=== PATIENT | female | born 1985 | race Caucasian/White ===

== ENCOUNTER 2016-06-13 11:55 | Emergency (ER) | payer OTHER ==
[~2016-06-13] VITALS: Ht 167.6 cm; Wt 136.0 kg
[~2016-06-13 11:55] MED LIST: TRDI60 SC
[2016-06-13 12:02] VITALS: BP 199/120; PULSE 74; TEMP 36.6; O2SAT 96; Ht 167.6 cm; Wt 136.0 kg
[2016-06-13] MEDS ORDERED: PROMETHAZINE HCL INJ 25 MG/ML 1 ML VIAL IM STA (12:49)
[2016-06-13] MEDS ORDERED: MoRPHine SULFATE 10 MG/ML CARP/VIAL IM STA (12:49)
--- NOTE | 2016-06-14 22:23 | EMERGENCY ROOM VISIT NOTE ---
ED Visit Note First contact with patient: 12:22 CHIEF COMPLAINT: Migraine headache. HISTORY OF PRESENT ILLNESS: Ms. Carballo is a 30 year-old white female who ambulates into the ED accompanied by her complaining of a migraine headache. She reports a gradual onset of a severe migraine headache that started approximately 11 hours ago. The pain is constant and it is slowly increasing in severity. This is not the worst headache of the life and is similar to previous migraines. Currently she describes the headache as a constant pressure sensation/pain in the right frontal and temporal areas. She rates the pain a 8/10. The pain is radiating down the right side of the face into the anterior neck area. She has not identified any aggravating factors related to the pain. She reports taking 2 doses of her recently prescribed Imitrex without relief. There is been associated dizziness, light sensitivity and nausea without vomiting; earlier course she also reports that she had mild blurry vision this is normal for her and this is subsequently resolved. She denies fever, chills, sweats, skin eruptions, skin color changes, lightheadedness, hearing changes, difficulty speaking, difficulty swallowing, difficulty ambulating/coordinating body movements, sinus/nasal drainage/ congestion, sore throats, voice changes, neck pain and stiffness, shortness of breath, cough, chest pain/discomfort, abdominal pain, extremity weakness/ numbness/tingling, recent head or eye trauma. REVIEW OF SYSTEMS: As noted above in History of Present Illness. All body systems were reviewed with this patient and found to be negative unless noted above otherwise. PAST MEDICAL HISTORY: Migraine headaches, diabetes, hypertension, asthma, bronchitis, pneumonia, gallbladder disease, unspecified urinary problems, gastroesophageal reflux, status post cholecystectomy, and laparoscopic procedures for exploratory pelvic pain and ovarian cyst. CURRENT MEDICATIONS: Medications Dose Route/Sig Max Daily Dose Days Date Category Dose Instructions Inderal La (Propranolol HCl) 120 Mg Capcr 120 Mg PO DAILY 04/03/16 Reported Ketorolac Tromethamine 60 Mg/2 Ml Inj 60 Mg SC WK PRN 03/19/16 Reported NO MORE THAN ONCE PER WEEK Clonazepam 0.5 Mg Tab 0.5 Mg PO BID PRN 03/19/16 Reported Zofran Odt (Ondansetron HCl) 4 Mg Tab 4 Mg SL Q4H PRN 03/19/16 Reported Meclizine HCl 25 Mg Tab 25 Mg PO TID PRN 03/19/16 Reported Glucophage (Metformin Hcl) 1,000 Mg Tab 1,000 Mg PO DAILY 03/19/16 Reported Sumatriptan Succinate 6 Mg/0.5 Ml Inj 6 Mg SC UD 03/19/16 Reported MAY REPEAT DOSE ONCE IN ONE HOUR IF MIGRAINE PERSIST Excedrin Migraine (Mijukdq-Rixeiumgtdnee-Bzecmaav) 1 Tab Tab 2 Tabs PO UD PRN 01/17/16 Reported TAKE PER PACKAGE DIRECTIONS Control Pills (Miscellaneous) Tab 1 Tab PO DAILY 12/27/15 Reported Sinequan (Doxepin HCl) 25 Mg Cap 25 Mg PO TID 12/12/15 Reported Sertraline HCl 100 Mg Tab 100 Mg PO QPM 11/28/15 Reported Zantac (Ranitidine HCl) 150 Mg Tab 150 Mg PO BID 05/17/15 Reported ALLERGIES TO MEDICATIONS: Verapamil. SOCIAL HISTORY: Patient is currently employed;she feels safe in her home environment; she denies tobacco and alcohol use. PHYSICAL EXAM: Vital Signs: Date Time Temp Pulse Resp B/P Pulse Ox O2 Delivery O2 Flow Rate FiO2 06/13/16 12:02 36.6 74 16 199/120 96 GENERAL: 30 year-old white female in moderate distress due to pain, afebrile and hemodynamically stable. Patient found sitting in a darkened room. NEUROLOGIC: Awake, alert and oriented to person place and time. Answering questions appropriately and following commands. Normal gait. Cranial nerves II- XII grossly intact. Good hand eye coordination. No focal neurologic deficits noted. SKIN: Warm, dry and pink. No rashes, lesions or soft tissue trauma noted. HEENT: Normocephalic, atraumatic. There is no bony deformity, crepitus or abnormal skin lesions. PERRLA. EOMI without nystagmus. Sclera is white and conjunctivae. External ears are nontender. Auditory canals are pink and patent. Tympanic membranes are non bulging and not erythematous. Patient is moderately photophobic precluding funduscopic exam. Oral cavity is moist and pink. Airway is patent. No posterior pharyngeal erythema or edema. NECK: Soft and supple. No tenderness through the central cervical region or cervical musculature. Full range of motion in flexion, extension and rotation of the cervical spine No lymphadenopathy, jugular venous distention, or bruits noted. THORAX: Lungs clear to auscultation and equal bilaterally with no wheezing, crackles, rhonchi or stridor and equal chest wall movements. HEART: Regular rate and rhythm with no murmurs, rubs or gallops. ABDOMEN: Soft and nontender with bowel sounds present in all quadrants; no rigidity, rebound tenderness, organomegaly or guarding. MUSCULOSKELETAL: Full range of motion of all joints without any significant discomfort and the gait is normal. 5/5 muscle strength in flexion, extension, abduction and abduction of the shoulders, flexion and extension of the elbows, pronation supination of the forearms, flexion and extension of the wrist and employment trainer strength. ED COURSE: Patient is assessed with history and physical examination. Patient was given 10 mg of morphine IM and 25 mg of Phenergan IM for the pain and nausea. Patient was reassessed. Patient was educated about her condition and instructed on her treatment plan; she verbalized understanding and agreement with this plan. CLINICAL IMPRESSION: Acute migraine headache. DECISION MAKIN-year-old female who presents for evaluation of headache. She is afebrile, well appearing, and hemodynamically stable. She has no signs of a sinus, dental , or ear infection and no evidence of meningismus. She is neurologically intact. I do not suspect a headache to be secondary to a subarachnoid hemorrhage, meningitis, encephalitis, or intracranial mass lesion. DISPOSITION: Patient was discharged to home in stable condition accompanied by her ; prior to discharge she was reassessed and subjectively reported she was feeling better and rated her discomfort 4/10. DISCHARGE INSTRUCTIONS: Rest at home, in a quiet darkened room and allow the medication to work for the pain. Follow-up with her neurologist for definitive care and treatment. Return to the emergency department as needed for worsening/uncontrolled pain, any abnormal neurological symptoms, fevers or in accordance with your pain management plan.
[2016-07-19] MEDS ORDERED: SNQ/25 PO (02:02)
[2016-09-27] MEDS ORDERED: B-CO1CAP3 PO (13:35)
[2016-12-25] MEDS ORDERED: ZLF/100 PO (13:30)
[2016-12-25] MEDS ORDERED: GABA-112 PO (13:35)
[2016-12-25] MEDS ORDERED: ZNTT/150 PO (13:45)
[2016-12-25] MEDS ORDERED: KETO30IN5 INJ (15:29)
[2016-12-25] MEDS ORDERED: ASPI-390 PO (16:14)
[2016-12-25] MEDS ORDERED: INDSR/120 PO (16:18)
[2016-12-25] MEDS ORDERED: SNQ/50 PO (19:38)
[2016-12-25] MEDS ORDERED: HYDR4TAB2 PO (19:38)
[2016-12-25] MEDS ORDERED: BCPILLS PO (21:01)
[2016-12-25] MEDS ORDERED: SUMA1INJ5 IM (21:06)
[2016-12-25] MEDS ORDERED: ANT25 PO (21:06)
[2016-12-25] MEDS ORDERED: METF-384 PO (21:06)
[2016-12-25] MEDS ORDERED: KLN5X PO (21:12)
[2017-03-22] MEDS ORDERED: BACL10TA PO (13:12)
== END 2016-06-13 13:21 | disposition home or self-care (01) ==
LOC: C.EDB 11:56 → C.EDD 13:21
DX: G43.909 Migraine, unspecified, not intractable, without status migrainosus (principal); J45.909 Unspecified asthma, uncomplicated; K21.9 Gastro-esophageal reflux disease without esophagitis; E11.9 Type 2 diabetes mellitus without complications; I10 Essential (primary) hypertension; Z79.84 Long term (current) use of oral hypoglycemic drugs

== ENCOUNTER 2016-06-26 00:36 | Emergency (ER) | payer OTHER ==
[~2016-06-26] VITALS: Ht 167.6 cm; Wt 137.3 kg
[2016-06-26 00:40] VITALS: Ht 167.6 cm; Wt 137.3 kg
[2016-06-26] MEDS ORDERED: PROMETHAZINE HCL INJ 25 MG/ML 1 ML VIAL IM STA (00:54)
[2016-06-26] MEDS ORDERED: MoRPHine SULFATE 10 MG/ML CARP/VIAL IM STA (00:54)
[2016-06-26 01:38] VITALS: BP 151/99; PULSE 60; TEMP 36.6; O2SAT 98
--- NOTE | 2016-06-26 02:04 | EMERGENCY ROOM VISIT NOTE ---
History Report prepared by Michelle: Henna Sage Under the Supervision of: Dr. Munir Avila M.D. First contact with patient: 00:44 Chief Complaint: HEADACHE Stated Complaint: MIGRAINE,DIZZY,THROWING UP History of Present Illness The patient is a 30 year old female who presents to the Emergency Room via family with complaints of a worsening headache with onset 3 days ago. She rates her pain as a 9/10. Per patient, she has a history of headaches and notes that this headache is like her typical headache. The patient states that the headache is in the back, left side of her head. She is sensitive to light and has nausea. The patient states that she has some weakness in her left arm, but that she has a history of pinched nerves and believes that this is causing her left arm weakness. The patient has some neck stiffness. She denies vomiting, fevers, chance of . Additionally, she notes that her family members are recovering from colds. She also notes that she is not due to blood pressure medications. Source of History: patient, spouse/significant other Onset: 3 days ago Position: head Symptom Intensity: 9/10 Timing: worsening Associated Symptoms: + chills, + nausea, No fevers, No vomiting Note: She is sensitive to light and has some neck stiffness. Review of Systems See HPI for pertinent positives & negatives. A total of 10 systems reviewed and were otherwise negative. Past Medical & Surgical Medical Problems: (1) 38 to 41 weeks gestation of (2) Asthma, Unspecified (3) Benign hypertension (4) Cephalopelvic disproportion (5) Cholecystectomy (6) Diabetes mellitus (7) Diverticulosis Colon (W/O Ment Of Hemorrhage) (8) Headache in (9) intrauterine 25 weeks 3 days (10) Irregular contractions (11) Kidney stone (12) Migraine Unspecified W/O Intractable Migraine (13) Obesity, Nos (14) Ovarian Cyst Nec/Nos (15) Polycystic Ovaries (16) Pure Hypercholesterolem (17) Reflux Esophagitis (18) Removal of ovarian cyst (19) Urin Tract Infection Nos Old medical records were reviewed. Nurse's notes were reviewed and I agree with. Family History Diabetes mellitus FH: cancer FH: gallbladder disease FH: heart disease FH: lung disease Hypertension Kidney disease Kidney stones Social History Smoking Status: Never Smoker Alcohol Use: none Drug Use: none Marital Status: Housing Status: lives with significant other Occupation Status: employed Current/Historical Medications Scheduled Control Pills ( Control Pills), 1 TAB PO DAILY Doxepin (Sinequan), 25 MG PO TID Metformin Hcl (Glucophage), 1,000 MG PO DAILY Propranolol La (Inderal La), 120 MG PO DAILY Ranitidine (Zantac), 150 MG PO BID Sertraline HCl (Sertraline HCl), 100 MG PO QPM Sumatriptan Succinate (Sumatriptan Succinate), 6 MG SC UD Scheduled PRN Ceqvlle-Tlxhxrwvvphjs-Bcoxwhnp (Excedrin Migraine), 2 TABS PO UD PRN for Headache Clonazepam (Clonazepam), 0.5 MG PO BID PRN for Anxiety Ketorolac Tromethamine (Ketorolac Tromethamine), 60 MG SC WK PRN for Pain Meclizine HCl (Meclizine HCl), 25 MG PO TID PRN for Dizziness Ondasetron Odt (Zofran Odt), 4 MG SL Q4H PRN for Nausea Allergies Coded Allergies: Verapamil (Verified Adverse Reaction, Unknown, "Black Out", 06/26/16) Physical Exam Vital Signs Date Time Temp Pulse Resp B/P Pulse Ox O2 Delivery O2 Flow Rate FiO2 06/26/16 01:38 36.6 60 16 151/99 98 06/26/16 01:36 60 16 151/99 98 Room Air 06/26/16 00:40 36.6 61 16 159/100 98 Room Air Physical Exam General: Non ill appearing young female in no acute distress. HEENT: Normal cephalic atraumatic. Pupils are equal round and reactive to light. Sclera anicteric. Extraocular movements are intact. Oropharynx is pink with moist mucous membranes. No swelling of the mouth lips or tongue. Neck: Supple with a midline trachea. No meningeal signs or stiffness, no JVD or bruits. No Stridor. Kernig and Brudzinski signs Chest: Clear to auscultation bilaterally. No wheezes or rhonchi. No increased work of breathing. Heart: regular rate and rhythm. Abdomen: Soft nontender, nondistended without rebound guarding or rigidity. Extremities: No cyanosis clubbing or edema. No calf tenderness or assymetry Spine/Back. Non tender to palpation. No CVA tenderness Skin: Good turgor without rashes. Neurologic exam: Cranial nerves two through 12 are intact. Motor and sensation are intact and symmetrical throughout, no tremor. No numbness or weakness her left arm when I checked it I Medical Decision & Procedures Medications Administered Medications (Trade) Dose Ordered Sig/Bharat Route Start Time Stop Time Status Last Admin Dose Admin Morphine Sulfate (MoRPHine SULFATE INJ) 10 mg NOW STAT IM 06/26/16 00:54 06/26/16 00:55 DC 06/26/16 01:18 10 MG Promethazine HCl (Phenergan Inj) 25 mg NOW STAT IM 06/26/16 00:54 06/26/16 00:55 DC 06/26/16 01:18 25 MG ED Course 0045: Past medical records reviewed. The patient was evaluated in room B6, and a complete history and physical examination were performed. 0054: Phenergan 25 mg IM, Morphine Sulfate 10 mg IM 0005: Upon reevaluation, the patient is doing well. I discussed the results and treatment plan with the patient. She verbalized agreement of the treatment plan. The patient was discharged home. Medical Decision Differentials include, but are not limited to; migraine, infection, CVA, tension headache, meningitis. This patient comes in as described above. I do know her well from previous visits. she is here for headache which is consistent with her typical migraines. She has nothing by history or physical exam to suggest this is a nothing by a typical migraine .she's had no trauma and nothing to suggest meningitis encephalitis or toxicologic process. She has a normal neurologic exam. Her is the bedside and driving .she was given morphine 10 mg IM and Phenergan 25 mg IM. This is her second narcotic shot a month and she is on a two shot a month restriction. She should return if: headaches different than normal, worsening of symptoms, any new problems concerns. She is happy the plan and discharged to home Impression Primary Impression: Migraine Scribe Attestation The scribe's documentation has been prepared under my direction and personally reviewed by me in its entirety. I confirm that the note above accurately reflects all work, treatment, procedures, and medical decision making performed by me. Departure Information Dispostion Home / Self-Care Referrals Patricia Grullon D.O. (PCP) Forms HOME CARE DOCUMENTATION FORM, IMPORTANT VISIT INFORMATION Patient Instructions My [facility] Additional Instructions Rest Drink plenty of fluids Return if: worsening of symptoms, fever, numbness or weakness, any new problems or concerns Follow-up with your doctor on Tuesday for recheck
[2016-07-19] MEDS ORDERED: SNQ/25 PO (02:02)
[2016-09-27] MEDS ORDERED: B-CO1CAP3 PO (13:35)
[2016-12-25] MEDS ORDERED: ZLF/100 PO (13:30)
[2016-12-25] MEDS ORDERED: GABA-112 PO (13:35)
[2016-12-25] MEDS ORDERED: ZNTT/150 PO (13:45)
[2016-12-25] MEDS ORDERED: KETO30IN5 INJ (15:29)
[2016-12-25] MEDS ORDERED: ASPI-390 PO (16:14)
[2016-12-25] MEDS ORDERED: INDSR/120 PO (16:18)
[2016-12-25] MEDS ORDERED: HYDR4TAB2 PO (19:38)
[2016-12-25] MEDS ORDERED: SNQ/50 PO (19:38)
[2016-12-25] MEDS ORDERED: BCPILLS PO (21:01)
[2016-12-25] MEDS ORDERED: METF-384 PO (21:06)
[2016-12-25] MEDS ORDERED: ANT25 PO (21:06)
[2016-12-25] MEDS ORDERED: SUMA1INJ5 IM (21:06)
[2016-12-25] MEDS ORDERED: KLN5X PO (21:12)
== END 2016-06-26 01:39 | disposition home or self-care (01) ==
LOC: C.EDB 00:37
DX: G43.909 Migraine, unspecified, not intractable, without status migrainosus (principal); J45.909 Unspecified asthma, uncomplicated; I10 Essential (primary) hypertension; E11.9 Type 2 diabetes mellitus without complications; E66.9 Obesity, unspecified; E78.00 Pure hypercholesterolemia, unspecified; K21.9 Gastro-esophageal reflux disease without esophagitis; Z83.3 Family history of diabetes mellitus; Z83.79 Family history of other diseases of the digestive system; Z82.49 Family history of ischemic heart disease and other diseases of the circulatory system; Z83.6 Family history of other diseases of the respiratory system; Z84.1 Family history of disorders of kidney and ureter

== ENCOUNTER → 2016-06-29 | Outpatient (CLI) | payer OTHER ==
[~2016-06-29] MED LIST changes: +ANT25 PO; +ASPI-390 PO; +B-CO1CAP3 PO; +BCPILLS PO; +FLX10 PO; +GABA-112 PO; +HYDR-4313 PO; +HYDR-5688 PO; +HYDR4TAB2 PO; +IBUP-1277 PO; +INDSR/120 PO; +KETO30IN5 INJ; +KLN5X PO; +MECL1TAB42 PO; +METF-384 PO; +ONDA4TAB10 SL; +SERT25TA PO; +SNQ/25 PO; +SNQ/50 PO; +SUMA1INJ5 IM; +ZLF/100 PO; +ZNTT/150 PO
== END | disposition home or self-care (01) ==
LOC: C.PAPS 07:50
PROVIDERS: ATTEND Obstetrics & Gynecology
DX: Z12.4 Encounter for screening for malignant neoplasm of cervix (principal)

== ENCOUNTER 2016-07-19 14:52 | Emergency (ER) | payer OTHER ==
[~2016-07-19] VITALS: Ht 167.6 cm; Wt 136.3 kg
[~2016-07-19 14:52] MED LIST changes: -ANT25 PO; -ASPI-390 PO; -B-CO1CAP3 PO; -BCPILLS PO; -FLX10 PO; -GABA-112 PO; -HYDR-4313 PO; -HYDR-5688 PO; -HYDR4TAB2 PO; -IBUP-1277 PO; -INDSR/120 PO; -KETO30IN5 INJ; -KLN5X PO; -MECL1TAB42 PO; -METF-384 PO; -ONDA4TAB10 SL; -SERT25TA PO; -SNQ/50 PO; -SUMA1INJ5 IM; -ZLF/100 PO; -ZNTT/150 PO
[2016-07-19 15:05] VITALS: TEMP 37.1; Ht 167.6 cm; Wt 136.3 kg
[2016-07-19] MEDS ORDERED: PROMETHAZINE HCL INJ 25 MG/ML 1 ML VIAL IM STA (15:21)
[2016-07-19] MEDS ORDERED: MoRPHine SULFATE 10 MG/ML CARP/VIAL IM STA (15:21)
[2016-07-19 16:15] VITALS: BP 159/116; PULSE 82; O2SAT 97
--- NOTE | 2016-07-19 20:54 | EMERGENCY ROOM VISIT NOTE ---
ED Visit Note First contact with patient: 15:10 CHIEF COMPLAINT: Migraine headache. HISTORY OF PRESENT ILLNESS: Ms. Carballo is a 30 year-old white female who ambulates into the ED accompanied by her complaining of a migraine headache. She reports a gradual onset of a severe migraine headache that started approximately 15 hours ago. The pain is constant and it is slowly increasing in severity. This is not the worst headache of the life and is similar to previous migraines. Currently she describes the headache as a constant pressure sensation/pain in the right frontal and temporal areas. She rates the pain a 8/10. The pain is radiating down the right side of the face into the anterior neck area. She has not identified any aggravating factors related to the pain. She reports taking 2 doses of her recently prescribed Imitrex without relief. There is been associated dizziness, light sensitivity and nausea without vomiting; earlier course she also reports that she had mild blurry vision this is normal for her and this is subsequently resolved. She denies fever, chills, sweats, skin eruptions, skin color changes, lightheadedness, hearing changes, difficulty speaking, difficulty swallowing, difficulty ambulating/coordinating body movements, sinus/nasal drainage/ congestion, sore throats, voice changes, neck pain and stiffness, shortness of breath, cough, chest pain/discomfort, abdominal pain, extremity weakness/ numbness/tingling, recent head or eye trauma. REVIEW OF SYSTEMS: As noted above in History of Present Illness. All body systems were reviewed with this patient and found to be negative unless noted above otherwise. PAST MEDICAL HISTORY: Migraine headaches, diabetes, hypertension, asthma, bronchitis, pneumonia, gallbladder disease, unspecified urinary problems, gastroesophageal reflux, status post cholecystectomy, and laparoscopic procedures for exploratory pelvic pain and ovarian cyst. CURRENT MEDICATIONS: Medications Dose Route/Sig Max Daily Dose Days Date Category Dose Instructions Ketorolac Tromethamine 30 Mg/Ml Inj 30 Mg INJ WK PRN 07/19/16 Reported Inderal La (Propranolol HCl) 120 Mg Capcr 120 Mg PO BID 04/03/16 Reported Clonazepam 0.5 Mg Tab 0.5 Mg PO BID PRN 03/19/16 Reported Zofran Odt (Ondansetron HCl) 4 Mg Tab 4 Mg SL Q4H PRN 03/19/16 Reported Meclizine HCl 25 Mg Tab 25 Mg PO TID PRN 03/19/16 Reported Glucophage (Metformin Hcl) 1,000 Mg Tab 1,000 Mg PO DAILY 03/19/16 Reported Sumatriptan Succinate 6 Mg/0.5 Ml Inj 6 Mg SC UD 03/19/16 Reported MAY REPEAT DOSE ONCE IN ONE HOUR IF MIGRAINE PERSIST Excedrin Migraine (Jbrifpy-Koexgrzryailt-Pbojjxlv) 1 Tab Tab 2 Tabs PO UD PRN 01/17/16 Reported TAKE PER PACKAGE DIRECTIONS Control Pills (Miscellaneous) Tab 1 Tab PO DAILY 12/27/15 Reported Sinequan (Doxepin HCl) 25 Mg Cap 25 Mg PO TID 12/12/15 Reported Sertraline HCl 100 Mg Tab 100 Mg PO QPM 11/28/15 Reported Zantac (Ranitidine HCl) 150 Mg Tab 150 Mg PO BID 05/17/15 Reported ALLERGIES TO MEDICATIONS: Verapamil. SOCIAL HISTORY: Patient is currently employed;she feels safe in her home environment; she denies tobacco and alcohol use. PHYSICAL EXAM: Vital Signs: GENERAL: 30 year-old white female in moderate distress due to pain, afebrile and hemodynamically stable. Patient found sitting in a darkened room. NEUROLOGIC: Awake, alert and oriented to person place and time. Answering questions appropriately and following commands. Normal gait. Cranial nerves II- XII grossly intact. Good hand eye coordination. No focal neurologic deficits noted. SKIN: Warm, dry and pink. No rashes, lesions or soft tissue trauma noted. HEENT: Normocephalic, atraumatic. There is no bony deformity, crepitus or abnormal skin lesions. PERRLA. EOMI without nystagmus. Sclera is white and conjunctivae. External ears are nontender. Auditory canals are pink and patent. Tympanic membranes are non bulging and not erythematous. Patient is moderately photophobic precluding funduscopic exam. Oral cavity is moist and pink. Airway is patent. No posterior pharyngeal erythema or edema. NECK: Soft and supple. No tenderness through the central cervical region or cervical musculature. Full range of motion in flexion, extension and rotation of the cervical spine No lymphadenopathy, jugular venous distention, or bruits noted. THORAX: Lungs clear to auscultation and equal bilaterally with no wheezing, crackles, rhonchi or stridor and equal chest wall movements. HEART: Regular rate and rhythm with no murmurs, rubs or gallops. ABDOMEN: Soft and nontender with bowel sounds present in all quadrants; no rigidity, rebound tenderness, organomegaly or guarding. MUSCULOSKELETAL: Full range of motion of all joints without any significant discomfort and the gait is normal. 5/5 muscle strength in flexion, extension, abduction and abduction of the shoulders, flexion and extension of the elbows, pronation supination of the forearms, flexion and extension of the wrist and radio division captain strength. ED COURSE: Patient is assessed with history and physical examination. Patient was given 10 mg of morphine IM and 25 mg of Phenergan IM for the pain and nausea. Patient was reassessed. Patient was educated about her condition and instructed on her treatment plan; she verbalized understanding and agreement with this plan. CLINICAL IMPRESSION: Acute migraine headache. DECISION MAKIN-year-old female who presents for evaluation of headache. She is afebrile, well appearing, and hemodynamically stable. She has no signs of a sinus, dental , or ear infection and no evidence of meningismus. She is neurologically intact. I do not suspect a headache to be secondary to a subarachnoid hemorrhage, meningitis, encephalitis, or intracranial mass lesion. DISPOSITION: Patient was discharged to home in stable condition accompanied by her ; prior to discharge she was reassessed and subjectively reported she was feeling better and reported she was pain-free. DISCHARGE INSTRUCTIONS: Rest at home, in a quiet darkened room and allow the medication to work for the pain. Follow-up with her neurologist for definitive care and treatment. Return to the emergency department as needed for worsening/uncontrolled pain, any abnormal neurological symptoms, fevers or in accordance with your pain management plan.
[2016-09-27] MEDS ORDERED: B-CO1CAP3 PO (13:35)
[2016-12-25] MEDS ORDERED: ZLF/100 PO (13:30)
[2016-12-25] MEDS ORDERED: GABA-112 PO (13:35)
[2016-12-25] MEDS ORDERED: ZNTT/150 PO (13:45)
[2016-12-25] MEDS ORDERED: KETO30IN5 INJ (15:29)
[2016-12-25] MEDS ORDERED: ASPI-390 PO (16:14)
[2016-12-25] MEDS ORDERED: INDSR/120 PO (16:18)
[2016-12-25] MEDS ORDERED: HYDR4TAB2 PO (19:38)
[2016-12-25] MEDS ORDERED: SNQ/50 PO (19:38)
[2016-12-25] MEDS ORDERED: BCPILLS PO (21:01)
[2016-12-25] MEDS ORDERED: METF-384 PO (21:06)
[2016-12-25] MEDS ORDERED: SUMA1INJ5 IM (21:06)
[2016-12-25] MEDS ORDERED: ANT25 PO (21:06)
[2016-12-25] MEDS ORDERED: KLN5X PO (21:12)
== END 2016-07-19 16:17 | disposition home or self-care (01) ==
LOC: C.EDB 14:54 → C.EDD 16:17
DX: G43.909 Migraine, unspecified, not intractable, without status migrainosus (principal); E11.9 Type 2 diabetes mellitus without complications; I10 Essential (primary) hypertension; K21.9 Gastro-esophageal reflux disease without esophagitis; J45.909 Unspecified asthma, uncomplicated; Z79.3 Long term (current) use of hormonal contraceptives; Z79.84 Long term (current) use of oral hypoglycemic drugs; Z79.899 Other long term (current) drug therapy; Z88.8 Allergy status to other drugs, medicaments and biological substances

== ENCOUNTER → 2016-07-26 | Outpatient (CLI) | payer OTHER ==
[~2016-07-26] MED LIST changes: +ANT25 PO; +ASPI-390 PO; +B-CO1CAP3 PO; +BCPILLS PO; +FLX10 PO; +GABA-112 PO; +HYDR-4313 PO; +HYDR-5688 PO; +HYDR4TAB2 PO; +IBUP-1277 PO; +INDSR/120 PO; +KETO30IN5 INJ; +KLN5X PO; +MECL1TAB42 PO; +METF-384 PO; +ONDA4TAB10 SL; +OPTIRAY 320 IV PRN; +SERT25TA PO; +SNQ/50 PO; +SUMA1INJ5 IM; -TRDI60 SC; +ZLF/100 PO; +ZNTT/150 PO
[2016-07-26 16:36] LABS: BASO % 0.3 %; BASO ABS # 0.03 K/uL (0-0.2); EOS % 2.7 %; HEMATOCRIT 38.6 % (37-47); IG% 0.1 %; LYMPH ABS # 2.67 K/uL (1.2-3.4); MEAN CELL VOLUME 82.1 fL (80-100); MEAN CORPUSCULAR HEMOGLOBIN 27.2 pg (25-34); MONO % 4.2 %; NEUT % 62.7 %; PLATELET COUNT 334 K/uL (130-400); WHITE BLOOD COUNT 8.91 K/uL (4.8-10.8)
[2016-07-26 16:44] LABS: COMPLETE YES; MEAN CORPUSCULAR HGB CONC 33.2 g/dl (32-36)
[2016-07-26 16:58] LABS: ALT/SGPT 11 U/L (12-78); AST/SGOT 6 U/L (15-37); BLOOD UREA NITROGEN 13 mg/dl (7-18); BUN/CREATININE RATIO 17.5 (10-20); CALCIUM 8.6 mg/dl (8.5-10.1); CARBON DIOXIDE 28 mmol/L (21-32); CHLORIDE 107 mmol/L (98-107); CREATININE 0.74 mg/dl (0.60-1.20); GLUCOSE 97 mg/dl (70-99); POTASSIUM 3.7 mmol/L (3.5-5.1); SODIUM 142 mmol/L (136-145)
[2016-07-26 17:02] LABS: ALB/GLOB RATIO 0.9 (0.9-2); ALKALINE PHOSPHATASE 85 U/L (45-117)
--- NOTE | 2016-07-26 17:31 | DIAGNOSTIC IMAGING REPORT ---
CT ANGIOGRAM OF THE CHEST CLINICAL HISTORY: Dyspnea. Atypical chest pain. COMPARISON STUDY: Chest x-ray dated 08/26/2014. Chest CT dated 09/25/2013. TECHNIQUE: Following the IV administration of 116 cc of Optiray 320, CT angiogram of the chest was performed from the upper abdomen to the thoracic inlet utilizing the pulmonary embolus protocol. Images are reviewed in the axial, sagittal, and coronal planes. 3-D MIPS images are created and assessed. IV contrast was administered without complication. CT DOSE: 728.01 mGy.cm FINDINGS: Thyroid: Imaged portions of the thyroid gland are normal in size and attenuation. Thoracic aorta: The thoracic aorta is normal in caliber and demonstrates standard 3-vessel arch anatomy. No dissection is seen. Pulmonary vasculature: The pulmonary trunk is dilated, measuring 3.1 cm in diameter. This suggests pulmonary artery hypertension. There are no filling defects identified in main, lobar, or segmental pulmonary branches to suggest pulmonary embolus. Heart: The heart is enlarged and without pericardial effusion. Lungs and pleural spaces: Evaluation of the lung parenchyma is modestly degraded by respiratory motion artifact. The lungs and pleural spaces are clear. The trachea and central airways are patent. Mediastinum: There is no mediastinal lymphadenopathy. [place]: Clear. Axillae: There is no axillary lymphadenopathy. Upper abdomen: There is a small hiatal hernia. The liver is enlarged and steatotic. Skeletal structures: No lytic or blastic bony lesions are seen. IMPRESSION: 1. There is no evidence of pulmonary embolus in the main, lobar, or segmental pulmonary arteries. 2. The lungs are clear. 3. Cardiomegaly with evidence of pulmonary artery hypertension. 4. Hepatic steatosis. Electronically signed by: Patel Ray M.D. 07/26/2016 5:29 PM Dictated Date/Time: 07/26/2016 5:26 PM
[2016-07-26 19:53] LABS: RATIO 33.4 mcg/mg (0-30.0)
[2016-07-27 07:22] LABS: ESTIMATED AVERAGE GLUCOSE 117 mg/dl; HA1C FLAG Normal (Normal)
== END | disposition home or self-care (01) ==
LOC: C.CTS 15:54
PROVIDERS: ATTEND Family Medicine
DX: Z86.718 Personal history of other venous thrombosis and embolism (principal); R53.81 Other malaise; R53.83 Other fatigue; R06.02 Shortness of breath; R06.09 Other forms of dyspnea

== ENCOUNTER 2016-08-01 16:10 | Emergency (ER) | payer OTHER ==
[~2016-08-01] VITALS: Ht 167.6 cm; Wt 136.0 kg
[~2016-08-01 16:10] MED LIST changes: -ANT25 PO; -ASPI-390 PO; -B-CO1CAP3 PO; -BCPILLS PO; -FLX10 PO; -GABA-112 PO; -HYDR-4313 PO; -HYDR-5688 PO; -HYDR4TAB2 PO; -IBUP-1277 PO; -INDSR/120 PO; -KETO30IN5 INJ; -KLN5X PO; -MECL1TAB42 PO; -METF-384 PO; -ONDA4TAB10 SL; -OPTIRAY 320 IV PRN; -SERT25TA PO; -SNQ/50 PO; -SUMA1INJ5 IM; -ZLF/100 PO; -ZNTT/150 PO
[2016-08-01 16:31] VITALS: TEMP 36.8; Ht 167.6 cm; Wt 136.0 kg
[2016-08-01] MEDS ORDERED: PROMETHAZINE HCL INJ 25 MG/ML 1 ML VIAL IM STA (18:36)
[2016-08-01] MEDS ORDERED: MoRPHine SULFATE 10 MG/ML CARP/VIAL IM STA (18:36)
--- NOTE | 2016-08-01 18:39 | EMERGENCY ROOM VISIT NOTE ---
ED Visit Note First contact with patient: 18:31 CHIEF COMPLAINT: "Migraine, dizzy, vomiting". HISTORY OF PRESENT ILLNESS: This 30-year-old female patient presented to the emergency department via private vehicle coming by father with a gradual onset of a severe generalized headache that started this morning when she woke up. The patient states the migraine is similar to their typical migraines. There has been associated photophobia, phonophobia, nausea and vomiting. The patient denies fever or chills recently, and there is no weakness or numbness of the extremities. There is no difficulty with speech or vision. No trauma to the head and no neck pain. The pain is severe, constant, and it is slowly increasing in severity. The patient rates the pain as sharp in the right parietal region and 9/10. The patient has taken Imitrex, Toradol and Excedrin Migraine without relief. This is not the worst headache of the life and is similar to previous migraines. Previous imaging studies of the brain have been normal. Patient denies any fevers, chills, chest pain, shortness of breath. There is no abdominal pain. Patient notes that the symptoms today are similar and identical to those in the past when she receives her typical migraines. REVIEW OF SYSTEMS: A review of systems was performed with positives and pertinent negatives listed in the history of present illness. All other systems were reviewed and are negative. ALLERGIES: Verapamil MEDICATIONS: As noted below PMH: As noted below. SOCIAL HISTORY: Patient lives at home with and denies alcohol and tobacco use. PHYSICAL EXAM: Vital Signs: Reviewed Nurse's notes, vital signs stable. GENERAL : 30-year-old female, who appears in pain, but non toxic in appearance and in no acute distress. MENTAL STATUS: Alert, oriented, and coherent. HEENT: Normocephalic. PERRLA. EOMI. Nares patent without nuchal rigidity. Tympanic membranes pearly sin without erythema or effusion bilaterally. Mucous membranes moist. NECK: Supple, no nuchal rigidity, nontender, no lymphadenopathy. HEART: Regular rhythm and normal rate without murmurs, ectopy, gallops, or rubs. LUNGS: Clear to auscultation bilaterally without wheezes, rales or rhonchi. No accessory muscle use. No retractions. SKIN: Normal. NEUROLOGICAL: Pupils are round, equal and react to light. The patient moves all extremities well and the gait is normal. No abdominal tenderness. EMERGENCY DEPARTMENT COURSE: I examined the patient. The patient is on a 2 narcotic injection per month treatment plan for their migraines. The patient was given 2 mg of morphine and 25 mg of Phenergan both IM per their usual protocol. The differential diagnosis includes acute intracranial bleed, meningitis, encephalitis, mass or mass effect, sinusitis, infection, tumor, headache, temporal arteritis and carbon monoxide exposure, and migraine. The patient was discharged home in stable condition with father driving. In the evaluation and treatment of this patient, the following differential diagnoses were considered: Migraine Headache, Intracranial Hemorrhage, Subdural Hematoma, Subarachnoid Hemorrhage, Cerebral Aneurysm, Temporal/Giant Cell Arteritis, Tension Headache, Meningitis, Encephalitis, or Hydrocephalus. Problem List Medical Problems: (1) Asthma, Unspecified Status: Chronic (2) Benign hypertension Status: Chronic (3) Cholecystectomy Status: Resolved (4) Diabetes mellitus Status: Chronic (5) Diverticulosis Colon (W/O Ment Of Hemorrhage) Status: Chronic (6) Kidney stone Status: Resolved (7) Migraine Unspecified W/O Intractable Migraine Status: Chronic (8) Obesity, Nos Status: Chronic (9) Ovarian Cyst Nec/Nos Status: Chronic (10) Polycystic Ovaries Status: Chronic (11) Pure Hypercholesterolem Status: Chronic (12) Reflux Esophagitis Status: Chronic (13) Removal of ovarian cyst Status: Resolved (14) Urin Tract Infection Nos Status: Resolved Current/Historical Medications Scheduled Control Pills ( Control Pills), 1 TAB PO DAILY Doxepin (Sinequan), 25 MG PO TID Metformin Hcl (Glucophage), 1,000 MG PO DAILY Propranolol La (Inderal La), 120 MG PO BID Ranitidine (Zantac), 150 MG PO BID Sertraline HCl (Sertraline HCl), 100 MG PO QPM Sumatriptan Succinate (Sumatriptan Succinate), 6 MG SC UD Scheduled PRN Tujybrp-Vyrdrmezlfgix-Uqzjydjg (Excedrin Migraine), 2 TABS PO UD PRN for Headache Clonazepam (Clonazepam), 0.5 MG PO BID PRN for Anxiety Ketorolac Tromethamine (Ketorolac Tromethamine), 30 MG INJ WK PRN for Migraine Meclizine HCl (Meclizine HCl), 25 MG PO TID PRN for Dizziness Ondasetron Odt (Zofran Odt), 4 MG SL Q4H PRN for Nausea Allergies Coded Allergies: Verapamil (Verified Adverse Reaction, Unknown, "Black Out", 06/26/16) Vital Signs Date Time Temp Pulse Resp B/P Pulse Ox O2 Delivery O2 Flow Rate FiO2 08/01/16 18:54 60 20 104/63 96 Room Air 08/01/16 16:31 36.8 46 20 138/75 97 Room Air Medications Administered Medications (Trade) Dose Ordered Sig/Bharat Route Start Time Stop Time Status Last Admin Dose Admin Morphine Sulfate (MoRPHine SULFATE INJ) 10 mg NOW STAT IM 08/01/16 18:36 08/01/16 18:38 DC 08/01/16 18:45 10 MG Promethazine HCl (Phenergan Inj) 25 mg NOW STAT IM 08/01/16 18:36 08/01/16 18:38 DC 08/01/16 18:45 25 MG Departure Information Impression Primary Impression: Headache Additional Impression: Nausea & vomiting Dispostion Home / Self-Care Condition GOOD Referrals Patricia Grullon D.O. (PCP) Patient Instructions My [facility] Additional Instructions You have been treated in the Emergency Department for a Headache. You have received pain medicine in the emergency department which impairs your ability to operate a vehicle. It is illegal for you to drive after receiving these medicines. Please continue your prescribed medications. For pain control, you can use the following hboo-rri-onymobl medicines (if >12 yo): - Regular strength (325mg/tab) Tylenol (acetaminophen) 2 tabs every 4-6 hours as needed. Do not exceed 12 tablets in a 24 hour period. Avoid taking more than 4 grams (4000 mg) of Tylenol per day. This includes any other sources of acetaminophen you may take on a regular basis. - Regular strength (200 mg/tab) Advil (ibuprofen) 1-2 tabs every 4-6 hours as needed. Do not exceed a dose of 3200 mg per day. You should relax in a quiet, dark place for the rest of the day. Avoid any possible triggers including: cigarette smoke, caffeine, nicotine, chocolate, wine, beer, loud noises or music, or bright lights. You should schedule a follow-up appointment in 2-3 days with your Primary Care Provider or established Neurologist for further evaluation and treatment of your Headache. Return to the Emergency Department if your current symptoms worsen despite treatment course outlined above, or if you develop any of the following symptoms : intractable pain despite aforementioned treatment course, visual disturbances , loss of vision, unilateral weakness or facial drooping, slurring of speech, loss of coordination, or loss of consciousness. Please return to emergency department with any new/concerning symptoms. Problem Qualifiers Primary Impression: Headache
[2016-08-01 18:54] VITALS: BP 104/63; PULSE 60; O2SAT 96
[2016-09-27] MEDS ORDERED: B-CO1CAP3 PO (13:35)
[2016-12-25] MEDS ORDERED: ZLF/100 PO (13:30)
[2016-12-25] MEDS ORDERED: GABA-112 PO (13:35)
[2016-12-25] MEDS ORDERED: ZNTT/150 PO (13:45)
[2016-12-25] MEDS ORDERED: KETO30IN5 INJ (15:29)
[2016-12-25] MEDS ORDERED: ASPI-390 PO (16:14)
[2016-12-25] MEDS ORDERED: INDSR/120 PO (16:18)
[2016-12-25] MEDS ORDERED: HYDR4TAB2 PO (19:38)
[2016-12-25] MEDS ORDERED: SNQ/50 PO (19:38)
[2016-12-25] MEDS ORDERED: BCPILLS PO (21:01)
[2016-12-25] MEDS ORDERED: METF-384 PO (21:06)
[2016-12-25] MEDS ORDERED: ANT25 PO (21:06)
[2016-12-25] MEDS ORDERED: SUMA1INJ5 IM (21:06)
[2016-12-25] MEDS ORDERED: KLN5X PO (21:12)
== END 2016-08-01 18:55 | disposition home or self-care (01) ==
LOC: C.EDB 16:11 → C.EDD 18:55
DX: R51 Headache (principal); R11.2 Nausea with vomiting, unspecified; I10 Essential (primary) hypertension; E11.9 Type 2 diabetes mellitus without complications; K21.0 Gastro-esophageal reflux disease with esophagitis; E66.9 Obesity, unspecified; Z79.3 Long term (current) use of hormonal contraceptives; Z79.84 Long term (current) use of oral hypoglycemic drugs; Z79.899 Other long term (current) drug therapy

== ENCOUNTER 2016-08-13 20:30 | Emergency (ER) | payer OTHER ==
[~2016-08-13] VITALS: Ht 167.6 cm; Wt 133.4 kg
[2016-08-13 20:35] VITALS: TEMP 37.1; Ht 167.6 cm; Wt 133.4 kg
[2016-08-13] MEDS ORDERED: PROMETHAZINE HCL INJ 25 MG/ML 1 ML VIAL IM STA (20:43)
[2016-08-13] MEDS ORDERED: MoRPHine SULFATE 10 MG/ML CARP/VIAL IM STA (20:43)
--- NOTE | 2016-08-13 20:48 | EMERGENCY ROOM VISIT NOTE ---
History First contact with patient: 20:39 Chief Complaint: HEADACHE Stated Complaint: MIGRAINE History of Present Illness The patient is a 30 year old female who presents to the Emergency Room with complaints of migraine headache which started at 9 PM last night. The patient states the headache is on the right side of her head. She admits to blurred and double vision which is typical for her migraines. The patient admits to nausea but denies any vomiting. The patient took her Excedrin Migraine and other migraine medication. She took Imitrex twice without any relief of the headache. Patient states the headache is similar to her past migraines. This is not the worst headache of her life. She is followed by Dr. Foley and Dr. Colbert for her migraines. Review of Systems 6 system review was performed and was negative unless stated otherwise in history of present illness. Past Medical/Surgical History Medical Problems: (1) 38 to 41 weeks gestation of (2) Asthma, Unspecified (3) Benign hypertension (4) Cephalopelvic disproportion (5) Cholecystectomy (6) Diabetes mellitus (7) Diverticulosis Colon (W/O Ment Of Hemorrhage) (8) Headache in (9) intrauterine 25 weeks 3 days (10) Irregular contractions (11) Kidney stone (12) Migraine Unspecified W/O Intractable Migraine (13) Obesity, Nos (14) Ovarian Cyst Nec/Nos (15) Polycystic Ovaries (16) Pure Hypercholesterolem (17) Reflux Esophagitis (18) Removal of ovarian cyst (19) Urin Tract Infection Nos Family History Diabetes mellitus FH: cancer FH: gallbladder disease FH: heart disease FH: lung disease Hypertension Kidney disease Kidney stones Social History Smoking Status: Never Smoker Alcohol Use: none Drug Use: none Marital Status: Housing Status: lives with significant other Occupation Status: employed Current/Historical Medications Scheduled Control Pills ( Control Pills), 1 TAB PO DAILY Doxepin (Sinequan), 25 MG PO TID Metformin Hcl (Glucophage), 1,000 MG PO DAILY Propranolol La (Inderal La), 120 MG PO BID Ranitidine (Zantac), 150 MG PO BID Sertraline HCl (Sertraline HCl), 100 MG PO QPM Sumatriptan Succinate (Sumatriptan Succinate), 6 MG SC UD Scheduled PRN Edcxlmo-Nflifoutppddx-Tppumcpc (Excedrin Migraine), 2 TABS PO UD PRN for Headache Clonazepam (Clonazepam), 0.5 MG PO BID PRN for Anxiety Ketorolac Tromethamine (Ketorolac Tromethamine), 30 MG INJ WK PRN for Migraine Meclizine HCl (Meclizine HCl), 25 MG PO TID PRN for Dizziness Ondasetron Odt (Zofran Odt), 4 MG SL Q4H PRN for Nausea Allergies Coded Allergies: Verapamil (Verified Adverse Reaction, Unknown, "Black Out", 06/26/16) Physical Exam Vital Signs Date Time Temp Pulse Resp B/P Pulse Ox O2 Delivery O2 Flow Rate FiO2 08/13/16 20:35 37.1 89 18 138/95 96 Room Air Physical Exam VITAL SIGNS: were reviewed as above. GENERAL: 30-year-old white female appears in no acute distress. SKIN: Warm dry and pink. HEAD: Normocephalic and atraumatic. EYES: PERRLA, EOMs intact OROPHARYNX: Is clear and moist TYMPANIC MEMBRANES: clear. NECK: Supple without lymphadenopathy or meningismus. LUNGS: Clear to auscultation without wheezes rales or rhonchi. HEART: Regular rate and rhythm without murmur. ABDOMEN: Soft and nontender to palpation without organomegaly or masses.. EXTREMITIES: Warm and well perfused. NEUROLOGICALLY: Awake alert and oriented without focal deficit. Cranial nerves 2-12 are intact. There is no pronator drift. Cerebellar testing is within normal limits. There is no nystagmus. There is no facial droop. Speech is clear. Vision is grossly normal. MUSCULOSKELETAL: Good muscle tone. No evidence of trauma. Strength is symmetric. Medical Decision & Procedures ED Course The patient was evaluated. The patient is on a treatment plan for her migraine headaches. This will be her first injection for the month. The patient was given her typical treatment regimen of morphine 10 mg IM and 25 mg IM. The patient was reevaluated was feeling better. The patient was discharged home in stable condition. Medical Decision Differential includes: Acute intracranial bleed, trauma, meningitis, encephalitis, increased intracranial pressure, mass or mass effect, facial or dental infection, temporal arteritis, CVA, TIA, acute hypertensive emergency, sinusitis, carbon monoxide exposure. The patient presented with her typical migraine headache symptoms therefore no additional diagnostic imaging was performed. Impression Primary Impression: Migraine Departure Information Dispostion Home / Self-Care Condition GOOD Referrals Patricia Grullon D.O. (PCP) Forms HOME CARE DOCUMENTATION FORM, IMPORTANT VISIT INFORMATION Patient Instructions ED Headache Migraine, My [facility] Additional Instructions Go home and rest in a dark room. Do not drive for the remainder of the day. If symptoms persist or worsen, return to ER. Follow-up with Dr. Foley if you're headaches increase in frequency.
[2016-08-13 21:08] VITALS: BP 136/87; PULSE 96; O2SAT 99
[2016-09-27] MEDS ORDERED: B-CO1CAP3 PO (13:35)
[2016-12-25] MEDS ORDERED: ZLF/100 PO (13:30)
[2016-12-25] MEDS ORDERED: GABA-112 PO (13:35)
[2016-12-25] MEDS ORDERED: ZNTT/150 PO (13:45)
[2016-12-25] MEDS ORDERED: KETO30IN5 INJ (15:29)
[2016-12-25] MEDS ORDERED: ASPI-390 PO (16:14)
[2016-12-25] MEDS ORDERED: INDSR/120 PO (16:18)
[2016-12-25] MEDS ORDERED: SNQ/50 PO (19:38)
[2016-12-25] MEDS ORDERED: HYDR4TAB2 PO (19:38)
[2016-12-25] MEDS ORDERED: BCPILLS PO (21:01)
[2016-12-25] MEDS ORDERED: ANT25 PO (21:06)
[2016-12-25] MEDS ORDERED: SUMA1INJ5 IM (21:06)
[2016-12-25] MEDS ORDERED: METF-384 PO (21:06)
[2016-12-25] MEDS ORDERED: KLN5X PO (21:12)
== END 2016-08-13 21:09 | disposition home or self-care (01) ==
LOC: C.EDB 20:32 → C.EDD 21:09
DX: G43.909 Migraine, unspecified, not intractable, without status migrainosus (principal); I10 Essential (primary) hypertension; E11.9 Type 2 diabetes mellitus without complications; J45.909 Unspecified asthma, uncomplicated; Z79.3 Long term (current) use of hormonal contraceptives; Z79.84 Long term (current) use of oral hypoglycemic drugs; Z79.899 Other long term (current) drug therapy; Z88.8 Allergy status to other drugs, medicaments and biological substances; Z87.19 Personal history of other diseases of the digestive system; Z87.42 Personal history of other diseases of the female genital tract; Z82.49 Family history of ischemic heart disease and other diseases of the circulatory system; Z83.3 Family history of diabetes mellitus; Z83.79 Family history of other diseases of the digestive system; Z84.1 Family history of disorders of kidney and ureter

== ENCOUNTER 2016-08-27 13:30 | Emergency (ER) | payer OTHER ==
[~2016-08-27] VITALS: Ht 167.6 cm; Wt 139.0 kg
[2016-08-27 13:40] VITALS: BP 161/92; PULSE 90; TEMP 37; O2SAT 96; Ht 167.6 cm; Wt 139.0 kg
[2016-08-27] MEDS ORDERED: PROMETHAZINE HCL INJ 25 MG/ML 1 ML VIAL IM STA (14:00)
[2016-08-27] MEDS ORDERED: MoRPHine SULFATE 10 MG/ML CARP/VIAL IM STA (14:00)
--- NOTE | 2016-08-27 14:04 | EMERGENCY ROOM VISIT NOTE ---
ED Visit Note First contact with patient: 13:44 CHIEF COMPLAINT: Migraine headache HISTORY OF PRESENT ILLNESS: This 30-year-old female patient presented to the emergency department with a gradual onset of a severe generalized headache that started yesterday. The patient states the migraine is similar to their typical migraines. There has been associated photophobia, phonophobia, nausea and vomiting. The patient denies fever or chills recently, and there is no weakness or numbness of the extremities. There is no difficulty with speech or vision. No trauma to the head and no neck pain. The pain is severe, constant, and it is slowly increasing in severity. The patient rates the pain as dull and 9/10. The patient has taken Imitrex without relief. This is not the worst headache of the life and is similar to previous migraines. Previous imaging studies of the brain have been normal. REVIEW OF SYSTEMS: A review of systems was performed with positives and pertinent negatives listed in the history of present illness. All other systems were reviewed and are negative. ALLERGIES: Verapamil MEDICATIONS: See EMR PMH: History of chronic migraines SOCIAL HISTORY: Lives locally with family PHYSICAL EXAM: Vital Signs: Reviewed Nurse's notes, vital signs stable. GENERAL: White female, who appears in pain, but non toxic in appearance and in no acute distress. MENTAL STATUS: Alert, oriented, and coherent. HEENT: Normocephalic. PERRLA. EOMI. Nares patent without nuchal rigidity. Tympanic membranes pearly sin without erythema or effusion bilaterally. Mucous membranes moist. NECK: Supple, no nuchal rigidity, nontender, no lymphadenopathy. HEART: Regular rhythm and normal rate without murmurs, ectopy, gallops, or rubs. LUNGS: Clear to auscultation bilaterally without wheezes, rales or rhonchi. No dullness to percussion. No accessory muscle use. No retractions. SKIN: Normal. NEUROLOGICAL: Pupils are round, equal and react to light. The optic fundi are normal and the discs are flat. The patient moves all extremities well and the gait is normal. EMERGENCY DEPARTMENT COURSE: I examined the patient. The patient is on a 2 narcotic injection per month treatment plan for their migraines. Today is her second visit of the month for treatment under her treatment plan. The patient was given 10 mg IM morphine and 25 mg IM Phenergan per their usual protocol. The differential diagnosis includes acute intracranial bleed, meningitis, encephalitis, mass or mass effect, sinusitis, infection, tumor, headache, temporal arteritis and carbon monoxide exposure, and migraine. The patient was discharged home in stable condition with her driving. Problem List Medical Problems: (1) Asthma, Unspecified Status: Chronic (2) Benign hypertension Status: Chronic (3) Cholecystectomy Status: Resolved (4) Diabetes mellitus Status: Chronic (5) Diverticulosis Colon (W/O Ment Of Hemorrhage) Status: Chronic (6) Kidney stone Status: Resolved (7) Migraine Unspecified W/O Intractable Migraine Status: Chronic (8) Obesity, Nos Status: Chronic (9) Ovarian Cyst Nec/Nos Status: Chronic (10) Polycystic Ovaries Status: Chronic (11) Pure Hypercholesterolem Status: Chronic (12) Reflux Esophagitis Status: Chronic (13) Removal of ovarian cyst Status: Resolved (14) Urin Tract Infection Nos Status: Resolved Current/Historical Medications Scheduled Control Pills ( Control Pills), 1 TAB PO DAILY Doxepin (Sinequan), 25 MG PO TID Metformin Hcl (Glucophage), 1,000 MG PO DAILY Propranolol La (Inderal La), 120 MG PO BID Ranitidine (Zantac), 150 MG PO BID Sertraline HCl (Sertraline HCl), 100 MG PO QPM Sumatriptan Succinate (Sumatriptan Succinate), 6 MG SC UD Scheduled PRN Mdhemzr-Crzkzejvjgrqo-Dbzlwsqt (Excedrin Migraine), 2 TABS PO UD PRN for Headache Clonazepam (Clonazepam), 0.5 MG PO BID PRN for Anxiety Ketorolac Tromethamine (Ketorolac Tromethamine), 30 MG INJ WK PRN for Migraine Meclizine HCl (Meclizine HCl), 25 MG PO TID PRN for Dizziness Ondasetron Odt (Zofran Odt), 4 MG SL Q4H PRN for Nausea Allergies Coded Allergies: Verapamil (Verified Adverse Reaction, Unknown, "Black Out", 08/27/16) Vital Signs Date Time Temp Pulse Resp B/P Pulse Ox O2 Delivery O2 Flow Rate FiO2 08/27/16 13:40 37.0 90 18 161/92 96 Room Air Departure Information Impression Primary Impression: Migraine Dispostion Home / Self-Care Condition GOOD Referrals No Doctor, Assigned (PCP) Forms HOME CARE DOCUMENTATION FORM, IMPORTANT VISIT INFORMATION Patient Instructions My [facility] Additional Instructions You were seen and evaluated today on an emergency basis only. This is not a substitute for, or an effort to provide, complete comprehensive medical care. It is not possible to recognize and treat all injuries or illnesses in a single emergency department visit. For this reason it is recommended that you followup with your primary care physician or neurologist this week for ongoing care and evaluation. DO NOT drive, drink alcohol, operate machinery, or perform dangerous activities today. You were given medications in the ER that can affect your ability to safely function or operate a vehicle. Rest today in a quiet, peaceful, dark environment and get a full 8-10 hrs of sleep tonight. Avoid loud noises, smoke/smoking, alcohol, bright lights, stress, or physical exertion today to minimize the chance the headache may return. Continue current medications. Ibuprofen(Motrin, Advil) may be used for fever or pain. Use 600mg every six hours as needed. Take with food. Avoid using more than 2400mg in a 24 hour period. Do not use 2400mg per day for more than three consecutive days without physician direction. Prolonged inappropriate use can lead to stomach upset or ulcers. (AND/OR) Acetaminophen(Tylenol) may be used for fever or pain. Use 1000mg every six hours as needed. Avoid using more than 4000mg in a 24 hour period. Return to the ER for passing out, worsening headache, vision problems, neck stiffness/pain, fevers, vomiting, worsening of your condition, or as needed.
[2016-09-27] MEDS ORDERED: B-CO1CAP3 PO (13:35)
[2016-12-25] MEDS ORDERED: ZLF/100 PO (13:30)
[2016-12-25] MEDS ORDERED: GABA-112 PO (13:35)
[2016-12-25] MEDS ORDERED: ZNTT/150 PO (13:45)
[2016-12-25] MEDS ORDERED: KETO30IN5 INJ (15:29)
[2016-12-25] MEDS ORDERED: ASPI-390 PO (16:14)
[2016-12-25] MEDS ORDERED: INDSR/120 PO (16:18)
[2016-12-25] MEDS ORDERED: SNQ/50 PO (19:38)
[2016-12-25] MEDS ORDERED: HYDR4TAB2 PO (19:38)
[2016-12-25] MEDS ORDERED: BCPILLS PO (21:01)
[2016-12-25] MEDS ORDERED: SUMA1INJ5 IM (21:06)
[2016-12-25] MEDS ORDERED: METF-384 PO (21:06)
[2016-12-25] MEDS ORDERED: ANT25 PO (21:06)
[2016-12-25] MEDS ORDERED: KLN5X PO (21:12)
== END 2016-08-27 14:49 | disposition home or self-care (01) ==
LOC: C.EDB 13:32 → C.EDD 14:49
DX: G43.909 Migraine, unspecified, not intractable, without status migrainosus (principal); J45.909 Unspecified asthma, uncomplicated; I10 Essential (primary) hypertension; E11.9 Type 2 diabetes mellitus without complications; Z87.442 Personal history of urinary calculi; K57.30 Diverticulosis of large intestine without perforation or abscess without bleeding; E66.9 Obesity, unspecified; E78.00 Pure hypercholesterolemia, unspecified; K21.0 Gastro-esophageal reflux disease with esophagitis; Z79.3 Long term (current) use of hormonal contraceptives; Z79.899 Other long term (current) drug therapy

== ENCOUNTER → 2016-09-07 | Outpatient (CLI) | payer OTHER ==
[~2016-09-07] MED LIST changes: +ANT25 PO; +ASPI-390 PO; +B-CO1CAP3 PO; +BACL10TA PO; +BCPILLS PO; +FLX10 PO; +GABA-112 PO; +HYDR-4313 PO; +HYDR-5688 PO; +HYDR4TAB2 PO; +IBUP-1277 PO; +INDSR/120 PO; +KETO30IN5 INJ; +KLN5X PO; +MECL1TAB42 PO; +METF-384 PO; +ONDA4TAB10 SL; +SERT25TA PO; +SNQ/50 PO; +SUMA1INJ5 IM; +ZLF/100 PO; +ZNTT/150 PO
== END | disposition home or self-care (01) ==
LOC: C.PAPS 15:45
PROVIDERS: ATTEND Obstetrics & Gynecology
DX: R87.610 Atypical squamous cells of undetermined significance on cytologic smear of cervix (ASC-US) (principal)

== ENCOUNTER 2016-09-15 13:04 | Emergency (ER) | payer OTHER ==
[~2016-09-15] VITALS: Ht 167.6 cm; Wt 137.5 kg
[~2016-09-15 13:04] MED LIST changes: -ANT25 PO; -ASPI-390 PO; -B-CO1CAP3 PO; -BACL10TA PO; -BCPILLS PO; -FLX10 PO; -GABA-112 PO; -HYDR-4313 PO; -HYDR-5688 PO; -HYDR4TAB2 PO; -IBUP-1277 PO; -INDSR/120 PO; -KETO30IN5 INJ; -KLN5X PO; -MECL1TAB42 PO; -METF-384 PO; -ONDA4TAB10 SL; -SERT25TA PO; -SNQ/50 PO; -SUMA1INJ5 IM; -ZLF/100 PO; -ZNTT/150 PO
[2016-09-15 13:08] VITALS: BP 167/105; PULSE 71; TEMP 36.8; O2SAT 95; Ht 167.6 cm; Wt 137.5 kg
[2016-09-15] MEDS ORDERED: MoRPHine SULFATE 10 MG/ML CARP/VIAL IM STA (13:18)
[2016-09-15] MEDS ORDERED: PROMETHAZINE HCL INJ 25 MG/ML 1 ML VIAL IM STA (13:18)
--- NOTE | 2016-09-16 00:28 | EMERGENCY ROOM VISIT NOTE ---
ED Visit Note First contact with patient: 13:09 CHIEF COMPLAINT: Migraine headache. HISTORY OF PRESENT ILLNESS: Ms. Carballo is a 30 year-old white female who ambulates into the ED accompanied by her and daughter complaining of a migraine headache. She reports a gradual onset of a severe migraine headache that started approximately 15 hours ago. The pain is constant and it is slowly increasing in severity. This is not the worst headache of the life and is similar to previous migraines. Currently she describes the headache as a constant pressure sensation/pain in the right frontal and temporal areas. She rates the pain a /10. The pain is radiating down the right side of the face into the anterior neck area. She has not identified any aggravating factors related to the pain. She reports taking 2 doses of her recently prescribed Imitrex without relief. There is been associated dizziness, light sensitivity and nausea without vomiting; earlier course she also reports that she had mild blurry vision this is normal for her and this is subsequently resolved. She denies fever, chills, sweats, skin eruptions, skin color changes, lightheadedness, hearing changes, difficulty speaking, difficulty swallowing, difficulty ambulating/coordinating body movements, sinus/nasal drainage/ congestion, sore throats, voice changes, neck pain and stiffness, shortness of breath, cough, chest pain/discomfort, abdominal pain, extremity weakness/ numbness/tingling, recent head or eye trauma. REVIEW OF SYSTEMS: As noted above in History of Present Illness. All body systems were reviewed with this patient and found to be negative unless noted above otherwise. PAST MEDICAL HISTORY: Migraine headaches, diabetes, hypertension, asthma, bronchitis, pneumonia, gallbladder disease, unspecified urinary problems, gastroesophageal reflux, status post cholecystectomy, and laparoscopic procedures for exploratory pelvic pain and ovarian cyst. CURRENT MEDICATIONS: Medications Dose Route/Sig Max Daily Dose Days Date Category Dose Instructions Neurontin (Gabapentin) 100 Mg Cap 100 Mg PO TID 09/15/16 Reported B Complex (B-Complex Vitamins) 1 Cap Cap 1 Cap PO DAILY 09/15/16 Reported Ketorolac Tromethamine 30 Mg/Ml Inj 30 Mg INJ WK PRN 07/19/16 Reported Inderal La (Propranolol HCl) 120 Mg Capcr 120 Mg PO BID 04/03/16 Reported Clonazepam 0.5 Mg Tab 0.5 Mg PO BID PRN 03/19/16 Reported Zofran Odt (Ondansetron HCl) 4 Mg Tab 4 Mg SL Q4H PRN 03/19/16 Reported Meclizine HCl 25 Mg Tab 25 Mg PO TID PRN 03/19/16 Reported Glucophage (Metformin Hcl) 1,000 Mg Tab 1,000 Mg PO DAILY 03/19/16 Reported Sumatriptan Succinate 6 Mg/0.5 Ml Inj 6 Mg SC UD 03/19/16 Reported MAY REPEAT DOSE ONCE IN ONE HOUR IF MIGRAINE PERSIST Excedrin Migraine (Ddogtpu-Lzrplvcyefwzo-Ftcsdbal) 1 Tab Tab 2 Tabs PO UD PRN 01/17/16 Reported TAKE PER PACKAGE DIRECTIONS Control Pills (Miscellaneous) Tab 1 Tab PO DAILY 12/27/15 Reported Sinequan (Doxepin HCl) 25 Mg Cap 25 Mg PO TID 12/12/15 Reported Sertraline HCl 100 Mg Tab 100 Mg PO QPM 11/28/15 Reported Zantac (Ranitidine HCl) 150 Mg Tab 150 Mg PO BID 05/17/15 Reported ALLERGIES TO MEDICATIONS: Verapamil. SOCIAL HISTORY: Patient is currently employed;she feels safe in her home environment; she denies tobacco and alcohol use. PHYSICAL EXAM: Vital Signs: Date Time Temp Pulse Resp B/P Pulse Ox O2 Delivery O2 Flow Rate FiO2 09/15/16 13:08 36.8 71 18 167/105 95 Room Air GENERAL: 30 year-old white female in moderate distress due to pain, afebrile and hemodynamically stable. Patient found sitting in a darkened room. NEUROLOGIC: Awake, alert and oriented to person place and time. Answering questions appropriately and following commands. Normal gait. Cranial nerves II- XII grossly intact. Good hand eye coordination. No focal neurologic deficits noted. SKIN: Warm, dry and pink. No rashes, lesions or soft tissue trauma noted. HEENT: Normocephalic, atraumatic. There is no bony deformity, crepitus or abnormal skin lesions. PERRLA. EOMI without nystagmus. Sclera is white and conjunctivae. External ears are nontender. Auditory canals are pink and patent. Tympanic membranes are non bulging and not erythematous. Patient is moderately photophobic precluding funduscopic exam. Oral cavity is moist and pink. Airway is patent. No posterior pharyngeal erythema or edema. NECK: Soft and supple. No tenderness through the central cervical region or cervical musculature. Full range of motion in flexion, extension and rotation of the cervical spine No lymphadenopathy, jugular venous distention, or bruits noted. THORAX: Lungs clear to auscultation and equal bilaterally with no wheezing, crackles, rhonchi or stridor and equal chest wall movements. HEART: Regular rate and rhythm with no murmurs, rubs or gallops. ABDOMEN: Soft and nontender with bowel sounds present in all quadrants; no rigidity, rebound tenderness, organomegaly or guarding. MUSCULOSKELETAL: Full range of motion of all joints without any significant discomfort and the gait is normal. 5/5 muscle strength in flexion, extension, abduction and abduction of the shoulders, flexion and extension of the elbows; forearm and wrist strengths were not tested because patient was placed in a splint by orthopedics for carpal tunnel syndrome. ED COURSE: Patient is assessed with history and physical examination. Patient was given 10 mg of morphine IM and 25 mg of Phenergan IM for the pain and nausea. Patient was reassessed. Patient was educated about her condition and instructed on her treatment plan; she verbalized understanding and agreement with this plan. CLINICAL IMPRESSION: Acute migraine headache. DECISION MAKIN-year-old female who presents for evaluation of headache. She is afebrile, well appearing, and hemodynamically stable. She has no signs of a sinus, dental , or ear infection and no evidence of meningismus. She is neurologically intact. I do not suspect a headache to be secondary to a subarachnoid hemorrhage, meningitis, encephalitis, or intracranial mass lesion. DISPOSITION: Patient was discharged to home in stable condition accompanied by her ; prior to discharge she was reassessed and subjectively reported she was feeling better and rated her discomfort 6/10. DISCHARGE INSTRUCTIONS: Rest at home, in a quiet darkened room and allow the medication to work for the pain. Follow-up with her neurologist for definitive care and treatment. Return to the ED as needed for worsening/uncontrolled pain, any abnormal neurological symptoms, fevers or in accordance with your pain management plan.
[2016-09-27] MEDS ORDERED: B-CO1CAP3 PO (13:35)
[2016-12-25] MEDS ORDERED: ZLF/100 PO (13:30)
[2016-12-25] MEDS ORDERED: GABA-112 PO (13:35)
[2016-12-25] MEDS ORDERED: ZNTT/150 PO (13:45)
[2016-12-25] MEDS ORDERED: KETO30IN5 INJ (15:29)
[2016-12-25] MEDS ORDERED: ASPI-390 PO (16:14)
[2016-12-25] MEDS ORDERED: INDSR/120 PO (16:18)
[2016-12-25] MEDS ORDERED: SNQ/50 PO (19:38)
[2016-12-25] MEDS ORDERED: HYDR4TAB2 PO (19:38)
[2016-12-25] MEDS ORDERED: BCPILLS PO (21:01)
[2016-12-25] MEDS ORDERED: SUMA1INJ5 IM (21:06)
[2016-12-25] MEDS ORDERED: METF-384 PO (21:06)
[2016-12-25] MEDS ORDERED: ANT25 PO (21:06)
[2016-12-25] MEDS ORDERED: KLN5X PO (21:12)
[2017-03-22] MEDS ORDERED: BACL10TA PO (13:12)
== END 2016-09-15 13:37 | disposition home or self-care (01) ==
LOC: C.EDB 13:05 → C.EDD 13:37
DX: G43.909 Migraine, unspecified, not intractable, without status migrainosus (principal); R11.0 Nausea; E11.9 Type 2 diabetes mellitus without complications; I10 Essential (primary) hypertension; Z79.899 Other long term (current) drug therapy

== ENCOUNTER 2016-09-27 18:43 | Emergency (ER) | payer OTHER ==
[~2016-09-27] VITALS: Ht 167.6 cm; Wt 138.0 kg
[~2016-09-27 18:43] MED LIST changes: +B-CO1CAP3 PO
[2016-09-27 18:45] VITALS: TEMP 36.8; Ht 167.6 cm; Wt 138.0 kg
[2016-09-27] MEDS ORDERED: MoRPHine SULFATE 10 MG/ML CARP/VIAL IM STA (18:48)
[2016-09-27] MEDS ORDERED: PROMETHAZINE HCL INJ 25 MG/ML 1 ML VIAL IM STA (18:48)
--- NOTE | 2016-09-27 19:08 | EMERGENCY ROOM VISIT NOTE ---
History Report prepared by Michelle: Doroteo Ewing Under the Supervision of: Dr. Gunnar Gonzales M.D. First contact with patient: 18:47 Chief Complaint: HEADACHE Stated Complaint: MIGRAINE,DIZZY History of Present Illness The patient is a 30 year old female who presents to the Emergency Room with complaints of worsening headache that started yesterday morning. The patient states that her symptoms started gradually and have been worsening slowly. She tried her medications at home without any relief of her symptoms. The patient rates her discomfort as a 9 out of 10 in severity. She has been following up with her Neurologist, Dr. Foley, and notes she has a MRI scheduled. She states her migraine symptoms today are like her regular migraines. Source of History: patient Onset: yesterday morning Position: head Symptom Intensity: 9/10 in severity Timing: worsening Review of Systems See HPI for pertinent positives & negatives. A total of 10 systems reviewed and were otherwise negative. Past Medical & Surgical Medical Problems: (1) 38 to 41 weeks gestation of (2) Asthma, Unspecified (3) Benign hypertension (4) Cephalopelvic disproportion (5) Cholecystectomy (6) Diabetes mellitus (7) Diverticulosis Colon (W/O Ment Of Hemorrhage) (8) Headache in (9) intrauterine 25 weeks 3 days (10) Irregular contractions (11) Kidney stone (12) Migraine Unspecified W/O Intractable Migraine (13) Obesity, Nos (14) Ovarian Cyst Nec/Nos (15) Polycystic Ovaries (16) Pure Hypercholesterolem (17) Reflux Esophagitis (18) Removal of ovarian cyst (19) Urin Tract Infection Nos Family History Diabetes mellitus FH: cancer FH: gallbladder disease FH: heart disease FH: lung disease Hypertension Kidney disease Kidney stones Social History Smoking Status: Former Smoker Alcohol Use: none Drug Use: none Marital Status: Housing Status: lives with significant other Occupation Status: employed Current/Historical Medications Scheduled B-Complex Vitamins (B Complex), 1 CAP PO DAILY Control Pills ( Control Pills), 1 TAB PO DAILY Doxepin Hcl (Sinequan), 50 MG PO BID Gabapentin (Neurontin), 100 MG PO TID Hydromorphone Hcl (Dilaudid), 2-4 MG PO PRN UD Metformin Hcl (Glucophage), 1,000 MG PO DAILY Propranolol La (Inderal La), 120 MG PO BID Ranitidine (Zantac), 150 MG PO BID Sertraline HCl (Sertraline HCl), 100 MG PO QPM Sumatriptan Succinate (Sumatriptan Succinate), 6 MG SC UD Scheduled PRN Hezliqb-Hslurgirmyzmp-Iphctcpg (Excedrin Migraine), 2 TABS PO UD PRN for Headache Clonazepam (Clonazepam), 0.5 MG PO BID PRN for Anxiety Ketorolac Tromethamine (Ketorolac Tromethamine), 30 MG INJ WK PRN for Migraine Meclizine HCl (Meclizine HCl), 25 MG PO TID PRN for Dizziness Ondasetron Odt (Zofran Odt), 4 MG SL Q4H PRN for Nausea Allergies Coded Allergies: Verapamil (Verified Adverse Reaction, Unknown, "Black Out", 08/27/16) Physical Exam Vital Signs Date Time Temp Pulse Resp B/P Pulse Ox O2 Delivery O2 Flow Rate FiO2 09/27/16 19:42 81 16 143/101 97 09/27/16 18:45 36.8 85 16 163/101 96 Room Air Physical Exam GENERAL: Patient is a healthy-appearing well-nourished HEAD: Normocephalic atraumatic EYES: Ocular movements intact pupils equal and react to light OROPHARYNX mucous membranes are moist no exudates present no erythema or edema present NECK: Supple no nuchal rigidity CHEST: Good equal expansion LUNGS: Clear and equal to auscultation CARDIAC: Normal S1 and S2 ABDOMEN: Soft nontender no guarding BACK: No CVA tenderness EXTREMITIES: No pain upon palpation normal muscle strength in all groups no clubbing cyanosis or edema NEURO: Patient is following commands is answering questions appropriately. Alert and oriented x3 Cranial Nerves 2-12 grossly intact. No evidence of meningitis or encephalitis on exam. Medical Decision & Procedures Medications Administered Medications (Trade) Dose Ordered Sig/Bharat Route Start Time Stop Time Status Last Admin Dose Admin Morphine Sulfate (MoRPHine SULFATE INJ) 10 mg NOW STAT IM 09/27/16 18:48 09/27/16 18:49 DC 09/27/16 19:01 10 MG Promethazine HCl (Phenergan Inj) 25 mg NOW STAT IM 09/27/16 18:48 09/27/16 18:49 DC 09/27/16 19:01 25 MG ED Course 1842: Past medical records reviewed. The patient was evaluated in room B3. A complete history and physical examination was performed. 1847: Ordered Phenergan Inj 25 mg IM, Morphine Sulfate 10 mg IM. 1911: Upon reexamination the patient is resting comfortably. I discussed results and treatment plan with the patient. She verbalizes agreement and understanding. The patient is ready for discharge. Medical Decision Differential diagnosis: Etiologies such as migraine headache, meningitis, sinusitis, CO exposure, ICH, SAH, infection, tumor, headache, sinus thrombosis, arterial dissection, as well as others were entertained. This is a 30-year-old female who presents emergency department complaining of headache. The patient has no evidence of meningitis encephalitis on examination. The patient was given morphine as well as Phenergan for her pain and according to her treatment plan options. I do believe the patient as well as to be discharged home for follow-up with her primary care physician. Patient was in agreement with the treatment plan. Impression Primary Impression: Migraine Scribe Attestation The scribe's documentation has been prepared under my direction and personally reviewed by me in its entirety. I confirm that the note above accurately reflects all work, treatment, procedures, and medical decision making performed by me. Departure Information Dispostion Home / Self-Care Referrals Patricia Grullon D.O. (PCP) Forms HOME CARE DOCUMENTATION FORM, IMPORTANT VISIT INFORMATION Patient Instructions ED Headache Migraine, Headache Pain, My [facility] Additional Instructions You have been examined and treated today on an emergency basis only. This is not a substitute for, or an effort to provide, complete comprehensive medical care. It is impossible to recognize and treat all injuries or illnesses in a single emergency department visit. It is therefore important that you follow up closely with Dr Grullon. Call as soon as possible for an appointment. Thank you for your time and consideration. I look forward to speaking with you again soon. Please don't hesitate to call us if you have any questions. Problem Qualifiers Primary Impression: Migraine Migraine type: unspecified Status migrainosus presence: without status migrainosus Intractability: not intractable Qualified Codes: G43.909 - Migraine, unspecified, not intractable, without status migrainosus
[2016-09-27 19:42] VITALS: BP 143/101; PULSE 81; O2SAT 97
[2016-09-27] MEDS ORDERED: ONDA4TAB10 SL (21:06)
[2016-12-25] MEDS ORDERED: ZLF/100 PO (13:30)
[2016-12-25] MEDS ORDERED: GABA-112 PO (13:35)
[2016-12-25] MEDS ORDERED: ZNTT/150 PO (13:45)
[2016-12-25] MEDS ORDERED: KETO30IN5 INJ (15:29)
[2016-12-25] MEDS ORDERED: ASPI-390 PO (16:14)
[2016-12-25] MEDS ORDERED: INDSR/120 PO (16:18)
[2016-12-25] MEDS ORDERED: SNQ/50 PO (19:38)
[2016-12-25] MEDS ORDERED: HYDR4TAB2 PO (19:38)
[2016-12-25] MEDS ORDERED: BCPILLS PO (21:01)
[2016-12-25] MEDS ORDERED: ANT25 PO (21:06)
[2016-12-25] MEDS ORDERED: METF-384 PO (21:06)
[2016-12-25] MEDS ORDERED: SUMA1INJ5 IM (21:06)
[2016-12-25] MEDS ORDERED: KLN5X PO (21:12)
[2017-03-22] MEDS ORDERED: BACL10TA PO (13:12)
== END 2016-09-27 19:43 | disposition home or self-care (01) ==
LOC: C.EDB 18:44
DX: G43.909 Migraine, unspecified, not intractable, without status migrainosus (principal); E11.9 Type 2 diabetes mellitus without complications; I10 Essential (primary) hypertension; E78.00 Pure hypercholesterolemia, unspecified; K21.0 Gastro-esophageal reflux disease with esophagitis; J45.909 Unspecified asthma, uncomplicated; N83.209 Unspecified ovarian cyst, unspecified side; E28.2 Polycystic ovarian syndrome; K57.30 Diverticulosis of large intestine without perforation or abscess without bleeding; Z87.440 Personal history of urinary (tract) infections; Z87.442 Personal history of urinary calculi; Z90.49 Acquired absence of other specified parts of digestive tract; Z87.891 Personal history of nicotine dependence; Z79.84 Long term (current) use of oral hypoglycemic drugs; Z79.899 Other long term (current) drug therapy; Z88.8 Allergy status to other drugs, medicaments and biological substances; Z83.3 Family history of diabetes mellitus; Z80.9 Family history of malignant neoplasm, unspecified; Z83.79 Family history of other diseases of the digestive system; Z82.49 Family history of ischemic heart disease and other diseases of the circulatory system; Z84.1 Family history of disorders of kidney and ureter

== ENCOUNTER 2016-10-07 15:24 | Emergency (ER) | payer OTHER ==
[~2016-10-07] VITALS: Ht 167.6 cm; Wt 135.1 kg
[~2016-10-07 15:24] MED LIST changes: +ONDA4TAB10 SL; -SNQ/25 PO
[2016-10-07 15:30] VITALS: TEMP 36.7; Ht 167.6 cm; Wt 135.1 kg
[2016-10-07] MEDS ORDERED: SODIUM CHLORIDE 0.9% 1000ML 1,000 ML IV STA (15:37)
--- NOTE | 2016-10-07 15:57 | DIAGNOSTIC IMAGING REPORT ---
SINGLE VIEW CHEST CLINICAL HISTORY: Change in mental status. Weakness. Nausea and dizziness. FINDINGS: An AP, portable, upright chest radiograph is compared to study dated 08/26/2014 and correlated with chest CT dated 07/26/2016. The examination is degraded by portable technique and large body habitus. The heart is enlarged. The pulmonary vasculature is noncongested. The lungs and pleural spaces are clear. No pneumothorax is seen. The bony thorax is grossly intact. IMPRESSION: Cardiac enlargement with no acute cardiopulmonary abnormality. Electronically signed by: Patel Ray M.D. 10/07/2016 3:56 PM Dictated Date/Time: 10/07/2016 3:55 PM
[2016-10-07] MEDS ORDERED: ONDANSETRON INJ 2 MG/ML 2 ML VIAL IM STA (16:08)
[2016-10-07] MEDS ORDERED: ONDA4TAB10 SL (16:31)
[2016-10-07] MEDS ORDERED: MECL1TAB42 PO (16:31)
--- NOTE | 2016-10-07 16:31 | EMERGENCY ROOM VISIT NOTE ---
History Report prepared by Michelle: Paula Cobos Under the Supervision of: Dr. Gunnar Paris D.O. First contact with patient: 15:37 Chief Complaint: VERTIGO Stated Complaint: DIZZY, NAUSEA Nursing Triage Summary: vertigo symptoms started last night aroun 8 pm. Cant get appointment with pcp. took the medicine they perscribed me for this in the past but it isnt helping History of Present Illness The patient is a 30 year old female who presents to the Emergency Room with complaints of persistent dizziness that began last evening around 0800. The patient states that she has a history of vertigo and has Meclizine and Zofran at home for her symptoms. She states that last evening she developed left ear ringing, nausea, and vomiting. The patient states that she tried getting in to see her PCP today, but states that there were no openings. She states that she took her last Zofran medication at 1230, but her symptoms persisted. Source of History: patient Onset: last evening around 0800 Position: other (global) Quality: other (dizziness) Timing: other (persistent) Associated Symptoms: + nausea, + vomiting Note: Associated Symptoms: left ear ringing. Review of Systems See HPI for pertinent positives & negatives. A total of 10 systems reviewed and were otherwise negative. Past Medical & Surgical Medical Problems: (1) 38 to 41 weeks gestation of (2) Asthma, Unspecified (3) Benign hypertension (4) Cephalopelvic disproportion (5) Cholecystectomy (6) Diabetes mellitus (7) Diverticulosis Colon (W/O Ment Of Hemorrhage) (8) Headache in (9) intrauterine 25 weeks 3 days (10) Irregular contractions (11) Kidney stone (12) Migraine Unspecified W/O Intractable Migraine (13) Obesity, Nos (14) Ovarian Cyst Nec/Nos (15) Polycystic Ovaries (16) Pure Hypercholesterolem (17) Reflux Esophagitis (18) Removal of ovarian cyst (19) Urin Tract Infection Nos Family History Diabetes mellitus FH: cancer FH: gallbladder disease FH: heart disease FH: lung disease Hypertension Kidney disease Kidney stones Social History Smoking Status: Never Smoker Alcohol Use: none Drug Use: none Marital Status: Housing Status: lives with significant other Occupation Status: employed Current/Historical Medications Scheduled B-Complex Vitamins (B Complex), 1 CAP PO DAILY Control Pills ( Control Pills), 1 TAB PO DAILY Doxepin Hcl (Sinequan), 50 MG PO BID Gabapentin (Neurontin), 100 MG PO TID Hydromorphone Hcl (Dilaudid), 2-4 MG PO PRN UD Metformin Hcl (Glucophage), 1,000 MG PO DAILY Propranolol La (Inderal La), 120 MG PO BID Ranitidine (Zantac), 150 MG PO BID Sertraline HCl (Sertraline HCl), 100 MG PO QPM Sumatriptan Succinate (Sumatriptan Succinate), 6 MG SC UD Scheduled PRN Yokaqli-Dpdjfcagnlepa-Ssqgtenv (Excedrin Migraine), 2 TABS PO UD PRN for Headache Clonazepam (Clonazepam), 0.5 MG PO BID PRN for Anxiety Ketorolac Tromethamine (Ketorolac Tromethamine), 30 MG INJ WK PRN for Migraine Meclizine HCl (Meclizine HCl), 25 MG PO TID PRN for Dizziness Ondasetron Odt (Zofran Odt), 4 MG SL Q4H PRN for Nausea Allergies Coded Allergies: Verapamil (Verified Adverse Reaction, Unknown, "Black Out", 08/27/16) Physical Exam Vital Signs Date Time Temp Pulse Resp B/P Pulse Ox O2 Delivery O2 Flow Rate FiO2 10/07/16 15:30 36.7 88 18 165/99 96 Room Air Physical Exam VITAL SIGNS: were reviewed as above. GENERAL:Non-toxic in appearance. SKIN: Warm dry and pink. HEAD: Normocephalic and atraumatic. OROPHARYNX: Is clear and moist NECK: Supple without lymphadenopathy or meningismus. LUNGS: clear. HEART: Regular rate and rhythm. ABDOMEN: Soft and nontender. EXTREMITIES: Warm and well perfused. NEUROLOGICALLY: Awake alert and oriented without focal deficit. Cranial nerves 2 -12 are intact. There is no pronator drift. Cerebellar testing is within normal limits. There is no nystagmus. There is no facial droop. Speech is clear. Vision is grossly normal. MUSCULOSKELETAL: Good muscle tone. No evidence of trauma. Medical Decision & Procedures ER Provider Diagnostic Interpretation: X ray results and stated below per my interpretation and radiology interpretation. SINGLE VIEW CHEST CLINICAL HISTORY: Change in mental status. Weakness. Nausea and dizziness. FINDINGS: An AP, portable, upright chest radiograph is compared to study dated 08/26/2014 and correlated with chest CT dated 07/26/2016. The examination is degraded by portable technique and large body habitus. The heart is enlarged. The pulmonary vasculature is noncongested. The lungs and pleural spaces are clear. No pneumothorax is seen. The bony thorax is grossly intact. IMPRESSION: Cardiac enlargement with no acute cardiopulmonary abnormality. Electronically signed by: Patel Ray M.D. 10/07/2016 3:56 PM Dictated Date/Time: 10/07/2016 3:55 PM Laboratory Results Test 10/07/16 15:37 Creatine Kinase MB Ratio (0-3.0) The patient declined all laboratory work that was ordered. Medications Administered Medications (Trade) Dose Ordered Sig/Bharat Route Start Time Stop Time Status Last Admin Dose Admin Ondansetron HCl (Zofran Inj) 4 mg NOW STAT IM 10/07/16 16:08 10/07/16 16:10 DC 10/07/16 16:18 4 MG ECG Indication: other (dizziness) Rate (beats per minute): 80 Rhythm: normal sinus Findings: no acute ischemic change, no ectopy ED Course 1602: Previous medical records were reviewed. The patient was evaluated in room A12B. A complete history and physical examination was performed. I discussed all the exam findings with her and I discussed the treatment plan. She verbalized complete understanding and agreement. She is ready to go home after she receives her medications and prescriptions. 1608: Ordered Zofran Inj 4 mg IM. Medical Decision Differential includes acute coronary syndrome, myocardial infarction, CVA, TIA, anemia, infection, pneumonia, UTI, pyelonephritis, poor nutrition, dehydration, electrolyte disturbance,hypoglycemia. This is a 30-year-old female who presents to the ED with a chief complaint of vertigo. The patient reports dizziness as well as some nausea this morning. She presented because she ran out of nausea medication and she took her last meclizine. She did not want IV fluids or blood work. She essentially wanted some medication for her symptoms. The patient's neurologic and general exam were normal. She was treated with IM Zofran. A prescription for Zofran and meclizine were provided. Impression Primary Impression: Dizziness Scribe Attestation The scribe's documentation has been prepared under my direction and personally reviewed by me in its entirety. I confirm that the note above accurately reflects all work, treatment, procedures, and medical decision making performed by me. Departure Information Dispostion Home / Self-Care Prescriptions Meclizine Hcl (MECLIZINE HCL) 25 Mg Tab 1 TAB PO TID Y for Dizziness or Vertigo for 10 Days, #15 TAB Prov: Gunnar Paris D.O. 10/07/16 Ondasetron Odt (ZOFRAN ODT) 4 Mg Tab 4 MG SL Q6H for Nausea, #15 TAB Prov: Gunnar Paris D.O. 10/07/16 Referrals Patricia Grullon D.O. (PCP) Patient Instructions [facility] Additional Instructions Zofran: Allow one tablet to dissolve under the tongue every 6 hours as needed for nausea or vomiting. Meclizine as prescribed for dizziness. Follow-up with your doctor for further care and evaluation in 1-2 days. Return to the emergency department for worsening or new symptoms or any concerns. You have been examined and treated today on an emergency basis only. This is not a substitute for, or an effort to provide, complete comprehensive medical care. It is impossible to recognize and treat all injuries or illnesses in a single emergency department visit. It is therefore important that you follow up closely with your doctor. Call as soon as possible for an appointment.
[2016-10-07 16:39] VITALS: BP 138/102; PULSE 85; O2SAT 94
[2016-12-25] MEDS ORDERED: ZLF/100 PO (13:30)
[2016-12-25] MEDS ORDERED: GABA-112 PO (13:35)
[2016-12-25] MEDS ORDERED: ZNTT/150 PO (13:45)
[2016-12-25] MEDS ORDERED: KETO30IN5 INJ (15:29)
[2016-12-25] MEDS ORDERED: ASPI-390 PO (16:14)
[2016-12-25] MEDS ORDERED: INDSR/120 PO (16:18)
[2016-12-25] MEDS ORDERED: SNQ/50 PO (19:38)
[2016-12-25] MEDS ORDERED: HYDR4TAB2 PO (19:38)
[2016-12-25] MEDS ORDERED: BCPILLS PO (21:01)
[2016-12-25] MEDS ORDERED: SUMA1INJ5 IM (21:06)
[2016-12-25] MEDS ORDERED: ANT25 PO (21:06)
[2016-12-25] MEDS ORDERED: METF-384 PO (21:06)
[2016-12-25] MEDS ORDERED: KLN5X PO (21:12)
[2017-03-22] MEDS ORDERED: BACL10TA PO (13:12)
== END 2016-10-07 16:40 | disposition home or self-care (01) ==
LOC: C.EDB 15:25 → C.EDA 16:40
DX: R42 Dizziness and giddiness (principal); J45.909 Unspecified asthma, uncomplicated; I10 Essential (primary) hypertension; Z90.49 Acquired absence of other specified parts of digestive tract; E11.9 Type 2 diabetes mellitus without complications; K21.0 Gastro-esophageal reflux disease with esophagitis; E28.2 Polycystic ovarian syndrome; E66.9 Obesity, unspecified; Z68.42 Body mass index [BMI] 45.0-49.9, adult; Z87.442 Personal history of urinary calculi; Z87.440 Personal history of urinary (tract) infections; Z98.890 Other specified postprocedural states; Z79.84 Long term (current) use of oral hypoglycemic drugs; Z79.899 Other long term (current) drug therapy; Z83.3 Family history of diabetes mellitus; Z82.49 Family history of ischemic heart disease and other diseases of the circulatory system; Z84.1 Family history of disorders of kidney and ureter

== ENCOUNTER 2016-10-19 15:57 | Emergency (ER) | payer OTHER ==
[~2016-10-19] VITALS: Ht 167.6 cm; Wt 135.0 kg
[2016-10-19 16:00] VITALS: BP 151/94; PULSE 75; TEMP 36.9; O2SAT 96; Ht 167.6 cm; Wt 135.0 kg
[2016-10-19] MEDS ORDERED: MoRPHine SULFATE 10 MG/ML CARP/VIAL IM STA (16:14)
[2016-10-19] MEDS ORDERED: PROMETHAZINE HCL INJ 25 MG/ML 1 ML VIAL IM STA (16:14)
--- NOTE | 2016-10-19 16:25 | EMERGENCY ROOM VISIT NOTE ---
History First contact with patient: 16:03 Chief Complaint: HEADACHE Stated Complaint: MIGRAINE History of Present Illness The patient is a 30 year old female who presents to the Emergency Room with complaints of a migraine headache that started in last evening. The patient has a history of chronic migraines, and reports that this feels the same. Her headache is left-sided today with photophobia and nausea. She denies vomiting. The patient is currently under the management of Dr. Foley. She is scheduled for a cervical spine MRI this Tuesday as she had an abnormal EMG test. Dr. Foley is stating that her migraines could be caused by her neck. The patient denies any recent neck injury. She has had occasional paresthesias of the left upper extremity. The patient denies any recent head injury, sinus congestion, fevers or risk of carbon monoxide exposure. She rates her headache a 9 out of 10. Review of Systems 10 system review was performed and was negative except for pertinent positives and negatives as indicated in history of present illness Past Medical/Surgical History Medical Problems: (1) 38 to 41 weeks gestation of (2) Asthma, Unspecified (3) Benign hypertension (4) Cephalopelvic disproportion (5) Cholecystectomy (6) Diabetes mellitus (7) Diverticulosis Colon (W/O Ment Of Hemorrhage) (8) Headache in (9) intrauterine 25 weeks 3 days (10) Irregular contractions (11) Kidney stone (12) Migraine Unspecified W/O Intractable Migraine (13) Obesity, Nos (14) Ovarian Cyst Nec/Nos (15) Polycystic Ovaries (16) Pure Hypercholesterolem (17) Reflux Esophagitis (18) Removal of ovarian cyst (19) Urin Tract Infection Nos Family History Diabetes mellitus FH: cancer FH: gallbladder disease FH: heart disease FH: lung disease Hypertension Kidney disease Kidney stones Social History Smoking Status: Never Smoker Alcohol Use: none Drug Use: none Marital Status: Housing Status: lives with significant other Occupation Status: employed Current/Historical Medications Scheduled B-Complex Vitamins (B Complex), 1 CAP PO DAILY Control Pills ( Control Pills), 1 TAB PO DAILY Doxepin Hcl (Sinequan), 50 MG PO BID Gabapentin (Neurontin), 100 MG PO TID Hydromorphone Hcl (Dilaudid), 2-4 MG PO PRN UD Metformin Hcl (Glucophage), 1,000 MG PO DAILY Ondasetron Odt (Zofran Odt), 4 MG SL Q6H Propranolol La (Inderal La), 120 MG PO BID Ranitidine (Zantac), 150 MG PO BID Sertraline HCl (Sertraline HCl), 100 MG PO QPM Sumatriptan Succinate (Sumatriptan Succinate), 6 MG SC UD Scheduled PRN Yxxngpd-Pzuaiydplaamq-Yjjgrmru (Excedrin Migraine), 2 TABS PO UD PRN for Headache Clonazepam (Clonazepam), 0.5 MG PO BID PRN for Anxiety Ketorolac Tromethamine (Ketorolac Tromethamine), 30 MG INJ WK PRN for Migraine Meclizine HCl (Meclizine HCl), 25 MG PO TID PRN for Dizziness Ondasetron Odt (Zofran Odt), 4 MG SL Q4H PRN for Nausea Allergies Coded Allergies: Verapamil (Verified Adverse Reaction, Unknown, "Black Out", 08/27/16) Physical Exam Vital Signs Date Time Temp Pulse Resp B/P Pulse Ox O2 Delivery O2 Flow Rate FiO2 10/19/16 16:00 36.9 75 16 151/94 96 Room Air Physical Exam CONSTITUTIONAL: Healthy and well nourished. Alert and oriented X 3 with positive affect. HEENT: Normocephalic, atraumatic. Pupils equal, round and reactive. NECK: Full active range of motion without discomfort. The patient has minimal left lower neck discomfort on exam. Negative lateral gaze test. RESPIRATORY: Clear to auscultation bilaterally with no wheezing, crackles, rhonchi or stridor. CARDIOVASCULAR: Regular rate and rhythm with no murmurs, rubs or gallops. MUSCULOSKELETAL: Full range of motion of all joints without discomfort. Equal hand valve fitter bilaterally. INTEGUMENTARY: No rash or other significant dermatologic conditions noted. NEUROLOGIC: Cranial nerves II-XII grossly intact. No focal neurologic deficits noted. Medical Decision & Procedures ED Course Patient history and physical exam were performed. Nurse's notes were reviewed. Vital signs were reviewed, showing an elevated blood pressure 151/94. The patient was encouraged to follow-up with her PCP for a blood pressure recheck. Review medical records also shows that the patient is on a narcotic restricted treatment plan. This is her first visit of the month. According to her previous treatment plan, she was administered morphine 10 mg and Phenergan 25 mg IM. The patient requested immediate discharge. She was instructed to continue follow-up with Dr. Foley. She may certainly return to the emergency department for further reevaluation for any rebound migraine or other concerns. The patient voiced understanding of all discharge instructions, and rated her pain a 7 out of 10 at the time of discharge. Medical Decision Patient presents with complaint of a migraine headache. She does have a history of chronic migraines, and reports that this feels the same. Based on history and physical exam findings, I do not suspect meningitis, TIA/CVA, thromboembolic process, intracranial bleed, abscess or carbon monoxide poisoning. Impression Primary Impression: Migraine Departure Information Dispostion Home / Self-Care Referrals Patricia Grullon D.O. (PCP) Forms HOME CARE DOCUMENTATION FORM, IMPORTANT VISIT INFORMATION Patient Instructions My [facility] [place] [facility] Additional Instructions Rest and remain well-hydrated. Continue follow-up with Dr. Foley for further migraine management. Problem Qualifiers Primary Impression: Migraine Migraine type: unspecified Status migrainosus presence: without status migrainosus Intractability: not intractable Qualified Codes: G43.909 - Migraine, unspecified, not intractable, without status migrainosus
[2016-10-19] MEDS ORDERED: ONDA4TAB10 SL (16:27)
[2016-12-25] MEDS ORDERED: ZLF/100 PO (13:30)
[2016-12-25] MEDS ORDERED: GABA-112 PO (13:35)
[2016-12-25] MEDS ORDERED: ZNTT/150 PO (13:45)
[2016-12-25] MEDS ORDERED: KETO30IN5 INJ (15:29)
[2016-12-25] MEDS ORDERED: ASPI-390 PO (16:14)
[2016-12-25] MEDS ORDERED: INDSR/120 PO (16:18)
[2016-12-25] MEDS ORDERED: SNQ/50 PO (19:38)
[2016-12-25] MEDS ORDERED: HYDR4TAB2 PO (19:38)
[2016-12-25] MEDS ORDERED: BCPILLS PO (21:01)
[2016-12-25] MEDS ORDERED: SUMA1INJ5 IM (21:06)
[2016-12-25] MEDS ORDERED: ANT25 PO (21:06)
[2016-12-25] MEDS ORDERED: METF-384 PO (21:06)
[2016-12-25] MEDS ORDERED: KLN5X PO (21:12)
[2017-03-22] MEDS ORDERED: BACL10TA PO (13:12)
== END 2016-10-19 16:32 | disposition home or self-care (01) ==
LOC: C.EDB 15:58 → C.EDD 16:32
DX: G43.909 Migraine, unspecified, not intractable, without status migrainosus (principal); J45.909 Unspecified asthma, uncomplicated; I10 Essential (primary) hypertension; E11.9 Type 2 diabetes mellitus without complications; K57.30 Diverticulosis of large intestine without perforation or abscess without bleeding; Z87.442 Personal history of urinary calculi; E66.9 Obesity, unspecified; E78.00 Pure hypercholesterolemia, unspecified; K21.0 Gastro-esophageal reflux disease with esophagitis; Z83.3 Family history of diabetes mellitus; Z80.9 Family history of malignant neoplasm, unspecified; Z83.79 Family history of other diseases of the digestive system; Z82.49 Family history of ischemic heart disease and other diseases of the circulatory system; Z83.6 Family history of other diseases of the respiratory system; Z84.1 Family history of disorders of kidney and ureter; Z79.3 Long term (current) use of hormonal contraceptives; Z79.899 Other long term (current) drug therapy

== ENCOUNTER 2016-11-06 21:40 | Emergency (ER) | payer OTHER ==
[~2016-11-06] VITALS: Ht 167.6 cm; Wt 137.3 kg
[2016-11-06 21:45] VITALS: TEMP 36.6; Ht 167.6 cm; Wt 137.3 kg
[2016-11-06] MEDS ORDERED: PROMETHAZINE HCL INJ 25 MG/ML 1 ML VIAL IM STA (22:06)
[2016-11-06] MEDS ORDERED: MoRPHine SULFATE 10 MG/ML CARP/VIAL IM STA (22:06)
[2016-11-06 22:18] VITALS: BP 176/77; PULSE 73; O2SAT 100
--- NOTE | 2016-11-07 00:19 | EMERGENCY ROOM VISIT NOTE ---
ED Visit Note First contact with patient: 21:58 CHIEF COMPLAINT: Migraine headache HISTORY OF PRESENT ILLNESS: This 30-year-old female patient presented to the emergency department with a gradual onset of a severe generalized headache that started earlier today. The patient states the migraine is similar to their typical migraines. There has been associated photophobia, phonophobia, nausea and vomiting. The patient denies fever or chills recently, and there is no weakness or numbness of the extremities. There is no difficulty with speech or vision. No trauma to the head and no neck pain. The pain is severe, constant, and it is slowly increasing in severity. The patient rates the pain as dull and 8/10. The patient has taken nothing with relief. This is not the worst headache of the life and is similar to previous migraines. Previous imaging studies of the brain have been normal. REVIEW OF SYSTEMS: A review of systems was performed with positives and pertinent negatives listed in the history of present illness. All other systems were reviewed and are negative. ALLERGIES: Verapamil MEDICATIONS: See EMR PMH: Chronic migraines SOCIAL HISTORY: Lives locally PHYSICAL EXAM: Vital Signs: Reviewed Nurse's notes, vital signs stable. GENERAL: White female, who appears in pain, but non toxic in appearance and in no acute distress. MENTAL STATUS: Alert, oriented, and coherent. HEENT: Normocephalic. PERRLA. EOMI. Nares patent without nuchal rigidity. Tympanic membranes pearly sin without erythema or effusion bilaterally. Mucous membranes moist. NECK: Supple, no nuchal rigidity, nontender, no lymphadenopathy. HEART: Regular rhythm and normal rate without murmurs, ectopy, gallops, or rubs. LUNGS: Clear to auscultation bilaterally without wheezes, rales or rhonchi. No dullness to percussion. No accessory muscle use. No retractions. SKIN: Normal. NEUROLOGICAL: Pupils are round, equal and react to light. The optic fundi are normal and the discs are flat. The patient moves all extremities well and the gait is normal. EMERGENCY DEPARTMENT COURSE: I examined the patient. The patient is on a 2 narcotic injection per month treatment plan for their migraines. The patient was given 10 mg IM morphine and 25 mg IM Phenergan per their usual protocol. The differential diagnosis includes acute intracranial bleed, meningitis, encephalitis, mass or mass effect, sinusitis, infection, tumor, headache, temporal arteritis and carbon monoxide exposure, and migraine. The patient was discharged home in stable condition with a male fire control officer driving. Problem List Medical Problems: (1) Asthma, Unspecified Status: Chronic (2) Benign hypertension Status: Chronic (3) Cholecystectomy Status: Resolved (4) Diabetes mellitus Status: Chronic (5) Diverticulosis Colon (W/O Ment Of Hemorrhage) Status: Chronic (6) Kidney stone Status: Resolved (7) Migraine Unspecified W/O Intractable Migraine Status: Chronic (8) Obesity, Nos Status: Chronic (9) Ovarian Cyst Nec/Nos Status: Chronic (10) Polycystic Ovaries Status: Chronic (11) Pure Hypercholesterolem Status: Chronic (12) Reflux Esophagitis Status: Chronic (13) Removal of ovarian cyst Status: Resolved (14) Urin Tract Infection Nos Status: Resolved Current/Historical Medications Scheduled B-Complex Vitamins (B Complex), 1 CAP PO DAILY Control Pills ( Control Pills), 1 TAB PO DAILY Doxepin Hcl (Sinequan), 50 MG PO BID Gabapentin (Neurontin), 100 MG PO TID Hydromorphone Hcl (Dilaudid), 2-4 MG PO PRN UD Metformin Hcl (Glucophage), 1,000 MG PO DAILY Ondasetron Odt (Zofran Odt), 4 MG SL Q6H Propranolol La (Inderal La), 120 MG PO BID Ranitidine (Zantac), 150 MG PO BID Sertraline HCl (Sertraline HCl), 100 MG PO QPM Sumatriptan Succinate (Sumatriptan Succinate), 6 MG SC UD Scheduled PRN Ryanxia-Xiejpvyftzbrw-Iantnhjh (Excedrin Migraine), 2 TABS PO UD PRN for Headache Clonazepam (Clonazepam), 0.5 MG PO BID PRN for Anxiety Ketorolac Tromethamine (Ketorolac Tromethamine), 30 MG INJ WK PRN for Migraine Meclizine HCl (Meclizine HCl), 25 MG PO TID PRN for Dizziness Allergies Coded Allergies: Verapamil (Verified Adverse Reaction, Unknown, "Black Out", 08/27/16) Vital Signs Date Time Temp Pulse Resp B/P Pulse Ox O2 Delivery O2 Flow Rate FiO2 11/06/16 22:18 73 176/77 100 Room Air 11/06/16 21:45 36.6 79 16 153/97 97 Room Air Medications Administered Medications (Trade) Dose Ordered Sig/Bharat Route Start Time Stop Time Status Last Admin Dose Admin Morphine Sulfate (MoRPHine SULFATE INJ) 10 mg NOW STAT IM 11/06/16 22:06 11/06/16 22:08 DC 11/06/16 22:16 10 MG Promethazine HCl (Phenergan Inj) 25 mg NOW STAT IM 11/06/16 22:06 11/06/16 22:08 DC 11/06/16 22:16 25 MG Departure Information Impression Primary Impression: Migraine Dispostion Home / Self-Care Condition GOOD Referrals Patricia Grullon D.O. (PCP) Forms HOME CARE DOCUMENTATION FORM, IMPORTANT VISIT INFORMATION Patient Instructions My [facility] Additional Instructions You were seen and evaluated today on an emergency basis only. This is not a substitute for, or an effort to provide, complete comprehensive medical care. It is not possible to recognize and treat all injuries or illnesses in a single emergency department visit. For this reason it is recommended that you followup with your primary care physician or neurologist this week for ongoing care and evaluation. DO NOT drive, drink alcohol, operate machinery, or perform dangerous activities today. You were given medications in the ER that can affect your ability to safely function or operate a vehicle. Rest today in a quiet, peaceful, dark environment and get a full 8-10 hrs of sleep tonight. Avoid loud noises, smoke/smoking, alcohol, bright lights, stress, or physical exertion today to minimize the chance the headache may return. Continue current medications. Ibuprofen(Motrin, Advil) may be used for fever or pain. Use 600mg every six hours as needed. Take with food. Avoid using more than 2400mg in a 24 hour period. Do not use 2400mg per day for more than three consecutive days without physician direction. Prolonged inappropriate use can lead to stomach upset or ulcers. (AND/OR) Acetaminophen(Tylenol) may be used for fever or pain. Use 1000mg every six hours as needed. Avoid using more than 4000mg in a 24 hour period. Return to the ER for passing out, worsening headache, vision problems, neck stiffness/pain, fevers, vomiting, worsening of your condition, or as needed.
[2016-12-25] MEDS ORDERED: ZLF/100 PO (13:30)
[2016-12-25] MEDS ORDERED: GABA-112 PO (13:35)
[2016-12-25] MEDS ORDERED: ZNTT/150 PO (13:45)
[2016-12-25] MEDS ORDERED: KETO30IN5 INJ (15:29)
[2016-12-25] MEDS ORDERED: ASPI-390 PO (16:14)
[2016-12-25] MEDS ORDERED: INDSR/120 PO (16:18)
[2016-12-25] MEDS ORDERED: SNQ/50 PO (19:38)
[2016-12-25] MEDS ORDERED: HYDR4TAB2 PO (19:38)
[2016-12-25] MEDS ORDERED: BCPILLS PO (21:01)
[2016-12-25] MEDS ORDERED: METF-384 PO (21:06)
[2016-12-25] MEDS ORDERED: ANT25 PO (21:06)
[2016-12-25] MEDS ORDERED: SUMA1INJ5 IM (21:06)
[2016-12-25] MEDS ORDERED: KLN5X PO (21:12)
[2017-03-22] MEDS ORDERED: BACL10TA PO (13:12)
== END 2016-11-06 22:22 | disposition home or self-care (01) ==
LOC: C.EDB 21:41 → C.EDD 22:22
DX: G43.909 Migraine, unspecified, not intractable, without status migrainosus (principal); J45.909 Unspecified asthma, uncomplicated; I10 Essential (primary) hypertension; E11.9 Type 2 diabetes mellitus without complications; K57.90 Diverticulosis of intestine, part unspecified, without perforation or abscess without bleeding; E66.9 Obesity, unspecified; K21.9 Gastro-esophageal reflux disease without esophagitis

== ENCOUNTER 2016-11-18 17:42 | Emergency (ER) | payer OTHER ==
[~2016-11-18] VITALS: Ht 167.6 cm; Wt 137.9 kg
[2016-11-18 17:46] VITALS: TEMP 36.7; Ht 167.6 cm; Wt 137.9 kg
[2016-11-18] MEDS ORDERED: PROMETHAZINE HCL INJ 25 MG/ML 1 ML VIAL IM STA (18:27)
[2016-11-18] MEDS ORDERED: MoRPHine SULFATE 10 MG/ML CARP/VIAL IM STA (18:27)
--- NOTE | 2016-11-18 18:30 | EMERGENCY ROOM VISIT NOTE ---
ED Visit Note First contact with patient: 18:18 CHIEF COMPLAINT: Migraine headache HISTORY OF PRESENT ILLNESS: This 30 year old female patient presented to the emergency department with a gradual onset of a severe generalized headache that started yesterday. There has been associated photophobia, phonophobia, nausea and vomiting. The patient denies fever or chills recently, and there is no weakness or numbness of the extremities. There is no difficulty with speech or vision. No trauma to the head and no neck pain. The pain is severe, constant, and it is slowly increasing in severity. The patient rates the pain as sharp and 8/10. The patient has taken her usual medications. This is not the worst headache of the life and is similar to previous migraines. Previous imaging studies of the brain (CT scans) have been normal. REVIEW OF SYSTEMS: An 8 system review of systems was completed with positives and pertinent negatives listed in the HPI. ALLERGIES: Verapamil MEDICATIONS: See nursing notes PMH: Migraines SOCIAL HISTORY: The patient lives locally with family PHYSICAL EXAM: Vital Signs: Reviewed Nurse's notes, vital signs stable. MENTAL STATUS: Alert, oriented, and coherent. In great distress from the headache. NECK : Supple, no nuchal rigidity, nontender, no lymphadenopathy. HEART: Regular rhythm and normal rate without murmurs, ectopy, gallops, or rubs. SKIN: Normal. NEUROLOGICAL: Pupils are round, equal and react to light. The optic fundi are normal and the discs are flat. EOMs are full and there is no nystagmus. The patient moves all extremities well and the gait is normal. EMERGENCY DEPARTMENT COURSE: I examined the patient. The patient is well-known to this emergency department. She is on a 2 shot per month treatment protocol. She states this headache is typical. She does not have any fevers, nuchal rigidity to suggest meningitis. The patient was given 10 mg IM morphine and 25 mg IM Phenergan with relief of their pain. The differential diagnosis includes acute intracranial bleed, meningitis, encephalitis, mass or mass effect, sinusitis, infection, tumor, headache, temporal arteritis and carbon monoxide exposure, and migraine. The patient was discharged home in stable condition with her significant other driving. DIAGNOSIS: Migraine headache DISCHARGE INSTRUCTIONS & TREATMENT: Rest at home, resume prescription medications. See your own doctor in follow-up. Problem List Medical Problems: (1) Asthma, Unspecified Status: Chronic (2) Benign hypertension Status: Chronic (3) Cholecystectomy Status: Resolved (4) Diabetes mellitus Status: Chronic (5) Diverticulosis Colon (W/O Ment Of Hemorrhage) Status: Chronic (6) Kidney stone Status: Resolved (7) Migraine Unspecified W/O Intractable Migraine Status: Chronic (8) Obesity, Nos Status: Chronic (9) Ovarian Cyst Nec/Nos Status: Chronic (10) Polycystic Ovaries Status: Chronic (11) Pure Hypercholesterolem Status: Chronic (12) Reflux Esophagitis Status: Chronic (13) Removal of ovarian cyst Status: Resolved (14) Urin Tract Infection Nos Status: Resolved Current/Historical Medications Scheduled B-Complex Vitamins (B Complex), 1 CAP PO DAILY Control Pills ( Control Pills), 1 TAB PO DAILY Doxepin Hcl (Sinequan), 50 MG PO BID Gabapentin (Neurontin), 100 MG PO TID Hydromorphone Hcl (Dilaudid), 2-4 MG PO PRN UD Metformin Hcl (Glucophage), 1,000 MG PO DAILY Ondasetron Odt (Zofran Odt), 4 MG SL Q6H Propranolol La (Inderal La), 120 MG PO BID Ranitidine (Zantac), 150 MG PO BID Sertraline HCl (Sertraline HCl), 100 MG PO QPM Sumatriptan Succinate (Sumatriptan Succinate), 6 MG SC UD Scheduled PRN Ipjcgoq-Nkcdzgcjrpexi-Fxnnmdku (Excedrin Migraine), 2 TABS PO UD PRN for Headache Clonazepam (Clonazepam), 0.5 MG PO BID PRN for Anxiety Ketorolac Tromethamine (Ketorolac Tromethamine), 30 MG INJ WK PRN for Migraine Meclizine HCl (Meclizine HCl), 25 MG PO TID PRN for Dizziness Allergies Coded Allergies: Verapamil (Verified Adverse Reaction, Unknown, "Black Out", 11/18/16) Vital Signs Date Time Temp Pulse Resp B/P (MAP) Pulse Ox O2 Delivery O2 Flow Rate FiO2 11/18/16 19:04 90 18 150/98 97 11/18/16 17:46 36.7 85 18 155/99 97 Room Air Medications Administered Medications (Trade) Dose Ordered Sig/Bharat Route Start Time Stop Time Status Last Admin Dose Admin Morphine Sulfate (MoRPHine SULFATE INJ) 10 mg NOW STAT IM 11/18/16 18:27 11/18/16 18:28 DC 11/18/16 18:42 10 MG Promethazine HCl (Phenergan Inj) 25 mg NOW STAT IM 11/18/16 18:27 11/18/16 18:28 DC 11/18/16 18:42 25 MG Departure Information Impression Primary Impression: Headache Dispostion Home / Self-Care Condition GOOD Referrals Patricia Grullon D.O. (PCP) Patient Instructions My [facility] Additional Instructions Rest at home, resume prescription medications. See your own doctor in follow-up.
[2016-11-18 19:04] VITALS: BP 150/98; PULSE 90; O2SAT 97
[2016-12-25] MEDS ORDERED: ZLF/100 PO (13:30)
[2016-12-25] MEDS ORDERED: GABA-112 PO (13:35)
[2016-12-25] MEDS ORDERED: ZNTT/150 PO (13:45)
[2016-12-25] MEDS ORDERED: KETO30IN5 INJ (15:29)
[2016-12-25] MEDS ORDERED: ASPI-390 PO (16:14)
[2016-12-25] MEDS ORDERED: INDSR/120 PO (16:18)
[2016-12-25] MEDS ORDERED: SNQ/50 PO (19:38)
[2016-12-25] MEDS ORDERED: HYDR4TAB2 PO (19:38)
[2016-12-25] MEDS ORDERED: BCPILLS PO (21:01)
[2016-12-25] MEDS ORDERED: ANT25 PO (21:06)
[2016-12-25] MEDS ORDERED: METF-384 PO (21:06)
[2016-12-25] MEDS ORDERED: SUMA1INJ5 IM (21:06)
[2016-12-25] MEDS ORDERED: KLN5X PO (21:12)
[2017-03-22] MEDS ORDERED: BACL10TA PO (13:12)
== END 2016-11-18 19:05 | disposition home or self-care (01) ==
LOC: C.EDB 17:43 → C.EDD 19:05
DX: G43.909 Migraine, unspecified, not intractable, without status migrainosus (principal); I10 Essential (primary) hypertension; E11.9 Type 2 diabetes mellitus without complications; J45.909 Unspecified asthma, uncomplicated; Z79.3 Long term (current) use of hormonal contraceptives; Z79.84 Long term (current) use of oral hypoglycemic drugs; Z79.899 Other long term (current) drug therapy; Z87.19 Personal history of other diseases of the digestive system; Z87.42 Personal history of other diseases of the female genital tract; Z87.440 Personal history of urinary (tract) infections; Z87.442 Personal history of urinary calculi

== ENCOUNTER 2016-11-20 10:02 | Emergency (ER) | payer OTHER ==
[~2016-11-20] VITALS: Ht 167.6 cm; Wt 139.0 kg
[2016-11-20 10:22] VITALS: TEMP 36.8; Ht 167.6 cm; Wt 139.0 kg
[2016-11-20] MEDS ORDERED: HYDROCODONE/ACETAMOPHEN 5/325MG TAB PO STA (11:05)
[2016-11-20] MEDS ORDERED: KETOROLAC TROMETHAMINE 60 MG/2 ML VIAL IM STA (11:05)
--- NOTE | 2016-11-20 11:48 | DIAGNOSTIC IMAGING REPORT ---
C-SPINE ROUTINE 4 OR 5 VIEWS CLINICAL HISTORY: Fall/neck pain/attention C7. COMPARISON STUDY: CT of the cervical spine April 03, 2015. FINDINGS: Alignment of the cervical spine is anatomic. There is no acute fracture. Mild anterior osteophytosis is noted at the C5-C6 and C6-C7 levels. Prevertebral soft tissues are unremarkable. Visualization of the cervical spine is adequate. IMPRESSION: No acute cervical spine fracture or subluxation. Electronically signed by: Ady Mccracken M.D. 11/20/2016 11:47 AM Dictated Date/Time: 11/20/2016 11:45 AM
--- NOTE | 2016-11-20 11:52 | DIAGNOSTIC IMAGING REPORT ---
THORACIC SPINE 3 VIEWS ROUTINE CLINICAL HISTORY: Fall/upper back pain. COMPARISON STUDY: Chest CT July 26, 2016. FINDINGS: Alignment of the thoracic spine is anatomic. There is no acute fracture. Vertebral body heights are maintained. There is minimal endplate osteophytosis at several levels. IMPRESSION: No acute thoracic spine fracture or subluxation. Electronically signed by: Ady Mccracken M.D. 11/20/2016 11:51 AM Dictated Date/Time: 11/20/2016 11:47 AM
[2016-11-20] MEDS ORDERED: HYDR-5688 PO (12:20)
--- NOTE | 2016-11-20 12:21 | EMERGENCY ROOM VISIT NOTE ---
History First contact with patient: 10:53 Chief Complaint: FALL Stated Complaint: FELL-HIT UPPER SHOULDERS, NECK AND BACK OF HEAD History of Present Illness The patient is a 30 year old female who presents to the Emergency Room with complaints of falling injuring her upper back and lower neck. The patient states just prior to arrival she was going down steps which were concrete. When she got to the bottom she accidentally stepped on a hose which were old and she fell backwards striking her shoulders and upper back on the edge of the concrete step. The patient thinks she might hit the back of her head but denies any significant headache, loss of consciousness, dizziness, visual changes or nausea. The patient has a history of migraine headaches as well as arthritis and disc disease in her cervical spine. The patient denies any numbness and tingling into her fingers or any weakness in her upper extremities. Review of Systems 10 system review was performed and was negative unless stated otherwise history of present illness. Past Medical/Surgical History Medical Problems: (1) 38 to 41 weeks gestation of (2) Asthma, Unspecified (3) Benign hypertension (4) Cephalopelvic disproportion (5) Cholecystectomy (6) Diabetes mellitus (7) Diverticulosis Colon (W/O Ment Of Hemorrhage) (8) Headache in (9) intrauterine 25 weeks 3 days (10) Irregular contractions (11) Kidney stone (12) Migraine Unspecified W/O Intractable Migraine (13) Obesity, Nos (14) Ovarian Cyst Nec/Nos (15) Polycystic Ovaries (16) Pure Hypercholesterolem (17) Reflux Esophagitis (18) Removal of ovarian cyst (19) Urin Tract Infection Nos Family History Diabetes mellitus FH: cancer FH: gallbladder disease FH: heart disease FH: lung disease Hypertension Kidney disease Kidney stones Social History Smoking Status: Former Smoker Alcohol Use: none Drug Use: none Marital Status: Housing Status: lives with significant other Occupation Status: employed Current/Historical Medications Scheduled B-Complex Vitamins (B Complex), 1 CAP PO DAILY Control Pills ( Control Pills), 1 TAB PO DAILY Doxepin Hcl (Sinequan), 50 MG PO BID Gabapentin (Neurontin), 100 MG PO TID Hydromorphone Hcl (Dilaudid), 2-4 MG PO PRN UD Metformin Hcl (Glucophage), 1,000 MG PO DAILY Ondasetron Odt (Zofran Odt), 4 MG SL Q6H Propranolol La (Inderal La), 120 MG PO BID Ranitidine (Zantac), 150 MG PO BID Sertraline HCl (Sertraline HCl), 100 MG PO QPM Sumatriptan Succinate (Sumatriptan Succinate), 6 MG SC UD Scheduled PRN Sfmmjey-Ofdybzpostghj-Qxdvwsbl (Excedrin Migraine), 2 TABS PO UD PRN for Headache Clonazepam (Clonazepam), 0.5 MG PO BID PRN for Anxiety Ketorolac Tromethamine (Ketorolac Tromethamine), 30 MG INJ WK PRN for Migraine Meclizine HCl (Meclizine HCl), 25 MG PO TID PRN for Dizziness Allergies Coded Allergies: Verapamil (Verified Adverse Reaction, Unknown, "Black Out", 11/20/16) Physical Exam Vital Signs Date Time Temp Pulse Resp B/P (MAP) Pulse Ox O2 Delivery O2 Flow Rate FiO2 11/20/16 10:22 36.8 78 18 151/101 98 Room Air Physical Exam GENERAL: 30-year-old white female appears in no acute distress. MENTAL Status: Alert and oriented 3. EYES: PERRLA. EOMs intact. EARS: Canals clear. TMs without hemotympanum. HEAD: Atraumatic, nontender to palpation throughout. NECK: Supple, no lymphadenopathy noted. No carotid bruits noted. LUNGS: Clear auscultation without wheezes rales or rhonchi. CARDIAC: Regular rate and rhythm without murmur.. Pulses is full and equal throughout. CERVICAL SPINE: No gross bony deformity noted. The patient only has slight tenderness to palpation over the C7 process otherwise patient is nontender to palpation. Paravertebral regions without tenderness. THORACIC SPINE: No gross bony deformity noted. The patient has mild tenderness palpation over the upper spinous processes in the paravertebral regions in the upper thoracic. The patient smokes strength is 5 out of 5 bilateral upper extremities and symmetrical. NEURO:Cranial nerves two through 12 intact. Cerebellar function intact with [id number]. Fine motor intact with alternating finger motions. Medical Decision & Procedures ER Provider Diagnostic Interpretation: C-SPINE ROUTINE 4 OR 5 VIEWS CLINICAL HISTORY: Fall/neck pain/attention C7. COMPARISON STUDY: CT of the cervical spine April 03, 2015. FINDINGS: Alignment of the cervical spine is anatomic. There is no acute fracture. Mild anterior osteophytosis is noted at the C5-C6 and C6-C7 levels. Prevertebral soft tissues are unremarkable. Visualization of the cervical spine is adequate. IMPRESSION: No acute cervical spine fracture or subluxation. Electronically signed by: Ady Mccracken M.D. 11/20/2016 11:47 AM Dictated Date/Time: 11/20/2016 11:45 AM THORACIC SPINE 3 VIEWS ROUTINE CLINICAL HISTORY: Fall/upper back pain. COMPARISON STUDY: Chest CT July 26, 2016. FINDINGS: Alignment of the thoracic spine is anatomic. There is no acute fracture. Vertebral body heights are maintained. There is minimal endplate osteophytosis at several levels. IMPRESSION: No acute thoracic spine fracture or subluxation. Electronically signed by: Ady Mccracken M.D. 11/20/2016 11:51 AM Dictated Date/Time: 11/20/2016 11:47 AM Medications Administered Medications (Trade) Dose Ordered Sig/Bharat Route Start Time Stop Time Status Last Admin Dose Admin Ketorolac Tromethamine (Toradol Inj) 60 mg NOW STAT IM 11/20/16 11:05 11/20/16 11:08 DC 11/20/16 11:16 60 MG Acetaminophen/ Hydrocodone Bitart ([place] 5/325 Tab) 2 tab NOW STAT PO 11/20/16 11:05 11/20/16 11:08 DC 11/20/16 11:16 2 TAB ED Course The patient was evaluated. The patient was given Toradol 60 mg IM, [place] 5/325 mg 2 tabs by mouth for pain. X-rays of the cervical and thoracic spine were ordered and interpreted by the radiologist and myself as above without any acute findings. The patient was reevaluated and was feeling better. The patient was discharged home in stable condition with a family member driving.. Medical Decision Differential diagnosis include fractures versus contusion. Impression Primary Impression: Fall Additional Impression: Contusion of thorax Departure Information Dispostion Home / Self-Care Condition GOOD Prescriptions Hydrocodone/Acetaminophen 5MG/325MG ([place] 5MG/325MG) Tab 1-2 TABLET PO Q6 Y for Pain, #20 TAB For Initial Treatment Prov: Lora Vera PA-C 11/20/16 Referrals Patricia Grullon D.O. (PCP) Forms HOME CARE DOCUMENTATION FORM, IMPORTANT VISIT INFORMATION Patient Instructions [facility] Additional Instructions Ice intermittently to affected area over the next 24-48 hours. Then may switch to moist heat. Take [place] as needed for pain. Do not drive while taking the [place]. If symptoms are not improving in 2-3 days recommend follow-up with your family physician. Work Instructions Return To Work: 1 day Problem Qualifiers
[2016-11-20 12:32] VITALS: BP 138/95; PULSE 72; O2SAT 98
[2016-12-25] MEDS ORDERED: ZLF/100 PO (13:30)
[2016-12-25] MEDS ORDERED: GABA-112 PO (13:35)
[2016-12-25] MEDS ORDERED: ZNTT/150 PO (13:45)
[2016-12-25] MEDS ORDERED: KETO30IN5 INJ (15:29)
[2016-12-25] MEDS ORDERED: ASPI-390 PO (16:14)
[2016-12-25] MEDS ORDERED: INDSR/120 PO (16:18)
[2016-12-25] MEDS ORDERED: SNQ/50 PO (19:38)
[2016-12-25] MEDS ORDERED: HYDR4TAB2 PO (19:38)
[2016-12-25] MEDS ORDERED: BCPILLS PO (21:01)
[2016-12-25] MEDS ORDERED: METF-384 PO (21:06)
[2016-12-25] MEDS ORDERED: ANT25 PO (21:06)
[2016-12-25] MEDS ORDERED: SUMA1INJ5 IM (21:06)
[2016-12-25] MEDS ORDERED: KLN5X PO (21:12)
[2017-03-22] MEDS ORDERED: BACL10TA PO (13:12)
== END 2016-11-20 12:35 | disposition home or self-care (01) ==
LOC: C.EDB 10:03 → C.EDD 12:35
DX: S20.20XA Contusion of thorax, unspecified, initial encounter (principal); W19.XXXA Unspecified fall, initial encounter; J45.909 Unspecified asthma, uncomplicated; I10 Essential (primary) hypertension; E11.9 Type 2 diabetes mellitus without complications; K57.90 Diverticulosis of intestine, part unspecified, without perforation or abscess without bleeding; E66.9 Obesity, unspecified; E28.2 Polycystic ovarian syndrome; E78.00 Pure hypercholesterolemia, unspecified; Z83.3 Family history of diabetes mellitus; Z82.49 Family history of ischemic heart disease and other diseases of the circulatory system; Z87.891 Personal history of nicotine dependence

== ENCOUNTER 2016-12-02 01:44 | Emergency (ER) | payer OTHER ==
[~2016-12-02] VITALS: Ht 167.6 cm; Wt 137.7 kg
[~2016-12-02 01:44] MED LIST changes: +HYDR-5688 PO
[2016-12-02 01:49] VITALS: TEMP 36.7; Ht 167.6 cm; Wt 137.7 kg
[2016-12-02] MEDS ORDERED: MoRPHine SULFATE 10 MG/ML CARP/VIAL IM STA (02:05)
[2016-12-02] MEDS ORDERED: PROMETHAZINE HCL INJ 25 MG/ML 1 ML VIAL IM STA (02:05)
--- NOTE | 2016-12-02 02:13 | EMERGENCY ROOM VISIT NOTE ---
History First contact with patient: :52 Chief Complaint: HEADACHE Stated Complaint: MIGRAINE,DIZZY,UPSET STOMACH,NECK PAIN History of Present Illness The patient is a 31 year old female who presents to the Emergency Room with complaints of a migraine headache which began earlier yesterday afternoon. The patient reports that her neck "popped" and this triggered a migraine. She has a history of migraine headaches and states this feels similar to previous. She states that she has had issues with her neck for the past few months and has seen Dr. Foley for this. She has an appointment with him tomorrow. She reports nausea, but no vomiting. She reports pain that radiates from her shoulders up into her head, which is typical of her headaches. She denies any recent illnesses, fevers/chills, numbness or weakness. She rates her discomfort an 8/ 10. She states that she took naproxen, Excedrin migraine and Toradol at home without relief. Previous MRIs of the brain have been normal. Review of Systems A complete 10 point review of systems was reviewed with the patient with pertinent positives and negatives as per history of present illness. All else were negative. Past Medical/Surgical History Medical Problems: (1) 38 to 41 weeks gestation of (2) Asthma, Unspecified (3) Benign hypertension (4) Cephalopelvic disproportion (5) Cholecystectomy (6) Diabetes mellitus (7) Diverticulosis Colon (W/O Ment Of Hemorrhage) (8) Headache in (9) intrauterine 25 weeks 3 days (10) Irregular contractions (11) Kidney stone (12) Migraine Unspecified W/O Intractable Migraine (13) Obesity, Nos (14) Ovarian Cyst Nec/Nos (15) Polycystic Ovaries (16) Pure Hypercholesterolem (17) Reflux Esophagitis (18) Removal of ovarian cyst (19) Urin Tract Infection Nos Family History Diabetes mellitus FH: cancer FH: gallbladder disease FH: heart disease FH: lung disease Hypertension Kidney disease Kidney stones Social History Smoking Status: Never Smoker Alcohol Use: none Drug Use: none Marital Status: Housing Status: lives with significant other Occupation Status: employed Current/Historical Medications Scheduled B-Complex Vitamins (B Complex), 1 CAP PO DAILY Control Pills ( Control Pills), 1 TAB PO DAILY Doxepin Hcl (Sinequan), 50 MG PO BID Gabapentin (Neurontin), 100 MG PO TID Hydromorphone Hcl (Dilaudid), 2-4 MG PO PRN UD Metformin Hcl (Glucophage), 1,000 MG PO DAILY Ondasetron Odt (Zofran Odt), 4 MG SL Q6H Propranolol La (Inderal La), 120 MG PO BID Ranitidine (Zantac), 150 MG PO BID Sertraline HCl (Sertraline HCl), 100 MG PO QPM Sumatriptan Succinate (Sumatriptan Succinate), 6 MG SC UD Scheduled PRN Idqnewc-Eqsbiktvhtvwx-Uvaauiaq (Excedrin Migraine), 2 TABS PO UD PRN for Headache Clonazepam (Clonazepam), 0.5 MG PO BID PRN for Anxiety Hydrocodone/Acetaminophen 5MG/325MG ([place] 5MG/325MG), 1-2 TABLET PO Q6 PRN for Pain Ketorolac Tromethamine (Ketorolac Tromethamine), 30 MG INJ WK PRN for Migraine Meclizine HCl (Meclizine HCl), 25 MG PO TID PRN for Dizziness Allergies Coded Allergies: Verapamil (Verified Adverse Reaction, Unknown, "Black Out", 12/02/16) Physical Exam Vital Signs Date Time Temp Pulse Resp B/P (MAP) Pulse Ox O2 Delivery O2 Flow Rate FiO2 12/02/16 03:01 77 18 127/68 98 12/02/16 01:49 36.7 83 16 162/107 97 Room Air Physical Exam VITALS: Vitals are noted on the nurse's note and reviewed by myself. Vital signs stable. GENERAL: This is a 31-year-old female, in no acute distress, nondiaphoretic, well-developed well-nourished. HEAD: Normocephalic atraumatic. EARS: External auditory canals clear, tympanic membranes pearly sin without erythema or effusion bilaterally. EYES: Pupils equal round and reactive to light and accommodation. Conjunctivae without injection, sclerae without icterus. Extraocular movements intact. MOUTH: Mucous membranes moist. Tonsils are not enlarged. Pharynx without erythema or exudate. NECK: Supple without nuchal rigidity. No meningismus. HEART: Regular rate and rhythm without murmurs gallops or rubs. LUNGS: Clear to auscultation bilaterally without wheezes, rales or rhonchi. MUSCULOSKELETAL: Strength 5/5 throughout. NEURO: Patient was alert and oriented to person place and time. Normal sensation to light and sharp touch. No focal neurological deficits. Medical Decision & Procedures Medications Administered Medications (Trade) Dose Ordered Sig/Bharat Route Start Time Stop Time Status Last Admin Dose Admin Morphine Sulfate (MoRPHine SULFATE INJ) 10 mg NOW STAT IM 12/02/16 02:05 12/02/16 02:06 DC 12/02/16 02:27 10 MG Promethazine HCl (Phenergan Inj) 25 mg NOW STAT IM 12/02/16 02:05 12/02/16 02:06 DC 12/02/16 02:26 25 MG ED Course The patient was evaluated as above. Labs were drawn and IV access was obtained. Patient was medicated with 10 mg morphine and 25 mg Phenergan IM. Patient was reevaluated and had improvement. Discharge instructions were reviewed with the patient. The patient verbalized understanding of my assessment and treatment plan and was discharged home in good condition. Medical Decision The differential diagnosis includes acute intracranial bleed, meningitis, encephalitis, mass or mass effect, sinusitis, infection, tumor, headache, temporal arteritis and carbon monoxide exposure, and migraine. The patient was evaluated as above. She presents with her typical migraine headache. There is no meningismus on exam. She is afebrile. She is on a 2 narcotic injection per month treatment plan. She was given 10 mg morphine IM and 25 milligrams Phenergan IM per her usual protocol with relief of her migraine headache. She has follow-up with her neurologist tomorrow. She was discharged home in good condition. Medication reconciliation: I attest that I have personally reviewed the patient 's current medication list. Blood pressure screening: Patient was found to have an elevated blood pressure and was referred to their primary care provider for recheck and further treatment. Impression Primary Impression: Migraine Departure Information Dispostion Home / Self-Care Condition GOOD Referrals No Doctor, Assigned (PCP) Patient Instructions My [facility] Problem Qualifiers Primary Impression: Migraine Migraine type: unspecified Status migrainosus presence: without status migrainosus Intractability: not intractable Qualified Codes: G43.909 - Migraine, unspecified, not intractable, without status migrainosus
[2016-12-02 03:01] VITALS: BP 127/68; PULSE 77; O2SAT 98
[2016-12-25] MEDS ORDERED: ZLF/100 PO (13:30)
[2016-12-25] MEDS ORDERED: GABA-112 PO (13:35)
[2016-12-25] MEDS ORDERED: ZNTT/150 PO (13:45)
[2016-12-25] MEDS ORDERED: KETO30IN5 INJ (15:29)
[2016-12-25] MEDS ORDERED: ASPI-390 PO (16:14)
[2016-12-25] MEDS ORDERED: INDSR/120 PO (16:18)
[2016-12-25] MEDS ORDERED: SNQ/50 PO (19:38)
[2016-12-25] MEDS ORDERED: HYDR4TAB2 PO (19:38)
[2016-12-25] MEDS ORDERED: BCPILLS PO (21:01)
[2016-12-25] MEDS ORDERED: METF-384 PO (21:06)
[2016-12-25] MEDS ORDERED: SUMA1INJ5 IM (21:06)
[2016-12-25] MEDS ORDERED: ANT25 PO (21:06)
[2016-12-25] MEDS ORDERED: KLN5X PO (21:12)
[2017-03-22] MEDS ORDERED: BACL10TA PO (13:12)
== END 2016-12-02 02:58 | disposition home or self-care (01) ==
LOC: C.EDB 01:45
DX: G43.909 Migraine, unspecified, not intractable, without status migrainosus (principal); J45.909 Unspecified asthma, uncomplicated; I10 Essential (primary) hypertension; Z90.49 Acquired absence of other specified parts of digestive tract; E11.9 Type 2 diabetes mellitus without complications; Z87.442 Personal history of urinary calculi; K21.9 Gastro-esophageal reflux disease without esophagitis; E78.00 Pure hypercholesterolemia, unspecified; E66.9 Obesity, unspecified; Z68.42 Body mass index [BMI] 45.0-49.9, adult; Z87.440 Personal history of urinary (tract) infections; Z83.3 Family history of diabetes mellitus; Z80.9 Family history of malignant neoplasm, unspecified; Z82.49 Family history of ischemic heart disease and other diseases of the circulatory system; Z84.1 Family history of disorders of kidney and ureter; Z79.3 Long term (current) use of hormonal contraceptives; Z79.899 Other long term (current) drug therapy

== ENCOUNTER 2016-12-15 13:44 | Emergency (ER) | payer OTHER ==
[~2016-12-15] VITALS: Ht 167.6 cm; Wt 140.7 kg
[2016-12-15 13:53] VITALS: BP 145/101; PULSE 82; TEMP 36.9; O2SAT 97; Ht 167.6 cm; Wt 140.7 kg
[2016-12-15] MEDS ORDERED: MoRPHine SULFATE 10 MG/ML CARP/VIAL IM STA (14:05)
[2016-12-15] MEDS ORDERED: PROMETHAZINE HCL INJ 25 MG/ML 1 ML VIAL IM STA (14:05)
--- NOTE | 2016-12-15 14:14 | EMERGENCY ROOM VISIT NOTE ---
ED Visit Note First contact with patient: 14:02 CHIEF COMPLAINT: Migraine headache HISTORY OF PRESENT ILLNESS: This 31-year-old female patient presented to the emergency department via private vehicle with a gradual onset of a severe generalized headache that started last night. The patient states the migraine is similar to their typical migraines. There has been associated photophobia, phonophobia, nausea but no. The patient denies fever or chills recently, and there is no weakness or numbness of the extremities. There is no difficulty with speech or vision. No trauma to the head and no neck pain. The pain is severe, constant, and it is slowly increasing in severity. The patient rates the pain as constant and 9/10. The patient has taken Excedrin Migraine and Toradol without relief. This is not the worst headache of the life and is similar to previous migraines. Previous imaging studies of the brain have been normal. REVIEW OF SYSTEMS: A review of systems was performed with positives and pertinent negatives listed in the history of present illness. All other systems were reviewed and are negative. ALLERGIES: Verapamil MEDICATIONS: As noted below PMH: Migraine headaches SOCIAL HISTORY: Patient lives locally with family PHYSICAL EXAM: Vital Signs: Reviewed Nurse's notes, vital signs stable. GENERAL : 31-year-old female, who appears in pain, but non toxic in appearance and in no acute distress. MENTAL STATUS: Alert, oriented, and coherent. HEENT: Normocephalic. PERRLA. EOMI. Nares patent without nuchal rigidity. Tympanic membranes pearly sin without erythema or effusion bilaterally. Mucous membranes moist. NECK: Supple, no nuchal rigidity, nontender, no lymphadenopathy. HEART: Regular rhythm and normal rate without murmurs, ectopy, gallops, or rubs. LUNGS: Clear to auscultation bilaterally without wheezes, rales or rhonchi. No accessory muscle use. No retractions. SKIN: Normal. NEUROLOGICAL: Pupils are round, equal and react to light. The patient moves all extremities well and the gait is normal. EMERGENCY DEPARTMENT COURSE: I examined the patient. The patient is on a 2 narcotic injection per month treatment plan for their migraines. The patient was given 10 mg of morphine, and 25 mg of Phenergan both intramuscularly per their usual protocol. The differential diagnosis includes acute intracranial bleed, meningitis, encephalitis, mass or mass effect, sinusitis, infection, tumor, headache, temporal arteritis and carbon monoxide exposure, and migraine. The patient was discharged home in stable condition with male driving. In the evaluation and treatment of this patient, the following differential diagnoses were considered: Migraine Headache, Intracranial Hemorrhage, Subdural Hematoma, Subarachnoid Hemorrhage, Cerebral Aneurysm, Temporal/Giant Cell Arteritis, Tension Headache, Meningitis, Encephalitis, or Hydrocephalus. Problem List Medical Problems: (1) Asthma, Unspecified Status: Chronic (2) Benign hypertension Status: Chronic (3) Cholecystectomy Status: Resolved (4) Diabetes mellitus Status: Chronic (5) Diverticulosis Colon (W/O Ment Of Hemorrhage) Status: Chronic (6) Kidney stone Status: Resolved (7) Migraine Unspecified W/O Intractable Migraine Status: Chronic (8) Obesity, Nos Status: Chronic (9) Ovarian Cyst Nec/Nos Status: Chronic (10) Polycystic Ovaries Status: Chronic (11) Pure Hypercholesterolem Status: Chronic (12) Reflux Esophagitis Status: Chronic (13) Removal of ovarian cyst Status: Resolved (14) Urin Tract Infection Nos Status: Resolved Current/Historical Medications Scheduled B-Complex Vitamins (B Complex), 1 CAP PO DAILY Control Pills ( Control Pills), 1 TAB PO DAILY Doxepin Hcl (Sinequan), 50 MG PO BID Gabapentin (Neurontin), 100 MG PO TID Hydromorphone Hcl (Dilaudid), 2-4 MG PO PRN UD Metformin Hcl (Glucophage), 1,000 MG PO DAILY Ondasetron Odt (Zofran Odt), 4 MG SL Q6H Propranolol La (Inderal La), 120 MG PO BID Ranitidine (Zantac), 150 MG PO BID Sertraline HCl (Sertraline HCl), 100 MG PO QPM Sumatriptan Succinate (Sumatriptan Succinate), 6 MG SC UD Scheduled PRN Akfxrsl-Hsuogpiegqkvv-Dxtpwwxp (Excedrin Migraine), 2 TABS PO UD PRN for Headache Clonazepam (Clonazepam), 0.5 MG PO BID PRN for Anxiety Hydrocodone/Acetaminophen 5MG/325MG ([place] 5MG/325MG), 1-2 TABLET PO Q6 PRN for Pain Ketorolac Tromethamine (Ketorolac Tromethamine), 30 MG INJ WK PRN for Migraine Meclizine HCl (Meclizine HCl), 25 MG PO TID PRN for Dizziness Allergies Coded Allergies: Verapamil (Verified Adverse Reaction, Unknown, "Black Out", 12/02/16) Vital Signs Date Time Temp Pulse Resp B/P (MAP) Pulse Ox O2 Delivery O2 Flow Rate FiO2 12/15/16 13:53 36.9 82 20 145/101 97 Room Air Medications Administered Medications (Trade) Dose Ordered Sig/Bharat Route Start Time Stop Time Status Last Admin Dose Admin Promethazine HCl (Phenergan Inj) 25 mg NOW STAT IM 12/15/16 14:05 12/15/16 14:07 DC 12/15/16 14:21 25 MG Morphine Sulfate (MoRPHine SULFATE INJ) 10 mg NOW STAT IM 12/15/16 14:05 12/15/16 14:07 DC 12/15/16 14:21 10 MG Departure Information Impression Primary Impression: Headache Dispostion Home / Self-Care Condition GOOD Referrals Patricia Grullon D.O. (PCP) Patient Instructions My [facility] Additional Instructions You have been treated in the Emergency Department for a Headache. You have received pain medicine in the emergency department which impairs your ability to operate a vehicle. It is illegal for you to drive after receiving these medicines. For pain control, you can use the following [id number]-[id number] medicines (if >12 yo): - Regular strength (325mg/tab) Tylenol (acetaminophen) 2 tabs every 4-6 hours as needed. Do not exceed 12 tablets in a 24 hour period. Avoid taking more than 3 grams (3000 mg) of Tylenol per day. This includes any other sources of acetaminophen you may take on a regular basis. - Regular strength (200 mg/tab) Advil (ibuprofen) 1-2 tabs every 4-6 hours as needed. Do not exceed a dose of 3200 mg per day. You should relax in a quiet, dark place for the rest of the day. Avoid any possible triggers including: cigarette smoke, caffeine, nicotine, chocolate, wine, beer, loud noises or music, or bright lights. You should schedule a follow-up appointment in 2-3 days with your Primary Care Provider or established Neurologist for further evaluation and treatment of your Headache. Return to the Emergency Department if your current symptoms worsen despite treatment course outlined above, or if you develop any of the following symptoms : intractable pain despite aforementioned treatment course, visual disturbances , loss of vision, unilateral weakness or facial drooping, slurring of speech, loss of coordination, or loss of consciousness. Please follow-up regarding elevated blood pressure today. Please return to the emergency department with any new/concerning symptoms.
[2016-12-25] MEDS ORDERED: ZLF/100 PO (13:30)
[2016-12-25] MEDS ORDERED: GABA-112 PO (13:35)
[2016-12-25] MEDS ORDERED: ZNTT/150 PO (13:45)
[2016-12-25] MEDS ORDERED: KETO30IN5 INJ (15:29)
[2016-12-25] MEDS ORDERED: ASPI-390 PO (16:14)
[2016-12-25] MEDS ORDERED: INDSR/120 PO (16:18)
[2016-12-25] MEDS ORDERED: HYDR4TAB2 PO (19:38)
[2016-12-25] MEDS ORDERED: SNQ/50 PO (19:38)
[2016-12-25] MEDS ORDERED: BCPILLS PO (21:01)
[2016-12-25] MEDS ORDERED: SUMA1INJ5 IM (21:06)
[2016-12-25] MEDS ORDERED: ANT25 PO (21:06)
[2016-12-25] MEDS ORDERED: METF-384 PO (21:06)
[2016-12-25] MEDS ORDERED: KLN5X PO (21:12)
[2017-03-22] MEDS ORDERED: BACL10TA PO (13:12)
== END 2016-12-15 14:38 | disposition home or self-care (01) ==
LOC: C.EDB 13:50 → C.EDD 14:38
DX: R51 Headache (principal); J45.909 Unspecified asthma, uncomplicated; I10 Essential (primary) hypertension; E11.9 Type 2 diabetes mellitus without complications; K57.30 Diverticulosis of large intestine without perforation or abscess without bleeding; E66.9 Obesity, unspecified; E28.2 Polycystic ovarian syndrome; K21.0 Gastro-esophageal reflux disease with esophagitis; Z87.442 Personal history of urinary calculi; Z79.3 Long term (current) use of hormonal contraceptives; Z79.899 Other long term (current) drug therapy

== ENCOUNTER → 2016-12-23 | Outpatient (CLI) | payer OTHER ==
[~2016-12-23] MED LIST changes: +ANT25 PO; +ASPI-390 PO; +BCPILLS PO; +FLX10 PO; +GABA-112 PO; +HYDR-4313 PO; +HYDR4TAB2 PO; +INDSR/120 PO; +KETO30IN5 INJ; +KLN5X PO; +METF-384 PO; +SNQ/50 PO; +SUMA1INJ5 IM; +ZLF/100 PO; +ZNTT/150 PO
== END | disposition home or self-care (01) ==
LOC: C.LAB 15:25
PROVIDERS: ATTEND Obstetrics & Gynecology
DX: N91.2 Amenorrhea, unspecified (principal)

== ENCOUNTER 2016-12-25 21:30 | Emergency (ER) | payer OTHER ==
[~2016-12-25] VITALS: Ht 167.6 cm; Wt 140.3 kg
[~2016-12-25 21:30] MED LIST changes: -FLX10 PO; -HYDR-4313 PO
[2016-12-25 21:39] VITALS: TEMP 37.1; Ht 167.6 cm; Wt 140.3 kg
[2016-12-25] MEDS ORDERED: MoRPHine SULFATE 10 MG/ML CARP/VIAL IM STA (21:54)
[2016-12-25] MEDS ORDERED: PROMETHAZINE HCL INJ 25 MG/ML 1 ML VIAL IM STA (21:54)
[2016-12-25 22:18] VITALS: BP 159/107; PULSE 81; O2SAT 98
[2016-12-25] MEDS ORDERED: HYDR-4313 PO (22:35)
[2016-12-25] MEDS ORDERED: FLX10 PO (22:35)
--- NOTE | 2016-12-26 01:49 | EMERGENCY ROOM VISIT NOTE ---
History First contact with patient: 21:39 Chief Complaint: HEADACHE Stated Complaint: MIGRAINE,NECK PAIN,SHOULDER PAIN,DIZZY History of Present Illness The patient is a 31 year old female who presents to the Emergency Room with complaints of headache described as throbbing, ranging in severity currently 8 out of 10 similar to prior. Headache was slow in onset. Patient denies numbness, vision problems, tingling, dysarthria, weakness, chest pain, dyspnea, fever, chills, cough, congestion or any other medical complaints. Review of Systems See HPI for pertinent positives & negatives. A total of 10 systems reviewed and were otherwise negative. Past Medical/Surgical History Medical Problems: (1) 38 to 41 weeks gestation of (2) Asthma, Unspecified (3) Benign hypertension (4) Cephalopelvic disproportion (5) Cholecystectomy (6) Diabetes mellitus (7) Diverticulosis Colon (W/O Ment Of Hemorrhage) (8) Headache in (9) intrauterine 25 weeks 3 days (10) Irregular contractions (11) Kidney stone (12) Migraine Unspecified W/O Intractable Migraine (13) Obesity, Nos (14) Ovarian Cyst Nec/Nos (15) Polycystic Ovaries (16) Pure Hypercholesterolem (17) Reflux Esophagitis (18) Removal of ovarian cyst (19) Urin Tract Infection Nos Family History Diabetes mellitus FH: cancer FH: gallbladder disease FH: heart disease FH: lung disease Hypertension Kidney disease Kidney stones Social History Smoking Status: Former Smoker Alcohol Use: none Drug Use: none Marital Status: Housing Status: lives with significant other Occupation Status: employed Current/Historical Medications Scheduled Control Pills ( Control Pills), 1 TAB PO DAILY Doxepin Hcl (Sinequan), 50 MG PO BID Gabapentin (Neurontin), 100 MG PO TID Metformin Hcl (Glucophage), 1,000 MG PO DAILY Propranolol La (Inderal La), 120 MG PO BID Ranitidine (Zantac), 150 MG PO BID Sertraline HCl (Sertraline HCl), 100 MG PO QPM Sumatriptan Succinate (Sumatriptan Succinate), 6 MG IM UD Scheduled PRN Acetaminophen/Hydrocodone (Hydrocodone/Acetaminophen 5-325 mg), 1-2 TABS PO Q6H PRN for Pain Tfrgtva-Elsebqpciaoel-Mtqmqzte (Excedrin Migraine), 2 TABS PO UD PRN for Headache Clonazepam (Clonazepam), 0.5 MG PO BID PRN for Anxiety Cyclobenzaprine HCl (Cyclobenzaprine HCl), 10 MG PO TID PRN for Muscle Spasm Hydromorphone Hcl (Dilaudid), 4 MG PO DAILY PRN for Pain Ketorolac Tromethamine (Ketorolac Tromethamine), 30 MG INJ WK PRN for Migraine Meclizine HCl (Meclizine HCl), 25 MG PO TID PRN for Dizziness Allergies Coded Allergies: Verapamil (Verified Adverse Reaction, Unknown, "Black Out", 12/02/16) Physical Exam Vital Signs Date Time Temp Pulse Resp B/P (MAP) Pulse Ox O2 Delivery O2 Flow Rate FiO2 12/25/16 22:18 81 18 159/107 98 Room Air 12/25/16 21:39 37.1 81 19 195/115 97 Room Air Pain Rating (0-10): 7.0 Physical Exam VITALS: Vitals are noted on the nurse's note and reviewed by myself. Vital signs hypertensive. GENERAL: Pleasant female, in no acute distress, nondiaphoretic, well-developed well-nourished. SKIN: The skin was without rashes, erythema, edema, or bruising. There is no tenting of the skin. Capillary reflex less than 2 seconds. HEAD: Normocephalic atraumatic. EARS: External auditory canals clear, tympanic membranes pearly sin without erythema or effusion bilaterally. EYES: Pupils equal round and reactive to light and accommodation. Conjunctivae without injection, sclerae without icterus. Extraocular movements intact. NOSE: Patent, turbinates without inflammation or discharge. No sinus tenderness. MOUTH: Mucous membranes moist. Pharynx without erythema or exudate. Uvula midline. Airway patent. Tongue does not deviate. NECK: Supple without nuchal rigidity. No lymphadenopathy. No thyromegaly. Cervical spine is nontender. No JVD. HEART: Regular rate and rhythm without murmurs gallops or rubs. LUNGS: Clear to auscultation bilaterally without wheezes, rales or rhonchi. No dullness to percussion. No retractions or accessory muscle use. ABDOMEN: Positive bowel sounds x 4. Normal tympanic percussion. Soft, nontender, without masses or organomegaly. Keenan sign negative. No guarding or rebound tenderness. MUSCULOSKELETAL: No muscle atrophy, erythema, or edema noted. NEURO: Patient was alert and oriented to person place and time. Normal sensation to light and sharp touch. No focal neurological deficits. Cranial nerves II through XII grossly intact. No pronator drift. Cerebellar exam intact. Medical Decision & Procedures Medications Administered Medications (Trade) Dose Ordered Sig/Bharat Route Start Time Stop Time Status Last Admin Dose Admin Morphine Sulfate (MoRPHine SULFATE INJ) 10 mg NOW STAT IM 12/25/16 21:54 12/25/16 21:56 DC 12/25/16 22:02 10 MG Promethazine HCl (Phenergan Inj) 25 mg NOW STAT IM 12/25/16 21:54 12/25/16 21:56 DC 12/25/16 22:01 25 MG ED Course Prior records/ancillary studies reviewed. Additional history obtained from family. Triage Nursing notes reviewed. The patient's history was concerning for headache. Differential diagnosis: Etiologies such as migraine headache, meningitis, sinusitis, CO exposure, ICH, SAH, infection, tumor, headache, sinus thrombosis, arterial dissection, as well as others were entertained. Physical examination findings: As above. Non-focal. ER treatment provided: Morphine and Phenergan per patient standard protocol On reassessment the patient felt better. Diagnostics interpreted by me: Deferred This appears to be consistent with migraine. Patient is well-known to this ER for frequent migraine visits. She is neurovascularly and neurologically intact. Blood pressure did improve. She is advised follow-up with family care in neurology or here in the ER sooner for headache, fevers, lethargy, worsening signs or symptoms or as needed. She no signs of meningitis. She is well- appearing.. By the evaluation outlined above emergent etiologies such as meningitis, sinusitis, CO exposure, ICH, SAH, infection, temporal arteritis, tumor, sinus thrombosis, arterial dissection, as well as others were deemed relatively unlikely. The pt informed about the findings as listed above. All questions were answered and pleased with the treatment. Return instructions were outlined and the patient was discharged in stable condition. Referral: The patient was referred back to their primary care physician for follow-up in 2 to 3 days for a recheck of the current condition. Medical Decision as above Impression Primary Impression: Migraine Departure Information Dispostion Home / Self-Care Condition GOOD Referrals Patricia Grullon D.O. (PCP) Forms HOME CARE DOCUMENTATION FORM, IMPORTANT VISIT INFORMATION Patient Instructions My [facility] Additional Instructions DO NOT drive, drink alcohol, operate machinery, or perform dangerous activities today. You were given medications in the ER that can affect your ability to safely function or operate a vehicle. Rest today in a quiet, peaceful, dark environment and get a full 8-10 hrs of sleep tonight. Avoid loud noises, smoke/smoking, alcohol, bright lights, stress, or physical exertion today to minimize the chance the headache may return. Continue current medications. Ibuprofen(Motrin, Advil) may be used for fever or pain. Use 600mg every six hours as needed. Take with food. Avoid using more than 2400mg in a 24 hour period. Do not use 2400mg per day for more than three consecutive days without physician direction. Prolonged inappropriate use can lead to stomach upset or ulcers. (AND/OR) Acetaminophen(Tylenol) may be used for fever or pain. Use 1000mg every six hours as needed. Avoid using more than 3000mg in a 24 hour period. Return to the ER for passing out, worsening headache, vision problems, neck stiffness/pain, fevers, vomiting, worsening of your condition, or as needed. Follow up with your primary physician and/or a neurologist in 2-3 days for a recheck of your current condition. Problem Qualifiers Primary Impression: Migraine Migraine type: without aura Status migrainosus presence: without status migrainosus Intractability: not intractable Qualified Codes: G43.009 - Migraine without aura, not intractable, without status migrainosus
[2017-03-22] MEDS ORDERED: BACL10TA PO (13:12)
== END 2016-12-25 22:20 | disposition home or self-care (01) ==
LOC: C.EDB 21:31 → C.EDD 22:20
DX: G43.009 Migraine without aura, not intractable, without status migrainosus (principal); J45.909 Unspecified asthma, uncomplicated; I10 Essential (primary) hypertension; Z90.49 Acquired absence of other specified parts of digestive tract; E11.9 Type 2 diabetes mellitus without complications; Z87.442 Personal history of urinary calculi; E66.9 Obesity, unspecified; Z68.42 Body mass index [BMI] 45.0-49.9, adult; E78.00 Pure hypercholesterolemia, unspecified; K21.9 Gastro-esophageal reflux disease without esophagitis; Z87.440 Personal history of urinary (tract) infections; Z83.3 Family history of diabetes mellitus; Z80.9 Family history of malignant neoplasm, unspecified; Z82.49 Family history of ischemic heart disease and other diseases of the circulatory system; Z84.1 Family history of disorders of kidney and ureter; Z87.891 Personal history of nicotine dependence; Z79.3 Long term (current) use of hormonal contraceptives; Z79.899 Other long term (current) drug therapy

== ENCOUNTER → 2017-01-04 | Outpatient (CLI) | payer OTHER ==
[~2017-01-04] MED LIST changes: -B-CO1CAP3 PO; +BACL10TA PO; +FLX10 PO; +HYDR-4313 PO; -HYDR-5688 PO; +IBUP-1277 PO; -ONDA4TAB10 SL; +SERT25TA PO
== END | disposition home or self-care (01) ==
LOC: C.PAPS 14:50
PROVIDERS: ATTEND Obstetrics & Gynecology
DX: Z12.4 Encounter for screening for malignant neoplasm of cervix (principal); R87.610 Atypical squamous cells of undetermined significance on cytologic smear of cervix (ASC-US)

== ENCOUNTER 2017-01-09 10:12 | Emergency (ER) | payer OTHER ==
[~2017-01-09] VITALS: Ht 167.6 cm; Wt 138.4 kg
[~2017-01-09 10:12] MED LIST changes: -BACL10TA PO; -IBUP-1277 PO; -SERT25TA PO
[2017-01-09 10:14] VITALS: TEMP 36.7; Ht 167.6 cm; Wt 138.4 kg
[2017-01-09] MEDS ORDERED: SODIUM CHLORIDE 0.9% 1000ML 2,000 ML IV STA (10:37)
[2017-01-09] MEDS ORDERED: METOCLOPRAMIDE HCL INJ 5 MG/ML 2 ML VIAL IV STA (10:37)
[2017-01-09] MEDS ORDERED: DiphenhydrAMINE HCL 50 MG/ML VIAL IV STA (10:37)
[2017-01-09] MEDS ORDERED: KETOROLAC TROMETHAMINE 30 MG/ML VIAL IV STA (10:37)
--- NOTE | 2017-01-09 10:42 | EMERGENCY ROOM VISIT NOTE ---
History Report prepared by Michelle: Shaw Negro Under the Supervision of: Dr. Kai Damon M.D. First contact with patient: 10:19 Chief Complaint: HEADACHE Stated Complaint: MIGRAINE, PRESSURE IN HEAD, NAUSEA, VOMITING History of Present Illness The patient is a 31 year old female who presents to the Emergency Room with complaints of a worsening headache for the past two days. The patient states that the pain gradually came on [place] and [place] was a hot day. The patient states that this pain is similar to her usual migraines with pain on the left side, though she is additionally having pressure in the front of her head. The patient additionally states that she is dizzy, nauseous, and is having blurry vision. Also, she states that she had a fever of 99.9 yesterday morning. The patient denies any trouble walking, cough, congestion, urinary symptoms, diarrhea, and abdominal pain. She states that she has similar migraines a few times per month. She states that she last took her medications this morning around 0400. Source of History: patient Onset: two days ago Position: head Quality: pressure Timing: worsening Associated Symptoms: + fevers, + nausea, No cough, No abdominal pain, No urinary symptoms Note: Associated symptoms: dizziness and blurry vision Review of Systems See HPI for pertinent positives and negatives. A total of ten systems were reviewed and were otherwise negative. Past Medical & Surgical Medical Problems: (1) 38 to 41 weeks gestation of (2) Asthma, Unspecified (3) Benign hypertension (4) Cephalopelvic disproportion (5) Cholecystectomy (6) Diabetes mellitus (7) Diverticulosis Colon (W/O Ment Of Hemorrhage) (8) Headache in (9) intrauterine 25 weeks 3 days (10) Irregular contractions (11) Kidney stone (12) Migraine Unspecified W/O Intractable Migraine (13) Obesity, Nos (14) Ovarian Cyst Nec/Nos (15) Polycystic Ovaries (16) Pure Hypercholesterolem (17) Reflux Esophagitis (18) Removal of ovarian cyst (19) Urin Tract Infection Nos Family History Diabetes mellitus FH: cancer FH: gallbladder disease FH: heart disease FH: lung disease Hypertension Kidney disease Kidney stones Social History Smoking Status: Former Smoker Alcohol Use: none Drug Use: none Marital Status: Housing Status: lives with significant other Occupation Status: employed Current/Historical Medications Scheduled Doxepin Hcl (Sinequan), 50 MG PO BID Gabapentin (Neurontin), 100 MG PO TID Metformin Hcl (Glucophage), 1,000 MG PO DAILY Propranolol La (Inderal La), 120 MG PO BID Ranitidine (Zantac), 150 MG PO BID Sertraline HCl (Sertraline HCl), 100 MG PO QPM Sumatriptan Succinate (Sumatriptan Succinate), 6 MG IM UD Scheduled PRN Acetaminophen/Hydrocodone (Hydrocodone/Acetaminophen 5-325 mg), 1-2 TABS PO Q6H PRN for Pain Dnzbqvr-Lbjnuszqfkrpp-Rktyavwx (Excedrin Migraine), 2 TABS PO UD PRN for Headache Clonazepam (Clonazepam), 0.5 MG PO BID PRN for Anxiety Cyclobenzaprine HCl (Cyclobenzaprine HCl), 10 MG PO TID PRN for Muscle Spasm Hydromorphone Hcl (Dilaudid), 4 MG PO DAILY PRN for Pain Ketorolac Tromethamine (Ketorolac Tromethamine), 30 MG INJ WK PRN for Migraine Meclizine HCl (Meclizine HCl), 25 MG PO TID PRN for Dizziness Allergies Coded Allergies: Verapamil (Verified Adverse Reaction, Unknown, "Black Out", 01/09/17) Physical Exam Vital Signs Date Time Temp Pulse Resp B/P (MAP) Pulse Ox O2 Delivery O2 Flow Rate FiO2 01/09/17 12:22 55 18 138/83 99 Room Air 01/09/17 10:14 36.7 73 16 144/100 96 Room Air Physical Exam GENERAL: Awake, alert, uncomfortable appearing, in no distress. Obese. HENT: Dry mucous membranes. Normocephalic, atraumatic. Oropharynx unremarkable. EYES: Normal conjunctiva. Sclera non-icteric. NECK: Supple. No nuchal rigidity. FROM. No JVD. RESPIRATORY: Clear to auscultation. CARDIAC: Regular rate, normal rhythm. Extremities warm and well perfused. Pulses equal. ABDOMEN: Soft, non-distended. No tenderness to palpation. No rebound or guarding. No masses. RECTAL: Deferred. MUSCULOSKELETAL: Chest examination reveals no tenderness. The back is symmetrical on inspection without obvious abnormality. There is no CVA tenderness to palpation. No joint edema. LOWER EXTREMITIES: Calves are equal size bilaterally and non-tender. No edema. No discoloration. NEURO: Normal sensorium. No sensory or motor deficits noted. SKIN: No rash or jaundice noted. Medical Decision & Procedures Laboratory Results Test 01/09/17 10:37 Urine Test NEG (NEG) Laboratory results reviewed by me Medications Administered Medications (Trade) Dose Ordered Sig/Bharat Route Start Time Stop Time Status Last Admin Dose Admin Sodium Chloride 2,000 ml @ 999 mls/hr Q2H1M STAT IV 01/09/17 10:37 01/09/17 12:37 DC 01/09/17 11:05 999 MLS/HR Metoclopramide HCl (Reglan Inj) 10 mg NOW STAT IV 01/09/17 10:37 01/09/17 10:42 DC 01/09/17 11:05 10 MG Ketorolac Tromethamine (Toradol Inj) 30 mg NOW STAT IV 01/09/17 10:37 01/09/17 10:42 DC 01/09/17 11:06 30 MG Diphenhydramine HCl (Benadryl Inj) 25 mg NOW STAT IV 01/09/17 10:37 01/09/17 10:42 DC 01/09/17 11:05 25 MG ED Course 1026: The patient was evaluated in room B12. A complete history and physical exam was performed. 1037: Benadryl Inj 25mg IV, Toradol Inj 30mg IV, Reglan Inj 10mg IV, Sodium Chloride 2000 ml @ 999 mls/hr IV 1214: I reevaluated the patient, and she feels better. She states that she is willing to go home and rest. 1249: I reevaluated the patient. Discussed results and discharge instructions: She verbalized understanding and agreement. The patient is ready for discharge. Medical Decision I reviewed the patient's past medical history, medications, and the nursing notes as described above. The patient's presentation and history were concerning for migraine vs. intracranial hemorrhage, temporal arteritis, meningitis. Patient is a 31-year-old woman past medical history chronic migraines who presents to emergency department with a headache that started on Tuesday with progressive onset per history of present illness. Arrives to emergency department mildly uncomfortable but otherwise in no acute distress, afebrile with stable vital signs. On exam patient is neuro intact, alert and oriented therefore bleed unlikely. Neck is supple. Considering the patient is afebrile with neck full range of motion meningitis unlikely moreover Temporal arteritis unlikely without temporal tenderness palpation. Symptoms most consistent with the patient's chronic migraine we'll treat with migraine cocktail and reassess. Patient feeling improved after treatment and feeling okay for discharge. Plan for PCP follow up. Patient agreeable and discharged per instructions. Medication Reconcilliation Current Medication List: was not reviewed Blood Pressure Screening Patient's blood pressure: Elevated blood pressure Blood pressure disposition: Elevated BP felt to be situational Impression Primary Impression: Migraine Scribe Attestation The scribe's documentation has been prepared under my direction and personally reviewed by me in its entirety. I confirm that the note above accurately reflects all work, treatment, procedures, and medical decision making performed by me. Departure Information Dispostion Home / Self-Care Referrals Patricia Grullon D.O. (PCP) Forms HOME CARE DOCUMENTATION FORM, IMPORTANT VISIT INFORMATION, Work Instructions Specific Date : 01/11/2017 Patient Instructions ED Headache Migraine, My [facility] Additional Instructions Please follow up with your primary care physician in the next 1-3 days. Your exam did not show signs of an emergent condition. Return to the emergency department for worsening symptoms as described in the accompanying instructions. Work Instructions Specific Date: 01/11/2017
[2017-01-09 12:22] VITALS: BP 138/83; PULSE 55; O2SAT 99
[2017-03-22] MEDS ORDERED: BACL10TA PO (13:12)
== END 2017-01-09 12:50 | disposition home or self-care (01) ==
LOC: C.EDB 10:14
DX: G43.909 Migraine, unspecified, not intractable, without status migrainosus (principal); I10 Essential (primary) hypertension; E11.9 Type 2 diabetes mellitus without complications; K57.30 Diverticulosis of large intestine without perforation or abscess without bleeding; E78.00 Pure hypercholesterolemia, unspecified; K21.0 Gastro-esophageal reflux disease with esophagitis; J45.909 Unspecified asthma, uncomplicated; E28.2 Polycystic ovarian syndrome; N83.209 Unspecified ovarian cyst, unspecified side; Z87.440 Personal history of urinary (tract) infections; Z90.49 Acquired absence of other specified parts of digestive tract; Z87.891 Personal history of nicotine dependence; Z79.84 Long term (current) use of oral hypoglycemic drugs; Z79.899 Other long term (current) drug therapy; Z88.8 Allergy status to other drugs, medicaments and biological substances; Z83.3 Family history of diabetes mellitus; Z80.9 Family history of malignant neoplasm, unspecified; Z83.79 Family history of other diseases of the digestive system; Z82.49 Family history of ischemic heart disease and other diseases of the circulatory system; Z84.1 Family history of disorders of kidney and ureter

== ENCOUNTER 2017-01-16 22:11 | Emergency (ER) | payer OTHER ==
[~2017-01-16] VITALS: Ht 167.6 cm; Wt 140.2 kg
[~2017-01-16 22:11] MED LIST changes: -BCPILLS PO
[2017-01-16 22:14] VITALS: Ht 167.6 cm; Wt 140.2 kg
[2017-01-16] MEDS ORDERED: SERT25TA PO (22:36)
[2017-01-16] MEDS ORDERED: MoRPHine SULFATE 10 MG/ML CARP/VIAL IM STA (23:00)
[2017-01-16] MEDS ORDERED: PROMETHAZINE HCL INJ 25 MG/ML 1 ML VIAL IM STA (23:00)
[2017-01-17 00:27] VITALS: BP 168/103; PULSE 77; TEMP 36.7; O2SAT 97
--- NOTE | 2017-01-17 05:41 | EMERGENCY ROOM VISIT NOTE ---
ED Visit Note First contact with patient: 22:48 CHIEF COMPLAINT: Migraine headache HISTORY OF PRESENT ILLNESS: This 31 year old female patient presented to the emergency department with a gradual onset of a severe generalized headache that started around 11am. The patient states the migraine is similar to their typical migraines. There has been associated photophobia, phonophobia, nausea and vomiting. The patient denies fever or chills recently, and there is no weakness or numbness of the extremities. There is no difficulty with speech or vision. No trauma to the head and no neck pain. The pain is severe, constant, and it is slowly increasing in severity. The patient rates the pain as dull and 9/10. The patient has taken Imitrex and Toradol at home. This is not the worst headache of the life and is similar to previous migraines. Previous imaging studies of the brain have been normal. REVIEW OF SYSTEMS: A review of systems was performed with positives and pertinent negatives listed in the history of present illness. All other systems were reviewed and are negative. ALLERGIES: Verapamil MEDICATIONS: See EMR PMH: history of chronic migraines SOCIAL HISTORY: Lives with family PHYSICAL EXAM: Vital Signs: Reviewed Nurse's notes, vital signs stable. GENERAL: white female, who appears in pain, but non toxic in appearance and in no acute distress. MENTAL STATUS: Alert, oriented, and coherent. HEENT: Normocephalic. PERRLA. EOMI. Nares patent without nuchal rigidity. Tympanic membranes pearly sin without erythema or effusion bilaterally. Mucous membranes moist. NECK: Supple, no nuchal rigidity, nontender, no lymphadenopathy. HEART: Regular rhythm and normal rate without murmurs, ectopy, gallops, or rubs. LUNGS: Clear to auscultation bilaterally without wheezes, rales or rhonchi. No dullness to percussion. No accessory muscle use. No retractions. SKIN: Normal. NEUROLOGICAL: Pupils are round, equal and react to light. The optic fundi are normal and the discs are flat. The patient moves all extremities well and the gait is normal. EMERGENCY DEPARTMENT COURSE: I examined the patient. The patient is on a 2 narcotic injection per month treatment plan for their migraines. The patient has concern that she may be . She had a test one week ago at this facility that was negative. She was able to provide a urine sample today, and this was again negative for . The patient was given 10 mg IM morphine and 25 mg IM per their usual protocol. I had a lengthy discussion regarding our upcoming change in policy to no narcotics for migraines. I explained that she should establish follow-up with her neurologist and primary care physician for alternative migraine treatments. He patient evidently has a follow-up appointment in 17 days with her neurologist, and was asked to keep that appointment. The differential diagnosis includes acute intracranial bleed, meningitis, encephalitis, mass or mass effect, sinusitis, infection, tumor, headache, temporal arteritis and carbon monoxide exposure, and migraine. The patient was discharged home in stable condition with a male train master driving. DIAGNOSIS: Migraine headache DISCHARGE INSTRUCTIONS & TREATMENT: No driving or alcohol. Rest at home in a quiet dark place. Continue medications as prescribed. Follow up with family doctor if symptoms persist. Problem List Medical Problems: (1) Asthma, Unspecified Status: Chronic (2) Benign hypertension Status: Chronic (3) Cholecystectomy Status: Resolved (4) Diabetes mellitus Status: Chronic (5) Diverticulosis Colon (W/O Ment Of Hemorrhage) Status: Chronic (6) Kidney stone Status: Resolved (7) Migraine Unspecified W/O Intractable Migraine Status: Chronic (8) Obesity, Nos Status: Chronic (9) Ovarian Cyst Nec/Nos Status: Chronic (10) Polycystic Ovaries Status: Chronic (11) Pure Hypercholesterolem Status: Chronic (12) Reflux Esophagitis Status: Chronic (13) Removal of ovarian cyst Status: Resolved (14) Urin Tract Infection Nos Status: Resolved Current/Historical Medications Scheduled Doxepin Hcl (Sinequan), 50 MG PO BID Metformin Hcl (Glucophage), 1,000 MG PO DAILY Propranolol La (Inderal La), 120 MG PO BID Ranitidine (Zantac), 150 MG PO BID Sertraline (Zoloft), 25 MG PO DAILY Sumatriptan Succinate (Sumatriptan Succinate), 6 MG IM UD Scheduled PRN Vtiwzga-Dfqtxsfawxtyf-Rtlahsdj (Excedrin Migraine), 2 TABS PO UD PRN for Headache Clonazepam (Clonazepam), 0.5 MG PO BID PRN for Anxiety Cyclobenzaprine HCl (Cyclobenzaprine HCl), 10 MG PO TID PRN for Muscle Spasm Hydromorphone Hcl (Dilaudid), 4 MG PO DAILY PRN for Pain Ketorolac Tromethamine (Ketorolac Tromethamine), 30 MG INJ WK PRN for Migraine Meclizine HCl (Meclizine HCl), 25 MG PO TID PRN for Dizziness Allergies Coded Allergies: Verapamil (Verified Adverse Reaction, Unknown, "Black Out", 01/09/17) Vital Signs Date Time Temp Pulse Resp B/P (MAP) Pulse Ox O2 Delivery O2 Flow Rate FiO2 01/17/17 00:27 36.7 77 16 168/103 97 01/16/17 22:14 36.7 77 16 178/115 99 Room Air Laboratory Results Test 01/17/17 00:27 Urine Test NEG (NEG) Medications Administered Medications (Trade) Dose Ordered Sig/Bharat Route Start Time Stop Time Status Last Admin Dose Admin Morphine Sulfate (MoRPHine SULFATE INJ) 10 mg NOW STAT IM 01/16/17 23:00 01/16/17 23:02 DC 01/17/17 00:07 10 MG Promethazine HCl (Phenergan Inj) 25 mg NOW STAT IM 01/16/17 23:00 01/16/17 23:02 DC 01/17/17 00:07 25 MG Departure Information Impression Primary Impression: Migraine Dispostion Home / Self-Care Condition GOOD Referrals No Doctor, Assigned Forms HOME CARE DOCUMENTATION FORM, IMPORTANT VISIT INFORMATION Patient Instructions My [facility] Additional Instructions You were seen and evaluated today on an emergency basis only. This is not a substitute for, or an effort to provide, complete comprehensive medical care. It is not possible to recognize and treat all injuries or illnesses in a single emergency department visit. For this reason it is recommended that you followup with your primary care physician or neurologist this week for ongoing care and evaluation. DO NOT drive, drink alcohol, operate machinery, or perform dangerous activities today. You were given medications in the ER that can affect your ability to safely function or operate a vehicle. Rest today in a quiet, peaceful, dark environment and get a full 8-10 hrs of sleep tonight. Avoid loud noises, smoke/smoking, alcohol, bright lights, stress, or physical exertion today to minimize the chance the headache may return. Continue current medications. Ibuprofen(Motrin, Advil) may be used for fever or pain. Use 600mg every six hours as needed. Take with food. Avoid using more than 2400mg in a 24 hour period. Do not use 2400mg per day for more than three consecutive days without physician direction. Prolonged inappropriate use can lead to stomach upset or ulcers. (AND/OR) Acetaminophen(Tylenol) may be used for fever or pain. Use 1000mg every six hours as needed. Avoid using more than 4000mg in a 24 hour period. Return to the ER for passing out, worsening headache, vision problems, neck stiffness/pain, fevers, vomiting, worsening of your condition, or as needed.
[2017-03-22] MEDS ORDERED: BACL10TA PO (13:12)
== END 2017-01-17 00:28 | disposition home or self-care (01) ==
LOC: C.EDB 22:11
DX: G43.909 Migraine, unspecified, not intractable, without status migrainosus (principal); J45.909 Unspecified asthma, uncomplicated; I10 Essential (primary) hypertension; E11.9 Type 2 diabetes mellitus without complications; E28.2 Polycystic ovarian syndrome; Z87.442 Personal history of urinary calculi; Z87.440 Personal history of urinary (tract) infections; Z90.49 Acquired absence of other specified parts of digestive tract; Z98.890 Other specified postprocedural states; Z79.84 Long term (current) use of oral hypoglycemic drugs

== ENCOUNTER 2017-02-03 23:07 | Emergency (ER) | payer OTHER ==
[~2017-02-03] VITALS: Ht 167.6 cm; Wt 137.4 kg
[~2017-02-03 23:07] MED LIST changes: -GABA-112 PO; -HYDR-4313 PO; +SERT25TA PO; -ZLF/100 PO
[2017-02-03 23:15] VITALS: TEMP 36.7; Ht 167.6 cm; Wt 137.4 kg
[2017-02-03] MEDS ORDERED: KETOROLAC TROMETHAMINE 60 MG/2 ML VIAL IM STA (23:27)
[2017-02-03] MEDS ORDERED: METOCLOPRAMIDE HCL INJ 5 MG/ML 2 ML VIAL IM STA (23:27)
[2017-02-03] MEDS ORDERED: DiphenhydrAMINE HCL 50 MG/ML VIAL IM STA (23:27)
--- NOTE | 2017-02-03 23:37 | EMERGENCY ROOM VISIT NOTE ---
History Report prepared by Michelle: Shaw Negro Under the Supervision of: Dr. Vijaya Null D.O. First contact with patient: 23:18 Chief Complaint: HEADACHE Stated Complaint: MIGRAINE, NECK PAIN, DIZZY History of Present Illness The patient is a 31 year old female who presents to the Emergency Room with complaints of a constant migraine starting this morning. The patient additionally states that she has been nauseous all day, though she has not vomited. She additionally she is having some cramping abdominal pain. She states that this migraine is similar to her usual migraines, and she has not been dropping things out of her hands. The patient states that she has tried all of the medication she has been prescribed, though it has not helped. She states that she has had no recent new medical issues. Source of History: patient Onset: this morning Position: head Quality: other (migraine) Timing: constant Associated Symptoms: + nausea, + abdominal pain, No vomiting Review of Systems See HPI for pertinent positives & negatives. A total of 10 systems reviewed and were otherwise negative. Past Medical & Surgical Medical Problems: (1) 38 to 41 weeks gestation of (2) Asthma, Unspecified (3) Benign hypertension (4) Cephalopelvic disproportion (5) Cholecystectomy (6) Diabetes mellitus (7) Diverticulosis Colon (W/O Ment Of Hemorrhage) (8) Headache in (9) intrauterine 25 weeks 3 days (10) Irregular contractions (11) Kidney stone (12) Migraine Unspecified W/O Intractable Migraine (13) Obesity, Nos (14) Ovarian Cyst Nec/Nos (15) Polycystic Ovaries (16) Pure Hypercholesterolem (17) Reflux Esophagitis (18) Removal of ovarian cyst (19) Urin Tract Infection Nos Family History Diabetes mellitus FH: cancer FH: gallbladder disease FH: heart disease FH: lung disease Hypertension Kidney disease Kidney stones Social History Smoking Status: Former Smoker Alcohol Use: none Drug Use: none Marital Status: Housing Status: lives with significant other Occupation Status: employed Current/Historical Medications Scheduled Doxepin Hcl (Sinequan), 50 MG PO BID Metformin Hcl (Glucophage), 1,000 MG PO DAILY Propranolol La (Inderal La), 120 MG PO BID Ranitidine (Zantac), 150 MG PO BID Sertraline (Zoloft), 25 MG PO DAILY Sumatriptan Succinate (Sumatriptan Succinate), 6 MG IM UD Scheduled PRN Vxwrivc-Wfdqxceolaiyc-Scyzgnds (Excedrin Migraine), 2 TABS PO UD PRN for Headache Clonazepam (Clonazepam), 0.5 MG PO BID PRN for Anxiety Cyclobenzaprine HCl (Cyclobenzaprine HCl), 10 MG PO TID PRN for Muscle Spasm Hydromorphone Hcl (Dilaudid), 4 MG PO DAILY PRN for Pain Ketorolac Tromethamine (Ketorolac Tromethamine), 30 MG INJ WK PRN for Migraine Meclizine HCl (Meclizine HCl), 25 MG PO TID PRN for Dizziness Allergies Coded Allergies: Verapamil (Verified Adverse Reaction, Unknown, "Black Out", 01/09/17) Physical Exam Vital Signs Date Time Temp Pulse Resp B/P (MAP) Pulse Ox O2 Delivery O2 Flow Rate FiO2 02/04/17 02:10 67 18 157/101 99 02/04/17 00:22 70 18 151/90 99 Room Air 02/03/17 23:15 36.7 72 17 158/106 98 Room Air Physical Exam HEENT: Head - normocephalic and atraumatic Pupils are equal, round, and reactive to light. Extraocular eye muscles are intact, and sclera are anicteric. Nose - moist nasal mucosa without discharge. Mouth - moist buccal mucosa. Oropharynx is nonerythematous and there is no tonsillar exudate or edema noted. Neck: Supple; no JVD, nuchal rigidity, cervical lymphadenopathy. Heart: Regular rate and rhythm. There is a normal S1 and S2 with no murmurs, clicks, or gallops appreciated. Lungs: Clear to auscultation bilaterally with no wheezes, rales, or rhonchi. Abdomen: Soft, completely nontender, nondistended, with good bowel sounds. There are no palpable pulsatile masses or hepatosplenomegaly. There is no guarding, rigidity, or rebound noted. Extremities: No evidence of cyanosis, clubbing, or edema. There are easily palpable peripheral pulses. Skin: warm and dry with good turgor and no rashes. Medical Decision & Procedures Medications Administered Medications (Trade) Dose Ordered Sig/Bharat Route Start Time Stop Time Status Last Admin Dose Admin Metoclopramide HCl (Reglan Inj) 10 mg NOW STAT IM 02/03/17 23:27 02/03/17 23:28 DC 02/03/17 23:48 10 MG Diphenhydramine HCl (Benadryl Inj) 50 mg NOW STAT IM 02/03/17 23:27 02/03/17 23:28 DC 02/03/17 23:48 50 MG Acetaminophen (Tylenol Tab) 1,000 mg NOW STAT PO 02/04/17 00:57 02/04/17 00:58 DC 02/04/17 01:12 1,000 MG Ondansetron HCl (Zofran Odt) 4 mg NOW STAT PO 02/04/17 00:57 02/04/17 00:58 DC 02/04/17 01:11 4 MG Procedure Benadryl IM, Reglan IM, Zofran PO, Tylenol PO ED Course 1: Past medical records reviewed. The patient was evaluated in room C6. A complete history and physical exam was performed. 2327: Benadryl Inj 50mg IM, Reglan Inj 10mg IM 2354: The patient refused any Toradol. 0052: I reevaluated the patient, and she states that she refused the Toradol because her already gave her a dose at 1800 tonight. The patient requested her usual dose of Phenergan and morphine. I explained to her that we are no longer providing opiates for chronic pain treatment plan here in the emergency department. She is agreeable to take Zofran and Tylenol. 0057: Zofran ODT 4mg PO, Tylenol Tab 1000mg PO 0149: Upon reevaluation, feeling better, and she is no longer nauseous. I discussed findings and results with her. She verbalized agreement of the treatment plan. She was discharged home. Medical Decision The patient is a 31 year old female who presents to the ED with migraines. Differential diagnosis includes tension headache, migraine, and cluster headache. The patient has a long-standing history of migraines for which she presents to the emergency department twice a month for treatment plan. The patient currently describes a migraine. She tried using Toradol home with a relief. She did finally get some relief of the nausea after Zofran ODT. I've asked the patient to follow-up with her neurologist in [place] for non-opiate treatment options. Medication Reconcilliation Current Medication List: was personally reviewed by me Blood Pressure Screening Patient's blood pressure: Elevated blood pressure Blood pressure disposition: Referred to PCP Impression Primary Impression: Headache Scribe Attestation The scribe's documentation has been prepared under my direction and personally reviewed by me in its entirety. I confirm that the note above accurately reflects all work, treatment, procedures, and medical decision making performed by me. Departure Information Dispostion Home / Self-Care Referrals Patricia Grullon D.O. (PCP) Forms HOME CARE DOCUMENTATION FORM, IMPORTANT VISIT INFORMATION Patient Instructions ED Headache Migraine, My [facility] Additional Instructions Follow up with Neurologist in [place] Problem Qualifiers Primary Impression: Headache Headache type: unspecified Headache chronicity pattern: episodic headache Intractability: intractable Qualified Codes: R51 - Headache
[2017-02-04] MEDS ORDERED: ONDANSETRON 4MG OD TAB PO STA (00:57)
[2017-02-04] MEDS ORDERED: ACETAMINOPHEN 500 MG TAB PO STA (00:57)
[2017-02-04 02:10] VITALS: BP 157/101; PULSE 67; O2SAT 99
[2017-03-22] MEDS ORDERED: BACL10TA PO (13:12)
== END 2017-02-04 02:10 | disposition home or self-care (01) ==
LOC: C.EDB 23:10 → C.EDC 02-04 02:10
DX: R51 Headache (principal); J45.909 Unspecified asthma, uncomplicated; I10 Essential (primary) hypertension; E11.9 Type 2 diabetes mellitus without complications; E66.9 Obesity, unspecified; E78.00 Pure hypercholesterolemia, unspecified; K21.9 Gastro-esophageal reflux disease without esophagitis; Z83.3 Family history of diabetes mellitus; Z82.49 Family history of ischemic heart disease and other diseases of the circulatory system; Z87.891 Personal history of nicotine dependence

== ENCOUNTER 2017-02-12 14:42 | Emergency (ER) | payer OTHER ==
[~2017-02-12] VITALS: Ht 167.6 cm; Wt 138.5 kg
[2017-02-12 14:44] VITALS: Ht 167.6 cm; Wt 138.5 kg
[2017-02-12] MEDS ORDERED: IBUP-1277 PO (14:55)
--- NOTE | 2017-02-12 15:16 | EMERGENCY ROOM VISIT NOTE ---
ED Visit Note First contact with patient: 14:51 CHIEF COMPLAINT: Ankle pain HISTORY OF PRESENT ILLNESS: This 31-year-old female patient presents to the emergency department ambulatory after sustaining an injury to the right ankle. The patient states that she was standing on a chair trying to hang up a picture , when she lost balance and fell. When she fell, she rolled her ankle. She reports pain in the front of the ankle. She rates her discomfort a 6/10. She reports a previous fracture to this ankle at a very young age. She is able to walk, but states it is painful to do so. She denies any numbness or weakness. She denies any pain of the foot. She denies any other injuries. REVIEW OF SYSTEMS: A 6 system review of systems was completed with positives and pertinent negatives listed in the HPI. ALLERGIES: Verapamil MEDICATIONS: See med list PMH: Migraine headaches SOCIAL HISTORY: The patient lives locally with family. Nonsmoker. PHYSICAL EXAM: Vital Signs: Reviewed Nurse's notes, vital signs stable. GENERAL : This is a 31-year-old female, no acute distress, but appears in pain, well- developed, well-nourished. MENTAL STATUS: Alert, oriented to person place and time, and cooperative. MUSCULOSKELETAL: There is no deformity the right ankle. No significant edema or ecchymosis. There is tenderness to palpation across the anterior aspect of the ankle. There is no fifth metatarsal tenderness. There is no tenderness over the rest of the foot. There is no calf or tibia/ fibular tenderness. There is no visual deformity. The foot and toes are warm and well-perfused. Dorsalis pedis pulse 2+. Sensation to pain and light touch is intact. Capillary refill less than 2 seconds. RADIOGRAPHIC FINDINGS: RIGHT ANKLE MIN 3 VIEWS ROUTINE HISTORY: 31 years-old Female right ankle injury Right acute right ankle pain status post fall. COMPARISON: None available TECHNIQUE: 3 views of the right ankle FINDINGS: No acute fracture or dislocation. Mild tibiotalar and dorsal midfoot degenerative changes are noted. There is prominent spurring about the calcaneus. There is mild soft tissue swelling about the ankle, greatest medially. IMPRESSION: 1. Mild soft tissue swelling about the ankle, greatest medially without fracture. 2. Prominent enthesopathy of the calcaneus. EMERGENCY DEPARTMENT COURSE: I examined the patient. X-rays of the right ankle were reviewed by myself and read by radiology and reveal no acute fractures. Gel ankle splint was applied to the ankle under my direction and the position was satisfactory. Neurovascular status was rechecked and intact. The patient has seen [facility] in the past and will follow-up with them cyst and or worsening symptoms. She verbalized understanding of my assessment and treatment plan. Conservative measures were discussed. The patient was discharged home in good condition. Blood pressure screening: Patient was found to have an elevated blood pressure and was referred to their primary care provider for recheck and further treatment. Medication reconciliation: I attest that I have personally reviewed the patient 's current medication list. DIAGNOSIS: Ankle sprain Problem List Medical Problems: (1) Asthma, Unspecified Status: Chronic (2) Benign hypertension Status: Chronic (3) Cholecystectomy Status: Resolved (4) Diabetes mellitus Status: Chronic (5) Diverticulosis Colon (W/O Ment Of Hemorrhage) Status: Chronic (6) Kidney stone Status: Resolved (7) Migraine Unspecified W/O Intractable Migraine Status: Chronic (8) Obesity, Nos Status: Chronic (9) Ovarian Cyst Nec/Nos Status: Chronic (10) Polycystic Ovaries Status: Chronic (11) Pure Hypercholesterolem Status: Chronic (12) Reflux Esophagitis Status: Chronic (13) Removal of ovarian cyst Status: Resolved (14) Urin Tract Infection Nos Status: Resolved Current/Historical Medications Scheduled Doxepin Hcl (Sinequan), 50 MG PO BID Metformin Hcl (Glucophage), 1,000 MG PO DAILY Propranolol La (Inderal La), 120 MG PO BID Ranitidine (Zantac), 150 MG PO BID Sertraline (Zoloft), 25 MG PO DAILY Sumatriptan Succinate (Sumatriptan Succinate), 6 MG IM UD Scheduled PRN Vvegvky-Qkdkmlccewjhj-Cmeqerwg (Excedrin Migraine), 2 TABS PO UD PRN for Headache Clonazepam (Clonazepam), 0.5 MG PO BID PRN for Anxiety Cyclobenzaprine HCl (Cyclobenzaprine HCl), 10 MG PO TID PRN for Muscle Spasm Hydromorphone Hcl (Dilaudid), 4 MG PO DAILY PRN for Pain Ibuprofen (Advil), 200-600 MG PO Q4H PRN for Pain Ketorolac Tromethamine (Ketorolac Tromethamine), 30 MG INJ WK PRN for Migraine Meclizine HCl (Meclizine HCl), 25 MG PO TID PRN for Dizziness Allergies Coded Allergies: Verapamil (Verified Adverse Reaction, Unknown, "Black Out", 02/12/17) Vital Signs Date Time Temp Pulse Resp B/P (MAP) Pulse Ox O2 Delivery O2 Flow Rate FiO2 02/12/17 14:44 36.9 86 16 179/120 96 Room Air Departure Information Impression Primary Impression: Ankle sprain Dispostion Home / Self-Care Condition GOOD Referrals Patricia Grullon D.O. (PCP) Gama Zelaya D.O. Patient Instructions [facility] Additional Instructions You have been treated in the Emergency Department for an Ankle sprain. For pain control, you can use the following igja-vbb-asupwze medicines (if >12 yo): - Regular strength (325mg/tab) Tylenol (acetaminophen) 2 tabs every 4-6 hours as needed. Do not exceed 12 tablets in a 24 hour period. Avoid taking more than 4 grams (4000 mg) of Tylenol per day. This includes any other sources of acetaminophen you may take on a regular basis. - Regular strength (200 mg/tab) Advil (ibuprofen) 1-2 tabs every 4-6 hours as needed. Do not exceed a dose of 3200 mg per day. If this is a recent injury (<24 hrs), ice can be applied to the area of pain for the first 3 days to help decrease pain and inflammation. You have been provided the number for an Orthopaedic Surgeon. Call this number for follow-up if you have persistent or worsening symptoms. Keep the ankle brace/splint in place until weight bearing is tolerable. Return to the Emergency Department if your current symptoms worsen despite treatment course outlined above, or if you develop any of the following symptoms : intractable pain despite aforementioned treatment course or new onset of numbness or tingling of the foot. Problem Qualifiers Primary Impression: Ankle sprain Encounter type: initial encounter Involved ligament of ankle: unspecified ligament Laterality: right Qualified Codes: S93.401A - Sprain of unspecified ligament of right ankle, initial encounter
--- NOTE | 2017-02-12 15:22 | DIAGNOSTIC IMAGING REPORT ---
RIGHT ANKLE MIN 3 VIEWS ROUTINE HISTORY: 31 years-old Female right ankle injury Right acute right ankle pain status post fall. COMPARISON: None available TECHNIQUE: 3 views of the right ankle FINDINGS: No acute fracture or dislocation. Mild tibiotalar and dorsal midfoot degenerative changes are noted. There is prominent spurring about the calcaneus. There is mild soft tissue swelling about the ankle, greatest medially. IMPRESSION: 1. Mild soft tissue swelling about the ankle, greatest medially without fracture. 2. Prominent enthesopathy of the calcaneus. The above report was generated using voice recognition software. It may contain grammatical, syntax or spelling errors. Electronically signed by: Gaston De La Rosa M.D. 02/12/2017 3:21 PM Dictated Date/Time: 02/12/2017 3:18 PM
[2017-02-12 15:58] VITALS: BP 140/80; PULSE 86; TEMP 36.9; O2SAT 96
[2017-03-22] MEDS ORDERED: BACL10TA PO (13:12)
== END 2017-02-12 15:59 | disposition home or self-care (01) ==
LOC: C.EDB 14:44 → C.EDD 15:59
DX: S93.401A Sprain of unspecified ligament of right ankle, initial encounter (principal); W07.XXXA Fall from chair, initial encounter; Y92.9 Unspecified place or not applicable; G43.909 Migraine, unspecified, not intractable, without status migrainosus; J45.909 Unspecified asthma, uncomplicated; I10 Essential (primary) hypertension; E11.9 Type 2 diabetes mellitus without complications; K57.30 Diverticulosis of large intestine without perforation or abscess without bleeding; E66.9 Obesity, unspecified; E28.2 Polycystic ovarian syndrome; E78.00 Pure hypercholesterolemia, unspecified; K21.0 Gastro-esophageal reflux disease with esophagitis; Z79.899 Other long term (current) drug therapy

== ENCOUNTER → 2017-03-14 | Outpatient (CLI) | payer OTHER ==
[~2017-03-14] MED LIST changes: +IBUP-1277 PO
== END | disposition home or self-care (01) ==
LOC: C.LAB 09:29
PROVIDERS: ATTEND Obstetrics & Gynecology
DX: E28.8 Other ovarian dysfunction (principal)

== ENCOUNTER → 2017-05-11 | Outpatient (CLI) | payer OTHER ==
[~2017-05-11] MED LIST changes: -ANT25 PO; +BACL10TA PO; -FLX10 PO; -IBUP-1277 PO
== END | disposition home or self-care (01) ==
LOC: C.LAB 14:23
PROVIDERS: ATTEND Obstetrics & Gynecology
DX: E28.8 Other ovarian dysfunction (principal)

== ENCOUNTER → 2017-06-09 | Outpatient (CLI) | payer OTHER ==
[~2017-06-09] MED LIST changes: +ESCI10TA17 PO; +RANI150T85 PO; -ZNTT/150 PO
== END | disposition home or self-care (01) ==
LOC: C.LAB 14:15
PROVIDERS: ATTEND Obstetrics & Gynecology
DX: N91.2 Amenorrhea, unspecified (principal)

== ENCOUNTER 2017-07-19 12:33 | Emergency (ER) | payer OTHER ==
[~2017-07-19] VITALS: Ht 167.6 cm; Wt 137.3 kg
[~2017-07-19 12:33] MED LIST changes: -ESCI10TA17 PO; -RANI150T85 PO; +ZNTT/150 PO
[2017-07-19 12:35] VITALS: TEMP 37; Ht 167.6 cm; Wt 137.3 kg
[2017-07-19] MEDS ORDERED: KETOROLAC TROMETHAMINE 60 MG/2 ML VIAL IM STA (13:18)
[2017-07-19] MEDS ORDERED: PROMETHAZINE HCL INJ 25 MG/ML 1 ML VIAL IM STA (13:18)
[2017-07-19] MEDS ORDERED: DEXAMETHASONE INJ 10 MG in SYRINGE 0 ML IM STA (13:18)
--- NOTE | 2017-07-19 13:25 | EMERGENCY ROOM VISIT NOTE ---
History Report prepared by Michelle: Tyrese Marquis Under the Supervision of: Dr. Gunnar Gonzales M.D. First contact with patient: 12:53 Chief Complaint: HEADACHE Stated Complaint: MIGRAINE,PAIN DOWN NECK History of Present Illness The patient is a 31 year old female who presents to the Emergency Room with complaints of a severe headache that began this morning. She has a past medical history of migraine headaches and states that her current headache feels similarly to her past episodes of migraines. Yesterday, the patient received an injection to the posterior neck for her chronic pains. This morning, the patient woke up with a typical migraine. She is experiencing dizziness, lightheadedness, blurry vision, and arm heaviness. Her pain is radiating from her injection site. She denies any abdominal pain. Source of History: patient Onset: this morning Position: head Symptom Intensity: severe Quality: ache Timing: constant Associated Symptoms: No abdominal pain Note: She is experiencing lightheadedness, dizziness, and arm heaviness. Review of Systems See HPI for pertinent positives & negatives. A total of 10 systems reviewed and were otherwise negative. Past Medical & Surgical Medical Problems: (1) 38 to 41 weeks gestation of (2) Asthma, Unspecified (3) Benign hypertension (4) Cephalopelvic disproportion (5) Cholecystectomy (6) Diabetes mellitus (7) Diverticulosis Colon (W/O Ment Of Hemorrhage) (8) Headache in (9) intrauterine 25 weeks 3 days (10) Irregular contractions (11) Kidney stone (12) Migraine Unspecified W/O Intractable Migraine (13) Obesity, Nos (14) Ovarian Cyst Nec/Nos (15) Polycystic Ovaries (16) Pure Hypercholesterolem (17) Reflux Esophagitis (18) Removal of ovarian cyst (19) Urin Tract Infection Nos Family History Diabetes mellitus FH: cancer FH: gallbladder disease FH: heart disease FH: lung disease Hypertension Kidney disease Kidney stones Social History Smoking Status: Never Smoker Alcohol Use: none Drug Use: none Marital Status: Housing Status: lives with significant other Occupation Status: employed Current/Historical Medications Scheduled Baclofen (Lioresal), 10 MG PO TID Doxepin Hcl (Sinequan), 50 MG PO BID Metformin Hcl (Glucophage), 1,000 MG PO DAILY Propranolol La (Inderal La), 120 MG PO BID Ranitidine (Zantac), 150 MG PO BID Sertraline (Zoloft), 25 MG PO HS Sumatriptan Succinate (Sumatriptan Succinate), 6 MG IM UD Scheduled PRN Ywrkhks-Dguhvivsvywhc-Mqybwkof (Excedrin Migraine), 2 TABS PO UD PRN for Headache Clonazepam (Clonazepam), 0.5 MG PO BID PRN for Anxiety Hydromorphone Hcl (Dilaudid), 4 MG PO DAILY PRN for Pain Ketorolac Tromethamine (Ketorolac Tromethamine), 60 MG INJ WK PRN for Migraine Allergies Coded Allergies: Verapamil (Verified Adverse Reaction, Unknown, "Black Out", 07/19/17) Physical Exam Vital Signs Date Time Temp Pulse Resp B/P (MAP) Pulse Ox O2 Delivery O2 Flow Rate FiO2 07/19/17 15:04 80 16 157/119 94 07/19/17 14:04 95 16 156/96 97 07/19/17 12:35 37.0 69 18 159/99 97 Room Air Physical Exam GENERAL: Patient is a healthy-appearing well-nourished female HEAD: Normocephalic atraumatic EYES: Ocular movements intact pupils equal and react to light OROPHARYNX mucous membranes are moist no exudates present no erythema or edema present NECK: Supple no nuchal rigidity, no evidence of meningitis or encephalitis on exam. The injection site to the left trapezius area is black and blue. CHEST: Good equal expansion LUNGS: Clear and equal to auscultation CARDIAC: Normal S1 and S2 ABDOMEN: Soft nontender no guarding BACK: No CVA tenderness EXTREMITIES: No pain upon palpation normal muscle strength in all groups no clubbing cyanosis or edema NEURO: Patient is following commands and answering questions appropriately. Alert and oriented x3 Cranial Nerves 2-12 grossly intact Medical Decision & Procedures Medications Administered Medications (Trade) Dose Ordered Sig/Bharat Route Start Time Stop Time Status Last Admin Dose Admin Ketorolac Tromethamine (Toradol Inj) 60 mg NOW STAT IM 07/19/17 13:18 07/19/17 13:21 DC 07/19/17 14:02 60 MG Dexamethasone Sodium Phosphate 10 mg/Syringe 2.5 ml @ 1 mls/min NOW STAT IM 07/19/17 13:18 07/19/17 13:21 DC 07/19/17 14:01 1 MLS/MIN Promethazine HCl (Phenergan Inj) 25 mg NOW STAT IM 07/19/17 13:18 07/19/17 13:21 DC 07/19/17 14:00 25 MG ED Course 1253: Past medical records reviewed. The patient was evaluated in room C8. A complete history and physical examination was performed. 1318: Ordered Phenergan Inj 25 mg IM, Dexamethasone Sodium Phosphate 10 mg/ Syringe 2.5 ml @ 1 mls/min IM, Toradol Inj 60 mg IM 1504: Upon reexamination the patient is resting. I discussed results and treatment plan with the patient. She verbalizes agreement and understanding. The patient is ready for discharge. Medical Decision Differential diagnosis: Etiologies such as migraine headache, meningitis, sinusitis, CO exposure, ICH, SAH, infection, tumor, headache, sinus thrombosis, arterial dissection, as well as others were entertained. This is a 31-year-old female who presents emergency department complaining of a migraine. The patient was given Toradol Decadron in the emergency department. I reiterated that we no longer treat migraines with narcotics and offered to perform an IV on the patient however she is refusing the IV. She is willing to try the Toradol and Decadron. Repeat examination revealed improvement patient' s symptoms. I recommended the patient follow-up with her neurologist and return if the pain becomes severe. Patient was in agreement with the treatment plan. Medication Reconcilliation Current Medication List: was personally reviewed by me Blood Pressure Screening Patient's blood pressure: Elevated blood pressure Blood pressure disposition: Referred to PCP Impression Primary Impression: Headache Scribe Attestation The scribe's documentation has been prepared under my direction and personally reviewed by me in its entirety. I confirm that the note above accurately reflects all work, treatment, procedures, and medical decision making performed by me. Departure Information Dispostion Home / Self-Care Referrals Patricia Grullon D.O. (PCP) Forms HOME CARE DOCUMENTATION FORM, IMPORTANT VISIT INFORMATION, School Instructions, Work Instructions Patient Instructions My [facility] Additional Instructions You have been examined and treated today on an emergency basis only. This is not a substitute for, or an effort to provide, complete comprehensive medical care. It is impossible to recognize and treat all injuries or illnesses in a single emergency department visit. It is therefore important that you follow up closely with Dr Grullon. Call as soon as possible for an appointment. Thank you for your time and consideration. I look forward to speaking with you again soon. Please don't hesitate to call us if you have any questions. Problem Qualifiers Primary Impression: Headache Headache type: tension-type Headache chronicity pattern: acute headache Intractability: not intractable Qualified Codes: G44.209 - Tension-type headache, unspecified, not intractable
[2017-07-19 15:04] VITALS: BP 157/119; PULSE 80; O2SAT 94
== END 2017-07-19 15:04 | disposition home or self-care (01) ==
LOC: C.EDB 12:34 → C.EDC 15:04
DX: G43.909 Migraine, unspecified, not intractable, without status migrainosus (principal); E11.9 Type 2 diabetes mellitus without complications; I10 Essential (primary) hypertension; Z88.8 Allergy status to other drugs, medicaments and biological substances; Z79.899 Other long term (current) drug therapy; Z82.49 Family history of ischemic heart disease and other diseases of the circulatory system

== ENCOUNTER → 2018-01-03 | Outpatient (CLI) | payer OTHER ==
[~2018-01-03] MED LIST changes: +ESCI10TA17 PO; +RANI150T85 PO; -SNQ/50 PO; -ZNTT/150 PO
[2018-01-03 17:19] LABS: FOLLICLE STIMULAT HORMONE 6.04 IU/L; LUTEINIZING HORMONE 5.04 IU/L; PROLACTIN 9.57 ng/mL
== END | disposition home or self-care (01) ==
LOC: C.LAB 15:43
PROVIDERS: ATTEND Obstetrics & Gynecology
DX: N91.2 Amenorrhea, unspecified (principal)

== ENCOUNTER 2021-03-09 16:38 | Inpatient (IN) ==
[2021-03-09] MEDS ORDERED: diphenhydrAMINE 50 MG/ML VIAL IV STA (21:09)
[2021-03-09] MEDS ORDERED: METOCLOPRAMIDE HCL INJ 5 MG/ML 2 ML VIAL IV STA (21:09)
[2021-03-09] MEDS ORDERED: dexAMETHasone**PF** 10 MG/ML VIAL IV ONE (21:09)
--- NOTE | 2021-03-09 21:26 | Emergency Department Note ---
Impression & Plan Pneumonia due to COVID-19 virus, Migraine, Hypoxia ED Provider Note Provider: Sal Mccormick MD DATE OF SERVICE: 03/09/2021 CHIEF COMPLAINT: Migraine, Covid, shortness of breath HISTORY OF PRESENT ILLNESS: Patient is a 35-year-old female history of MRSA, migraines, vertigo, and diabetes presenting here today stating that she began with some mild Covid type symptoms with sinus drainage and congestion 8 days ago. Tested positive for Covid this past week. Was exposed at work. States that she got bad migraine last night called her doctor today and started some prednisone. Headache has not improved and she took some ibuprofen at home as well. No trauma or syncope reported. Reports today her breathing seems worse in particular with walking back to the room from the waiting room she had some slight chest pressure and difficulty breathing. Denies any significant abdominal pain but endorses some diarrhea and minimal nausea. Some slightly sensitivities reported. Denies significant numbness or weakness newly in the extremities. Patient is not vaccinated for Covid. REVIEW OF SYSTEMS: A total of 10 review of systems was obtained and negative except as stated above in the HPI. PAST MEDICAL HISTORY: As noted above MEDICATIONS: Reviewed home medications SOCIAL HISTORY: Non-smoker lives at home with PHYSICAL EXAM: GENERAL: alert and oriented in no acute distress on stretcher Head: normocephalic and atraumatic EYES: No injection, discharge or icterus. NECK: Trachea midline. LUNGS: Airway patent. No retractions. Breath sounds clear HEART: Regular rate and rhythm. No chest wall tenderness ABDOMEN: Soft and non-tender, without guarding or rebound. SKIN: Acyanotic, warm, dry, without rashes EXTREMITIES: Without swelling, tenderness or deformity NEUROLOGICAL: No focal deficits. No aphasia. No facial droop or slurred speech. Ambulatory. EK bpm normal sinus rhythm. No PVC or PAC. QTc 441. No acute ST segment elevation. Some respiratory artifact but no clear ST depression appreciated. CONTINUOUS CARDIAC MONITORING: was ordered and showed a heart rate of 70s to 90s bpm in normal sinus rhythm 1 view chest x-ray per my interpretation: Some cardiomegaly is noted with some diffuse viral inflammation/pneumonitis, no pneumothorax Patient's laboratory studies and imaging reviewed. Differential includes Infection, dehydration, metabolic abnormality, hypo/hyperglycemia, electrolyte disturbance, anemia, hypoxia, cardiac sources, intracerebral event, toxicologic, neurologic, as well as other pathologies. IMPRESSION/MEDICAL DECISION MAKING: Patient is a clear migraine type symptoms. 8 days into Covid 19 infection & tested positive last week. No specific acute neurological deficits. Patient does not appear meningitic. No trauma. Borderline hypoxic at rest in the high 80s to 90s but desats into the mid to low 80s with ambulation. Lower suspicion for PE. Chest x-ray per my review with evidence of diffuse infiltrative changes consistent with likely pneumonitis. Blood work was obtained. Mild leukopenia consistent with viral infection. Negative . Given dexamethasone here with her Covid hypoxia in addition to medication to help with her headache. Discussed with the patient the need with her hypoxia for further care and oxygen supplementation. She is in agreement with this. The hospitalist be contacted. On reevaluation her headache was improved. DIAGNOSIS: COVID-19, hypoxia, migraine DISPOSITION: Hospitalist will evaluate Patient was agreeable with this plan. Past Med/Surg History Medical History Anxiety Benign positional vertigo treated PRN Cervical radiculopathy Chronic migraine without aura with status migrainosus, not intractable Depression GERD (gastroesophageal reflux disease) Hx of endometriosis Hypertension Insomnia Kidney stones Lumbar spinal stenosis Nausea and vomiting after administration of anesthetic agent Peptic ulcer disease hx Pre-diabetes Sleep apnea bipap Surgical History H/O section (04/28/11) x1 History of cholecystectomy (01/27/13) History of dilatation and curettage History of esophagogastroduodenoscopy (EGD) History of laparoscopy History of ovarian cystectomy x2 S/P epidural steroid injection Family History Mother Diabetes Hypertension Stroke syndrome Chronic kidney disease Congestive heart failure Sarcoidosis Father Heart disease Hypertension Social History Smoking Status: Never smoker Second Hand Exposure: Yes; Hx Alcohol Use: No Hx Substance Use: No Preferred Language: Romanian Communication Ability: Effective Visual Impairment: No Limitations Hearing Ability: Normal Facility Technician Required: No Beliefs That Will Affect Care: None marital status: Current Living Situation: Spouse and Family Current Living Situation Comment: , daugher and father current occupational status: employed 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 Feels Safe at Home: Yes Assistive Devices: BiPap and Glasses Allergies Allergies Allergy/AdvReac Type Severity Reaction Status Date / Time verapamil AdvReac Unknown "Black Out" Verified 03/09/21 21:49 Home Meds Home Medications Medication Instructions Recorded Confirmed metformin 1,000 mg tablet 1,000 mg PO QAM 03/29/18 03/09/21 bupropion HCl 150 mg 24 hr tablet, 150 mg PO QAM 02/13/20 03/09/21 extended release chlorthalidone 25 mg tablet 25 mg PO QAM 02/13/20 03/09/21 famotidine 40 mg tablet 40 mg PO QAM 02/13/20 03/09/21 lisinopril 10 mg tablet 10 mg PO QAM 02/13/20 03/09/21 sucralfate 1 gram tablet 1 g PO ACHS 02/13/20 03/09/21 clonazepam 1 mg tablet 1 mg PO TID PRN 03/03/20 03/09/21 escitalopram oxalate 10 mg tablet 30 mg PO QAM 03/03/20 03/09/21 hydroxyzine HCl 25 mg tablet 25 - 50 mg PO HS 03/03/20 03/09/21 meclizine 25 mg tablet 25 mg PO DAILY PRN 06/02/20 03/09/21 buspirone 10 mg tablet 10 mg PO QAM 12/02/20 03/09/21 Previous Rx's Medication Instructions Recorded diclofenac sodium 75 mg 75 mg PO BID #60 tab 07/28/20 tablet,delayed release ketorolac 60 mg/2 mL intramuscular 30 mg IM WK PRN 30 Days #4 ml 01/12/21 solution syringe with needle 3 mL 21 gauge #100 ea 01/12/21 x 1 1/2" (BD Luer-Indira Syringe) hydromorphone 4 mg tablet 4 mg PO DAILY PRN 30 Days #8 tab 02/02/21 Results & Data (ED) Vital Signs Vital Signs - 24 hr 03/09/21 18:00 03/09/21 22:00 03/09/21 22:30 Temperature 36.7 C Temperature Source Temporal Artery Scan Pulse Rate 99 H 84 84 Pulse Rate from SpO2 Sensor 83 84 Respiratory Rate 18 21 22 Blood Pressure 158/106 H 144/99 H 112/74 Blood Pressure Mean 123 114 86 Pulse Oximetry 90 91 91 Oxygen Delivery Method Room Air Nasal Cannula Nasal Cannula Oxygen Flow Rate 2 2 Sepsis Recent Fever Within 48 Hours No Sepsis New/Unexplained Change in Mental Status No Sepsis Action Taken by Nursing No Action Required Laboratory Data Result diagrams: 03/09/21 21:39 03/09/21 21:39 Lab Results 03/09/21 03/09/21 03/09/21 Range/Units 21:39 21:39 21:39 WBC 2.83 L (4.8-10.8) K/uL RBC 5.01 (4.2-5.4) M/uL Hgb 13.1 (12.0-16.0) g/dL Hct 41.8 (37-47) % MCV 83.4 (80-100) fL MCH 26.1 (25-34) pg MCHC 31.3 L (32-36) g/dL RDW Std Deviation 51.2 H (36.4-46.3) fL RDW Coeff of Lucie 16.6 H (11.5-14.5) % Plt Count 342 (130-400) K/uL MPV 8.8 (7.4-10.4) fL Immature Gran % (Auto) 0.0 % Neut % (Auto) 65.0 % Lymph % (Auto) 26.5 % Gates % (Auto) 8.5 % Eos % (Auto) 0.0 % Baso % (Auto) 0.0 % Neut # (Auto) 1.84 (1.4-6.5) K/uL Lymph # (Auto) 0.75 L (1.2-3.4) K/uL [place] # (Auto) 0.24 (0.11-0.59) K/uL Eos # (Auto) 0.00 (0-0.5) K/uL Baso # (Auto) 0.00 (0-0.2) K/uL Immature Gran # (Auto) 0.00 (0.00-0.02) K/uL PT 10.1 (9.0-12.0) Seconds INR 1.0 (0.9-1.1) Sodium 141 (136-145) mmol/L Potassium 3.7 (3.5-5.1) mmol/L Chloride 105 (98-107) mmol/L Carbon Dioxide 27 (21-32) mmol/L Anion Gap 9.0 (3-11) BUN 16 (7-18) mg/dl Creatinine 1.03 (0.6-1.2) mg/dl Est Cr Clr Drug Dosing 107.0 ml/min Est GFR ( Amer) 81.0 ml/min Est GFR (Non-Af Amer) 69.9 ml/min BUN/Creatinine Ratio 15.3 (10-20) Glucose 119 H (70-99) mg/dl Calcium 9.1 (8.5-10.1) mg/dl Magnesium 2.2 (1.8-2.4) mg/dl Total Bilirubin 0.3 (0.2-1) mg/dl AST 29 (15-37) U/L ALT 19 (12-78) U/L Alkaline Phosphatase 73 (45-117) U/L Troponin I < 0.015 (0-0.045) ng/ml NT-Pro-B Natriuret Pep 36 (0-450) pg/ml Total Protein 8.3 H (6.4-8.2) gm/dl Albumin 3.3 L (3.4-5.0) gm/dl Globulin 5.0 H (2.5-4.0) gm/dl Albumin/Globulin Ratio 0.7 L (0.9-2) HCG, Qual (Negative) COVID-19 Eval Order SARS-CoV-2 (PCR) (Negative) 03/09/21 03/09/21 03/09/21 Range/Units 21:39 21:39 21:39 WBC (4.8-10.8) K/uL RBC (4.2-5.4) M/uL Hgb (12.0-16.0) g/dL Hct (37-47) % MCV (80-100) fL MCH (25-34) pg MCHC (32-36) g/dL RDW Std Deviation (36.4-46.3) fL RDW Coeff of Lucie (11.5-14.5) % Plt Count (130-400) K/uL MPV (7.4-10.4) fL Immature Gran % (Auto) % Neut % (Auto) % Lymph % (Auto) % [place] % (Auto) % Eos % (Auto) % Baso % (Auto) % Neut # (Auto) (1.4-6.5) K/uL Lymph # (Auto) (1.2-3.4) K/uL [place] # (Auto) (0.11-0.59) K/uL Eos # (Auto) (0-0.5) K/uL Baso # (Auto) (0-0.2) K/uL Immature Gran # (Auto) (0.00-0.02) K/uL PT (9.0-12.0) Seconds INR (0.9-1.1) Sodium (136-145) mmol/L Potassium (3.5-5.1) mmol/L Chloride (98-107) mmol/L Carbon Dioxide (21-32) mmol/L Anion Gap (3-11) BUN (7-18) mg/dl Creatinine (0.6-1.2) mg/dl Est Cr Clr Drug Dosing ml/min Est GFR ( Amer) ml/min Est GFR (Non-Af Amer) ml/min BUN/Creatinine Ratio (10-20) Glucose (70-99) mg/dl Calcium (8.5-10.1) mg/dl Magnesium (1.8-2.4) mg/dl Total Bilirubin (0.2-1) mg/dl AST (15-37) U/L ALT (12-78) U/L Alkaline Phosphatase (45-117) U/L Troponin I (0-0.045) ng/ml NT-Pro-B Natriuret Pep (0-450) pg/ml Total Protein (6.4-8.2) gm/dl Albumin (3.4-5.0) gm/dl Globulin (2.5-4.0) gm/dl Albumin/Globulin Ratio (0.9-2) HCG, Qual Negative (Negative) COVID-19 Eval Order Covid19 at [facility] SARS-CoV-2 (PCR) POSITIVE A* (Negative) Administered Medications Discontinued Medications Dexamethasone Sodium Phosphate (DexamethasonePf 10 Mg/Ml Vial) 6 mg IV NOW ONE Stop: 03/09/21 21:10 Last Admin: 03/09/21 21:36 Dose: 6 mg Documented by: [id number] Diphenhydramine HCl (Diphenhydramine 50 Mg/Ml Vial) 25 mg IV NOW STA Stop: 03/09/21 21:10 Last Admin: 03/09/21 21:36 Dose: 25 mg Documented by: [id number] Metoclopramide HCl (Metoclopramide Hcl Inj 5 Mg/Ml 2 Ml Vial) 10 mg IV NOW STA Stop: 03/09/21 21:10 Last Admin: 03/09/21 21:36 Dose: 10 mg Documented by: [id number] Discharge Plan Visit Data Chief Complaint: Headache Stated Complaint: MIGRAINE, COVID + ED Provider: Sal Mccormick Discharge Problem: Pneumonia due to COVID-19 virus, Migraine, Hypoxia Patient Disposition: Being Evaluated by Hospitalist Forms Stand Alone Forms: [facility] Prescriptions Prescriptions: No Action diclofenac sodium 75 mg tablet,delayed release (DR/EC) 75 mg PO BID Qty: 60 RF: 3 ketorolac 60 mg/2 mL solution 30 mg IM WK PRN (Reason: Migraine Headache) 30 Days Qty: 4 RF: 3 (DME) syringe with needle [BD Luer-Indira Syringe] 3 mL 21 gauge x 1 1/2" syringe See Rx Instructions .ROUTE .MEDSUPPLY Qty: 100 RF: 0 hydromorphone 4 mg tablet 4 mg PO DAILY PRN (Reason: severe headache) 30 Days Qty: 8 RF: 0 metformin 1,000 mg Tablet 1,000 mg PO QAM RF: 0 sucralfate 1 gram tablet 1 g PO ACHS RF: 0 bupropion HCl 150 mg tablet extended release 24 hr 150 mg PO QAM RF: 0 famotidine 40 mg tablet 40 mg PO QAM RF: 0 chlorthalidone 25 mg tablet 25 mg PO QAM RF: 0 lisinopril 10 mg tablet 10 mg PO QAM RF: 0 meclizine 25 mg Tablet 25 mg PO DAILY PRN (Reason: Vertigo) RF: 0 clonazepam 1 mg tablet 1 mg PO TID PRN (Reason: Anxiety) RF: 0 hydroxyzine HCl 25 mg tablet 25 - 50 mg PO HS RF: 0 escitalopram oxalate 10 mg tablet 30 mg PO QAM RF: 0 buspirone 10 mg Tablet 10 mg PO QAM RF: 0 Referrals Referrals: Patricia Grullon DO [Primary Care Provider] -
[2021-03-09 22:03] LABS: Hematocrit (blood only) 41.8 % (37-47); Hemoglobin 13.1 g/dL (12.0-16.0); Lymphocytes # (auto) 0.75 K/uL (1.2-3.4); Lymphocytes % (auto) 26.5 %; Mean Corpuscular Hemoglobin 26.1 pg (25-34); Mean Corpuscular Hgb Conc 31.3 g/dL (32-36); Mean Corpuscular Volume 83.4 fL (80-100); Mean Platelet Volume 8.8 fL (7.4-10.4); Monocytes # (auto) 0.24 K/uL (0.11-0.59); Monocytes % (auto) 8.5 %; Neutrophils # (auto) 1.84 K/uL (1.4-6.5); Platelet Count 342 K/uL (130-400); RDW Coefficient of Variation 16.6 % (11.5-14.5); RDW Standard Deviation 51.2 fL (36.4-46.3); Red Blood Count 5.01 M/uL (4.2-5.4); White Blood Count 2.83 K/uL (4.8-10.8)
[2021-03-09 22:09] LABS: Prothrombin Time 10.1 Seconds (9.0-12.0)
[2021-03-09 22:25] LABS: Alanine Aminotransferase 19 U/L (12-78); Albumin Level 3.3 gm/dl (3.4-5.0); Aspartate Aminotransferase 29 U/L (15-37); BUN Creatinine Ratio 15.3 (10-20); Blood Urea Nitrogen 16 mg/dl (7-18); Calcium 9.1 mg/dl (8.5-10.1); Carbon Dioxide 27 mmol/L (21-32); Chloride 105 mmol/L (98-107); Est GFR (Non-African American) 69.9 ml/min; Glucose 119 mg/dl (70-99); Magnesium 2.2 mg/dl (1.8-2.4); Potassium 3.7 mmol/L (3.5-5.1); Pregnancy Test, Serum Negative (Negative); Sodium 141 mmol/L (136-145)
[2021-03-09 22:29] LABS: Albumin Globulin Ratio 0.7 (0.9-2); Alkaline Phosphatase 73 U/L (45-117); Bilirubin,Total 0.3 mg/dl (0.2-1); Total Protein 8.3 gm/dl (6.4-8.2); Troponin I < 0.015 ng/ml (0-0.045)
[2021-03-09] MEDS ORDERED: LEVALBUTEROL TARTRATE 15 GM HFA.AER.AD INH STA (23:27)
[2021-03-09 23:44] LABS: NT Pro B Type Natriuretic Pept 36 pg/ml (0-450)
--- NOTE | 2021-03-10 00:12 | History & Physical Report ---
Date of Service March 10, 2021 Assessment & Plan (1) Acute hypoxemic respiratory failure: Plan: Secondary to severe COVID-19 pneumonia hypertension, slight elevated anxiety/mood disorder, at baseline migraine attack secondary to illness DM2 on oral medications, well-controlled as of recent hemoglobin A1c of 5.19 November 2020 Medical telemetry Supplemental O2 Decadron and Remdesivir for severe COVID-19 pneumonia. (Patient hesitant to receive Remdesivir for now.) Pulmonary consult if without improvement. Basal insulin, ISS BG goal 1 10-1 40, carb count coverage, update hemoglobin A1c DVT prophylaxis per Lovenox subcu Full code Text document was generated using [employer] voice recognition software. It may contain grammatical or spelling errors. Kindly contact undersigned for clarification of any documentation item in question. History of Present Illness Chief Complaint: Worsening shortness of breath, Covid Primary Care Provider: Patricia Grullon DO History obtained from patient and records. Medical history significant for hypertension, anxiety/mood disorder, migraine, DM2 on oral medications, past tobacco abuse Last week, patient noted sinus congestion symptoms. Sick COVID-19 contacts at work and at home. Patient prescribed Augmentin course. Outpatient COVID-19 test later noted to be positive. Throbbing migraine attack a few days later. Junky cough, patient unable to expectorate. Worsening shortness of breath without chest pain. Patient PCP prescribed Medrol Dosepak yesterday. Patient consulted ER for worsening symptoms. O2 sats 80s at 1 point. IV Decadron administered at the ER. 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 Allergy/AdvReac Type Severity Reaction Status Date / Time verapamil AdvReac Unknown "Black Out" Verified 03/09/21 21:49 Home Medications Medication Instructions Recorded Confirmed Type metformin 1,000 mg tablet 1,000 mg PO QAM 03/29/18 03/09/21 History bupropion HCl 150 mg 24 hr tablet, 150 mg PO QAM 02/13/20 03/09/21 History extended release chlorthalidone 25 mg tablet 25 mg PO QAM 02/13/20 03/09/21 History famotidine 40 mg tablet 40 mg PO QAM 02/13/20 03/09/21 History lisinopril 10 mg tablet 10 mg PO QAM 02/13/20 03/09/21 History sucralfate 1 gram tablet 1 g PO ACHS 02/13/20 03/09/21 History clonazepam 1 mg tablet 1 mg PO TID PRN 03/03/20 03/09/21 History escitalopram oxalate 10 mg tablet 30 mg PO QAM 03/03/20 03/09/21 History hydroxyzine HCl 25 mg tablet 25 - 50 mg PO HS 03/03/20 03/09/21 History meclizine 25 mg tablet 25 mg PO DAILY PRN 06/02/20 03/09/21 History diclofenac sodium 75 mg 75 mg PO BID #60 tab 07/28/20 03/09/21 Rx tablet,delayed release buspirone 10 mg tablet 10 mg PO QAM 12/02/20 03/09/21 History ketorolac 60 mg/2 mL intramuscular 30 mg IM WK PRN 30 Days #4 ml 01/12/21 03/09/21 Rx solution syringe with needle 3 mL 21 gauge #100 ea 01/12/21 Rx x 1 1/2" (BD Luer-Indira Syringe) hydromorphone 4 mg tablet 4 mg PO DAILY PRN 30 Days #8 tab 02/02/21 03/09/21 Rx Past Med/Surg History Medical History Anxiety Benign positional vertigo treated PRN Cervical radiculopathy Chronic migraine without aura with status migrainosus, not intractable Depression GERD (gastroesophageal reflux disease) Hx of endometriosis Hypertension Insomnia Kidney stones Lumbar spinal stenosis Nausea and vomiting after administration of anesthetic agent Peptic ulcer disease hx Pre-diabetes Sleep apnea bipap Surgical History H/O section (04/28/11) x1 History of cholecystectomy (01/27/13) History of dilatation and curettage History of esophagogastroduodenoscopy (EGD) History of laparoscopy History of ovarian cystectomy x2 S/P epidural steroid injection Family History Mother Diabetes Hypertension Stroke syndrome Chronic kidney disease Congestive heart failure Sarcoidosis Father Heart disease Hypertension Social History Smoking Status: Former smoker Second Hand Exposure: Yes (); Do You Dip or Chew Tobacco: No; Hx Alcohol Use: Yes Hx Substance Use: No Preferred Language: Luxembourgish Communication Ability: Effective Visual Impairment: No Limitations Hearing Ability: Normal 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 Beliefs That Will Affect Care: None marital status: Current Living Situation: Family Current Living Situation Comment: , daugher and father current occupational status: employed 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 Other Information That Helps Us Care for You: No Feels Safe at Home: Yes Safety Concerns: Feels Safe At This Time Assistive Devices: None Review of Systems Review of Systems: As per HPI, all 10 systems reviewed, all other ROS negative Physical Exam Physical Exam: GENERAL: Comfortable, slightly anxious, morbidly obese, no respiratory distress SKIN: Normal color, warm HEENT: Bespectacled, [place] palpebral conjunctivae, no ptosis, dry buccal mucosa, nasal cannula in place NECK : Supple, short neck, no tenderness CHEST : Decreased breath sounds,, no tenderness HEART : RRR, no obvious murmurs ABDOMEN: Some distention, nontender EXTREMITIES : Minimal LE swelling, no LE tenderness, no other conspicuous deformities noted NEUROLOGIC : Coherent, no facial asymmetry, no other gross focality Results & Data Results & Data ([facility]) Vital Signs (Past 12 Hours) Vital Signs Temp Pulse Pulse Resp BP Pulse Ox 03/10/21 00:04 89 20 92 03/09/21 22:30 84 22 112/74 91 03/09/21 22:00 84 21 144/99 H 91 03/09/21 18:00 36.7 C 99 H 18 158/106 H 90 Laboratory Results Laboratory Results WBC 2.83 K/uL (4.8-10.8) L 03/09/21 21:39 RBC 5.01 M/uL (4.2-5.4) 03/09/21 21:39 Hgb 13.1 g/dL (12.0-16.0) 03/09/21 21:39 Hct 41.8 % (37-47) 03/09/21 21:39 MCV 83.4 fL (80-100) 03/09/21 21:39 MCH 26.1 pg (25-34) 03/09/21 21:39 MCHC 31.3 g/dL (32-36) L 03/09/21 21:39 RDW Std Deviation 51.2 fL (36.4-46.3) H 03/09/21 21:39 RDW Coeff of Lucie 16.6 % (11.5-14.5) H 03/09/21 21:39 Plt Count 342 K/uL (130-400) 03/09/21 21:39 MPV 8.8 fL (7.4-10.4) 03/09/21 21:39 Immature Gran % (Auto) 0.0 % 03/09/21 21:39 Neut % (Auto) 65.0 % 03/09/21 21:39 Lymph % (Auto) 26.5 % 03/09/21 21:39 [place] % (Auto) 8.5 % 03/09/21 21:39 Eos % (Auto) 0.0 % 03/09/21 21:39 Baso % (Auto) 0.0 % 03/09/21 21:39 Neut # (Auto) 1.84 K/uL (1.4-6.5) 03/09/21 21:39 Lymph # (Auto) 0.75 K/uL (1.2-3.4) L 03/09/21 21:39 [place] # (Auto) 0.24 K/uL (0.11-0.59) 03/09/21 21:39 Eos # (Auto) 0.00 K/uL (0-0.5) 03/09/21 21:39 Baso # (Auto) 0.00 K/uL (0-0.2) 03/09/21 21:39 Immature Gran # (Auto) 0.00 K/uL (0.00-0.02) 03/09/21 21:39 PT 10.1 Seconds (9.0-12.0) 03/09/21 21:39 INR 1.0 (0.9-1.1) 03/09/21 21:39 Sodium 141 mmol/L (136-145) 03/09/21 21:39 Potassium 3.7 mmol/L (3.5-5.1) 03/09/21 21:39 Chloride 105 mmol/L (98-107) 09/27/21 21:39 Carbon Dioxide 27 mmol/L (21-32) 03/09/21 21:39 Anion Gap 9.0 (3-11) 03/09/21 21:39 BUN 16 mg/dl (7-18) 03/09/21 21:39 Creatinine 1.03 mg/dl (0.6-1.2) 03/09/21 21:39 Est Cr Clr Drug Dosing 107.0 ml/min 03/09/21 21:39 Est GFR ( Amer) 81.0 ml/min 03/09/21 21:39 Est GFR (Non-Af Amer) 69.9 ml/min 03/09/21 21:39 BUN/Creatinine Ratio 15.3 (10-20) 03/09/21 21:39 Glucose 119 mg/dl (70-99) H 03/09/21 21:39 Calcium 9.1 mg/dl (8.5-10.1) 03/09/21 21:39 Magnesium 2.2 mg/dl (1.8-2.4) 03/09/21 21:39 Total Bilirubin 0.3 mg/dl (0.2-1) 03/09/21 21:39 AST 29 U/L (15-37) 03/09/21 21:39 ALT 19 U/L (12-78) 03/09/21 21:39 Alkaline Phosphatase 73 U/L (45-117) 03/09/21 21:39 Troponin I < 0.015 ng/ml (0-0.045) 03/09/21 21:39 NT-Pro-B Natriuret Pep 36 pg/ml (0-450) 03/09/21 21:39 Total Protein 8.3 gm/dl (6.4-8.2) H 03/09/21 21:39 Albumin 3.3 gm/dl (3.4-5.0) L 03/09/21 21:39 Globulin 5.0 gm/dl (2.5-4.0) H 03/09/21 21:39 Albumin/Globulin Ratio 0.7 (0.9-2) L 03/09/21 21:39 HCG, Qual Negative (Negative) 03/09/21 21:39 COVID-19 Eval Order Covid19 at [facility] 03/09/21 21:39 SARS-CoV-2 (PCR) POSITIVE (Negative) A* 03/09/21 21:39 Diagnostic Findings Chest x-ray multifocal pneumonia EKG as per my interpretation :Rate 85, NSR, normal axis, T wave abnormalities inferior anterior septal leads
[2021-03-10 03:00] LABS: Appearance Urine Clear (Clear); Bilirubin Urine Negative (Negative); Blood Urine 3+ (Negative); Color Urine Dark Yellow; Epithelial Cell Urine Auto >30 /lpf (0-5); Glucose Urine UA Negative (Negative); Ketones Urine 1+ (Negative); Leukocyte Esterase Urine Negative (Negative); Nitrite Urine Negative (Negative); Protein Urine 2+ (Negative); Specific Gravity Urine 1.025 (1.000-1.030); Urobilinogen Urine Negative (Negative); pH Urine 5.5 (4.5-7.5)
[2021-03-10 03:08] LABS: Mucus Urine Present (None Prsent)
[2021-03-10] MEDS ORDERED: PROMETHAZINE HCL 12.5 MG in SODIUM CHLORIDE 0.9% 50 ML IV PRN (03:09)
[2021-03-10] MEDS ORDERED: GLUCAGON FOR INJ 1 MG VIAL SQ PRN (03:09)
[2021-03-10] MEDS ORDERED: GLUCOSE 10 TABS/TUBE PO PRN (03:09)
[2021-03-10] MEDS ORDERED: CARBOHYDRATES FOR HYPOGLYCEMIA PO PRN (03:09)
[2021-03-10] MEDS ORDERED: DEXTROSE 50% 50 ML SYRINGE IV PRN (03:09)
[2021-03-10] MEDS ORDERED: GLUCOSE 40% GEL 15 GM TUBE PO PRN (03:09)
[2021-03-10 03:10] LABS: Bacteria Urine Automated 1+ (Negative)
[2021-03-10] MEDS ORDERED: HYDROmorphone HCL 2 MG TAB PO PRN (03:18)
[2021-03-10] MEDS ORDERED: MECLIZINE HCL 25 MG TAB PO PRN (03:19)
[2021-03-10] MEDS ORDERED: POTASSIUM CHLORIDE 40 MEQ in SODIUM CHLORIDE 0.9% 1000ML 1,000 ML IV ONE (03:30)
[2021-03-10] MEDS: hydrOXYzine HCl 25 MG TAB PO SCH ×2 (04:38→20:55)
[2021-03-10] MEDS: INSULIN ASPART 100 UNITS/ML 3 ML PEN SC SCH ×5 (04:48→20:49)
[2021-03-10 06:34] LABS: Estimated Average Glucose 134 mg/dl; Hemoglobin A1C 6.3 % (4.5-5.6)
[2021-03-10] MEDS: INSULIN GLARGINE SOLOSTAR 100 UNITS/ML 3 ML PEN SC SCH (07:15)
[2021-03-10] MEDS: SUCRALFATE 1 GM TAB PO SCH ×4 (07:27→20:55)
[2021-03-10 08:15] LABS: Hematocrit (blood only) 38.4 % (37-47); Hemoglobin 12.3 g/dL (12.0-16.0); Lymphocytes # (auto) 0.62 K/uL (1.2-3.4); Lymphocytes % (auto) 27.3 %; Mean Corpuscular Hemoglobin 25.7 pg (25-34); Mean Corpuscular Volume 80.3 fL (80-100); Mean Platelet Volume 8.8 fL (7.4-10.4); Monocytes # (auto) 0.11 K/uL (0.11-0.59); Monocytes % (auto) 4.8 %; Neutrophils # (auto) 1.54 K/uL (1.4-6.5); Neutrophils % (auto) 67.9 %; Platelet Count 294 K/uL (130-400); RDW Coefficient of Variation 16.5 % (11.5-14.5); RDW Standard Deviation 49.6 fL (36.4-46.3); Red Blood Count 4.78 M/uL (4.2-5.4); White Blood Count 2.27 K/uL (4.8-10.8)
--- NOTE | 2021-03-10 08:25 | XRay Report ---
SINGLE VIEW CHEST CLINICAL HISTORY: Dyspnea. Hypoxia. Covid. FINDINGS: An AP, portable, upright chest radiograph is compared to study dated 10/07/2016. The heart i s top normal for projection. Multifocal airspace consolidation is seen throughout both lungs. No larg e pleural effusion or pneumothorax is seen. The bony thorax is grossly intact. IMPRESSION: Multifocal airspace consolidation is consistent with the reported history of a viral pneu monia. Radiographic follow-up to resolution is recommended. ACT 112: Negative or not required by law. Electronically signed by: Patel Ray M.D. 03/10/2021 8:24 AM
[2021-03-10] MEDS: LEVALBUTEROL TARTRATE 15 GM HFA.AER.AD INH SCH ×4 (08:30→19:48)
[2021-03-10] MEDS: buPROPion XL 150 MG TABCR PO SCH (08:39)
[2021-03-10] MEDS: busPIRone 5 MG TAB PO SCH (08:40)
[2021-03-10] MEDS: ENOXAPARIN INJ 40 MG/0.4 ML SYR SQ SCH (08:40)
[2021-03-10] MEDS: DICLOFENAC SODIUM 75 MG TABCR PO SCH ×2 (08:40→20:55)
[2021-03-10] MEDS: ESCITALOPRAM OXALATE 10 MG TAB PO SCH (08:41)
[2021-03-10] MEDS: lisinopril 10 MG TAB PO SCH (08:41)
[2021-03-10] MEDS: FAMOTIDINE 40 MG TABLET PO SCH (08:41)
[2021-03-10 08:45] LABS: Alanine Aminotransferase 20 U/L (12-78); Aspartate Aminotransferase 27 U/L (15-37); BUN Creatinine Ratio 20.5 (10-20); Blood Urea Nitrogen 17 mg/dl (7-18); Carbon Dioxide 23 mmol/L (21-32); Chloride 109 mmol/L (98-107); Creatinine Clr Calc Pharmacy 132.4 ml/min; Est GFR (African American) 105.1 ml/min; Est GFR (Non-African American) 90.7 ml/min; Glucose 157 mg/dl (70-99); Potassium 3.5 mmol/L (3.5-5.1); Sodium 140 mmol/L (136-145)
[2021-03-10 08:48] LABS: Alkaline Phosphatase 68 U/L (45-117); Bilirubin Direct < 0.1 mg/dl (0-0.2); Bilirubin,Total 0.2 mg/dl (0.2-1); Total Protein 7.8 gm/dl (6.4-8.2)
[2021-03-10] MEDS ORDERED: dexAMETHasone 6 MG in SYRINGE 0 ML IV SCH (09:00)
[2021-03-10] MEDS ORDERED: INSULIN GLARGINE SOLOSTAR 100 UNITS/ML 3 ML PEN SC SCH (09:00)
[2021-03-10] MEDS: ACETAMINOPHEN 325 MG TAB PO PRN (10:12)
--- NOTE | 2021-03-10 18:00 | Communication Note ---
Date of Service: March 10, 2021 Patient seen and and examined at bedside with her RN, patient reported one loose bowel movements in the morning, no new events overnight. Patient is currently requiring 5 L nasal cannula oxygen and denies any other review of symptoms. When revisited the discussion of initiating remdesivir on her, patient declined. We will continue to manage her in the line of Covid. Upon examination: GENERAL: Alert and oriented x3. NAD, on 5L HEENT: No pallor, no icterus. Pupils equal, round and reactive to light. Oral mucosa moist. NECK: No JVD, no neck masses. HEART: S1 and S2 heard. Regular rate and rhythm. No murmur, no gallop. RESPIRATORY SYSTEM: Normal AP diameter. No accessory muscle use. No wheezing, diminished breath sound, crackles not appreciated. ABDOMEN: Soft, bowel sounds present, nontender, no distention. CENTRAL NERVOUS SYSTEM: No facial droop. Speech is clear. Obeys simple commands. Moves extremities. EXTREMITIES: No edema, no erythema seen.
[2021-03-10] MEDS ORDERED: hydrOXYzine HCl 25 MG TAB PO SCH (21:00)
[2021-03-11] MEDS ORDERED: ALBUTEROL HFA 8 GM INHALER INH ONE (00:13)
[2021-03-11] MEDS ORDERED: ALBUTEROL HFA 8 GM INHALER INH PRN (00:13)
[2021-03-11] MEDS: LEVALBUTEROL TARTRATE 15 GM HFA.AER.AD INH SCH ×5 (00:58→19:53)
[2021-03-11] MEDS: dexAMETHasone 6 MG in SYRINGE 0 ML IV SCH (01:01)
[2021-03-11 01:21] LABS: Hematocrit (blood only) 39.5 % (37-47); Hemoglobin 12.5 g/dL (12.0-16.0); Immature Granulocytes # (auto) 0.01 K/uL (0.00-0.02); Immature Granulocytes % (auto) 0.2 %; Lymphocytes # (auto) 1.09 K/uL (1.2-3.4); Lymphocytes % (auto) 16.6 %; Mean Corpuscular Hemoglobin 26.3 pg (25-34); Mean Corpuscular Hgb Conc 31.6 g/dL (32-36); Mean Platelet Volume 8.6 fL (7.4-10.4); Monocytes # (auto) 0.44 K/uL (0.11-0.59); Monocytes % (auto) 6.7 %; Neutrophils # (auto) 5.04 K/uL (1.4-6.5); Neutrophils % (auto) 76.5 %; Platelet Count 344 K/uL (130-400); RDW Coefficient of Variation 16.5 % (11.5-14.5); RDW Standard Deviation 50.2 fL (36.4-46.3); Red Blood Count 4.76 M/uL (4.2-5.4); White Blood Count 6.58 K/uL (4.8-10.8)
[2021-03-11 01:24] LABS: Base Excess ABG 0.9 mEq/L (-9-1.8); HCO3 ABG 24 mmol/L (19-24); Oxygen Saturation ABG 89.2 % (90-95); PCO2 ABG 33 mmHg (35-46); PO2 ABG 54 mmHg (80-95); pH ABG 7.48 (7.35-7.45)
[2021-03-11 01:28] LABS: Allen Test POS (Pos)
[2021-03-11 01:39] LABS: BUN Creatinine Ratio 18.2 (10-20); Calcium 8.9 mg/dl (8.5-10.1); Creatinine Clr Calc Pharmacy 135.7 ml/min; Est GFR (African American) 108.3 ml/min; Est GFR (Non-African American) 93.4 ml/min; Magnesium 2.1 mg/dl (1.8-2.4); Potassium 3.6 mmol/L (3.5-5.1)
[2021-03-11 01:41] LABS: Albumin Globulin Ratio 0.6 (0.9-2); Bilirubin,Total 0.2 mg/dl (0.2-1); C Reactive Protein 3.5 mg/dl (0-0.29); Globulin 4.7 gm/dl (2.5-4.0); Total Protein 7.7 gm/dl (6.4-8.2)
[2021-03-11] MEDS ORDERED: POTASSIUM CHLORIDE PWD 20 MEQ PACK PO STA (02:00)
--- NOTE | 2021-03-11 02:00 | Communication Note ---
Date of Service: March 11, 2021 Notified by RN of increasing O2 requirement. O2 sats 89 on nonrebreather. Patient not in respiratory distress as per RN. AP Worsening hypoxemic respiratory failure secondary to COVID-19 pneumonia Continue Decadron Patient agreeable to Remdesivir initial dose. Pulmonary consult if without improvement. Will relay to AM provider.
[2021-03-11] MEDS ORDERED: REMDESIVIR 200 MG in SODIUM CHLORIDE 0.9% 210 ML IV ONE (02:15)
[2021-03-11] MEDS ORDERED: FUROSEMIDE 20 MG in SYRINGE 0 ML IV ONE (02:30)
[2021-03-11] MEDS ORDERED: SODIUM CHLORIDE 0.9% 10ML FLUSH IV ONE (04:30)
--- NOTE | 2021-03-11 06:27 | Electrocardiogram Report ---
Test Reason : Blood Pressure : / mmHG Vent. Rate : 083 BPM Atrial Rate : 083 BPM P-R Int : 138 ms QRS Dur : 084 ms QT Int : 376 ms P-R-T Axes : 042 033 -02 degrees QTc Int : 441 ms Poor data quality, interpretation may be adversely affected Normal sinus rhythm Nonspecific ST and T wave abnormality Abnormal ECG When compared with ECG of 03-JUN-2020 10:03, Nonspecific T wave abnormality now evident in Anterior leads Confirmed by Nawaf Henry ([id number]) on 03/11/2021 6:27:16 AM Referred By: REFERRED SELF Confirmed By:Nawaf Henry
--- NOTE | 2021-03-11 07:28 | XRay Report ---
XR chest 1V portable INDICATION: Hypoxia. TECHNIQUE: Single frontal radiograph of the chest was obtained. Comparison: Comparison is made to chest one view 03/09/2021 FINDINGS: No lines and tubes are seen. Mediastinal silhouette is stably enlarged. Multifocal airspace opacities are seen, stable to increased from prior exam. No evidence of pleural effusion or pneumothorax. IMPRESSION: Multifocal airspace disease consistent with history of viral pneumonia. ACT 112: Negative or not required by law. Electronically signed by: Mike Jacobs M.D. 03/11/2021 7:27 AM
[2021-03-11] MEDS: buPROPion XL 150 MG TABCR PO SCH (08:14)
[2021-03-11] MEDS: lisinopril 10 MG TAB PO SCH (08:14)
[2021-03-11] MEDS: FAMOTIDINE 40 MG TABLET PO SCH (08:14)
[2021-03-11] MEDS: SUCRALFATE 1 GM TAB PO SCH ×4 (08:14→21:02)
[2021-03-11] MEDS: busPIRone 5 MG TAB PO SCH (08:14)
[2021-03-11] MEDS: ESCITALOPRAM OXALATE 10 MG TAB PO SCH (08:14)
[2021-03-11] MEDS: DICLOFENAC SODIUM 75 MG TABCR PO SCH ×2 (08:14→22:29)
[2021-03-11] MEDS: ENOXAPARIN INJ 40 MG/0.4 ML SYR SQ SCH (08:15)
[2021-03-11] MEDS: INSULIN ASPART 100 UNITS/ML 3 ML PEN SC SCH ×4 (08:18→21:31)
[2021-03-11] MEDS: INSULIN GLARGINE SOLOSTAR 100 UNITS/ML 3 ML PEN SC SCH (08:47)
[2021-03-11] MEDS: ACETAMINOPHEN 325 MG TAB PO PRN (11:45)
[2021-03-11] MEDS ORDERED: POTASSIUM CHLORIDE CRTAB 20 MEQ TABCR PO STA (13:28)
[2021-03-11] MEDS ORDERED: FUROSEMIDE 40 MG in SYRINGE 0 ML IV ONE (14:00)
--- NOTE | 2021-03-11 14:51 | Hospitalist Progress Note ---
Date of Service March 11, 2021 Assessment & Plan (1) Acute hypoxemic respiratory failure: Plan: Secondary to severe COVID-19 pneumonia Did not receive any vaccination for COVID-19 Received dexamethasone on admission and got first dose of remdesivir last night and will finish the course Requiring high flow oxygen to maintain saturation with FiO2 of 65% and flow rate 30 L/min Clinically stable Will provide spirometer and flutter valve Prone position as tolerated We will keep her on the host/hostess head side Hypertension, slight elevated Anxiety/mood disorder, at baseline Migraine attack secondary to illness DM2 on oral medications, well-controlled as of recent hemoglobin A1c of 5.19 November 2020 Basal insulin, ISS BG goal 1 10-1 40, carb count coverage, update hemoglobin A1c DVT prophylaxis per Lovenox subcu Full code Admission and Anticipated Discharge Date Admission Date: March 10, 2021 Subjective 03/11/2021 The patient was seen and examined in medical telemetry unit She has been requiring high flow oxygen to maintain saturation and received remdesivir yesterday Feels shortness of breath with minimal exertion but better at rest Review of Systems Review of Systems: All systems reviewed and are unremarkable except as noted below Physical Exam Physical Exam: Lying in bed comfortably Constitutional: well developed, well nourished, + ill appearing and + obese Eyes: PERRL, conjunctivae normal, anicteric sclerae ENMT: external ear and nose normal, oropharynx normal Neck: trachea midline, no thyromegaly Respiratory: + cough; no respiratory distress Auscultation: + diminished lung sounds and + crackles (At the bases) Cardiovascular: Rate/Rhythm: regular rate and regular rhythm; not tachycardic Heart Sounds: normal S1 and normal S2; no murmur Extremities: + edema (Trace edema bilaterally) Gastrointestinal (Abdomen): Inspection/Auscultation: normal bowel sounds; abdomen not distended Percussion/Palpation: abdomen soft; abdomen nontender Musculoskeletal: No acute arthritis in any joint Neurologic: Alert, awake and oriented x3 Results & Data Results & Data ([facility]) Vital Signs (Past 12 Hours) Vital Signs Temp Pulse Pulse Resp BP Pulse Ox Pulse Ox 03/11/21 11:35 80 18 91 03/11/21 09:40 72 90 03/11/21 08:49 100 H 22 92 03/11/21 08:03 74 18 91 03/11/21 07:36 37.0 C 70 20 116/76 91 03/11/21 06:26 95 03/11/21 04:47 94 03/11/21 04:01 91 03/11/21 03:16 36.7 C 91 H 22 89 L 03/11/21 03:09 90 Laboratory Results Short CBC 03/11/21 Range/Units 00:54 WBC 6.58 (4.8-10.8) K/uL Hgb 12.5 (12.0-16.0) g/dL Hct 39.5 (37-47) % Plt Count 344 (130-400) K/uL BMP 03/11/21 00:54 Sodium 139 Potassium 3.6 Chloride 110 H Carbon Dioxide 27 BUN 15 Creatinine 0.81 Glucose 131 H Calcium 8.9 Liver Function 03/11/21 Range/Units 00:54 Total Bilirubin 0.2 (0.2-1) mg/dl AST 34 (15-37) U/L ALT 22 (12-78) U/L Alkaline Phosphatase 65 (45-117) U/L Albumin 3.0 L (3.4-5.0) gm/dl Medications Administered Current Inpatient Medications Acetaminophen (Acetaminophen 325 Mg Tab) 650 mg PO Q4H PRN PRN Reason: Pain or Fever Stop: 04/09/21 03:08 Last Admin: 03/11/21 11:45 Dose: 650 mg Documented by: Albuterol (Albuterol Hfa 8 Gm Inhaler) 2 puffs INH Q2R PRN PRN Reason: sob/wheeze Stop: 04/10/21 00:12 Bupropion HCl ([facility]upropion Xl 150 Mg Tabcr) [facility] [place]: 04/09/21 08:59 Last Admin: 03/11/21 08:14 Dose: 150 mg Documented by: Buspirone HCl (Buspirone 5 Mg Tab) 10 mg PO QAM [facility] Stop: 04/09/21 08:59 Last Admin: 03/11/21 08:14 Dose: 10 mg Documented by: Clonazepam (Clonazepam 1 Mg Tab) 1 mg PO TID PRN PRN Reason: Anxiety Stop: 04/09/21 03:08 Dextrose (Dextrose 50% 50 Ml Syringe) 25 - 50 ml IV UD PRN; Protocol PRN Reason: Hypoglycemia Protocol Stop: 04/09/21 03:08 Diclofenac Sodium (Diclofenac Sodium 75 Mg Tabcr) 75 mg PO BID [facility] Stop: 04/09/21 08:59 Last Admin: 03/11/21 08:14 Dose: 75 mg Documented by: Enoxaparin Sodium (Enoxaparin Inj 40 Mg/0.4 Ml Syr) 40 mg SQ QAM [facility] Stop: 04/09/21 08:59 Last Admin: 03/11/21 08:15 Dose: 40 mg Documented by: Escitalopram Oxalate (Escitalopram Oxalate 10 Mg Tab) 30 mg PO QAM [facility] Stop: 04/09/21 08:59 Last Admin: 03/11/21 08:14 Dose: 30 mg Documented by: Famotidine (Famotidine 40 Mg Tablet) 40 mg PO QAM [facility] Stop: 04/09/21 08:59 Last Admin: 03/11/21 08:14 Dose: 40 mg Documented by: Glucagon (Glucagon For Inj 1 Mg Vial) 1 mg SQ UD PRN; Protocol PRN Reason: Hypoglycemia Protocol Stop: 04/09/21 03:08 Glucose (Glucose 10 Tabs/Tube) 4 - 8 tabs PO UD PRN; Protocol PRN Reason: Hypoglycemia Protocol Stop: 04/09/21 03:08 Glucose (Glucose 40% Gel 15 Gm Tube) 15 - 30 gm PO UD PRN; Protocol PRN Reason: Hypoglycemia Protocol Stop: 04/09/21 03:08 Hydromorphone HCl (Hydromorphone Hcl 2 Mg Tab) 4 mg PO QID PRN PRN Reason: severe headache Stop: 03/24/21 03:17 Hydroxyzine HCl (Hydroxyzine Hcl 25 Mg Tab) 25 mg PO HS [facility] Stop: 04/09/21 04:14 Last Admin: 03/10/21 20:55 Dose: 25 mg Documented by: Promethazine HCl 12.5 mg/ (Sodium Chloride) 50.5 mls @ 202 mls/hr IV Q6H PRN PRN Reason: Nausea And Vomiting Stop: 04/09/21 03:08 Last Infusion: 03/11/21 02:02 Dose: Infused Documented by: Dexamethasone 6 mg/ Syringe 1.5 mls @ 1 mls/min IV DAILY [facility] Stop: 04/10/21 00:29 Last Admin: 03/11/21 01:01 Dose: 1 mls/min Documented by: Remdesivir 100 mg/ Sodium (Chloride) 250 mls @ 250 mls/hr IV Q24H [facility]; Protocol Stop: 03/14/21 20:59 Insulin Aspart (Insulin Aspart 100 Units/Ml 3 Ml Pen) 0 units SC [facility] Stop: 04/09/21 03:29 Last Admin: 03/11/21 12:44 Dose: Not Given Documented by: Insulin Glargine (Insulin Glargine Solostar 100 Units/Ml 3 Ml Pen) 5 units SC DAILY [facility] Stop: 04/09/21 05:59 Last Admin: 03/11/21 08:47 Dose: 5 units Documented by: Levalbuterol HCl (Levalbuterol Tartrate 15 Gm Hfa.Aer.Ad) 2 puffs INH QIDR [facility] Stop: 04/09/21 06:59 Last Admin: 03/11/21 11:34 Dose: 2 puffs Documented by: Lisinopril (Lisinopril 10 Mg Tab) 10 mg PO QAM [facility] Stop: 04/09/21 08:59 Last Admin: 03/11/21 08:14 Dose: 10 mg Documented by: Meclizine HCl (Meclizine Hcl 25 Mg Tab) 25 mg PO DAILY PRN PRN Reason: Vertigo Stop: 04/09/21 03:18 Miscellaneous (Carbohydrates For Hypoglycemia ) 15 - 30 gm PO UD PRN PRN Reason: Hypoglycemia Protocol Stop: 04/09/21 03:08 Sodium Chloride (Sodium Chloride 0.9% 10ml Flush) 30 ml IV Q24H [facility] Stop: 03/15/21 21:01 Sucralfate (Sucralfate 1 Gm Tab) 1 gm PO ACHS [facility] Stop: 04/09/21 07:29 Last Admin: 03/11/21 11:46 Dose: 1 gm Documented by:
[2021-03-11] MEDS: REMDESIVIR 100 MG in SODIUM CHLORIDE 0.9% 230 ML IV SCH (21:23)
[2021-03-11] MEDS: SODIUM CHLORIDE 0.9% 10ML FLUSH IV SCH (21:30)
[2021-03-11] MEDS: hydrOXYzine HCl 25 MG TAB PO SCH (22:29)
[2021-03-12] MEDS: clonazePAM 1 MG TAB PO PRN ×2 (03:49→20:56)
[2021-03-12] MEDS: buPROPion XL 150 MG TABCR PO SCH (08:00)
[2021-03-12] MEDS: ESCITALOPRAM OXALATE 10 MG TAB PO SCH (08:00)
[2021-03-12] MEDS: DICLOFENAC SODIUM 75 MG TABCR PO SCH ×2 (08:00→20:56)
[2021-03-12] MEDS: busPIRone 5 MG TAB PO SCH (08:01)
[2021-03-12] MEDS: SUCRALFATE 1 GM TAB PO SCH ×4 (08:01→20:56)
[2021-03-12] MEDS: ENOXAPARIN INJ 40 MG/0.4 ML SYR SQ SCH (08:01)
[2021-03-12] MEDS: lisinopril 10 MG TAB PO SCH (08:01)
[2021-03-12] MEDS: FAMOTIDINE 40 MG TABLET PO SCH (08:01)
[2021-03-12] MEDS: LEVALBUTEROL TARTRATE 15 GM HFA.AER.AD INH SCH ×4 (08:06→19:40)
[2021-03-12] MEDS: dexAMETHasone 6 MG in SYRINGE 0 ML IV SCH (08:18)
[2021-03-12] MEDS: INSULIN GLARGINE SOLOSTAR 100 UNITS/ML 3 ML PEN SC SCH (09:33)
[2021-03-12] MEDS: INSULIN ASPART 100 UNITS/ML 3 ML PEN SC SCH ×4 (09:33→20:21)
[2021-03-12 09:44] LABS: Albumin Level 2.7 gm/dl (3.4-5.0); BUN Creatinine Ratio 39.1 (10-20); Calcium 8.6 mg/dl (8.5-10.1); Creatinine Clr Calc Pharmacy 144.6 ml/min; Est GFR (Non-African American) 100.9 ml/min; Magnesium 2.2 mg/dl (1.8-2.4); Potassium 3.4 mmol/L (3.5-5.1)
[2021-03-12 09:45] LABS: Albumin Globulin Ratio 0.6 (0.9-2); Bilirubin,Total 0.3 mg/dl (0.2-1); Globulin 4.7 gm/dl (2.5-4.0); Phosphorus 3.8 mg/dl (2.5-4.9); Total Protein 7.4 gm/dl (6.4-8.2)
[2021-03-12] MEDS ORDERED: POTASSIUM CHLORIDE CRTAB 20 MEQ TABCR PO STA ×2 (13:11→14:13)
[2021-03-12] MEDS ORDERED: FUROSEMIDE 60 MG in SYRINGE 0 ML IV ONE (14:13)
[2021-03-12] MEDS ORDERED: FUROSEMIDE 40 MG/4 ML VIAL IV ONE (14:30)
--- NOTE | 2021-03-12 15:35 | Hospitalist Progress Note ---
Date of Service March 12, 2021 Assessment & Plan (1) Acute hypoxemic respiratory failure: Plan: Secondary to severe COVID-19 pneumonia Did not receive any vaccination for COVID-19 Received dexamethasone on admission and got first dose of remdesivir last night and will finish the course Requiring high flow oxygen to maintain saturation with FiO2 of 65% and flow rate 30 L/min Clinically stable Will provide spirometer and flutter valve Not being any better today She is complying with prone positioning Will give more Lasix today and potassium supplement Hypertension, slight elevated Anxiety/mood disorder, at baseline Migraine attack secondary to illness DM2 on oral medications, well-controlled as of recent hemoglobin A1c of 5.19 November 2020 Basal insulin, ISS BG goal 1 10-1 40, carb count coverage, update hemoglobin A1c DVT prophylaxis per Lovenox subcu Full code Admission and Anticipated Discharge Date Admission Date: March 10, 2021 Subjective 03/11/2021 The patient was seen and examined in medical telemetry unit She has been requiring high flow oxygen to maintain saturation and received remdesivir yesterday Feels shortness of breath with minimal exertion but better at rest 03/12/2029 The patient was seen and examined in medical telemetry unit She has been requiring more oxygen to maintain saturation She is complying with prone positioning Review of Systems Review of Systems: All systems reviewed and are unremarkable except as noted below Respiratory: Moderate shortness of breath at rest Physical Exam Physical Exam: Lying in bed in prone position with moderate shortness of breath Constitutional: well developed, well nourished, + ill appearing and + obese Eyes: PERRL, conjunctivae normal, anicteric sclerae ENMT: external ear and nose normal, oropharynx normal Neck: trachea midline, no thyromegaly Respiratory: + cough; no respiratory distress Auscultation: + diminished lung sounds and + crackles (At the bases) Cardiovascular: Rate/Rhythm: regular rate and regular rhythm; not tachycardic Heart Sounds: normal S1 and normal S2; no murmur Extremities: + edema (Trace edema bilaterally) Gastrointestinal (Abdomen): Inspection/Auscultation: normal bowel sounds; abdomen not distended Percussion/Palpation: abdomen soft; abdomen nontender Musculoskeletal: No acute arthritis in any joint Neurologic: Alert, awake and oriented x3. Generally weak Results & Data Results & Data ([facility]) Vital Signs (Past 12 Hours) Vital Signs Temp Pulse Pulse Resp BP Pulse Ox Pulse Ox 03/12/21 12:22 37.1 C 81 20 120/79 94 03/12/21 11:03 78 18 94 03/12/21 09:22 63 95 03/12/21 09:00 90 03/12/21 08:07 77 20 94 03/12/21 08:06 77 20 94 03/12/21 07:48 37.1 C 69 16 119/75 94 Laboratory Results BMP 03/12/21 08:08 Sodium 144 Potassium 3.4 L Chloride 109 H Carbon Dioxide 27 BUN 30 H D Creatinine 0.76 Glucose 95 Calcium 8.6 Liver Function 03/12/21 Range/Units 08:08 Total Bilirubin 0.3 (0.2-1) mg/dl AST 51 H (15-37) U/L ALT 24 (12-78) U/L Alkaline Phosphatase 65 (45-117) U/L Albumin 2.7 L (3.4-5.0) gm/dl Medications Administered Current Inpatient Medications Acetaminophen (Acetaminophen 325 Mg Tab) 650 mg PO Q4H PRN PRN Reason: Pain or Fever Stop: 04/09/21 03:08 Last Admin: 03/11/21 11:45 Dose: 650 mg Documented by: Albuterol (Albuterol Hfa 8 Gm Inhaler) 2 puffs INH Q2R PRN PRN Reason: sob/wheeze Stop: 04/10/21 00:12 Bupropion HCl (Bupropion Xl 150 Mg Tabcr) 150 mg PO QAM [facility] Stop: 04/09/21 08:59 Last Admin: 03/12/21 08:00 Dose: 150 mg Documented by: Buspirone HCl (Buspirone 5 Mg Tab) 10 mg PO QAM [facility] Stop: 04/09/21 08:59 Last Admin: 03/12/21 08:01 Dose: 10 mg Documented by: Clonazepam (Clonazepam 1 Mg Tab) 1 mg PO TID PRN PRN Reason: Anxiety Stop: 04/09/21 03:08 Last Admin: 03/12/21 03:49 Dose: 1 mg Documented by: Dextrose (Dextrose 50% 50 Ml Syringe) 25 - 50 ml IV UD PRN; Protocol PRN Reason: Hypoglycemia Protocol Stop: 04/09/21 03:08 Diclofenac Sodium (Diclofenac Sodium 75 Mg Tabcr) 75 mg PO BID [facility] Stop: 04/09/21 08:59 Last Admin: 03/12/21 08:00 Dose: 75 mg Documented by: Enoxaparin Sodium (Enoxaparin Inj 40 Mg/0.4 Ml Syr) 40 mg SQ QAM [facility] Stop: 04/09/21 08:59 Last Admin: 03/12/21 08:01 Dose: 40 mg Documented by: Escitalopram Oxalate (Escitalopram Oxalate 10 Mg Tab) 30 mg PO QAM [facility] Stop: 04/09/21 08:59 Last Admin: 03/12/21 08:00 Dose: 30 mg Documented by: Famotidine (Famotidine 40 Mg Tablet) 40 mg PO QAM [facility] Stop: 04/09/21 08:59 Last Admin: 03/12/21 08:01 Dose: 40 mg Documented by: Glucagon (Glucagon For Inj 1 Mg Vial) 1 mg SQ UD PRN; Protocol PRN Reason: Hypoglycemia Protocol Stop: 04/09/21 03:08 Glucose (Glucose 10 Tabs/Tube) 4 - 8 tabs PO UD PRN; Protocol PRN Reason: Hypoglycemia Protocol Stop: 04/09/21 03:08 Glucose (Glucose 40% Gel 15 Gm Tube) 15 - 30 gm PO UD PRN; Protocol PRN Reason: Hypoglycemia Protocol Stop: 04/09/21 03:08 Hydromorphone HCl (Hydromorphone Hcl 2 Mg Tab) 4 mg PO QID PRN PRN Reason: severe headache Stop: 03/24/21 03:17 Hydroxyzine HCl (Hydroxyzine Hcl 25 Mg Tab) 25 mg PO HS [facility] Stop: 04/09/21 04:14 Last Admin: 03/11/21 22:29 Dose: 25 mg Documented by: Promethazine HCl 12.5 mg/ (Sodium Chloride) 50.5 mls @ 202 mls/hr IV Q6H PRN PRN Reason: Nausea And Vomiting Stop: 04/09/21 03:08 Last Infusion: 03/11/21 02:02 Dose: Infused Documented by: Dexamethasone 6 mg/ Syringe 1.5 mls @ 1 mls/min IV DAILY [facility] Stop: 04/10/21 00:29 Last Admin: 03/12/21 08:18 Dose: 1 mls/min Documented by: Remdesivir 100 mg/ Sodium (Chloride) 250 mls @ 250 mls/hr IV Q24H [facility]; Protocol Stop: 03/14/21 20:59 Last Infusion: 03/11/21 23:53 Dose: Infused Documented by: Insulin Aspart (Insulin Aspart 100 Units/Ml 3 Ml Pen) 0 units SC [facility] Stop: 04/09/21 03:29 Last Admin: 03/12/21 12:04 Dose: Not Given Documented by: Insulin Glargine (Insulin Glargine Solostar 100 Units/Ml 3 Ml Pen) 5 units SC DAILY [facility] Stop: 04/09/21 05:59 Last Admin: 03/12/21 09:33 Dose: 5 units Documented by: Levalbuterol HCl (Levalbuterol Tartrate 15 Gm Hfa.Aer.Ad) 2 puffs INH QIDR [facility] Stop: 04/09/21 06:59 Last Admin: 03/12/21 11:00 Dose: 2 puffs Documented by: Lisinopril ([facility] 10 Mg Tab) [facility] [place] Stop: 04/09/21 08:59 Last Admin: 03/12/21 08:01 Dose: 10 mg Documented by: Meclizine HCl (Meclizine Hcl 25 Mg Tab) 25 mg PO DAILY PRN PRN Reason: Vertigo Stop: 04/09/21 03:18 Miscellaneous (Carbohydrates For Hypoglycemia ) 15 - 30 gm PO UD PRN PRN Reason: Hypoglycemia Protocol Stop: 04/09/21 03:08 Sodium Chloride (Sodium Chloride 0.9% 10ml Flush) 30 ml IV Q24H [facility] Stop: 03/15/21 21:01 Last Admin: 03/11/21 21:30 Dose: 30 ml Documented by: Sucralfate (Sucralfate 1 Gm Tab) 1 gm PO ACHS [facility] Stop: 04/09/21 07:29 Last Admin: 03/12/21 12:04 Dose: Not Given Documented by:
[2021-03-12] MEDS: hydrOXYzine HCl 25 MG TAB PO SCH (20:56)
[2021-03-12] MEDS: REMDESIVIR 100 MG in SODIUM CHLORIDE 0.9% 230 ML IV SCH (20:57)
[2021-03-12] MEDS: SODIUM CHLORIDE 0.9% 10ML FLUSH IV SCH (20:59)
[2021-03-13 07:58] LABS: BUN Creatinine Ratio 37.9 (10-20); C Reactive Protein 8.88 mg/dl (0-0.29); Calcium 8.8 mg/dl (8.5-10.1); Est GFR (African American) 118.9 ml/min; Est GFR (Non-African American) 102.5 ml/min; Potassium 3.8 mmol/L (3.5-5.1)
[2021-03-13] MEDS: LEVALBUTEROL TARTRATE 15 GM HFA.AER.AD INH SCH ×4 (08:09→19:29)
[2021-03-13] MEDS: SUCRALFATE 1 GM TAB PO SCH ×5 (08:39→21:13)
[2021-03-13] MEDS: buPROPion XL 150 MG TABCR PO SCH (08:39)
[2021-03-13] MEDS: busPIRone 5 MG TAB PO SCH (08:39)
[2021-03-13] MEDS: ENOXAPARIN INJ 40 MG/0.4 ML SYR SQ SCH (08:40)
[2021-03-13] MEDS: ESCITALOPRAM OXALATE 10 MG TAB PO SCH (08:40)
[2021-03-13] MEDS: DICLOFENAC SODIUM 75 MG TABCR PO SCH ×2 (08:40→21:06)
[2021-03-13] MEDS: dexAMETHasone 6 MG in SYRINGE 0 ML IV SCH (08:40)
[2021-03-13] MEDS: lisinopril 10 MG TAB PO SCH (08:41)
[2021-03-13] MEDS: FAMOTIDINE 40 MG TABLET PO SCH (08:41)
[2021-03-13] MEDS: INSULIN ASPART 100 UNITS/ML 3 ML PEN SC SCH ×4 (09:04→21:07)
[2021-03-13] MEDS: INSULIN GLARGINE SOLOSTAR 100 UNITS/ML 3 ML PEN SC SCH (09:05)
--- NOTE | 2021-03-13 16:25 | Hospitalist Progress Note ---
Date of Service March 13, 2021 Assessment & Plan (1) Acute hypoxemic respiratory failure: Plan: Secondary to severe COVID-19 pneumonia Did not receive any vaccination for COVID-19 Received dexamethasone on admission and got first dose of remdesivir last night and will finish the course Requiring high flow oxygen to maintain saturation with FiO2 of 65% and flow rate 30 L/min Clinically stable Will provide spirometer and flutter valve Not being any better today She is complying with prone positioning Will give more Lasix today and potassium supplement Blood pressure remains low at 100 systolic and will not give Lasix today Hypertension, slight elevated Anxiety/mood disorder, at baseline Migraine attack secondary to illness DM2 on oral medications, well-controlled as of recent hemoglobin A1c of 5.19 November 2020 Basal insulin, ISS BG goal 1 10-1 40, carb count coverage, update hemoglobin A1c-6.3 as of 03/09/2021 DVT prophylaxis per Lovenox subcu Full code Admission and Anticipated Discharge Date Admission Date: March 10, 2021 Subjective 03/11/2021 The patient was seen and examined in medical telemetry unit She has been requiring high flow oxygen to maintain saturation and received remdesivir yesterday Feels shortness of breath with minimal exertion but better at rest 03/12/2029 The patient was seen and examined in medical telemetry unit She has been requiring more oxygen to maintain saturation She is complying with prone positioning 03/13/2021 The patient was seen and examined in medical telemetry unit and in the Covid room Her condition has not improved and is still requiring 40 L of oxygen with 100% FiO2 to maintain saturation Review of Systems Review of Systems: All systems reviewed and are unremarkable except as noted below Respiratory: Moderate shortness of breath at rest Physical Exam Physical Exam: Lying in bed in prone position with moderate shortness of breath Constitutional: well developed, well nourished, + ill appearing and + obese Eyes: PERRL, conjunctivae normal, anicteric sclerae ENMT: external ear and nose normal, oropharynx normal Neck: trachea midline, no thyromegaly Respiratory: + cough; no respiratory distress Auscultation: + diminished lung sounds and + crackles (At the bases) Cardiovascular: Rate/Rhythm: regular rate and regular rhythm; not tachycardic Heart Sounds: normal S1 and normal S2; no murmur Extremities: + edema (T race edema bilaterally) Gastrointestinal (Abdomen): Inspection/Auscultation: normal bowel sounds; abdomen not distended Percussion/Palpation: abdomen soft; abdomen nontender Results & Data Results & Data ([facility]) Vital Signs (Past 12 Hours) Vital Signs Temp Pulse Pulse Resp BP Pulse Ox 03/13/21 15:42 90 20 90 03/13/21 15:40 58 L 03/13/21 12:29 37 C 73 18 100/54 L 92 03/13/21 12:02 72 20 88 L 03/13/21 12:01 72 20 88 L 03/13/21 08:20 36.9 C 70 18 114/76 93 03/13/21 08:09 78 22 92 03/13/21 07:41 51 L Laboratory Results BMP 03/13/21 06:55 Sodium 143 Potassium 3.8 Chloride 110 H Carbon Dioxide 29 BUN 28 H Creatinine 0.75 Glucose 119 H Calcium 8.8 Medications Administered Current Inpatient Medications Acetaminophen (Acetaminophen 325 Mg Tab) 650 mg PO Q4H PRN PRN Reason: Pain or Fever Stop: 04/09/21 03:08 Last Admin: 03/11/21 11:45 Dose: 650 mg Documented by: Albuterol (Albuterol Hfa 8 Gm Inhaler) 2 puffs INH Q2R PRN PRN Reason: sob/wheeze Stop: 04/10/21 00:12 Bupropion HCl (Bupropion Xl 150 Mg Tabcr) 150 mg PO QAM [facility] Stop: 04/09/21 08:59 Last Admin: 03/13/21 08:39 Dose: 150 mg Documented by: Buspirone HCl (Buspirone 5 Mg Tab) 10 mg PO QAM [facility] Stop: 04/09/21 08:59 Last Admin: 03/13/21 08:39 Dose: 10 mg Documented by: Clonazepam (Clonazepam 1 Mg Tab) 1 mg PO TID PRN PRN Reason: Anxiety Stop: 04/09/21 03:08 Last Admin: 03/12/21 20:56 Dose: 1 mg Documented by: Dextrose (Dextrose 50% 50 Ml Syringe) 25 - 50 ml IV UD PRN; Protocol PRN Reason: Hypoglycemia Protocol Stop: 04/09/21 03:08 Diclofenac Sodium (Diclofenac Sodium 75 Mg Tabcr) 75 mg PO BID [facility] Stop: 04/09/21 08:59 Last Admin: 03/13/21 08:40 Dose: 75 mg Documented by: Enoxaparin Sodium (Enoxaparin Inj 40 Mg/0.4 Ml Syr) 40 mg SQ QAM [facility] Stop: 04/09/21 08:59 Last Admin: 03/13/21 08:40 Dose: 40 mg Documented by: Escitalopram Oxalate (Escitalopram Oxalate 10 Mg Tab) 30 mg PO QAM [facility] Stop: 04/09/21 08:59 Last Admin: 03/13/21 08:40 Dose: 30 mg Documented by: Famotidine (Famotidine 40 Mg Tablet) 40 mg PO QAM [facility] Stop: 04/09/21 08:59 Last Admin: 03/13/21 08:41 Dose: 40 mg Documented by: Glucagon (Glucagon For Inj 1 Mg Vial) 1 mg SQ UD PRN; Protocol PRN Reason: Hypoglycemia Protocol Stop: 04/09/21 03:08 Glucose (Glucose 10 Tabs/Tube) 4 - 8 tabs PO UD PRN; Protocol PRN Reason: Hypoglycemia Protocol Stop: 04/09/21 03:08 Glucose (Glucose 40% Gel 15 Gm Tube) 15 - 30 gm PO UD PRN; Protocol PRN Reason: Hypoglycemia Protocol Stop: 04/09/21 03:08 Hydromorphone HCl (Hydromorphone Hcl 2 Mg Tab) 4 mg PO QID PRN PRN Reason: severe headache Stop: 03/24/21 03:17 Hydroxyzine HCl (Hydroxyzine Hcl 25 Mg Tab) 25 mg PO HS [facility] Stop: 04/09/21 04:14 Last Admin: 03/12/21 20:56 Dose: 25 mg Documented by: Promethazine HCl 12.5 mg/ (Sodium Chloride) 50.5 mls @ 202 mls/hr IV Q6H PRN PRN Reason: Nausea And Vomiting Stop: 04/09/21 03:08 Last Infusion: 03/11/21 02:02 Dose: Infused Documented by: Dexamethasone 6 mg/ Syringe 1.5 mls @ 1 mls/min IV DAILY [facility] Stop: 04/10/21 00:29 Last Admin: 03/13/21 08:40 Dose: 1 mls/min Documented by: Remdesivir 100 mg/ Sodium (Chloride) 250 mls @ 250 mls/hr IV Q24H [facility]; Protocol Stop: 03/14/21 20:59 Last Infusion: 03/12/21 22:04 Dose: Infused Documented by: Insulin Aspart (Insulin Aspart 100 Units/Ml 3 Ml Pen) 0 units SC ACHS [facility] Stop: 04/09/21 03:29 Last Admin: 03/13/21 12:27 Dose: 2 units Documented by: Insulin Glargine (Insulin Glargine Solostar 100 Units/Ml 3 Ml Pen) 5 units SC DAILY [facility] Stop: 04/09/21 05:59 Last Admin: 03/13/21 09:05 Dose: 5 units Documented by: Levalbuterol HCl (Levalbuterol Tartrate 15 Gm Hfa.Aer.Ad) 2 puffs INH QIDR [facility] Stop: 04/09/21 06:59 Last Admin: 03/13/21 15:40 Dose: 2 puffs Documented by: Lisinopril (Lisinopril 10 Mg Tab) 10 mg PO QAM [facility] Stop: 04/09/21 08:59 Last Admin: 03/13/21 08:41 Dose: 10 mg Documented by: Meclizine HCl (Meclizine Hcl 25 Mg Tab) 25 mg PO DAILY PRN PRN Reason: Vertigo Stop: 04/09/21 03:18 Miscellaneous (Carbohydrates For Hypoglycemia ) 15 - 30 gm PO UD PRN PRN Reason: Hypoglycemia Protocol Stop: 04/09/21 03:08 Sodium Chloride (Sodium Chloride 0.9% 10ml Flush) 30 ml IV Q24H [facility] Stop: 03/15/21 21:01 Last Admin: 03/12/21 20:59 Dose: 30 ml Documented by: Sucralfate (Sucralfate 1 Gm Tab) 1 gm PO ACHS [facility] Stop: 04/09/21 07:29 Last Admin: 03/13/21 12:28 Dose: Not Given Documented by:
[2021-03-13] MEDS: REMDESIVIR 100 MG in SODIUM CHLORIDE 0.9% 230 ML IV SCH (21:00)
[2021-03-13] MEDS: hydrOXYzine HCl 25 MG TAB PO SCH (21:06)
[2021-03-13] MEDS: clonazePAM 1 MG TAB PO PRN (22:09)
[2021-03-13] MEDS: SODIUM CHLORIDE 0.9% 10ML FLUSH IV SCH (22:09)
[2021-03-14] MEDS: LEVALBUTEROL TARTRATE 15 GM HFA.AER.AD INH SCH ×4 (08:04→19:10)
[2021-03-14] MEDS: SUCRALFATE 1 GM TAB PO SCH ×4 (08:26→21:39)
[2021-03-14] MEDS: buPROPion XL 150 MG TABCR PO SCH (08:26)
[2021-03-14] MEDS: dexAMETHasone 6 MG in SYRINGE 0 ML IV SCH (08:27)
[2021-03-14] MEDS: DICLOFENAC SODIUM 75 MG TABCR PO SCH ×2 (08:27→22:16)
[2021-03-14] MEDS: busPIRone 5 MG TAB PO SCH (08:27)
[2021-03-14] MEDS: ENOXAPARIN INJ 40 MG/0.4 ML SYR SQ SCH (08:27)
[2021-03-14] MEDS: ESCITALOPRAM OXALATE 10 MG TAB PO SCH (08:28)
[2021-03-14] MEDS: FAMOTIDINE 40 MG TABLET PO SCH (08:28)
[2021-03-14] MEDS: lisinopril 10 MG TAB PO SCH (08:29)
[2021-03-14] MEDS: INSULIN ASPART 100 UNITS/ML 3 ML PEN SC SCH ×4 (08:47→21:40)
[2021-03-14] MEDS: INSULIN GLARGINE SOLOSTAR 100 UNITS/ML 3 ML PEN SC SCH (08:49)
[2021-03-14] MEDS ORDERED: FUROSEMIDE 40 MG in SYRINGE 0 ML IV ONE (09:00)
--- NOTE | 2021-03-14 11:32 | Pulmonary Consultation ---
Date of Consultation March 14, 2021 Assessment & Plan (1) Acute hypoxemic respiratory failure: (2) Pneumonia due to COVID-19 virus: (3) Asthma: (4) Obesity, unspecified: --Acute hypoxic respiratory failure Secondary to multilobar COVID-19 pneumonia COVID-19 PCR positive 03/09/2021 CRP 8.88 Procalcitonin <0.05 Continue with O2 supplementation to keep oxygen saturation between 90-92%. Awake proning will be helpful Continue with incentive spirometry Continue with flutter valve. Recommend patient to be kept euvolemic to negative balance --BRENDA On CPAP at home Recently had not been using it because her machine was on recall States that she is on 5 cm H2O pressure --Childhood history of asthma Has not been on any inhalers since childhood Plan: Patient got 40 mg of Lasix today Keep the patient negative balance Strict ins and outs I will start the patient on baricitinib. Patient will benefit from CPAP nightly and as needed shortness of breath, awake proning will be beneficial Hold lisinopril given the patient's blood pressure was on the softer side yesterday Given the increased requirement of FiO2. I will transfer the patient to the Covid unit where we can monitor her more closely. Patient is agreeable to intubation if need be. I have personally spent 45 minutes of critical care time in the direct management of this patient. This is a life/limb threatening event. This includes time spent evaluating patient, direct bedside care, chart review, placing orders, interpretation of diagnostic studies, discussion with consultants, patient, and family members, as well as other required patient management activities. This time is exclusive of all separately billable procedures, and teaching time and separate from and in addition to any other critical care service time. Please note the above document was generated using voice recognition software. It may contain grammatical, syntax or spelling errors. History of Present Illness Attending Physician: Willie Lockwood MD History of Present Illness 35-year-old female past medical history of diabetes type 2, morbid obesity, hypertension, anxiety/mood disorder. Patient was found to be COVID-19 positive as an outpatient. Pulmonary consulted for increasing oxygen requirement At the time of examination patient was on 100%, 40 L saturating 92% She did desaturate to 88% while talking to me She was not in any respiratory distress Patient has been using incentive spirometry. Going up to 1000 mL. Has been using flutter valve bringing up clear phlegm. No hemoptysis Denied any chest pain, no headache, no dizziness, no blurry vision No nausea vomiting Fair appetite Social history: Used to be smoker long time ago maybe half a pack a day. No birds or poultry nearby Allergies Allergy/AdvReac Type Severity Reaction Status Date / Time verapamil AdvReac Unknown "Black Out" Verified 03/09/21 21:49 Home Medications Medication Instructions Recorded Confirmed Type metformin 1,000 mg tablet 1,000 mg PO QAM 03/29/18 03/09/21 History bupropion HCl 150 mg 24 hr tablet, 150 mg PO QAM 02/13/20 03/09/21 History extended release chlorthalidone 25 mg tablet 25 mg PO QAM 02/13/20 03/09/21 History famotidine 40 mg tablet 40 mg PO QAM 02/13/20 03/09/21 History lisinopril 10 mg tablet 10 mg PO QAM 02/13/20 03/09/21 History sucralfate 1 gram tablet 1 g PO ACHS 02/13/20 03/09/21 History clonazepam 1 mg tablet 1 mg PO TID PRN 03/03/20 03/09/21 History escitalopram oxalate 10 mg tablet 30 mg PO QAM 03/03/20 03/09/21 History hydroxyzine HCl 25 mg tablet 25 - 50 mg PO HS 03/03/20 03/09/21 History meclizine 25 mg tablet 25 mg PO DAILY PRN 06/02/20 03/09/21 History diclofenac sodium 75 mg 75 mg PO BID #60 tab 07/28/20 03/09/21 Rx tablet,delayed release buspirone 10 mg tablet 10 mg PO QAM 12/02/20 03/09/21 History ketorolac 60 mg/2 mL intramuscular 30 mg IM WK PRN 30 Days #4 ml 01/12/21 03/09/21 Rx solution syringe with needle 3 mL 21 gauge #100 ea 01/12/21 Rx x 1 1/2" (BD Luer-Indira Syringe) hydromorphone 4 mg tablet 4 mg PO DAILY PRN 30 Days #8 tab 02/02/21 03/09/21 Rx Patient History Medical History Anxiety Benign positional vertigo treated PRN Cervical radiculopathy Chronic migraine without aura with status migrainosus, not intractable Depression GERD (gastroesophageal reflux disease) Hx of endometriosis Hypertension Insomnia Kidney stones Lumbar spinal stenosis Nausea and vomiting after administration of anesthetic agent Peptic ulcer disease hx Pre-diabetes Sleep apnea bipap Surgical History H/O section (04/28/11) x1 History of cholecystectomy (01/27/13) History of dilatation and curettage History of esophagogastroduodenoscopy (EGD) History of laparoscopy History of ovarian cystectomy x2 S/P epidural steroid injection Family History Mother Diabetes Hypertension Stroke syndrome Chronic kidney disease Congestive heart failure Sarcoidosis Father Heart disease Hypertension Social History Smoking Status: Former smoker Second Hand Exposure: Yes (); Do You Dip or Chew Tobacco: No; Hx Alcohol Use: Yes Hx Substance Use: No Preferred Language: Spanish Communication Ability: Effective Visual Impairment: No Limitations Hearing Ability: Normal Barrel Painter Required: No Beliefs That Will Affect Care: None marital status: Current Living Situation: Family Current Living Situation Comment: , daugher and father current occupational status: employed 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 Other Information That Helps Us Care for You: No Feels Safe at Home: Yes Safety Concerns: Feels Safe At This Time Assistive Devices: Glasses and Oxygen - Continuous Review of Systems Review of Systems: All systems reviewed & are unremarkable except as noted in HPI & below Physical Exam Physical Exam: Constitutional: No acute distress HEENT: EOMI, PERRLA Respiratory system: Decreased air entry bilaterally, no wheeze, rhonchi, positive crackles laterally CVS: S1-S2 positive, no murmurs or gallops Abdomen: Soft, nontender, nondistended, positive bowel sounds x4, Obese Extremities: +2 pulses bilaterally radialis/ dorsalis pedis, no cyanosis, +1 edema Neuro: Awake alert oriented x3 Psych: Normal mood and affect G/U: No [place] Skin: no rashes, warm and dry Lymphatic: no cervical or axillary lymphadenopathy Results & Data Results & Data ([facility]) Vital Signs (Past 12 Hours) Vital Signs Temp Pulse Pulse Resp BP Pulse Ox Pulse Ox 03/14/21 11:18 50 L 03/14/21 10:34 66 22 95 03/14/21 10:32 60 22 93 03/14/21 08:28 81 20 91 03/14/21 08:05 81 20 91 03/14/21 07:48 37.1 C 62 18 116/70 93 03/14/21 07:16 96 03/14/21 04:00 37.0 C 58 L 18 135/80 93 03/14/21 03:30 69 03/14/21 03:17 53 L 28 H 90 03/14/21 00:00 37.1 C 61 18 145/84 H 92 03/11/21 00:54 03/13/21 06:55 PG Care Time/CCT Total # of Minutes Spent Total Time Spent with Patient: Total time spent is greater than 50% in coordination of care (as documented) at patient's floor/unit and/or counseling patient: Critical Care Time: Yes Total Critical Care Time: 45 Coding Level of Care Code None Diagnoses Acute hypoxemic respiratory failure J96.01 Pneumonia due to COVID-19 virus U07.1; J12.82 Asthma J45.909 Obesity, unspecified E66.9 Additional Codes Critical Care Time - Critical Care Time: Yes ([id number])
[2021-03-14] MEDS ORDERED: BARICITINIB 2 MG TAB PO SCH (12:30)
--- NOTE | 2021-03-14 15:08 | Hospitalist Progress Note ---
Date of Service March 14, 2021 Assessment & Plan (1) Acute hypoxemic respiratory failure: Plan: Secondary to severe COVID-19 pneumonia Did not receive any vaccination for COVID-19 Received dexamethasone on admission and got first dose of remdesivir last night and will finish the course Requiring high flow oxygen to maintain saturation with FiO2 of 65% and flow rate 30 L/min Clinically stable Will provide spirometer and flutter valve Not being any better today She is complying with prone positioning Appreciate pulmonary input and recommendation Baricitinib has been added and and will keep her on the pulp drier firer side Hypertension, slight elevated Lisinopril is on hold We will give Lasix to keep her on the pulp drier firer side Anxiety/mood disorder, at baseline Migraine attack secondary to illness DM2 on oral medications, well-controlled as of recent hemoglobin A1c of 5.19 November 2020 Basal insulin, ISS BG goal 1 10-1 40, carb count coverage, update hemoglobin A1c-6.3 as of 03/09/2021 DVT prophylaxis per Lovenox subcu Full code Admission and Anticipated Discharge Date Admission Date: March 10, 2021 Subjective 03/11/2021 The patient was seen and examined in medical telemetry unit She has been requiring high flow oxygen to maintain saturation and received remdesivir yesterday Feels shortness of breath with minimal exertion but better at rest 03/12/2029 The patient was seen and examined in medical telemetry unit She has been requiring more oxygen to maintain saturation She is complying with prone positioning 03/13/2021 The patient was seen and examined in medical telemetry unit and in the Covid room Her condition has not improved and is still requiring 40 L of oxygen with 100% FiO2 to maintain saturation 03/14/2021 The patient was seen and examined in medical telemetry unit and in the Covid room She has been getting any better and requiring high flow oxygen to maintain saturation We will sought advice from real time trader Review of Systems Review of Systems: All systems reviewed and are unremarkable except as noted below Respiratory: Moderate shortness of breath at rest Physical Exam Physical Exam: Lying in bed in prone position with moderate shortness of breath Constitutional: well developed, well nourished, + ill appearing and + obese Eyes: PERRL, conjunctivae normal, anicteric sclerae ENMT: external ear and nose normal, oropharynx normal Neck: trachea midline, no thyromegaly Respiratory: + cough; no respiratory distress Auscultation: + diminished lung sounds and + crackles (At the bases) Cardiovascular: Rate/Rhythm: regular rate and regular rhythm; not tachycardic Heart Sounds: normal S1 and normal S2; no murmur Extremities: + edema (Trace edema bilaterally) Gastrointestinal (Abdomen): Inspection/Auscultation: normal bowel sounds; abdomen not distended Percussion/Palpation: abdomen soft; abdomen nontender Musculoskeletal: No acute arthritis in any joint Neurologic: Alert, awake and oriented x3 Results & Data Results & Data ([facility]) Vital Signs (Past 12 Hours) Vital Signs Temp Pulse Pulse Resp BP Pulse Ox Pulse Ox 03/14/21 13:00 37.1 C 59 L 24 115/82 92 03/14/21 11:18 50 L 03/14/21 10:34 66 22 95 03/14/21 10:32 60 22 93 03/14/21 08:28 81 20 91 03/14/21 08:05 81 20 91 03/14/21 07:48 37.1 C 62 18 116/70 93 03/14/21 07:16 96 03/14/21 04:00 37.0 C 58 L 18 135/80 93 03/14/21 03:30 69 03/14/21 03:17 53 L 28 H 90 Medications Administered Current Inpatient Medications Acetaminophen (Acetaminophen 325 Mg Tab) 650 mg PO Q4H PRN PRN Reason: Pain or Fever Stop: 04/09/21 03:08 Last Admin: 03/11/21 11:45 Dose: 650 mg Documented by: Albuterol (Albuterol Hfa 8 Gm Inhaler) 2 puffs INH Q2R PRN PRN Reason: sob/wheeze Stop: 04/10/21 00:12 Baricitinib (Baricitinib 2 Mg Tab) 2 mg PO DAILY [facility] Stop: 03/28/21 12:29 Last Admin: 03/14/21 13:08 Dose: 2 mg Documented by: Bupropion HCl (Bupropion Xl 150 Mg Tabcr) 150 mg PO QAM [facility] Stop: 04/09/21 08:59 Last Admin: 03/14/21 08:26 Dose: 150 mg Documented by: Buspirone HCl (Buspirone 5 Mg Tab) 10 mg PO QAM [facility] Stop: 04/09/21 08:59 Last Admin: 03/14/21 08:27 Dose: 10 mg Documented by: Clonazepam (Clonazepam 1 Mg Tab) 1 mg PO TID PRN PRN Reason: Anxiety Stop: 04/09/21 03:08 Last Admin: 03/13/21 22:09 Dose: 1 mg Documented by: Dextrose (Dextrose 50% 50 Ml Syringe) 25 - 50 ml IV UD PRN; Protocol PRN Reason: Hypoglycemia Protocol Stop: 04/09/21 03:08 Diclofenac Sodium (Diclofenac Sodium 75 Mg Tabcr) 75 mg PO BID [facility] Stop: 04/09/21 08:59 Last Admin: 03/14/21 08:27 Dose: 75 mg Documented by: Enoxaparin Sodium (Enoxaparin Inj 40 Mg/0.4 Ml Syr) 40 mg SQ QAM [facility] Stop: 04/09/21 08:59 Last Admin: 03/14/21 08:27 Dose: 40 mg Documented by: Escitalopram Oxalate (Escitalopram Oxalate 10 Mg Tab) 30 mg PO QAM [facility] Stop: 04/09/21 08:59 Last Admin: 03/14/21 08:28 Dose: 30 mg Documented by: Famotidine (Famotidine 40 Mg Tablet) 40 mg PO QAM [facility] Stop: 04/09/21 08:59 Last Admin: 03/14/21 08:28 Dose: 40 mg Documented by: Glucagon (Glucagon For Inj 1 Mg Vial) 1 mg SQ UD PRN; Protocol PRN Reason: Hypoglycemia Protocol Stop: 04/09/21 03:08 Glucose (Glucose 10 Tabs/Tube) 4 - 8 tabs PO UD PRN; Protocol PRN Reason: Hypoglycemia Protocol Stop: 04/09/21 03:08 Glucose (Glucose 40% Gel 15 Gm Tube) 15 - 30 gm PO UD PRN; Protocol PRN Reason: Hypoglycemia Protocol Stop: 04/09/21 03:08 Hydromorphone HCl (Hydromorphone Hcl 2 Mg Tab) 4 mg PO QID PRN PRN Reason: severe headache Stop: 03/24/21 03:17 Hydroxyzine HCl (Hydroxyzine Hcl 25 Mg Tab) 25 mg PO HS [facility] Stop: 04/09/21 04:14 Last Admin: 03/13/21 21:06 Dose: 25 mg Documented by: Promethazine HCl 12.5 mg/ (Sodium Chloride) 50.5 mls @ 202 mls/hr IV Q6H PRN PRN Reason: Nausea And Vomiting Stop: 04/09/21 03:08 Last Infusion: 03/11/21 02:02 Dose: Infused Documented by: Dexamethasone 6 mg/ Syringe 1.5 mls @ 1 mls/min IV DAILY [facility] Stop: 04/10/21 00:29 Last Admin: 03/14/21 08:27 Dose: 1 mls/min Documented by: Remdesivir 100 mg/ Sodium (Chloride) 250 mls @ 250 mls/hr IV Q24H [facility]; Protocol Stop: 03/14/21 20:59 Last Infusion: 03/13/21 22:09 Dose: Infused Documented by: Insulin Aspart (Insulin Aspart 100 Units/Ml 3 Ml Pen) 0 units SC [facility] Stop: 04/09/21 03:29 Last Admin: 03/14/21 13:07 Dose: 2 units Documented by: Insulin Glargine (Insulin Glargine Solostar 100 Units/Ml 3 Ml Pen) 5 units SC DAILY [facility] Stop: 04/09/21 05:59 Last Admin: 03/14/21 08:49 Dose: 5 units Documented by: Levalbuterol HCl (Levalbuterol Tartrate 15 Gm Hfa.Aer.Ad) 2 puffs INH QIDR [facility] Stop: 04/09/21 06:59 Last Admin: 03/14/21 10:32 Dose: 2 puffs Documented by: Lisinopril (Lisinopril 10 Mg Tab) 10 mg PO QAM [facility] Stop: 04/09/21 08:59 Last Admin: 03/14/21 08:29 Dose: 10 mg Documented by: Meclizine HCl (Meclizine Hcl 25 Mg Tab) 25 mg PO DAILY PRN PRN Reason: Vertigo Stop: 04/09/21 03:18 Miscellaneous (Carbohydrates For Hypoglycemia ) 15 - 30 gm PO UD PRN PRN Reason: Hypoglycemia Protocol Stop: 04/09/21 03:08 Sodium Chloride (Sodium Chloride 0.9% 10ml Flush) 30 ml IV Q24H [facility] Stop: 03/15/21 21:01 Last Admin: 03/13/21 22:09 Dose: 30 ml Documented by: Sucralfate (Sucralfate 1 Gm Tab) 1 gm PO ACHS [facility] Stop: 04/09/21 07:29 Last Admin: 03/14/21 13:08 Dose: Not Given Documented by:
[2021-03-14] MEDS ORDERED: BARICITINIB 2 MG TAB PO ONE (17:15)
[2021-03-14] MEDS ORDERED: MAGNESIUM SULFATE / D5W 1 GM/100 ML BAG IV ONE (19:38)
[2021-03-14] MEDS ORDERED: methylPREDNISolone 20 MG in SYRINGE 0 ML IV STA (19:38)
[2021-03-14] MEDS ORDERED: LEVALBUTEROL TARTRATE 15 GM HFA.AER.AD INH STA (19:40)
--- NOTE | 2021-03-14 20:25 | XRay Report ---
XR chest 1V portable INDICATION: MN ^low o2 . TECHNIQUE: Single frontal radiograph of the chest was obtained. Comparison: Comparison is made to chest one view 03/11/2021 FINDINGS: Exam is limited by underpenetration. Cardiomegaly is noted. There is prominence and cephalization of the vasculature with Marcellus B lines seen. Interval improvement in multifocal airspace opacities peyton tible with history of viral pneumonia. No evidence of pleural effusion or pneumothorax. IMPRESSION: Cardiomegaly with moderate pulmonary edema. Interval improvement in multifocal airspace opacities in this patient with history of viral pneumonia. ACT 112: Negative or not required by law. Electronically signed by: Mike Jacobs M.D. 03/14/2021 8:24 PM
[2021-03-14] MEDS: REMDESIVIR 100 MG in SODIUM CHLORIDE 0.9% 230 ML IV SCH (21:38)
[2021-03-14] MEDS: clonazePAM 1 MG TAB PO PRN (21:39)
[2021-03-14] MEDS: hydrOXYzine HCl 25 MG TAB PO SCH (21:39)
[2021-03-14 22:00] LABS: BUN Creatinine Ratio 34.8 (10-20); Calcium 9.4 mg/dl (8.5-10.1); Creatinine Clr Calc Pharmacy 101.7 ml/min; Est GFR (African American) 77.3 ml/min; Est GFR (Non-African American) 66.7 ml/min; Magnesium 2.2 mg/dl (1.8-2.4); Potassium 3.9 mmol/L (3.5-5.1)
[2021-03-14] MEDS: SODIUM CHLORIDE 0.9% 10ML FLUSH IV SCH (22:34)
[2021-03-14 23:03] LABS: Base Excess ABG 1.4 mEq/L (-9-1.8); HCO3 ABG 25 mmol/L (19-24); Oxygen Saturation ABG 96.7 % (90-95); PCO2 ABG 36 mmHg (35-46); PO2 ABG 82 mmHg (80-95); pH ABG 7.46 (7.35-7.45)
[2021-03-14 23:17] LABS: Allen Test POS (Pos)
[2021-03-14] MEDS ORDERED: POTASSIUM CHLORIDE CRTAB 20 MEQ TABCR PO STA (23:36)
[2021-03-15 06:41] LABS: Basophils # (auto) 0.01 K/uL (0-0.2); Basophils % (auto) 0.2 %; Hematocrit (blood only) 38.3 % (37-47); Hemoglobin 12.6 g/dL (12.0-16.0); Immature Granulocytes # (auto) 0.03 K/uL (0.00-0.02); Immature Granulocytes % (auto) 0.5 %; Lymphocytes # (auto) 0.77 K/uL (1.2-3.4); Lymphocytes % (auto) 11.7 %; Mean Corpuscular Hemoglobin 26.3 pg (25-34); Mean Corpuscular Hgb Conc 32.9 g/dL (32-36); Mean Platelet Volume 9.3 fL (7.4-10.4); Monocytes # (auto) 0.45 K/uL (0.11-0.59); Monocytes % (auto) 6.8 %; Neutrophils # (auto) 5.34 K/uL (1.4-6.5); Neutrophils % (auto) 80.8 %; Platelet Count 345 K/uL (130-400); RDW Coefficient of Variation 16.4 % (11.5-14.5); RDW Standard Deviation 48.5 fL (36.4-46.3); Red Blood Count 4.79 M/uL (4.2-5.4)
[2021-03-15 07:09] LABS: BUN Creatinine Ratio 41.6 (10-20); Calcium 8.8 mg/dl (8.5-10.1); Creatinine Clr Calc Pharmacy 110.5 ml/min; Est GFR (Non-African American) 73.3 ml/min; Magnesium 2.5 mg/dl (1.8-2.4); Potassium 4.2 mmol/L (3.5-5.1)
[2021-03-15] MEDS: LEVALBUTEROL TARTRATE 15 GM HFA.AER.AD INH SCH ×4 (07:52→19:52)
[2021-03-15] MEDS: INSULIN ASPART 100 UNITS/ML 3 ML PEN SC SCH ×4 (08:46→20:09)
[2021-03-15] MEDS: INSULIN GLARGINE SOLOSTAR 100 UNITS/ML 3 ML PEN SC SCH (08:47)
[2021-03-15] MEDS: busPIRone 5 MG TAB PO SCH (08:53)
[2021-03-15] MEDS: SUCRALFATE 1 GM TAB PO SCH ×4 (08:54→20:09)
[2021-03-15] MEDS: buPROPion XL 150 MG TABCR PO SCH (08:55)
[2021-03-15] MEDS: DICLOFENAC SODIUM 75 MG TABCR PO SCH ×2 (09:10→20:10)
[2021-03-15] MEDS: dexAMETHasone 6 MG in SYRINGE 0 ML IV SCH (09:10)
[2021-03-15] MEDS: ENOXAPARIN INJ 40 MG/0.4 ML SYR SQ SCH (09:11)
[2021-03-15] MEDS: ESCITALOPRAM OXALATE 10 MG TAB PO SCH (09:14)
[2021-03-15] MEDS: FAMOTIDINE 40 MG TABLET PO SCH (09:15)
[2021-03-15] MEDS: 4 mg Once Daily x14 days PO SCH (09:52)
[2021-03-15] MEDS: FUROSEMIDE 40 MG in SYRINGE 0 ML IV SCH (09:52)
--- NOTE | 2021-03-15 14:35 | Pulmonology Progress Note ---
Date of Service March 15, 2021 Assessment & Plan (1) Acute hypoxemic respiratory failure: (2) Pneumonia due to COVID-19 virus: (3) Asthma: (4) Obesity, unspecified: Plan: --Acute hypoxic respiratory failure Secondary to multilobar COVID-19 pneumonia COVID-19 PCR positive 03/09/2021 CRP 8.88 Procalcitonin <0.05 Baricitinib started 03/14/21 Continue with O2 supplementation to keep oxygen saturation between 90-92%. Awake proning will be helpful Continue with incentive spirometry Continue with flutter valve. Recommend patient to be kept euvolemic to negative balance --BRENDA On CPAP at home Recently had not been using it because her machine was on recall States that she is on 5 cm H2O pressure --Childhood history of asthma Has not been on any inhalers since childhood Plan: Lasix 40mg daily. Keep patient negative balance. Give extra dose of Lasix if the patient is not negative balance. CPAP while patient is asleep. Please note the above document was generated using voice recognition software. It may contain grammatical, syntax or spelling errors. Admission and Anticipated Discharge Date Admission Date: March 10, 2021 Subjective Patient seen and examined at bedside. No acute distress, no adverse events overnight. Patient was lying in left decubitus position at the time of examination she was sleeping She was on 80%, 30 L saturating 83%. When I did wake her up her saturation went up to 93-94% I did advise the patient to use CPAP whenever she is asleep She stated that she is feeling well. Bringing up phlegm. No headache, no nausea, no vomiting Fair appetite. Review of Systems Review of Systems: All systems reviewed & are unremarkable except as noted in Subjective Physical Exam Physical Exam: Constitutional: No acute distress HEENT: EOMI, PERRLA Respiratory system: Decreased air entry bilaterally, no wheeze, rhonchi, positive crackles laterally CVS: S1-S2 positive, no murmurs or gallops Abdomen: Soft, nontender, nondistended, positive bowel sounds x4, Obese Extremities: +2 pulses bilaterally radialis/ dorsalis pedis, no cyanosis, +1 edema Neuro: Awake alert oriented x3 Psych: Normal mood and affect G/U: Positive [place] Skin: no rashes, warm and dry Lymphatic: no cervical or axillary lymphadenopathy Results & Data Results & Data ([facility]) Vital Signs (Past 12 Hours) Vital Signs Temp Pulse Pulse Resp BP BP Pulse Ox 03/15/21 13:00 53 L 31 H 104/68 92 03/15/21 12:00 64 31 H 99/64 L 03/15/21 11:38 70 16 100 03/15/21 11:00 63 21 120/71 90 03/15/21 10:56 36.9 C 59 L 59 L 26 H 112/84 112/84 86 L 03/15/21 10:00 69 30 H 121/73 90 03/15/21 09:00 66 27 H 114/62 94 03/15/21 08:00 74 29 H 120/62 88 L 03/15/21 07:53 85 22 90 03/15/21 07:36 36.8 C 58 L 18 124/77 97 03/15/21 07:34 59 L 14 132/104 H 03/15/21 07:00 50 L 26 H 118/80 94 03/15/21 06:00 68 18 123/62 94 03/15/21 03:20 36.7 C 48 L 25 H 122/79 93 03/15/21 02:33 52 L 26 H 92 03/15/21 06:21 03/15/21 06:21 PG Care Time/CCT Total # of Minutes Spent Total Time Spent with Patient: Total time spent is greater than 50% in coordination of care (as documented) at patient's floor/unit and/or counseling patient: Coding Level of Care Code 13418 Subseq Hosp Care Lvl 3 Diagnoses Acute hypoxemic respiratory failure J96.01 Pneumonia due to COVID-19 virus U07.1; J12.82 Asthma J45.909 Obesity, unspecified E66.9
--- NOTE | 2021-03-15 15:25 | Hospitalist Progress Note ---
Date of Service March 15, 2021 Assessment & Plan (1) Acute hypoxemic respiratory failure: Plan: Secondary to severe COVID-19 pneumonia Did not receive any vaccination for COVID-19 Received dexamethasone on admission and got first dose of remdesivir last night and will finish the course Requiring high flow oxygen to maintain saturation with FiO2 of 65% and flow rate 30 L/min Clinically stable Will provide spirometer and flutter valve Not being any better today She is complying with prone positioning Appreciate pulmonary input and recommendation Baricitinib has been added and and will keep her on the flash drier operator side Has been getting Lasix routinely Remains stable clinically Hypertension, slight elevated Lisinopril is on hold We will give Lasix to keep her on the flash drier operator side Anxiety/mood disorder, at baseline Migraine attack secondary to illness DM2 on oral medications, well-controlled as of recent hemoglobin A1c of 5.19 November 2020 Basal insulin, ISS BG goal 1 10-1 40, carb count coverage, update hemoglobin A1c-6.3 as of 03/09/2021 DVT prophylaxis per Lovenox subcu Full code Admission and Anticipated Discharge Date Admission Date: March 10, 2021 Subjective 03/11/2021 The patient was seen and examined in medical telemetry unit She has been requiring high flow oxygen to maintain saturation and received remdesivir yesterday Feels shortness of breath with minimal exertion but better at rest 03/12/2029 The patient was seen and examined in medical telemetry unit She has been requiring more oxygen to maintain saturation She is complying with prone positioning 03/13/2021 The patient was seen and examined in medical telemetry unit and in the Covid room Her condition has not improved and is still requiring 40 L of oxygen with 100% FiO2 to maintain saturation 03/14/2021 The patient was seen and examined in medical telemetry unit and in the Covid room She has been getting any better and requiring high flow oxygen to maintain saturation We will sought advice from recooperer 03/15/2021 The patient was seen and examined in telemetry unit in Covid room She remains stable and is still requiring 4 L of oxygen to maintain saturation Clinically she feels a little bit better Review of Systems Review of Systems: All systems reviewed and are unremarkable except as noted below Respiratory: Moderate shortness of breath at rest Physical Exam Physical Exam: Lying in bed in prone position with moderate shortness of breath Constitutional: well developed, well nourished, + ill appearing and + obese Eyes: PERRL, conjunctivae normal, anicteric sclerae ENMT: external ear and nose normal, oropharynx normal Neck: trachea midline, no thyromegaly Respiratory: + cough; no respiratory distress Auscultation: + diminished lung sounds and + crackles (At the bases) Cardiovascular: Rate/Rhythm: regular rate and regular rhythm; not tachycardic Heart Sounds: normal S1 and normal S2; no murmur Extremities: + edema (Trace edema bilaterally) Gastrointestinal (Abdomen): Inspection/Auscultation: normal bowel sounds; abdomen not distended Percussion/Palpation: abdomen soft; abdomen nontender Neurologic: Alert, awake and oriented x3. No focal sensory or motor deficit appreciated Results & Data Results & Data ([facility]) Vital Signs (Past 12 Hours) Vital Signs Temp Pulse Pulse Resp BP BP Pulse Ox 03/15/21 13:00 53 L 31 H 104/68 92 03/15/21 12:00 64 31 H 99/64 L 03/15/21 11:38 70 16 100 03/15/21 11:00 63 21 120/71 90 03/15/21 10:56 36.9 C 59 L 59 L 26 H 112/84 112/84 86 L 03/15/21 10:00 69 30 H 121/73 90 03/15/21 09:00 66 27 H 114/62 94 03/15/21 08:00 74 29 H 120/62 88 L 03/15/21 07:53 85 22 90 03/15/21 07:36 36.8 C 58 L 18 124/77 97 03/15/21 07:34 59 L 14 132/104 H 03/15/21 07:00 50 L 26 H 118/80 94 03/15/21 06:00 68 18 123/62 94 Laboratory Results Short CBC 03/15/21 Range/Units 06:21 WBC 6.60 (4.8-10.8) K/uL Hgb 12.6 (12.0-16.0) g/dL Hct 38.3 (37-47) % Plt Count 345 (130-400) K/uL BMP 03/14/21 03/15/21 21:25 06:21 Sodium 142 142 Potassium 3.9 4.2 Chloride 108 H 109 H Carbon Dioxide 26 27 BUN 37 H 41 H Creatinine 1.07 0.99 Glucose 121 H 139 H Calcium 9.4 8.8 Medications Administered Current Inpatient Medications Acetaminophen (Acetaminophen 325 Mg Tab) 650 mg PO Q4H PRN PRN Reason: Pain or Fever Stop: 04/09/21 03:08 Last Admin: 03/11/21 11:45 Dose: 650 mg Documented by: Albuterol (Albuterol Hfa 8 Gm Inhaler) 2 puffs INH Q2R PRN PRN Reason: sob/wheeze Stop: 04/10/21 00:12 Baricitinib (4 Mg Once Daily X14 Days) 4 mg PO DAILY [facility]; Protocol Stop: 03/28/21 08:59 Last Admin: 03/15/21 09:52 Dose: 4 mg Documented by: Bupropion HCl (Bupropion Xl 150 Mg Tabcr) [facility] Stop: 04/09/21 08:59 Last Admin: 03/15/21 08:55 Dose: 150 mg Documented by: Buspirone HCl (Buspirone 5 Mg Tab) 10 mg PO QAM [facility] Stop: 04/09/21 08:59 Last Admin: 03/15/21 08:53 Dose: 10 mg Documented by: Clonazepam (Clonazepam 1 Mg Tab) 1 mg PO TID PRN PRN Reason: Anxiety Stop: 04/09/21 03:08 Last Admin: 03/14/21 21:39 Dose: 1 mg Documented by: Dextrose (Dextrose 50% 50 Ml Syringe) 25 - 50 ml IV UD PRN; Protocol PRN Reason: Hypoglycemia Protocol Stop: 04/09/21 03:08 Diclofenac Sodium (Diclofenac Sodium 75 Mg Tabcr) 75 mg PO BID [facility] Stop: 04/09/21 08:59 Last Admin: 03/15/21 09:10 Dose: 75 mg Documented by: Enoxaparin Sodium (Enoxaparin Inj 40 Mg/0.4 Ml Syr) 40 [facility] [place] Stop: 04/09/21 08:59 Last Admin: 03/15/21 09:11 Dose: 40 mg Documented by: Escitalopram Oxalate (Escitalopram Oxalate 10 Mg Tab) 30 [facility] [place] Stop: 04/09/21 08:59 Last Admin: 03/15/21 09:14 Dose: 30 mg Documented by: Famotidine (Famotidine 40 Mg Tablet) 40 mg PO [facility] Stop: 04/09/21 08:59 Last Admin: 03/15/21 09:15 Dose: 40 mg Documented by: Glucagon (Glucagon For Inj 1 Mg Vial) 1 mg SQ UD PRN; Protocol PRN Reason: Hypoglycemia Protocol Stop: 04/09/21 03:08 Glucose (Glucose 10 Tabs/Tube) 4 - 8 tabs PO UD PRN; Protocol PRN Reason: Hypoglycemia Protocol Stop: 04/09/21 03:08 Glucose (Glucose 40% Gel 15 Gm Tube) 15 - 30 gm PO UD PRN; Protocol PRN Reason: Hypoglycemia Protocol Stop: 04/09/21 03:08 Hydromorphone HCl (Hydromorphone Hcl 2 Mg Tab) 4 mg PO QID PRN PRN Reason: severe headache Stop: 03/24/21 03:17 Hydroxyzine HCl (Hydroxyzine Hcl 25 Mg Tab) 25 mg PO HS [facility] Stop: 04/09/21 04:14 Last Admin: 03/14/21 21:39 Dose: Not Given Documented by: Promethazine HCl 12.5 mg/ (Sodium Chloride) 50.5 mls @ 202 mls/hr IV Q6H PRN PRN Reason: Nausea And Vomiting Stop: 04/09/21 03:08 Last Infusion: 03/11/21 02:02 Dose: Infused Documented by: Dexamethasone 6 mg/ Syringe 1.5 mls @ 1 mls/min IV DAILY [facility] Stop: 04/10/21 00:29 Last Admin: 03/15/21 09:10 Dose: 1 mls/min Documented by: Furosemide 40 mg/ Syringe 4 mls @ 4 mls/min IV DAILY [facility] Stop: 04/14/21 09:29 Last Admin: 03/15/21 09:52 Dose: 4 mls/min Documented by: Insulin Aspart (Insulin Aspart 100 Units/Ml 3 Ml Pen) 0 units SC ACHS [facility] Stop: 04/09/21 03:29 Last Admin: 03/15/21 12:30 Dose: Not Given Documented by: Insulin Glargine (Insulin Glargine Solostar 100 Units/Ml 3 Ml Pen) 5 units SC DAILY [facility] Stop: 04/09/21 05:59 Last Admin: 03/15/21 08:47 Dose: 5 units Documented by: Levalbuterol HCl (Levalbuterol Tartrate 15 Gm Hfa.Aer.Ad) 2 puffs INH QIDR [facility] Stop: 04/09/21 06:59 Last Admin: 03/15/21 11:37 Dose: 2 puffs Documented by: Lisinopril (Lisinopril 10 Mg Tab) 10 mg PO QAM [facility] Stop: 04/09/21 08:59 Last Admin: 03/14/21 08:29 Dose: 10 mg Documented by: Meclizine HCl (Meclizine Hcl 25 Mg Tab) 25 mg PO DAILY PRN PRN Reason: Vertigo Stop: 04/09/21 03:18 Miscellaneous (Carbohydrates For Hypoglycemia ) 15 - 30 gm PO UD PRN PRN Reason: Hypoglycemia Protocol Stop: 04/09/21 03:08 Sodium Chloride (Sodium Chloride 0.9% 10ml Flush) 30 ml IV Q24H [facility] Stop: 03/15/21 21:01 Last Admin: 03/14/21 22:34 Dose: 30 ml Documented by: Sucralfate (Sucralfate 1 Gm Tab) 1 gm PO ACHS [facility] Stop: 04/09/21 07:29 Last Admin: 03/15/21 12:28 Dose: Not Given Documented by:
[2021-03-15] MEDS: SODIUM CHLORIDE 0.9% 10ML FLUSH IV SCH (19:03)
[2021-03-15] MEDS: hydrOXYzine HCl 25 MG TAB PO SCH (20:09)
[2021-03-15 21:29] LABS: iSTAT Allen Test Pass; iSTAT Art Bld Gas pCO2 Correct 35 mmHg (35-46); iSTAT Art Bld Gas pH Corrected 7.515 (7.35-7.45); iSTAT Arterial Blood Gas HCO3 28 meg/L (19-24); iSTAT Arterial Blood Gas pCO2 35 mmHg (35-46); iSTAT Arterial Blood Gas pH 7.52 (7.35-7.45); iSTAT Arterial Blood Gas pO2 67 mmHg (80-95); iSTAT Arterial Blood Gas pO2 C 67; iSTAT Carbon Dioxide 29 mmol/L (24-31); iSTAT FiO2 100 %; iSTAT Hematocrit 37 % (37-47); iSTAT Hemoglobin 12.6 g/dl (12.0-16.0); iSTAT Potassium 3.7 mmol/L (3.3-5.0); iSTAT Site R Radial; iSTAT Sodium 143 mmol/L (135-144)
[2021-03-15] MEDS ORDERED: methylPREDNISolone 20 MG in SYRINGE 0 ML IV ONE (21:45)
[2021-03-15] MEDS ORDERED: FUROSEMIDE 20 MG in SYRINGE 0 ML IV ONE ×2 (21:45)
[2021-03-15] MEDS: clonazePAM 1 MG TAB PO PRN (22:21)
[2021-03-16 06:48] LABS: Eosinophils # (auto) 0.01 K/uL (0-0.5); Eosinophils % (auto) 0.1 %; Hemoglobin 12.6 g/dL (12.0-16.0); Immature Granulocytes # (auto) 0.04 K/uL (0.00-0.02); Immature Granulocytes % (auto) 0.4 %; Lymphocytes % (auto) 8.3 %; Mean Corpuscular Hemoglobin 25.9 pg (25-34); Mean Corpuscular Hgb Conc 32.3 g/dL (32-36); Mean Corpuscular Volume 80.2 fL (80-100); Mean Platelet Volume 9.6 fL (7.4-10.4); Monocytes # (auto) 0.43 K/uL (0.11-0.59); Monocytes % (auto) 3.9 %; Neutrophils # (auto) 9.52 K/uL (1.4-6.5); Neutrophils % (auto) 87.3 %; Platelet Count 325 K/uL (130-400); RDW Coefficient of Variation 16.3 % (11.5-14.5); RDW Standard Deviation 47.9 fL (36.4-46.3); Red Blood Count 4.86 M/uL (4.2-5.4)
[2021-03-16 07:18] LABS: BUN Creatinine Ratio 45.6 (10-20); C Reactive Protein 2.64 mg/dl (0-0.29); Calcium 9.2 mg/dl (8.5-10.1); Creatinine Clr Calc Pharmacy 107.2 ml/min; Est GFR (African American) 82.9 ml/min; Est GFR (Non-African American) 71.6 ml/min; Magnesium 2.1 mg/dl (1.8-2.4); Potassium 4.1 mmol/L (3.5-5.1)
[2021-03-16] MEDS: LEVALBUTEROL TARTRATE 15 GM HFA.AER.AD INH SCH ×4 (07:36→19:08)
--- NOTE | 2021-03-16 07:49 | XRay Report ---
XR chest 1V portable INDICATION: MN ^low o2 . TECHNIQUE: Single frontal radiograph of the chest was obtained. Comparison: None available at the time of this dictation. FINDINGS: No lines and tubes are seen. The cardiomediastinal silhouette is normal. Prominence and cephalization of the vasculature is seen. Faint multifocal airspace opacities are seen. No evidence of pleural eff usion or pneumothorax. IMPRESSION: No acute chest disease. ACT 112: Negative or not required by law. Electronically signed by: Mike Jacobs M.D. 03/16/2021 7:48 AM
[2021-03-16] MEDS: buPROPion XL 150 MG TABCR PO SCH (08:18)
[2021-03-16] MEDS: SUCRALFATE 1 GM TAB PO SCH ×4 (08:18→22:12)
[2021-03-16] MEDS: dexAMETHasone 6 MG in SYRINGE 0 ML IV SCH (08:19)
[2021-03-16] MEDS: busPIRone 5 MG TAB PO SCH (08:19)
[2021-03-16] MEDS: DICLOFENAC SODIUM 75 MG TABCR PO SCH ×2 (08:19→22:11)
[2021-03-16] MEDS: FUROSEMIDE 40 MG in SYRINGE 0 ML IV SCH (08:20)
[2021-03-16] MEDS: FAMOTIDINE 40 MG TABLET PO SCH (08:20)
[2021-03-16] MEDS: ESCITALOPRAM OXALATE 10 MG TAB PO SCH (08:20)
[2021-03-16] MEDS: ENOXAPARIN INJ 40 MG/0.4 ML SYR SQ SCH (08:20)
[2021-03-16] MEDS: INSULIN ASPART 100 UNITS/ML 3 ML PEN SC SCH ×4 (09:11→22:28)
[2021-03-16] MEDS: INSULIN GLARGINE SOLOSTAR 100 UNITS/ML 3 ML PEN SC SCH (09:12)
[2021-03-16] MEDS: 4 mg Once Daily x14 days PO SCH (09:37)
[2021-03-16] MEDS ORDERED: OPTIRAY 320 125ml IV ONE (16:21)
--- NOTE | 2021-03-16 17:01 | CT Scan Report ---
CT ANGIOGRAPHY OF THE CHEST, PULMONARY EMBOLUS PROTOCOL CLINICAL HISTORY: R/O PE,Covid 19 Pneumonia COMPARISON STUDY: Chest CT July 26, 2016. Chest radiograph performed earlier today. TECHNIQUE: Following IV administration of 119 mL of Optiray, helical axial images of the chest were o btained utilizing the pulmonary embolus protocol. Maximal intensity projections and sagittal and cor onal reformats were viewed on an independent 3D workstation. IV contrast was administered without co mplication. Automated exposure control was utilized for the study. A dose lowering technique was ut ilized adhering to the principles of ALARA. CT DOSE: 696.36 mGycm FINDINGS: Note is made of extensive right-sided pulmonary emboli. There are pulmonary emboli within the distal right pulmonary artery as well as emboli within the lobar and segmental branches of the ri ght lung. No left-sided pulmonary emboli are identified although exam is compromised by respiratory m otion. There is no pericardial effusion. Extensive groundglass opacities within the lungs are noted. Central airways are patent. There is no consolidation. IMPRESSION: 1. Extensive right-sided pulmonary emboli. Findings discussed with Patel Cárdenas at time of dictation. 2. Extensive groundglass opacities throughout the lungs consistent with viral pneumonia. ACT 112: Negative or not required by law. Electronically signed by: Ady Mccracken M.D. 03/16/2021 5:00 PM
[2021-03-16] MEDS ORDERED: RECOMBINANT IV STA (17:22)
[2021-03-16] MEDS ORDERED: ALTEPLASE IV STA (17:22)
[2021-03-16] MEDS ORDERED: SODIUM CHLORIDE 0.9% IV STA (17:22)
[2021-03-16] MEDS ORDERED: DC ALL ANTICOAGULANTS STA (17:30)
[2021-03-16] MEDS ORDERED: PRIMARY PLUMSET, PE LINED TUBING, 113 IN, NON-DEHP (2260-0500) IV STA (17:30)
[2021-03-16] MEDS ORDERED: SODIUM CHLORIDE 0.9% 50 ML BAG IV STA (17:30)
[2021-03-16] MEDS ORDERED: ALTEPLASE, RECOMBINANT 100 MG in EMPTY BAG 0 ML IV STA (17:30)
[2021-03-16] MEDS ORDERED: Heparin IV Adult Wt-Based Low-Dose *NO* Bolus Protocol IV SCH (18:03)
[2021-03-16] MEDS ORDERED: ICU PROTOCOL FOR HYPERGLYCEMIA PRN (18:18)
--- NOTE | 2021-03-16 18:38 | Hospitalist Progress Note ---
Date of Service March 16, 2021 Assessment & Plan (1) Acute hypoxemic respiratory failure: Plan: Increasing shortness of breath and requiring 100% FiO2 at 40 L/min to maintain saturation CTA did show extensive right-sided pulmonary embolism no echocardiogram was avai lable to assess RV strain The patient remained hemodynamically stable The case discussed with substation superintendent in [place] Dr. Jacques and was not advised for any TPN given the hemodynamic stability and the patient has been under waiting list as there is no bed in ICU The case was discussed with substation superintendent Dr. Resendiz in [facility] and also Dr. Souza the consulting services manager who decided to go ahead and give TPA for this patient and heparin The patient received TPA and heparin followed by heparin for extensive right- sided pulmonary embolism Secondary to severe COVID-19 pneumonia Did not receive any vaccination for COVID-19 Received dexamethasone on admission and got first dose of remdesivir last night and will finish the course Requiring high flow oxygen to maintain saturation with FiO2 of 65% and flow rate 30 L/min Clinically stable Will provide spirometer and flutter valve Not being any better today She is complying with prone positioning Appreciate pulmonary input and recommendation Baricitinib has been added and and will keep her on the cylinder machine operator pulp drier side Has been getting Lasix routinely Condition remained unchanged and CTA did show pulmonary embolism as above Hypertension, slight elevated Lisinopril is on hold We will give Lasix to keep her on the cylinder machine operator pulp drier side Anxiety/mood disorder, at baseline Migraine attack secondary to illness DM2 on oral medications, well-controlled as of recent hemoglobin A1c of 5.19 November 2020 Basal insulin, ISS BG goal 1 10-1 40, carb count coverage, update hemoglobin A1c-6.3 as of 03/09/2021 DVT prophylaxis per Lovenox subcu Has been on TPN and will be given heparin followed by Risk and benefit of TPA was discussed with the patient by the substation superintendent Full code Admission and Anticipated Discharge Date Admission Date: March 10, 2021 Subjective 03/11/2021 The patient was seen and examined in medical telemetry unit She has been requiring high flow oxygen to maintain saturation and received remdesivir yesterday Feels shortness of breath with minimal exertion but better at rest 03/12/2029 The patient was seen and examined in medical telemetry unit She has been requiring more oxygen to maintain saturation She is complying with prone positioning 03/13/2021 The patient was seen and examined in medical telemetry unit and in the Covid room Her condition has not improved and is still requiring 40 L of oxygen with 100% FiO2 to maintain saturation 03/14/2021 The patient was seen and examined in medical telemetry unit and in the Covid room She has been getting any better and requiring high flow oxygen to maintain saturation We will sought advice from consulting services manager 03/15/2021 The patient was seen and examined in telemetry unit in Covid room She remains stable and is still requiring 4 L of oxygen to maintain saturation Clinically she feels a little bit better 03/16/2021 The patient was seen and examined in telemetry unit and in the Covid room She remains stable and has been requiring 40 L of oxygen with 100% FiO2 to maintain saturation As her condition has not been improving for the last 2 or 3 days CTA was ordered to rule out pulmonary embolism She did not have any chest pain, cough or hemoptysis Review of Systems Review of Systems: All systems reviewed and are unremarkable except as noted below Respiratory: Moderate shortness of breath at rest Physical Exam Physical Exam: Lying in bed in prone position with moderate shortness of br eath Constitutional: well developed, well nourished, + ill appearing and + obese Eyes: PERRL, conjunctivae normal, anicteric sclerae ENMT: external ear and nose normal, oropharynx normal Neck: trachea midline, no thyromegaly Respiratory: + cough; no respiratory distress Auscultation: + diminished lung sounds and + crackles (At the bases) Cardiovascular: Rate/Rhythm: regular rate and regular rhythm; not tachycardic Heart Sounds: normal S1 and normal S2; no murmur Extremities: + edema (Trace edema bilaterally) Gastrointestinal (Abdomen): Inspection/Auscultation: normal bowel sounds; abdomen not distended Percussion/Palpation: abdomen soft; abdomen nontender Musculoskeletal: No acute arthritis in any joint Skin: Flushed faces Neurologic: Alert, awake and oriented x3. Generally weak Results & Data Results & Data ([facility]) Vital Signs (Past 12 Hours) Vital Signs Temp Pulse Pulse Pulse Resp BP Pulse Ox 03/16/21 17:51 64 24 90 03/16/21 17:32 36.6 C 79 32 H 107/75 86 L 03/16/21 16:40 76 24 90 03/16/21 15:08 73 24 91 03/16/21 15:02 82 18 86 L 03/16/21 11:16 85 20 88 L 03/16/21 07:45 36.8 C 59 L 20 123/77 93 03/16/21 07:38 62 20 94 Laboratory Results Short CBC 03/16/21 Range/Units 06:27 WBC 10.90 H (4.8-10.8) K/uL Hgb 12.6 (12.0-16.0) g/dL Hct 39.0 (37-47) % Plt Count 325 (130-400) K/uL BMP 03/16/21 06:27 Sodium 143 Potassium 4.1 Chloride 108 H Carbon Dioxide 28 BUN 46 H Creatinine 1.01 Glucose 144 H Calcium 9.2 Medications Administered Current Inpatient Medications Acetaminophen (Acetaminophen 325 Mg Tab) 650 mg PO Q4H PRN PRN Reason: Pain or Fever Stop: 04/09/21 03:08 Last Admin: 03/11/21 11:45 Dose: 650 mg Documented by: Albuterol (Albuterol Hfa 8 Gm Inhaler) 2 puffs INH Q2R PRN PRN Reason: sob/wheeze Stop: 04/10/21 00:12 Baricitinib (4 Mg Once Daily X14 Days) 4 mg PO DAILY [facility]; Protocol Stop: 03/28/21 08:59 Last Admin: 03/16/21 09:37 Dose: 4 mg Documented by: Bupropion HCl (Bupropion Xl 150 Mg Tabcr) [facility] [place]: 04/09/21 08:59 Last Admin: 03/16/21 08:18 Dose: 150 mg Documented by: Buspirone HCl (Buspirone 5 Mg Tab) 10 mg PO QAM [facility] Stop: 04/09/21 08:59 Last Admin: 03/16/21 08:19 Dose: 10 mg Documented by: Clonazepam (Clonazepam 1 Mg Tab) 1 mg PO TID PRN PRN Reason: Anxiety Stop: 04/09/21 03:08 Last Admin: 03/15/21 22:21 Dose: 1 mg Documented by: Dextrose (Dextrose 50% 50 Ml Syringe) 25 - 50 ml IV UD PRN; Protocol PRN Reason: Hypoglycemia Protocol Stop: 04/09/21 03:08 Diclofenac Sodium (Diclofenac Sodium 75 Mg Tabcr) 75 mg PO BID [facility] Stop: 04/09/21 08:59 Last Admin: 03/16/21 08:19 Dose: 75 mg Documented by: Escitalopram Oxalate (Escitalopram Oxalate 10 Mg Tab) 30 mg PO QAM [facility] Stop: 04/09/21 08:59 Last Admin: 03/16/21 08:20 Dose: 30 mg Documented by: Famotidine (Famotidine 40 Mg Tablet) 40 mg PO QAM [facility] Stop: 04/09/21 08:59 Last Admin: 03/16/21 08:20 Dose: 40 mg Documented by: Glucagon (Glucagon For Inj 1 Mg Vial) 1 mg SQ UD PRN; Protocol PRN Reason: Hypoglycemia Protocol Stop: 04/09/21 03:08 Glucose (Glucose 10 Tabs/Tube) 4 - 8 tabs PO UD PRN; Protocol PRN Reason: Hypoglycemia Protocol Stop: 04/09/21 03:08 Glucose (Glucose 40% Gel 15 Gm Tube) 15 - 30 gm PO UD PRN; Protocol PRN Reason: Hypoglycemia Protocol Stop: 04/09/21 03:08 Heparin Sodium/Dextrose (Heparin Iv Adult Wt-Based Low-Dose *No* Bolus Protocol) 1 ea IV Q30M [facility]; Protocol Stop: 03/17/21 02:00 Hydromorphone HCl (Hydromorphone Hcl 2 Mg Tab) 4 mg PO QID PRN PRN Reason: severe headache Stop: 03/24/21 03:17 Hydroxyzine HCl (Hydroxyzine Hcl 25 Mg Tab) 25 mg PO HS [facility] [place] Stop: 04/09/21 04:14 Last Admin: 03/15/21 20:09 Dose: Not Given Documented by: Promethazine HCl 12.5 mg/ (Sodium Chloride) 50.5 mls @ 202 mls/hr IV Q6H PRN PRN Reason: Nausea And Vomiting Stop: 04/09/21 03:08 Last Infusion: 03/11/21 02:02 Dose: Infused Documented by: Dexamethasone 6 mg/ Syringe 1.5 mls @ 1 mls/min IV DAILY [facility] [place] Stop: 04/10/21 00:29 Last Admin: 03/16/21 08:19 Dose: 1 mls/min Documented by: Furosemide 40 mg/ Syringe 4 mls @ 4 mls/min IV DAILY [facility] [place] Stop: 04/14/21 09:29 Last Admin: 03/16/21 08:20 Dose: 4 mls/min Documented by: Alteplase, Recombinant 100 mg/ (EMPTY BAG) 100 mls @ 50 mls/hr IV NOW STA; Protocol Stop: 03/16/21 19:29 Last Admin: 03/16/21 18:05 Dose: 50 mls/hr Documented by: Heparin Sodium/Dextrose (Heparin Sodium/Dextrose) 25,000 units in 500 mls @ 0.02 mls/hr IV .Q24H [facility]; Protocol Stop: 04/15/21 20:59 Insulin Aspart (Insulin Aspart 100 Units/Ml 3 Ml Pen) 0 units SC ACHS [facility] [place] Stop: 04/09/21 03:29 Last Admin: 03/16/21 18:15 Dose: 1 units Documented by: Insulin Glargine (Insulin Glargine Solostar 100 Units/Ml 3 Ml Pen) 5 units SC DAILY [facility] [place] Stop: 04/09/21 05:59 Last Admin: 03/16/21 09:12 Dose: 5 units Documented by: Levalbuterol HCl (Levalbuterol Tartrate 15 Gm Hfa.Aer.Ad) 2 puffs INH QIDR [facility] [place] Stop: 04/09/21 06:59 Last Admin: 03/16/21 15:01 Dose: 2 puffs Documented by: Meclizine HCl (Meclizine Hcl 25 Mg Tab) 25 mg PO DAILY PRN PRN Reason: Vertigo Stop: 04/09/21 03:18 Miscellaneous (Carbohydrates For Hypoglycemia ) 15 - 30 gm PO UD PRN PRN Reason: Hypoglycemia Protocol Stop: 04/09/21 03:08 Miscellaneous (Ptt Post Tpa - Pending Order) 1 ea N/A Q1H [facility] [place] Stop: 03/17/21 01:01 Miscellaneous (Icu Protocol For Hyperglycemia) 1 ea N/A PRN PRN; Protocol PRN Reason: Hyperglycemia Protocol Stop: 03/18/21 18:17 Sucralfate (Sucralfate 1 Gm Tab) 1 gm PO ACHS [facility] [place] Stop: 04/09/21 07:29 Last Admin: 03/16/21 18:20 Dose: 1 gm Documented by:
--- NOTE | 2021-03-16 18:55 | Critical Care Consultation ---
Date of Consultation March 16, 2021 Assessment & Plan (1) Pneumonia due to COVID-19 virus: Reason Critically Ill: Leigh Carballo is a 35 year old female w/ PMHx of DM, anxiety/depression, rheumatoid arthritis, obesity, distant 2.5 pack yr hx tobacco who presents w/ covid pneumonia and worsened hypoxemic respiratory failure due to pulmonary embolism. She has received tPA treatment and was on high flow nasal cannula 40L earlier in evening. 15L Oxymask at time of writing. Neuro - [facility] ICU: negative anxiety/depression: home wellbutrin, buspar, lexapro, hydroxyzine 25mg (qhs) Cardiac - neg trop x1 continue monitoring via telemetry Respiratory - Covid pneumonia Continue dexamethasone, lasix acute hypoxic resp failure 2/2 covid and pulmonary embolism per CTA: 1. Extensive right-sided pulmonary emboli. 2. Extensive groundglass opacities throughout the lungs consistent with viral pneumonia. tPA ordered by pulmonary service O2 support as needed, currently on high flow. assess clinically for improvement s/p tpa and heparin drip GI - DM2 diet. GI PPx: pepcid 40 qam. RENAL/LYTES - No significant electrolyte derangement Replace lytes as needed. - Zhao. Strict Is/Os. cumulative 6.7L in 7.6L out. ENDO - DM2: SSI and low dose lantus No hx of thyroid disease RA:baricitinib 5mg PO daily. HEME - Stable H&H. Monitor. Will monitor for any drops in the setting of Heparin gtt ID - Monitor clinically and follow cbc. Afebrile. LINES/IV ACCESS - PIVs intact. DVT PROPHYLAXIS - SCDs. Heparin drip after tpa completes code: full (2) Diabetes: (3) Morbid obesity: (4) Hypertension: (5) Pulmonary embolism: History of Present Illness Reason for Consultation: submassive pulmonary embolism requiring TPA Attending Physician: Willie Lockwood MD History of Present Illness Leigh Carballo is a 35 y/o female w/ PMHx of DM, anxiety/depression, rheumatoid arthritis, obesity, distant 2.5 pack yr hx tobacco who presents w/ covid pneumonia. Onset of symptoms was on 03/03/21. She initially had fevers up to 103s F, but this has since broke. She attempted and outpatient therapy before hospital admission. Pulmonary service has been following. Today, patient was found to have extensive R PE on CT and tPA was started. She is currently feeling better than earlier. She felt she has been improving the past few days other than the breathing. Fatigue and appetite have been improving. Dyspnea is mostly w/ movement. She is not covid vaccinated. Allergies Allergy/AdvReac Type Severity Reaction Status Date / Time verapamil AdvReac Unknown "Black Out" Verified 03/09/21 21:49 Home Medications Medication Instructions Recorded Confirmed Type metformin 1,000 mg tablet 1,000 mg PO QAM 03/29/18 03/09/21 History bupropion HCl 150 mg 24 hr tablet, 150 mg PO QAM 02/13/20 03/09/21 History extended release chlorthalidone 25 mg tablet 25 mg PO QAM 02/13/20 03/09/21 History famotidine 40 mg tablet 40 mg PO QAM 02/13/20 03/09/21 History lisinopril 10 mg tablet 10 mg PO QAM 02/13/20 03/09/21 History sucralfate 1 gram tablet 1 g PO ACHS 02/13/20 03/09/21 History clonazepam 1 mg tablet 1 mg PO TID PRN 03/03/20 03/09/21 History escitalopram oxalate 10 mg tablet 30 mg PO QAM 03/03/20 03/09/21 History hydroxyzine HCl 25 mg tablet 25 - 50 mg PO HS 03/03/20 03/09/21 History meclizine 25 mg tablet 25 mg PO DAILY PRN 06/02/20 03/09/21 History diclofenac sodium 75 mg 75 mg PO BID #60 tab 07/28/20 03/09/21 Rx tablet,delayed release buspirone 10 mg tablet 10 mg PO QAM 12/02/20 03/09/21 History ketorolac 60 mg/2 mL intramuscular 30 mg IM WK PRN 30 Days #4 ml 01/12/21 03/09/21 Rx solution syringe with needle 3 mL 21 gauge #100 ea 01/12/21 Rx x 1 1/2" (BD Luer-Indira Syringe) hydromorphone 4 mg tablet 4 mg PO DAILY PRN 30 Days #8 tab 02/02/21 03/09/21 Rx Patient History Medical History (Updated 03/16/21 @ 19:50 by Archie Wallace MD) Anxiety Benign positional vertigo treated PRN Cervical radiculopathy Chronic migraine without aura with status migrainosus, not intractable Depression GERD (gastroesophageal reflux disease) Hx of endometriosis Hypertension Insomnia Kidney stones Lumbar spinal stenosis Nausea and vomiting after administration of anesthetic agent Peptic ulcer disease hx Pre-diabetes Sleep apnea bipap Surgical History H/O section (04/28/11) x1 History of cholecystectomy (01/27/13) History of dilatation and curettage History of esophagogastroduodenoscopy (EGD) History of laparoscopy History of ovarian cystectomy x2 S/P epidural steroid injection Family History Mother Diabetes Hypertension Stroke syndrome Chronic kidney disease Congestive heart failure Sarcoidosis Father Heart disease Hypertension Social History Smoking Status: Former smoker Second Hand Exposure: Yes (); Do You Dip or Chew Tobacco: No; Hx Alcohol Use: Yes Hx Substance Use: No Preferred Language: Sudanese Communication Ability: Effective Visual Impairment: No Limitations Hearing Ability: Normal Histological Illustrator Required: No Beliefs That Will Affect Care: None marital status: Current Living Situation: Family Current Living Situation Comment: , daugher and father current occupational status: employed 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 Other Information That Helps Us Care for You: No Feels Safe at Home: Yes Safety Concerns: Feels Safe At This Time Assistive Devices: Glasses and Oxygen - Continuous Review of Systems Review of Systems: All systems reviewed & are unremarkable except as noted in HPI & below Constitutional: Denies fever, chills Eyes: Denies blurry vision, vision changes ENT: Denies sore throat, sinus pain Cardiovascular: Denies chest pain, palpitations Respiratory: + dyspnea w/ movement Gastrointestinal: Denies abdominal pain, nausea, vomiting, constipation, diarrhea Genitourinary: Denies urinary symptoms including dysuria Musculoskeletal: Denies weakness, muscle aches/pain, joint aches/pain Neurological: Denies headache, numbness, tingling, focal weakness Physical Exam Physical Exam: General: Grossly A&O. NAD. Cooperative. Obese habitus. Able to speak in full sentences. HEENT: Atraumatic, normocephalic. EOMI. Pulm: CTAB. -wheezes, -rales, -rhonchi. No respiratory distress. Wearing high- flow nasal cannula. Cardiac: RRR, -mrg. Radial pulses intact and symmetrical. No LE edema. Abdominal: Nontender, nondistended, soft. Integ: Warm, dry, intact. : + zhao Results & Data Results & Data ([facility]) Vital Signs (Past 12 Hours) Vital Signs Temp Pulse Pulse Pulse Resp BP Pulse Ox 03/16/21 18:03 37 C 80 14 132/83 94 03/16/21 17:51 64 24 90 03/16/21 17:32 36.6 C 79 32 H 107/75 86 L 03/16/21 16:40 76 24 90 03/16/21 15:08 73 24 91 03/16/21 15:02 82 18 86 L 03/16/21 11:16 85 20 88 L 03/16/21 07:45 36.8 C 59 L 20 123/77 93 03/16/21 07:38 62 20 94 Laboratory Results wbc 10.9->14.58. Hb 13. MCV 78.2L. coags pending. abg 03/15/21 7.52H/35/67L/28H. electrolytes ok. BUN 46H. Phos 5.0H. crp 2.64H. 03/10 UC probable skin kwaku. 03/16/21 18:52 03/16/21 06:27 Diagnostic Findings Chest X-Ray 03/15/21 21:35 XR chest 1V portable INDICATION: MN ^low o2 . TECHNIQUE: Single frontal radiograph of the chest was obtained. Comparison: None available at the time of this dictation. FINDINGS: No lines and tubes are seen. The cardiomediastinal silhouette is normal. Prominence and cephalization of the vasculature is seen. Faint multifocal airspace opacities are seen. No evidence of pleural effusion or pneumothorax. IMPRESSION: No acute chest disease. ACT 112: Negative or not required by law. Electronically signed by: Mike Jacobs M.D. 03/16/2021 7:48 AM Chest CTA 03/16/21 13:27 CT ANGIOGRAPHY OF THE CHEST, PULMONARY EMBOLUS PROTOCOL CLINICAL HISTORY: R/O PE,Covid 19 Pneumonia COMPARISON STUDY: Chest CT July 26, 2016. Chest radiograph performed earlier today. TECHNIQUE: Following IV administration of 119 mL of Optiray, helical axial images of the chest were obtained utilizing the pulmonary embolus protocol. Maximal intensity projections and sagittal and coronal reformats were viewed on an independent 3D workstation. IV contrast was administered without complication. Automated exposure control was utilized for the study. A dose lowering technique was utilized adhering to the principles of ALARA. CT DOSE: 696.36 mGycm FINDINGS: Note is made of extensive right-sided pulmonary emboli. There are pulmonary emboli within the distal right pulmonary artery as well as emboli within the lobar and segmental branches of the right lung. No left-sided pulmonary emboli are identified although exam is compromised by respiratory motion. There is no pericardial effusion. Extensive groundglass opacities within the lungs are noted. Central airways are patent. There is no consolidation. IMPRESSION: 1. Extensive right-sided pulmonary emboli. Findings discussed with Patel Cárdenas at time of dictation. 2. Extensive groundglass opacities throughout the lungs consistent with viral pneumonia. ACT 112: Negative or not required by law. Electronically signed by: Ady Mccracken M.D. 03/16/2021 5:00 PM ECG Additional Comments: Vent. Rate : 083 BPM Atrial Rate : 083 BPM P-R Int : 138 ms QRS Dur : 084 ms QT Int : 376 ms P-R-T Axes : 042 033 -02 degrees QTc Int : 441 ms Poor data quality, interpretation may be adversely affected Normal sinus rhythm Nonspecific ST and T wave abnormality Abnormal ECG When compared with ECG of 03-JUN-2020 10:03, Nonspecific T wave abnormality now evident in Anterior leads Confirmed by Nawaf Henry ([id number]) on 03/11/2021 6:27:16 AM Resident Activity Tracking Resident Involvement: Resident Care Provided Care Provided: Adult Hospital Medicine
[2021-03-16 19:11] LABS: Basophils # (auto) 0.01 K/uL (0-0.2); Basophils % (auto) 0.1 %; Eosinophils # (auto) 0.02 K/uL (0-0.5); Eosinophils % (auto) 0.1 %; Hematocrit (blood only) 39.8 % (37-47); Immature Granulocytes # (auto) 0.08 K/uL (0.00-0.02); Immature Granulocytes % (auto) 0.5 %; Lymphocytes # (auto) 0.78 K/uL (1.2-3.4); Lymphocytes % (auto) 5.3 %; Mean Corpuscular Hemoglobin 25.5 pg (25-34); Mean Corpuscular Volume 78.2 fL (80-100); Mean Platelet Volume 9.3 fL (7.4-10.4); Monocytes # (auto) 0.49 K/uL (0.11-0.59); Monocytes % (auto) 3.4 %; Neutrophils % (auto) 90.6 %; Platelet Count 335 K/uL (130-400); RDW Coefficient of Variation 15.8 % (11.5-14.5); RDW Standard Deviation 45.7 fL (36.4-46.3); Red Blood Count 5.09 M/uL (4.2-5.4); White Blood Count 14.58 K/uL (4.8-10.8)
[2021-03-16 19:25] LABS: Mean Corpuscular Hgb Conc 32.7 g/dL (32-36)
[2021-03-16 19:33] LABS: Fibrinogen 244 mg/dl (184-400); INR 1.1 (0.9-1.1); Partial Thromboplastin Ratio 0.9; Partial Thromboplastin Time 24.5 Seconds (21.0-31.0); Prothrombin Time 11.4 Seconds (9.0-12.0)
--- NOTE | 2021-03-16 20:10 | Communication Note ---
Date of Service: March 16, 2021 Made aware by RN of epistaxis from right nostril while TPA ongoing. Patient without headache symptoms as per RN. AP Epistaxis Ongoing IV TPA for submassive PE Stop TPA, hold scheduled IV heparin CBC now ICU provider updated of developments.
[2021-03-16] MEDS ORDERED: OXYMETAZOLINE 0.05% 30 ML BTL STA (20:24)
--- NOTE | 2021-03-16 21:02 | Communication Note ---
Date of Service: March 16, 2021 2015: Received a call from Dr. Betancourt ([facility] Hospitalist) that patient had developed epistaxis during TPA administration. He did place orders to d/c re maining TPA drip and to put Heparin gtt on hold. I did present to bedside to evaluate patient. She is A&Ox4. Nonlabored breathing. Saturating well with sats in the low 90s on HFNC with nasal prong in the LEFT nostril only. She is normotensive. RIGHT nostril is packed with tissues. Despite this, there is no appreciable active bleeding or saturation through the tissue. This had been placed ~15 min before my assessment. Using a tongue depressor, I did assess the back of the patient's throat. There did appear to be some bright red blood in the posterior pharyngeal wall, but no active bleeding was appreciated. Patient has not been tasting blood. She has not been spitting up blood. She does report that she has had bleeding from this nostril on and off over the past few days. She does admit that this bleeding was more intense. Otherwise, she feels well. She is without complaints of headaches, visual changes, shortness of breath, unilateral weakness/numbness, nausea/vomiting, or abdominal pain. Clinically, she is well appearing. Given the recent TPA administration and the fact that she has not bled through her packing at this point, I deferred removal of tissue packing at this time. I did instruct nursing staff to reassess in 20- 30 min and remove packing at that time. If she is without bleeding, we can utilize a topical lubricant (Vaseline) to help moisturize nasal mucosa. If she is noted to have return of bleeding, she will likely require nasal packing. I did discuss with her that if her bleeding were to worsen and/or respiratory status were to become compromised, patient would possibly require endotracheal intubation for airway protection and better oxygen delivering method as she will likely only be able to tolerate NFNC through on notril until bleeding were to stop. This was discussed with patient and nursing staff. Will collect equipment in case the patient were to require nasal packing. Its with hopes that the patient's bleeding subsides as the TPA wears off over the next few to several hours. I have personally spent 38 minutes of critical care time in the direct management of this patient. This is a life/limb threatening event. This includes time spent evaluating patient, direct bedside care, chart review, placing orders, interpretation of diagnostic studies, discussion with consultants, patient, and family members, as well as other required patient management activities. This time is exclusive of all separately billable procedures, and teaching time and separate from and in addition to any other critical care service time. Coding Level of Care Code Critical Care ea addt'l 30 min Time Spent (min) 38
[2021-03-16] MEDS: clonazePAM 1 MG TAB PO PRN (22:11)
[2021-03-16] MEDS: hydrOXYzine HCl 25 MG TAB PO SCH (22:12)
[2021-03-17 03:34] LABS: Partial Thromboplastin Time 26.3 Seconds (21.0-31.0)
[2021-03-17 03:37] LABS: Fibrinogen 126 mg/dl (184-400)
[2021-03-17] MEDS: HEPARIN SODIUM/DEXTROSE 25,000 UNITS/500 ML BAG IV SCH (05:14)
[2021-03-17 06:13] LABS: Eosinophils # (auto) 0.14 K/uL (0-0.5); Eosinophils % (auto) 0.9 %; Hemoglobin 13.2 g/dL (12.0-16.0); Immature Granulocytes # (auto) 0.06 K/uL (0.00-0.02); Immature Granulocytes % (auto) 0.4 %; Lymphocytes # (auto) 1.16 K/uL (1.2-3.4); Lymphocytes % (auto) 7.5 %; Mean Corpuscular Hemoglobin 26.3 pg (25-34); Mean Corpuscular Volume 79.8 fL (80-100); Mean Platelet Volume 9.5 fL (7.4-10.4); Monocytes # (auto) 0.48 K/uL (0.11-0.59); Monocytes % (auto) 3.1 %; Neutrophils # (auto) 13.61 K/uL (1.4-6.5); Neutrophils % (auto) 88.1 %; Platelet Count 280 K/uL (130-400); RDW Coefficient of Variation 15.9 % (11.5-14.5); RDW Standard Deviation 46.3 fL (36.4-46.3); Red Blood Count 5.01 M/uL (4.2-5.4); White Blood Count 15.45 K/uL (4.8-10.8)
[2021-03-17 06:22] LABS: Fibrinogen 156 mg/dl (184-400); INR 1.3 (0.9-1.1); Partial Thromboplastin Time 26.8 Seconds (21.0-31.0); Prothrombin Time 12.9 Seconds (9.0-12.0)
[2021-03-17 07:24] LABS: Albumin Globulin Ratio 0.6 (0.9-2); Albumin Level 2.7 gm/dl (3.4-5.0); BUN Creatinine Ratio 44.3 (10-20); Bilirubin,Total 0.6 mg/dl (0.2-1); Calcium 9.1 mg/dl (8.5-10.1); Creatinine Clr Calc Pharmacy 105.2 ml/min; Est GFR (Non-African American) 69.9 ml/min; Globulin 4.3 gm/dl (2.5-4.0); Magnesium 2.4 mg/dl (1.8-2.4); Phosphorus 4.2 mg/dl (2.5-4.9); Potassium 3.7 mmol/L (3.5-5.1)
--- NOTE | 2021-03-17 08:16 | XRay Report ---
XR chest 1V portable HISTORY: 35 years-old Female covid acute shortness of breath COMPARISON: CTA of the chest 03/16/2021, chest radiograph 03/15/2021 TECHNIQUE: Portable AP view of the chest FINDINGS: Cardiac silhouette is enlarged. Pulmonary vascular congestion. Ill-defined bilateral airspace opaciti es have mildly progressed from comparison. No pneumothorax, or pleural effusion. No acute fracture. IMPRESSION: Progressively worsened bilateral pulmonary opacities suggestive of viral pneumonia. ACT 112: Negative or not required by law. The above report was generated using voice recognition software. It may contain grammatical, syntax o r spelling errors. Electronically signed by: Dago De La Rosa M.D. 03/17/2021 8:14 AM
[2021-03-17] MEDS: LEVALBUTEROL TARTRATE 15 GM HFA.AER.AD INH SCH ×2 (08:17→16:35)
[2021-03-17] MEDS: DICLOFENAC SODIUM 75 MG TABCR PO SCH (08:34)
[2021-03-17] MEDS: ESCITALOPRAM OXALATE 10 MG TAB PO SCH (08:34)
[2021-03-17] MEDS: buPROPion XL 150 MG TABCR PO SCH (08:34)
[2021-03-17] MEDS: dexAMETHasone 6 MG in SYRINGE 0 ML IV SCH (08:35)
--- NOTE | 2021-03-17 08:35 | Critical Care Progress Note ---
Date of Service March 17, 2021 Assessment & Plan (1) Pneumonia due to COVID-19 virus: Plan: Reason Critically Ill: Leigh Carballo is a 35 year old female w/ PMHx of DM, anxiety/depression, rheumatoid arthritis, obesity, distant 2.5 pack yr hx tobacco who presents w/ covid pneumonia and worsened hypoxemic respiratory failure due to pulmonary embolism. She has received almost a full course of tPA. Patient was not inbutaed at the time of my interview this AM. There was discussion of possibly needing intubation if her respiratory status worsens. Neuro - [facility] ICU: negative anxiety/depression: hold home PO meds Cardiac - neg trop x1 continue monitoring via telemetry Respiratory - Covid pneumonia Continue dexamethasone, lasix. Stopped baricitinib acute hypoxic resp failure 2/2 covid and pulmonary embolism per CTA: 1. Extensive right-sided pulmonary emboli. 2. Extensive groundglass opacities throughout the lungs consistent with viral pneumonia. tPA ordered by pulmonary service O2 support as needed, currently on high flow. cxr 03/17: worsened compared to 03/16. More pulm vasc congeston and opacities. Update: in afternoon ~noon, patient required intubation for impending respiratory failure. GI - DM2 diet. GI PPx: pepcid 40 IV qam. RENAL/LYTES - No significant electrolyte derangement Replace lytes as needed. - Zhao. Strict Is/Os. Cumulative 7.8L in 8L out. ENDO - DM2: SSI and low dose lantus. ICU hyperglycemia protocol. No hx of thyroid disease HEME - Stable H&H. Monitor. Will monitor for any drops in the setting of Heparin gtt ID - Monitor clinically and follow cbc. Afebrile. LINES/IV ACCESS - PIVs intact. Update: + [facility] central venous catheter. Right A line. DVT PROPHYLAXIS - SCDs. Heparin drip. code: full (2) Diabetes: (3) Morbid obesity: (4) Hypertension: (5) Pulmonary embolism: Admission and Anticipated Discharge Date Admission Date: March 10, 2021 Supervising Physician Co-Signing Physician Notes Sats into the mid to low 80s during meals. Feels improved while on CPAP. Echo reviewed. In discussion with the patient the patient felt that she was continuing to worsen from a respiratory standpoint is becoming increasingly tired. We discussed risks and benefits of intubation as well as central venous access and arterial line access and she is agreeable with all procedures. She was successfully intubated and we initiated pronation therapy. Subjective TPA interrupted near completion because had epistaxis overnight. This AM, nursing noted patient had some increased work of breathing. She was on 40L high flow, but didn't tolerate it too well. She was more comfortable on cpap 8 80%. She has mild dyspnea at the time of my interview. No other complaints. Review of Systems Review of Systems: All systems reviewed & are unremarkable except as noted in HPI & below Constitutional: Denies fever, chills Eyes: Denies blurry vision Cardiovascular: Denies chest pain, palpitations Respiratory: + dyspnea, especially w/ movement Gastrointestinal: Denies abdominal pain, nausea, vomiting, constipation, diarrhea Genitourinary: + zhao Musculoskeletal: Denies weakness, muscle aches/pain, joint aches/pain Neurological: Denies headache, numbness, tingling, focal weakness Physical Exam Physical Exam: General: Grossly A&O. NAD. Cooperative. Obese habitus. Able to speak in full sentences. HEENT: Atraumatic, normocephalic. Pulm: CTAB. -wheezes, -rales, -rhonchi. Mild accessory muscle use. Wearing high- flow nasal cannula. Cardiac: RRR, -mrg. Radial pulses intact and symmetrical. No LE edema. Abdominal: Nontender, nondistended, soft. Integ: Warm, dry, intact. : + zhao Results & Data Results & Data ([facility]) Vital Signs (Past 12 Hours) Vital Signs Pulse Pulse Resp BP Pulse Ox 03/17/21 08:22 103 H 20 88 L 03/17/21 04:57 74 26 H 90 03/17/21 04:47 64 34 H 120/72 88 L 03/17/21 04:17 62 31 H 121/81 89 L 03/17/21 03:17 61 26 H 115/74 89 L 03/17/21 02:47 68 24 121/68 89 L 03/17/21 02:17 68 25 H 121/75 88 L 03/17/21 01:46 60 30 H 115/70 88 L 03/17/21 01:17 61 36 H 109/76 88 L 03/17/21 00:46 64 30 H 112/75 89 L 03/17/21 00:17 58 L 25 H 122/79 91 03/17/21 00:13 67 24 90 03/16/21 23:47 87 23 109/85 85 L 03/16/21 23:16 92 H 26 H 130/96 90 03/16/21 22:55 88 22 89 L 03/16/21 22:46 81 21 114/92 87 L 03/16/21 22:16 78 22 126/88 88 L 03/16/21 21:46 79 36 H 142/90 H 89 L 03/16/21 21:16 83 28 H 130/98 90 03/16/21 20:47 80 24 135/78 88 L Laboratory Results wbc 10.9->14.58->15.45. Hb stable 13.2. MCV 79.8. INR 1.1->1.3. fibrinogen 244- >156. electrolytes ok. cxr worsened opacities and pulm vasc congestion Cardiac Enzymes 03/17/21 Range/Units 05:32 AST 39 H (15-37) U/L Coagulation 03/16/21 03/17/21 03/17/21 Range/Units 18:52 02:28 05:32 PT 11.4 12.9 H (9.0-12.0) Seconds APTT 24.5 26.3 26.8 (21.0-31.0) Seconds CBC 03/16/21 03/17/21 Range/Units 18:52 05:32 WBC 14.58 H 15.45 H (4.8-10.8) K/uL RBC 5.09 5.01 (4.2-5.4) M/uL Hgb 13.0 13.2 (12.0-16.0) g/dL Hct 39.8 40.0 (37-47) % Plt Count 335 280 (130-400) K/uL Neut # (Auto) 13.20 H 13.61 H (1.4-6.5) K/uL Lymph # (Auto) 0.78 L 1.16 L (1.2-3.4) K/uL [place] # (Auto) 0.49 0.48 (0.11-0.59) K/uL Eos # (Auto) 0.02 0.14 (0-0.5) K/uL Baso # (Auto) 0.01 0.00 (0-0.2) K/uL Comprehensive Metabolic Panel 03/17/21 Range/Units 05:32 Sodium 141 (136-145) mmol/L Potassium 3.7 (3.5-5.1) mmol/L Chloride 105 (98-107) mmol/L Carbon Dioxide 27 (21-32) mmol/L BUN 46 H (7-18) mg/dl Creatinine 1.03 (0.6-1.2) mg/dl Glucose 101 H (70-99) mg/dl Calcium 9.1 (8.5-10.1) mg/dl AST 39 H (15-37) U/L ALT 22 (12-78) U/L Alkaline Phosphatase 76 (45-117) U/L Total Protein 7.0 (6.4-8.2) gm/dl Albumin 2.7 L (3.4-5.0) gm/dl Intake and Output 03/16/21 03/17/21 03/17/21 22:59 06:59 14:59 Intake Total 240 / 360 120 / 360 41.333 / 41.333 Balance 240 / -640 120 / -640 41.333 / 41.333 Intake: IV 41.333 / 41.333 Heparin Sodium/Dextrose 25,000 41.333 / 41.333 units In 500 ml @ 1,000 UNITS/ HR 20 mls/hr IV .Q24H [facility] Rx#: [id number] Oral 240 / 360 120 / 360 Other: Weight 131.6 kg Weight Measurement Method Built in [facility] Diagnostic Findings Chest X-Ray 03/17/21 08:00 XR chest 1V portable HISTORY: 35 years-old Female covid acute shortness of breath COMPARISON: CTA of the chest 03/16/2021, chest radiograph 03/15/2021 TECHNIQUE: Portable AP view of the chest FINDINGS: Cardiac silhouette is enlarged. Pulmonary vascular congestion. Ill-defined bilateral airspace opacities have mildly progressed from comparison. No pneumothorax, or pleural effusion. No acute fracture. IMPRESSION: Progressively worsened bilateral pulmonary opacities suggestive of viral pneumonia. ACT 112: Negative or not required by law. The above report was generated using voice recognition software. It may contain grammatical, syntax or spelling errors. Electronically signed by: Dago De La Rosa M.D. 03/17/2021 8:14 AM Chest X-Ray 03/17/21 11:55 XR chest 1V portable HISTORY: 35 years-old Female lines acute respiratory failure COMPARISON: Chest radiograph of same day at 7:06 AM, CTA chest 03/16/2021 TECHNIQUE: Portable AP view of the chest FINDINGS: Endotracheal tube overlies the midline, 4.5 cm superior to the yosef. Enteric tube courses below the diaphragm outside the [id number]. Left IJ central venous catheter distal tip terminates in the expected location of the brachiocephalic SVC confluence. No pneumothorax. Cardiac silhouette is enlarged. Pulmonary vascular congestion with extensive bilateral ill-defined pulmonary opacities, stable from comparison. No large pleural effusion. No acute fracture. IMPRESSION: 1. Lines and tubes as above. 2. No pneumothorax. 3. No significant change of the multifocal pneumonia. ACT 112: Negative or not required by law. The above report was generated using voice recognition software. It may contain grammatical, syntax or spelling errors. Electronically signed by: Dago De La Rosa M.D. 03/17/2021 1:01 PM Critical Care Time I have personally spent 70 minutes of critical care time in the direct management of this patient. This is a life/limb threatening event. This includes time spent evaluating patient, direct bedside care, chart review, placing orders, interpretation of diagnostic studies, discussion with consultants, patient, and/or family members regarding treatment decisions, as well as other required patient management activities. This time is exclusive of all separately billable procedures, and teaching time and separate from and in addition to any other critical care service time. Resident Activity Tracking Resident Involvement: Resident Care Provided Care Provided: Adult Hospital Medicine
[2021-03-17] MEDS: busPIRone 5 MG TAB PO SCH (08:36)
[2021-03-17] MEDS: SUCRALFATE 1 GM TAB PO SCH ×4 (08:37→21:26)
[2021-03-17] MEDS: FUROSEMIDE 40 MG in SYRINGE 0 ML IV SCH (08:37)
[2021-03-17] MEDS: FAMOTIDINE 40 MG TABLET PO SCH (08:38)
[2021-03-17] MEDS: INSULIN ASPART 100 UNITS/ML 3 ML PEN SC SCH ×4 (08:40→22:02)
[2021-03-17] MEDS: INSULIN GLARGINE SOLOSTAR 100 UNITS/ML 3 ML PEN SC SCH (08:44)
[2021-03-17] MEDS ORDERED: PERFLUTREN LIPID MICROSPHERE (DEFINITY) IV ONE (10:05)
[2021-03-17] MEDS ORDERED: RAPID SEQUENCE INDUCTION BAG ONE (10:47)
[2021-03-17] MEDS ORDERED: ROCURONIUM BROMIDE 10 MG/ML 5 ML VIAL IV PRN (10:48)
[2021-03-17] MEDS ORDERED: STAT IV Infusion **Titration per Protocol STA ×2 (10:48→11:38)
[2021-03-17] MEDS ORDERED: PROPOFOL IV EMULSION 10 MG/ML 100 ML VIAL IV ONE (10:52)
[2021-03-17] MEDS ORDERED: VECURONIUM BROMIDE 10 MG VIAL IV ONE (11:03)
[2021-03-17] MEDS: fentaNYL DRIP 1,250 MCG/250 ML BAG IV SCH ×2 (12:14→22:03)
[2021-03-17] MEDS: propofoL 1,000 MG/100 ML VIAL IV SCH ×4 (12:14→22:03)
--- NOTE | 2021-03-17 12:26 | Procedure Note ---
Procedure Note Date of Service March 17, 2021 Note Date: Noted above Procedure: Endotracheal intubation Pre-procedure Diagnosis: Hypoxic respiratory failure from COVID-19 pneumonia Post-procedure Diagnosis: same as above Prior to Procedure: Informed Consent: Verbal consent obtained after discussion of risks and benefits Attending Staff: Chance Guerrero DO The identity of the patient was confirmed and a bedside time out was performed. Description of Procedure: Patient was evaluated and required intubation for impending respiratory failure. The patient was prepared in the usual fashion. A video 3 laryngoscope was used. A 8 mm inner diameter endotrachial tube was placed endotracheally to 23 cm at the teeth. A grade 1 view was obtained. The endotracheal tube was noted to pass through the vocal cords. Chest rise was bilateral. Bilateral breath sounds were heard without air sounds in the abdomen. Mist was noted in the endotracheal tube. End-tidal CO2 measurement was positive. Chest x-ray shows proper endotracheal tube placement. Complications: desaturation into high 60's which responded to bag valve ventilation Findings: Not applicable Specimens: Not applicable Estimated blood loss: Zero Coding CPT Codes Resuscitation - Resuscitation: 32938 Endotracheal Intubation, emergency ([id number]) [facility] Procedure Codes (Charges) Resuscitation Resuscitation: 71605 Endotracheal Intubation, emergency
--- NOTE | 2021-03-17 12:28 | Procedure Note ---
Procedure Note Date of Service March 17, 2021 Note Procedure date: Noted above Procedure: Radial artery cannulation Pre-procedure Diagnosis: Need for invasive monitoring, hypotension/frequent blood draws Post-procedure Diagnosis: same as above Prior to Procedure: Informed Consent: The risks, benefits, indications, potential complications, and alternatives were explained to the patient and verbal informed consent obtained. Attending Staff: Chance Guerrero DO Skin Prep: Chlorhexidine Anesthesia: 3 mL 1% lidocaine without epinephrine The identity of the patient was confirmed and a bedside time out was performed. Description of Procedure: After sterile prep and sterile drape utilizing standard sterile technique the superficial skin of the left radial artery was anesthetized. The target artery was identified via dynamic ultrasound guidance and entered with a 20-gauge arrow Angiocath. Pulsatile bright red blood return was noted. Via modified Seldinger technique the self-contained guidewire was advanced and the Angiocath advanced over the guidewire. The guidewire was re moved and brisk arterial blood return was noted. The pressure monitor was connected, and the arterial line was secured via commercial securement device. A sterile dressing was then applied. Complications: None Estimated blood loss: Trace Patient tolerated the procedure well. Coding CPT Codes Tubes, Drains, and Vasc Access - Tubes, Drains, and Vasc Access: [id number] Place Catheter In Artery ([id number]) [facility] [place] Procedure Codes (Charges) Tubes, Drains, and Vasc Access Procedure 1: Tubes, Drains, and Vasc Access: [id number] Place Catheter In Artery
--- NOTE | 2021-03-17 12:30 | Procedure Note ---
Procedure Note Date of Service March 17, 2021 Note Procedure date: Noted above Procedure: Central venous access Pre-procedure indication: Need for vasoactive medication administration Post-procedure Diagnosis: same as above Prior to Procedure: Informed Consent: The risks, benefits, indications, potential complications, and alternatives were explained to the patient and verbal informed consent obtained. Attending Staff: Chance Guerrero DO Resident/APC: Not applicable Skin Prep: Chlorhexidine Anesthesia: 4 mL 1% lidocaine without epinephrine The identity of the patient was confirmed and a bedside time out was performed. Description of Procedure: After sterile prep and sterile drape utilizing standard sterile technique the superficial skin of the left internal jugular area was anesthetized. The target vessel was identified and entered with an 18- gauge needle. Dark venous blood return was noted. A guidewire was inserted through the needle and into the vessel. The needle was withdrawn and a skin doreen was made. A tissue dilator was advanced via Seldinger technique and removed. A triple lumen catheter was inserted via Seldinger technique and the guidewire removed. All ports elie and flushed easily. A Biopatch was placed, and the catheter was secured via silk suture. A sterile dressing was then applied. Complications: None Estimated blood loss: Trace Patient tolerated the procedure well. Coding CPT Codes Tubes, Drains, and Vasc Access - Tubes, Drains, and Vasc Access: [id number] Insertion Of Non-tunneled Catheter Age 4 Yrs> ([id number]) [facility] [place] Procedure Codes (Charges) Tubes, Drains, and Vasc Access Procedure 1: Tubes, Drains, and Vasc Access: [id number] Insertion Of Non-tunneled Catheter Age 4 Yrs>
--- NOTE | 2021-03-17 13:02 | XRay Report ---
XR chest 1V portable HISTORY: 35 years-old Female lines acute respiratory failure COMPARISON: Chest radiograph of same day at 7:06 AM, CTA chest 03/16/2021 TECHNIQUE: Portable AP view of the chest FINDINGS: Endotracheal tube overlies the midline, 4.5 cm superior to the yosef. Enteric tube courses below the diaphragm outside the [id number]. Left IJ central venous catheter distal tip terminates in the ex pected location of the brachiocephalic SVC confluence. No pneumothorax. Cardiac silhouette is enlarge d. Pulmonary vascular congestion with extensive bilateral ill-defined pulmonary opacities, stable fro m comparison. No large pleural effusion. No acute fracture. IMPRESSION: 1. Lines and tubes as above. 2. No pneumothorax. 3. No significant change of the multifocal pneumonia. ACT 112: Negative or not required by law. The above report was generated using voice recognition software. It may contain grammatical, syntax o r spelling errors. Electronically signed by: Dago De La Rosa M.D. 03/17/2021 1:01 PM
[2021-03-17 13:20] LABS: Eosinophils # (auto) 0.22 K/uL (0-0.5); Eosinophils % (auto) 1.1 %; Hemoglobin 13.1 g/dL (12.0-16.0); Immature Granulocytes % (auto) 0.5 %; Mean Corpuscular Hemoglobin 26.1 pg (25-34); Mean Corpuscular Hgb Conc 32.8 g/dL (32-36); Mean Corpuscular Volume 79.7 fL (80-100); Mean Platelet Volume 9.7 fL (7.4-10.4); Monocytes # (auto) 0.71 K/uL (0.11-0.59); Monocytes % (auto) 3.6 %; Neutrophils # (auto) 18.35 K/uL (1.4-6.5); Neutrophils % (auto) 92.8 %; Platelet Count 344 K/uL (130-400); RDW Coefficient of Variation 16.2 % (11.5-14.5); RDW Standard Deviation 46.9 fL (36.4-46.3); Red Blood Count 5.02 M/uL (4.2-5.4); White Blood Count 19.78 K/uL (4.8-10.8)
[2021-03-17] MEDS: ARTIFICIAL TEARS OP OINT 3.5 GM TUBE OP SCH ×3 (13:24→21:32)
[2021-03-17] MEDS: CISATRACURIUM BESYLATE 40 MG in 0.9 % SODIUM CHLORIDE 80 ML IV SCH ×3 (13:24→18:32)
[2021-03-17] MEDS: dexAMETHasone 10 MG in SYRINGE 0 ML IV SCH (13:25)
[2021-03-17] MEDS: PROPOFOL BOLUS FROM BAG IV PRN (13:27)
[2021-03-17 13:36] LABS: Partial Thromboplastin Ratio 1.1; Partial Thromboplastin Time 27.9 Seconds (21.0-31.0)
[2021-03-17] MEDS: PEPTAMEN INTENSE VHP 1.0 CAL 1,000 ML BAG GT SCH (15:05)
[2021-03-17] MEDS ORDERED: HEPARIN SOD (PORCINE) 1000 UNIT/ML IV ONE ×2 (15:56→16:30)
[2021-03-17] MEDS: 4 mg Once Daily x14 days PO SCH (16:49)
[2021-03-17 17:22] LABS: Fibrinogen 338 mg/dl (184-400)
[2021-03-17] MEDS: ICU ELECTROLYTE REPLACEMENT PROTOCOL SCH (17:30)
[2021-03-17 17:35] LABS: Basophils # (auto) 0.01 K/uL (0-0.2); Basophils % (auto) 0.1 %; Eosinophils # (auto) 0.06 K/uL (0-0.5); Eosinophils % (auto) 0.4 %; Hemoglobin 12.2 g/dL (12.0-16.0); Immature Granulocytes # (auto) 0.11 K/uL (0.00-0.02); Immature Granulocytes % (auto) 0.6 %; Lymphocytes # (auto) 0.48 K/uL (1.2-3.4); Lymphocytes % (auto) 2.8 %; Mean Corpuscular Hemoglobin 26.1 pg (25-34); Mean Corpuscular Hgb Conc 32.1 g/dL (32-36); Mean Corpuscular Volume 81.2 fL (80-100); Mean Platelet Volume 9.6 fL (7.4-10.4); Monocytes # (auto) 0.33 K/uL (0.11-0.59); Monocytes % (auto) 1.9 %; Neutrophils # (auto) 16.12 K/uL (1.4-6.5); Neutrophils % (auto) 94.2 %; Platelet Count 296 K/uL (130-400); RDW Coefficient of Variation 16.2 % (11.5-14.5); RDW Standard Deviation 48.3 fL (36.4-46.3); Red Blood Count 4.68 M/uL (4.2-5.4); White Blood Count 17.11 K/uL (4.8-10.8)
--- NOTE | 2021-03-17 17:49 | Billing Data ---
Date of Service March 17, 2021 Coding Level of Care Code Critical Care 1st - mins
--- NOTE | 2021-03-17 19:50 | Hospitalist Progress Note ---
Date of Service March 17, 2021 Assessment & Plan (1) Acute hypoxemic respiratory failure: Plan: Extensive right-sided pulmonary embolism Increasing shortness of breath and requiring 100% FiO2 at 40 L/min to maintain saturation CTA did show extensive right-sided pulmonary embolism no echocardiogram was available to assess RV strain The patient remained hemodynamically stable The case discussed with steam plant records clerk in [place] Dr. Jacques and was not advised for any TPN given the hemodynamic stability and the patient has been under waiting list as there is no bed in ICU The case was discussed with steam plant records clerk Dr. Resendiz in [facility] and also Dr. Souza the laundry assistant who decided to go ahead and give TPA for this patient and heparin The patient received TPA and followed by intravenous heparin Status post intubation on 03/17/2021 and remains sedated Management as per steam plant records clerk Secondary to severe COVID-19 pneumonia Did not receive any vaccination for COVID-19 Received dexamethasone on admission and got first dose of remdesivir last night and will finish the course Requiring high flow oxygen to maintain saturation with FiO2 of 65% and flow rate 30 L/min Will provide spirometer and flutter valve Not being any better today She is complying with prone positioning Appreciate pulmonary input and recommendation Baricitinib has been added and and will keep her on the continuous drier operator side Has been getting Lasix routinely Dexamethasone dose has been increased to 10 mg daily and has been getting furosemide daily Hypertension, slight elevated Lisinopril is on hold We will give Lasix to keep her on the continuous drier operator side Anxiety/mood disorder, at baseline Migraine attack secondary to illness DM2 on oral medications, well-controlled as of recent hemoglobin A1c of 5.19 November 2020 Basal insulin, ISS BG goal 1 10-1 40, carb count coverage, update hemoglobin A1c-6.3 as of 03/09/2021 DVT prophylaxis per Lovenox subcu Has been on TPN and will be given heparin followed by Risk and benefit of TPA was discussed with the patient by the steam plant records clerk The family members have been updated by the steam plant records clerk Full code Admission and Anticipated Discharge Date Admission Date: March 10, 2021 Subjective 03/11/2021 The patient was seen and examined in medical telemetry unit She has been requiring high flow oxygen to maintain saturation and received remdesivir yesterday Feels shortness of breath with minimal exertion but better at rest 03/12/2029 The patient was seen and examined in medical telemetry unit She has been requiring more oxygen to maintain saturation She is complying with prone positioning 03/13/2021 The patient was seen and examined in medical telemetry unit and in the Covid room Her condition has not improved and is still requiring 40 L of oxygen with 100% FiO2 to maintain saturation 03/14/2021 The patient was seen and examined in medical telemetry unit and in the Covid room She has been getting any better and requiring high flow oxygen to maintain saturation We will sought advice from laundry assistant 03/15/2021 The patient was seen and examined in telemetry unit in Covid room She remains stable and is still requiring 4 L of oxygen to maintain saturation Clinically she feels a little bit better 03/16/2021 The patient was seen and examined in telemetry unit and in the Covid room She remains stable and has been requiring 40 L of oxygen with 100% FiO2 to maintain saturation As her condition has not been improving for the last 2 or 3 days CTA was ordered to rule out pulmonary embolism She did not have any chest pain, cough or hemoptysis 03/17/2021 The patient was seen and examined in telemetry unit and in the Covid room She is being intubated this morning Review of Systems Review of Systems: Unobtainable due to endotracheal tube Physical Exam Physical Exam: Remains sedated on ventilator Constitutional: well developed, well nourished, + ill appearing and + obese Eyes: PERRL, conjunctivae normal, anicteric sclerae ENMT: external ear and nose normal, oropharynx normal Neck: trachea midline, no thyromegaly Respiratory: + respiratory distress Auscultation: + diminished lung sounds and + crackles (At the bases) Cardiovascular: Rate/Rhythm: regular rate and regular rhythm; not tachycardic Heart Sounds: normal S1 and normal S2; no murmur Extremities: + edema (Trace edema bilaterally) Gastrointestinal (Abdomen): Inspection/Auscultation: normal bowel sounds; abdomen not distended Percussion/Palpation: abdomen soft; abdomen nontender Musculoskeletal: No acute arthritis in any joint Neurologic: Remains sedated on mechanical ventilator Results & Data Results & Data ([facility]) Vital Signs (Past 12 Hours) Vital Signs Pulse Pulse Resp BP Pulse Ox 03/17/21 18:42 53 L 93/50 L 92 03/17/21 18:12 52 L 95/55 L 93 03/17/21 17:42 54 L 95/57 L 93 03/17/21 17:12 55 L 99/58 L 91 03/17/21 16:42 59 L 102/58 L 89 L 03/17/21 16:12 61 102/61 90 03/17/21 16:00 112/71 03/17/21 15:39 66 20 112/71 90 03/17/21 15:36 65 20 90 03/17/21 15:27 65 20 110/67 94 03/17/21 15:12 65 20 115/68 95 03/17/21 14:57 63 20 125/75 95 03/17/21 14:42 66 20 122/72 96 03/17/21 14:27 67 20 121/69 95 03/17/21 14:12 72 20 120/72 94 03/17/21 13:57 66 20 122/74 93 03/17/21 13:42 74 20 126/74 93 03/17/21 13:27 71 20 128/75 91 03/17/21 13:12 62 20 111/74 99 03/17/21 12:57 70 18 125/87 03/17/21 12:42 81 27 H 129/86 75 L 03/17/21 12:27 81 23 113/83 78 L 03/17/21 12:12 79 27 H 128/90 90 03/17/21 11:57 70 19 144/90 H 93 03/17/21 11:31 91 H 20 139/91 93 03/17/21 11:15 97 H 34 H 148/90 H 90 03/17/21 10:40 98 H 31 H 138/83 91 03/17/21 09:40 86 35 H 134/102 H 89 L 03/17/21 08:41 112 H 24 138/87 88 L 03/17/21 08:22 103 H 20 88 L 03/17/21 08:00 74 Laboratory Results Short CBC 03/17/21 03/17/21 03/17/21 Range/Units 05:32 12:42 17:20 WBC 15.45 H 19.78 H 17.11 H (4.8-10.8) K/uL Hgb 13.2 13.1 12.2 (12.0-16.0) g/dL Hct 40.0 40.0 38.0 (37-47) % Plt Count 280 344 296 (130-400) K/uL BMP 03/17/21 05:32 Sodium 141 Potassium 3.7 Chloride 105 Carbon Dioxide 27 BUN 46 H Creatinine 1.03 Glucose 101 H Calcium 9.1 Liver Function 03/17/21 Range/Units 05:32 Total Bilirubin 0.6 (0.2-1) mg/dl AST 39 H (15-37) U/L ALT 22 (12-78) U/L Alkaline Phosphatase 76 (45-117) U/L Albumin 2.7 L (3.4-5.0) gm/dl Medications Administered Current Inpatient Medications Acetaminophen (Acetaminophen 325 Mg Tab) 650 mg PO Q4H PRN PRN Reason: Pain or Fever Stop: 04/09/21 03:08 Last Admin: 03/11/21 11:45 Dose: 650 mg Documented by: Albuterol (Albuterol Hfa 8 Gm Inhaler) 2 puffs INH Q2R PRN PRN Reason: sob/wheeze Stop: 04/10/21 00:12 Bupropion HCl (Bupropion Xl 150 Mg Tabcr) 150 mg PO [facility] Stop: 04/09/21 08:59 Last Admin: 03/17/21 08:34 Dose: 150 mg Documented by: Buspirone HCl (Buspirone 5 Mg Tab) 10 mg PO [facility] Stop: 04/09/21 08:59 Last Admin: 03/17/21 08:36 Dose: 10 mg Documented by: Clonazepam (Clonazepam 1 Mg Tab) 1 mg PO TID PRN PRN Reason: Anxiety Stop: 04/09/21 03:08 Last Admin: 03/16/21 22:11 Dose: 1 mg Documented by: Dextrose (Dextrose 50% 50 Ml Syringe) 25 - 50 ml IV UD PRN; Protocol PRN Reason: Hypoglycemia Protocol Stop: 04/09/21 03:08 Escitalopram Oxalate (Escitalopram Oxalate 10 Mg Tab) [facility] [place] Stop: 04/09/21 08:59 Last Admin: 03/17/21 08:34 Dose: 30 mg Documented by: Famotidine (Famotidine 40 Mg Tablet) [facility] [place] Stop: 04/09/21 08:59 Last Admin: 03/17/21 08:38 Dose: 40 mg Documented by: Fentanyl Citrate (Fentanyl Bolus From Bag) 50 mcg IV Q60M PRN PRN Reason: Pain or Agitation Stop: 03/31/21 10:47 Glucagon (Glucagon For Inj 1 Mg Vial) 1 mg SQ UD PRN; Protocol PRN Reason: Hypoglycemia Protocol Stop: 04/09/21 03:08 Glucose (Glucose 10 Tabs/Tube) 4 - 8 tabs PO UD PRN; Protocol PRN Reason: Hypoglycemia Protocol Stop: 04/09/21 03:08 Glucose (Glucose 40% Gel 15 Gm Tube) 15 - 30 gm PO UD PRN; Protocol PRN Reason: Hypoglycemia Protocol Stop: 04/09/21 03:08 Hydromorphone HCl (Hydromorphone Hcl 2 Mg Tab) 4 mg PO QID PRN PRN Reason: severe headache Stop: 03/24/21 03:17 Hydroxyzine HCl (Hydroxyzine Hcl 25 Mg Tab) 25 mg PO HS [facility] Stop: 04/09/21 04:14 Last Admin: 03/16/21 22:12 Dose: Not Given Documented by: Promethazine HCl 12.5 mg/ (Sodium Chloride) 50.5 mls @ 202 mls/hr IV Q6H PRN PRN Reason: Nausea And Vomiting Stop: 04/09/21 03:08 Last Infusion: 03/11/21 02:02 Dose: Infused Documented by: Furosemide 40 mg/ Syringe 4 mls @ 4 mls/min IV DAILY [facility] Stop: 04/14/21 09:29 Last Admin: 03/17/21 08:37 Dose: 4 mls/min Documented by: Heparin Sodium/Dextrose (Heparin Sodium/Dextrose) 25,000 units in 500 mls @ 25 mls/hr IV .Q20H [facility]; Protocol Stop: 04/16/21 01:59 Last Titration: 03/17/21 19:10 Dose: 1,250 units/hr, 25 mls/hr Documented by: Propofol (Diprivan) 1,000 mg in 100 mls @ 27.636 mls/hr IV .Q3H38M [facility]; Protocol Stop: 03/20/21 10:59 Last Titration: 03/17/21 19:10 Dose: 35 mcg/kg/min, 27.6 mls/hr Documented by: Fentanyl Citrate (Fentanyl Drip) 1,250 mcg in 250 mls @ 25 mls/hr IV .Q10H [facility]; Protocol Stop: 03/31/21 10:59 Last Titration: 03/17/21 19:10 Dose: 125 mcg/hr, 25 mls/hr Documented by: Cisatracurium Besylate 40 mg/ (Sodium Chloride) 100 mls @ 8.895 mls/hr IV .[id number] [facility]; Protocol Stop: 04/16/21 11:59 Last Titration: 03/17/21 19:10 Dose: 2 mcg/kg/min, 17.8 mls/hr Documented by: Dexamethasone 10 mg/ Syringe 2.5 mls @ 1 mls/min IV DAILY [facility] Stop: 03/19/21 09:03 Last Admin: 03/17/21 13:25 Dose: 1 mls/min Documented by: Insulin Aspart (Insulin Aspart 100 Units/Ml 3 Ml Pen) 0 units SC ACHS [facility] Stop: 04/09/21 03:29 Last Admin: 03/17/21 16:47 Dose: 3 units Documented by: Insulin Glargine (Insulin Glargine Solostar 100 Units/Ml 3 Ml Pen) 5 units SC DAILY [facility] Stop: 04/09/21 05:59 Last Admin: 03/17/21 08:44 Dose: 5 units Documented by: Meclizine HCl (Meclizine Hcl 25 Mg Tab) 25 mg PO DAILY PRN PRN Reason: Vertigo Stop: 04/09/21 03:18 Miscellaneous (Carbohydrates For Hypoglycemia ) 15 - 30 gm PO UD PRN PRN Reason: Hypoglycemia Protocol Stop: 04/09/21 03:08 Miscellaneous (Icu Protocol For Hyperglycemia) 1 ea N/A PRN PRN; Protocol PRN Reason: Hyperglycemia Protocol Stop: 03/18/21 18:17 Miscellaneous (Icu Electrolyte Replacement Protocol) 1 ea N/A BID@06,18 [facility]; Protocol Stop: 03/24/21 17:59 Last Admin: 03/17/21 17:30 Dose: 1 ea Documented by: Multi-Ingredient Cream (Artificial Tears Op Oint 3.5 Gm Tube) 1 appln OP Q4H [facility] Stop: 04/16/21 11:44 Last Admin: 03/17/21 15:04 Dose: 1 appln Documented by: Nutritional Formula (Peptamen Intense Vhp 1.0 Donnell 1,000 Ml Bag) 1,000 ml GT CONT [facility]; Protocol Stop: 04/16/21 12:14 Last Admin: 03/17/21 15:05 Dose: 1,000 ml Documented by: Propofol (Propofol Bolus From Bag) 20 mg IV Q5M PRN PRN Reason: Sedation Stop: 03/20/21 10:47 Last Admin: 03/17/21 13:27 Dose: 20 mg Documented by: Rocuronium Olalla (Rocuronium Olalla 10 Mg/Ml 5 Ml Vial) 59 mg 1 mg/kg (59 mg) IV Q1H PRN PRN Reason: See Label Comments Stop: 04/16/21 10:47 Sucralfate (Sucralfate 1 Gm Tab) 1 gm PO ACHS [facility] Stop: 04/09/21 07:29 Last Admin: 03/17/21 15:33 Dose: Not Given Documented by:
[2021-03-17 23:02] LABS: Partial Thromboplastin Ratio 1.9
[2021-03-18] MEDS: propofoL 1,000 MG/100 ML VIAL IV SCH ×7 (00:37→22:08)
[2021-03-18] MEDS: ARTIFICIAL TEARS OP OINT 3.5 GM TUBE OP SCH ×6 (00:37→20:24)
[2021-03-18] MEDS: INSULIN ASPART 100 UNITS/ML 3 ML PEN SC SCH ×5 (01:17→20:21)
[2021-03-18] MEDS: CISATRACURIUM BESYLATE 40 MG in 0.9 % SODIUM CHLORIDE 80 ML IV SCH ×5 (01:53→22:57)
[2021-03-18] MEDS: HEPARIN SODIUM/DEXTROSE 25,000 UNITS/500 ML BAG IV SCH ×2 (01:54→20:52)
--- NOTE | 2021-03-18 05:25 | Communication Note ---
Date of Service: March 18, 2021 Procedure: Supination Maneuver Attending: Dr. Guerrero APC: Harley Shi PA-C Indication: Requiring lung recruitment intervention in the setting of advanced ARDS with poor lung compliance and oxygenation on standard ventilator settings. Patient requiring supination in the setting of advanced ARDS per imaging, ventilator requirements, and calculated P:F ratio. Appropriate staff was assembled including myself, Respiratory Therapy, and Nursing Staff. A time-out was completed verifying correct patient, time from recent pronation/supination, current ventilator settings, review of any prior issues during pronation/supination maneuvers. Patient was fully undressed as to be able to view all current IV sites, central venous access sites, arterial lines, endotracheal tube, Aldridge catheter, etc. After properly identifying/securing all lines, tubes, etc., the patient was ``papoosed using flat sheets. On my count, the patient was slid to the edge of the bed. After reevaluating all lines, tubes, etc., the patient was then placed on their side allowing for RT to maintain control of ET tube and ready for completion of Supination maneuver. Final check of all lines, tubes, etc. was completed by myself and nursing staff. Blood pressure, heart rhythm, and oxygen saturations were monitored for several minutes s/p maneuver. Discussion was held with patients RN and RT regarding ongoing management. Patient tolerated maneuver well. No immediate complications were noted. TIME PRONE SUPINE: 0515 I have personally spent 15 minutes of critical care time in the direct management of this patient. This is a life/limb threatening event. This includes time spent evaluating patient, direct bedside care, chart review, placing orders, interpretation of diagnostic studies, discussion with consultants, patient, and family members, as well as other required patient management activities. This time is exclusive of all separately billable procedures, and teaching time and separate from and in addition to any other critical care service time. Coding Level of Care Code Critical Care 1st 30-74 mins Time Spent (min) 15
[2021-03-18 06:09] LABS: iSTAT Art Bld Gas pCO2 Correct 59 mmHg (35-46); iSTAT Art Bld Gas pH Corrected 7.319 (7.35-7.45); iSTAT Arterial Blood Gas HCO3 30 meg/L (19-24); iSTAT Arterial Blood Gas pCO2 60 mmHg (35-46); iSTAT Arterial Blood Gas pH 7.31 (7.35-7.45); iSTAT Arterial Blood Gas pO2 57 mmHg (80-95); iSTAT Arterial Blood Gas pO2 C 55; iSTAT Carbon Dioxide 32 mmol/L (24-31); iSTAT FiO2 80 %; iSTAT Hematocrit 37 % (37-47); iSTAT Hemoglobin 12.6 g/dl (12.0-16.0); iSTAT Potassium 3.8 mmol/L (3.3-5.0); iSTAT Site Art Line; iSTAT Sodium 139 mmol/L (135-144)
[2021-03-18] MEDS: fentaNYL DRIP 1,250 MCG/250 ML BAG IV SCH ×2 (06:18→22:20)
[2021-03-18 06:32] LABS: Basophils # (auto) 0.01 K/uL (0-0.2); Basophils % (auto) 0.1 %; Hematocrit (blood only) 37.1 % (37-47); Hemoglobin 11.7 g/dL (12.0-16.0); Immature Granulocytes # (auto) 0.08 K/uL (0.00-0.02); Immature Granulocytes % (auto) 0.5 %; Lymphocytes # (auto) 0.34 K/uL (1.2-3.4); Lymphocytes % (auto) 2.2 %; Mean Corpuscular Hemoglobin 25.8 pg (25-34); Mean Corpuscular Hgb Conc 31.5 g/dL (32-36); Mean Corpuscular Volume 81.9 fL (80-100); Mean Platelet Volume 9.4 fL (7.4-10.4); Monocytes % (auto) 2.6 %; Neutrophils # (auto) 14.65 K/uL (1.4-6.5); Neutrophils % (auto) 94.6 %; Platelet Count 246 K/uL (130-400); Red Blood Count 4.53 M/uL (4.2-5.4); White Blood Count 15.48 K/uL (4.8-10.8)
[2021-03-18] MEDS ORDERED: STAT IV Infusion **Titration per Protocol STA (06:39)
[2021-03-18 06:41] LABS: Partial Thromboplastin Ratio 1.5; Partial Thromboplastin Time 39.6 Seconds (21.0-31.0)
[2021-03-18] MEDS: NOREPINEPHRINE/D5W 8 MG/508 ML BAG IV SCH (06:56)
[2021-03-18 07:09] LABS: Albumin Level 2.4 gm/dl (3.4-5.0); BUN Creatinine Ratio 46.2 (10-20); C Reactive Protein 18.4 mg/dl (0-0.29); Calcium 9.1 mg/dl (8.5-10.1); Creatinine Clr Calc Pharmacy 119.3 ml/min; Est GFR (African American) 96.6 ml/min; Est GFR (Non-African American) 83.4 ml/min; Magnesium 2.4 mg/dl (1.8-2.4); Potassium 3.8 mmol/L (3.5-5.1)
[2021-03-18 07:20] LABS: Albumin Globulin Ratio 0.5 (0.9-2); Bilirubin,Total 0.5 mg/dl (0.2-1); Globulin 4.4 gm/dl (2.5-4.0); Phosphorus 4.9 mg/dl (2.5-4.9); Total Protein 6.8 gm/dl (6.4-8.2)
[2021-03-18] MEDS ORDERED: INSULIN ASPART 100 UNITS/ML 3 ML PEN SC SCH (07:30)
--- NOTE | 2021-03-18 07:36 | Critical Care Progress Note ---
Date of Service March 18, 2021 Assessment & Plan (1) Pneumonia due to COVID-19 virus: Plan: Reason Critically Ill: Leigh Carballo is a 35 year old female w/ PMHx of DM, anxiety/depression, rheumatoid arthritis, obesity, distant 2.5 pack yr hx tobacco who presents w/ covid pneumonia and worsened hypoxemic respiratory failure due to pulmonary embolism. She has received almost a full course of tPA. Patient was not inbutaed at the time of my interview this AM. Patient was intubated 03/17/21 for impending resp failure. vent settings [id number]. Peep 18 down from 20. RR 22. FiO2 60 down from 80. Neuro - [facility] ICU: sedated, unable to assess. sedation: prop 30, fentanyl 75, nimbex 2. check triglycerides anxiety/depression: hold home PO meds Cardiac - neg trop x1 continue monitoring via telemetry bradycardia. mostly low 50s. monitor. Respiratory - Covid pneumonia Continue dexamethasone, lasix. Stopped baricitinib acute hypoxic resp failure 2/2 covid and pulmonary embolism per CTA: 1. Extensive right-sided pulmonary emboli. 2. Extensive groundglass opacities throughout the lungs consistent with viral pneumonia. tPA ordered by pulmonary service O2 support as needed, currently on high flow. cxr 03/17: worsened compared to 03/16. More pulm vasc congestion and opacities. cxr 03/18: slightly worsened airspace opacities. See report. 7.31/60H/57L/30H. ABG consistent w/ resp acidosis. plan: will prone at 1:30PM GI - DM2 diet. Glycemic consult placed. GI PPx: pepcid 40 IV qam. RENAL/LYTES - No significant electrolyte derangement Replace lytes as needed. - Zhao. Strict Is/Os. 24 hours 1.7L in 1L out. cumulative 8.8L in 8.7L out ENDO - DM2: SSI and low dose lantus. ICU hyperglycemia protocol. No hx of thyroid disease HEME - Stable H&H. Monitor. Will monitor for any drops in the setting of Heparin gtt ID - Monitor clinically and follow cbc. Afebrile. covid: see above. not candidate for ecmo because had PEs LINES/IV ACCESS - PIVs intact. Update: + LIJ central venous catheter. Right A line. DVT PROPHYLAXIS - SCDs. Heparin drip, therapeutic, for PEs code: full (2) Diabetes: (3) Morbid obesity: (4) Hypertension: (5) Pulmonary embolism: Admission and Anticipated Discharge Date Admission Date: March 10, 2021 Supervising Physician Co-Signing Physician Notes Dr. Wallace was resident physician during care of patient. I separately evaluated patient for pan portions of the history and the exam. I was present during the critical portion of medical decision making, and I discussed the case with the resident. I generally agree with the findings and plan. Patient was discussed on multidisciplinary rounds Maintain heparin for known PEs anticipate pronation today around 1300 Not candidate for ECMO secondary to venous thromboembolic disease. Check triglycerides in a.m. additional basal for glycemic coverage Subjective History is limited as patient is sedated. Patient was unproned at ~5AM. She required brief 1-2 hours of low dose levo after unproning, since off of. Review of Systems Review of Systems: Unobtainable due to endotracheal tube (and sedation) Physical Exam Physical Exam: General: Patient is sedated. HEENT: Atraumatic, normocephalic. Pulm: CTAB. -wheezes, -rales, -rhonchi. Slightly diminished lung sounds anteriorly. + ETT. Cardiac: RRR, -mrg. Radial pulses intact and symmetrical. No LE edema. Puffy appearance of ankles. Abdominal: Nontender, nondistended, soft. Integ: Warm, dry, intact. Lines inspected. L IJ, peripherals. : + zhao Results & Data Results & Data ([facility]) Vital Signs (Past 12 Hours) Vital Signs reviewed. HR soft, low 50s Temp Pulse Resp BP Pulse Ox 03/18/21 06:00 51 L 92/57 L 92 03/18/21 05:27 51 L 86 L 03/18/21 04:26 50 L 86/46 L 88 L 03/18/21 03:56 51 L 20 88 L 03/18/21 03:25 51 L 88 L 03/18/21 02:25 52 L 88 L 03/18/21 01:13 51 L 94 03/18/21 00:13 36.8 C 48 L 95 03/17/21 23:13 50 L 92/53 L 89 L 03/17/21 22:51 51 L 20 89 L 03/17/21 22:12 51 L 94/55 L 93 03/17/21 21:12 50 L 93/53 L 91 03/17/21 20:12 37.0 C 53 L 92/50 L 90 03/17/21 19:47 53 L 20 91 Laboratory Results wbc 14.58->15.45->17.11->15.48. Hb 13.2->12.2->11.7. coags reviewed. abg 7.31/60H/57L/30H. electrolytes ok K 3.8. Cr 0.89. a1c pending. CRP 18.4 up from 2.64 03/16/21. check procalc? 03/10 UC mixed kwaku. 03/17/21 echo EF 55-60. has been jaya low 50s. but is on drips. check ecg? Cardiac Enzymes 03/18/21 Range/Units 05:47 AST 26 (15-37) U/L Coagulation 03/17/21 03/17/21 03/18/21 Range/Units 12:42 22:27 05:47 APTT 27.9 51.0 H* 39.6 H (21.0-31.0) Seconds CBC 03/17/21 03/17/21 03/18/21 Range/Units 12:42 17:20 05:47 WBC 19.78 H 17.11 H 15.48 H (4.8-10.8) K/uL RBC 5.02 4.68 4.53 (4.2-5.4) M/uL Hgb 13.1 12.2 11.7 L (12.0-16.0) g/dL Hct 40.0 38.0 37.1 (37-47) % Plt Count 344 296 246 (130-400) K/uL Neut # (Auto) 18.35 H 16.12 H 14.65 H (1.4-6.5) K/uL Lymph # (Auto) 0.40 L 0.48 L 0.34 L (1.2-3.4) K/uL Labette # (Auto) 0.71 H 0.33 0.40 (0.11-0.59) K/uL Eos # (Auto) 0.22 0.06 0.00 (0-0.5) K/uL Baso # (Auto) 0.00 0.01 0.01 (0-0.2) K/uL Comprehensive Metabolic Panel 03/18/21 Range/Units 05:47 Sodium 138 (136-145) mmol/L Potassium 3.8 (3.5-5.1) mmol/L Chloride 102 (98-107) mmol/L Carbon Dioxide 27 (21-32) mmol/L BUN 41 H (7-18) mg/dl Creatinine 0.89 (0.6-1.2) mg/dl Glucose 157 H (70-99) mg/dl Calcium 9.1 (8.5-10.1) mg/dl AST 26 (15-37) U/L ALT 32 (12-78) U/L Alkaline Phosphatase 64 (45-117) U/L Total Protein 6.8 (6.4-8.2) gm/dl Albumin 2.4 L (3.4-5.0) gm/dl Intake and Output 03/17/21 03/18/21 03/18/21 22:59 06:59 14:59 Intake Total 878.604 / 1763.928 809.468 / 1763.928 10.8 / 10.8 Output Total 650 / 1050 400 / 1050 Balance 228.604 / 713.928 409.468 / 713.928 10.8 / 10.8 Intake: IV 848.604 / 1733.928 809.468 / 1733.928 10.8 / 10.8 Cisatracurium Besylate 40 mg In 145.367 / 237.778 92.411 / 237.778 0.9 % Sodium Chloride 80 ml @ 2 MCG/KG/MIN 17.79 mls/hr IV . Q5H38M [facility] Rx#:[id number] Heparin Sodium/Dextrose 25,000 253.917 / 589.417 294.167 / 589.417 10.8 / 10.8 units In 500 ml @ 1,250 UNITS/ HR 25 mls/hr IV .Q20H [facility] Rx#: [id number] fentaNYL DRIP 1,250 mcg In 250 215.000 / 421.083 200.000 / 421.083 ml @ 100 MCG/HR 20 mls/hr IV . [id number] [facility] Rx#:[id number] propofoL 1,000 mg In 100 ml @ 234.32 / 485.65 222.89 / 485.65 30 MCG/KG/MIN 23.688 mls/hr IV .Q4H14M [facility] Rx#:[id number] Tube Irrigant 30 Output: Urine Amount (Catheter) 650 / 1050 400 / 1050 Zhao/Indwelling 650 / 1050 400 / 1050 Other: Weight 127.2 kg Weight Measurement Method Built in [facility] Diagnostic Findings Chest X-Ray 03/17/21 11:55 XR chest 1V portable HISTORY: 35 years-old Female lines acute respiratory failure COMPARISON: Chest radiograph of same day at 7:06 AM, CTA chest 03/16/2021 TECHNIQUE: Portable AP view of the chest FINDINGS: Endotracheal tube overlies the midline, 4.5 cm superior to the yosef. Enteric tube courses below the diaphragm outside the [id number]. Left IJ central venous catheter distal tip terminates in the expected location of the brachiocephalic SVC confluence. No pneumothorax. Cardiac silhouette is enlarged. Pulmonary vascular congestion with extensive bilateral ill-defined pulmonary opacities, stable from comparison. No large pleural effusion. No acute fracture. IMPRESSION: 1. Lines and tubes as above. 2. No pneumothorax. 3. No significant change of the multifocal pneumonia. ACT 112: Negative or not required by law. The above report was generated using voice recognition software. It may contain grammatical, syntax or spelling errors. Electronically signed by: Dago De La Rosa M.D. 03/17/2021 1:01 PM Chest X-Ray 03/18/21 07:00 XR chest 1V portable INDICATION: Pneumonia. TECHNIQUE: Single frontal radiograph of the chest was obtained. Comparison: Comparison is made to chest one view 03/17/2021 FINDINGS: Lines and tubes are stable. Cardiomegaly is noted. Interval worsening of diffuse airspace opacities. Redemonstration of vascular indistinctness and Marcellus B lines. Likely bilateral pleural effusions. IMPRESSION: 1. Multifocal pneumonia, worsened from prior exam. 2. Moderate to severe pulmonary edema. 3. Likely small bilateral pleural effusions. 4. Cardiomegaly. ACT 112: Negative or not required by law. Electronically signed by: Mike Jacobs M.D. 03/18/2021 9:12 AM Resident Activity Tracking Resident Involvement: Resident Care Provided Care Provided: Adult [facility] Medicine
[2021-03-18 07:39] LABS: Estimated Average Glucose 143 mg/dl; Hemoglobin A1C 6.6 % (4.5-5.6)
[2021-03-18] MEDS: busPIRone 5 MG TAB PO SCH (08:03)
[2021-03-18] MEDS: dexAMETHasone 10 MG in SYRINGE 0 ML IV SCH (08:06)
[2021-03-18] MEDS: FUROSEMIDE 40 MG in SYRINGE 0 ML IV SCH (08:07)
[2021-03-18] MEDS: SUCRALFATE 1 GM TAB PO SCH ×4 (08:08→20:50)
[2021-03-18] MEDS: FAMOTIDINE 40 MG TABLET PO SCH (08:08)
[2021-03-18] MEDS: ESCITALOPRAM OXALATE 10 MG TAB PO SCH (08:08)
[2021-03-18] MEDS: INSULIN GLARGINE SOLOSTAR 100 UNITS/ML 3 ML PEN SC SCH (08:35)
--- NOTE | 2021-03-18 09:14 | XRay Report ---
XR chest 1V portable INDICATION: Pneumonia. TECHNIQUE: Single frontal radiograph of the chest was obtained. Comparison: Comparison is made to chest one view 03/17/2021 FINDINGS: Lines and tubes are stable. Cardiomegaly is noted. Interval worsening of diffuse airspace opacities. Redemonstration of vascular indistinctness and Marcellus B lines. Likely bilateral pleural effusions. IMPRESSION: 1. Multifocal pneumonia, worsened from prior exam. 2. Moderate to severe pulmonary edema. 3. Likely small bilateral pleural effusions. 4. Cardiomegaly. ACT 112: Negative or not required by law. Electronically signed by: Mike Jacobs M.D. 03/18/2021 9:12 AM
[2021-03-18] MEDS: ICU ELECTROLYTE REPLACEMENT PROTOCOL SCH ×2 (09:16→17:59)
--- NOTE | 2021-03-18 09:18 | Billing Data ---
Date of Service March 18, 2021 Coding Level of Care Code Critical Care 1st - mins
[2021-03-18] MEDS ORDERED: PHARMACY GLYCEMIC MGMT CONSULT PRN (09:46)
[2021-03-18] MEDS: POTASSIUM CHLORIDE 20 MEQ/15 ML UDC NG SCH ×2 (10:36→14:28)
[2021-03-18] MEDS ORDERED: INSULIN HUMAN NPH SC ONE (11:00)
--- NOTE | 2021-03-18 12:13 | Pharmacy Report ---
Pharmacy Glycemic Short Note 2 - Date of Service March 18, 2021 - Glycemic Short BSG Results (Last 24 hours): 03/17/21 03/17/21 03/18/21 16:26 20:24 00:02 Glucose POC Glucose 196 H 233 H 197 H 03/18/21 03/18/21 03/18/21 05:47 05:50 11:35 Glucose 157 H POC Glucose 152 H 194 H OUTPATIENT ANTIDIABETIC REGIMEN: * none * A1c = 6.6% 03/18/21 ASSESSMENT: * Patient w/ h/o "pre-diabetes" admitted for COVID19 viral pneumonia. Latest A1c more consistent w/ dx of DM. * Currently intubated, sedated, receiving paralytics and IV steroids. * Today is day 9 of dexamethasone IV, currently receiving 10mg IV daily in the AM. Tomorrow appears to be the final day of therapy if not reordered * "Tickle" tube feeds have also been running * Pt did become hyperglycemic mid-day yesterday, coinciding w/ IV dexamethasone administration. * Will escalate Novolog correctional / prandial doses and NPH to combat rise in BSGs following AM dexamethasone admin. PLAN FOR INPATIENT GLYCEMIC CONTROL: * Basal insulin * Lantus 5 units SQ QAM * NPH 20 units SQ Q AM given at the same time that IV dexamethasone admin. * Bolus insulin * NovoLog per scale Q 4 hrs * Goal Range: Low 110 mg/dL - High 140 mg/dL * Correction Factor: 15 mg/dL/unit * Nutritional / Prandial insulin per carb ratio of 1 unit per 5 grams CHO consumed PLAN FOR DISCHARGE: * Would recommend diet/lifestyle modifications on discharge. One could consider the addition of metformin in the near future if no contraindications present.
[2021-03-18 13:34] LABS: Partial Thromboplastin Ratio 1.4; Partial Thromboplastin Time 36.1 Seconds (21.0-31.0)
--- NOTE | 2021-03-18 14:24 | Hospitalist Progress Note ---
Date of Service March 18, 2021 Assessment & Plan (1) Acute hypoxemic respiratory failure: Plan: Extensive right-sided pulmonary embolism. CTA did show extensive right-sided pulmonary embolism no echocardiogram was available to assess RV strain The case discussed with bus trolley and taxi instructor in [place] Dr. Jacques and was not advised for any TPN given the hemodynamic stability and the patient has been under waiting list as there is no bed in ICU The case was discussed with bus trolley and taxi instructor Dr. Resendiz in [facility] and also Dr. Souza the contracting engineer who decided to go ahead and give TPA for this patient and heparin. The patient received TPA and followed by intravenous heparin. Status post intubation on 03/17/2021 and remains sedated Management as per bus trolley and taxi instructor. Remains intubated/sedated. Secondary to severe COVID-19 pneumonia Did not receive any vaccination for COVID-19 Continue with dexamethasone on admission and finished course of remdesivir. Appreciate pulmonary input and recommendation. Baricitinib has been stopped. C/w decadron and lasix. H/O Hypertension Lisinopril is on hold H/O Anxiety/mood disorder: hold ORDER BUILDER meds H/O DM2: Hold ORDER BUILDER oral medications, well-controlled as of recent hemoglobin A1c of 5.19 November 2020 Basal insulin, ISS BG goal 1 10-1 40, carb count coverage, update hemoglobin A1c-6.3 as of 03/09/2021 DVT prophylaxis per Lovenox subcu Has been on TPN and will be given heparin followed by Full code. Admission and Anticipated Discharge Date Admission Date: March 10, 2021 Subjective Patient remains intubated. Review of Systems Review of Systems: All systems reviewed & are unremarkable except as noted in HPI & below Physical Exam Physical Exam: General: Mechanically ventilated HENT: NCAT, MMM CVS: Bradycardic Resp: b/l good breath sounds Abdomen: Soft, ND/ Extremities: No c/c/e Neuro: Patient remains ventilated Skin: warm and dry, no rashes/lesions/errythema MSK: no joint swelling/erythema Fully catheter in place. Results & Data Results & Data ([facility]) Vital Signs (Past 12 Hours) Vital Signs Temp Pulse Pulse Resp BP BP BP 03/18/21 14:00 36.8 C 51 L 111/63 03/18/21 13:00 45 L 99/61 L 03/18/21 12:00 36.9 C 45 L 103/63 03/18/21 11:22 46 L 22 03/18/21 11:00 36.7 C 48 L 98/63 L 03/18/21 10:00 36.7 C 47 L 101/62 03/18/21 09:11 36.9 C 03/18/21 09:10 51 L 97/59 L 03/18/21 08:11 36.8 C 48 L 104/60 03/18/21 07:52 49 L 22 03/18/21 07:30 37.0 C 46 L 22 158/93 H 153/89 H 03/18/21 07:26 43 L 158/93 H 03/18/21 06:00 51 L 92/57 L 03/18/21 05:27 51 L 03/18/21 04:26 50 L 86/46 L 03/18/21 03:56 51 L 20 03/18/21 03:25 51 L 03/18/21 02:25 52 L Pulse Ox 03/18/21 14:00 91 03/18/21 13:00 89 L 03/18/21 12:00 87 L 03/18/21 11:22 88 L 03/18/21 11:00 03/18/21 10:00 92 03/18/21 09:11 03/18/21 09:10 90 03/18/21 08:11 90 03/18/21 07:52 89 L 03/18/21 07:30 91 03/18/21 07:26 97 03/18/21 06:00 92 03/18/21 05:27 86 L 03/18/21 04:26 88 L 03/18/21 03:56 88 L 03/18/21 03:25 88 L 03/18/21 02:25 88 L
[2021-03-18] MEDS: PEPTAMEN INTENSE VHP 1.0 CAL 1,000 ML BAG GT SCH (14:28)
[2021-03-18] MEDS ORDERED: Nursing to Pharmacy Communication SCH (14:45)
[2021-03-18] MEDS ORDERED: HEPARIN IV BOLUS 4,000 UNITS in SYRINGE 0 ML IV ONE (15:00)
[2021-03-18] MEDS: buPROPion HCl 75 MG TABLET PO SCH (20:51)
[2021-03-18 22:07] LABS: Partial Thromboplastin Ratio 1.6; Partial Thromboplastin Time 42.8 Seconds (21.0-31.0)
[2021-03-18] MEDS: PROPOFOL BOLUS FROM BAG IV PRN ×2 (22:07→22:19)
[2021-03-19] MEDS: INSULIN ASPART 100 UNITS/ML 3 ML PEN SC SCH ×6 (00:05→20:08)
[2021-03-19] MEDS: propofoL 1,000 MG/100 ML VIAL IV SCH ×11 (00:26→23:19)
[2021-03-19] MEDS: ARTIFICIAL TEARS OP OINT 3.5 GM TUBE OP SCH ×6 (01:47→19:47)
--- NOTE | 2021-03-19 05:38 | Communication Note ---
Date of Service: March 19, 2021 Procedure: Supination Maneuver Attending: Dr. Guerrero APC: Harley Shi PA-C Indication: Requiring lung recruitment intervention in the setting of advanced ARDS with poor lung compliance and oxygenation on standard ventilator settings. Patient requiring supination in the setting of advanced ARDS per imaging, ventilator requirements, and calculated P:F ratio. Appropriate staff was assembled including myself, Respiratory Therapy, and Nursing Staff. A time-out was completed verifying correct patient, time from recent pronation/supination, current ventilator settings, review of any prior issues during pronation/supination maneuvers. Patient was fully undressed as to be able to view all current IV sites, central venous access sites, arterial lines, endotracheal tube, Aldrigde catheter, etc. After properly identifying/securing all lines, tubes, etc., the patient was ``papoosed using flat sheets. On my count, the patient was slid to the edge of the bed. After reevaluating all lines, tubes, etc., the patient was then placed on their side allowing for RT to maintain control of ET tube and ready for completion of Supination maneuver. Final check of all lines, tubes, etc. was completed by myself and nursing staff. Blood pressure, heart rhythm, and oxygen saturations were monitored for several minutes s/p maneuver. Discussion was held with patients RN and RT regarding ongoing management. Patient tolerated maneuver well. No immediate complications were noted. TIME SUPINE: 0520 I have personally spent 15 minutes of critical care time in the direct management of this patient. This is a life/limb threatening event. This includes time spent evaluating patient, direct bedside care, chart review, placing orders, interpretation of diagnostic studies, discussion with consultants, patient, and family members, as well as other required patient management activities. This time is exclusive of all separately billable procedures, and teaching time and separate from and in addition to any other critical care service time. Coding Level of Care Code Critical Care 1st 30-74 mins Time Spent (min) 15
[2021-03-19 05:47] LABS: iSTAT Art Bld Gas pCO2 Correct 56 mmHg (35-46); iSTAT Art Bld Gas pH Corrected 7.347 (7.35-7.45); iSTAT Arterial Blood Gas HCO3 31 meg/L (19-24); iSTAT Arterial Blood Gas pCO2 54 mmHg (35-46); iSTAT Arterial Blood Gas pH 7.36 (7.35-7.45); iSTAT Arterial Blood Gas pO2 62 mmHg (80-95); iSTAT Arterial Blood Gas pO2 C 67; iSTAT Carbon Dioxide 32 mmol/L (24-31); iSTAT FiO2 50 %; iSTAT Hematocrit 35 % (37-47); iSTAT Hemoglobin 11.9 g/dl (12.0-16.0); iSTAT Potassium 3.8 mmol/L (3.3-5.0); iSTAT Site Art Line; iSTAT Sodium 138 mmol/L (135-144)
[2021-03-19 05:53] LABS: Partial Thromboplastin Ratio 1.3; Partial Thromboplastin Time 34.8 Seconds (21.0-31.0)
[2021-03-19 06:10] LABS: BUN Creatinine Ratio 42.4 (10-20); Creatinine Clr Calc Pharmacy 137.4 ml/min; Est GFR (African American) 115.1 ml/min; Est GFR (Non-African American) 99.3 ml/min; Magnesium 2.6 mg/dl (1.8-2.4); Potassium 3.8 mmol/L (3.5-5.1)
[2021-03-19] MEDS ORDERED: HEPARIN SOD (PORCINE) 1000 UNIT/ML IV ONE (06:30)
[2021-03-19] MEDS: POTASSIUM CHLORIDE / WTR 20 MEQ/100 ML PLCT IV SCH ×2 (07:28→09:30)
[2021-03-19] MEDS: CISATRACURIUM BESYLATE 40 MG in 0.9 % SODIUM CHLORIDE 80 ML IV SCH ×10 (07:28→22:50)
--- NOTE | 2021-03-19 07:30 | Critical Care Progress Note ---
Date of Service March 19, 2021 Assessment & Plan (1) Pneumonia due to COVID-19 virus: Plan: Reason Critically Ill: Leigh Carballo is a 35 year old female w/ PMHx of DM, anxiety/depression, rheumatoid arthritis, obesity, distant 2.5 pack yr hx tobacco who presents w/ covid pneumonia and worsened hypoxemic respiratory failure due to pulmonary embolism. She has received almost a full course of tPA. Patient was not inbutated at the time of my interview this AM. Patient was intubated 03/17/21 for impending resp failure. Neuro - [facility] ICU: sedated, unable to assess. sedation: propofol 40, fentanyl 100, nimbex 2 (4 per AUG). Triglycerides elevated at 281, will trend tomorrow; continue propofol for now anxiety/depression: hold home PO meds Cardiac - neg trop x1 continue monitoring via telemetry bradycardia. mostly low 50s. monitor. Hypotension: Has not needed pressors Respiratory - Covid pneumonia Continue dexamethasone, lasix. Stopped baricitinib acute hypoxic resp failure 2/2 covid and pulmonary embolism per CTA: 1. Extensive right-sided pulmonary emboli. 2. Extensive groundglass opacities throughout the lungs consistent with viral pneumonia. tPA ordered by pulmonary service O2 support as needed, currently on high flow. cxr 03/17: worsened compared to 03/16. More pulm vasc congestion and opacities. cxr 03/18: slightly worsened airspace opacities. See report. cxr 03/19: slightly improved opacities and aeration. Slight improvement in respiratory acidosis per ABG. 7.31L/60H/57L/30H- >7.36/54H/62/31H. plan: will prone at 1:30PM GI - NPO. Tube feeds. Glycemic consult placed. GI PPx: pepcid 40 IV qam. RENAL/LYTES - No significant electrolyte derangement Replace lytes as needed. - Zhao. 24 hrs 1.8L in 1.5L out. cumulative 10.9L in 10.1L out. ENDO - DM2: SSI and low dose lantus. ICU hyperglycemia protocol. No hx of thyroid disease HEME - Stable H&H. Monitor. Will monitor for any drops in the setting of Heparin gtt ID - Monitor clinically and follow cbc. Afebrile. 9/28/21 UC: high counts mixed kwaku covid: see above. not candidate for ecmo because had PEs procalc 0.15 LINES/IV ACCESS - PIVs intact. + LIJ central venous catheter. DVT PROPHYLAXIS - SCDs. Heparin drip, therapeutic, for PEs code: full dispo: continue ICU status. Continue mechanical ventilation, day 3. (2) Diabetes: (3) Morbid obesity: (4) Hypertension: (5) Pulmonary embolism: Admission and Anticipated Discharge Date Admission Date: March 10, 2021 Supervising Physician Co-Signing Physician Notes Dr. Wallace was resident physician during care of patient. I separately evaluated patient for pan portions of the history and the exam. I was present during the critical portion of medical decision making, and I discussed the case with the resident. I generally agree with the findings and plan. Patient was discussed on multidisciplinary rounds Maintain heparin for known PEs pronation today around 1400 Not candidate for ECMO secondary to venous thromboembolic disease. repeat triglycerides in a.m. Intubation day 3 I updated the patient's , Perfecto, , of status and prognosis. Subjective No acute events overnight. Patient continues on mechanical ventilation and sedation. Review of Systems Review of Systems: Unobtainable due to endotracheal tube (and sedation) Physical Exam Physical Exam: General: Patient is sedated. HEENT: Atraumatic, normocephalic. Pulm: Transmitted upper airway sound at end inspiration. Slightly diminished lung sounds on L. + ETT. Cardiac: RRR, -mrg. Radial pulses intact and symmetrical. None to very slight edema of BLE. Puffy appearance of ankles. Abdominal: Nontender, nondistended, soft. +BS. Integ: Warm, dry, intact. Lines inspected. L IJ, peripherals. : + zhao Results & Data Results & Data ([facility]) Vital Signs (Past 12 Hours) Vital Signs jaya upper 40s low 50s Temp Pulse Resp Pulse Ox 03/19/21 06:15 50 L 94 03/19/21 06:00 53 L 94 03/19/21 05:45 59 L 93 03/19/21 05:30 68 91 03/19/21 05:00 48 L 96 03/19/21 04:45 48 L 96 03/19/21 04:43 46 L 22 96 03/19/21 04:30 48 L 96 03/19/21 04:15 48 L 94 03/19/21 04:04 36.9 C 03/19/21 04:00 49 L 94 03/19/21 03:45 49 L 95 03/19/21 03:30 49 L 94 03/19/21 03:15 48 L 94 03/19/21 03:00 48 L 94 03/19/21 02:45 48 L 93 03/19/21 02:30 49 L 94 03/19/21 02:15 45 L 96 03/19/21 02:00 48 L 96 03/19/21 01:45 47 L 96 03/19/21 01:30 47 L 96 03/19/21 01:15 46 L 96 03/19/21 01:00 47 L 96 03/19/21 00:45 48 L 97 03/19/21 00:30 47 L 96 03/19/21 00:15 48 L 96 03/19/21 00:00 47 L 96 03/18/21 23:58 36.8 C 03/18/21 23:45 47 L 95 03/18/21 23:30 47 L 94 03/18/21 23:15 49 L 88 L 03/18/21 23:09 50 L 22 91 03/18/21 23:00 49 L 93 03/18/21 22:45 50 L 91 03/18/21 22:30 51 L 91 03/18/21 22:15 56 L 86 L 03/18/21 22:00 63 88 L 03/18/21 21:45 62 94 03/18/21 21:30 61 94 03/18/21 21:15 59 L 85 L 03/18/21 21:00 58 L 85 L 03/18/21 20:45 56 L 85 L 03/18/21 20:30 53 L 85 L 03/18/21 20:15 46 L 90 03/18/21 20:06 42 L 23 95 03/18/21 20:00 36.6 C 46 L 95 03/18/21 19:45 46 L 95 03/18/21 19:30 43 L 95 Laboratory Results wbc downtrending 19.78->17.11->15.48. Hb 13.1->12.2->11.7. abg 7.31L/6 0H/57L/30H->7.36/54H/62/31H. K 3.8. a1c 6.6. phos 4.9->3.0. Mg 2.6H. renal function ok. TG 281H. procalc 0.15 03/18/21 05:47 03/19/21 05:25 Diagnostic Findings Chest X-Ray 03/19/21 08:00 XR chest 1V portable INDICATION: [place] ^covid. TECHNIQUE: Single frontal radiograph of the chest was obtained. Comparison: Comparison is made to chest one view 03/18/2021 FINDINGS: Lines and tubes are stable. The cardiomediastinal silhouette is stable. Bilater al airspace opacities are somewhat improved from the prior exam. No evidence of pleural effusion or pneumothorax. IMPRESSION: Interval mild improvement in bilateral airspace opacities in this patient with history of viral pneumonia. ACT 112: Negative or not required by law. Electronically signed by: Mike Jacobs M.D. 03/19/2021 9:35 AM Critical Care Time I have personally spent 60 minutes of critical care time in the direct manag ement of this patient. This is a life/limb threatening event. This includes time spent evaluating patient, direct bedside care, chart review, placing orders, interpretation of diagnostic studies, discussion with consultants, patient, and/or family members regarding treatment decisions, as well as other required patient management activities. This time is exclusive of all separately billable procedures, and teaching time and separate from and in addition to any other critical care service time. Resident Activity Tracking Resident Involvement: Resident Care Provided Care Provided: Adult [facility] Medicine
[2021-03-19] MEDS: HEPARIN SODIUM/DEXTROSE 25,000 UNITS/500 ML BAG IV SCH ×2 (07:58→11:37)
[2021-03-19] MEDS: fentaNYL DRIP 1,250 MCG/250 ML BAG IV SCH ×2 (07:59→11:37)
[2021-03-19] MEDS: ICU ELECTROLYTE REPLACEMENT PROTOCOL SCH ×2 (08:01→19:01)
[2021-03-19] MEDS: SUCRALFATE 1 GM TAB PO SCH ×4 (08:18→21:35)
[2021-03-19] MEDS: FUROSEMIDE 40 MG in SYRINGE 0 ML IV SCH (08:18)
[2021-03-19] MEDS: dexAMETHasone 10 MG in SYRINGE 0 ML IV SCH (08:18)
[2021-03-19] MEDS: busPIRone 5 MG TAB PO SCH (08:20)
[2021-03-19] MEDS: ESCITALOPRAM OXALATE 10 MG TAB PO SCH (08:20)
[2021-03-19] MEDS: FAMOTIDINE 40 MG TABLET PO SCH (08:21)
[2021-03-19] MEDS: buPROPion HCl 75 MG TABLET PO SCH ×2 (08:21→21:35)
[2021-03-19] MEDS: INSULIN GLARGINE SOLOSTAR 100 UNITS/ML 3 ML PEN SC SCH (08:26)
[2021-03-19] MEDS ORDERED: INSULIN HUMAN NPH SC ONE (09:00)
--- NOTE | 2021-03-19 09:36 | XRay Report ---
XR chest 1V portable INDICATION: [place] ^covid. TECHNIQUE: Single frontal radiograph of the chest was obtained. Comparison: Comparison is made to chest one view 03/18/2021 FINDINGS: Lines and tubes are stable. The cardiomediastinal silhouette is stable. Bilateral airspace opacities are somewhat improved from the prior exam. No evidence of pleural effusion or pneumothorax. IMPRESSION: Interval mild improvement in bilateral airspace opacities in this patient with history of viral pneum onia. ACT 112: Negative or not required by law. Electronically signed by: Mike Jacobs M.D. 03/19/2021 9:35 AM
--- NOTE | 2021-03-19 11:52 | Hospitalist Progress Note ---
Date of Service March 19, 2021 Assessment & Plan (1) Acute hypoxemic respiratory failure: Plan: Extensive right-sided pulmonary embolism. CTA did show extensive right-sided pulmonary embolism no echocardiogram was available to assess RV strain The case discussed with manufacturing engineer in [place] Dr. Jacques and was not advised for any TPN given the hemodynamic stability and the patient has been under waiting list as there is no bed in ICU The case was discussed with manufacturing engineer Dr. Resendiz in [facility] and also Dr. Souza the cheese pancake roller who decided to go ahead and give TPA for this patient and heparin. The patient received TPA and followed by intravenous heparin. Status post intubation on 03/17/2021 and remains sedated Management as per manufacturing engineer. Remains intubated/sedated. Secondary to severe COVID-19 pneumonia Did not receive any vaccination for COVID-19 Continue with dexamethasone on admission and finished course of remdesivir. Appreciate pulmonary input and recommendation. Baricitinib has been stopped. C/w decadron and lasix. H/O Hypertension Lisinopril is on hold H/O Anxiety/mood disorder: hold [employer] meds H/O DM2: Hold [employer] oral medications, well-controlled as of recent hemoglobin A1c of 5.19 November 2020 Basal insulin, ISS BG goal 1 10-1 40, carb count coverage, update hemoglobin A1c-6.3 as of 03/09/2021 DVT prophylaxis per Lovenox subcu Has been on TPN and will be given heparin followed by Full code. Admission and Anticipated Discharge Date Admission Date: March 10, 2021 Subjective Remains on mechanical ventilation and remains sedated. Review of Systems Review of Systems: Unobtainable due to endotracheal tube Physical Exam Physical Exam: General: Mechanically ventilated HENT: NCAT, MMM CVS: Bradycardic Resp: b/l good breath sounds Abdomen: Soft, ND/ Extremities: No c/c/e Neuro: Patient remains ventilated Skin: warm and dry, no rashes/lesions/errythema MSK: no joint swelling/erythema Aldridge catheter in place. Results & Data Results & Data ([facility]) Vital Signs (Past 12 Hours) Vital Signs Temp Pulse Pulse Resp BP Pulse Ox 03/19/21 10:45 49 L 93 03/19/21 10:30 46 L 94 03/19/21 10:15 48 L 94 03/19/21 10:00 48 L 93 03/19/21 09:45 47 L 94 03/19/21 09:30 50 L 94 03/19/21 09:15 49 L 94 03/19/21 09:00 49 L 94 03/19/21 08:45 49 L 93 03/19/21 08:30 49 L 93 03/19/21 08:15 36.6 C 50 L 92 03/19/21 08:00 51 L 92 03/19/21 07:45 51 L 90 03/19/21 07:41 36.6 C 47 L 17 93/57 L 96 03/19/21 07:35 49 L 22 96 03/19/21 07:30 48 L 92 03/19/21 07:15 47 L 96 03/19/21 07:01 50 L 95 03/19/21 06:45 50 L 95 03/19/21 06:30 51 L 95 03/19/21 06:15 50 L 94 03/19/21 06:00 53 L 94 03/19/21 05:45 59 L 93 03/19/21 05:30 68 91 03/19/21 05:00 48 L 96 03/19/21 04:45 48 L 96 03/19/21 04:43 46 L 22 96 03/19/21 04:30 48 L 96 03/19/21 04:15 48 L 94 03/19/21 04:04 36.9 C 03/19/21 04:00 49 L 94 03/19/21 03:45 49 L 95 03/19/21 03:30 49 L 94 03/19/21 03:15 48 L 94 03/19/21 03:00 48 L 94 03/19/21 02:45 48 L 93 03/19/21 02:30 49 L 94 03/19/21 02:15 45 L 96 03/19/21 02:00 48 L 96 03/19/21 01:45 47 L 96 03/19/21 01:30 47 L 96 03/19/21 01:15 46 L 96 03/19/21 01:00 47 L 96 03/19/21 00:45 48 L 97 03/19/21 00:30 47 L 96 03/19/21 00:15 48 L 96 03/19/21 00:00 47 L 96 03/18/21 23:58 36.8 C
[2021-03-19] MEDS: PEPTAMEN INTENSE VHP 1.0 CAL 1,000 ML BAG GT SCH (12:40)
[2021-03-19 13:28] LABS: Partial Thromboplastin Ratio 2.2
[2021-03-19 13:50] LABS: Partial Thromboplastin Time 58.8 Seconds (21.0-31.0)
--- NOTE | 2021-03-19 15:07 | Billing Data ---
Date of Service March 19, 2021 Coding Level of Care Code Critical Care 1st - mins
[2021-03-19] MEDS: PROPOFOL BOLUS FROM BAG IV PRN ×2 (22:40→22:53)
[2021-03-20] MEDS: INSULIN ASPART 100 UNITS/ML 3 ML PEN SC SCH ×6 (00:22→20:05)
[2021-03-20] MEDS: ARTIFICIAL TEARS OP OINT 3.5 GM TUBE OP SCH ×7 (00:23→21:11)
[2021-03-20] MEDS: fentaNYL DRIP 1,250 MCG/250 ML BAG IV SCH ×5 (00:45→23:17)
[2021-03-20] MEDS: HEPARIN SODIUM/DEXTROSE 25,000 UNITS/500 ML BAG IV SCH ×5 (00:47→17:27)
[2021-03-20] MEDS: CISATRACURIUM BESYLATE 40 MG in 0.9 % SODIUM CHLORIDE 80 ML IV SCH ×5 (03:12→22:51)
[2021-03-20] MEDS: propofoL 1,000 MG/100 ML VIAL IV SCH ×6 (03:15→19:36)
[2021-03-20] MEDS: PROPOFOL BOLUS FROM BAG IV PRN ×2 (05:37→19:35)
[2021-03-20 06:02] LABS: iSTAT Art Bld Gas pCO2 Correct 51 mmHg (35-46); iSTAT Art Bld Gas pH Corrected 7.422 (7.35-7.45); iSTAT Arterial Blood Gas HCO3 34 meg/L (19-24); iSTAT Arterial Blood Gas pCO2 52 mmHg (35-46); iSTAT Arterial Blood Gas pH 7.42 (7.35-7.45); iSTAT Arterial Blood Gas pO2 86 mmHg (80-95); iSTAT Arterial Blood Gas pO2 C 84; iSTAT Carbon Dioxide 35 mmol/L (24-31); iSTAT FiO2 70 %; iSTAT Hematocrit 33 % (37-47); iSTAT Hemoglobin 11.2 g/dl (12.0-16.0); iSTAT Site Art Line; iSTAT Sodium 139 mmol/L (135-144)
[2021-03-20 07:03] LABS: Eosinophils # (auto) 0.07 K/uL (0-0.5); Eosinophils % (auto) 0.6 %; Hematocrit (blood only) 33.7 % (37-47); Hemoglobin 10.8 g/dL (12.0-16.0); Immature Granulocytes % (auto) 0.9 %; Lymphocytes # (auto) 0.66 K/uL (1.2-3.4); Lymphocytes % (auto) 5.8 %; Mean Corpuscular Hemoglobin 25.8 pg (25-34); Mean Corpuscular Volume 80.4 fL (80-100); Mean Platelet Volume 9.8 fL (7.4-10.4); Monocytes # (auto) 0.67 K/uL (0.11-0.59); Monocytes % (auto) 5.9 %; Neutrophils # (auto) 9.83 K/uL (1.4-6.5); Neutrophils % (auto) 86.8 %; Platelet Count 347 K/uL (130-400); RDW Coefficient of Variation 16.3 % (11.5-14.5); RDW Standard Deviation 47.8 fL (36.4-46.3); Red Blood Count 4.19 M/uL (4.2-5.4); White Blood Count 11.33 K/uL (4.8-10.8)
[2021-03-20 07:21] LABS: BUN Creatinine Ratio 46.8 (10-20); Calcium 8.5 mg/dl (8.5-10.1); Creatinine Clr Calc Pharmacy 162.9 ml/min; Est GFR (African American) 132.4 ml/min; Est GFR (Non-African American) 114.2 ml/min; Magnesium 2.5 mg/dl (1.8-2.4); Phosphorus 2.7 mg/dl (2.5-4.9); Potassium 3.7 mmol/L (3.5-5.1)
[2021-03-20 07:37] LABS: Partial Thromboplastin Ratio 1.7; Partial Thromboplastin Time 44.2 Seconds (21.0-31.0)
--- NOTE | 2021-03-20 08:06 | XRay Report ---
XR chest 1V portable HISTORY: Respiratory failure. Follow-up. COMPARISON: Chest 03/19/2021. FINDINGS: Endotracheal tube terminates approximately 1 cm from the yosef. Left jugular central venou s catheter terminates at the distal left brachiocephalic vein. Extensive bilateral airspace opacities have slightly progressed. The heart remains enlarged. No pneumothorax. No pleural effusions. Nasogas tric tube terminates in the distal stomach. IMPRESSION: 1. Endotracheal tube terminates 1 cm from the yosef. This should be pulled back by approximately 1 c m. 2. Extensive bilateral airspace opacities which have progressed. 3. These findings were called/faxed to the referring physician following dictation. ACT 112: Negative or not required by law. Electronically signed by: Ad Mancini M.D. 03/20/2021 8:04 AM
[2021-03-20] MEDS: FUROSEMIDE 40 MG in SYRINGE 0 ML IV SCH (08:15)
[2021-03-20] MEDS: buPROPion HCl 75 MG TABLET PO SCH ×2 (08:19→21:40)
[2021-03-20] MEDS: SUCRALFATE 1 GM TAB PO SCH ×4 (08:19→21:40)
[2021-03-20] MEDS: busPIRone 5 MG TAB PO SCH (08:20)
[2021-03-20] MEDS: ESCITALOPRAM OXALATE 10 MG TAB PO SCH (08:20)
--- NOTE | 2021-03-20 08:21 | Critical Care Progress Note ---
Date of Service March 20, 2021 Assessment & Plan (1) Pneumonia due to COVID-19 virus: Plan: Reason Critically Ill: Leigh Carballo is a 35 year old female w/ PMHx of DM, anxiety/depression, rheumatoid arthritis, obesity, distant 2.5 pack yr hx tobacco who presents w/ covid pneumonia and worsened hypoxemic respiratory failure due to pulmonary embolism and received tPA. Patient was intubated 03/17/21 for impending resp failure. Neuro - [facility] ICU: sedated, unable to assess. sedation (this AM): propofol, fentanyl, Nimbex (was off at rounds) Triglycerides elevated, but continue propofol for now anxiety/depression: buspar, lexapro, Wellbutrin PO via feeding tube. hold home Vistaril Cardiac - neg trop x1 continue monitoring via telemetry bradycardia. mostly low 50s. monitor. Hypotension: Has not needed pressors Respiratory - Covid pneumonia Continue dexamethasone, lasix. Stopped baricitinib acute hypoxic resp failure 2/2 covid and pulmonary embolism per CTA: 1. Extensive right-sided pulmonary emboli. 2. Extensive groundglass opacities throughout the lungs consistent with viral pneumonia. tPA ordered by pulmonary service O2 support as needed, currently on high flow. cxr 03/17: worsened compared to 03/16. More pulm vasc congestion and opacities. cxr 03/18: slightly worsened airspace opacities. See report. cxr 03/19: slightly improved opacities and aeration. cxr 03/20: worsened bilat opacities - pulled back ETT 1cm ABG w/ worsening oxygenation. Vent settings adjusted, inc in fio2 and peep. repeat abg better oxygenation because of possible resistant hypoxemia, contacted [facility] and [facility] regarding if ecmo would be possible. Unfortunately, patient is not a candidate for ecmo per these facilities. plan: prone in the afternoon. considered adding flolan, but deferred at this time as there was some improvement after adjusting vent settings GI - NPO. Tube feeds. Glycemic consult placed. GI PPx: pepcid 40 IV qam. RENAL/LYTES - No significant electrolyte derangement Replace lytes as needed. - Zhao. Strict Is/Os. 24 hrs 2.8L in 2.5L out. cumulative 14L in 12.6L out. -extra dose of lasix provided ENDO - DM2: SSI and low dose lantus. ICU hyperglycemia protocol. No hx of thyroid disease HEME - Stable H&H. Monitor. Will monitor for any drops in the setting of Heparin gtt ID - Monitor clinically and follow cbc. Afebrile. 03/10/21 UC: high counts mixed kwaku covid: see above. not candidate for ecmo because had PEs procalc 0.15 LINES/IV ACCESS - PIVs intact. + LIJ central venous catheter. DVT PROPHYLAXIS - SCDs. Heparin drip, therapeutic, for PEs code: full dispo: continue ICU status. Continue mechanical ventilation, day 4. Discussed w/ Chey regarding eval for ecmo (2) Diabetes: (3) Morbid obesity: (4) Hypertension: (5) Pulmonary embolism: Admission and Anticipated Discharge Date Admission Date: March 10, 2021 Supervising Physician Co-Signing Physician Notes Dr. Wallace was resident physician during care of patient. I separately evaluated patient for pan portions of the history and the exam. I was present during the critical portion of medical decision making, and I discussed the case with the resident. I generally agree with the findings and plan. Patient was discussed on multidisciplinary rounds Maintain heparin for known PEs Not candidate for ECMO secondary to venous thromboembolic disease. Intubation day 4 Adjusted ventilator settings, consideration for flolan for refractory hypoxemia D/W Dr.s Bryson and Calista at [facility], not a candidate nor space available at this time for ECMO services. Reviewed CTA of chest. D/W Dr. Prescott of [facility] not a candidate for ECMO I updated the patient's , Perfecto, , of status and prognosis. Subjective Patient was unproned 5am. She had desat in the AM. HPI limited because patient sedated. Review of Systems Review of Systems: Unobtainable due to endotracheal tube and Unobtainable due to reduced consciousness Physical Exam Physical Exam: General: Patient is sedated. HEENT: Atraumatic, normocephalic. Pulm: Lungs ctab. Slightly diminished lung sounds. + ETT. Cardiac: RRR, -mrg. Radial pulses intact and symmetrical. No LE edema. Puffy appearance of ankles. Abdominal: Nontender, nondistended, soft. +BS. Integ: Warm, dry, intact. Lines inspected. L IJ, peripherals. Small sore at tip of nose. : + zhao Results & Data Results & Data ([facility]) Vital Signs (Past 12 Hours) Vital Signs sats low 90s. some desats to 80s at 6AM. jaya +50 for stretches of time. afeb Temp Pulse Resp Pulse Ox 03/20/21 07:44 49 L 22 91 03/20/21 06:45 36.7 C 48 L 88 L 03/20/21 06:30 36.7 C 53 L 86 L 03/20/21 06:15 36.8 C 59 L 83 L 03/20/21 06:00 36.8 C 51 L 88 L 03/20/21 05:45 36.6 C 50 L 94 03/20/21 05:30 36.5 C 58 L 91 03/20/21 05:15 84 98 03/20/21 05:00 37.0 C 57 L 92 03/20/21 04:45 37.0 C 68 92 03/20/21 04:30 37.0 C 60 92 03/20/21 04:15 37.0 C 74 92 03/20/21 04:00 37.0 C 69 90 03/20/21 03:50 24 03/20/21 03:45 37.1 C 70 91 03/20/21 03:30 37.1 C 58 L 91 03/20/21 03:15 37.1 C 70 92 03/20/21 03:00 37.1 C 57 L 93 03/20/21 02:45 37.2 C 58 L 93 03/20/21 02:30 37.2 C 52 L 94 03/20/21 02:15 37.2 C 47 L 93 03/20/21 02:00 37.2 C 51 L 93 03/20/21 01:45 37.2 C 50 L 93 03/20/21 01:30 37.2 C 50 L 93 03/20/21 01:15 37.2 C 49 L 92 03/20/21 01:00 37.2 C 49 L 92 03/20/21 00:45 37.2 C 49 L 92 03/20/21 00:30 37.2 C 49 L 92 03/20/21 00:15 37.2 C 52 L 91 03/20/21 00:00 37.2 C 51 L 90 03/19/21 23:45 37.2 C 52 L 89 L 03/19/21 23:30 37.2 C 54 L 88 L 03/19/21 23:15 37.2 C 54 L 88 L 03/19/21 23:00 37.1 C 67 88 L 03/19/21 22:45 37.1 C 69 88 L 03/19/21 22:30 37.1 C 73 22 91 03/19/21 22:15 37.1 C 77 90 03/19/21 22:00 37.1 C 68 90 03/19/21 21:45 37.1 C 53 L 91 03/19/21 21:30 37.1 C 50 L 92 03/19/21 21:15 37.1 C 51 L 92 03/19/21 21:00 37.1 C 50 L 92 03/19/21 20:45 37.1 C 51 L 91 03/19/21 20:30 37.1 C 57 L 91 Laboratory Results wbc downtrending 19->17->15.48->11.33. Hb 13s->12.2->11.7->10.8 slight downtrend. plts 347. abg 7.36->54H/62L/31H->7.42/52H/86/34H. no recent cultures. bradycardia 03/20/21 06:20 03/20/21 06:20 Diagnostic Findings Chest X-Ray 03/19/21 08:00 XR chest 1V portable INDICATION: [place] ^covid. TECHNIQUE: Single frontal radiograph of the chest was obtained. Comparison: Comparison is made to chest one view 03/18/2021 FINDINGS: Lines and tubes are stable. The cardiomediastinal silhouette is stable. Bilateral airspace opacities are somewhat improved from the prior exam. No evidence of pleural effusion or pneumothorax. IMPRESSION: Interval mild improvement in bilateral airspace opacities in this patient with history of viral pneumonia. ACT 112: Negative or not required by law. Electronically signed by: Mike Jacobs M.D. 03/19/2021 9:35 AM Chest X-Ray 03/20/21 07:00 XR chest 1V portable HISTORY: Respiratory failure. Follow-up. COMPARISON: Chest 03/19/2021. FINDINGS: Endotracheal tube terminates approximately 1 cm from the yosef. Left jugular central venous catheter terminates at the distal left brachiocephalic vein. Extensive bilateral airspace opacities have slightly progressed. The heart remains enlarged. No pneumothorax. No pleural effusions. Nasogastric tube terminates in the distal stomach. IMPRESSION: 1. Endotracheal tube terminates 1 cm from the yosef. This should be pulled back by approximately 1 cm. 2. Extensive bilateral airspace opacities which have progressed. 3. These findings were called/faxed to the referring physician following dictation. ACT 112: Negative or not required by law. Electronically signed by: Ad Mancini M.D. 03/20/2021 8:04 AM Critical Care Time I have personally spent 95 minutes of critical care time in the direct management of this patient. This is a life/limb threatening event. This in cludes time spent evaluating patient, direct bedside care, chart review, placing orders, interpretation of diagnostic studies, discussion with consultants, patient, and/or family members regarding treatment decisions, as well as other required patient management activities. This time is exclusive of all separately billable procedures, and teaching time and separate from and in addition to any other critical care service time. Resident Activity Tracking Resident Involvement: Resident Care Provided Care Provided: Adult Hospital Medicine
[2021-03-20] MEDS ORDERED: FUROSEMIDE 40 MG in SYRINGE 0 ML IV ONE (08:32)
[2021-03-20] MEDS: FAMOTIDINE 40 MG TABLET PO SCH (08:32)
[2021-03-20] MEDS: INSULIN GLARGINE SOLOSTAR 100 UNITS/ML 3 ML PEN SC SCH (08:32)
[2021-03-20] MEDS ORDERED: FUROSEMIDE 40 MG/4 ML VIAL IV ONE ×2 (08:45→12:47)
[2021-03-20] MEDS: ICU ELECTROLYTE REPLACEMENT PROTOCOL SCH ×2 (09:15→18:25)
[2021-03-20 09:38] LABS: iSTAT Art Bld Gas pCO2 Correct 50 mmHg (35-46); iSTAT Art Bld Gas pH Corrected 7.408 (7.35-7.45); iSTAT Arterial Blood Gas HCO3 32 meg/L (19-24); iSTAT Arterial Blood Gas pCO2 51 mmHg (35-46); iSTAT Arterial Blood Gas pO2 44 mmHg (80-95); iSTAT Arterial Blood Gas pO2 C 43; iSTAT Carbon Dioxide 33 mmol/L (24-31); iSTAT FiO2 50 %; iSTAT Hematocrit 35 % (37-47); iSTAT Hemoglobin 11.9 g/dl (12.0-16.0); iSTAT Potassium 3.5 mmol/L (3.3-5.0); iSTAT Site Art Line; iSTAT Sodium 139 mmol/L (135-144)
--- NOTE | 2021-03-20 10:10 | Billing Data ---
Date of Service March 20, 2021 Coding Level of Care Code Critical Care 1st - mins
[2021-03-20 11:33] LABS: iSTAT Art Bld Gas pCO2 Correct 54 mmHg (35-46); iSTAT Art Bld Gas pH Corrected 7.384 (7.35-7.45); iSTAT Arterial Blood Gas HCO3 32 meg/L (19-24); iSTAT Arterial Blood Gas pCO2 53 mmHg (35-46); iSTAT Arterial Blood Gas pH 7.39 (7.35-7.45); iSTAT Arterial Blood Gas pO2 75 mmHg (80-95); iSTAT Arterial Blood Gas pO2 C 76; iSTAT Carbon Dioxide 34 mmol/L (24-31); iSTAT FiO2 70 %; iSTAT Hematocrit 32 % (37-47); iSTAT Hemoglobin 10.9 g/dl (12.0-16.0); iSTAT Potassium 3.4 mmol/L (3.3-5.0); iSTAT Site Art Line; iSTAT Sodium 137 mmol/L (135-144)
[2021-03-20] MEDS ORDERED: OPTIRAY 320 125ml IV ONE (11:55)
--- NOTE | 2021-03-20 12:18 | CT Scan Report ---
CT angio chest PE protocol INDICATION: MN ^ON WAY/verifying 18G +covid ^PE . TECHNIQUE: Multidetector row helical CT of the chest was performed. Coronal and sagittal reformations were obtained. Automated dose lowering techniques and/or adjustment according to patient size were u tilized for this exam. Comparison: None available at the time of this dictation. FINDINGS: Lungs and pleura: An endotracheal tube is seen. There is diffuse consolidation and groundglass opacit ies throughout the lungs. Heart and pericardium: There is cardiomegaly without evidence of pericardial effusion. Vessels: Exam is highly limited due to suboptimal contrast timing and severe photons dilation. Howeve r, no large central pulmonary embolism is seen. The pulmonary trunk measures 31 mm in diameter. Mediastinum and hector: Unremarkable. Chest wall and lower neck: Unremarkable. Abdomen: Unremarkable. Bones: Degenerative changes in the thoracic spine. IMPRESSION: 1. Highly limited exam however no large central pulmonary embolism is seen. 2. Diffuse consolidation and groundglass opacities compatible with history of pneumonia. 3. Cardiomegaly and pulmonary hypertension. ACT 112: Negative or not required by law. Electronically signed by: Mike Jacobs M.D. 03/20/2021 12:17 PM
--- NOTE | 2021-03-20 12:43 | Pharmacy Report ---
Pharmacy Glycemic Short Note 2 - Date of Service March 20, 2021 - Glycemic Short BSG Results (Last 24 hours): 03/19/21 03/19/21 03/19/21 12:40 16:19 20:05 Glucose POC Glucose 178 H 170 H 144 H 03/20/21 03/20/21 03/20/21 00:01 04:17 06:20 Glucose 126 H POC Glucose 144 H 135 H 03/20/21 03/20/21 08:14 12:33 Glucose POC Glucose 129 H 96 OUTPATIENT ANTIDIABETIC REGIMEN: * none * A1c = 6.6% 03/18/21 ASSESSMENT: 03/20: * Patient well controlled over the past 24 hours. * Dexamethasone course completed yesterday and thus last dose of NPH administered yesterday morning. * Will increase lantus dose today, but loosen NovoLog scale. Trophic enteral feeds remain. Patient also continues on heparin, which is providing some continuous dextrose as well. 03/18 * Patient w/ h/o "pre-diabetes" admitted for COVID19 viral pneumonia. Latest A1c more consistent w/ dx of DM. * Currently intubated, sedated, receiving paralytics and IV steroids. * Today is day 9 of dexamethasone IV, currently receiving 10mg IV daily in the AM. Tomorrow appears to be the final day of therapy if not reordered * "Tickle" tube feeds have also been running * Pt did become hyperglycemic mid-day yesterday, coinciding w/ IV dexamethasone administration. * Will escalate Novolog correctional / prandial doses and NPH to combat rise in BSGs following AM dexamethasone admin. PLAN FOR INPATIENT GLYCEMIC CONTROL: * Basal insulin * Lantus 10 units SQ QAM (increase) * Last dose of NPH 20 units administered 03/19 * Bolus insulin (decreased) * NovoLog per scale Q 4 hrs * Goal Range: Low 110 mg/dL - High 140 mg/dL * Correction Factor: 25 mg/dL/unit * Nutritional / Prandial insulin per carb ratio of 1 unit per 8 grams CHO consumed PLAN FOR DISCHARGE: * Would recommend diet/lifestyle modifications on discharge. One could consider the addition of metformin in the near future if no contraindications present.
[2021-03-20] MEDS: PEPTAMEN INTENSE VHP 1.0 CAL 1,000 ML BAG GT SCH (12:56)
[2021-03-20] MEDS ORDERED: STAT IV Infusion **Titration per Protocol STA ×2 (13:45→15:18)
--- NOTE | 2021-03-20 14:02 | Hospitalist Progress Note ---
Date of Service March 20, 2021 Assessment & Plan (1) Acute hypoxemic respiratory failure: Plan: Extensive right-sided pulmonary embolism. CTA did show extensive right-sided pulmonary embolism no echocardiogram was available to assess RV strain The case discussed with scale balancer in [place] Dr. Jacques and was not advised for any TPN given the hemodynamic stability and the patient has been under waiting list as there is no bed in ICU The case was discussed with scale balancer Dr. Resendiz in [facility] and also Dr. Souza the military administrative technician who decided to go ahead and give TPA for this patient and heparin. The patient received TPA and followed by intravenous heparin. Status post intubation on 03/17/2021 and remains sedated The condition has been deteriorating Repeat CAT scan did not show any massive embolism but showed continued progressive pneumonia secondary to COVID-19 infection The scale balancer has been trying to get her into ECMO therapy at [facility] Secondary to severe COVID-19 pneumonia Did not receive any vaccination for COVID-19 Continue with dexamethasone on admission and finished course of remdesivir. Appreciate pulmonary input and recommendation. Baricitinib has been stopped. C/w decadron and lasix. Repeat CTA did show progression of the pneumonia We will continue current management H/O Hypertension Lisinopril is on hold H/O Anxiety/mood disorder: hold SNOWMAKER meds H/O DM2: Hold SNOWMAKER oral medications, well-controlled as of recent hemoglobin A1c of 5.19 November 2020 Basal insulin, ISS BG goal 1 10-1 40, carb count coverage, update hemoglobin A1c-6.3 as of 03/09/2021 DVT prophylaxis per Lovenox subcu Received TPA and now on Heparin Full code. Admission and Anticipated Discharge Date Admission Date: March 10, 2021 Subjective 03/11/2021 The patient was seen and examined in medical telemetry unit She has been requiring high flow oxygen to maintain saturation and received remdesivir yesterday Feels shortness of breath with minimal exertion but better at rest 03/12/2029 The patient was seen and examined in medical telemetry unit She has been requiring more oxygen to maintain saturation She is complying with prone positioning 03/13/2021 The patient was seen and examined in medical telemetry unit and in the Covid room Her condition has not improved and is still requiring 40 L of oxygen with 100% FiO2 to maintain saturation 03/14/2021 The patient was seen and examined in medical telemetry unit and in the Covid room She has been getting any better and requiring high flow oxygen to maintain saturation We will sought advice from military administrative technician 03/15/2021 The patient was seen and examined in telemetry unit in Covid room She remains stable and is still requiring 4 L of oxygen to maintain saturation Clinically she feels a little bit better 03/16/2021 The patient was seen and examined in telemetry unit and in the Covid room She remains stable and has been requiring 40 L of oxygen with 100% FiO2 to maintain saturation As her condition has not been improving for the last 2 or 3 days CTA was ordered to rule out pulmonary embolism She did not have any chest pain, cough or hemoptysis 03/17/2021 The patient was seen and examined in telemetry unit and in the Covid room She is being intubated this morning 03/20/2021 The patient was seen and examined in telemetry unit and in the Covid room She remains intubated and the condition has not been getting any better The scale balancer is trying to get her into ECMO therapy in [place] Review of Systems Review of Systems: Unobtainable due to endotracheal tube Physical Exam Physical Exam: Remains sedated on ventilator Constitutional: well developed, well nourished, + ill appearing and + obese Eyes: PERRL, conjunctivae normal, anicteric sclerae ENMT: external ear and nose normal, oropharynx normal Neck: trachea midline, no thyromegaly Respiratory: + respiratory distress Auscultation: + diminished lung sounds and + crackles (At the bases) Cardiovascular: Rate/Rhythm: regular rate and regular rhythm; not tachycardic Heart Sounds: normal S1 and normal S2; no murmur Extremities: + edema (Trace edema bilaterally) Gastrointestinal (Abdomen): Inspection/Auscultation: normal bowel sounds; abdomen not distended Percussion/Palpation: abdomen soft; abdomen nontender Neurologic: Remains sedated Results & Data Results & Data ([facility]) Vital Signs (Past 12 Hours) Vital Signs Temp Pulse Pulse Resp BP BP Pulse Ox 03/20/21 12:04 67 22 97 03/20/21 12:00 54 L 03/20/21 10:44 54 L 22 94 03/20/21 10:00 36.9 C 62 94 03/20/21 09:28 61 23 95 03/20/21 08:10 22 03/20/21 08:00 36.5 C 48 L 98/53 L 88 L 03/20/21 07:44 49 L 22 91 03/20/21 07:00 36.9 C 63 22 98/57 L 93 03/20/21 06:45 36.7 C 48 L 88 L 03/20/21 06:30 36.7 C 53 L 86 L 03/20/21 06:15 36.8 C 59 L 83 L 03/20/21 06:00 36.8 C 51 L 88 L 03/20/21 05:45 36.6 C 50 L 94 03/20/21 05:30 36.5 C 58 L 91 03/20/21 05:15 84 98 03/20/21 05:00 37.0 C 57 L 92 03/20/21 04:45 37.0 C 68 92 03/20/21 04:30 37.0 C 60 92 03/20/21 04:15 37.0 C 74 92 03/20/21 04:00 37.0 C 69 90 03/20/21 03:50 24 03/20/21 03:45 37.1 C 70 91 03/20/21 03:30 37.1 C 58 L 91 03/20/21 03:15 37.1 C 70 92 03/20/21 03:00 37.1 C 57 L 93 03/20/21 02:45 37.2 C 58 L 93 03/20/21 02:30 37.2 C 52 L 94 03/20/21 02:15 37.2 C 47 L 93 03/20/21 02:00 37.2 C 51 L 93 Laboratory Results Short CBC 03/20/21 Range/Units 06:20 WBC 11.33 H (4.8-10.8) K/uL Hgb 10.8 L (12.0-16.0) g/dL Hct 33.7 L (37-47) % Plt Count 347 (130-400) K/uL BMP 03/20/21 06:20 Sodium 138 Potassium 3.7 Chloride 104 Carbon Dioxide 29 BUN 30 H Creatinine 0.65 Glucose 126 H Calcium 8.5 Medications Administered Current Inpatient Medications Acetaminophen (Acetaminophen 325 Mg Tab) 650 mg PO Q4H PRN PRN Reason: Pain or Fever Stop: 04/09/21 03:08 Last Admin: 03/11/21 11:45 Dose: 650 mg Documented by: Albuterol (Albuterol Hfa 8 Gm Inhaler) 2 puffs INH Q2R PRN PRN Reason: sob/wheeze Stop: 04/10/21 00:12 Bupropion HCl (Bupropion Xl 150 Mg Tabcr) 150 mg PO QAM [facility] Stop: 04/09/21 08:59 Last Admin: 03/17/21 08:34 Dose: 150 mg Documented by: Bupropion HCl (Bupropion Hcl 75 Mg Tablet) 75 mg PO BID [facility] Stop: 04/17/21 20:59 Last Admin: 03/20/21 08:19 Dose: 75 mg Documented by: Buspirone HCl (Buspirone 5 Mg Tab) 10 mg PO QAM [facility] Stop: 04/09/21 08:59 Last Admin: 03/20/21 08:20 Dose: 10 mg Documented by: Clonazepam (Clonazepam 1 Mg Tab) 1 mg PO TID PRN PRN Reason: Anxiety Stop: 04/09/21 03:08 Last Admin: 03/16/21 22:11 Dose: 1 mg Documented by: Dextrose (Dextrose 50% 50 Ml Syringe) 25 - 50 ml IV UD PRN; Protocol PRN Reason: Hypoglycemia Protocol Stop: 04/09/21 03:08 Escitalopram Oxalate (Escitalopram Oxalate 10 Mg Tab) 30 mg PO [facility] Stop: 04/09/21 08:59 Last Admin: 03/20/21 08:20 Dose: 30 mg Documented by: Famotidine (Famotidine 40 Mg Tablet) 40 mg PO [facility] Stop: 04/09/21 08:59 Last Admin: 03/20/21 08:32 Dose: 40 mg Documented by: Fentanyl Citrate (Fentanyl Bolus From Bag) 50 mcg IV Q60M PRN PRN Reason: Pain or Agitation Stop: 03/31/21 10:47 Last Admin: 03/20/21 05:37 Dose: 50 mcg Documented by: Glucagon (Glucagon For Inj 1 Mg Vial) 1 mg SQ UD PRN; Protocol PRN Reason: Hypoglycemia Protocol Stop: 04/09/21 03:08 Glucose (Glucose 10 Tabs/Tube) 4 - 8 tabs PO UD PRN; Protocol PRN Reason: Hypoglycemia Protocol Stop: 04/09/21 03:08 Glucose (Glucose 40% Gel 15 Gm Tube) 15 - 30 gm PO UD PRN; Protocol PRN Reason: Hypoglycemia Protocol Stop: 04/09/21 03:08 Hydromorphone HCl (Hydromorphone Hcl 2 Mg Tab) 4 mg PO QID PRN PRN Reason: severe headache Stop: 03/24/21 03:17 Hydroxyzine HCl (Hydroxyzine Hcl 25 Mg Tab) 25 mg PO HS [facility] Stop: 04/09/21 04:14 Last Admin: 03/16/21 22:12 Dose: Not Given Documented by: Promethazine HCl 12.5 mg/ (Sodium Chloride) 50.5 mls @ 202 mls/hr IV Q6H PRN PRN Reason: Nausea And Vomiting Stop: 04/09/21 03:08 Last Infusion: 03/11/21 02:02 Dose: Infused Documented by: Furosemide 40 mg/ Syringe 4 mls @ 4 mls/min IV DAILY [facility] Stop: 04/14/21 09:29 Last Admin: 03/20/21 08:15 Dose: 4 mls/min Documented by: Heparin Sodium/Dextrose (Heparin Sodium/Dextrose) 25,000 units in 500 mls @ 39 mls/hr IV .[id number] [facility]; Protocol Stop: 04/16/21 01:59 Last Admin: 03/20/21 13:04 Dose: Not Given Documented by: Fentanyl Citrate (Fentanyl Drip) 1,250 mcg in 250 mls @ 40 mls/hr IV .Q6H15M [facility]; Protocol Stop: 03/31/21 10:59 Last Admin: 03/20/21 13:02 Dose: Not Given Documented by: Norepinephrine Bitartrate (Levophed/D5w) 8 mg in 508 mls @ 0 mls/hr IV .Q0M [facility]; Protocol Stop: 04/17/21 06:44 Last Titration: 03/18/21 07:30 Dose: 0 mcg/kg/min, 0 mls/hr Documented by: Propofol (Diprivan) 1,000 mg in 100 mls @ 15.204 mls/hr IV .Q6H35M [facility]; Protocol Stop: 03/23/21 13:44 Insulin Aspart (Insulin Aspart 100 Units/Ml 3 Ml Pen) 0 units SC Q4 [facility] Stop: 04/17/21 11:59 Last Admin: 03/20/21 13:02 Dose: Not Given Documented by: Insulin Glargine (Insulin Glargine Solostar 100 Units/Ml 3 Ml Pen) 10 units SC DAILY [facility] Stop: 04/19/21 08:59 Last Admin: 03/20/21 08:32 Dose: 10 units Documented by: Meclizine HCl (Meclizine Hcl 25 Mg Tab) 25 mg PO DAILY PRN PRN Reason: Vertigo Stop: 04/09/21 03:18 Miscellaneous (Carbohydrates For Hypoglycemia ) 15 - 30 gm PO UD PRN PRN Reason: Hypoglycemia Protocol Stop: 04/09/21 03:08 Miscellaneous (Icu Electrolyte Replacement Protocol) 1 ea N/A BID@06,18 [facility]; Protocol Stop: 03/24/21 17:59 Last Admin: 03/20/21 09:15 Dose: 1 ea Documented by: Miscellaneous Information (Pharmacy Glycemic Mgmt Consult) 1 ea N/A UD PRN PRN Reason: Consult Stop: 04/17/21 09:45 Multi-Ingredient Cream (Artificial Tears Op Oint 3.5 Gm Tube) 1 appln OP Q4H [facility] Stop: 04/16/21 11:44 Last Admin: 03/20/21 12:44 Dose: 1 appln Documented by: Nutritional Formula (Peptamen Intense Vhp 1.0 Donnell 1,000 Ml Bag) 1,000 ml GT CONT [facility]; Protocol Stop: 04/16/21 12:14 Last Admin: 03/20/21 12:56 Dose: 1,000 ml Documented by: Propofol (Propofol Bolus From Bag) 20 mg IV Q5M PRN PRN Reason: Sedation Stop: 03/23/21 13:44 Sucralfate (Sucralfate 1 Gm Tab) 1 gm PO ACHS [facility] Stop: 04/09/21 07:29 Last Admin: 03/20/21 12:45 Dose: 1 gm Documented by:
[2021-03-20] MEDS ORDERED: EPOPROSTENOL SODIUM (GLYCINE) 1.5 MG/5 ML INH PRN (15:17)
[2021-03-20] MEDS ORDERED: CISATRACURIUM BESYLATE IV SOLN 2 MG/ML 10 ML VIAL IV STA (15:18)
[2021-03-20 15:52] LABS: Partial Thromboplastin Ratio 1.5
[2021-03-20 17:09] LABS: iSTAT Art Bld Gas pCO2 Correct 76 mmHg (35-46); iSTAT Art Bld Gas pH Corrected 7.287 (7.35-7.45); iSTAT Arterial Blood Gas HCO3 36 meg/L (19-24); iSTAT Arterial Blood Gas pCO2 76 mmHg (35-46); iSTAT Arterial Blood Gas pH 7.29 (7.35-7.45); iSTAT Arterial Blood Gas pO2 72 mmHg (80-95); iSTAT Arterial Blood Gas pO2 C 72; iSTAT Carbon Dioxide 38 mmol/L (24-31); iSTAT FiO2 50 %; iSTAT Hematocrit 34 % (37-47); iSTAT Hemoglobin 11.6 g/dl (12.0-16.0); iSTAT Potassium 3.4 mmol/L (3.3-5.0); iSTAT Site Art Line; iSTAT Sodium 140 mmol/L (135-144)
[2021-03-20 23:25] LABS: Partial Thromboplastin Ratio 1.8
[2021-03-20 23:32] LABS: Partial Thromboplastin Time 48.3 Seconds (21.0-31.0)
[2021-03-21] MEDS: propofoL 1,000 MG/100 ML VIAL IV SCH ×6 (00:06→12:44)
[2021-03-21] MEDS: INSULIN ASPART 100 UNITS/ML 3 ML PEN SC SCH ×7 (00:17→23:58)
[2021-03-21] MEDS: CISATRACURIUM BESYLATE 40 MG in 0.9 % SODIUM CHLORIDE 80 ML IV SCH ×5 (02:21→11:40)
[2021-03-21] MEDS: HEPARIN SODIUM/DEXTROSE 25,000 UNITS/500 ML BAG IV SCH ×5 (03:36→18:07)
[2021-03-21] MEDS: PROPOFOL BOLUS FROM BAG IV PRN ×2 (04:22→05:20)
[2021-03-21] MEDS: fentaNYL DRIP 1,250 MCG/250 ML BAG IV SCH ×10 (04:45→21:14)
[2021-03-21 04:59] LABS: iSTAT Art Bld Gas pCO2 Correct 76 mmHg (35-46); iSTAT Arterial Blood Gas HCO3 38 meg/L (19-24); iSTAT Arterial Blood Gas pCO2 77 mmHg (35-46); iSTAT Arterial Blood Gas pO2 94 mmHg (80-95); iSTAT Arterial Blood Gas pO2 C 93; iSTAT Carbon Dioxide > 40 mmol/L (24-31); iSTAT FiO2 50 %; iSTAT Hematocrit 33 % (37-47); iSTAT Hemoglobin 11.2 g/dl (12.0-16.0); iSTAT Potassium 3.6 mmol/L (3.3-5.0); iSTAT Site Art Line; iSTAT Sodium 139 mmol/L (135-144)
[2021-03-21] MEDS: ARTIFICIAL TEARS OP OINT 3.5 GM TUBE OP SCH ×7 (05:46→23:57)
[2021-03-21 06:32] LABS: Partial Thromboplastin Ratio 1.7; Partial Thromboplastin Time 44.1 Seconds (21.0-31.0)
[2021-03-21 06:44] LABS: BUN Creatinine Ratio 50.2 (10-20); Calcium 8.7 mg/dl (8.5-10.1); Creatinine Clr Calc Pharmacy 204.3 ml/min; Est GFR (African American) 142.5 ml/min; Est GFR (Non-African American) 122.9 ml/min; Magnesium 2.1 mg/dl (1.8-2.4); Potassium 3.6 mmol/L (3.5-5.1)
[2021-03-21 07:01] LABS: Phosphorus 3.8 mg/dl (2.5-4.9)
[2021-03-21] MEDS: NOREPINEPHRINE/D5W 8 MG/508 ML BAG IV SCH ×2 (07:21→07:23)
--- NOTE | 2021-03-21 07:41 | XRay Report ---
XR chest 1V portable HISTORY: 35 years-old Female covid acute shortness of breath COMPARISON: CTA chest and chest radiograph 03/20/2021 TECHNIQUE: Portable AP view of the chest FINDINGS: The cardiac silhouette is enlarged. Endotracheal tube overlies the midline, 2.6 cm superior to the ca jonathon. Enteric tube courses below the diaphragm with distal tip outside the [id number]. A left IJ c entral venous catheter is redemonstrated with distal tip in the expected location of the brachiocepha lic vein. No pneumothorax. Mild right hemidiaphragmatic elevation. Mixed interstitial and alveolar op acities appear generally unchanged. No large pleural effusion. No acute fracture. IMPRESSION: 1. Lines and tubes as above. 2. Unchanged extensive multifocal pneumonia. 3. No pneumothorax. ACT 112: Negative or not required by law. The above report was generated using voice recognition software. It may contain grammatical, syntax o r spelling errors. Electronically signed by: Dago De La Rosa M.D. 03/21/2021 7:39 AM
[2021-03-21] MEDS: POTASSIUM CHLORIDE / WTR 20 MEQ/100 ML PLCT IV SCH ×2 (07:48→09:24)
[2021-03-21] MEDS: ICU ELECTROLYTE REPLACEMENT PROTOCOL SCH ×2 (08:06→17:41)
[2021-03-21] MEDS: FUROSEMIDE 40 MG in SYRINGE 0 ML IV SCH (08:34)
[2021-03-21] MEDS: busPIRone 5 MG TAB PO SCH (08:35)
[2021-03-21] MEDS: SUCRALFATE 1 GM TAB PO SCH ×4 (08:35→21:39)
[2021-03-21] MEDS: ESCITALOPRAM OXALATE 10 MG TAB PO SCH (08:35)
[2021-03-21] MEDS: FAMOTIDINE 40 MG TABLET PO SCH (08:35)
[2021-03-21] MEDS: buPROPion HCl 75 MG TABLET PO SCH ×2 (08:36→21:38)
--- NOTE | 2021-03-21 09:06 | Critical Care Progress Note ---
Date of Service March 21, 2021 Assessment & Plan (1) Pneumonia due to COVID-19 virus: Plan: Reason Critically Ill: Leigh Carballo is a 35 year old female w/ PMHx of DM, anxiety/depression, rheumatoid arthritis, obesity, distant 2.5 pack yr hx tobacco who presents w/ covid pneumonia and worsened hypoxemic respiratory failure due to pulmonary embolism. She has received almost a full course of tPA. Patient was intubated 03/17/21 for impending resp failure. Neuro - sedation: propofol, fentanyl, nimbex -Discontinue Nimbex today anxiety/depression: buspar, lexapro, Wellbutrin PO via feeding tube. hold home Vistaril Cardiac - neg trop x1 continue monitoring via telemetry bradycardia. mostly low 50s. monitor. Hypotension: Has not needed pressors Respiratory - Covid pneumonia Continue dexamethasone, lasix. Stopped baricitinib acute hypoxic resp failure 2/2 covid and pulmonary embolism per CTA: Status post 100 mg TPA -Repeat imaging demonstrates no central pulmonary embolism GI - NPO. Trickle tube feeds. Glycemic consult placed. GI PPx: pepcid 40 IV qam. RENAL/LYTES - No significant electrolyte derangement Replace lytes as needed. - [place]. Strict Is/Os. ENDO - DM2: SSI and low dose lantus. ICU hyperglycemia protocol. No hx of thyroid disease HEME - Stable H&H. Monitor. -Continue heparin infusion ID - Afebrile covid: see above. not candidate for ecmo because had PEs LINES/IV ACCESS - PIVs intact. + LIJ central venous catheter. DVT PROPHYLAXIS - SCDs. Heparin drip, therapeutic, for PEs code: full dispo: continue ICU status. Continue mechanical ventilation, day 5. Discussed w/ Chey and Roge regarding eval for ecmo: Not a candidate (2) Diabetes: (3) Morbid obesity: (4) Hypertension: (5) Pulmonary embolism: Admission and Anticipated Discharge Date Admission Date: March 10, 2021 Supervising Physician Co-Signing Physician Notes Patient remains critically ill. Subjective Return to supine position this morning no overnight events Physical Exam Physical Exam: General: GCS 3 TP Skin: Warm, dry, Head: Atraumatic Ears, nose, mouth and throat: airway obscured by endotracheal tube Cardiovascular: Normal peripheral perfusion Respiratory: Ventilator settings reviewed Gastrointestinal: Non distended Musculoskeletal: No deformity Results & Data Results & Data ([facility]) Vital Signs (Past 12 Hours) Vital Signs Temp Pulse Resp Pulse Ox 03/21/21 08:01 54 L 22 92 03/21/21 05:30 36.8 C 66 89 L 03/21/21 05:15 36.8 C 68 89 L 03/21/21 05:00 36.6 C 59 L 95 03/21/21 04:45 36.6 C 60 94 03/21/21 04:30 36.7 C 58 L 95 03/21/21 04:15 36.7 C 60 96 03/21/21 04:00 36.7 C 60 22 96 03/21/21 03:45 36.7 C 60 96 03/21/21 03:30 36.6 C 57 L 96 03/21/21 03:15 36.6 C 59 L 96 03/21/21 03:00 36.6 C 59 L 96 03/21/21 02:45 36.6 C 60 95 03/21/21 02:30 36.5 C 61 95 03/21/21 02:15 36.5 C 61 96 03/21/21 02:00 36.4 C L 61 96 03/21/21 01:45 36.4 C L 61 96 03/21/21 01:30 36.5 C 62 96 03/21/21 01:15 36.4 C L 61 97 03/21/21 01:00 36.4 C L 61 97 03/21/21 00:45 36.4 C L 61 97 03/21/21 00:30 36.4 C L 59 L 95 03/21/21 00:15 36.4 C L 61 95 03/21/21 00:00 36.5 C 62 96 03/20/21 23:45 36.4 C L 61 96 03/20/21 23:30 36.4 C L 61 97 03/20/21 23:15 36.4 C L 62 96 03/20/21 23:00 36.5 C 62 96 03/20/21 22:45 36.4 C L 61 96 03/20/21 22:30 36.4 C L 60 95 03/20/21 22:19 61 23 95 03/20/21 22:15 36.4 C L 60 96 03/20/21 22:00 36.4 C L 60 96 03/20/21 21:45 36.4 C L 60 96 03/20/21 21:30 36.4 C L 61 96 03/20/21 21:15 36.4 C L 59 L 94 Laboratory Results 03/21/21 03/21/21 03/21/21 Range/Units 07:46 06:01 06:01 POC Hgb (12.0-16.0) g/dl POC Hct (37-47) % APTT 44.1 H (21.0-31.0) Seconds PTT Ratio 1.7 Sample Site POC pH (7.35-7.45) POC pCO2 (35-46) mmHg POC pO2 (80-95) mmHg POC HCO3 (19-24) eleonora/L POC Total CO2 (24-31) mmol/L POC Base Excess (-9-1.8) eleonora/L ABG pH (Temp Correct) (7.35-7.45) ABG pCO2 (Temp Corrct (35-46) mmHg POC ABG pO2 at Pt Temp POC ABG O2 Sat (90-95) % Howard Test O2 Delivery Device POC O2 Rate Minute Ventilation POC FiO2 % Tidal Volume PEEP POC Sodium (135-144) mmol/L Sodium 136 (136-145) mmol/L POC Potassium (3.3-5.0) mmol/L Potassium 3.6 (3.5-5.1) mmol/L Chloride 101 (98-107) mmol/L Carbon Dioxide 31 (21-32) mmol/L Anion Gap 4.0 (3-11) BUN 26 H (7-18) mg/dl Creatinine 0.52 L (0.6-1.2) mg/dl Est Cr Clr Drug Dosing 204.3 ml/min Est GFR ( Amer) 142.5 ml/min Est GFR (Non-Af Amer) 122.9 ml/min BUN/Creatinine Ratio 50.2 H (10-20) Glucose 107 H (70-99) mg/dl POC Glucose 106 H (70-99) mg/dl Lactate (0.4-2.0) mmol/L Calcium 8.7 (8.5-10.1) mg/dl Phosphorus 3.8 D (2.5-4.9) mg/dl Magnesium 2.1 (1.8-2.4) mg/dl 03/21/21 03/21/21 03/21/21 Range/Units 04:45 04:21 00:15 POC Hgb 11.2 L (12.0-16.0) g/dl POC Hct 33 L (37-47) % APTT (21.0-31.0) Seconds PTT Ratio Sample Site Art Line POC pH 7.30 L (7.35-7.45) POC pCO2 77 H (35-46) mmHg POC pO2 94 (80-95) mmHg POC HCO3 38 H (19-24) eleonora/L POC Total CO2 > 40 H* (24-31) mmol/L POC Base Excess 11.0 H (-9-1.8) eleonora/L ABG pH (Temp Correct) 7.300 L (7.35-7.45) ABG pCO2 (Temp Corrct 76 H (35-46) mmHg POC ABG pO2 at Pt Temp 93 POC ABG O2 Sat 96.0 H (90-95) % Howard Test NA O2 Delivery Device Ventilator POC O2 Rate 22 Minute Ventilation POC FiO2 50 % Tidal Volume 300 PEEP 18 POC Sodium 139 (135-144) mmol/L Sodium (136-145) mmol/L POC Potassium 3.6 (3.3-5.0) mmol/L Potassium (3.5-5.1) mmol/L Chloride (98-107) mmol/L Carbon Dioxide (21-32) mmol/L Anion Gap (3-11) BUN (7-18) mg/dl Creatinine (0.6-1.2) mg/dl Est Cr Clr Drug Dosing ml/min Est GFR ( Amer) ml/min Est GFR (Non-Af Amer) ml/min BUN/Creatinine Ratio (10-20) Glucose (70-99) mg/dl POC Glucose 95 109 H (70-99) mg/dl Lactate (0.4-2.0) mmol/L Calcium (8.5-10.1) mg/dl Phosphorus (2.5-4.9) mg/dl Magnesium (1.8-2.4) mg/dl 03/20/21 03/20/21 03/20/21 Range/Units 22:39 20:04 16:52 POC Hgb 11.6 L (12.0-16.0) g/dl POC Hct 34 L (37-47) % APTT 48.3 H* (21.0-31.0) Seconds PTT Ratio 1.8 Sample Site Art Line POC pH 7.29 L (7.35-7.45) POC pCO2 76 H (35-46) mmHg POC pO2 72 L (80-95) mmHg POC HCO3 36 H (19-24) eleonora/L POC Total CO2 38 H (24-31) mmol/L POC Base Excess 10.0 H (-9-1.8) eleonora/L ABG pH (Temp Correct) 7.287 L (7.35-7.45) ABG pCO2 (Temp Corrct 76 H (35-46) mmHg POC ABG pO2 at Pt Temp 72 POC ABG O2 Sat 91.0 (90-95) % Howard Test NA O2 Delivery Device Ventilator POC O2 Rate 22 Minute Ventilation POC FiO2 50 % Tidal Volume 300 PEEP 18 POC Sodium 140 (135-144) mmol/L Sodium (136-145) mmol/L POC Potassium 3.4 (3.3-5.0) mmol/L Potassium (3.5-5.1) mmol/L Chloride (98-107) mmol/L Carbon Dioxide (21-32) mmol/L Anion Gap (3-11) BUN (7-18) mg/dl Creatinine (0.6-1.2) mg/dl Est Cr Clr Drug Dosing ml/min Est GFR ( Amer) ml/min Est GFR (Non-Af Amer) ml/min BUN/Creatinine Ratio (10-20) Glucose (70-99) mg/dl POC Glucose 110 H (70-99) mg/dl Lactate (0.4-2.0) mmol/L Calcium (8.5-10.1) mg/dl Phosphorus (2.5-4.9) mg/dl Magnesium (1.8-2.4) mg/dl 03/20/21 03/20/21 03/20/21 Range/Units 16:33 15:29 15:28 POC Hgb (12.0-16.0) g/dl POC Hct (37-47) % APTT 40.0 H (21.0-31.0) Seconds PTT Ratio 1.5 Sample Site POC pH (7.35-7.45) POC pCO2 (35-46) mmHg POC pO2 (80-95) mmHg POC HCO3 (19-24) eleonora/L POC Total CO2 (24-31) mmol/L POC Base Excess (-9-1.8) eleonora/L ABG pH (Temp Correct) (7.35-7.45) ABG pCO2 (Temp Corrct (35-46) mmHg POC ABG pO2 at Pt Temp POC ABG O2 Sat (90-95) % Howard Test O2 Delivery Device POC O2 Rate Minute Ventilation POC FiO2 % Tidal Volume PEEP POC Sodium (135-144) mmol/L Sodium (136-145) mmol/L POC Potassium (3.3-5.0) mmol/L Potassium (3.5-5.1) mmol/L Chloride (98-107) mmol/L Carbon Dioxide (21-32) mmol/L Anion Gap (3-11) BUN (7-18) mg/dl Creatinine (0.6-1.2) mg/dl Est Cr Clr Drug Dosing ml/min Est GFR ( Amer) ml/min Est GFR (Non-Af Amer) ml/min BUN/Creatinine Ratio (10-20) Glucose (70-99) mg/dl POC Glucose 102 H (70-99) mg/dl Lactate 1.6 (0.4-2.0) mmol/L Calcium (8.5-10.1) mg/dl Phosphorus (2.5-4.9) mg/dl Magnesium (1.8-2.4) mg/dl 03/20/21 03/20/21 03/20/21 Range/Units 12:33 11:09 09:20 POC Hgb 10.9 L 11.9 L (12.0-16.0) g/dl POC Hct 32 L 35 L (37-47) % APTT (21.0-31.0) Seconds PTT Ratio Sample Site Art Line Art Line POC pH 7.39 7.40 (7.35-7.45) POC pCO2 53 H 51 H (35-46) mmHg POC pO2 75 L 44 L (80-95) mmHg POC HCO3 32 H 32 H (19-24) eleonora/L POC Total CO2 34 H 33 H (24-31) mmol/L POC Base Excess 7.0 H 7.0 H (-9-1.8) eleonora/L ABG pH (Temp Correct) 7.384 7.408 (7.35-7.45) ABG pCO2 (Temp Corrct 54 H 50 H (35-46) mmHg POC ABG pO2 at Pt Temp 76 43 POC ABG O2 Sat 94.0 79.0 L (90-95) % Howard Test NA NA O2 Delivery Device Ventilator Ventilator POC O2 Rate 22 22 Minute Ventilation 8.3 7.1 POC FiO2 70 50 % Tidal Volume 380 380 PEEP 20 18 POC Sodium 137 139 (135-144) mmol/L Sodium (136-145) mmol/L POC Potassium 3.4 3.5 (3.3-5.0) mmol/L Potassium (3.5-5.1) mmol/L Chloride (98-107) mmol/L Carbon Dioxide (21-32) mmol/L Anion Gap (3-11) BUN (7-18) mg/dl Creatinine (0.6-1.2) mg/dl Est Cr Clr Drug Dosing ml/min Est GFR ( Amer) ml/min Est GFR (Non-Af Amer) ml/min BUN/Creatinine Ratio (10-20) Glucose (70-99) mg/dl POC Glucose 96 (70-99) mg/dl Lactate (0.4-2.0) mmol/L Calcium (8.5-10.1) mg/dl Phosphorus (2.5-4.9) mg/dl Magnesium (1.8-2.4) mg/dl Coding Level of Care Code Critical Care 1st 30-74 mins Diagnoses Pneumonia due to COVID-19 virus U07.1; J12.82 Diabetes E11.9 Morbid obesity E66.01 Hypertension I10 Pulmonary embolism I26.99 Time Spent (min) 45
[2021-03-21] MEDS: INSULIN GLARGINE SOLOSTAR 100 UNITS/ML 3 ML PEN SC SCH (09:23)
[2021-03-21] MEDS ORDERED: MIDAZOLAM HCL 125 MG/250 ML BAG IV PRN (11:17)
[2021-03-21] MEDS ORDERED: STAT IV Infusion **Titration per Protocol STA (11:17)
[2021-03-21] MEDS ORDERED: MIDAZOLAM BOLUS FROM BAG IV PRN (11:17)
[2021-03-21] MEDS ORDERED: MIDAZOLAM HCL 125MG/250ML D5W ONE (11:30)
[2021-03-21] MEDS: MIDAZOLAM HCL 125 MG/250 ML BAG IV SCH (11:39)
[2021-03-21 14:24] LABS: Partial Thromboplastin Ratio 1.6; Partial Thromboplastin Time 42.6 Seconds (21.0-31.0)
--- NOTE | 2021-03-21 14:58 | Hospitalist Progress Note ---
Date of Service March 21, 2021 Assessment & Plan (1) Acute hypoxemic respiratory failure: Plan: Extensive right-sided pulmonary embolism. CTA did show extensive right-sided pulmonary embolism no echocardiogram was available to assess RV strain The case discussed with superintendent service in [place] Dr. Jacques and was not advised for any TPN given the hemodynamic stability and the patient has been under waiting list as there is no bed in ICU The case was discussed with superintendent service Dr. Resendiz in [facility] and also Dr. oSuza the shop coordinator who decided to go ahead and give TPA for this patient and heparin. The patient received TPA and followed by intravenous heparin. Status post intubation on 03/17/2021 and remains sedated The condition has been deteriorating Repeat CAT scan did not show any massive embolism but showed continued progressive pneumonia secondary to COVID-19 infection The superintendent service has been trying to get her into ECMO therapy at [facility]-ECMO therapy is denied Remains stable and has been requiring FiO2 of 0.7 to maintain saturation Secondary to severe COVID-19 pneumonia Did not receive any vaccination for COVID-19 Continue with dexamethasone on admission and finished course of remdesivir. Appreciate pulmonary input and recommendation. Baricitinib has been stopped. C/w decadron and lasix. Repeat CTA did show progression of the pneumonia We will continue current management H/O Hypertension Lisinopril is on hold H/O Anxiety/mood disorder: hold H[facility] meds H/O DM2: Hold H[facility] oral medications, well-controlled as of recent hemoglobin A1c of 5.19 November 2020 Basal insulin, ISS BG goal 1 10-1 40, carb count coverage, update hemoglobin A1c-6.3 as of 03/09/2021 DVT prophylaxis per Lovenox subcu Received TPA and now on Heparin Full code. Admission and Anticipated Discharge Date Admission Date: March 10, 2021 Subjective 03/11/2021 The patient was seen and examined in medical telemetry unit She has been requiring high flow oxygen to maintain saturation and received remdesivir yesterday Feels shortness of breath with minimal exertion but better at rest 03/12/2029 The patient was seen and examined in medical telemetry unit She has been requiring more oxygen to maintain saturation She is complying with prone positioning 03/13/2021 The patient was seen and examined in medical telemetry unit and in the Covid room Her condition has not improved and is still requiring 40 L of oxygen with 100% FiO2 to maintain saturation 03/14/2021 The patient was seen and examined in medical telemetry unit and in the Covid room She has been getting any better and requiring high flow oxygen to maintain saturation We will sought advice from shop coordinator 03/15/2021 The patient was seen and examined in telemetry unit in Covid room She remains stable and is still requiring 4 L of oxygen to maintain saturation Clinically she feels a little bit better 03/16/2021 The patient was seen and examined in telemetry unit and in the Covid room She remains stable and has been requiring 40 L of oxygen with 100% FiO2 to maintain saturation As her condition has not been improving for the last 2 or 3 days CTA was ordered to rule out pulmonary embolism She did not have any chest pain, cough or hemoptysis 03/17/2021 The patient was seen and examined in telemetry unit and in the Covid room She is being intubated this morning 03/20/2021 The patient was seen and examined in telemetry unit and in the Covid room She remains intubated and the condition has not been getting any better The superintendent service is trying to get her into ECMO therapy in [place] 03/21/2021 The patient was seen and examined in telemetry unit and in the Covid room She remains sedated and intubated Review of Systems Review of Systems: Unobtainable due to endotracheal tube Physical Exam Physical Exam: Remains sedated on ventilator Constitutional: well developed, well nourished, + ill appearing and + obese Eyes: PERRL, conjunctivae normal, anicteric sclerae ENMT: external ear and nose normal, oropharynx normal Neck: trachea midline, no thyromegaly Respiratory: + respiratory distress Auscultation: + diminished lung sounds and + crackles (At the bases) Cardiovascular: Rate/Rhythm: regular rate and regular rhythm; not tachycardic Heart Sounds: normal S1 and normal S2; no murmur Extremities: + edema (Trace edema bilaterally) Gastrointestinal (Abdomen): Inspection/Auscultation: normal bowel sounds; abdomen not distended Percussion/Palpation: abdomen soft; abdomen nontender Neurologic: Has been on mechanical ventilator Lymphatic: no cervical or axillary lymphadenopathy Results & Data Results & Data ([facility]) Vital Signs (Past 12 Hours) Vital Signs Temp Pulse Resp Pulse Ox 03/21/21 12:30 37.2 C 59 L 90 03/21/21 12:01 59 L 03/21/21 12:00 37.2 C 57 L 97 03/21/21 11:30 37.3 C 58 L 94 03/21/21 11:28 58 L 24 90 03/21/21 11:00 37.2 C 61 92 03/21/21 10:30 37.1 C 64 88 L 03/21/21 10:00 37.0 C 60 91 03/21/21 09:30 36.8 C 58 L 91 03/21/21 09:00 36.7 C 58 L 93 03/21/21 08:30 36.6 C 53 L 93 03/21/21 08:01 54 L 22 92 03/21/21 08:00 36.6 C 54 L 91 03/21/21 07:30 36.5 C 52 L 95 03/21/21 07:00 36.5 C 51 L 96 03/21/21 06:30 36.6 C 53 L 94 03/21/21 06:00 36.7 C 58 L 93 03/21/21 05:30 36.8 C 66 89 L 03/21/21 05:15 36.8 C 68 89 L 03/21/21 05:00 36.6 C 59 L 95 03/21/21 04:45 36.6 C 60 94 03/21/21 04:30 36.7 C 58 L 95 03/21/21 04:15 36.7 C 60 96 03/21/21 04:00 36.7 C 60 22 96 03/21/21 03:45 36.7 C 60 96 03/21/21 03:30 36.6 C 57 L 96 03/21/21 03:15 36.6 C 59 L 96 03/21/21 03:00 36.6 C 59 L 96 Laboratory Results BMP 03/21/21 06:01 Sodium 136 Potassium 3.6 Chloride 101 Carbon Dioxide 31 BUN 26 H Creatinine 0.52 L Glucose 107 H Calcium 8.7 Medications Administered Current Inpatient Medications Acetaminophen (Acetaminophen 325 Mg Tab) 650 mg PO Q4H PRN PRN Reason: Pain or Fever Stop: 04/09/21 03:08 Last Admin: 03/11/21 11:45 Dose: 650 mg Documented by: Albuterol (Albuterol Hfa 8 Gm Inhaler) 2 puffs INH Q2R PRN PRN Reason: sob/wheeze Stop: 04/10/21 00:12 Bupropion HCl (Bupropion Xl 150 Mg Tabcr) 150 mg PO QAM [facility] Stop: 04/09/21 08:59 Last Admin: 03/17/21 08:34 Dose: 150 mg Documented by: Bupropion HCl (Bupropion Hcl 75 Mg Tablet) 75 mg PO BID [facility] Stop: 04/17/21 20:59 Last Admin: 03/21/21 08:36 Dose: 75 mg Documented by: Buspirone HCl (Buspirone 5 Mg Tab) 10 mg PO QAM [facility] Stop: 04/09/21 08:59 Last Admin: 03/21/21 08:35 Dose: 10 mg Documented by: Clonazepam (Clonazepam 1 Mg Tab) 1 mg PO TID PRN PRN Reason: Anxiety Stop: 04/09/21 03:08 Last Admin: 03/16/21 22:11 Dose: 1 mg Documented by: Dextrose (Dextrose 50% 50 Ml Syringe) 25 - 50 ml IV UD PRN; Protocol PRN Reason: Hypoglycemia Protocol Stop: 04/09/21 03:08 Escitalopram Oxalate (Escitalopram Oxalate 10 Mg Tab) 30 mg PO [facility] Stop: 04/09/21 08:59 Last Admin: 03/21/21 08:35 Dose: 30 mg Documented by: Famotidine (F[facility]otidine 40 Mg Tablet) [facility] [place]: 04/09/21 08:59 Last Admin: 03/21/21 08:35 Dose: 40 mg Documented by: Fentanyl Citrate (Fentanyl Bolus From Bag) 50 mcg IV Q60M PRN PRN Reason: Pain or Agitation Stop: 03/31/21 10:47 Last Admin: 03/21/21 04:24 Dose: 50 mcg Documented by: Glucagon (Glucagon For Inj 1 Mg Vial) 1 mg SQ UD PRN; Protocol PRN Reason: Hypoglycemia Protocol Stop: 04/09/21 03:08 Glucose (Glucose 10 Tabs/Tube) 4 - 8 tabs PO UD PRN; Protocol PRN Reason: Hypoglycemia Protocol Stop: 04/09/21 03:08 Glucose (Glucose 40% Gel 15 Gm Tube) 15 - 30 gm PO UD PRN; Protocol PRN Reason: Hypoglycemia Protocol Stop: 04/09/21 03:08 Hydromorphone HCl (Hydromorphone Hcl 2 Mg Tab) 4 mg PO QID PRN PRN Reason: severe headache Stop: 03/24/21 03:17 Hydroxyzine HCl (Hydroxyzine Hcl 25 Mg Tab) 25 mg PO HS [facility] Stop: 04/09/21 04:14 Last Admin: 03/16/21 22:12 Dose: Not Given Documented by: Promethazine HCl 12.5 mg/ (Sodium Chloride) 50.5 mls @ 202 mls/hr IV Q6H PRN PRN Reason: Nausea And Vomiting Stop: 04/09/21 03:08 Last Infusion: 03/11/21 02:02 Dose: Infused Documented by: Furosemide 40 mg/ Syringe 4 mls @ 4 mls/min IV DAILY [facility] Stop: 04/14/21 09:29 Last Admin: 03/21/21 08:34 Dose: 4 mls/min Documented by: Heparin Sodium/Dextrose (Heparin Sodium/Dextrose) 25,000 units in 500 mls @ 43 mls/hr IV .[id number] [facility]; Protocol Stop: 04/16/21 01:59 Last Admin: 03/21/21 14:14 Dose: 2,150 units/hr, 43 mls/hr Documented by: Fentanyl Citrate (Fentanyl Drip) 1,250 mcg in 250 mls @ 50 mls/hr IV .Q5H [facility]; Protocol Stop: 03/31/21 10:59 Last Admin: 03/21/21 12:45 Dose: Not Given Documented by: Norepinephrine Bitartrate (Levophed/D5w) 8 mg in 508 mls @ 24.232 mls/hr IV .[id number] [facility]; Protocol Stop: 04/17/21 06:44 Last Titration: 03/21/21 12:44 Dose: 0.05 mcg/kg/min, 24.2 mls/hr Documented by: Midazolam HCl (Versed) 125 mg in 250 mls @ 10 mls/hr IV .Q25H [facility]; Protocol Stop: 04/20/21 11:29 Last Titration: 03/21/21 13:05 Dose: 5 mg/hr, 10 mls/hr Documented by: Insulin Aspart (Insulin Aspart 100 Units/Ml 3 Ml Pen) 0 units SC Q4 [facility] Stop: 04/17/21 11:59 Last Admin: 03/21/21 12:10 Dose: 2 units Documented by: Insulin Glargine (Insulin Glargine Solostar 100 Units/Ml 3 Ml Pen) 10 units SC DAILY [facility] Stop: 04/19/21 08:59 Last Admin: 03/21/21 09:23 Dose: 10 units Documented by: Meclizine HCl (Meclizine Hcl 25 Mg Tab) 25 mg PO DAILY PRN PRN Reason: Vertigo Stop: 04/09/21 03:18 Midazolam HCl (Midazolam Bolus From Bag) 2 mg IV Q60M PRN PRN Reason: Sedation Stop: 04/20/21 11:16 Miscellaneous (Carbohydrates For Hypoglycemia ) 15 - 30 gm PO UD PRN PRN Reason: Hypoglycemia Protocol Stop: 04/09/21 03:08 Miscellaneous (Icu Electrolyte Replacement Protocol) 1 ea N/A BID@06,18 [facility]; Protocol Stop: 03/24/21 17:59 Last Admin: 03/21/21 08:06 Dose: Not Given Documented by: Miscellaneous Information (Pharmacy Glycemic Mgmt Consult) 1 ea N/A UD PRN PRN Reason: Consult Stop: 04/17/21 09:45 Multi-Ingredient Cream (Artificial Tears Op Oint 3.5 Gm Tube) 1 appln OP Q4H [facility] Stop: 04/19/21 15:29 Last Admin: 03/21/21 11:40 Dose: 1 appln Documented by: Nutritional Formula (Peptamen Intense Vhp 1.0 Donnell 1,000 Ml Bag) 1,000 ml GT CONT [facility]; Protocol Stop: 04/16/21 12:14 Last Admin: 03/20/21 12:56 Dose: 1,000 ml Documented by: Propofol (Propofol Bolus From Bag) 20 mg IV Q5M PRN PRN Reason: Sedation Stop: 03/23/21 13:44 Last Admin: 03/21/21 05:20 Dose: 20 mg Documented by: Sucralfate (Sucralfate 1 Gm Tab) 1 gm PO ACHS [facility] Stop: 04/09/21 07:29 Last Admin: 03/21/21 11:40 Dose: 1 gm Documented by:
[2021-03-21] MEDS: PEPTAMEN INTENSE VHP 1.0 CAL 1,000 ML BAG GT SCH (15:35)
[2021-03-21 23:20] LABS: Partial Thromboplastin Ratio 1.8
[2021-03-21 23:25] LABS: Partial Thromboplastin Time 47.9 Seconds (21.0-31.0)
[2021-03-22] MEDS: ACETAMINOPHEN 325 MG TAB PO PRN (01:47)
[2021-03-22] MEDS: HEPARIN SODIUM/DEXTROSE 25,000 UNITS/500 ML BAG IV SCH ×5 (02:02→22:57)
[2021-03-22] MEDS: fentaNYL DRIP 1,250 MCG/250 ML BAG IV SCH ×5 (02:06→22:57)
[2021-03-22 03:49] LABS: iSTAT Art Bld Gas pCO2 Correct 70 mmHg (35-46); iSTAT Arterial Blood Gas HCO3 41 meg/L (19-24); iSTAT Arterial Blood Gas pCO2 67 mmHg (35-46); iSTAT Arterial Blood Gas pH 7.39 (7.35-7.45); iSTAT Arterial Blood Gas pO2 70 mmHg (80-95); iSTAT Arterial Blood Gas pO2 C 74; iSTAT Carbon Dioxide > 40 mmol/L (24-31); iSTAT FiO2 50 %; iSTAT Hematocrit 32 % (37-47); iSTAT Hemoglobin 10.9 g/dl (12.0-16.0); iSTAT Potassium 3.6 mmol/L (3.3-5.0); iSTAT Site Art Line; iSTAT Sodium 138 mmol/L (135-144)
[2021-03-22] MEDS: INSULIN ASPART 100 UNITS/ML 3 ML PEN SC SCH ×6 (04:23→23:46)
[2021-03-22] MEDS: ARTIFICIAL TEARS OP OINT 3.5 GM TUBE OP SCH ×2 (05:29→08:07)
[2021-03-22 06:39] LABS: Basophils # (auto) 0.01 K/uL (0-0.2); Basophils % (auto) 0.1 %; Eosinophils # (auto) 0.28 K/uL (0-0.5); Eosinophils % (auto) 1.8 %; Hematocrit (blood only) 33.6 % (37-47); Hemoglobin 10.4 g/dL (12.0-16.0); Immature Granulocytes # (auto) 0.12 K/uL (0.00-0.02); Immature Granulocytes % (auto) 0.8 %; Lymphocytes # (auto) 1.19 K/uL (1.2-3.4); Lymphocytes % (auto) 7.5 %; Monocytes # (auto) 0.79 K/uL (0.11-0.59); Neutrophils # (auto) 13.38 K/uL (1.4-6.5); Neutrophils % (auto) 84.8 %; Platelet Count 351 K/uL (130-400); RDW Coefficient of Variation 16.4 % (11.5-14.5); RDW Standard Deviation 49.9 fL (36.4-46.3); White Blood Count 15.77 K/uL (4.8-10.8)
[2021-03-22 07:03] LABS: Partial Thromboplastin Ratio 1.6; Partial Thromboplastin Time 42.5 Seconds (21.0-31.0)
[2021-03-22 07:22] LABS: BUN Creatinine Ratio 35.2 (10-20); Blood Urea Nitrogen 15 mg/dl (7-18); Calcium 8.8 mg/dl (8.5-10.1); Carbon Dioxide 33 mmol/L (21-32); Chloride 99 mmol/L (98-107); Creatinine Clr Calc Pharmacy 249.2 ml/min; Est GFR (African American) > 150.0 ml/min; Est GFR (Non-African American) 130.9 ml/min; Glucose 123 mg/dl (70-99); Magnesium 1.8 mg/dl (1.8-2.4); Potassium 3.4 mmol/L (3.5-5.1); Sodium 136 mmol/L (136-145)
[2021-03-22] MEDS: ICU ELECTROLYTE REPLACEMENT PROTOCOL SCH ×2 (07:26→18:39)
[2021-03-22] MEDS: MIDAZOLAM HCL 125 MG/250 ML BAG IV SCH (07:58)
[2021-03-22] MEDS: NOREPINEPHRINE/D5W 8 MG/508 ML BAG IV SCH ×2 (07:58→21:24)
[2021-03-22] MEDS: INSULIN GLARGINE SOLOSTAR 100 UNITS/ML 3 ML PEN SC SCH (08:00)
[2021-03-22] MEDS: POTASSIUM CHLORIDE / WTR 20 MEQ/100 ML PLCT IV SCH ×4 (08:07→14:20)
--- NOTE | 2021-03-22 08:36 | Critical Care Progress Note ---
Date of Service March 22, 2021 Assessment & Plan (1) Pneumonia due to COVID-19 virus: Plan: Reason Critically Ill: Leigh Carballo is a 35 year old female w/ PMHx of DM, anxiety/depression, rheumatoid arthritis, obesity, distant 2.5 pack yr hx tobacco who presents w/ covid pneumonia and worsened hypoxemic respiratory failure due to pulmonary embolism. She has received almost a full course of tPA. Patient was intubated 03/17/21 for impending resp failure. Neuro - sedation: propofol, fentanyl, nimbex -Discontinue Nimbex 03/21 anxiety/depression: buspar, lexapro, Wellbutrin PO via feeding tube. hold home Vistaril Cardiac - bradycardia: Asymptomatic. Respiratory - Covid pneumonia Continue dexamethasone, lasix. Stopped baricitinib acute hypoxic resp failure 2/2 covid and pulmonary embolism per CTA: Status post 100 mg TPA -Repeat imaging demonstrates no central pulmonary embolism GI - NPO. Trickle tube feeds. Glycemic consult placed. GI PPx: pepcid 40 IV qam. RENAL/LYTES - No significant electrolyte derangement Replace lytes as needed. - [place]. Strict Is/Os. ENDO - DM2: SSI and low dose lantus. ICU hyperglycemia protocol. No hx of thyroid disease HEME - Stable H&H. Monitor. -Continue heparin infusion ID - Afebrile covid: see above. LINES/IV ACCESS - PIVs intact. + LIJ central venous catheter. DVT PROPHYLAXIS - SCDs. Heparin drip, therapeutic code: full dispo: continue ICU status. Continue mechanical ventilation, day 6. Discussed w/ Chey and Roge regarding eval for ecmo: Not a candidate (2) Diabetes: (3) Morbid obesity: (4) Hypertension: (5) Pulmonary embolism: Admission and Anticipated Discharge Date Admission Date: March 10, 2021 Supervising Physician Co-Signing Physician Notes Patient remains critically ill. Subjective No overnight events tolerated being off neuromuscular blockade Physical Exam Physical Exam: General: GCS 3 T Skin: Warm, dry, Head: Atraumatic Ears, nose, mouth and throat: airway obscured by endotracheal tube Cardiovascular: Normal peripheral perfusion Respiratory: Ventilator settings reviewed Gastrointestinal: Non distended Musculoskeletal: No deformity Results & Data Results & Data ([facility]) Vital Signs (Past 12 Hours) Vital Signs Temp Pulse Resp BP Pulse Ox 03/22/21 07:40 64 24 93 03/22/21 05:15 38.0 C H 66 125/66 03/22/21 05:00 38.0 C H 62 128/68 03/22/21 04:45 38.0 C H 63 123/68 03/22/21 04:30 38.0 C H 65 120/68 03/22/21 04:15 37.9 C H 62 123/67 03/22/21 04:00 37.9 C H 64 128/66 03/22/21 03:45 37.9 C H 63 129/68 03/22/21 03:30 37.9 C H 64 129/69 03/22/21 03:15 37.9 C H 62 119/73 03/22/21 03:00 37.9 C H 62 24 124/64 90 03/22/21 02:45 37.9 C H 63 118/67 03/22/21 02:30 37.9 C H 64 128/69 89 L 03/22/21 02:15 37.9 C H 65 03/22/21 02:00 37.8 C H 66 128/66 03/22/21 01:45 37.8 C H 63 126/73 03/22/21 01:30 37.8 C H 62 126/71 92 03/22/21 01:15 37.8 C H 63 125/71 89 L 03/22/21 01:00 37.7 C H 62 123/72 89 L 03/22/21 00:45 37.7 C H 63 126/73 89 L 03/22/21 00:30 37.7 C H 64 129/73 90 03/22/21 00:15 37.7 C H 63 87 L 03/22/21 00:00 37.7 C H 62 90 03/21/21 23:45 37.7 C H 62 90 03/21/21 23:30 37.7 C H 60 90 03/21/21 23:22 62 23 90 03/21/21 23:15 37.7 C H 59 L 94 03/21/21 23:00 37.7 C H 63 94 03/21/21 22:45 37.7 C H 67 94 03/21/21 22:30 37.7 C H 66 94 10/09/21 22:15 37.7 C H 67 93 03/21/21 22:00 37.8 C H 67 93 03/21/21 21:45 37.8 C H 67 93 03/21/21 21:30 37.8 C H 63 91 03/21/21 21:15 37.7 C H 61 93 03/21/21 21:00 37.8 C H 61 91 03/21/21 20:45 37.8 C H 62 87 L Laboratory Results 03/22/21 03/22/21 03/22/21 Range/Units 07:36 06:14 06:13 WBC (4.8-10.8) K/uL RBC (4.2-5.4) M/uL Hgb (12.0-16.0) g/dL POC Hgb (12.0-16.0) g/dl Hct (37-47) % POC Hct (37-47) % MCV (80-100) fL MCH (25-34) pg MCHC (32-36) g/dL RDW Std Deviation (36.4-46.3) fL RDW Coeff of Lucie (11.5-14.5) % Plt Count (130-400) K/uL MPV (7.4-10.4) fL Immature Gran % (Auto) % Neut % (Auto) % Lymph % (Auto) % Sutter % (Auto) % Eos % (Auto) % Baso % (Auto) % Neut # (Auto) (1.4-6.5) K/uL Lymph # (Auto) (1.2-3.4) K/uL Sutter # (Auto) (0.11-0.59) K/uL Eos # (Auto) (0-0.5) K/uL Baso # (Auto) (0-0.2) K/uL Immature Gran # (Auto) (0.00-0.02) K/uL APTT (21.0-31.0) Seconds PTT Ratio Sample Site POC pH (7.35-7.45) POC pCO2 (35-46) mmHg POC pO2 (80-95) mmHg POC HCO3 (19-24) eleonora/L POC Total CO2 (24-31) mmol/L POC Base Excess (-9-1.8) eleonora/L ABG pH (Temp Correct) (7.35-7.45) ABG pCO2 (Temp Corrct (35-46) mmHg POC ABG pO2 at Pt Temp POC ABG O2 Sat (90-95) % Howard Test O2 Delivery Device POC O2 Rate Minute Ventilation POC FiO2 % Tidal Volume PEEP POC Sodium (135-144) mmol/L Sodium 136 (136-145) mmol/L POC Potassium (3.3-5.0) mmol/L Potassium 3.4 L (3.5-5.1) mmol/L Chloride 99 (98-107) mmol/L Carbon Dioxide 33 H (21-32) mmol/L Anion Gap 4.0 (3-11) BUN 15 (7-18) mg/dl Creatinine 0.43 L (0.6-1.2) mg/dl Est Cr Clr Drug Dosing 249.2 ml/min Est GFR ( Amer) > 150.0 ml/min Est GFR (Non-Af Amer) 130.9 ml/min BUN/Creatinine Ratio 35.2 H (10-20) Glucose 123 H (70-99) mg/dl POC Glucose 111 H (70-99) mg/dl Calcium 8.8 (8.5-10.1) mg/dl Phosphorus 3.0 (2.5-4.9) mg/dl Magnesium 1.8 (1.8-2.4) mg/dl Procalcitonin Pending 03/22/21 03/22/21 03/22/21 Range/Units 06:13 06:13 04:21 WBC 15.77 H (4.8-10.8) K/uL RBC 4.00 L (4.2-5.4) M/uL Hgb 10.4 L (12.0-16.0) g/dL POC Hgb (12.0-16.0) g/dl Hct 33.6 L (37-47) % POC Hct (37-47) % MCV 84.0 (80-100) fL MCH 26.0 (25-34) pg MCHC 31.0 L (32-36) g/dL RDW Std Deviation 49.9 H (36.4-46.3) fL RDW Coeff of Lucie 16.4 H (11.5-14.5) % Plt Count 351 (130-400) K/uL MPV 9.0 (7.4-10.4) fL Immature Gran % (Auto) 0.8 % Neut % (Auto) 84.8 % Lymph % (Auto) 7.5 % Sutter % (Auto) 5.0 % Eos % (Auto) 1.8 % Baso % (Auto) 0.1 % Neut # (Auto) 13.38 H (1.4-6.5) K/uL Lymph # (Auto) 1.19 L (1.2-3.4) K/uL Sutter # (Auto) 0.79 H (0.11-0.59) K/uL Eos # (Auto) 0.28 (0-0.5) K/uL Baso # (Auto) 0.01 (0-0.2) K/uL Immature Gran # (Auto) 0.12 H (0.00-0.02) K/uL APTT 42.5 H (21.0-31.0) Seconds PTT Ratio 1.6 Sample Site POC pH (7.35-7.45) POC pCO2 (35-46) mmHg POC pO2 (80-95) mmHg POC HCO3 (19-24) eleonora/L POC Total CO2 (24-31) mmol/L POC Base Excess (-9-1.8) eleonora/L ABG pH (Temp Correct) (7.35-7.45) ABG pCO2 (Temp Corrct (35-46) mmHg POC ABG pO2 at Pt Temp POC ABG O2 Sat (90-95) % Howard Test O2 Delivery Device POC O2 Rate Minute Ventilation POC FiO2 % Tidal Volume PEEP POC Sodium (135-144) mmol/L Sodium (136-145) mmol/L POC Potassium (3.3-5.0) mmol/L Potassium (3.5-5.1) mmol/L Chloride (98-107) mmol/L Carbon Dioxide (21-32) mmol/L Anion Gap (3-11) BUN (7-18) mg/dl Creatinine (0.6-1.2) mg/dl Est Cr Clr Drug Dosing ml/min Est GFR ( Amer) ml/min Est GFR (Non-Af Amer) ml/min BUN/Creatinine Ratio (10-20) Glucose (70-99) mg/dl POC Glucose 122 H (70-99) mg/dl Calcium (8.5-10.1) mg/dl Phosphorus (2.5-4.9) mg/dl Magnesium (1.8-2.4) mg/dl Procalcitonin 03/22/21 03/21/21 03/21/21 Range/Units 03:17 23:56 22:38 WBC (4.8-10.8) K/uL RBC (4.2-5.4) M/uL Hgb (12.0-16.0) g/dL POC Hgb 10.9 L (12.0-16.0) g/dl Hct (37-47) % POC Hct 32 L (37-47) % MCV (80-100) fL MCH (25-34) pg MCHC (32-36) g/dL RDW Std Deviation (36.4-46.3) fL RDW Coeff of Lucie (11.5-14.5) % Plt Count (130-400) K/uL MPV (7.4-10.4) fL Immature Gran % (Auto) % Neut % (Auto) % Lymph % (Auto) % Sutter % (Auto) % Eos % (Auto) % Baso % (Auto) % Neut # (Auto) (1.4-6.5) K/uL Lymph # (Auto) (1.2-3.4) K/uL Sutter # (Auto) (0.11-0.59) K/uL Eos # (Auto) (0-0.5) K/uL Baso # (Auto) (0-0.2) K/uL Immature Gran # (Auto) (0.00-0.02) K/uL APTT 47.9 H* (21.0-31.0) Seconds PTT Ratio 1.8 Sample Site Art Line POC pH 7.39 (7.35-7.45) POC pCO2 67 H (35-46) mmHg POC pO2 70 L (80-95) mmHg POC HCO3 41 H (19-24) eleonora/L POC Total CO2 > 40 H* (24-31) mmol/L POC Base Excess 16.0 H (-9-1.8) eleonora/L ABG pH (Temp Correct) 7.380 (7.35-7.45) ABG pCO2 (Temp Corrct 70 H (35-46) mmHg POC ABG pO2 at Pt Temp 74 POC ABG O2 Sat 93.0 (90-95) % Howard Test NA O2 Delivery Device Ventilator POC O2 Rate 22 Minute Ventilation 6.6 POC FiO2 50 % Tidal Volume 300 PEEP 18 POC Sodium 138 (135-144) mmol/L Sodium (136-145) mmol/L POC Potassium 3.6 (3.3-5.0) mmol/L Potassium (3.5-5.1) mmol/L Chloride (98-107) mmol/L Carbon Dioxide (21-32) mmol/L Anion Gap (3-11) BUN (7-18) mg/dl Creatinine (0.6-1.2) mg/dl Est Cr Clr Drug Dosing ml/min Est GFR ( Amer) ml/min Est GFR (Non-Af Amer) ml/min BUN/Creatinine Ratio (10-20) Glucose (70-99) mg/dl POC Glucose 138 H (70-99) mg/dl Calcium (8.5-10.1) mg/dl Phosphorus (2.5-4.9) mg/dl Magnesium (1.8-2.4) mg/dl Procalcitonin 03/21/21 03/21/21 03/21/21 Range/Units 20:06 15:34 13:55 WBC (4.8-10.8) K/uL RBC (4.2-5.4) M/uL Hgb (12.0-16.0) g/dL POC Hgb (12.0-16.0) g/dl Hct (37-47) % POC Hct (37-47) % MCV (80-100) fL MCH (25-34) pg MCHC (32-36) g/dL RDW Std Deviation (36.4-46.3) fL RDW Coeff of Lucie (11.5-14.5) % Plt Count (130-400) K/uL MPV (7.4-10.4) fL Immature Gran % (Auto) % Neut % (Auto) % Lymph % (Auto) % Sutter % (Auto) % Eos % (Auto) % Baso % (Auto) % Neut # (Auto) (1.4-6.5) K/uL Lymph # (Auto) (1.2-3.4) K/uL Sutter # (Auto) (0.11-0.59) K/uL Eos # (Auto) (0-0.5) K/uL Baso # (Auto) (0-0.2) K/uL Immature Gran # (Auto) (0.00-0.02) K/uL APTT 42.6 H (21.0-31.0) Seconds PTT Ratio 1.6 Sample Site POC pH (7.35-7.45) POC pCO2 (35-46) mmHg POC pO2 (80-95) mmHg POC HCO3 (19-24) eleonora/L POC Total CO2 (24-31) mmol/L POC Base Excess (-9-1.8) eleonora/L ABG pH (Temp Correct) (7.35-7.45) ABG pCO2 (Temp Corrct (35-46) mmHg POC ABG pO2 at Pt Temp POC ABG O2 Sat (90-95) % Howard Test O2 Delivery Device POC O2 Rate Minute Ventilation POC FiO2 % Tidal Volume PEEP POC Sodium (135-144) mmol/L Sodium (136-145) mmol/L POC Potassium (3.3-5.0) mmol/L Potassium (3.5-5.1) mmol/L Chloride (98-107) mmol/L Carbon Dioxide (21-32) mmol/L Anion Gap (3-11) BUN (7-18) mg/dl Creatinine (0.6-1.2) mg/dl Est Cr Clr Drug Dosing ml/min Est GFR ( Amer) ml/min Est GFR (Non-Af Amer) ml/min BUN/Creatinine Ratio (10-20) Glucose (70-99) mg/dl POC Glucose 121 H 147 H (70-99) mg/dl Calcium (8.5-10.1) mg/dl Phosphorus (2.5-4.9) mg/dl Magnesium (1.8-2.4) mg/dl Procalcitonin 03/21/21 Range/Units 12:02 WBC (4.8-10.8) K/uL RBC (4.2-5.4) M/uL Hgb (12.0-16.0) g/dL POC Hgb (12.0-16.0) g/dl Hct (37-47) % POC Hct (37-47) % MCV (80-100) fL MCH (25-34) pg MCHC (32-36) g/dL RDW Std Deviation (36.4-46.3) fL RDW Coeff of Lucie (11.5-14.5) % Plt Count (130-400) K/uL MPV (7.4-10.4) fL Immature Gran % (Auto) % Neut % (Auto) % Lymph % (Auto) % Sutter % (Auto) % Eos % (Auto) % Baso % (Auto) % Neut # (Auto) (1.4-6.5) K/uL Lymph # (Auto) (1.2-3.4) K/uL Sutter # (Auto) (0.11-0.59) K/uL Eos # (Auto) (0-0.5) K/uL Baso # (Auto) (0-0.2) K/uL Immature Gran # (Auto) (0.00-0.02) K/uL APTT (21.0-31.0) Seconds PTT Ratio Sample Site POC pH (7.35-7.45) POC pCO2 (35-46) mmHg POC pO2 (80-95) mmHg POC HCO3 (19-24) eleonora/L POC Total CO2 (24-31) mmol/L POC Base Excess (-9-1.8) eleonora/L ABG pH (Temp Correct) (7.35-7.45) ABG pCO2 (Temp Corrct (35-46) mmHg POC ABG pO2 at Pt Temp POC ABG O2 Sat (90-95) % Howard Test O2 Delivery Device POC O2 Rate Minute Ventilation POC FiO2 % Tidal Volume PEEP POC Sodium (135-144) mmol/L Sodium (136-145) mmol/L POC Potassium (3.3-5.0) mmol/L Potassium (3.5-5.1) mmol/L Chloride (98-107) mmol/L Carbon Dioxide (21-32) mmol/L Anion Gap (3-11) BUN (7-18) mg/dl Creatinine (0.6-1.2) mg/dl Est Cr Clr Drug Dosing ml/min Est GFR ( Amer) ml/min Est GFR (Non-Af Amer) ml/min BUN/Creatinine Ratio (10-20) Glucose (70-99) mg/dl POC Glucose 144 H (70-99) mg/dl Calcium (8.5-10.1) mg/dl Phosphorus (2.5-4.9) mg/dl Magnesium (1.8-2.4) mg/dl Procalcitonin Coding Level of Care Code Critical Care 1st 30-74 mins Diagnoses Pneumonia due to COVID-19 virus U07.1; J12.82 Diabetes E11.9 Morbid obesity E66.01 Hypertension I10 Pulmonary embolism I26.99 Time Spent (min) 45
[2021-03-22] MEDS: MAGNESIUM SULFATE / D5W 1 GM/100 ML BAG IV SCH ×4 (08:45→21:47)
[2021-03-22] MEDS: SUCRALFATE 1 GM TAB PO SCH ×4 (09:06→21:51)
[2021-03-22] MEDS: ESCITALOPRAM OXALATE 10 MG TAB PO SCH (09:06)
[2021-03-22] MEDS: buPROPion HCl 75 MG TABLET PO SCH ×2 (09:06→21:51)
[2021-03-22] MEDS: FAMOTIDINE 40 MG TABLET PO SCH (09:06)
[2021-03-22] MEDS: busPIRone 5 MG TAB PO SCH (09:06)
[2021-03-22] MEDS: FUROSEMIDE 40 MG in SYRINGE 0 ML IV SCH (09:06)
--- NOTE | 2021-03-22 09:40 | Electrocardiogram Report ---
Test Reason : Blood Pressure : / mmHG Vent. Rate : 067 BPM Atrial Rate : 067 BPM P-R Int : 126 ms QRS Dur : 090 ms QT Int : 410 ms P-R-T Axes : 045 038 009 degrees QTc Int : 433 ms Normal sinus rhythm Nonspecific T wave abnormality Abnormal ECG When compared with ECG of 09-MAR-2021 21:25, No significant change was found Confirmed by Goldy Jett ([id number]) on 03/22/2021 9:40:27 AM Referred By: REFERRED SELF Confirmed By:Goldy Jett
[2021-03-22] MEDS: PEPTAMEN INTENSE VHP 1.0 CAL 1,000 ML BAG GT SCH (12:02)
--- NOTE | 2021-03-22 12:07 | Pharmacy Report ---
Pharmacy Glycemic Short Note 2 - Date of Service March 22, 2021 - Glycemic Short BSG Results (Last 24 hours): 03/21/21 03/21/21 03/21/21 12:02 15:34 20:06 Glucose POC Glucose 144 H 147 H 121 H 03/21/21 03/22/21 03/22/21 23:56 04:21 06:13 Glucose 123 H POC Glucose 138 H 122 H 03/22/21 03/22/21 07:36 11:47 Glucose POC Glucose 111 H 135 H OUTPATIENT ANTIDIABETIC REGIMEN: * none * A1c = 6.6% 03/18/21 ASSESSMENT: 03/22 * Pt has received 16 units of insulin over the past 24hrs * 10 units of basal with Lantus * 6 units of bolus with NovoLog * BSGs [id number] mg/dl * All BSGs in goal range with current orders. * Trickle feeds continue; have been on and off but CHO coverage just held accordingly. * No changes needed today. 03/20: * Patient well controlled over the past 24 hours. * Dexamethasone course completed yesterday and thus last dose of NPH administered yesterday morning. * Will increase lantus dose today, but loosen NovoLog scale. Trophic enteral feeds remain. Patient also continues on heparin, which is providing some continuous dextrose as well. 03/18 * Patient w/ h/o "pre-diabetes" admitted for COVID19 viral pneumonia. Latest A1 c more consistent w/ dx of DM. * Currently intubated, sedated, receiving paralytics and IV steroids. * Today is day 9 of dexamethasone IV, currently receiving 10mg IV daily in the AM. Tomorrow appears to be the final day of therapy if not reordered * "Tickle" tube feeds have also been running * Pt did become hyperglycemic mid-day yesterday, coinciding w/ IV dexamethasone administration. * Will escalate Novolog correctional / prandial doses and NPH to combat rise in BSGs following AM dexamethasone admin. PLAN FOR INPATIENT GLYCEMIC CONTROL: * Basal insulin * Lantus 10 units SQ QAM * Bolus insulin (decreased) * NovoLog per scale Q 4 hrs * Goal Range: Low 110 mg/dL - High 140 mg/dL * Correction Factor: 20 mg/dL/unit * Nutritional / Prandial insulin per carb ratio of 1 unit per 6 grams CHO consumed via continuous tube feedings PLAN FOR DISCHARGE: * Would recommend diet/lifestyle modifications on discharge. One could consider the addition of metformin in the near future if no contraindications present.
[2021-03-22 13:15] LABS: Partial Thromboplastin Ratio 1.8
[2021-03-22 13:40] LABS: Partial Thromboplastin Time 48.1 Seconds (21.0-31.0)
--- NOTE | 2021-03-22 14:14 | Hospitalist Progress Note ---
Date of Service March 22, 2021 Assessment & Plan (1) Acute hypoxemic respiratory failure: Plan: Extensive right-sided pulmonary embolism. CTA did show extensive right-sided pulmonary embolism no echocardiogram was available to assess RV strain The case discussed with truck bench mechanic in [place] Dr. Jacques and was not advised for any TPN given the hemodynamic stability and the patient has been under waiting list as there is no bed in ICU The case was discussed with truck bench mechanic Dr. Resendiz in [facility] and also Dr. Souza the glass cutting machine feeder who decided to go ahead and give TPA for this patient and heparin. The patient received TPA and followed by intravenous heparin. Status post intubation on 03/17/2021 and remains sedated The condition has been deteriorating Repeat CAT scan did not show any massive embolism but showed continued progressive pneumonia secondary to COVID-19 infection The truck bench mechanic has been trying to get her into ECMO therapy at [facility]-ECMO therapy is denied Remains stable and has been requiring FiO2 of 0.7 to maintain saturation Stable on mechanical vent and sedation Secondary to severe COVID-19 pneumonia Did not receive any vaccination for COVID-19 Continue with dexamethasone on admission and finished course of remdesivir. Appreciate pulmonary input and recommendation. Baricitinib has been stopped. C/w decadron and lasix. 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 Admission and Anticipated Discharge Date Admission Date: March 10, 2021 Subjective 03/11/2021 The patient was seen and examined in medical telemetry unit She has been requiring high flow oxygen to maintain saturation and received remdesivir yesterday Feels shortness of breath with minimal exertion but better at rest 03/12/2029 The patient was seen and examined in medical telemetry unit She has been requiring more oxygen to maintain saturation She is complying with prone positioning 03/13/2021 The patient was seen and examined in medical telemetry unit and in the Covid room Her condition has not improved and is still requiring 40 L of oxygen with 100% FiO2 to maintain saturation 03/14/2021 The patient was seen and examined in medical telemetry unit and in the Covid room She has been getting any better and requiring high flow oxygen to maintain saturation We will sought advice from glass cutting machine feeder 03/15/2021 The patient was seen and examined in telemetry unit in Covid room She remains stable and is still requiring 4 L of oxygen to maintain saturation Clinically she feels a little bit better 03/16/2021 The patient was seen and examined in telemetry unit and in the Covid room She remains stable and has been requiring 40 L of oxygen with 100% FiO2 to maintain saturation As her condition has not been improving for the last 2 or 3 days CTA was ordered to rule out pulmonary embolism She did not have any chest pain, cough or hemoptysis 03/17/2021 The patient was seen and examined in telemetry unit and in the Covid room She is being intubated this morning 03/20/2021 The patient was seen and examined in telemetry unit and in the Covid room She remains intubated and the condition has not been getting any better The truck bench mechanic is trying to get her into ECMO therapy in [place] 03/21/2021 The patient was seen and examined in telemetry unit and in the Covid room She remains sedated and intubated 03/22/2021 The patient was seen and examined in telemetry unit She remains intubated and sedated and no significant events happened last night Review of Systems Review of Systems: Unobtainable due to endotracheal tube Physical Exam Physical Exam: Remains sedated on ventilator Constitutional: well developed, well nourished, + ill appearing and + obese Eyes: PERRL, conjunctivae normal, anicteric sclerae ENMT: external ear and nose normal, oropharynx normal Neck: trachea midline, no thyromegaly Respiratory: + respiratory distress Auscultation: + diminished lung sounds and + crackles (At the bases) Cardiovascular: Rate/Rhythm: regular rate and regular rhythm; not tachycardic Heart Sounds: normal S1 and normal S2; no murmur Extremities: + edema (Trace edema bilaterally) Gastrointestinal (Abdomen): Inspection/Auscultation: normal bowel sounds; abdomen not distended Percussion/Palpation: abdomen soft; abdomen nontender Musculoskeletal: No acute arthritis in any joint Neurologic: Intubated and sedated Lymphatic: no cervical or axillary lymphadenopathy Results & Data Results & Data ([facility]) Vital Signs (Past 12 Hours) Vital Signs Temp Pulse Resp BP Pulse Ox 03/22/21 13:30 37.8 C H 72 91 03/22/21 13:15 37.7 C H 68 91 03/22/21 13:00 37.7 C H 69 91 03/22/21 12:45 37.8 C H 70 92 03/22/21 12:30 37.8 C H 68 94 03/22/21 12:15 37.8 C H 70 117/65 94 03/22/21 12:00 37.8 C H 71 93 03/22/21 11:45 37.9 C H 71 86 L 03/22/21 11:30 37.8 C H 77 92 03/22/21 11:22 75 25 H 92 03/22/21 11:15 37.9 C H 72 121/64 93 03/22/21 11:00 37.9 C H 74 91 03/22/21 10:45 37.9 C H 73 91 03/22/21 10:30 37.9 C H 73 93 03/22/21 10:15 37.9 C H 72 123/71 93 03/22/21 10:00 37.9 C H 72 92 03/22/21 09:45 37.8 C H 68 93 03/22/21 09:30 37.8 C H 71 93 03/22/21 09:15 37.8 C H 67 128/66 93 03/22/21 09:00 37.9 C H 67 129/66 93 03/22/21 08:45 37.9 C H 68 92 03/22/21 08:30 38.0 C H 69 123/68 92 03/22/21 08:15 38.0 C H 71 91 03/22/21 08:00 38.0 C H 70 92 03/22/21 07:45 37.9 C H 70 96 03/22/21 07:40 64 24 93 03/22/21 07:30 37.9 C H 66 03/22/21 07:15 37.9 C H 65 03/22/21 07:00 37.9 C H 68 120/64 86 L 03/22/21 06:45 37.9 C H 66 03/22/21 06:30 37.9 C H 65 03/22/21 06:15 37.9 C H 65 03/22/21 06:00 37.9 C H 65 03/22/21 05:45 37.9 C H 65 03/22/21 05:30 38.0 C H 65 03/22/21 05:15 38.0 C H 66 125/66 03/22/21 05:00 38.0 C H 62 128/68 03/22/21 04:45 38.0 C H 63 123/68 03/22/21 04:30 38.0 C H 65 120/68 03/22/21 04:15 37.9 C H 62 123/67 03/22/21 04:00 37.9 C H 64 128/66 03/22/21 03:45 37.9 C H 63 129/68 03/22/21 03:30 37.9 C H 64 129/69 03/22/21 03:15 37.9 C H 62 119/73 03/22/21 03:00 37.9 C H 62 24 124/64 90 03/22/21 02:45 37.9 C H 63 118/67 03/22/21 02:30 37.9 C H 64 128/69 89 L 03/22/21 02:15 37.9 C H 65 Laboratory Results Short CBC 03/22/21 Range/Units 06:13 WBC 15.77 H (4.8-10.8) K/uL Hgb 10.4 L (12.0-16.0) g/dL Hct 33.6 L (37-47) % Plt Count 351 (130-400) K/uL BMP 03/22/21 06:13 Sodium 136 Potassium 3.4 L Chloride 99 Carbon Dioxide 33 H BUN 15 Creatinine 0.43 L Glucose 123 H Calcium 8.8 Medications Administered Current Inpatient Medications Acetaminophen (Acetaminophen 325 Mg Tab) 650 mg PO Q4H PRN PRN Reason: Pain or Fever Stop: 04/09/21 03:08 Last Admin: 03/22/21 01:47 Dose: 650 mg Documented by: Albuterol (Albuterol Hfa 8 Gm Inhaler) 2 puffs INH Q2R PRN PRN Reason: sob/wheeze Stop: 04/10/21 00:12 Bupropion HCl (Bupropion Xl 150 Mg Tabcr) 150 mg PO QAM [facility] Stop: 04/09/21 08:59 Last Admin: 03/17/21 08:34 Dose: 150 mg Documented by: Bupropion HCl (Bupropion Hcl 75 Mg Tablet) 75 mg PO BID [facility] Stop: 04/17/21 20:59 Last Admin: 03/22/21 09:06 Dose: 75 mg Documented by: Buspirone HCl (Buspirone 5 Mg Tab) 10 mg PO QAM [facility] Stop: 04/09/21 08:59 Last Admin: 03/22/21 09:06 Dose: 10 mg Documented by: Clonazepam (Clonazepam 1 Mg Tab) 1 mg PO TID PRN PRN Reason: Anxiety Stop: 04/09/21 03:08 Last Admin: 03/16/21 22:11 Dose: 1 mg Documented by: Dextrose (Dextrose 50% 50 Ml Syringe) 25 - 50 ml IV UD PRN; Protocol PRN Reason: Hypoglycemia Protocol Stop: 04/09/21 03:08 Escitalopram Oxalate (Escitalopram Oxalate 10 Mg Tab) 30 mg PO QAM [facility] Stop: 04/09/21 08:59 Last Admin: 03/22/21 09:06 Dose: 30 mg Documented by: Famotidine (Famotidine 40 Mg Tablet) 40 mg PO QAM [facility] Stop: 04/09/21 08:59 Last Admin: 03/22/21 09:06 Dose: 40 mg Documented by: Fentanyl Citrate (Fentanyl Bolus From Bag) 50 mcg IV Q60M PRN PRN Reason: Pain or Agitation Stop: 03/31/21 10:47 Last Admin: 03/21/21 04:24 Dose: 50 mcg Documented by: Glucagon (Glucagon For Inj 1 Mg Vial) 1 mg SQ UD PRN; Protocol PRN Reason: Hypoglycemia Protocol Stop: 04/09/21 03:08 Glucose (Glucose 10 Tabs/Tube) 4 - 8 tabs PO UD PRN; Protocol PRN Reason: Hypoglycemia Protocol Stop: 04/09/21 03:08 Glucose (Glucose 40% Gel 15 Gm Tube) 15 - 30 gm PO UD PRN; Protocol PRN Reason: Hypoglycemia Protocol Stop: 04/09/21 03:08 Hydromorphone HCl (Hydromorphone Hcl 2 Mg Tab) 4 mg PO QID PRN PRN Reason: severe headache Stop: 03/24/21 03:17 Hydroxyzine HCl (Hydroxyzine Hcl 25 Mg Tab) 25 mg PO HS [facility] Stop: 04/09/21 04:14 Last Admin: 03/16/21 22:12 Dose: Not Given Documented by: Furosemide 40 mg/ Syringe 4 mls @ 4 mls/min IV DAILY [facility] Stop: 04/14/21 09:29 Last Admin: 03/22/21 09:06 Dose: 4 mls/min Documented by: Heparin Sodium/Dextrose (Heparin Sodium/Dextrose) 25,000 units in 500 mls @ 47 mls/hr IV .[id number] [facility]; Protocol Stop: 04/16/21 01:59 Last Admin: 03/22/21 12:59 Dose: Not Given Documented by: Fentanyl Citrate (Fentanyl Drip) 1,250 mcg in 250 mls @ 50 mls/hr IV .Q5H [facility]; Protocol Stop: 03/31/21 10:59 Last Admin: 03/22/21 12:58 Dose: 250 mcg/hr, 50 mls/hr Documented by: Norepinephrine Bitartrate (Levophed/D5w) 8 mg in 508 mls @ 19.385 mls/hr IV .Q24H [facility]; Protocol Stop: 04/17/21 06:44 Last Admin: 03/22/21 07:58 Dose: 0.04 mcg/kg/min, 19.4 mls/hr Documented by: Midazolam HCl (Versed) 125 mg in 250 mls @ 10 mls/hr IV .Q25H [facility]; Protocol Stop: 04/20/21 11:29 Last Admin: 03/22/21 07:58 Dose: 5 mg/hr, 10 mls/hr Documented by: Potassium Chloride (K Chi / Wtr) 20 meq in 100 mls @ 50 mls/hr IV Q2H [facility] Stop: 03/22/21 15:59 Last Admin: 03/22/21 11:45 Dose: 50 mls/hr Documented by: Insulin Aspart (Insulin Aspart 100 Units/Ml 3 Ml Pen) 0 units SC Q4 [facility] Stop: 04/17/21 11:59 Last Admin: 03/22/21 12:09 Dose: 1 units Documented by: Insulin Glargine (Insulin Glargine Solostar 100 Units/Ml 3 Ml Pen) 10 units SC DAILY [facility] Stop: 04/19/21 08:59 Last Admin: 03/22/21 08:00 Dose: 10 units Documented by: Meclizine HCl (Meclizine Hcl 25 Mg Tab) 25 mg PO DAILY PRN PRN Reason: Vertigo Stop: 04/09/21 03:18 Midazolam HCl (Midazolam Bolus From Bag) 2 mg IV Q60M PRN PRN Reason: Sedation Stop: 04/20/21 11:16 Miscellaneous (Carbohydrates For Hypoglycemia ) 15 - 30 gm PO UD PRN PRN Reason: Hypoglycemia Protocol Stop: 04/09/21 03:08 Miscellaneous (Icu Electrolyte Replacement Protocol) 1 ea N/A BID@06,18 [facility]; Protocol Stop: 03/24/21 17:59 Last Admin: 03/22/21 07:26 Dose: 1 ea Documented by: Miscellaneous Information (Pharmacy Glycemic Mgmt Consult) 1 ea N/A UD PRN PRN Reason: Consult Stop: 04/17/21 09:45 Nutritional Formula (Peptamen Intense Vhp 1.0 Donnell 1,000 Ml Bag) 1,000 ml GT CONT [facility]; Protocol Stop: 04/16/21 12:14 Last Admin: 03/22/21 12:02 Dose: 1,000 ml Documented by: Sucralfate (Sucralfate 1 Gm Tab) 1 gm PO ACHS [facility] Stop: 04/09/21 07:29 Last Admin: 03/22/21 12:07 Dose: 1 gm Documented by:
[2021-03-22 18:21] LABS: Calcium 8.8 mg/dl (8.5-10.1); Creatinine Clr Calc Pharmacy 210.1 ml/min; Est GFR (African American) 143.4 ml/min; Est GFR (Non-African American) 123.7 ml/min; Potassium 4.1 mmol/L (3.5-5.1)
[2021-03-22] MEDS ORDERED: bisacodyL 10 MG SUPP PR STA (22:39)
[2021-03-23] MEDS: fentaNYL DRIP 1,250 MCG/250 ML BAG IV SCH ×4 (00:10→06:26)
[2021-03-23] MEDS ORDERED: STAT IV Infusion **Titration per Protocol STA (04:03)
[2021-03-23 04:58] LABS: iSTAT Allen Test Pass; iSTAT Art Bld Gas pCO2 Correct 78 mmHg (35-46); iSTAT Art Bld Gas pH Corrected 7.331 (7.35-7.45); iSTAT Arterial Blood Gas HCO3 41 meg/L (19-24); iSTAT Arterial Blood Gas pCO2 75 mmHg (35-46); iSTAT Arterial Blood Gas pH 7.34 (7.35-7.45); iSTAT Arterial Blood Gas pO2 64 mmHg (80-95); iSTAT Arterial Blood Gas pO2 C 68; iSTAT Carbon Dioxide > 40 mmol/L (24-31); iSTAT FiO2 60 %; iSTAT Hematocrit 30 % (37-47); iSTAT Hemoglobin 10.2 g/dl (12.0-16.0); iSTAT Potassium 3.6 mmol/L (3.3-5.0); iSTAT Site R Radial; iSTAT Sodium 135 mmol/L (135-144)
[2021-03-23] MEDS: INSULIN ASPART 100 UNITS/ML 3 ML PEN SC SCH ×5 (05:22→20:29)
[2021-03-23] MEDS: fentaNYL citrate 2,500 MCG/250 ML BAG IV SCH ×2 (06:18→21:41)
[2021-03-23 06:35] LABS: Basophils # (auto) 0.01 K/uL (0-0.2); Basophils % (auto) 0.1 %; Eosinophils # (auto) 0.09 K/uL (0-0.5); Eosinophils % (auto) 0.8 %; Hematocrit (blood only) 30.5 % (37-47); Hemoglobin 9.3 g/dL (12.0-16.0); Immature Granulocytes # (auto) 0.08 K/uL (0.00-0.02); Immature Granulocytes % (auto) 0.7 %; Lymphocytes # (auto) 0.93 K/uL (1.2-3.4); Lymphocytes % (auto) 7.9 %; Mean Corpuscular Hemoglobin 25.6 pg (25-34); Mean Corpuscular Hgb Conc 30.5 g/dL (32-36); Mean Platelet Volume 9.1 fL (7.4-10.4); Monocytes # (auto) 0.71 K/uL (0.11-0.59); Neutrophils # (auto) 10.01 K/uL (1.4-6.5); Neutrophils % (auto) 84.5 %; Platelet Count 311 K/uL (130-400); RDW Coefficient of Variation 16.5 % (11.5-14.5); RDW Standard Deviation 50.8 fL (36.4-46.3); Red Blood Count 3.63 M/uL (4.2-5.4); White Blood Count 11.83 K/uL (4.8-10.8)
[2021-03-23 06:48] LABS: Partial Thromboplastin Ratio 1.9
[2021-03-23 06:51] LABS: Partial Thromboplastin Time 49.7 Seconds (21.0-31.0)
[2021-03-23 06:53] LABS: Calcium 8.8 mg/dl (8.5-10.1); Est GFR (African American) 149.4 ml/min; Est GFR (Non-African American) 128.9 ml/min; Magnesium 2.4 mg/dl (1.8-2.4); Phosphorus 2.9 mg/dl (2.5-4.9); Potassium 3.8 mmol/L (3.5-5.1)
[2021-03-23] MEDS: ICU ELECTROLYTE REPLACEMENT PROTOCOL SCH ×2 (07:18→18:03)
--- NOTE | 2021-03-23 07:51 | XRay Report ---
XR chest 1V portable HISTORY: Respiratory failure. COMPARISON: Chest 03/21/2021. FINDINGS: Lines and tubes remain in good position. No pneumothorax. No pleural effusions. The heart r emains mildly enlarged. There are are near diffuse bilateral airspace opacities, unchanged. IMPRESSION: 1. Lines and tubes remain in good position. 2. No change in extensive bilateral airspace opacities consistent with a pneumonia. ACT 112: Negative or not required by law. Electronically signed by: Ad Mancini M.D. 03/23/2021 7:49 AM
[2021-03-23] MEDS ORDERED: INSULIN GLARGINE SOLOSTAR 100 UNITS/ML 3 ML PEN SC SCH (08:00)
[2021-03-23] MEDS: POTASSIUM CHLORIDE / WTR 10 MEQ/100 ML PLCT IV SCH ×4 (08:37→12:41)
[2021-03-23] MEDS: FUROSEMIDE 40 MG in SYRINGE 0 ML IV SCH ×2 (08:50→22:18)
[2021-03-23] MEDS: ESCITALOPRAM OXALATE 10 MG TAB PO SCH (08:51)
[2021-03-23] MEDS: busPIRone 5 MG TAB PO SCH (08:52)
[2021-03-23] MEDS: buPROPion HCl 75 MG TABLET PO SCH ×2 (08:52→20:20)
[2021-03-23] MEDS: FAMOTIDINE 40 MG TABLET PO SCH (08:52)
[2021-03-23] MEDS: MIDAZOLAM HCL 125 MG/250 ML BAG IV SCH (09:18)
[2021-03-23] MEDS: SUCRALFATE 1 GM TAB PO SCH ×3 (09:58→16:47)
[2021-03-23] MEDS: HEPARIN SODIUM/DEXTROSE 25,000 UNITS/500 ML BAG IV SCH ×2 (11:24→22:22)
[2021-03-23] MEDS: PEPTAMEN INTENSE VHP 1.0 CAL 1,000 ML BAG GT SCH (12:35)
--- NOTE | 2021-03-23 12:52 | Pharmacy Report ---
Pharmacy Glycemic Short Note 2 - Date of Service March 23, 2021 - Glycemic Short BSG Results (Last 24 hours): 03/22/21 03/22/21 03/22/21 15:35 17:48 20:15 Glucose 130 H POC Glucose 126 H 127 H 03/22/21 03/23/21 03/23/21 23:33 04:05 04:07 Glucose POC Glucose 132 H 64 L* 67 L* 03/23/21 03/23/21 03/23/21 04:29 06:09 08:05 Glucose 109 H POC Glucose 206 H 116 H 03/23/21 03/23/21 11:08 11:57 Glucose POC Glucose 104 H 107 H OUTPATIENT ANTIDIABETIC REGIMEN: * none * A1c = 6.6% 03/18/21 ASSESSMENT: 03/23 * Hypoglycemia event this AM with BSG of 64 mg/dL. Etiology likely dual Lantus dose (although low dose at less than 0.1 units/kg) and Novolog coverage while on trickle tubefeeds. * BSG's have ranged 64-135 mg/dL over the last 24 hours. Significant changes required as this patient is ICU status (residing on ) therefore goal BSG range is 140-180 mg/dL. * Will stop Novolog coverage for *trickle* feeds, and only cover CHO if rate >= 20 mL/kg * Will reduce Lantus by 20% this AM, and then ongoing starting tomorrow will reduce dose (depending on BSG) and split BID 03/22 * Pt has received 16 units of insulin over the past 24hrs * 10 units of basal with Lantus * 6 units of bolus with NovoLog * BSGs [id number] mg/dl * All BSGs in goal range with current orders. * Trickle feeds continue; have been on and off but CHO coverage just held accordingly. * No changes needed today. 03/20: * Patient well controlled over the past 24 hours. * Dexamethasone course completed yesterday and thus last dose of NPH administered yesterday morning. * Will increase lantus dose today, but loosen NovoLog scale. Trophic enteral feeds remain. Patient also continues on heparin, which is providing some continuous dextrose as well. 03/18 * Patient w/ h/o "pre-diabetes" admitted for COVID19 viral pneumonia. Latest A1c more consistent w/ dx of DM. * Currently intubated, sedated, receiving paralytics and IV steroids. * Today is day 9 of dexamethasone IV, currently receiving 10mg IV daily in the AM. Tomorrow appears to be the final day of therapy if not reordered * "Tickle" tube feeds have also been running * Pt did become hyperglycemic mid-day yesterday, coinciding w/ IV dexamethasone administration. * Will escalate Novolog correctional / prandial doses and NPH to combat rise in BSGs following AM dexamethasone admin. PLAN FOR INPATIENT GLYCEMIC CONTROL: * Basal insulin * Lantus 10 units SQ QAM * Bolus insulin (decreased) * NovoLog per scale Q 4 hrs * Goal Range: Low 110 mg/dL - High 140 mg/dL * Correction Factor: 20 mg/dL/unit * Nutritional / Prandial insulin per carb ratio of 1 unit per 6 grams CHO consumed via continuous tube feedings PLAN FOR DISCHARGE: * Would recommend diet/lifestyle modifications on discharge. One could consider the addition of metformin in the near future if no contraindications present.
--- NOTE | 2021-03-23 14:05 | Critical Care Progress Note ---
Date of Service March 23, 2021 Assessment & Plan (1) Pneumonia due to COVID-19 virus: (2) Acute hypoxemic respiratory failure: (3) Pulmonary embolism: (4) Morbid obesity: Plan: Reason Critically Ill: Leigh Carballo is a 35 year old female w/ PMHx of DM, anxiety/depression, rheumatoid arthritis, obesity, distant 2.5 pack yr hx tobacco who presents w/ covid pneumonia and worsened hypoxemic respiratory failure due to pulmonary embolism. She has received tPA. Patient was intubated 03/17/21 for impending resp failure. 24-hour events: Patient has been maintained on stable vent settings albeit with a relatively high PEEP. She has been hemodynamically stable. Recommendations: Neuro -currently sedated on Versed and fentanyl. She is day 6 mechanical ventilation. We will add low-dose oral clonazepam and OxyContin to try and wean fentanyl and Versed. On Lexapro and BuSpar. Cardiac -hemodynamically stable off pressors. Bradycardia resolved. Respiratory -acute on chronic hypoxemic and hypercarbic respiratory failure. She remains with elevated PCO2 despite her current vent settings. She is on about 5 cc/kg tidal volume. Plateau pressures have been in the upper 20s. Most recent blood gas 7.3 4/75/64. AC 24/300/18/0.6. Continue to tolerate permissive hypercarbia. Patient is over 4 L positive. Her kidney functions good. We will provide more aggressive diuresis. Patient is found to have PE and received systemic thrombolysis. Continue heparin infusion. We will see how she responds to aggressive diuresis and hopefully we can wean her PEEP to some degree. PEEP requirements are currently too high to consider tracheostomy but if the patient fails to improve over the next week, this may be a consideration. GI - NPO. Continue tube feeds. Glycemic consult placed. pepcid 40 IV qam. RENAL/LYTES - on ICU electrolyte replacement protocol. Needs diuresis. Increase scheduled lasix to Q8. - Aldridge. Strict Is/Os. ENDO - ICU hyperglycemia protocol. HEME -mild anemia. No evidence of acute active ongoing bleeding. No indication for transfusion currently. Continue anticoagulation in the form of a heparin drip. At some point will need to transition to oral anticoagulants. Anticipate at least 3 to 6 months of anticoagulation although could make a case for lifelong anticoagulation given her morbid obesity ID -patient is completed dexamethasone. Off Abx currently and afebrile with normal WBC. LINES/IV ACCESS - PIVs intact. + LIJ central venous catheter. DVT PROPHYLAXIS - SCDs. Heparin drip, therapeutic code: full dispo: continue ICU status. Discussed w/ Chey and Roge regarding eval for ecmo: Not a candidate Patient remains critically ill at this point time with multiorgan system dysfunction/failure. She is on life support. Significant probability of clinical deterioration and/or . Total of 50 minutes in critical care time was spent evaluation management and stabilization of this patient including discussion with bedside ICU nurse and on multidisciplinary rounds. Admission and Anticipated Discharge Date Admission Date: March 10, 2021 Subjective Intubated and sedated on the mechanical ventilator Review of Systems Review of Systems: Unobtainable due to endotracheal tube Physical Exam Physical Exam: Remains sedated on ventilator Constitutional: well developed, well nourished, + ill appearing and + obese Eyes: PERRL, conjunctivae normal, anicteric sclerae Neck: trachea midline, no thyromegaly Respiratory: + respiratory distress Auscultation: + diminished lung sounds and + crackles (At the bases) Cardiovascular: Rate/Rhythm: regular rate and regular rhythm; not tachycardic Heart Sounds: normal S1 and normal S2; no murmur Extremities: + edema (Trace edema bilaterally) Gastrointestinal (Abdomen): Inspection/Auscultation: normal bowel sounds; abdomen not distended Percussion/Palpation: abdomen soft; abdomen nontender Neurologic: Intubated and sedated Lymphatic: no cervical or axillary lymphadenopathy Results & Data Results & Data ([facility]) Vital Signs (Past 12 Hours) Vital Signs Temp Pulse Resp BP Pulse Ox 03/23/21 10:55 77 24 91 03/23/21 08:00 72 03/23/21 07:50 74 23 92 03/23/21 05:32 113/62 03/23/21 05:30 37.9 C H 77 93 03/23/21 05:15 37.9 C H 79 91 03/23/21 05:02 118/52 L 03/23/21 05:00 38.0 C H 78 92 03/23/21 04:47 129/66 03/23/21 04:45 37.9 C H 72 91 03/23/21 04:32 127/63 03/23/21 04:30 38.0 C H 70 92 03/23/21 04:15 38.0 C H 76 92 03/23/21 04:00 38.1 C H 77 90 03/23/21 03:45 38.1 C H 78 91 03/23/21 03:30 38.1 C H 76 92 03/23/21 03:15 38.0 C H 77 93 03/23/21 03:00 38.0 C H 77 22 92 03/23/21 02:45 38.0 C H 76 92 03/23/21 02:30 38.0 C H 80 92 03/23/21 02:15 38.1 C H 77 94 03/23/21 02:00 38.1 C H 80 92 Critical Care Results & Data Vital Signs (Past 12 Hours) Vital Signs Temp Pulse Resp BP Pulse Ox 03/23/21 10:55 77 24 91 03/23/21 08:00 72 03/23/21 07:50 74 23 92 03/23/21 05:32 113/62 03/23/21 05:30 37.9 C H 77 93 03/23/21 05:15 37.9 C H 79 91 03/23/21 05:02 118/52 L 03/23/21 05:00 38.0 C H 78 92 03/23/21 04:47 129/66 03/23/21 04:45 37.9 C H 72 91 03/23/21 04:32 127/63 03/23/21 04:30 38.0 C H 70 92 03/23/21 04:15 38.0 C H 76 92 03/23/21 04:00 38.1 C H 77 90 03/23/21 03:45 38.1 C H 78 91 03/23/21 03:30 38.1 C H 76 92 03/23/21 03:15 38.0 C H 77 93 03/23/21 03:00 38.0 C H 77 22 92 03/23/21 02:45 38.0 C H 76 92 03/23/21 02:30 38.0 C H 80 92 03/23/21 02:15 38.1 C H 77 94 03/23/21 02:00 38.1 C H 80 92 Lab & Micro Results (Past 24 Hours) RBC 3.63 M/uL (4.2-5.4) L 03/23/21 WBC 11.83 K/uL (4.8-10.8) H 03/23/21 Hgb 9.3 g/dL (12.0-16.0) L 03/23/21 Hct 30.5 % (37-47) L 03/23/21 MCV 84.0 fL (80-100) 03/23/21 MCH 25.6 pg (25-34) 03/23/21 MCHC 30.5 g/dL (32-36) L 03/23/21 RDW Standard Deviation 50.8 fL (36.4-46.3) H 03/23/21 RDW Coefficient of Variation 16.5 % (11.5-14.5) H 03/23/21 Plt Count 311 K/uL (130-400) 03/23/21 MPV 9.1 fL (7.4-10.4) 03/23/21 Neutrophils (%) (Auto) 84.5 % 03/23/21 Lymphocytes (%) (Auto) 7.9 % 03/23/21 Monocytes # (Auto) 0.71 K/uL (0.11-0.59) H 03/23/21 Eosinophils # (Auto) 0.09 K/uL (0-0.5) 03/23/21 Immature Granulocyte % (Auto) 0.7 % 03/23/21 Neutrophils # (Auto) 10.01 K/uL (1.4-6.5) H 03/23/21 Lymphocytes # (Auto) 0.93 K/uL (1.2-3.4) L 03/23/21 Monocytes # (Auto) 0.71 K/uL (0.11-0.59) H 03/23/21 Eosinophils # (Auto) 0.09 K/uL (0-0.5) 03/23/21 Basophils # (Auto) 0.01 K/uL (0-0.2) 03/23/21 Immature Granulocyte # (Auto) 0.08 K/uL (0.00-0.02) H 03/23/21 Na 134 mmol/L (136-145) L 03/23/21 K 3.8 mmol/L (3.5-5.1) 03/23/21 Cl 95 mmol/L (98-107) L 03/23/21 CO2 37 mmol/L (21-32) H 03/23/21 Anion Gap 2.0 (3-11) L 03/23/21 BUN 13 mg/dl (7-18) 03/23/21 Creatinine 0.45 mg/dl (0.6-1.2) L 03/23/21 Estimated GFR ( Amer) 149.4 ml/min 03/23/21 Estimated GFR (Non-Af Amer) 128.9 ml/min 03/23/21 BUN/Creatinine Ratio 29.0 (10-20) H 03/23/21 Glu 109 mg/dl (70-99) H 03/23/21 Ca 8.8 mg/dl (8.5-10.1) 03/23/21 Phosphorus Level 2.9 mg/dl (2.5-4.9) 03/23/21 Mg 2.4 mg/dl (1.8-2.4) 03/23/21 06:09 03/23/21 Calcium Level 8.8 mg/dl (8.5-10.1) 03/23/21 06:09 03/23/21 Howard Test Pass 03/23/21 04:34 03/23/21 Diagnostic Findings (Past 24 Hours) Chest X-Ray 03/23/21 07:00 XR chest 1V portable HISTORY: Respiratory failure. COMPARISON: Chest 03/21/2021. FINDINGS: Lines and tubes remain in good position. No pneumothorax. No pleural effusions. The heart remains mildly enlarged. There are are near diffuse bilateral airspace opacities, unchanged. IMPRESSION: 1. Lines and tubes remain in good position. 2. No change in extensive bilateral airspace opacities consistent with a pneumonia. ACT 112: Negative or not required by law. Electronically signed by: Ad Mancini M.D. 03/23/2021 7:49 AM I & O Totals 24 Hours 03/22/21 03/23/21 03/24/21 06:59 06:59 06:59 Intake Total 3144.185 / 3144.185 4719.917 / 4719.917 1355.875 / 1355.875 Output Total 2625 / 2625 2525 / 2525 785 / 785 Balance 519.185 / 034.086 0892.917 / 2194.917 570.875 / 570.875 Cumulative 03/09/21 16:38 thru 03/23/21 12:45 Intake Total 27566.679 Output Total 91457 Balance 4301.679 RT Ventilator Mngmt (Last Documented) Ventilator Ordered Settings Ventilator Support Mode Assist Control 03/23/21 12:00 Respiratory Rate 24 03/23/21 10:55 Ventilator Tidal Volume 300 03/23/21 12:00 Setting Minute Ventilation 6.6 03/23/21 10:55 Positive End Expiratory 18 03/23/21 12:00 Pressure Fraction of Inspired Oxygen 60 03/23/21 12:00 Peak Inspiratory Flow 36 03/18/21 03:56 Machine Comment Weaned back to 55% 03/22/21 20:00 Ventilator - PT Measurements Respiratory Rate 24 Exhaled Tidal Volume 300 Minute Ventilation 6.6 Peak Inspiratory Airway 31 Pressure Plateau Pressure 29 Respiratory Cycle Inspiratory: 1:2.0 Expiratory Ratio Inspiratory Phase Time 0.90 Static Lung Compliance 27.27 Dynamic Lung Compliance 23.08 Normal Static Lung Compliance 46.00 Patient Measurements Comment Patient SPO2 decreased to 81% as patient was being assessed for nursing skin assessment, FIO2 increased to 70% to maintain an SPO2 of 90% or greater Coding Level of Care Code Critical Care 1st 30-74 mins Diagnoses Pneumonia due to COVID-19 virus U07.1; J12.82 Acute hypoxemic respiratory failure J96.01 Pulmonary embolism I26.99 Morbid obesity E66.01 Time Spent (min) 50
--- NOTE | 2021-03-23 14:42 | Hospitalist Progress Note ---
Date of Service March 23, 2021 Assessment & Plan (1) Acute hypoxemic respiratory failure: Plan: Extensive right-sided pulmonary embolism. CTA did show extensive right-sided pulmonary embolism no echocardiogram was available to assess RV strain The case discussed with aircraft stress analyst in [place] Dr. Jacques and was not advised for any TPN given the hemodynamic stability and the patient has been under waiting list as there is no bed in ICU The case was discussed with aircraft stress analyst Dr. Resendiz in [facility] and also Dr. Souza the plastics design engineer who decided to go ahead and give TPA for this patient and heparin. The patient received TPA and followed by intravenous heparin. Status post intubation on 03/17/2021 and remains sedated Repeat CAT scan did not show any massive embolism but showed continued progressive pneumonia secondary to COVID-19 infection. Patient received systemic thrombolysis. Remains on heparin infusion. The aircraft stress analyst has been trying to get her into ECMO therapy at [facility]-ECMO therapy is denied Remains on Versed/fentanyl. Continue with aggressive diuresis. Monitor ins and outs. Secondary to severe COVID-19 pneumonia Did not receive any vaccination for COVID-19 Continue with dexamethasone on admission and finished course of remdesivir. Appreciate pulmonary input and recommendation. Baricitinib has been stopped. C/w decadron and lasix. Repeat CTA did show progression of the pneumonia. Finished the course of dexamethasone, remdesivir and baricitinib H/O Hypertension Lisinopril is on hold H/O Anxiety/mood disorder: Continue her medications through the NG tube H/O DM2: Hold [employer] oral medications, well-controlled as of recent hemoglobin A1c of 5.19 November 2020 Basal insulin, ISS BG goal 1 10-1 40, carb count coverage, update hemoglobin A1c-6.3 as of 03/09/2021 Nutrition is maintained through NGt feeding DVT prophylaxis per Lovenox subcu Received TPA and now on Heparin Full code. Admission and Anticipated Discharge Date Admission Date: March 10, 2021 Subjective Patient remains intubated/sedated. Review of Systems Review of Systems: Unobtainable due to endotracheal tube Physical Exam Physical Exam: General: Mechanically ventilated HENT: NCAT, MMM CVS: Bradycardic Resp: b/l good breath sounds Abdomen: Soft, ND/ Extremities: No c/c/e Neuro: Patient remains ventilated Skin: warm and dry, no rashes/lesions/errythema MSK: no joint swelling/erythema Aldridge catheter in place. Results & Data Results & Data ([facility]) Vital Signs (Past 12 Hours) Vital Signs Temp Pulse Resp BP Pulse Ox 03/23/21 14:34 69 23 88 L 03/23/21 10:55 77 24 91 03/23/21 08:00 72 03/23/21 07:50 74 23 92 03/23/21 05:32 113/62 03/23/21 05:30 37.9 C H 77 93 03/23/21 05:15 37.9 C H 79 91 03/23/21 05:02 118/52 L 03/23/21 05:00 38.0 C H 78 92 03/23/21 04:47 129/66 03/23/21 04:45 37.9 C H 72 91 03/23/21 04:32 127/63 03/23/21 04:30 38.0 C H 70 92 03/23/21 04:15 38.0 C H 76 92 03/23/21 04:00 38.1 C H 77 90 03/23/21 03:45 38.1 C H 78 91 03/23/21 03:30 38.1 C H 76 92 03/23/21 03:15 38.0 C H 77 93 03/23/21 03:00 38.0 C H 77 22 92 03/23/21 02:45 38.0 C H 76 92
[2021-03-23] MEDS: clonazePAM 0.5 MG TAB PO SCH (20:24)
[2021-03-23] MEDS: oxyCODONE HCL SOLN 5 MG/5 ML UDC PO SCH (20:25)
[2021-03-24] MEDS ORDERED: VECURONIUM BROMIDE 10 MG VIAL IV STA ×2 (01:02→15:44)
[2021-03-24] MEDS ORDERED: SOD PHOSPHATE/SOD BIPHOSPHATE ENEMA 132 ML BTL PR STA (01:08)
[2021-03-24] MEDS ORDERED: VECURONIUM BROMIDE 10 MG VIAL IV ONE ×4 (01:16→15:42)
[2021-03-24] MEDS: INSULIN ASPART 100 UNITS/ML 3 ML PEN SC SCH ×6 (03:06→20:08)
[2021-03-24] MEDS: SUCRALFATE 1 GM TAB PO SCH ×5 (03:22→21:15)
[2021-03-24 04:16] LABS: iSTAT Allen Test Pass; iSTAT Art Bld Gas pCO2 Correct 82 mmHg (35-46); iSTAT Art Bld Gas pH Corrected 7.359 (7.35-7.45); iSTAT Arterial Blood Gas HCO3 46 meg/L (19-24); iSTAT Arterial Blood Gas pCO2 78 mmHg (35-46); iSTAT Arterial Blood Gas pH 7.38 (7.35-7.45); iSTAT Arterial Blood Gas pO2 62 mmHg (80-95); iSTAT Arterial Blood Gas pO2 C 67; iSTAT Carbon Dioxide > 40 mmol/L (24-31); iSTAT FiO2 80 %; iSTAT Hematocrit 29 % (37-47); iSTAT Hemoglobin 9.9 g/dl (12.0-16.0); iSTAT Potassium 3.9 mmol/L (3.3-5.0); iSTAT Site R Brachial; iSTAT Sodium 133 mmol/L (135-144)
[2021-03-24 06:28] LABS: Basophils # (auto) 0.01 K/uL (0-0.2); Basophils % (auto) 0.1 %; Eosinophils # (auto) 0.08 K/uL (0-0.5); Eosinophils % (auto) 0.7 %; Hematocrit (blood only) 29.8 % (37-47); Immature Granulocytes # (auto) 0.04 K/uL (0.00-0.02); Immature Granulocytes % (auto) 0.3 %; Lymphocytes # (auto) 0.77 K/uL (1.2-3.4); Lymphocytes % (auto) 6.5 %; Mean Corpuscular Hemoglobin 25.6 pg (25-34); Mean Corpuscular Hgb Conc 30.2 g/dL (32-36); Mean Corpuscular Volume 84.7 fL (80-100); Mean Platelet Volume 8.9 fL (7.4-10.4); Monocytes # (auto) 0.74 K/uL (0.11-0.59); Monocytes % (auto) 6.3 %; Neutrophils # (auto) 10.16 K/uL (1.4-6.5); Neutrophils % (auto) 86.1 %; Platelet Count 307 K/uL (130-400); RDW Coefficient of Variation 16.4 % (11.5-14.5); Red Blood Count 3.52 M/uL (4.2-5.4)
[2021-03-24 06:33] LABS: Partial Thromboplastin Ratio 1.2; Partial Thromboplastin Time 32.1 Seconds (21.0-31.0)
[2021-03-24] MEDS: FUROSEMIDE 40 MG in SYRINGE 0 ML IV SCH (06:35)
[2021-03-24 06:41] LABS: BUN Creatinine Ratio 36.4 (10-20); Calcium 9.1 mg/dl (8.5-10.1); Creatinine Clr Calc Pharmacy 231.7 ml/min; Est GFR (African American) 147.3 ml/min; Est GFR (Non-African American) 127.1 ml/min; Magnesium 1.9 mg/dl (1.8-2.4); Potassium 3.9 mmol/L (3.5-5.1)
[2021-03-24 06:47] LABS: Phosphorus 4.9 mg/dl (2.5-4.9)
[2021-03-24] MEDS: ICU ELECTROLYTE REPLACEMENT PROTOCOL SCH (07:33)
[2021-03-24] MEDS: ACETAMINOPHEN 325 MG TAB PO PRN (07:37)
[2021-03-24] MEDS ORDERED: HEPARIN SOD (PORCINE) 1000 UNIT/ML IV ONE (07:45)
[2021-03-24] MEDS: MAGNESIUM OXIDE 400 MG TAB PO SCH ×2 (07:55→21:14)
[2021-03-24] MEDS: POTASSIUM CHLORIDE 20 MEQ/15 ML UDC PO SCH ×2 (07:55→21:15)
[2021-03-24] MEDS: INSULIN GLARGINE SOLOSTAR 100 UNITS/ML 3 ML PEN SC SCH ×2 (08:13→20:09)
--- NOTE | 2021-03-24 08:41 | XRay Report ---
KUB CLINICAL HISTORY: constipation COMPARISON STUDY: CT of the abdomen and pelvis January 28, 2019. FINDINGS: There are cholecystectomy clips. Tip of nasogastric tube is within the distal body of the s tomach. Extensive airspace opacities are noted within visualized portions of the lungs. Relative pauc ity of bowel gas is noted. No convincing evidence for a bowel obstruction. Spuq-zt-yzzldowc amount stool is present. IMPRESSION: 1. No evidence for a bowel obstruction. 2. Tip of nasogastric tube within the distal body of the stomach. 3. Lzhf-we-uabgyoux amount of stool. 4. Partially visualized extensive bilateral airspace opacities within the lungs. ACT 112: Negative or not required by law. Electronically signed by: Ady Mccracken M.D. 03/24/2021 8:39 AM
[2021-03-24] MEDS: busPIRone 5 MG TAB PO SCH (08:44)
[2021-03-24] MEDS: buPROPion HCl 75 MG TABLET PO SCH ×2 (08:44→21:12)
[2021-03-24] MEDS: FAMOTIDINE 40 MG TABLET PO SCH (08:45)
[2021-03-24] MEDS: ESCITALOPRAM OXALATE 10 MG TAB PO SCH (08:45)
[2021-03-24] MEDS: HEPARIN SODIUM/DEXTROSE 25,000 UNITS/500 ML BAG IV SCH ×5 (10:04→19:50)
[2021-03-24] MEDS: oxyCODONE HCL SOLN 5 MG/5 ML UDC PO SCH ×2 (10:06→21:18)
[2021-03-24] MEDS: clonazePAM 0.5 MG TAB PO SCH ×2 (10:06→21:18)
[2021-03-24] MEDS: NOREPINEPHRINE/D5W 8 MG/508 ML BAG IV SCH ×4 (10:07→23:23)
--- NOTE | 2021-03-24 10:43 | Critical Care Progress Note ---
Date of Service March 24, 2021 Assessment & Plan (1) Pneumonia due to COVID-19 virus: (2) Acute hypoxemic respiratory failure: (3) Pulmonary embolism: (4) Morbid obesity: Plan: Reason Critically Ill: Leigh Carballo is a 35 year old female w/ PMHx of DM, anxiety/depression, rheumatoid arthritis, obesity, distant 2.5 pack yr hx tobacco who presents w/ covid pneumonia and worsened hypoxemic respiratory failure due to pulmonary embolism. She has received tPA. Patient was intubated 03/17/21 for impending resp failure. 24-hour events: Had episodic decrease in oxygen saturation overnight. Was briefly paralyzed. No significant improvement. Blood pressures on the low side this morning. Nursing reported purulent secretions from the nasopharynx and nares. Recommendations: Neuro -currently sedated on Versed and fentanyl. She is day 7 mechanical ventilation. We will continue low-dose oral clonazepam and OxyContin to try and wean fentanyl and Versed. On Lexapro and BuSpar. No role for additional paralytics at this point time. Blood pressure is too soft to consider Precedex. Cardiac -blood pressure slightly reduced today. May need to restart pressors especially in light of continued attempts at diuresis.. Respiratory -acute on chronic hypoxemic and hypercarbic respiratory failure. She remains with elevated PCO2 despite her current vent settings. She is on about 5 cc/kg tidal volume. Plateau pressures have been in the upper 20s. Most recent blood gas 7.3 8/78/62. AC 24/300/18/0.6. Continue to tolerate permissive hypercarbia. Patient's peak and plateau pressures were elevated above 30. Decrease tidal volume to 275 cc and augmented respiratory rate to 30. Transitions to inverse ratio ventilation with PASTOR ratio of 1:1. She may be over distended with PEEP so we will transition to low PEEP strategy. PEEP dropped to 15 and FiO2 increased to 0.9. Patient is over 4 L positive. See diuresis below. Patient is found to have PE and received systemic thrombolysis. Continue heparin infusion. We will see how she responds to aggressive diuresis and hopefully we can wean her PEEP to some degree. PEEP requirements are currently too high to consider tracheostomy but if the patient fails to improve over the next week, this may be a consideration. GI -tube feeds on hold due to high residuals. Will start prokinetic agent such as erythromycin or Reglan depending on drug availability. Discussed with pharmacy. pepcid 40 IV qam. No evidence of obstruction on KUB RENAL/LYTES - on ICU electrolyte replacement protocol. No significant response to higher dose Lasix. Will place on Lasix drip at 10 mg an hour. May need to adjust dose. May require metolazone and/or Aldactone. - Aldridge. Strict Is/Os. ENDO - ICU hyperglycemia protocol. HEME -mild anemia. No evidence of acute active ongoing bleeding. No indication for transfusion currently. Continue anticoagulation in the form of a heparin drip. At some point will need to transition to oral anticoagulants. Anticipate at least 3 to 6 months of anticoagulation although could make a case for lifelong anticoagulation given her morbid obesity ID -patient now mildly febrile. Nursing reports purulent drainage from the nose. Will check cultures of the nasal secretions as well as blood cultures, respiratory cultures, and urine cultures. Recheck procalcitonin. Hold antibiotics for now. May need to change out lines. Consider nosocomial sinusitis as well. LINES/IV ACCESS - PIVs intact. + LIJ central venous catheter. DVT PROPHYLAXIS - SCDs. Heparin drip, therapeutic code: full dispo: continue ICU status. Discussed w/ Chey and Roge regarding eval for ecmo: Not a candidate Patient remains critically ill at this point time with multiorgan system dysfunction/failure. She is on life support. Significant probability of clinical deterioration and/or . Total of 48 minutes in critical care time was spent evaluation management and stabilization of this patient including disc ussion with bedside ICU nurse and on multidisciplinary rounds. Family will be updated by phone later today if possible. Admission and Anticipated Discharge Date Admission Date: March 10, 2021 Subjective Patient remains intubated/sedated. Review of Systems Review of Systems: Unobtainable due to endotracheal tube Physical Exam Physical Exam: Remains sedated on ventilator Constitutional: + ill appearing and + obese Eyes: PERRL, conjunctivae normal, anicteric sclerae Neck: trachea midline, no thyromegaly Respiratory: Auscultation: + diminished lung sounds and + crackles (At the bases) Cardiovascular: Rate/Rhythm: regular rate and regular rhythm; not tachycardic Heart Sounds: normal S1 and normal S2; no murmur Extremities: + edema (Trace edema bilaterally) Gastrointestinal (Abdomen): Inspection/Auscultation: normal bowel sounds; abdomen not distended Percussion/Palpation: abdomen soft; abdomen nontender Lymphatic: no cervical or axillary lymphadenopathy Results & Data Results & Data ([facility]) Vital Signs (Past 12 Hours) Vital Signs Temp Pulse Resp Pulse Ox 03/24/21 08:12 69 25 H 93 03/24/21 08:00 74 03/24/21 06:00 38.1 C H 72 91 03/24/21 05:00 38.2 C H 74 91 03/24/21 04:00 38.2 C H 75 88 L 03/24/21 03:15 73 24 89 L 03/24/21 03:00 38.0 C H 75 95 03/24/21 02:00 37.9 C H 79 92 03/24/21 01:00 37.9 C H 77 90 03/24/21 00:00 38.1 C H 79 88 L 03/23/21 23:00 37.7 C H 73 90 03/23/21 22:39 73 23 89 L Critical Care Results & Data Vital Signs (Past 12 Hours) Vital Signs Temp Pulse Resp Pulse Ox 03/24/21 08:12 69 25 H 93 03/24/21 08:00 74 03/24/21 06:00 38.1 C H 72 91 03/24/21 05:00 38.2 C H 74 91 03/24/21 04:00 38.2 C H 75 88 L 03/24/21 03:15 73 24 89 L 03/24/21 03:00 38.0 C H 75 95 03/24/21 02:00 37.9 C H 79 92 03/24/21 01:00 37.9 C H 77 90 03/24/21 00:00 38.1 C H 79 88 L 03/23/21 23:00 37.7 C H 73 90 03/23/21 22:39 73 23 89 L Lab & Micro Results (Past 24 Hours) RBC 3.52 M/uL (4.2-5.4) L 03/24/21 WBC 11.80 K/uL (4.8-10.8) H 03/24/21 Hgb 9.0 g/dL (12.0-16.0) L 03/24/21 Hct 29.8 % (37-47) L 03/24/21 MCV 84.7 fL (80-100) 03/24/21 MCH 25.6 pg (25-34) 03/24/21 MCHC 30.2 g/dL (32-36) L 03/24/21 RDW Standard Deviation 51.0 fL (36.4-46.3) H 03/24/21 RDW Coefficient of Variation 16.4 % (11.5-14.5) H 03/24/21 Plt Count 307 K/uL (130-400) 03/24/21 MPV 8.9 fL (7.4-10.4) 03/24/21 Neutrophils (%) (Auto) 86.1 % 03/24/21 Lymphocytes (%) (Auto) 6.5 % 03/24/21 Monocytes # (Auto) 0.74 K/uL (0.11-0.59) H 03/24/21 Eosinophils # (Auto) 0.08 K/uL (0-0.5) 03/24/21 Immature Granulocyte % (Auto) 0.3 % 03/24/21 Neutrophils # (Auto) 10.16 K/uL (1.4-6.5) H 03/24/21 Lymphocytes # (Auto) 0.77 K/uL (1.2-3.4) L 03/24/21 Monocytes # (Auto) 0.74 K/uL (0.11-0.59) H 03/24/21 Eosinophils # (Auto) 0.08 K/uL (0-0.5) 03/24/21 Basophils # (Auto) 0.01 K/uL (0-0.2) 03/24/21 Immature Granulocyte # (Auto) 0.04 K/uL (0.00-0.02) H 03/24/21 Na 135 mmol/L (136-145) L 03/24/21 K 3.9 mmol/L (3.5-5.1) 03/24/21 Cl 91 mmol/L (98-107) L 03/24/21 CO2 39 mmol/L (21-32) H 03/24/21 Anion Gap 4.0 (3-11) 03/24/21 BUN 17 mg/dl (7-18) 03/24/21 Creatinine 0.47 mg/dl (0.6-1.2) L 03/24/21 Estimated GFR ( Amer) 147.3 ml/min 03/24/21 Estimated GFR (Non-Af Amer) 127.1 ml/min 03/24/21 BUN/Creatinine Ratio 36.4 (10-20) H 03/24/21 Glu 110 mg/dl (70-99) H 03/24/21 Ca 9.1 mg/dl (8.5-10.1) 03/24/21 Phosphorus Level 4.9 mg/dl (2.5-4.9) 03/24/21 Mg 1.9 mg/dl (1.8-2.4) 03/24/21 06:04 03/24/21 Calcium Level 9.1 mg/dl (8.5-10.1) 03/24/21 06:04 03/24/21 Howard Test Pass 03/24/21 03:44 03/24/21 Diagnostic Findings (Past 24 Hours) KUB X-Ray 03/24/21 06:55 KUB CLINICAL HISTORY: constipation COMPARISON STUDY: CT of the abdomen and pelvis January 28, 2019. FINDINGS: There are cholecystectomy clips. Tip of nasogastric tube is within the distal body of the stomach. Extensive airspace opacities are noted within visualized portions of the lungs. Relative paucity of bowel gas is noted. No convincing evidence for a bowel obstruction. Eqai-we-zxndompa amount stool is present. IMPRESSION: 1. No evidence for a bowel obstruction. 2. Tip of nasogastric tube within the distal body of the stomach. 3. Ibtn-rl-fxxhxgpr amount of stool. 4. Partially visualized extensive bilateral airspace opacities within the lungs. ACT 112: Negative or not required by law. Electronically signed by: Ady Mccracken M.D. 03/24/2021 8:39 AM I & O Totals 24 Hours 03/23/21 03/24/21 03/25/21 06:59 06:59 06:59 Intake Total 4719.917 / 4719.917 2365.725 / 2365.725 797.492 / 797.492 Output Total 2525 / 2525 2215 / 2215 300 / 300 Balance 2194.917 / 2194.917 150.725 / 150.725 497.492 / 497.492 Cumulative 03/09/21 16:38 thru 03/24/21 10:07 Intake Total 91445.021 Output Total 10508 Balance 4379.021 RT Ventilator Mngmt (Last Documented) Ventilator Ordered Settings Ventilator Support Mode Assist Control 03/24/21 08:12 Respiratory Rate 25 03/24/21 08:12 Ventilator Tidal Volume 300 03/24/21 08:12 Setting Minute Ventilation 6.8 03/24/21 08:12 Positive End Expiratory 18 03/24/21 08:12 Pressure Fraction of Inspired Oxygen 80 03/24/21 08:12 Peak Inspiratory Flow 36 03/18/21 03:56 Machine Comment Increased to 80% 03/23/21 19:00 Ventilator - PT Measurements Respiratory Rate 25 Exhaled Tidal Volume 368 Minute Ventilation 6.8 Peak Inspiratory Airway 34 Pressure Plateau Pressure 30.4 Respiratory Cycle Inspiratory: 1:2.0 Expiratory Ratio Inspiratory Phase Time 0.9 Static Lung Compliance 29.68 Dynamic Lung Compliance 23.00 Normal Static Lung Compliance 46.00 Patient Measurements Comment Patient SPO2 decreased to 81% as patient was being assessed for nursing skin assessment, FIO2 increased to 70% to maintain an SPO2 of 90% or greater Coding Level of Care Code Critical Care 1st 30-74 mins Diagnoses Pneumonia due to COVID-19 virus U07.1; J12.82 Acute hypoxemic respiratory failure J96.01 Pulmonary embolism I26.99 Morbid obesity E66.01 Time Spent (min) 48
[2021-03-24] MEDS ORDERED: STAT IV Infusion **Titration per Protocol STA (10:50)
[2021-03-24] MEDS ORDERED: PROPOFOL BOLUS FROM BAG IV PRN (10:50)
[2021-03-24] MEDS ORDERED: PROPOFOL IV EMULSION 10 MG/ML 100 ML VIAL IV ONE (10:50)
[2021-03-24 10:55] LABS: iSTAT Art Bld Gas pCO2 Correct 83 mmHg (35-46); iSTAT Arterial Blood Gas HCO3 45 meg/L (19-24); iSTAT Arterial Blood Gas pCO2 84 mmHg (35-46); iSTAT Arterial Blood Gas pH 7.34 (7.35-7.45); iSTAT Arterial Blood Gas pO2 54 mmHg (80-95); iSTAT Arterial Blood Gas pO2 C 53; iSTAT Carbon Dioxide > 40 mmol/L (24-31); iSTAT FiO2 100 %; iSTAT Hematocrit 30 % (37-47); iSTAT Hemoglobin 10.2 g/dl (12.0-16.0); iSTAT Potassium 4.2 mmol/L (3.3-5.0); iSTAT Site R Brachial; iSTAT Sodium 133 mmol/L (135-144)
--- NOTE | 2021-03-24 11:15 | Pharmacy Report ---
Pharmacy Glycemic Short Note 2 - Date of Service March 24, 2021 - Glycemic Short BSG Results (Last 24 hours): 03/23/21 03/23/21 03/23/21 11:08 11:57 16:25 Glucose POC Glucose 104 H 107 H 114 H 03/23/21 03/24/21 03/24/21 20:29 00:02 04:09 Glucose POC Glucose 104 H 101 H 101 H 03/24/21 03/24/21 06:04 08:11 Glucose 110 H POC Glucose 95 OUTPATIENT ANTIDIABETIC REGIMEN: * none * A1c = 6.6% 03/18/21 ASSESSMENT: 1012 * BSG's remain below goal range for ICU status patient after only 8 units of basal insulin yesterday. Will reduce further (possibly down to 0 units if BSG's remain below 120 mg/dL) and split BID based on BSG 03/23 * Hypoglycemia event this AM with BSG of 64 mg/dL. Etiology likely dual Lantus dose (although low dose at less than 0.1 units/kg) and Novolog coverage while on trickle tubefeeds. * BSG's have ranged 64-135 mg/dL over the last 24 hours. Significant changes required as this patient is ICU status (residing on 2E) therefore goal BSG ra nge is 140-180 mg/dL. * Will stop Novolog coverage for *trickle* feeds, and only cover CHO if rate >= 20 mL/kg * Will reduce Lantus by 20% this AM, and then ongoing starting tomorrow will reduce dose (depending on BSG) and split BID 03/22 * Pt has received 16 units of insulin over the past 24hrs * 10 units of basal with Lantus * 6 units of bolus with NovoLog * BSGs [phone] mg/dl * All BSGs in goal range with current orders. * Trickle feeds continue; have been on and off but CHO coverage just held accordingly. * No changes needed today. PLAN FOR INPATIENT GLYCEMIC CONTROL: * Basal insulin * Lantus 0-4 units SQ BID based on BSG * Bolus insulin * NovoLog per scale Q 4 hrs * Goal Range: Low 110 mg/dL - High 140 mg/dL * Correction Factor: 25 mg/dL/unit * Nutritional / Prandial insulin per carb ratio of 1 unit per 8 grams CHO consumed via continuous tube feedings PLAN FOR DISCHARGE: * Would recommend diet/lifestyle modifications and outpatient follow-up to determine if uptitration of metformin is reasonable
[2021-03-24] MEDS: propofoL 1,000 MG/100 ML VIAL IV SCH ×5 (11:18→21:18)
[2021-03-24] MEDS: FUROSEMIDE 100 MG in DEXTROSE 5% 90 ML IV SCH ×2 (11:19→20:11)
[2021-03-24] MEDS: SENNOSIDES 8.8 MG/5 ML UDC PO SCH ×2 (12:38→21:15)
[2021-03-24] MEDS: DOCUSATE SODIUM SYRUP 100 MG/10 ML UDC PO SCH ×2 (12:38→21:12)
[2021-03-24] MEDS: PEPTAMEN INTENSE VHP 1.0 CAL 1,000 ML BAG GT SCH (12:40)
[2021-03-24] MEDS: POLYETHYLENE (MIRALAX) 17 GM PACK PO SCH (12:40)
--- NOTE | 2021-03-24 14:10 | Procedure Note ---
Procedure Note Date of Service March 24, 2021 Note ARTERIAL LINE PROCEDURE NOTE: Procedure: Arterial Line Placement Provider: Alberto Colunga MD Indication: Monitoring on Pressors Anesthesia: No local anesthesia. Patient is sedated on the ventilator Procedure was emergent. Patient unable to provide consent due to being intubated sedated paralyzed on the ventilator. No family immediately available A time-out was completed verifying correct patient, procedure, site, positioni ng, and implant(s) or special equipment if applicable. Allens test was performed to ensure adequate perfusion. Patients right wrist was prepped and draped in the usual sterile fashion. An initial attempt was made to pass the catheter under tactile guidance however the patient's body habitus and peripheral edema made this difficult therefore we transition to ultrasound guidance. Ultrasound guidance was used to aid needle placement. A 20g Arrow arterial line was introduced into the right radial artery. Catheter was threaded, and the needle was removed with appropriate blood return. Good wave form was observed. The patient tolerated the procedure well. Blood Loss: Minimal Complications: None Coding CPT Codes Tubes, Drains, and Vasc Access - Tubes, Drains, and Vasc Access: [id number] Insertion Catheter, Artery ([id number]) [facility] [place] Procedure Codes (Charges) Tubes, Drains, and Vasc Access Procedure 1: Tubes, Drains, and Vasc Access: [id number] Insertion Catheter, Artery
[2021-03-24 14:50] LABS: Partial Thromboplastin Ratio 1.7; Partial Thromboplastin Time 44.9 Seconds (21.0-31.0)
[2021-03-24] MEDS: ERYTHROMYCIN 250 MG in SODIUM CHLORIDE 0.9% 250 ML IV SCH ×2 (14:57→21:11)
[2021-03-24] MEDS: fentaNYL citrate 2,500 MCG/250 ML BAG IV SCH (14:57)
--- NOTE | 2021-03-24 15:32 | Hospitalist Progress Note ---
Date of Service March 24, 2021 Assessment & Plan (1) Acute hypoxemic respiratory failure: Plan: Extensive right-sided pulmonary embolism. CTA did show extensive right-sided pulmonary embolism no echocardiogram was available to assess RV strain The case discussed with air traffic controller center in [place] Dr. Jacques and was not advised for any TPN given the hemodynamic stability and the patient has been under waiting list as there is no bed in ICU The case was discussed with air traffic controller center Dr. Resendiz in [facility] and also Dr. Souza the zoology technical officer who decided to go ahead and give TPA for this patient and heparin. The patient received TPA and followed by intravenous heparin. Status post intubation on 03/17/2021 and remains sedated Repeat CAT scan did not show any massive embolism but showed continued progressive pneumonia secondary to COVID-19 infection. Patient received systemic thrombolysis. Remains on heparin infusion. The air traffic controller center has been trying to get her into ECMO therapy at [facility]-ECMO therapy is denied Remains on Versed/fentanyl. Continue aggressive diuresis. Want to try inhaled epoprostenol. Secondary to severe COVID-19 pneumonia Did not receive any vaccination for COVID-19 Continue with dexamethasone on admission and finished course of remdesivir. Appreciate pulmonary input and recommendation. Baricitinib has been stopped. C/w decadron and lasix. Repeat CTA did show progression of the pneumonia. 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 Plan to start prokinetic to help with motility. DVT prophylaxis per Lovenox subcu Received TPA and now on Heparin Full code. Admission and Anticipated Discharge Date Admission Date: March 10, 2021 Subjective Patient remains intubated/sedated. Have been having episodes of desaturations overnight. Review of Systems Review of Systems: Unobtainable due to endotracheal tube Physical Exam Physical Exam: General: Mechanically ventilated HENT: NCAT, MMM CVS: Bradycardic Resp: b/l good breath sounds Abdomen: Soft, ND/ Extremities: No c/c/e Neuro: Patient remains ventilated Skin: warm and dry, no rashes/lesions/errythema MSK: no joint swelling/erythema Aldridge catheter in place. Results & Data Results & Data ([facility]) Vital Signs (Past 12 Hours) Vital Signs Temp Pulse Resp Pulse Ox 03/24/21 14:42 59 L 32 H 93 03/24/21 10:32 62 30 H 93 03/24/21 08:12 69 25 H 93 03/24/21 08:00 74 03/24/21 06:00 38.1 C H 72 91 03/24/21 05:00 38.2 C H 74 91 03/24/21 04:00 38.2 C H 75 88 L
[2021-03-24] MEDS: EPOPROSTENOL SODIUM (GLYCINE) 1.5 MG/5 ML INH PRN (15:48)
[2021-03-24] MEDS: MIDAZOLAM HCL 125 MG/250 ML BAG IV SCH ×3 (16:11→22:57)
[2021-03-24 16:26] LABS: iSTAT Allen Test Pass; iSTAT Arterial Blood Gas HCO3 44 meg/L (19-24); iSTAT Arterial Blood Gas pCO2 87 mmHg (35-46); iSTAT Arterial Blood Gas pH 7.31 (7.35-7.45); iSTAT Arterial Blood Gas pO2 69 mmHg (80-95); iSTAT Carbon Dioxide > 40 mmol/L (24-31); iSTAT FiO2 100 %; iSTAT Site R Brachial
[2021-03-24 17:45] LABS: iSTAT Arterial Blood Gas HCO3 43 meg/L (19-24); iSTAT Arterial Blood Gas pCO2 69 mmHg (35-46); iSTAT Arterial Blood Gas pO2 92 mmHg (80-95); iSTAT Carbon Dioxide > 40 mmol/L (24-31); iSTAT FiO2 100 %; iSTAT Site Art Line
[2021-03-24 19:00] LABS: BUN Creatinine Ratio 24.7 (10-20); Calcium 8.8 mg/dl (8.5-10.1); Creatinine Clr Calc Pharmacy 162.5 ml/min; Est GFR (African American) 131.1 ml/min; Est GFR (Non-African American) 113.1 ml/min; Potassium 2.8 mmol/L (3.5-5.1)
[2021-03-24] MEDS: MAGNESIUM SULFATE / D5W 1 GM/100 ML BAG IV SCH ×2 (19:50→21:03)
[2021-03-24] MEDS: POTASSIUM CHLORIDE / WTR 20 MEQ/100 ML PLCT IV SCH ×3 (20:06→23:26)
[2021-03-24 22:10] LABS: Partial Thromboplastin Ratio 1.6; Partial Thromboplastin Time 41.2 Seconds (21.0-31.0)
[2021-03-25] MEDS: HEPARIN SODIUM/DEXTROSE 25,000 UNITS/500 ML BAG IV SCH ×4 (00:01→22:46)
[2021-03-25] MEDS: INSULIN ASPART 100 UNITS/ML 3 ML PEN SC SCH ×6 (00:02→19:36)
[2021-03-25] MEDS: propofoL 1,000 MG/100 ML VIAL IV SCH ×10 (00:05→22:00)
[2021-03-25] MEDS: fentaNYL citrate 2,500 MCG/250 ML BAG IV SCH ×2 (00:55→14:28)
[2021-03-25 01:27] LABS: iSTAT Arterial Blood Gas HCO3 46 meg/L (19-24); iSTAT Arterial Blood Gas pCO2 70 mmHg (35-46); iSTAT Arterial Blood Gas pH 7.42 (7.35-7.45); iSTAT Arterial Blood Gas pO2 54 mmHg (80-95); iSTAT Carbon Dioxide > 40 mmol/L (24-31); iSTAT FiO2 90 %; iSTAT Site Art Line
[2021-03-25] MEDS: POTASSIUM CHLORIDE / WTR 20 MEQ/100 ML PLCT IV SCH ×7 (01:39→21:26)
[2021-03-25] MEDS: ERYTHROMYCIN 250 MG in SODIUM CHLORIDE 0.9% 250 ML IV SCH (03:45)
[2021-03-25] MEDS: FUROSEMIDE 100 MG in DEXTROSE 5% 90 ML IV SCH ×3 (04:16→18:11)
[2021-03-25] MEDS ORDERED: VECURONIUM BROMIDE 10 MG VIAL IV STA ×3 (04:29→16:00)
[2021-03-25] MEDS: EPOPROSTENOL SODIUM (GLYCINE) 1.5 MG/5 ML INH PRN (04:45)
[2021-03-25 05:49] LABS: iSTAT Arterial Blood Gas HCO3 47 meg/L (19-24); iSTAT Arterial Blood Gas pCO2 73 mmHg (35-46); iSTAT Arterial Blood Gas pH 7.42 (7.35-7.45); iSTAT Arterial Blood Gas pO2 72 mmHg (80-95); iSTAT Carbon Dioxide > 40 mmol/L (24-31); iSTAT FiO2 100 %; iSTAT Site Art Line
[2021-03-25 05:54] LABS: Basophils # (auto) 0.02 K/uL (0-0.2); Basophils % (auto) 0.1 %; Eosinophils # (auto) 0.15 K/uL (0-0.5); Eosinophils % (auto) 1.1 %; Hematocrit (blood only) 32.3 % (37-47); Hemoglobin 9.9 g/dL (12.0-16.0); Immature Granulocytes % (auto) 0.7 %; Lymphocytes # (auto) 1.01 K/uL (1.2-3.4); Lymphocytes % (auto) 7.4 %; Mean Corpuscular Hemoglobin 25.8 pg (25-34); Mean Corpuscular Hgb Conc 30.7 g/dL (32-36); Mean Corpuscular Volume 84.3 fL (80-100); Mean Platelet Volume 8.8 fL (7.4-10.4); Monocytes # (auto) 1.06 K/uL (0.11-0.59); Monocytes % (auto) 7.8 %; Neutrophils # (auto) 11.31 K/uL (1.4-6.5); Neutrophils % (auto) 82.9 %; Platelet Count 324 K/uL (130-400); RDW Coefficient of Variation 16.7 % (11.5-14.5); RDW Standard Deviation 50.5 fL (36.4-46.3); Red Blood Count 3.83 M/uL (4.2-5.4); White Blood Count 13.65 K/uL (4.8-10.8)
[2021-03-25 06:03] LABS: Partial Thromboplastin Ratio 1.5; Partial Thromboplastin Time 40.7 Seconds (21.0-31.0)
[2021-03-25 06:33] LABS: BUN Creatinine Ratio 19.7 (10-20); Calcium 8.8 mg/dl (8.5-10.1); Creatinine Clr Calc Pharmacy 151.5 ml/min; Est GFR (Non-African American) 109.6 ml/min; Magnesium 1.9 mg/dl (1.8-2.4); Potassium 3.1 mmol/L (3.5-5.1)
[2021-03-25] MEDS: NOREPINEPHRINE/D5W 8 MG/508 ML BAG IV SCH (07:36)
--- NOTE | 2021-03-25 07:42 | XRay Report ---
XR chest 1V portable HISTORY: Respiratory failure. COMPARISON: Chest 03/23/2021. FINDINGS: Lines and tubes remain unchanged in position with the endotracheal tube terminates 3.6 cm f rom the yosef. No pneumothorax. No pleural effusions. The heart remains mildly enlarged. Diffuse mitch ateral airspace opacities persist. IMPRESSION: 1. Satisfactory support line placement. 2. Diffuse bilateral airspace opacities persist. ACT 112: Negative or not required by law. Electronically signed by: Ad Mancini M.D. 03/25/2021 7:41 AM
[2021-03-25] MEDS: MAGNESIUM SULFATE / D5W 1 GM/100 ML BAG IV SCH ×4 (07:53→20:50)
[2021-03-25] MEDS: SUCRALFATE 1 GM TAB PO SCH ×4 (08:50→21:31)
[2021-03-25] MEDS: INSULIN GLARGINE SOLOSTAR 100 UNITS/ML 3 ML PEN SC SCH ×2 (08:51→19:37)
[2021-03-25] MEDS: POTASSIUM CHLORIDE 20 MEQ/15 ML UDC PO SCH ×2 (08:56→21:29)
[2021-03-25] MEDS: FAMOTIDINE 40 MG TABLET PO SCH (08:56)
[2021-03-25] MEDS: DOCUSATE SODIUM SYRUP 100 MG/10 ML UDC PO SCH ×2 (08:56→21:28)
[2021-03-25] MEDS: ESCITALOPRAM OXALATE 10 MG TAB PO SCH (08:56)
[2021-03-25] MEDS: buPROPion HCl 75 MG TABLET PO SCH ×2 (08:56→21:28)
[2021-03-25] MEDS: SENNOSIDES 8.8 MG/5 ML UDC PO SCH ×2 (08:57→21:30)
[2021-03-25] MEDS: MAGNESIUM OXIDE 400 MG TAB PO SCH ×2 (08:57→21:28)
[2021-03-25] MEDS: oxyCODONE HCL SOLN 5 MG/5 ML UDC PO SCH ×2 (08:59→21:29)
[2021-03-25] MEDS: clonazePAM 0.5 MG TAB PO SCH ×2 (09:00→21:28)
[2021-03-25] MEDS: POLYETHYLENE (MIRALAX) 17 GM PACK PO SCH (09:00)
[2021-03-25] MEDS ORDERED: VANCOMYCIN HCL 2,750 MG in SODIUM CHLORIDE 0.9% 500 ML IV STA (10:15)
[2021-03-25] MEDS ORDERED: Nursing to Pharmacy Communication SCH ×3 (10:30→12:00)
[2021-03-25] MEDS ORDERED: METOCLOPRAMIDE HCL INJ 5 MG/ML 2 ML VIAL IV ONE (10:30)
[2021-03-25] MEDS ORDERED: cefTRIAXone SODIUM 2,000 MG in DEXTROSE 5% 50 ML IV SCH (10:30)
[2021-03-25] MEDS ORDERED: METHYLNALTREXONE BROMIDE 12 MG/0.6 ML VIAL SQ ONE (10:45)
[2021-03-25] MEDS: MIDAZOLAM HCL 125 MG/250 ML BAG IV SCH (11:45)
[2021-03-25 12:07] LABS: iSTAT Arterial Blood Gas HCO3 49 meg/L (19-24); iSTAT Arterial Blood Gas pCO2 82 mmHg (35-46); iSTAT Arterial Blood Gas pH 7.38 (7.35-7.45); iSTAT Arterial Blood Gas pO2 84 mmHg (80-95); iSTAT Carbon Dioxide > 50 mmol/L (24-31); iSTAT FiO2 100 %; iSTAT Site Art Line
[2021-03-25 13:09] LABS: Partial Thromboplastin Ratio 1.7; Partial Thromboplastin Time 44.7 Seconds (21.0-31.0)
[2021-03-25] MEDS: PEPTAMEN INTENSE VHP 1.0 CAL 1,000 ML BAG GT SCH (13:35)
[2021-03-25] MEDS ORDERED: VECURONIUM BROMIDE 10 MG VIAL IV ONE (13:49)
--- NOTE | 2021-03-25 14:44 | Critical Care Progress Note ---
Date of Service March 25, 2021 Assessment & Plan (1) Pneumonia due to COVID-19 virus: (2) Acute hypoxemic respiratory failure: (3) Pulmonary embolism: (4) Morbid obesity: Plan: Reason Critically Ill: Leigh Carballo is a 35 year old female w/ PMHx of DM, anxiety/depression, rheumatoid arthritis, obesity, distant 2.5 pack yr hx tobacco who presents w/ covid pneumonia and worsened hypoxemic respiratory failure due to pulmonary embolism. She has received tPA. Patient was intubated 03/17/21 for impending resp failure. 24-hour events: Over the last 24 hours the patient has had a isi course. She has required several rounds of paralytics. We attempted inhaled epoprostenol with no significant improvement in her oxygenation and will actually have had increase her PEEP up to 20. She remains on low-dose pressors. She has been on an aggressive Lasix drip and did diuresis significantly without significant improvement in her oxygenation her chest x-ray. Recommendations: Neuro -currently sedated on Versed and fentanyl. She is day 8 mechanical ventilation. We will continue low-dose oral clonazepam and OxyContin to try and wean fentanyl and Versed. On Lexapro and BuSpar. Continue intermittent paralytics as needed. Blood pressure is too soft to consider Precedex. Cardiac -suspect hypotension related to analgesia agents. Continue low-dose norepinephrine infusion Respiratory -acute on chronic hypoxemic and hypercarbic respiratory failure. She remains with elevated PCO2 despite her current vent settings. She has fairly diffuse disease and has not responded favorably to proning in the past so I do not think this is an option. She is already been refused to separate facilities for extracorporeal membrane oxygenation. Recruitment maneuvers have not offered any benefit and inverse ratio ventilation resulted in clinical deterioration. She failed inhaled epoprostenol. At this point in time I not sure that this is a reversible condition. She is already on high-dose steroids which will be continued. I am not sure there is much to add by alternative ventilator strategies. Despite our best efforts, her peak and plateau pressures have been maintained above 40. Is unclear what her transpulmonary pressures are however I suspect they are quite high. No evidence of barotrauma or pneumothorax as of yet but the patient is certainly at risk. GI -tube feeds at trophic. No response to IV erythromycin. We will pursue a trial of oral naltrexone and Reglan. pepcid 40 IV qam. No evidence of obstruction on KUB RENAL/LYTES - on ICU electrolyte replacement protocol. Diuresed well over the last 24 hours. Will back Lasix drip down to 5 mg an hour for the next 24 hours and see how we do - Aldridge. Strict Is/Os. ENDO - ICU hyperglycemia protocol. HEME -mild anemia. No evidence of acute active ongoing bleeding. No indication for transfusion currently. Continue anticoagulation in the form of a heparin drip. At some point will need to transition to oral anticoagulants. Anticipate at least 3 to 6 months of anticoagulation although could make a case for lifelong anticoagulation given her morbid obesity ID -patient persistently febrile. Blood cultures 1 out of 2 gram-positive cocci in clusters. Urine culture showing gram-negative rods. Sputum culture with gram-positive cocci on the Gram stain but no growth to date. Start vancomycin and Rocephin now pending culture results. May consider changing lines out depending on speciation of organisms and clinical response. Follow fever curve and white blood cell count. LINES/IV ACCESS - PIVs intact. + LIJ central venous catheter. DVT PROPHYLAXIS - SCDs. Heparin drip, therapeutic code: full dispo: continue ICU status. Discussed w/ Chey and Roge regarding eval for ecmo: Not a candidate Patient remains critically ill at this point time with multiorgan system dysfunction/failure. She is on life support. Significant probability of clinical deterioration and/or . Total of 84 minutes in critical care time was spent evaluation management and stabilization of this patient including discussion with bedside ICU nurse and on multidisciplinary rounds. I updated the patient's yesterday and again today. I advised him that we are doing everything we can to try and support oxygenation however despite our best efforts, we are currently only able to get her oxygen saturation in the mid 80s. There are no other avenues available to try and improve her oxygenation and if she develops multiorgan system failure, I do not think this would be a survivable illness. I briefly broached the topic of CODE STATUS. Given the severity of her illness and statistical reports showing universally poor outcomes in this demographic of patient who suffer cardiac arrest, I would favor transitioning her to no compressions and no CPR. The patient's is taking it under advisement wishes to discuss with the patient's father and sister. I have asked case management to try and coordinate care conference. If the patient does not show significant improvement in her oxygenation status over the next 24 hours, I am not sure the situation would be salvageable. Admission and Anticipated Discharge Date Admission Date: March 10, 2021 Subjective sedated, intubated and paralyzed. Review of Systems Review of Systems: Unobtainable due to endotracheal tube Physical Exam Physical Exam: Remains sedated on ventilator Constitutional: well developed, well nourished, + ill appearing and + obese Eyes: PERRL, conjunctivae normal, anicteric sclerae Neck: trachea midline, no thyromegaly Respiratory: + respiratory distress Auscultation: + diminished lung sounds and + crackles (At the bases) Cardiovascular: Rate/Rhythm: regular rate and regular rhythm; not tachycardic Heart Sounds: normal S1 and normal S2; no murmur Extremities: + edema (Trace edema bilaterally) Gastrointestinal (Abdomen): Inspection/Auscultation: normal bowel sounds; abdomen not distended Percussion/Palpation: abdomen soft; abdomen nontender Lymphatic: no cervical or axillary lymphadenopathy Results & Data Results & Data ([facility]) Vital Signs (Past 12 Hours) Vital Signs Temp Pulse Resp BP Pulse Ox 03/25/21 13:15 74 32 H 110/59 L 91 03/25/21 11:54 73 32 H 118/56 L 91 03/25/21 11:33 32 H 03/25/21 11:20 71 32 H 110/54 L 91 03/25/21 10:20 66 32 H 110/50 L 88 L 03/25/21 09:15 67 32 H 112/50 L 89 L 03/25/21 08:09 62 32 H 102/43 L 89 L 03/25/21 07:18 68 32 H 89 L 03/25/21 07:10 68 32 H 104/47 L 89 L 03/25/21 06:00 37.2 C 68 118/61 86 L 03/25/21 05:57 68 32 H 115/47 L 92 03/25/21 05:30 37.3 C 67 121/65 92 03/25/21 05:16 69 32 H 122/53 L 92 03/25/21 05:00 37.3 C 66 125/65 93 03/25/21 04:30 37.4 C 65 32 H 120/51 L 93 03/25/21 04:00 37.4 C 65 118/64 92 03/25/21 03:30 37.4 C 64 114/62 92 03/25/21 03:17 64 32 H 128/52 L 92 03/25/21 03:00 37.5 C 64 118/62 91 Critical Care Results & Data Vital Signs (Past 12 Hours) Vital Signs Temp Pulse Resp BP Pulse Ox 03/25/21 13:15 74 32 H 110/59 L 91 03/25/21 11:54 73 32 H 118/56 L 91 03/25/21 11:33 32 H 03/25/21 11:20 71 32 H 110/54 L 91 03/25/21 10:20 66 32 H 110/50 L 88 L 03/25/21 09:15 67 32 H 112/50 L 89 L 03/25/21 08:09 62 32 H 102/43 L 89 L 03/25/21 07:18 68 32 H 89 L 03/25/21 07:10 68 32 H 104/47 L 89 L 03/25/21 06:00 37.2 C 68 118/61 86 L 03/25/21 05:57 68 32 H 115/47 L 92 03/25/21 05:30 37.3 C 67 121/65 92 03/25/21 05:16 69 32 H 122/53 L 92 03/25/21 05:00 37.3 C 66 125/65 93 03/25/21 04:30 37.4 C 65 32 H 120/51 L 93 03/25/21 04:00 37.4 C 65 118/64 92 03/25/21 03:30 37.4 C 64 114/62 92 03/25/21 03:17 64 32 H 128/52 L 92 03/25/21 03:00 37.5 C 64 118/62 91 Lab & Micro Results (Past 24 Hours) RBC 3.83 M/uL (4.2-5.4) L 03/25/21 WBC 13.65 K/uL (4.8-10.8) H 03/25/21 Hgb 9.9 g/dL (12.0-16.0) L 03/25/21 Hct 32.3 % (37-47) L 03/25/21 MCV 84.3 fL (80-100) 03/25/21 MCH 25.8 pg (25-34) 03/25/21 MCHC 30.7 g/dL (32-36) L 03/25/21 RDW Standard Deviation 50.5 fL (36.4-46.3) H 03/25/21 RDW Coefficient of Variation 16.7 % (11.5-14.5) H 03/25/21 Plt Count 324 K/uL (130-400) 03/25/21 MPV 8.8 fL (7.4-10.4) 03/25/21 Neutrophils (%) (Auto) 82.9 % 03/25/21 Lymphocytes (%) (Auto) 7.4 % 03/25/21 Monocytes # (Auto) 1.06 K/uL (0.11-0.59) H 03/25/21 Eosinophils # (Auto) 0.15 K/uL (0-0.5) 03/25/21 Immature Granulocyte % (Auto) 0.7 % 03/25/21 Neutrophils # (Auto) 11.31 K/uL (1.4-6.5) H 03/25/21 Lymphocytes # (Auto) 1.01 K/uL (1.2-3.4) L 03/25/21 Monocytes # (Auto) 1.06 K/uL (0.11-0.59) H 03/25/21 Eosinophils # (Auto) 0.15 K/uL (0-0.5) 03/25/21 Basophils # (Auto) 0.02 K/uL (0-0.2) 03/25/21 Immature Granulocyte # (Auto) 0.10 K/uL (0.00-0.02) H 03/25/21 Na 138 mmol/L (136-145) 03/25/21 K 3.1 mmol/L (3.5-5.1) L 03/25/21 Cl 92 mmol/L (98-107) L 03/25/21 CO2 41 mmol/L (21-32) H* 03/25/21 Anion Gap 5.0 (3-11) 03/25/21 BUN 14 mg/dl (7-18) 03/25/21 Creatinine 0.71 mg/dl (0.6-1.2) 03/25/21 Estimated GFR ( Amer) 127.0 ml/min 03/25/21 Estimated GFR (Non-Af Amer) 109.6 ml/min 03/25/21 BUN/Creatinine Ratio 19.7 (10-20) 03/25/21 Glu 150 mg/dl (70-99) H 03/25/21 Ca 8.8 mg/dl (8.5-10.1) 03/25/21 Mg 1.9 mg/dl (1.8-2.4) 03/25/21 05:30 03/25/21 Calcium Level 8.8 mg/dl (8.5-10.1) 03/25/21 05:30 03/25/21 Howard Test NA 03/25/21 11:54 03/25/21 Microbiology 03/24/21 13:19 Gram Stain - Final Sputum,Vent Suction Sputum Culture - Preliminary Light normal kwaku present, final report to follow. 03/24/21 18:09 Urine Culture - Preliminary Urine,Indwelling Cath Gram negative bacilli 03/24/21 12:03 Aerobic Blood Culture - Preliminary Blood No growth in Aerobic bottle after 24 hours. 03/24/21 10:33 Aerobic Blood Culture - Preliminary Blood Gram positive cocci clusters Anaerobic Blood Culture - Preliminary Gram positive cocci clusters Diagnostic Findings (Past 24 Hours) Chest X-Ray 03/25/21 07:00 XR chest 1V portable HISTORY: Respiratory failure. COMPARISON: Chest 03/23/2021. FINDINGS: Lines and tubes remain unchanged in position with the endotracheal tube terminates 3.6 cm from the yosef. No pneumothorax. No pleural effusions. The heart remains mildly enlarged. Diffuse bilateral airspace opacities persist. IMPRESSION: 1. Satisfactory support line placement. 2. Diffuse bilateral airspace opacities persist. ACT 112: Negative or not required by law. Electronically signed by: Ad Mancini M.D. 03/25/2021 7:41 AM I & O Totals 24 Hours 03/24/21 03/25/21 03/26/21 06:59 06:59 06:59 Intake Total 2365.725 / 2365.725 5639.362 / 5639.362 1364.733 / 1364.733 Output Total 2215 / 2215 6900 / 6900 1150 / 1150 Balance 150.725 / 150.725 -1260.638 / -1260.638 214.733 / 214.733 Cumulative 03/09/21 16:38 thru 03/25/21 14:16 Intake Total 98483.624 Output Total 70529 Balance 2835.624 RT Ventilator Mngmt (Last Documented) Ventilator Ordered Settings Ventilator Support Mode Assist Control 03/25/21 11:33 Respiratory Rate 32 03/25/21 13:15 Ventilator Tidal Volume 300 03/25/21 11:33 Setting Minute Ventilation 10.2 03/25/21 10:20 Positive End Expiratory 20 03/25/21 13:15 Pressure Fraction of Inspired Oxygen 100 03/25/21 13:15 Peak Inspiratory Flow 30 03/24/21 22:11 Machine Comment all changes made by 03/24/21 14:42 Ventilator - PT Measurements Respiratory Rate 32 Exhaled Tidal Volume 320 Minute Ventilation 10.2 Peak Inspiratory Airway 46 Pressure Plateau Pressure 43 Respiratory Cycle Inspiratory: 1:1.1 Expiratory Ratio Inspiratory Phase Time 0.9 End-Tidal CO2 54 Static Lung Compliance 13.91 Dynamic Lung Compliance 12.31 Normal Static Lung Compliance 42.00 Patient Measurements Comment flowlan started on pt per request Coding Level of Care Code Critical Care 1st 30-74 mins Diagnoses Pneumonia due to COVID-19 virus U07.1; J12.82 Acute hypoxemic respiratory failure J96.01 Pulmonary embolism I26.99 Morbid obesity E66.01 Time Spent (min) 85 Comment 85 minutes critical care time, please code [id number] and 10182.
--- NOTE | 2021-03-25 16:20 | Hospitalist Progress Note ---
Date of Service March 25, 2021 Assessment & Plan (1) Acute hypoxemic respiratory failure: Plan: Extensive right-sided pulmonary embolism. CTA did show extensive right-sided pulmonary embolism no echocardiogram was available to assess RV strain The case discussed with practice clinician in [place] Dr. Jacques and was not advised for any TPN given the hemodynamic stability and the patient has been under waiting list as there is no bed in ICU The case was discussed with practice clinician Dr. Resendiz in [facility] and also Dr. Souza the university relations recruiter who decided to go ahead and give TPA for this patient and heparin. The patient received TPA and followed by intravenous heparin. Status post intubation on 03/17/2021 and remains sedated Repeat CAT scan did not show any massive embolism but showed continued progressive pneumonia secondary to COVID-19 infection. Patient received systemic thrombolysis. Remains on heparin infusion. The practice clinician has been trying to get her into ECMO therapy at [facility]-ECMO therapy is denied Remains sedated and condition has been deteriorating Continue current management as per practice clinician Secondary to severe COVID-19 pneumonia Did not receive any vaccination for COVID-19 Continue with dexamethasone on admission and finished course of remdesivir. Appreciate pulmonary input and recommendation. Baricitinib has been stopped. C/w decadron and lasix. Repeat CTA did show progression of the pneumonia. Finished the course of dexamethasone, remdesivir and baricitinib As above H/O Hypertension Lisinopril is on hold H/O Anxiety/mood disorder: Continue her medications through the NG tube H/O DM2: Hold [employer] oral medications, well-controlled as of recent hemoglobin A1c of 5.9 J une 2020 Basal insulin, ISS BG goal 1 10-1 40, carb count coverage, update hemoglobin A1c-6.3 as of 03/09/2021 Nutrition is maintained through NGt feeding -Tube feeds have been on hold given high residuals. Plan to start prokinetic to help with motility. DVT prophylaxis per Lovenox subcu Received TPA and now on Heparin Full code. Admission and Anticipated Discharge Date Admission Date: March 10, 2021 Subjective 03/11/2021 The patient was seen and examined in medical telemetry unit She has been requiring high flow oxygen to maintain saturation and received remdesivir yesterday Feels shortness of breath with minimal exertion but better at rest 03/12/2029 The patient was seen and examined in medical telemetry unit She has been requiring more oxygen to maintain saturation She is complying with prone positioning 03/13/2021 The patient was seen and examined in medical telemetry unit and in the Covid room Her condition has not improved and is still requiring 40 L of oxygen with 100% FiO2 to maintain saturation 03/14/2021 The patient was seen and examined in medical telemetry unit and in the Covid room She has been getting any better and requiring high flow oxygen to maintain saturation We will sought advice from university relations recruiter 03/15/2021 The patient was seen and examined in telemetry unit in Covid room She remains stable and is still requiring 4 L of oxygen to maintain saturation Clinically she feels a little bit better 03/16/2021 The patient was seen and examined in telemetry unit and in the Covid room She remains stable and has been requiring 40 L of oxygen with 100% FiO2 to maintain saturation As her condition has not been improving for the last 2 or 3 days CTA was ordered to rule out pulmonary embolism She did not have any chest pain, cough or hemoptysis 03/17/2021 The patient was seen and examined in telemetry unit and in the Covid room She is being intubated this morning 03/20/2021 The patient was seen and examined in telemetry unit and in the Covid room She remains intubated and the condition has not been getting any better The practice clinician is trying to get her into ECMO therapy in [place] 03/21/2021 The patient was seen and examined in telemetry unit and in the Covid room She remains sedated and intubated 03/22/2021 The patient was seen and examined in telemetry unit She remains intubated and sedated and no significant events happened last night 03/25/2021 The patient was seen and examined in ICU Remains intubated and the condition has been deteriorating Review of Systems Review of Systems: Unobtainable due to endotracheal tube Physical Exam Physical Exam: Remains sedated on ventilator Constitutional: well developed, well nourished, + ill appearing and + obese Eyes: PERRL, conjunctivae normal, anicteric sclerae ENMT: external ear and nose normal, oropharynx normal Neck: trachea midline, no thyromegaly Respiratory: + respiratory distress Auscultation: + diminished lung sounds and + crackles (At the bases) Cardiovascular: Rate/Rhythm: regular rate and regular rhythm; not tachycardic Heart Sounds: normal S1 and normal S2; no murmur Extremities: + edema (Trace edema bilaterally) Gastrointestinal (Abdomen): Inspection/Auscultation: normal bowel sounds; abdomen not distended Percussion/Palpation: abdomen soft; abdomen nontender Neurologic: Remains sedated Lymphatic: no cervical or axillary lymphadenopathy Results & Data Results & Data ([facility]) Vital Signs (Past 12 Hours) Vital Signs Temp Pulse Resp BP Pulse Ox 03/25/21 16:00 57 L 03/25/21 15:05 57 L 32 H 86 L 03/25/21 13:15 74 32 H 110/59 L 91 03/25/21 12:00 74 110/59 L 03/25/21 11:54 73 32 H 118/56 L 91 03/25/21 11:33 32 H 03/25/21 11:20 71 32 H 110/54 L 91 03/25/21 10:20 66 32 H 110/50 L 88 L 03/25/21 09:15 67 32 H 112/50 L 89 L 03/25/21 08:09 62 32 H 102/43 L 89 L 03/25/21 07:18 68 32 H 89 L 03/25/21 07:10 68 32 H 104/47 L 89 L 03/25/21 06:00 37.2 C 68 118/61 86 L 03/25/21 05:57 68 32 H 115/47 L 92 03/25/21 05:30 37.3 C 67 121/65 92 03/25/21 05:16 69 32 H 122/53 L 92 03/25/21 05:00 37.3 C 66 125/65 93 03/25/21 04:30 37.4 C 65 32 H 120/51 L 93 Laboratory Results Short CBC 03/25/21 Range/Units 05:30 WBC 13.65 H (4.8-10.8) K/uL Hgb 9.9 L (12.0-16.0) g/dL Hct 32.3 L (37-47) % Plt Count 324 (130-400) K/uL BMP 03/24/21 03/25/21 18:19 05:30 Sodium 137 138 Potassium 2.8 L D 3.1 L Chloride 92 L 92 L Carbon Dioxide 42 H* 41 H* BUN 17 14 Creatinine 0.67 0.71 Glucose 160 H 150 H Calcium 8.8 8.8 Medications Administered Current Inpatient Medications Acetaminophen (Acetaminophen 325 Mg Tab) 650 mg PO Q4H PRN PRN Reason: Pain or Fever Stop: 04/09/21 03:08 Last Admin: 03/24/21 07:37 Dose: 650 mg Documented by: Albuterol (Albuterol Hfa 8 Gm Inhaler) 2 puffs INH Q2R PRN PRN Reason: sob/wheeze Stop: 04/10/21 00:12 Bupropion HCl (Bupropion Hcl 75 Mg Tablet) 75 mg PO BID [facility] Stop: 04/17/21 20:59 Last Admin: 03/25/21 08:56 Dose: 75 mg Documented by: Buspirone HCl (Buspirone 5 Mg Tab) 10 mg PO QAM [facility] Stop: 04/09/21 08:59 Last Admin: 03/24/21 08:44 Dose: 10 mg Documented by: Clonazepam (Clonazepam 0.5 Mg Tab) 0.5 mg PO BID [facility] Stop: 04/22/21 20:59 Last Admin: 03/25/21 09:00 Dose: 0.5 mg Documented by: Dextrose (Dextrose 50% 50 Ml Syringe) 25 - 50 ml IV UD PRN; Protocol PRN Reason: Hypoglycemia Protocol Stop: 04/09/21 03:08 Last Admin: 03/23/21 04:22 Dose: 25 ml Documented by: Docusate Sodium (Docusate Sodium Syrup 100 Mg/10 Ml Udc) 100 mg PO BID [facility] Stop: 04/23/21 09:44 Last Admin: 03/25/21 08:56 Dose: 100 mg Documented by: Escitalopram Oxalate (Escitalopram Oxalate 10 Mg Tab) 30 mg PO QAM [facility] Stop: 04/09/21 08:59 Last Admin: 03/25/21 08:56 Dose: 30 mg Documented by: Famotidine (Famotidine 40 Mg Tablet) 40 mg PO QAM [facility] Stop: 04/09/21 08:59 Last Admin: 03/25/21 08:56 Dose: 40 mg Documented by: Fentanyl Citrate (Fentanyl Bolus From Bag) 50 mcg IV Q60M PRN PRN Reason: Pain or Agitation Stop: 03/31/21 10:47 Last Admin: 03/21/21 04:24 Dose: 50 mcg Documented by: Glucagon (Glucagon For Inj 1 Mg Vial) 1 mg SQ UD PRN; Protocol PRN Reason: Hypoglycemia Protocol Stop: 04/09/21 03:08 Glucose (Glucose 10 Tabs/Tube) 4 - 8 tabs PO UD PRN; Protocol PRN Reason: Hypoglycemia Protocol Stop: 04/09/21 03:08 Glucose (Glucose 40% Gel 15 Gm Tube) 15 - 30 gm PO UD PRN; Protocol PRN Reason: Hypoglycemia Protocol Stop: 04/09/21 03:08 Heparin Sodium/Dextrose (Heparin Sodium/Dextrose) 25,000 units in 500 mls @ 59 mls/hr IV .Q8H29M ALYSE; Protocol Stop: 04/16/21 01:59 Last Admin: 03/25/21 13:34 Dose: 2,950 units/hr, 59 mls/hr Documented by: Norepinephrine Bitartrate (Levophed/D5w) 8 mg in 508 mls @ 24.232 mls/hr IV .[id number] [facility]; Protocol Stop: 04/17/21 06:44 Last Admin: 03/25/21 07:36 Dose: 0.05 mcg/kg/min, 24.2 mls/hr Documented by: Midazolam HCl (Versed) 125 mg in 250 mls @ 14 mls/hr IV .[id number] [facility]; Protocol Stop: 04/20/21 11:29 Last Admin: 03/25/21 11:45 Dose: 7 mg/hr, 14 mls/hr Documented by: Fentanyl Citrate (Fentanyl Citrate) 2,500 mcg in 250 mls @ 17.5 mls/hr IV .[id number] [facility]; Protocol Stop: 04/06/21 04:44 Last Admin: 03/25/21 14:28 Dose: 200 mcg/hr, 20 mls/hr Documented by: Furosemide 40 mg/ Syringe 4 mls @ 4 mls/min IV Q8 [facility] Stop: 04/22/21 21:59 Last Admin: 03/24/21 06:35 Dose: 4 mls/min Documented by: Furosemide 100 mg/ Dextrose 100 mls @ 5 mls/hr IV .Q20H [facility] Stop: 03/26/21 09:59 Last Infusion: 03/25/21 14:50 Dose: Infused Documented by: Propofol (Diprivan) 1,000 mg in 100 mls @ 39.84 mls/hr IV .Q2H31M [facility]; Protocol Stop: 03/27/21 10:59 Last Admin: 03/25/21 14:29 Dose: 50 mcg/kg/min, 39.8 mls/hr Documented by: Ceftriaxone Sodium 2,000 mg/ (Dextrose) 70 mls @ 140 mls/hr IV DAILY@1000 [facility] Stop: 04/01/21 10:29 Last Infusion: 03/25/21 12:23 Dose: Infused Documented by: Insulin Aspart (Insulin Aspart 100 Units/Ml 3 Ml Pen) 0 units SC Q4 [facility] Stop: 04/17/21 11:59 Last Admin: 03/25/21 13:05 Dose: 1 units Documented by: Insulin Glargine (Insulin Glargine Solostar 100 Units/Ml 3 Ml Pen) 0 units SC BID@0800,2000 [facility]; Protocol Stop: 04/23/21 07:59 Last Admin: 03/25/21 08:51 Dose: 2 units Documented by: Magnesium Oxide (Magnesium Oxide 400 Mg Tab) 400 mg PO BID [facility] Stop: 04/23/21 08:59 Last Admin: 03/25/21 08:57 Dose: 400 mg Documented by: Midazolam HCl (Midazolam Bolus From Bag) 2 mg IV Q60M PRN PRN Reason: Sedation Stop: 04/20/21 11:16 Miscellaneous (Carbohydrates For Hypoglycemia ) 15 - 30 gm PO UD PRN PRN Reason: Hypoglycemia Protocol Stop: 04/09/21 03:08 Miscellaneous Information (Pharmacy Glycemic Mgmt Consult) 1 ea N/A UD PRN PRN Reason: Consult Stop: 04/17/21 09:45 Nutritional Formula (Peptamen Intense Vhp 1.0 Donnell 1,000 Ml Bag) 1,000 ml GT CONT [facility]; Protocol Stop: 04/16/21 12:14 Last Admin: 03/25/21 13:35 Dose: 1,000 ml Documented by: Oxycodone HCl (Oxycodone Hcl Soln 5 Mg/5 Ml Udc) 5 mg PO BID [facility] Stop: 04/06/21 20:59 Last Admin: 03/25/21 08:59 Dose: 5 mg Documented by: Polyethylene Glycol (Polyethylene (Miralax) 17 Gm Pack) 17 gm PO DAILY [facility] Stop: 04/23/21 09:44 Last Admin: 03/25/21 09:00 Dose: 17 gm Documented by: Potassium Chloride (Potassium Chloride 20 Meq/15 Ml Udc) 40 meq PO BID [facility] Stop: 04/23/21 08:59 Last Admin: 03/25/21 08:56 Dose: 40 meq Documented by: Propofol (Propofol Bolus From Bag) 20 mg IV Q5M PRN PRN Reason: Sedation Stop: 03/27/21 10:49 Sennosides (Sennosides 8.8 Mg/5 Ml Udc) 17.6 mg PO BID [facility] Stop: 04/23/21 09:44 Last Admin: 03/25/21 08:57 Dose: 17.6 mg Documented by: Sucralfate (Sucralfate 1 Gm Tab) 1 gm PO ACHS [facility] Stop: 04/09/21 07:29 Last Admin: 03/25/21 13:35 Dose: 1 gm Documented by:
[2021-03-25] MEDS ORDERED: VANCOMYCIN CONSULT ACTIVE PRN (16:32)
[2021-03-25] MEDS ORDERED: CEFEPIME CONSULT ACTIVE PRN (16:34)
--- NOTE | 2021-03-25 17:13 | Pharmacy Report ---
Pharmacy Vanc AUC Short Note - Date of Service March 25, 2021 - Assessment & Plan Assessment 35 year old F receiving vancomycin/cefepime for empiric treatment. Pertinent microbiologic data includes: Pending MRSA Nasal Swab urine culture growing gram neg bacilli, and blood cx growing GPCs in one set. Rapid staph PCR negative for MRSA and staph aureus. Given BMI > 40, will order early level and consider backing off dose empirically due to risk of accumulation. Day # 1 of antimicrobial therapy. Plan Vancomycin * AUC/NASEEM is the preferred PK/PD target for vancomycin * AUC guided dosing is effective and associated with decreased risk of nephrotoxicity compared to traditional trough targets * Trough level of 20.2 mcg/mL is predicted to achieve target AUC/NASEEM of ~650 mg/L.hr and may be associated with a 18 % risk of nephrotoxicity * Loading dose of 2750 administered today @1100am * Initiate dose of 1250 mg IV every 8 hours this evening @ 1830 * Trough or random level ordered for: 03/26/21 @1000 Pharmacy will continue to follow and will adjust dose/frequency as necessary. Thank you.
[2021-03-25 17:46] LABS: BUN Creatinine Ratio 16.4 (10-20); Creatinine Clr Calc Pharmacy 158.2 ml/min; Est GFR (African American) 130.4 ml/min; Est GFR (Non-African American) 112.5 ml/min; Potassium 3.8 mmol/L (3.5-5.1)
[2021-03-25] MEDS: VANCOMYCIN HCL 1,250 MG in SODIUM CHLORIDE 0.9% 250 ML IV SCH (18:10)
[2021-03-25] MEDS: CEFEPIME 2,000 MG in SYRINGE 0 ML IV SCH (18:10)
[2021-03-25] MEDS: VECURONIUM BROMIDE 10 MG VIAL IV PRN ×2 (18:21→23:55)
[2021-03-25 19:57] LABS: Partial Thromboplastin Ratio 1.9
[2021-03-25 19:58] LABS: Partial Thromboplastin Time 49.8 Seconds (21.0-31.0)
[2021-03-26] MEDS: INSULIN ASPART 100 UNITS/ML 3 ML PEN SC SCH ×6 (00:10→20:33)
[2021-03-26] MEDS: CEFEPIME 2,000 MG in SYRINGE 0 ML IV SCH ×2 (00:12→08:38)
[2021-03-26] MEDS: PEPTAMEN INTENSE VHP 1.0 CAL 1,000 ML BAG GT SCH (00:46)
[2021-03-26] MEDS: propofoL 1,000 MG/100 ML VIAL IV SCH ×10 (00:48→23:44)
[2021-03-26] MEDS: VANCOMYCIN HCL 1,250 MG in SODIUM CHLORIDE 0.9% 250 ML IV SCH (02:17)
[2021-03-26] MEDS: fentaNYL citrate 2,500 MCG/250 ML BAG IV SCH ×2 (03:56→15:49)
[2021-03-26] MEDS: NOREPINEPHRINE/D5W 8 MG/508 ML BAG IV SCH (05:01)
[2021-03-26 05:07] LABS: Basophils # (auto) 0.02 K/uL (0-0.2); Basophils % (auto) 0.1 %; Eosinophils # (auto) 0.13 K/uL (0-0.5); Hematocrit (blood only) 31.4 % (37-47); Hemoglobin 9.4 g/dL (12.0-16.0); Immature Granulocytes # (auto) 0.11 K/uL (0.00-0.02); Immature Granulocytes % (auto) 0.8 %; Lymphocytes # (auto) 0.96 K/uL (1.2-3.4); Lymphocytes % (auto) 7.1 %; Mean Corpuscular Hemoglobin 25.6 pg (25-34); Mean Corpuscular Hgb Conc 29.9 g/dL (32-36); Mean Corpuscular Volume 85.6 fL (80-100); Mean Platelet Volume 8.7 fL (7.4-10.4); Monocytes % (auto) 8.2 %; Neutrophils # (auto) 11.15 K/uL (1.4-6.5); Neutrophils % (auto) 82.8 %; Nucleated RBC # (auto) 0.04 K/uL (0-0); Nucleated RBC % (auto) 0.3 %; Platelet Count 303 K/uL (130-400); RDW Coefficient of Variation 16.9 % (11.5-14.5); RDW Standard Deviation 52.6 fL (36.4-46.3); Red Blood Count 3.67 M/uL (4.2-5.4); White Blood Count 13.47 K/uL (4.8-10.8)
[2021-03-26 05:30] LABS: Partial Thromboplastin Ratio 1.8
[2021-03-26 05:31] LABS: Partial Thromboplastin Time 47.3 Seconds (21.0-31.0)
[2021-03-26 05:32] LABS: iSTAT Art Bld Gas pCO2 Correct 84 mmHg (35-46); iSTAT Art Bld Gas pH Corrected 7.366 (7.35-7.45); iSTAT Arterial Blood Gas HCO3 48 meg/L (19-24); iSTAT Arterial Blood Gas pCO2 83 mmHg (35-46); iSTAT Arterial Blood Gas pH 7.37 (7.35-7.45); iSTAT Arterial Blood Gas pO2 90 mmHg (80-95); iSTAT Arterial Blood Gas pO2 C 92; iSTAT Carbon Dioxide > 50 mmol/L (24-31); iSTAT FiO2 100 %; iSTAT Hematocrit 31 % (37-47); iSTAT Hemoglobin 10.5 g/dl (12.0-16.0); iSTAT Potassium 3.8 mmol/L (3.3-5.0); iSTAT Site Art Line; iSTAT Sodium 138 mmol/L (135-144)
[2021-03-26 05:40] LABS: Calcium 8.7 mg/dl (8.5-10.1); Est GFR (African American) 120.8 ml/min; Est GFR (Non-African American) 104.2 ml/min; Potassium 3.8 mmol/L (3.5-5.1)
[2021-03-26] MEDS: VECURONIUM BROMIDE 10 MG VIAL IV PRN ×7 (06:25→23:05)
[2021-03-26] MEDS: HEPARIN SODIUM/DEXTROSE 25,000 UNITS/500 ML BAG IV SCH ×2 (06:42→08:34)
[2021-03-26] MEDS: MIDAZOLAM HCL 125 MG/250 ML BAG IV SCH ×2 (06:43→23:20)
--- NOTE | 2021-03-26 07:20 | XRay Report ---
XR chest 1V portable HISTORY: 35 years-old Female Resp failure acute respiratory failure COMPARISON: Chest radiograph 03/25/2021 TECHNIQUE: Portable AP view of the chest FINDINGS: Endotracheal tube overlies the midline, 3.5 cm superior to the yosef. Left IJ central venous cathete r is unchanged with distal tip in the expected location of the brachiocephalic SVC confluence. Enteri c tube courses below the diaphragm with distal tip outside the [id number]. No pneumothorax. Cardio megaly with extensive bilateral airspace opacities, generally stable from comparison. No large pleura l effusion. No acute fracture. IMPRESSION: 1. Lines and tubes as above. 2. No significant change of the extensive bilateral airspace opacities. ACT 112: Negative or not required by law. The above report was generated using voice recognition software. It may contain grammatical, syntax o r spelling errors. Electronically signed by: Dago De La Rosa M.D. 03/26/2021 7:18 AM
[2021-03-26 07:51] LABS: Magnesium 2.2 mg/dl (1.8-2.4); Phosphorus 5.7 mg/dl (2.5-4.9)
[2021-03-26] MEDS: SUCRALFATE 1 GM TAB PO SCH ×4 (08:27→20:44)
[2021-03-26] MEDS: buPROPion HCl 75 MG TABLET PO SCH (08:27)
[2021-03-26] MEDS: DOCUSATE SODIUM SYRUP 100 MG/10 ML UDC PO SCH ×2 (08:28→20:43)
[2021-03-26] MEDS: busPIRone 5 MG TAB PO SCH (08:28)
[2021-03-26] MEDS: ESCITALOPRAM OXALATE 10 MG TAB PO SCH (08:28)
[2021-03-26] MEDS: FAMOTIDINE 40 MG TABLET PO SCH (08:29)
[2021-03-26] MEDS: SENNOSIDES 8.8 MG/5 ML UDC PO SCH ×2 (08:32→20:44)
[2021-03-26] MEDS: clonazePAM 0.5 MG TAB PO SCH ×2 (08:37→20:42)
[2021-03-26] MEDS: oxyCODONE HCL SOLN 5 MG/5 ML UDC PO SCH ×2 (08:37→20:43)
[2021-03-26] MEDS: POTASSIUM CHLORIDE 20 MEQ/15 ML UDC PO SCH ×2 (08:37→20:44)
[2021-03-26] MEDS: MAGNESIUM OXIDE 400 MG TAB PO SCH ×2 (08:38→20:43)
[2021-03-26] MEDS: POLYETHYLENE (MIRALAX) 17 GM PACK PO SCH (08:39)
[2021-03-26] MEDS: INSULIN GLARGINE SOLOSTAR 100 UNITS/ML 3 ML PEN SC SCH ×2 (08:39→20:34)
[2021-03-26] MEDS ORDERED: ICU PROTOCOL FOR HYPERGLYCEMIA SCH (09:45)
[2021-03-26] MEDS ORDERED: VANCOMYCIN TROUGH ONE (10:00)
[2021-03-26] MEDS ORDERED: METOCLOPRAMIDE HCL 10 MG in SYRINGE 0 ML IV ONE (10:30)
[2021-03-26] MEDS ORDERED: METOCLOPRAMIDE HCL INJ 5 MG/ML 2 ML VIAL IV SCH (10:30)
[2021-03-26] MEDS: FUROSEMIDE 100 MG in DEXTROSE 5% 90 ML IV SCH (10:53)
[2021-03-26] MEDS: DAPTOmycin 525 MG in SYRINGE 0 ML IV SCH (10:53)
[2021-03-26] MEDS: ENOXAPARIN 150 MG/ML SYR SQ SCH ×2 (10:54→22:04)
[2021-03-26] MEDS: MAX Conc 128mcg/mL; 32mg in 250mL IV SCH (10:56)
[2021-03-26 11:30] LABS: iSTAT Art Bld Gas pCO2 Correct 86 mmHg (35-46); iSTAT Art Bld Gas pH Corrected 7.366 (7.35-7.45); iSTAT Arterial Blood Gas HCO3 49 meg/L (19-24); iSTAT Arterial Blood Gas pCO2 85 mmHg (35-46); iSTAT Arterial Blood Gas pH 7.37 (7.35-7.45); iSTAT Arterial Blood Gas pO2 70 mmHg (80-95); iSTAT Arterial Blood Gas pO2 C 71; iSTAT Carbon Dioxide > 50 mmol/L (24-31); iSTAT FiO2 100 %; iSTAT Hematocrit 29 % (37-47); iSTAT Hemoglobin 9.9 g/dl (12.0-16.0); iSTAT Potassium 3.6 mmol/L (3.3-5.0); iSTAT Site Art Line; iSTAT Sodium 138 mmol/L (135-144)
--- NOTE | 2021-03-26 12:06 | Pharmacy Report ---
Pharmacy Glycemic Short Note 2 - Date of Service March 26, 2021 - Glycemic Short BSG Results (Last 24 hours): 03/25/21 03/25/21 03/25/21 13:38 16:16 16:26 Glucose 174 H POC Glucose 164 H 171 H POC Glucose (other) 03/25/21 03/26/21 03/26/21 19:33 00:07 04:04 Glucose POC Glucose POC Glucose (other) 178 H 139 H 137 H 03/26/21 03/26/21 03/26/21 04:45 07:46 11:10 Glucose 140 H POC Glucose POC Glucose (other) 141 H 143 H OUTPATIENT ANTIDIABETIC REGIMEN: * none * A1c = 6.6% 03/18/21 ASSESSMENT: 03/25 * One BSG below goal range after patient received slightly higher dose of Lantus yesterday evening. Will decrease. * Novolog has been at the same parameters >72 hours, however, patient has been requiring/receiving hardly any Novolog. Concern for decrease in BSG's if tubefeeds are able to be titrated up with current parameters due to very low Lantus requirements - will loosen Novolog 03/24 * BSG's remain below goal range for ICU status patient after only 8 units of basal insulin yesterday. Will reduce further (possibly down to 0 units if BSG's remain below 120 mg/dL) and split BID based on BSG 03/23 * Hypoglycemia event this AM with BSG of 64 mg/dL. Etiology likely dual Lantus dose (although low dose at less than 0.1 units/kg) and Novolog coverage while on trickle tubefeeds. * BSG's have ranged 64-135 mg/dL over the last 24 hours. Significant changes required as this patient is ICU status (residing on 2E) therefore goal BSG range is 140-180 mg/dL. * Will stop Novolog coverage for *trickle* feeds, and only cover CHO if rate >= 20 mL/kg * Will reduce Lantus by 20% this AM, and then ongoing starting tomorrow will reduce dose (depending on BSG) and split BID PLAN FOR INPATIENT GLYCEMIC CONTROL: * Basal insulin * Lantus 0 or 3 units SQ BID based on BSG * Bolus insulin * NovoLog per scale Q 4 hrs * Goal Range: Low 110 mg/dL - High 140 mg/dL * Correction Factor: 30 mg/dL/unit * Nutritional / Prandial insulin per carb ratio of 1 unit per 10 grams CHO consumed via continuous tube feedings PLAN FOR DISCHARGE: * Would recommend diet/lifestyle modifications and outpatient follow-up to determine if uptitration of metformin is reasonable
--- NOTE | 2021-03-26 12:59 | Hospitalist Progress Note ---
Date of Service March 26, 2021 Assessment & Plan (1) Acute hypoxemic respiratory failure: Plan: Extensive right-sided pulmonary embolism. CTA did show extensive right-sided pulmonary embolism no echocardiogram was available to assess RV strain The case discussed with excel expert in [place] Dr. Jacques and was not advised for any TPN given the hemodynamic stability and the patient has been under waiting list as there is no bed in ICU The case was discussed with excel expert Dr. Resendiz in [facility] and also Dr. Souza the lead portfolio manager who decided to go ahead and give TPA for this patient and heparin. The patient received TPA and followed by intravenous heparin. Status post intubation on 03/17/2021 and remains sedated Repeat CAT scan did not show any massive embolism but showed continued progressive pneumonia secondary to COVID-19 infection. Patient received systemic thrombolysis. Remains on heparin infusion. The excel expert has been trying to get her into ECMO therapy at [facility]ECMO therapy is denied Remains sedated and condition has been deteriorating Continue current management as per excel expert Conditions has not improved and has been deteriorating The ICU team is meeting with family members for further direction of care Secondary to severe COVID-19 pneumonia Did not receive any vaccination for COVID-19 Continue with dexamethasone on admission and finished course of remdesivir. Appreciate pulmonary input and recommendation. Baricitinib has been stopped. C/w decadron and lasix. Repeat CTA did show progression of the pneumonia. Finished the course of dexamethasone, remdesivir and baricitinib As above H/O Hypertension Lisinopril is on hold H/O Anxiety/mood disorder: Continue her medications through the NG tube H/O DM2: Hold [employer] oral medications, well-controlled as of recent hemoglobin A1c of 5.19 November 2020 Basal insulin, ISS BG goal 1 10-1 40, carb count coverage, update hemoglobin A1c-6.3 as of 03/09/2021 Nutrition is maintained through NGt feeding -Tube feeds have been on hold given high residuals. Plan to start prokinetic to help with motility. DVT prophylaxis per Lovenox subcu Received TPA and now on Heparin Prognosis remains very poor Full code. Admission and Anticipated Discharge Date Admission Date: March 10, 2021 Subjective 03/11/2021 The patient was seen and examined in medical telemetry unit She has been requiring high flow oxygen to maintain saturation and received remdesivir yesterday Feels shortness of breath with minimal exertion but better at rest 03/12/2029 The patient was seen and examined in medical telemetry unit She has been requiring more oxygen to maintain saturation She is complying with prone positioning 03/13/2021 The patient was seen and examined in medical telemetry unit and in the Covid dorcas m Her condition has not improved and is still requiring 40 L of oxygen with 100% FiO2 to maintain saturation 03/14/2021 The [facility] was [facility] She has been getting any better and requiring high flow oxygen to maintain saturation We will sought advice from lead portfolio manager 03/15/2021 The patient was seen and examined in telemetry unit in Covid room She remains stable and is still requiring 4 L of oxygen to maintain saturation Clinically she feels a little bit better 03/16/2021 The patient was seen and examined in telemetry unit and in the Covid room She remains stable and has been requiring 40 L of oxygen with 100% FiO2 to maintain saturation As her condition has not been improving for the last 2 or 3 days CTA was ordered to rule out pulmonary embolism She did not have any chest pain, cough or hemoptysis 03/17/2021 The patient was seen and examined in telemetry unit and in the Covid room She is being intubated this morning 03/20/2021 The patient was seen and examined in telemetry unit and in the Covid room She remains intubated and the condition has not been getting any better The excel expert is trying to get her into ECMO therapy in [place] 03/21/2021 The patient was seen and examined in telemetry unit and in the Covid room She remains sedated and intubated 03/22/2021 The patient was seen and examined in telemetry unit She remains intubated and sedated and no significant events happened last night 03/25/2021 The patient was seen and examined in ICU Remains intubated and the condition has been deteriorating 03/26/2021 The patient was seen and examined in ICU She remains intubated and the condition has not been improved Review of Systems Review of Systems: Unobtainable due to endotracheal tube Physical Exam Physical Exam: Remains sedated on ventilator Constitutional: well developed, well nourished, + ill appearing and + obese Eyes: PERRL, conjunctivae normal, anicteric sclerae ENMT: external ear and nose normal, oropharynx normal Neck: trachea midline, no thyromegaly Respiratory: + respiratory distress Auscultation: + diminished lung sounds and + crackles (At the bases) Cardiovascular: Rate/Rhythm: regular rate and regular rhythm; not tachycardic Heart Sounds: normal S1 and normal S2; no murmur Extremities: + edema (Trace edema bilaterally) Gastrointestinal (Abdomen): Inspection/Auscultation: normal bowel sounds; abdomen not distended Percussion/Palpation: abdomen soft; abdomen nontender Neurologic: Remains sedated on ventilator Lymphatic: no cervical or axillary lymphadenopathy Results & Data Results & Data ([facility]) Vital Signs (Past 12 Hours) Vital Signs Temp Pulse Resp BP Pulse Ox 03/26/21 11:10 79 32 H 91 03/26/21 09:30 37.2 C 83 32 H 72 L 03/26/21 09:00 37.2 C 74 32 H 90 03/26/21 08:30 37.3 C 75 32 H 91 03/26/21 08:23 73 34 H 93 03/26/21 08:00 37.3 C 75 32 H 92 03/26/21 07:58 108/61 03/26/21 07:30 37.4 C 76 32 H 92 03/26/21 07:00 37.3 C 75 32 H 91 03/26/21 06:45 37.3 C 79 32 H 86 L 03/26/21 06:30 37.3 C 68 32 H 79 L 03/26/21 06:15 37.3 C 72 32 H 88 L 03/26/21 06:00 37.3 C 72 32 H 89 L 03/26/21 05:45 37.3 C 70 32 H 88 L 03/26/21 05:30 37.3 C 71 32 H 88 L 03/26/21 05:15 37.3 C 73 32 H 90 03/26/21 05:00 37.3 C 71 32 H 93 03/26/21 04:45 37.3 C 71 32 H 95 03/26/21 04:30 37.2 C 71 32 H 95 03/26/21 04:15 37.2 C 74 32 H 95 03/26/21 04:00 37.2 C 70 32 H 95 03/26/21 03:45 37.3 C 70 32 H 94 03/26/21 03:30 37.3 C 69 32 H 93 03/26/21 03:20 89 33 H 90 03/26/21 03:15 37.3 C 68 32 H 89 L 03/26/21 03:00 37.3 C 71 32 H 95 03/26/21 02:45 37.3 C 72 32 H 95 03/26/21 02:30 37.3 C 70 32 H 95 03/26/21 02:15 37.2 C 69 32 H 95 03/26/21 02:00 37.2 C 70 32 H 95 03/26/21 01:45 37.2 C 72 32 H 95 03/26/21 01:30 37.2 C 71 32 H 95 03/26/21 01:15 37.2 C 72 32 H 95 03/26/21 01:00 37.2 C 74 32 H 95 Laboratory Results Short CBC 03/26/21 Range/Units 04:45 WBC 13.47 H (4.8-10.8) K/uL Hgb 9.4 L (12.0-16.0) g/dL Hct 31.4 L (37-47) % Plt Count 303 (130-400) K/uL BMP 03/25/21 03/26/21 16:26 04:45 Sodium 138 137 Potassium 3.8 D 3.8 Chloride 91 L 93 L Carbon Dioxide 39 H 42 H* BUN 11 12 Creatinine 0.68 0.74 Glucose 174 H 140 H Calcium 9.0 8.7 Medications Administered Current Inpatient Medications Acetaminophen (Acetaminophen 325 Mg Tab) 650 mg PO Q4H PRN PRN Reason: Pain or Fever Stop: 04/09/21 03:08 Last Admin: 03/24/21 07:37 Dose: 650 mg Documented by: Albuterol (Albuterol Hfa 8 Gm Inhaler) 2 puffs INH Q2R PRN PRN Reason: sob/wheeze Stop: 04/10/21 00:12 Bupropion HCl (Bupropion Hcl 75 Mg Tablet) 75 mg PO BID [facility] Stop: 04/17/21 20:59 Last Admin: 03/26/21 08:27 Dose: 75 mg Documented by: Buspirone HCl (Buspirone 5 Mg Tab) 10 mg PO QAM [facility] Stop: 04/09/21 08:59 Last Admin: 03/26/21 08:28 Dose: 10 mg Documented by: Clonazepam (Clonazepam 0.5 Mg Tab) 0.5 mg PO BID [facility] Stop: 04/22/21 20:59 Last Admin: 03/26/21 08:37 Dose: 0.5 mg Documented by: Dextrose (Dextrose 50% 50 Ml Syringe) 25 - 50 ml IV UD PRN; Protocol PRN Reason: Hypoglycemia Protocol Stop: 04/09/21 03:08 Last Admin: 03/23/21 04:22 Dose: 25 ml Documented by: Docusate Sodium (Docusate Sodium Syrup 100 Mg/10 Ml Udc) 100 mg PO BID [facility] Stop: 04/23/21 09:44 Last Admin: 03/26/21 08:28 Dose: 100 mg Documented by: Enoxaparin Sodium (Enoxaparin 150 Mg/Ml Syr) 129 mg SQ Q12 [facility] Stop: 04/25/21 10:29 Last Admin: 03/26/21 10:54 Dose: 129 mg Documented by: Escitalopram Oxalate (Escitalopram Oxalate 10 Mg Tab) 30 mg PO QAM [facility] Stop: 04/09/21 08:59 Last Admin: 03/26/21 08:28 Dose: 30 mg Documented by: Famotidine (Famotidine 40 Mg Tablet) 40 mg PO QAM [facility] Stop: 04/09/21 08:59 Last Admin: 03/26/21 08:29 Dose: 40 mg Documented by: Fentanyl Citrate (Fentanyl Bolus From Bag) 50 mcg IV Q60M PRN PRN Reason: Pain or Agitation Stop: 03/31/21 10:47 Last Admin: 03/21/21 04:24 Dose: 50 mcg Documented by: Glucagon (Glucagon For Inj 1 Mg Vial) 1 mg SQ UD PRN; Protocol PRN Reason: Hypoglycemia Protocol Stop: 04/09/21 03:08 Glucose (Glucose 10 Tabs/Tube) 4 - 8 tabs PO UD PRN; Protocol PRN Reason: Hypoglycemia Protocol Stop: 04/09/21 03:08 Glucose (Glucose 40% Gel 15 Gm Tube) 15 - 30 gm PO UD PRN; Protocol PRN Reason: Hypoglycemia Protocol Stop: 04/09/21 03:08 Midazolam HCl (Versed) 125 mg in 250 mls @ 14 mls/hr IV .[id number] [facility]; Protocol Stop: 04/20/21 11:29 Last Titration: 03/26/21 07:13 Dose: 7 mg/hr, 14 mls/hr Documented by: Fentanyl Citrate (Fentanyl Citrate) 2,500 mcg in 250 mls @ 17.5 mls/hr IV .[id number] [facility]; Protocol Stop: 04/06/21 04:44 Last Titration: 03/26/21 07:13 Dose: 200 mcg/hr, 20 mls/hr Documented by: Furosemide 100 mg/ Dextrose 100 mls @ 5 mls/hr IV .Q20H [facility] Stop: 03/27/21 09:59 Last Admin: 03/26/21 10:53 Dose: 5 mg/hr, 5 mls/hr Documented by: Propofol (Diprivan) 1,000 mg in 100 mls @ 39.84 mls/hr IV .Q2H31M [facility]; Protocol Stop: 03/27/21 10:59 Last Admin: 03/26/21 10:56 Dose: 50 mcg/kg/min, 39.8 mls/hr Documented by: Daptomycin 525 mg/ Syringe 10.5 mls @ 5.25 mls/min IV DAILY@1000 [facility]; Protocol Stop: 04/09/21 09:59 Last Admin: 03/26/21 10:53 Dose: 5.25 mls/min Documented by: Ceftriaxone Sodium 2,000 mg/ (Dextrose) 70 mls @ 140 mls/hr IV DAILY@1600 [facility]; Protocol Stop: 04/05/21 15:59 Norepinephrine Bitartrate (Levophed/D5w) 32 mg in 250 mls @ 2.981 mls/hr IV .Q24H [facility]; Protocol Stop: 04/25/21 10:29 Last Admin: 03/26/21 10:56 Dose: 0.05 mcg/kg/min, 3 mls/hr Documented by: Insulin Aspart (Insulin Aspart 100 Units/Ml 3 Ml Pen) 0 units SC Q4 [facility] Stop: 04/17/21 11:59 Last Admin: 03/26/21 11:34 Dose: 1 units Documented by: Insulin Glargine (Insulin Glargine Solostar 100 Units/Ml 3 Ml Pen) 0 units SC BID@0800,2000 [facility]; Protocol Stop: 04/23/21 07:59 Last Admin: 03/26/21 08:39 Dose: 4 units Documented by: Lactulose (Lactulose Syrup 20 Gm/30 Ml Udc) 20 gm PO TID [facility] Stop: 04/25/21 13:59 Magnesium Oxide (Magnesium Oxide 400 Mg Tab) 400 mg PO BID [facility] Stop: 04/23/21 08:59 Last Admin: 03/26/21 08:38 Dose: 400 mg Documented by: Methylnaltrexone [place] (Methylnaltrexone [place] 12 Mg/0.6 Ml Vial) 12 mg SQ TODAY@0900 ONE Stop: 03/27/21 09:01 Metoclopramide HCl (Metoclopramide Hcl Inj 5 Mg/Ml 2 Ml Vial) 10 mg IV 1030 [facility] Stop: 03/26/21 14:00 Last Admin: 03/26/21 12:34 Dose: 10 mg Documented by: Midazolam HCl (Midazolam Bolus From Bag) 2 mg IV Q60M PRN PRN Reason: Sedation Stop: 04/20/21 11:16 Miscellaneous (Carbohydrates For Hypoglycemia ) 15 - 30 gm PO UD PRN PRN Reason: Hypoglycemia Protocol Stop: 04/09/21 03:08 Miscellaneous (Icu Electrolyte Replacement Protocol) 1 ea N/A BID@06,18 [facility]; Protocol Stop: 04/02/21 17:59 Miscellaneous Information (Pharmacy Glycemic Mgmt Consult) 1 ea N/A UD PRN PRN Reason: Consult Stop: 04/17/21 09:45 Miscellaneous Information (Enoxaparin Consult Active) 1 ea N/A UD PRN PRN Reason: Consult Stop: 04/25/21 10:20 Nutritional Formula (Peptamen Intense Vhp 1.0 Donnell 1,000 Ml Bag) 1,000 ml GT CONT [facility]; Protocol Stop: 04/16/21 12:14 Last Admin: 03/26/21 00:46 Dose: 1,000 ml Documented by: Oxycodone HCl (Oxycodone Hcl Soln 5 Mg/5 Ml Udc) 5 mg PO BID [facility] Stop: 04/06/21 20:59 Last Admin: 03/26/21 08:37 Dose: 5 mg Documented by: Polyethylene Glycol (Polyethylene (Miralax) 17 Gm Pack) 17 gm PO DAILY [facility] Stop: 04/23/21 09:44 Last Admin: 03/26/21 08:39 Dose: 17 gm Documented by: Potassium Chloride (Potassium Chloride 20 Meq/15 Ml Udc) 40 meq PO BID [facility] Stop: 04/23/21 08:59 Last Admin: 03/26/21 08:37 Dose: 40 meq Documented by: Propofol (Propofol Bolus From Bag) 20 mg IV Q5M PRN PRN Reason: Sedation Stop: 03/27/21 10:49 Sennosides (Sennosides 8.8 Mg/5 Ml Udc) 17.6 mg PO BID [facility] Stop: 04/23/21 09:44 Last Admin: 03/26/21 08:32 Dose: 17.6 mg Documented by: Sucralfate (Sucralfate 1 Gm Tab) 1 gm PO ACHS [facility] Stop: 04/09/21 07:29 Last Admin: 03/26/21 10:52 Dose: 1 gm Documented by: Vecuronium [place] (Vecuronium [place] 10 Mg Vial) 10 mg IV Q1H PRN PRN Reason: ventilator dyssynchrony Stop: 04/24/21 17:14 Last Admin: 03/26/21 12:32 Dose: 10 mg Documented by:
--- NOTE | 2021-03-26 13:03 | Palliative Care Consultation ---
Date of Consultation March 26, 2021 Assessment & Plan (1) Acute hypoxemic respiratory failure: Met with Leigh's , sister, Angelica, niece and father along with Dr. Colunga. Dr. Colunga provided detailed update on her condition and current challenges. Her family is struggling with her illness, particularly her father, who is still grieving the loss of his with covid. They continue to hope for recovery but understand the severity of her disease. Her notes that Leigh would not want to be "kept alive on machines". They are all in agreement that if she had cardiac arrest, they would not want CPR or further resuscitation. At this time they want to continue current level of treatment with daily updates to Angelica at [phone] at her 's request. Leigh does have a 5 year old daughter at home. I spoke with Perfecto about how they are coping. He has a lot of support from his family as well as Leigh's. His mother has been spending a lot of time with their daughter and she has continued to attend school. Family was escorted to ICU for window visit. Palliative care will follow. (2) Palliative care encounter: (3) Pneumonia due to COVID-19 virus: (4) Diabetes: (5) Obesity, unspecified: History of Present Illness Reason for Consultation: goals of care Requesting Physician: Dr. Lozada Attending Physician: Willie Lockwood MD History of Present Illness 34 yo with history of diabetes, anxiety depression and obesity who was admitted on 03/10 with shortness of breath. She was covid positive. She has been on vent support for nine days with pressor support, sedation and paralytics. She has received remdesivir, antibiotic therapy, and steroids. She has also had a pulmonary embolisim. Unfortunately, in the last two days she has had increased difficulty with oxygenation despite maximum support with sats in the 70s and 80s at times. We have been consulted to assist with goals of care. Of note, her mother of covid last year. Allergies Allergy/AdvReac Type Severity Reaction Status Date / Time verapamil AdvReac Unknown "Black Out" Verified 03/09/21 21:49 Home Medications Medication Instructions Recorded Confirmed Type metformin 1,000 mg tablet 1,000 mg PO QAM 03/29/18 03/09/21 History bupropion HCl 150 mg 24 hr tablet, 150 mg PO QAM 02/13/20 03/09/21 History extended release chlorthalidone 25 mg tablet 25 mg PO QAM 02/13/20 03/09/21 History famotidine 40 mg tablet 40 mg PO QAM 02/13/20 03/09/21 History lisinopril 10 mg tablet 10 mg PO QAM 02/13/20 03/09/21 History sucralfate 1 gram tablet 1 g PO ACHS 02/13/20 03/09/21 History clonazepam 1 mg tablet 1 mg PO TID PRN 03/03/20 03/09/21 History escitalopram oxalate 10 mg tablet 30 mg PO QAM 03/03/20 03/09/21 History hydroxyzine HCl 25 mg tablet 25 - 50 mg PO HS 03/03/20 03/09/21 History meclizine 25 mg tablet 25 mg PO DAILY PRN 06/02/20 03/09/21 History diclofenac sodium 75 mg 75 mg PO BID #60 tab 07/28/20 03/09/21 Rx tablet,delayed release buspirone 10 mg tablet 10 mg PO QAM 12/02/20 03/09/21 History ketorolac 60 mg/2 mL intramuscular 30 mg IM WK PRN 30 Days #4 ml 01/12/21 Rx solution syringe with needle 3 mL 21 gauge #100 ea 01/12/21 Rx x 1 1/2" (BD Luer-Indira Syringe) hydromorphone 4 mg tablet 4 mg PO DAILY PRN 30 Days #8 tab 02/02/21 03/09/21 Rx Patient History Medical History Anxiety Benign positional vertigo treated PRN Cervical radiculopathy Chronic migraine without aura with status migrainosus, not intractable Depression GERD (gastroesophageal reflux disease) Hx of endometriosis Hypertension Insomnia Kidney stones Lumbar spinal stenosis Nausea and vomiting after administration of anesthetic agent Peptic ulcer disease hx Pre-diabetes Sleep apnea bipap Surgical History H/O section (04/28/11) x1 History of cholecystectomy (01/27/13) History of dilatation and curettage History of esophagogastroduodenoscopy (EGD) History of laparoscopy History of ovarian cystectomy x2 S/P epidural steroid injection Family History Mother Diabetes Hypertension Stroke syndrome Chronic kidney disease Congestive heart failure Sarcoidosis Father Heart disease Hypertension Social History Smoking Status: Former smoker Second Hand Exposure: Yes (); Do You Dip or Chew Tobacco: No; Hx Alcohol Use: Yes Hx Substance Use: No Preferred Language: Kazakh Communication Ability: Effective Visual Impairment: No Limitations Hearing Ability: Normal 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 Operator Required: No Beliefs That Will Affect Care: None marital status: Current Living Situation: Family Current Living Situation Comment: , daugher and father current occupational status: employed 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 Other Information That Helps Us Care for You: No Feels Safe at Home: Yes Safety Concerns: Feels Safe At This Time Assistive Devices: Oxygen - Continuous Review of Systems Review of Systems: Unobtainable due to endotracheal tube and Unobtainable due to reduced consciousness Physical Exam Constitutional: + morbidly obese and + mechanically ventilated Cardiovascular: Rate/Rhythm: regular rate and regular rhythm Neurologic: + obtunded Genitourinary: Aldridge catheter Results & Data ([facility]) Vital Signs (Past 12 Hours) Vital Signs Temp Pulse Resp BP Pulse Ox 03/26/21 11:10 79 32 H 91 03/26/21 09:30 99.0 F 83 32 H 72 L 03/26/21 09:00 99.0 F 74 32 H 90 03/26/21 08:30 99.1 F 75 32 H 91 03/26/21 08:23 73 34 H 93 03/26/21 08:00 99.1 F 75 32 H 92 03/26/21 07:58 108/61 03/26/21 07:30 99.3 F 76 32 H 92 03/26/21 07:00 99.1 F 75 32 H 91 03/26/21 06:45 99.1 F 79 32 H 86 L 03/26/21 06:30 99.1 F 68 32 H 79 L 03/26/21 06:15 99.1 F 72 32 H 88 L 03/26/21 06:00 99.1 F 72 32 H 89 L 03/26/21 05:45 99.1 F 70 32 H 88 L 10/14/21 05:30 99.1 F 71 32 H 88 L 03/26/21 05:15 99.1 F 73 32 H 90 03/26/21 05:00 99.1 F 71 32 H 93 03/26/21 04:45 99.1 F 71 32 H 95 03/26/21 04:30 99.0 F 71 32 H 95 03/26/21 04:15 99.0 F 74 32 H 95 03/26/21 04:00 99.0 F 70 32 H 95 03/26/21 03:45 99.1 F 70 32 H 94 03/26/21 03:30 99.1 F 69 32 H 93 03/26/21 03:20 89 33 H 90 03/26/21 03:15 99.1 F 68 32 H 89 L 03/26/21 03:00 99.1 F 71 32 H 95 03/26/21 02:45 99.1 F 72 32 H 95 03/26/21 02:30 99.1 F 70 32 H 95 03/26/21 02:15 99.0 F 69 32 H 95 03/26/21 02:00 99.0 F 70 32 H 95 03/26/21 01:45 99.0 F 72 32 H 95 03/26/21 01:30 99.0 F 71 32 H 95 03/26/21 01:15 99.0 F 72 32 H 95 03/26/21 01:00 99.0 F 74 32 H 95 PG Care Time/CCT Total # of Minutes Spent Total Time Spent: 69 Total Time Spent with Patient: Total time spent is greater than 50% in coordination of care (as documented) at patient's floor/unit and/or counseling patient: family meeting, goals of care, family support Coding Level of Care Code 48669 Initial Inpt Care Lvl 2 Diagnoses Acute hypoxemic respiratory failure J96.01 Palliative care encounter Z51.5 Pneumonia due to COVID-19 virus U07.1; J12.82 Diabetes E11.9 Obesity, unspecified E66.9
--- NOTE | 2021-03-26 14:48 | Critical Care Progress Note ---
Date of Service March 26, 2021 Assessment & Plan (1) Pneumonia due to COVID-19 virus: (2) Acute hypoxemic respiratory failure: (3) Pulmonary embolism: (4) Morbid obesity: Plan: Reason Critically Ill: Leigh Carballo is a 35 year old female w/ PMHx of DM, anxiety/depression, rheumatoid arthritis, obesity, distant 2.5 pack yr hx tobacco who presents w/ covid pneumonia and worsened hypoxemic respiratory failure due to pulmonary embolism. She has received tPA. Patient was intubated 03/17/21 for impending resp failure. 24-hour events: I have been unable to make any significant progress with regards to the patient's oxygenation. She remains on a PEEP of 20 and FiO2 100%. She remains on low-dose pressors. She is intermittently requiring doses of paralytics to maintain ventilator synchrony. Recommendations: Neuro -currently sedated on Versed and fentanyl. She is day 9 mechanical ventilation. We will continue low-dose oral clonazepam and OxyContin to try and wean fentanyl and Versed. Discontinue Lexapro and BuSpar. Continue intermittent paralytics as needed. Blood pressure is too soft to consider Precedex. Cardiac -suspect hypotension related to analgesia agents. Continue low-dose norepinephrine infusion Respiratory -acute on chronic hypoxemic and hypercarbic respiratory failure. She remains with elevated PCO2 despite her current vent settings. She has fairly diffuse disease and has not responded favorably to proning in the past so I do not think this is an option. She is already been refused to separate facilities for extracorporeal membrane oxygenation. Recruitment maneuvers have not offered any benefit and inverse ratio ventilation resulted in clinical deterioration. She failed inhaled epoprostenol. Patient has received maximal therapy at this point time and there is nothing else to offer her. See family discussions below. GI -tube feeds at trophic. Continue oral naltrexone and Reglan. pepcid 40 IV qam. No evidence of obstruction on KUB RENAL/LYTES - on ICU electrolyte replacement protocol. Diuresed well over the last 24 hours. Will continue Lasix drip down to 5 mg an hour for the next 24 hours and see how we do - [place]. Strict Is/Os. ENDO - ICU hyperglycemia protocol. HEME -mild anemia. No evidence of acute active ongoing bleeding. Patient is getting a large amount of fluid secondary to heparin infusion. We will discontinue the heparin infusion and transition to subcu Lovenox with monitoring of 10 A levels in an effort to try and get her intake and output negative ID -patient persistently febrile. Blood cultures 1 out of 2 gram-positive cocci in clusters. Urine culture with pansensitive E. coli. Sputum culture with gram-positive cocci on the Gram stain but no growth to date. Currently on daptomycin and Rocephin. Await culture data. We will draw a repeat cultures through the central line and if they are persistently positive, will change out the line LINES/IV ACCESS - PIVs intact. + LIJ central venous catheter. DVT PROPHYLAXIS - SCDs. Heparin drip, therapeutic code: full dispo: continue ICU status. Discussed w/ Chey and Roge regarding eval for ecmo: Not a candidate Patient remains critically ill at this point time with multiorgan system dysfunction/failure. She is on life support. I met with family members today with palliative care and we updated them on the patient's current condition. I reviewed her clinical case in detail. I answered all questions regarding her clinical course. At this point time we have maxed out available therapy for her hypoxemic respiratory failure. I advised them that there is nothing else to offer and at this point time she will either get better or not. If she suffers clinical deterioration and multiorgan system dysfunction, I do not think this is survivable. The family is in agreement that CPR or defibrillation at this point time would likely be futile and will thus change her status to DO NOT RESUSCITATE. We did discuss that if the patient plateaus or starts to develop multiorgan system dysfunction, revisiting goals of therapy might be appropriate and they are open to these discussions. They asked multiple insightful questions and are appropriately distraught at the condition of the patient. Appreciate palliative care assistance. We will continue to follow with them. The sister requests that she be the point of contact and the is in agreement. They did do a window visit today. Total of 90 minutes was spent in critical care time in evaluation management of this patient and discussions with family including end-of-life issues. Admission and Anticipated Discharge Date Admission Date: March 10, 2021 Subjective Patient remains intubated and sedated and intermittently paralyzed Review of Systems Review of Systems: Unobtainable due to endotracheal tube Physical Exam Physical Exam: Remains sedated on ventilator Constitutional: well developed, well nourished, + ill appearing and + obese Eyes: PERRL, conjunctivae normal, anicteric sclerae Neck: trachea midline, no thyromegaly Respiratory: + respiratory distress Auscultation: + diminished lung sounds and + crackles (At the bases) Cardiovascular: Rate/Rhythm: regular rate and regular rhythm; not tachycardic Heart Sounds: normal S1 and normal S2; no murmur Extremities: + edema (Trace edema bilaterally) Gastrointestinal (Abdomen): Inspection/Auscultation: normal bowel sounds; abdomen not distended Percussion/Palpation: abdomen soft; abdomen nontender Lymphatic: no cervical or axillary lymphadenopathy Results & Data Results & Data ([facility]) Vital Signs (Past 12 Hours) Vital Signs Temp Pulse Resp BP Pulse Ox 03/26/21 11:10 79 32 H 91 03/26/21 09:30 37.2 C 83 32 H 72 L 03/26/21 09:00 37.2 C 74 32 H 90 03/26/21 08:30 37.3 C 75 32 H 91 03/26/21 08:23 73 34 H 93 03/26/21 08:00 37.3 C 75 32 H 92 03/26/21 07:58 108/61 03/26/21 07:30 37.4 C 76 32 H 92 03/26/21 07:00 37.3 C 75 32 H 91 03/26/21 06:45 37.3 C 79 32 H 86 L 03/26/21 06:30 37.3 C 68 32 H 79 L 03/26/21 06:15 37.3 C 72 32 H 88 L 03/26/21 06:00 37.3 C 72 32 H 89 L 03/26/21 05:45 37.3 C 70 32 H 88 L 03/26/21 05:30 37.3 C 71 32 H 88 L 03/26/21 05:15 37.3 C 73 32 H 90 03/26/21 05:00 37.3 C 71 32 H 93 03/26/21 04:45 37.3 C 71 32 H 95 03/26/21 04:30 37.2 C 71 32 H 95 03/26/21 04:15 37.2 C 74 32 H 95 03/26/21 04:00 37.2 C 70 32 H 95 03/26/21 03:45 37.3 C 70 32 H 94 03/26/21 03:30 37.3 C 69 32 H 93 03/26/21 03:20 89 33 H 90 03/26/21 03:15 37.3 C 68 32 H 89 L 03/26/21 03:00 37.3 C 71 32 H 95 03/26/21 02:45 37.3 C 72 32 H 95 Critical Care Results & Data Vital Signs (Past 12 Hours) Vital Signs Temp Pulse Resp BP Pulse Ox 03/26/21 11:10 79 32 H 91 03/26/21 09:30 37.2 C 83 32 H 72 L 03/26/21 09:00 37.2 C 74 32 H 90 03/26/21 08:30 37.3 C 75 32 H 91 03/26/21 08:23 73 34 H 93 03/26/21 08:00 37.3 C 75 32 H 92 03/26/21 07:58 108/61 03/26/21 07:30 37.4 C 76 32 H 92 03/26/21 07:00 37.3 C 75 32 H 91 03/26/21 06:45 37.3 C 79 32 H 86 L 03/26/21 06:30 37.3 C 68 32 H 79 L 03/26/21 06:15 37.3 C 72 32 H 88 L 03/26/21 06:00 37.3 C 72 32 H 89 L 03/26/21 05:45 37.3 C 70 32 H 88 L 03/26/21 05:30 37.3 C 71 32 H 88 L 03/26/21 05:15 37.3 C 73 32 H 90 03/26/21 05:00 37.3 C 71 32 H 93 03/26/21 04:45 37.3 C 71 32 H 95 03/26/21 04:30 37.2 C 71 32 H 95 03/26/21 04:15 37.2 C 74 32 H 95 03/26/21 04:00 37.2 C 70 32 H 95 03/26/21 03:45 37.3 C 70 32 H 94 03/26/21 03:30 37.3 C 69 32 H 93 03/26/21 03:20 89 33 H 90 03/26/21 03:15 37.3 C 68 32 H 89 L 03/26/21 03:00 37.3 C 71 32 H 95 03/26/21 02:45 37.3 C 72 32 H 95 Lab & Micro Results (Past 24 Hours) RBC 3.67 M/uL (4.2-5.4) L 03/26/21 WBC 13.47 K/uL (4.8-10.8) H 03/26/21 Hgb 9.4 g/dL (12.0-16.0) L 03/26/21 Hct 31.4 % (37-47) L 03/26/21 MCV 85.6 fL (80-100) 03/26/21 MCH 25.6 pg (25-34) 03/26/21 MCHC 29.9 g/dL (32-36) L 03/26/21 RDW Standard Deviation 52.6 fL (36.4-46.3) H 03/26/21 RDW Coefficient of Variation 16.9 % (11.5-14.5) H 03/26/21 Plt Count 303 K/uL (130-400) 03/26/21 MPV 8.7 fL (7.4-10.4) 03/26/21 Nucleated Red Blood Cells % (auto) 0.3 % 03/26/21 Nucleated RBC Absolute Count (auto) 0.04 K/uL (0-0) H 03/26/21 Neutrophils (%) (Auto) 82.8 % 03/26/21 Lymphocytes (%) (Auto) 7.1 % 03/26/21 Monocytes # (Auto) 1.10 K/uL (0.11-0.59) H 03/26/21 Eosinophils # (Auto) 0.13 K/uL (0-0.5) 03/26/21 Immature Granulocyte % (Auto) 0.8 % 03/26/21 Neutrophils # (Auto) 11.15 K/uL (1.4-6.5) H 03/26/21 Lymphocytes # (Auto) 0.96 K/uL (1.2-3.4) L 03/26/21 Monocytes # (Auto) 1.10 K/uL (0.11-0.59) H 03/26/21 Eosinophils # (Auto) 0.13 K/uL (0-0.5) 03/26/21 Basophils # (Auto) 0.02 K/uL (0-0.2) 03/26/21 Immature Granulocyte # (Auto) 0.11 K/uL (0.00-0.02) H 03/26/21 Na 137 mmol/L (136-145) 03/26/21 K 3.8 mmol/L (3.5-5.1) 03/26/21 Cl 93 mmol/L (98-107) L 03/26/21 CO2 42 mmol/L (21-32) H* 03/26/21 Anion Gap 2.0 (3-11) L 03/26/21 BUN 12 mg/dl (7-18) 03/26/21 Creatinine 0.74 mg/dl (0.6-1.2) 03/26/21 Estimated GFR ( Amer) 120.8 ml/min 03/26/21 Estimated GFR (Non-Af Amer) 104.2 ml/min 03/26/21 BUN/Creatinine Ratio 16.0 (10-20) 03/26/21 Glu 140 mg/dl (70-99) H 03/26/21 Ca 8.7 mg/dl (8.5-10.1) 03/26/21 Phosphorus Level 5.7 mg/dl (2.5-4.9) H 03/26/21 Mg 2.2 mg/dl (1.8-2.4) 03/26/21 04:45 03/26/21 Calcium Level 8.7 mg/dl (8.5-10.1) 03/26/21 04:45 03/26/21 Howard Test NA 03/26/21 11:03 03/26/21 Microbiology 03/24/21 13:19 Gram Stain - Final Sputum,Vent Suction Sputum Culture - Final Light normal kwaku. 03/24/21 12:03 Aerobic Blood Culture - Preliminary Blood No growth in Aerobic bottle after 48 hours. Anaerobic Blood Culture - Final 03/24/21 18:09 Urine Culture - Final Urine,Indwelling Cath Escherichia coli 03/24/21 10:33 Aerobic Blood Culture - Final Blood Coag neg staph not lugdunensis Anaerobic Blood Culture - Final Coag neg staph not lugdunensis Diagnostic Findings (Past 24 Hours) Chest X-Ray 03/26/21 07:00 XR chest 1V portable HISTORY: 35 years-old Female Resp failure acute respiratory failure COMPARISON: Chest radiograph 03/25/2021 TECHNIQUE: Portable AP view of the chest FINDINGS: Endotracheal tube overlies the midline, 3.5 cm superior to the yosef. Left IJ central venous catheter is unchanged with distal tip in the expected location of the brachiocephalic SVC confluence. Enteric tube courses below the diaphragm with distal tip outside the [id number]. No pneumothorax. Cardiomegaly with extensive bilateral airspace opacities, generally stable from comparison. No large pleural effusion. No acute fracture. IMPRESSION: 1. Lines and tubes as above. 2. No significant change of the extensive bilateral airspace opacities. ACT 112: Negative or not required by law. The above report was generated using voice recognition software. It may contain grammatical, syntax or spelling errors. Electronically signed by: Dago De La Rosa M.D. 03/26/2021 7:18 AM I & O Totals 24 Hours 03/25/21 03/26/21 03/27/21 06:59 06:59 06:59 Intake Total 5639.362 / 5639.362 5668.717 / 5668.717 758.603 / 758.603 Output Total 6900 / 6900 4200 / 4200 625 / 625 Balance -1260.638 / -5043.054 5336.717 / 1468.717 133.603 / 133.603 Cumulative 03/09/21 16:38 thru 03/26/21 13:54 Intake Total 68923.211 Output Total 13371 Balance 4223.211 RT Ventilator Mngmt (Last Documented) Ventilator Ordered Settings Ventilator Support Mode Assist Control 03/26/21 12:00 Respiratory Rate 32 03/26/21 11:10 Ventilator Tidal Volume 300 03/26/21 12:00 Setting Minute Ventilation 9.6 03/26/21 11:10 Positive End Expiratory 20 03/26/21 11:10 Pressure Fraction of Inspired Oxygen 100 03/26/21 11:10 Peak Inspiratory Flow 30 03/24/21 22:11 Machine Comment weaned to 90%O2 from ABG result 03/26/21 05:28 Ventilator - PT Measurements Respiratory Rate 32 Exhaled Tidal Volume 300 Minute Ventilation 9.6 Peak Inspiratory Airway 43 Pressure Plateau Pressure 39.4 Respiratory Cycle Inspiratory: 1:1.1 Expiratory Ratio Inspiratory Phase Time 0.9 End-Tidal CO2 60 Static Lung Compliance 15.46 Dynamic Lung Compliance 13.04 Normal Static Lung Compliance 43.00 Patient Measurements Comment flowlan started on pt per request Coding Level of Care Code Critical Care ea addt'l 30 min Diagnoses Pneumonia due to COVID-19 virus U07.1; J12.82 Acute hypoxemic respiratory failure J96.01 Pulmonary embolism I26.99 Morbid obesity E66.01 Time Spent (min) 90 Comment 54511 and 18024
--- NOTE | 2021-03-26 15:12 | Pharmacy Report ---
Enoxaparin Dosing Consult - Date of Service March 26, 2021 - Pharmacy Dosing Scope Pharmacy is consulted to review the use of enoxaparin in a special risk patient population possibly prone to accumulate drug: elevated BMI/extended therapy/& to initiate/continue/recommend change in the setting of ordered THERAPEUTIC enoxaparin sub-q dosing therapy, order appropriate labs and adjust drug/dose/frequency. - Subjective The patient is a 35 year old F admitted on 03/10/21 00:16 for RESP FAILURE, COVID. Patient is to receive or is currently on day # 1 THERAPEUTIC enoxaparin sub-q for submassive PE (s/p tPA on 03/16 and heparin drip 03/17-03/26). - Objective Laboratory Results:: Last 24 Hours 03/25/21 03/25/21 03/26/21 16:26 19:30 04:45 Hgb 9.4 L Hct 31.4 L Plt Count 303 APTT 49.8 H* PTT Ratio 1.9 BUN 11 Creatinine 0.68 03/26/21 03/26/21 04:45 04:45 Hgb Hct Plt Count APTT 47.3 H* PTT Ratio 1.8 BUN 12 Creatinine 0.74 Last 72 Hours 03/24/21 03/25/21 03/26/21 06:04 05:30 04:45 Plt Count 307 324 303 - Assessment & Plan Regarding THERAPEUTIC Enoxaparin: Initiate enoxaparin 1mg/kg (129 mg) sub-q every 12 hours based on review of the following special population risk factors for drug accumulation: elevated BMI/extended therapy Labs: * Will order Peak Anti-factor Xa level to be drawn 4 hours after 5th dose to better assess drug elimination & review potential for drug accumulation. Goal Peak Anti-factor Xa level = 0.5-1 IU/mL for therapeutic dosing at q12h interval. * Ongoing Labs (P&T Approved): CBC q 2 days x 2 weeks, serum creat q 2 days We will continue to monitor this patient and make adjustments as needed. Thank you.
[2021-03-26] MEDS: LACTULOSE SYRUP 20 GM/30 ML UDC PO SCH ×2 (15:49→20:43)
[2021-03-26] MEDS ORDERED: cefTRIAXone SODIUM 2,000 MG in DEXTROSE 5% 50 ML IV SCH (16:00)
[2021-03-26] MEDS: ICU ELECTROLYTE REPLACEMENT PROTOCOL SCH (17:13)
[2021-03-26] MEDS: ACETAMINOPHEN 325 MG TAB PO PRN ×2 (18:23→23:44)
[2021-03-27] MEDS: INSULIN ASPART 100 UNITS/ML 3 ML PEN SC SCH ×6 (00:26→20:00)
[2021-03-27] MEDS: propofoL 1,000 MG/100 ML VIAL IV SCH ×14 (02:30→22:44)
[2021-03-27] MEDS: VECURONIUM BROMIDE 10 MG VIAL IV PRN ×2 (03:55→11:21)
[2021-03-27] MEDS: fentaNYL citrate 2,500 MCG/250 ML BAG IV SCH ×2 (05:00→17:54)
[2021-03-27 05:12] LABS: BUN Creatinine Ratio 11.3 (10-20); Creatinine Clr Calc Pharmacy 89.3 ml/min; Est GFR (African American) 66.7 ml/min; Est GFR (Non-African American) 57.5 ml/min; Magnesium 2.1 mg/dl (1.8-2.4); Potassium 3.9 mmol/L (3.5-5.1)
[2021-03-27 05:13] LABS: Phosphorus 5.1 mg/dl (2.5-4.9)
[2021-03-27] MEDS: ICU ELECTROLYTE REPLACEMENT PROTOCOL SCH ×2 (06:32→17:55)
[2021-03-27] MEDS: POTASSIUM CHLORIDE / WTR 20 MEQ/100 ML PLCT IV SCH ×2 (07:40→10:01)
[2021-03-27] MEDS: DAPTOmycin 525 MG in SYRINGE 0 ML IV SCH (07:40)
[2021-03-27] MEDS: SUCRALFATE 1 GM TAB PO SCH ×4 (07:41→22:10)
[2021-03-27] MEDS: DOCUSATE SODIUM SYRUP 100 MG/10 ML UDC PO SCH ×2 (07:42→22:10)
[2021-03-27] MEDS: busPIRone 5 MG TAB PO SCH (07:42)
[2021-03-27] MEDS: ENOXAPARIN 150 MG/ML SYR SQ SCH ×2 (07:42→22:11)
[2021-03-27] MEDS: FAMOTIDINE 40 MG TABLET PO SCH (07:43)
[2021-03-27] MEDS: LACTULOSE SYRUP 20 GM/30 ML UDC PO SCH ×3 (07:43→22:04)
[2021-03-27] MEDS: SENNOSIDES 8.8 MG/5 ML UDC PO SCH ×2 (07:44→22:09)
[2021-03-27] MEDS: oxyCODONE HCL SOLN 5 MG/5 ML UDC PO SCH ×2 (07:47→22:16)
[2021-03-27] MEDS: POTASSIUM CHLORIDE 20 MEQ/15 ML UDC PO SCH (07:47)
[2021-03-27] MEDS: MAGNESIUM OXIDE 400 MG TAB PO SCH ×2 (07:48→22:16)
[2021-03-27] MEDS: POLYETHYLENE (MIRALAX) 17 GM PACK PO SCH (07:48)
[2021-03-27] MEDS: clonazePAM 0.5 MG TAB PO SCH ×2 (07:48→22:16)
[2021-03-27] MEDS: ACETAMINOPHEN 325 MG TAB PO PRN (07:48)
[2021-03-27] MEDS: INSULIN GLARGINE SOLOSTAR 100 UNITS/ML 3 ML PEN SC SCH ×2 (08:22→20:00)
[2021-03-27] MEDS ORDERED: PIPERACILLIN/TAZOBACTAM 4.5 GM in DEXTROSE 5% 100 ML IV ONE (10:00)
[2021-03-27] MEDS: METHYLNALTREXONE BROMIDE 12 MG/0.6 ML VIAL SQ ONE ×2 (10:02→10:18)
--- NOTE | 2021-03-27 11:21 | Procedure Note ---
Procedure Note Date of Service March 27, 2021 Note CENTRAL LINE PROCEDURE NOTE: Procedure: Central Line Placement Provider: Alberto Colunga MD Indication: Central Drug Administration, Poor Venous Access, Multiple Lab Draws Necessary, etc. Anesthesia: 5 mL lidocaine 1% locally Site: Left subclavian Procedure was urgent. The patient is intubated and sedated and unable to provide consent. No family immediately available. A time-out was completed verifying correct patient, procedure, site, positioning, and implants(s) or special equipment if applicable. Patients left subclavian area was cleansed and draped in the typical sterile fashion using Chloraprep. Landmarks were easily identified. The superficial tissue was anesthetized using 5 mL mL of 1% lidocaine without epinephrine under direct visualization with the ultrasound. After adequate anesthetization was achieved, the left subclavian vein was cannulated using an introducer needle on a syringe. Good venous blood return was maintained prior to removal of syringe from introducer needle. Using Seldinger Technique, a guide wire was advanced through the introducer needle without resistance. The introducer needle was removed. A small incision was made in penetrating fashion at the guide wire insertion site utilizing an 11 blade scalpel. The dilator was advanced to the vessel without resistance. The dilator was exchanged for the triple lumen catheter which was advanced into the vessel without resistance. The guide wire was removed intact from the catheter without issue. Claves were placed on each catheter tip with confirmation of good blood flow from each lumen. Each port was easily flushed with sterile saline. The catheter was placed at the hub and sutured in place. BioPatch was applied to the catheter and a sterile Tegaderm dressing was applied over the catheter with careful attention to sterility. Patient tolerated procedure well. No immediate complications were met. Post procedure x-ray currently pending. Estimated blood loss less than 5 mL Coding CPT Codes Tubes, Drains, and Vasc Access - Tubes, Drains, and Vasc Access: [id number] Place catheter in vein superior or inferior vena cava ([id number]) [facility] [place] [facility] [place] Codes (Charges) Tubes, Drains, and Vasc Access Procedure 1: Tubes, Drains, and Vasc Access: [id number] Place catheter in vein superior or inferior vena cava
[2021-03-27] MEDS: MAX Conc 128mcg/mL; 32mg in 250mL IV SCH (11:29)
--- NOTE | 2021-03-27 11:33 | Critical Care Progress Note ---
Date of Service March 27, 2021 Assessment & Plan (1) Pneumonia due to COVID-19 virus: (2) Acute hypoxemic respiratory failure: (3) Pulmonary embolism: (4) Morbid obesity: Plan: Reason Critically Ill: Leigh Carballo is a 35 year old female w/ PMHx of DM, anxiety/depression, rheumatoid arthritis, obesity, distant 2.5 pack yr hx tobacco who presents w/ covid pneumonia and worsened hypoxemic respiratory failure due to pulmonary embolism. She has received tPA. Patient was intubated 03/17/21 for impending resp failure. 24-hour events: Remains persistently febrile despite initiation of antibiotics. Requires intermittent boluses of paralytics. No significant progress on vent settings. Kidney function is worse today. Recommendations: Neuro -currently sedated on Versed and fentanyl. She is day 9 mechanical ventilation. We will continue low-dose oral clonazepam and OxyContin to try and wean fentanyl and Versed. Off Lexapro and BuSpar. Continue intermittent paralytics as needed. Blood pressure is too soft to consider Precedex. Cardiac -suspect hypotension related to analgesia agents. Continue low-dose norepinephrine infusion as needed Respiratory -acute on chronic hypoxemic and hypercarbic respiratory failure. She remains with elevated PCO2 despite her current vent settings. She has fairly diffuse disease and has not responded favorably to proning in the past so I do not think this is an option. She has been declined for extracorporeal membrane oxygenation at 2 separate institutions. Recruitment maneuvers have not offered any benefit and inverse ratio ventilation resulted in clinical deterioration. She failed inhaled epoprostenol. Patient has received maximal therapy at this point time and there is nothing else to offer her. Plateau pressures remain elevated in the 40s however no other interventions are available at this point in time GI -tube feeds at trophic. Had a bowel movement today. We will hold on additional oral naltrexone. pepcid 40 IV qam. RENAL/LYTES -serum creatinine is almost doubled today. We will hold on additional diuretics. Follow kidney function closely. Were barely able to get her intake and output to even yesterday ALISSON Dunney. Strict Is/Os. ENDO - ICU hyperglycemia protocol. HEME -mild anemia. No evidence of acute active ongoing bleeding. Continue Lovenox for now with 10 A levels although if the patient's kidney function deteriorates, may need to transition back to heparin. ID -patient persistently febrile. Blood cultures 1 out of 2 coag negative staph. Urine culture with pansensitive E. coli. Sputum culture with no growth to date. Currently on daptomycin and Rocephin. Given her decline will discontinue the Rocephin and place her on Zosyn renally dosed. We will change out her central line. The arterial line was only placed within the last 24 hours so we will see how she does and then determine whether or not additional interventions are required LINES/IV ACCESS - PIVs intact. + Left subclavian central venous catheter. DVT PROPHYLAXIS - SCDs. Heparin drip, therapeutic code: full dispo: continue ICU status. Discussed w/ Chey and Roge regarding eval for ecmo: Not a candidate Patient remains critically ill at this point time with multiorgan system dysfunction/failure. She is on life support. She was discussed on multidisciplinary rounds and with the palliative care team and with the bedside critical care nurse. I will call and update the sister today. She is not making any clinical progress and may have taken a small step back over the last 24 hours. Overall outcomes unclear. Total of 50 minutes in critical care time was spent evaluation management stabilization this patient Admission and Anticipated Discharge Date Admission Date: March 10, 2021 Subjective Patient seen and examined. EMR reviewed. She remains intubated sedated and intermittently paralyzed Review of Systems Review of Systems: Unobtainable due to endotracheal tube Physical Exam Physical Exam: Remains sedated on ventilator Constitutional: well developed, well nourished, + ill appearing and + obese Eyes: PERRL, conjunctivae normal, anicteric sclerae Neck: trachea midline, no thyromegaly Respiratory: + respiratory distress Auscultation: + diminished lung sounds and + crackles (At the bases) Cardiovascular: Rate/Rhythm: regular rate and regular rhythm; not tachycardic Heart Sounds: normal S1 and normal S2; no murmur Extremities: + edema (Trace edema bilaterally) Gastrointestinal (Abdomen): Inspection/Auscultation: normal bowel sounds; abdomen not distended Percussion/Palpation: abdomen soft; abdomen nontender Lymphatic: no cervical or axillary lymphadenopathy Results & Data Results & Data ([facility]) Vital Signs (Past 12 Hours) Vital Signs Temp Pulse Resp Pulse Ox 03/27/21 07:59 117 H 33 H 90 03/27/21 06:30 39.3 C H 109 H 32 H 91 03/27/21 06:15 39.4 C H 109 H 32 H 90 03/27/21 06:00 39.4 C H 108 H 32 H 90 03/27/21 05:45 39.3 C H 108 H 32 H 89 L 03/27/21 05:30 39.3 C H 106 H 32 H 89 L 03/27/21 05:15 39.3 C H 106 H 32 H 89 L 03/27/21 05:00 39.2 C H 106 H 32 H 88 L 03/27/21 04:45 38.9 C H 110 H 32 H 87 L 03/27/21 04:30 39.2 C H 106 H 32 H 88 L 03/27/21 04:15 39.2 C H 105 H 32 H 87 L 03/27/21 04:00 39.2 C H 109 H 32 H 84 L 03/27/21 03:45 39.1 C H 106 H 32 H 88 L 03/27/21 03:30 39.1 C H 105 H 32 H 89 L 03/27/21 03:15 39.0 C H 103 H 32 H 89 L 03/27/21 03:00 39.0 C H 101 H 32 H 88 L 03/27/21 02:45 39.0 C H 101 H 35 H 89 L 03/27/21 02:30 38.9 C H 100 H 32 H 89 L 03/27/21 02:15 38.9 C H 99 H 32 H 87 L 03/27/21 02:00 38.8 C H 96 H 35 H 89 L 03/27/21 01:45 38.8 C H 94 H 35 H 90 03/27/21 01:30 38.8 C H 94 H 35 H 90 03/27/21 01:15 38.8 C H 94 H 35 H 91 03/27/21 01:00 38.7 C H 91 H 28 H 91 03/27/21 00:45 38.7 C H 93 H 28 H 91 03/27/21 00:30 38.6 C H 93 H 28 H 91 03/27/21 00:15 38.7 C H 94 H 28 H 91 03/27/21 00:00 38.6 C H 94 H 28 H 90 03/26/21 23:45 38.6 C H 98 H 28 H 89 L 03/26/21 23:30 38.5 C H 94 H 28 H 89 L Critical Care Results & Data Vital Signs (Past 12 Hours) Vital Signs Temp Pulse Resp Pulse Ox 03/27/21 07:59 117 H 33 H 90 03/27/21 06:30 39.3 C H 109 H 32 H 91 03/27/21 06:15 39.4 C H 109 H 32 H 90 03/27/21 06:00 39.4 C H 108 H 32 H 90 03/27/21 05:45 39.3 C H 108 H 32 H 89 L 03/27/21 05:30 39.3 C H 106 H 32 H 89 L 03/27/21 05:15 39.3 C H 106 H 32 H 89 L 03/27/21 05:00 39.2 C H 106 H 32 H 88 L 03/27/21 04:45 38.9 C H 110 H 32 H 87 L 03/27/21 04:30 39.2 C H 106 H 32 H 88 L 03/27/21 04:15 39.2 C H 105 H 32 H 87 L 03/27/21 04:00 39.2 C H 109 H 32 H 84 L 03/27/21 03:45 39.1 C H 106 H 32 H 88 L 03/27/21 03:30 39.1 C H 105 H 32 H 89 L 03/27/21 03:15 39.0 C H 103 H 32 H 89 L 03/27/21 03:00 39.0 C H 101 H 32 H 88 L 03/27/21 02:45 39.0 C H 101 H 35 H 89 L 03/27/21 02:30 38.9 C H 100 H 32 H 89 L 03/27/21 02:15 38.9 C H 99 H 32 H 87 L 03/27/21 02:00 38.8 C H 96 H 35 H 89 L 03/27/21 01:45 38.8 C H 94 H 35 H 90 03/27/21 01:30 38.8 C H 94 H 35 H 90 03/27/21 01:15 38.8 C H 94 H 35 H 91 03/27/21 01:00 38.7 C H 91 H 28 H 91 03/27/21 00:45 38.7 C H 93 H 28 H 91 03/27/21 00:30 38.6 C H 93 H 28 H 91 03/27/21 00:15 38.7 C H 94 H 28 H 91 03/27/21 00:00 38.6 C H 94 H 28 H 90 03/26/21 23:45 38.6 C H 98 H 28 H 89 L 03/26/21 23:30 38.5 C H 94 H 28 H 89 L Lab & Micro Results (Past 24 Hours) No Data to Display Na 138 mmol/L (136-145) 03/27/21 K 3.9 mmol/L (3.5-5.1) 03/27/21 Cl 95 mmol/L (98-107) L 03/27/21 CO2 40 mmol/L (21-32) H 03/27/21 Anion Gap 3.0 (3-11) 03/27/21 BUN 14 mg/dl (7-18) 03/27/21 Creatinine 1.21 mg/dl (0.6-1.2) H 03/27/21 Estimated GFR ( Amer) 66.7 ml/min 03/27/21 Estimated GFR (Non-Af Amer) 57.5 ml/min 03/27/21 BUN/Creatinine Ratio 11.3 (10-20) 03/27/21 Glu 131 mg/dl (70-99) H 03/27/21 Ca 9.0 mg/dl (8.5-10.1) 03/27/21 Phosphorus Level 5.1 mg/dl (2.5-4.9) H 03/27/21 Mg 2.1 mg/dl (1.8-2.4) 03/27/21 04:35 03/27/21 Calcium Level 9.0 mg/dl (8.5-10.1) 03/27/21 04:35 03/27/21 Microbiology 03/26/21 10:06 Aerobic Blood Culture - Preliminary Blood No growth in Aerobic bottle after 24 hours. Anaerobic Blood Culture - Preliminary No growth in Anaerobic bottle after 24 hours. 03/24/21 13:19 Gram Stain - Final Sputum,Vent Suction Sputum Culture - Final Light normal kwaku. 03/24/21 12:03 Aerobic Blood Culture - Preliminary Blood No growth in Aerobic bottle after 48 hours. Anaerobic Blood Culture - Final 03/24/21 18:09 Urine Culture - Final Urine,Indwelling Cath Escherichia coli 03/24/21 10:33 Aerobic Blood Culture - Final Blood Coag neg staph not lugdunensis Anaerobic Blood Culture - Final Coag neg staph not lugdunensis I & O Totals 24 Hours 03/26/21 03/27/21 03/28/21 06:59 06:59 06:59 Intake Total 5668.717 / 5878.717 2320.457 / 2530.457 765.365 / 765.365 Output Total 4200 / 4200 2340 / 2340 Balance 1468.717 / 1678.717 -19.543 / 190.457 765.365 / 765.365 Cumulative 03/09/21 16:38 thru 03/27/21 10:01 Intake Total 11074.430 Output Total 77353 Balance 4835.430 RT Ventilator Mngmt (Last Documented) Ventilator Ordered Settings Ventilator Support Mode Assist Control 03/27/21 07:59 Respiratory Rate 33 03/27/21 07:59 Ventilator Tidal Volume 300 03/27/21 07:59 Setting Minute Ventilation 9.2 03/27/21 07:59 Positive End Expiratory 20 03/27/21 07:59 Pressure Fraction of Inspired Oxygen 100 03/27/21 07:59 Peak Inspiratory Flow 27 03/27/21 07:59 Machine Comment weaned to 90%O2 from ABG result 03/26/21 05:28 Ventilator - PT Measurements Respiratory Rate 33 Exhaled Tidal Volume 302 Minute Ventilation 9.2 Peak Inspiratory Airway 38 Pressure Plateau Pressure 31 Respiratory Cycle Inspiratory: 1:1.8 Expiratory Ratio Inspiratory Phase Time 0.90 End-Tidal CO2 70 Static Lung Compliance 27.45 Dynamic Lung Compliance 16.78 Normal Static Lung Compliance 45.00 Patient Measurements Comment patient remains on ventilator settings she has been on, tube martinez changed at this time due to oral secretions causing pads to come off of cheeks Coding Level of Care Code Critical Care 1st 30-74 mins Diagnoses Pneumonia due to COVID-19 virus U07.1; J12.82 Acute hypoxemic respiratory failure J96.01 Pulmonary embolism I26.99 Morbid obesity E66.01
[2021-03-27] MEDS ORDERED: PIPERACILL/TAZOBAC CONSULT ACTIVE PRN (12:04)
--- NOTE | 2021-03-27 12:20 | XRay Report ---
XR chest 1V portable HISTORY: Evaluate line placement. COMPARISON: Chest 03/26/2021. FINDINGS: Endotracheal tube terminates 4 cm from the yosef. Interval placement of a left subclavian central venous catheter which terminates at the distal SVC. A nasogastric tube terminates below the d iaphragm. The tip is not included on this study. A left jugular central venous catheter terminates at the distal left brachiocephalic vein. This remains unchanged. No pneumothorax. No pleural effusions. The heart remains borderline enlarged. Diffuse bilateral airspace opacities persist. IMPRESSION: 1. Satisfactory support line placement. 2. No change in the diffuse bilateral airspace opacities consistent with a viral pneumonia. ACT 112: Negative or not required by law. Electronically signed by: Ad Mancini M.D. 03/27/2021 12:19 PM
--- NOTE | 2021-03-27 14:12 | Pharmacy Report ---
Pharmacy Glycemic Short Note 2 - Date of Service March 27, 2021 - Glycemic Short BSG Results (Last 24 hours): 03/26/21 03/26/21 03/27/21 16:03 20:30 00:24 Glucose POC Glucose POC Glucose (other) 121 H 120 H 115 H 03/27/21 03/27/21 03/27/21 03:54 04:35 08:20 Glucose 131 H POC Glucose 124 H POC Glucose (other) 130 H 03/27/21 11:41 Glucose POC Glucose 133 H POC Glucose (other) OUTPATIENT ANTIDIABETIC REGIMEN: * none * A1c = 6.6% 03/18/21 ASSESSMENT: 03/27 * AM BSG 124 mg/dL, will continue low dose of lantus, BSGs have been stable all <180 mg/dL yesterdya (115-171 mg/dL) * Patient has received minimal correction doses of novolog, tube feeds continue at trickle. 03/25 * One BSG below goal range after patient received slightly higher dose of Lantus yesterday evening. Will decrease. * Novolog has been at the same parameters >72 hours, however, patient has been requiring/receiving hardly any Novolog. Concern for decrease in BSG's if tubefeeds are able to be titrated up with current parameters due to very low Lantus requirements - will loosen Novolog 03/24 * BSG's remain below goal range for ICU status patient after only 8 units of basal insulin yesterday. Will reduce further (possibly down to 0 units if BSG's remain below 120 mg/dL) and split BID based on BSG 03/23 * Hypoglycemia event this AM with BSG of 64 mg/dL. Etiology likely dual Lantus dose (although low dose at less than 0.1 units/kg) and Novolog coverage while on trickle tubefeeds. * BSG's have ranged 64-135 mg/dL over the last 24 hours. Significant changes required as this patient is ICU status (residing on 2E) therefore goal BSG range is 140-180 mg/dL. * Will stop Novolog coverage for *trickle* feeds, and only cover CHO if rate >= 20 mL/kg * Will reduce Lantus by 20% this AM, and then ongoing starting tomorrow will reduce dose (depending on BSG) and split BID PLAN FOR INPATIENT GLYCEMIC CONTROL: * Basal insulin * Lantus 0 or 3 units SQ BID based on BSG * Bolus insulin * NovoLog per scale Q 4 hrs * Goal Range: Low 110 mg/dL - High 140 mg/dL * Correction Factor: 30 mg/dL/unit * Nutritional / Prandial insulin per carb ratio of 1 unit per 10 grams CHO consumed via continuous tube feedings PLAN FOR DISCHARGE: * Would recommend diet/lifestyle modifications and outpatient follow-up to determine if uptitration of metformin is reasonable
[2021-03-27] MEDS: PEPTAMEN INTENSE VHP 1.0 CAL 1,000 ML BAG GT SCH ×2 (15:09→17:54)
--- NOTE | 2021-03-27 16:58 | Hospitalist Progress Note ---
Date of Service March 27, 2021 Assessment & Plan (1) Acute hypoxemic respiratory failure: Plan: Extensive right-sided pulmonary embolism. CTA did show extensive right-sided pulmonary embolism no echocardiogram was available to assess RV strain The case discussed with vocational director in [place] Dr. Jacques and was not advised for any TPN given the hemodynamic stability and the patient has been under waiting list as there is no bed in ICU The case was discussed with vocational director Dr. Resendiz in [facility] and also Dr. Souza the therapist radiation who decided to go ahead and give TPA for this patient and heparin. The patient received TPA and followed by intravenous heparin. Status post intubation on 03/17/2021 and remains sedated Repeat CAT scan did not show any massive embolism but showed continued progressive pneumonia secondary to COVID-19 infection. Patient received systemic thrombolysis. Remains on heparin infusion. The vocational director has been trying to get her into ECMO therapy at [facility]EC[facility] therapy is denied Remains sedated and condition has been deteriorating Continue current management as per vocational director Conditions has not improved and has been deteriorating The ICU team is meeting with family members for further direction of care Appreciate palliative care input-not for comfort care yet Has been getting worse and going towards multiorgan failure We will continue current management Secondary to severe COVID-19 pneumonia Did not receive any vaccination for COVID-19 Continue with dexamethasone on admission and finished course of remdesivir. Appreciate pulmonary input and recommendation. Baricitinib has been stopped. C/w decadron and lasix. Repeat CTA did show progression of the pneumonia. 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 Plan to start prokinetic to help with motility. DVT prophylaxis per Lovenox subcu Received TPA and now on Heparin Prognosis remains very poor Full code. Admission and Anticipated Discharge Date Admission Date: March 10, 2021 Subjective 03/11/2021 The patient was seen and examined in medical telemetry unit She has been requiring high flow oxygen to maintain saturation and received remdesivir yesterday Feels shortness of breath with minimal exertion but better at rest 03/12/2029 The patient was seen and examined in medical telemetry unit She has been requiring more oxygen to maintain saturation She is complying with prone positioning 03/13/2021 The patient was seen and examined in medical telemetry unit and in the Covid room Her condition has not improved and is still requiring 40 L of oxygen with 100% FiO2 to maintain saturation 03/14/2021 The patient was seen and examined in medical telemetry unit and in the Covid room She has been getting any better and requiring high flow oxygen to maintain saturation We will sought advice from therapist radiation 03/15/2021 The patient was seen and examined in telemetry unit in Covid room She remains stable and is still requiring 4 L of oxygen to maintain saturation Clinically she feels a little bit better 03/16/2021 The patient was seen and examined in telemetry unit and in the Covid room She remains stable and has been requiring 40 L of oxygen with 100% FiO2 to maintain saturation As her condition has not been improving for the last 2 or 3 days CTA was ordered to rule out pulmonary embolism She did not have any chest pain, cough or hemoptysis 03/17/2021 The patient was seen and examined in telemetry unit and in the Covid room She is being intubated this morning 03/20/2021 The patient was seen and examined in telemetry unit and in the Covid room She remains intubated and the condition has not been getting any better The vocational director is trying to get her into ECMO therapy in [place] 03/21/2021 The patient was seen and examined in telemetry unit and in the Covid room She remains sedated and intubated 03/22/2021 The patient was seen and examined in telemetry unit She remains intubated and sedated and no significant events happened last night 03/25/2021 The patient was seen and examined in ICU Remains intubated and the condition has been deteriorating 03/26/2021 The patient was seen and examined in ICU She remains intubated and the condition has not been improved 03/27/2021 The patient was seen and examined in ICU Her condition has been deteriorating and going towards multiorgan failure Review of Systems Review of Systems: Unobtainable due to endotracheal tube Physical Exam Physical Exam: Remains sedated on ventilator Constitutional: well developed, well nourished, + ill appearing and + obese Eyes: PERRL, conjunctivae normal, anicteric sclerae ENMT: external ear and nose normal, oropharynx normal Neck: trachea midline, no thyromegaly Respiratory: + respiratory distress Auscultation: + diminished lung sounds and + crackles (At the bases) Cardiovascular: Rate/Rhythm: regular rate and regular rhythm; not tachycardic Heart Sounds: normal S1 and normal S2; no murmur Extremities: + edema (Trace edema bilaterally) Gastrointestinal (Abdomen): Inspection/Auscultation: normal bowel sounds; abdomen not distended Percussion/Palpation: abdomen soft; abdomen nontender Neurologic: Remains intubated and sedated Lymphatic: no cervical or axillary lymphadenopathy Results & Data Results & Data ([facility]) Vital Signs (Past 12 Hours) Vital Signs Temp Pulse Resp BP Pulse Ox 03/27/21 15:41 122 H 104/89 03/27/21 12:00 122 H 104/89 03/27/21 11:30 122 H 33 H 92 03/27/21 08:00 122 H 105/90 03/27/21 07:59 117 H 33 H 90 03/27/21 06:30 39.3 C H 109 H 32 H 91 03/27/21 06:15 39.4 C H 109 H 32 H 90 03/27/21 06:00 39.4 C H 108 H 32 H 90 03/27/21 05:45 39.3 C H 108 H 32 H 89 L 03/27/21 05:30 39.3 C H 106 H 32 H 89 L 03/27/21 05:15 39.3 C H 106 H 32 H 89 L 03/27/21 05:00 39.2 C H 106 H 32 H 88 L Laboratory Results [facility] 03/27/21 04:35 Sodium 138 Potassium 3.9 Chloride 95 L Carbon Dioxide 40 H BUN 14 Creatinine 1.21 H D Glucose 131 H Calcium 9.0 Medications Administered Current Inpatient Medications Acetaminophen (Acetaminophen Susp 325 Mg/10.15 Ml Udc) 650 mg PO Q4H PRN PRN Reason: Pain or Fever Stop: 04/26/21 09:57 Albuterol (Albuterol Hfa 8 Gm Inhaler) 2 puffs INH Q2R PRN PRN Reason: sob/wheeze Stop: 04/10/21 00:12 Clonazepam (Clonazepam 0.5 Mg Tab) 0.5 mg PO BID [facility] Stop: 04/22/21 20:59 Last Admin: 03/27/21 07:48 Dose: 0.5 mg Documented by: Dextrose (Dextrose 50% 50 Ml Syringe) 25 - 50 ml IV UD PRN; Protocol PRN Reason: Hypoglycemia Protocol Stop: 04/09/21 03:08 Last Admin: 03/23/21 04:22 Dose: 25 ml Documented by: Docusate Sodium (Docusate Sodium Syrup 100 Mg/10 Ml Udc) 100 mg PO BID [facility] Stop: 04/23/21 09:44 Last Admin: 03/27/21 07:42 Dose: 100 mg Documented by: Enoxaparin Sodium (Enoxaparin 150 Mg/Ml Syr) 129 mg SQ Q12 [facility] Stop: 04/25/21 10:29 Last Admin: 03/27/21 07:42 Dose: 129 mg Documented by: Famotidine (Famotidine 40 Mg Tablet) 40 mg PO QAM [facility] Stop: 04/09/21 08:59 Last Admin: 03/27/21 07:43 Dose: 40 mg Documented by: Fentanyl Citrate (Fentanyl Bolus From Bag) 50 mcg IV Q60M PRN PRN Reason: Pain or Agitation Stop: 03/31/21 10:47 Last Admin: 03/21/21 04:24 Dose: 50 mcg Documented by: Glucagon (Glucagon For Inj 1 Mg Vial) 1 mg SQ UD PRN; Protocol PRN Reason: Hypoglycemia Protocol Stop: 04/09/21 03:08 Glucose (Glucose 10 Tabs/Tube) 4 - 8 tabs PO UD PRN; Protocol PRN Reason: Hypoglycemia Protocol Stop: 04/09/21 03:08 Glucose (Glucose 40% Gel 15 Gm Tube) 15 - 30 gm PO UD PRN; Protocol PRN Reason: Hypoglycemia Protocol Stop: 04/09/21 03:08 Midazolam HCl (Versed) 125 mg in 250 mls @ 14 mls/hr IV .[id number] [facility]; Protocol Stop: 04/20/21 11:29 Last Titration: 03/27/21 07:10 Dose: 7 mg/hr, 14 mls/hr Documented by: Fentanyl Citrate (Fentanyl Citrate) 2,500 mcg in 250 mls @ 17.5 mls/hr IV .[id number] [facility]; Protocol Stop: 04/06/21 04:44 Last Titration: 03/27/21 07:10 Dose: 200 mcg/hr, 20 mls/hr Documented by: Propofol (Diprivan) 1,000 mg in 100 mls @ 15.936 mls/hr IV .Q6H17M [facility]; Protocol Stop: 03/28/21 10:59 Last Admin: 03/27/21 13:41 Dose: 20 mcg/kg/min, 15.9 mls/hr Documented by: Daptomycin 525 mg/ Syringe 10.5 mls @ 5.25 mls/min IV DAILY@1000 [facility]; Protocol Stop: 04/09/21 09:59 Last Admin: 03/27/21 07:40 Dose: 5.25 mls/min Documented by: Norepinephrine Bitartrate (Levophed/D5w) 32 mg in 250 mls @ 4.174 mls/hr IV .Q24H [facility]; Protocol Stop: 04/25/21 10:29 Last Admin: 03/27/21 11:29 Dose: Not Given Documented by: Piperacillin Sod/Tazobactam (Sod 4.5 gm/ Dextrose) 120 mls @ 30 mls/hr IV Q8H [facility]; Protocol Stop: 04/03/21 15:59 Insulin Aspart (Insulin Aspart 100 Units/Ml 3 Ml Pen) 0 units SC Q4 [facility] Stop: 04/17/21 11:59 Last Admin: 03/27/21 11:53 Dose: Not Given Documented by: Insulin Glargine (Insulin Glargine Solostar 100 Units/Ml 3 Ml Pen) 0 units SC BID@0800,2000 [facility]; Protocol Stop: 04/23/21 07:59 Last Admin: 03/27/21 08:22 Dose: Not Given Documented by: Lactulose (Lactulose Syrup 20 Gm/30 Ml Udc) 20 gm PO TID [facility] Stop: 04/25/21 13:59 Last Admin: 03/27/21 13:42 Dose: 20 gm Documented by: Magnesium Oxide (Magnesium Oxide 400 Mg Tab) 400 mg PO BID [facility] Stop: 04/23/21 08:59 Last Admin: 03/27/21 07:48 Dose: 400 mg Documented by: Midazolam HCl (Midazolam Bolus From Bag) 2 mg IV Q60M PRN PRN Reason: Sedation Stop: 04/20/21 11:16 Miscellaneous (Carbohydrates For Hypoglycemia ) 15 - 30 gm PO UD PRN PRN Reason: Hypoglycemia Protocol Stop: 04/09/21 03:08 Miscellaneous (Icu Electrolyte Replacement Protocol) 1 ea N/A BID@06,18 [facility]; Protocol Stop: 04/02/21 17:59 Last Admin: 03/27/21 06:32 Dose: 1 ea Documented by: Miscellaneous Information (Pharmacy Glycemic Mgmt Consult) 1 ea N/A UD PRN PRN Reason: Consult Stop: 04/17/21 09:45 Miscellaneous Information (Enoxaparin Consult Active) 1 ea N/A UD PRN PRN Reason: Consult Stop: 04/25/21 10:20 Miscellaneous Information (Piperacill/Tazobac Consult Active) 1 ea N/A UD PRN PRN Reason: Consult Stop: 04/26/21 12:03 Nutritional Formula (Peptamen Intense Vhp 1.0 Donnell 1,000 Ml Bag) 1,000 ml GT CONT [facility]; Protocol Stop: 04/26/21 16:29 Oxycodone HCl (Oxycodone Hcl Soln 5 Mg/5 Ml Udc) 5 mg PO BID [facility] Stop: 04/06/21 20:59 Last Admin: 03/27/21 07:47 Dose: 5 mg Documented by: Polyethylene Glycol (Polyethylene (Miralax) 17 Gm Pack) 17 gm PO DAILY [facility] Stop: 04/23/21 09:44 Last Admin: 03/27/21 07:48 Dose: 17 gm Documented by: Potassium Chloride (Potassium Chloride 20 Meq/15 Ml Udc) 40 meq PO BID [facility] Stop: 04/23/21 08:59 Last Admin: 03/27/21 07:47 Dose: 40 meq Documented by: Sennosides (Sennosides 8.8 Mg/5 Ml Udc) 17.6 mg PO BID [facility] Stop: 04/23/21 09:44 Last Admin: 03/27/21 07:44 Dose: 17.6 mg Documented by: Sterile Water (Tube Feeding Water Flush) 30 ml GT Q4H [facility] Stop: 04/26/21 16:29 Sucralfate (Sucralfate 1 Gm Tab) 1 gm PO ACHS [facility] Stop: 04/09/21 07:29 Last Admin: 03/27/21 11:29 Dose: 1 gm Documented by: Vecuronium [place] (Vecuronium [place] 10 Mg Vial) 10 mg IV Q1H PRN PRN Reason: ventilator dyssynchrony Stop: 04/24/21 17:14 Last Admin: 03/27/21 11:21 Dose: 10 mg Documented by:
[2021-03-27] MEDS: MIDAZOLAM HCL 125 MG/250 ML BAG IV SCH (17:30)
[2021-03-27] MEDS: PIPERACILLIN/TAZOBACTAM 4.5 GM in DEXTROSE 5% 100 ML IV SCH (17:31)
[2021-03-27] MEDS: TUBE FEEDING WATER FLUSH GT SCH ×2 (17:55→22:04)
[2021-03-27] MEDS: ACETAMINOPHEN SUSP 325 MG/10.15 ML UDC PO PRN ×2 (18:03→22:16)
--- NOTE | 2021-03-27 22:07 | Procedure Note ---
Procedure Note Date of Service March 27, 2021 Note ARTERIAL LINE PROCEDURE NOTE: Procedure: Arterial Line Placement- Lt/Rt radial Attending: Dr. COLUNGA APC: Edvin GILBERT ([facility] Indication: Monitoring on Pressors Anesthesia:[x]Lidocaine 1% [x]Consent was signed and placed on the chart prior to procedure. Indication, risks, and benefits were explained at length with Perfecto and sister in [place]. Phone consent via . A time-out was completed verifying correct patient, procedure, site, positioning, and implant(s) or special equipment if applicable. Allens test was performed to ensure adequate perfusion. Patients [LT ] wrist was prepped and draped in the usual sterile fashion. Ultrasound guidance was used to aid needle placement. A 20g Arrow arterial line was introduced into the LT radial artery. Catheter was threaded, and the needle was removed with sluggish blood return, no waveform was observed, manipulated catheter and unable to maintain brisk flow. The left radial was aborted. The right radial was assess further up from previous willi. Color Doppler verified 20 g arrow catheter was placed into the artery, there was brisk flow of blood, the catheter was placed over the guidewire needle apparatus and waveform confirmed, line secured with suture. Upon finishing suturing the willi waveform flattened and did not draw back, again could not manipulate catheter and maintain brisk blood flow. The right side willi was removed and pressure gauze placed. Blood Loss: Minimal Complications: Unable to maintain flow and waveform, no immediate complications noted, No arterial line left in place Procedural Ultrasound Guidance: Procedure Date: Indication: Right radial arterial line stopped functioning, on hemodynamic vasopressors, PaO2 monitoring. Attending: Dr. Colunga Artery Identified: YES Line confirmed in Artery with ultrasound: Yes Lines removed. Coding
[2021-03-28] MEDS: TUBE FEEDING WATER FLUSH GT SCH ×6 (00:04→19:59)
[2021-03-28] MEDS: PIPERACILLIN/TAZOBACTAM 4.5 GM in DEXTROSE 5% 100 ML IV SCH ×4 (00:04→23:29)
[2021-03-28] MEDS: INSULIN ASPART 100 UNITS/ML 3 ML PEN SC SCH ×6 (00:22→21:24)
[2021-03-28 01:30] LABS: Est GFR (Non-African American) 58.7 ml/min; Magnesium 2.4 mg/dl (1.8-2.4); Potassium 3.7 mmol/L (3.5-5.1)
[2021-03-28 01:38] LABS: Phosphorus 4.3 mg/dl (2.5-4.9)
[2021-03-28] MEDS: ICU ELECTROLYTE REPLACEMENT PROTOCOL SCH ×2 (01:41→18:07)
[2021-03-28 02:09] LABS: Fibrinogen > 860 mg/dl (184-400)
[2021-03-28] MEDS: propofoL 1,000 MG/100 ML VIAL IV SCH ×4 (02:22→23:29)
[2021-03-28] MEDS: POTASSIUM CHLORIDE / WTR 20 MEQ/100 ML PLCT IV SCH ×2 (02:22→03:46)
[2021-03-28] MEDS: ACETAMINOPHEN SUSP 325 MG/10.15 ML UDC PO PRN ×3 (03:47→23:30)
[2021-03-28] MEDS: fentaNYL citrate 2,500 MCG/250 ML BAG IV SCH ×2 (06:16→18:06)
[2021-03-28] MEDS: MAX Conc 128mcg/mL; 32mg in 250mL IV SCH (06:17)
[2021-03-28] MEDS: VECURONIUM BROMIDE 10 MG VIAL IV PRN ×5 (07:10→19:44)
[2021-03-28 07:22] LABS: Basophils # (auto) 0.05 K/uL (0-0.2); Basophils % (auto) 0.3 %; Eosinophils # (auto) 0.17 K/uL (0-0.5); Hematocrit (blood only) 32.4 % (37-47); Hemoglobin 9.5 g/dL (12.0-16.0); Immature Granulocytes # (auto) 0.21 K/uL (0.00-0.02); Immature Granulocytes % (auto) 1.3 %; Lymphocytes # (auto) 2.62 K/uL (1.2-3.4); Lymphocytes % (auto) 15.8 %; Mean Corpuscular Hemoglobin 25.8 pg (25-34); Mean Corpuscular Hgb Conc 29.3 g/dL (32-36); Mean Platelet Volume 9.4 fL (7.4-10.4); Monocytes # (auto) 1.51 K/uL (0.11-0.59); Monocytes % (auto) 9.1 %; Neutrophils % (auto) 72.5 %; Nucleated RBC % (auto) 0.6 %; Platelet Count 315 K/uL (130-400); RDW Coefficient of Variation 17.4 % (11.5-14.5); RDW Standard Deviation 56.4 fL (36.4-46.3); Red Blood Count 3.68 M/uL (4.2-5.4); White Blood Count 16.56 K/uL (4.8-10.8)
[2021-03-28] MEDS: SUCRALFATE 1 GM TAB PO SCH ×4 (08:15→20:44)
[2021-03-28] MEDS: ENOXAPARIN 150 MG/ML SYR SQ SCH ×2 (08:16→20:40)
[2021-03-28] MEDS: DOCUSATE SODIUM SYRUP 100 MG/10 ML UDC PO SCH ×2 (08:16→20:40)
[2021-03-28] MEDS: FAMOTIDINE 40 MG TABLET PO SCH (08:17)
[2021-03-28] MEDS: LACTULOSE SYRUP 20 GM/30 ML UDC PO SCH ×3 (08:17→19:59)
[2021-03-28] MEDS: SENNOSIDES 8.8 MG/5 ML UDC PO SCH ×2 (08:19→19:59)
[2021-03-28] MEDS: POLYETHYLENE (MIRALAX) 17 GM PACK PO SCH (08:19)
[2021-03-28] MEDS: DAPTOmycin 525 MG in SYRINGE 0 ML IV SCH (08:20)
[2021-03-28] MEDS: POTASSIUM CHLORIDE 20 MEQ/15 ML UDC PO SCH ×2 (08:25→20:44)
[2021-03-28] MEDS: MAGNESIUM OXIDE 400 MG TAB PO SCH ×2 (08:25→20:39)
[2021-03-28] MEDS: clonazePAM 0.5 MG TAB PO SCH ×2 (08:25→20:39)
[2021-03-28] MEDS: oxyCODONE HCL SOLN 5 MG/5 ML UDC PO SCH ×2 (08:25→20:38)
[2021-03-28] MEDS: INSULIN GLARGINE SOLOSTAR 100 UNITS/ML 3 ML PEN SC SCH (09:14)
[2021-03-28] MEDS ORDERED: STAT IV Infusion **Titration per Protocol STA ×2 (12:55→19:59)
[2021-03-28] MEDS ORDERED: PROPOFOL BOLUS FROM BAG IV PRN (12:55)
--- NOTE | 2021-03-28 12:59 | Critical Care Progress Note ---
Date of Service March 28, 2021 Assessment & Plan (1) Pneumonia due to COVID-19 virus: (2) Acute hypoxemic respiratory failure: (3) Pulmonary embolism: (4) Morbid obesity: Plan: Reason Critically Ill: Leigh Carballo is a 35 year old female w/ PMHx of DM, anxiety/depression, rheumatoid arthritis, obesity, distant 2.5 pack yr hx tobacco who presents w/ covid pneumonia and worsened hypoxemic respiratory failure due to pulmonary embolism. She has received tPA. Patient was intubated 03/17/21 for impending resp failure. 24-hour events: Central line replaced due to persistent fevers. Arterial line was lost during the night and attempted to be replaced but clotted off. Aldridge was changed out. Antibiotics were broadened. No significant progress in changing her vent requirements currently. She had significant increase in stool output and had a Ana shield placed by nursing. Recommendations: Neuro -currently sedated on Versed and fentanyl. She is day 10 mechanical ventilation. We will continue low-dose oral clonazepam and OxyContin to try and wean fentanyl and Versed. Off Lexapro and BuSpar. Continue intermittent paralytics as needed. Blood pressure is too soft to consider Precedex. Cardiac -suspect hypotension related to analgesia agents. Continue low-dose norepinephrine infusion as needed Respiratory -acute on chronic hypoxemic and hypercarbic respiratory failure. She remains with elevated PCO2 despite her current vent settings. She has fairly diffuse disease and has not responded favorably to proning in the past so I do not think this is an option. She has been declined for extracorporeal membrane oxygenation at 2 separate institutions. Recruitment maneuvers have not offered any benefit and inverse ratio ventilation resulted in clinical deterioration. She failed inhaled epoprostenol. Patient has received maximal therapy at this point time and there is nothing else to offer her. Plateau pressures remain elevated in the 40s however no other interventions are available at this point in time. Her vent settings are too high to consider tracheostomy currently. GI -tube feeds advancing to goal. We will hold additional bowel regimen given need for Ana shield pepcid 40 IV qam. RENAL/LYTES -renal function is stable today. We will hold on additional diuretics. Follow kidney function closely. - Aldridge. Strict Is/Os. ENDO - ICU hyperglycemia protocol. HEME -mild anemia. No evidence of acute active ongoing bleeding. Continue Lovenox for now with 10 A levels although if the patient's kidney function deteriorates, may need to transition back to heparin. ID -patient persistently febrile. Blood cultures 1 out of 2 coag negative staph. Urine culture with pansensitive E. coli. Sputum culture with no growth to date. Cultures of her nasal secretions have shown no growth to date. We will pursue a CT of the sinuses and check Fungitel. Currently on daptomycin and Zosyn. Lines of all been changed out recently. Check CT sinuses. LINES/IV ACCESS - PIVs intact. + Left subclavian central venous catheter. DVT PROPHYLAXIS - SCDs. Heparin drip, therapeutic code: full dispo: continue ICU status. Discussed w/ Chey and Roge regarding eval for ecmo: Not a candidate Patient remains critically ill at this point time with multiorgan system dysfunction/failure. She is on life support. She was discussed on multidisciplinary rounds and with the palliative care team and with the bedside critical care nurse. I will call and update the sister today. She is not making any clinical progress and may have taken a small step back over the last 24 hours. Overall outcomes unclear. Total of 46 minutes in critical care time was spent evaluation management stabilization this patient Admission and Anticipated Discharge Date Admission Date: March 10, 2021 Subjective Patient remains intubated sedated and paralyzed intermittently. Review of Systems Review of Systems: Unobtainable due to endotracheal tube Physical Exam Physical Exam: Remains sedated on ventilator Constitutional: well developed, well nourished, + ill appearing and + obese Eyes: PERRL, conjunctivae normal, anicteric sclerae Neck: trachea midline, no thyromegaly Respiratory: + respiratory distress Auscultation: + diminished lung sounds and + crackles (At the bases) Cardiovascular: Rate/Rhythm: regular rate and regular rhythm; not tachycardic Heart Sounds: normal S1 and normal S2; no murmur Extremities: + edema (Trace edema bilaterally) Gastrointestinal (Abdomen): Inspection/Auscultation: normal bowel sounds; abdomen not distended Percussion/Palpation: abdomen soft; abdomen nontender Lymphatic: no cervical or axillary lymphadenopathy Results & Data Results & Data ([facility]) Vital Signs (Past 12 Hours) Vital Signs Temp Pulse Resp BP Pulse Ox 03/28/21 11:45 116 H 34 H 86 L 03/28/21 10:30 111 H 30 H 87 L 03/28/21 10:00 38.8 C H 114 H 30 H 106/68 87 L 03/28/21 09:30 115 H 28 H 88 L 03/28/21 09:00 38.8 C H 117 H 30 H 88 L 03/28/21 08:30 120 H 30 H 87 L 03/28/21 08:00 121 H 32 H 108/73 88 L 03/28/21 07:50 121 H 33 H 87 L 03/28/21 07:30 38.7 C H 121 H 32 H 84 L 03/28/21 07:00 39.4 C H 122 H 32 H 88 L 03/28/21 06:30 39.4 C H 122 H 33 H 110/69 88 L 03/28/21 06:15 39.4 C H 122 H 32 H 101/63 88 L 03/28/21 06:00 39.4 C H 124 H 31 H 97/64 L 84 L 03/28/21 05:45 39.4 C H 128 H 30 H 103/56 L 87 L 03/28/21 05:30 39.4 C H 127 H 30 H 99/71 L 87 L 03/28/21 05:15 39.4 C H 125 H 30 H 88 L 03/28/21 05:03 126 H 37 H 86 L 03/28/21 05:00 39.4 C H 126 H 32 H 106/66 87 L 03/28/21 04:45 39.4 C H 124 H 32 H 87 L 03/28/21 04:30 39.4 C H 125 H 32 H 87 L 03/28/21 04:15 39.4 C H 121 H 30 H 99/64 L 88 L 03/28/21 04:00 39.4 C H 117 H 32 H 115/79 90 03/28/21 03:45 39.4 C H 119 H 32 H 120/76 90 03/28/21 03:30 39.4 C H 117 H 32 H 112/82 90 03/28/21 03:15 39.4 C H 117 H 33 H 120/79 89 L 03/28/21 03:00 39.4 C H 116 H 32 H 118/83 90 03/28/21 02:45 39.4 C H 114 H 32 H 124/83 90 03/28/21 02:30 39.4 C H 111 H 32 H 139/79 91 03/28/21 02:15 39.4 C H 111 H 32 H 123/83 90 03/28/21 02:00 39.4 C H 107 H 32 H 121/80 92 03/28/21 01:45 39.4 C H 110 H 32 H 121/80 90 03/28/21 01:40 111 H 33 H 90 03/28/21 01:30 39.4 C H 112 H 32 H 124/84 90 03/28/21 01:15 39.3 C H 114 H 32 H 128/83 89 L 03/28/21 01:00 39.3 C H 113 H 32 H 135/87 90 Critical Care Results & Data Vital Signs (Past 12 Hours) Vital Signs Temp Pulse Resp BP Pulse Ox 03/28/21 11:45 116 H 34 H 86 L 03/28/21 10:30 111 H 30 H 87 L 03/28/21 10:00 38.8 C H 114 H 30 H 106/68 87 L 03/28/21 09:30 115 H 28 H 88 L 03/28/21 09:00 38.8 C H 117 H 30 H 88 L 03/28/21 08:30 120 H 30 H 87 L 03/28/21 08:00 121 H 32 H 108/73 88 L 03/28/21 07:50 121 H 33 H 87 L 03/28/21 07:30 38.7 C H 121 H 32 H 84 L 03/28/21 07:00 39.4 C H 122 H 32 H 88 L 03/28/21 06:30 39.4 C H 122 H 33 H 110/69 88 L 03/28/21 06:15 39.4 C H 122 H 32 H 101/63 88 L 03/28/21 06:00 39.4 C H 124 H 31 H 97/64 L 84 L 03/28/21 05:45 39.4 C H 128 H 30 H 103/56 L 87 L 03/28/21 05:30 39.4 C H 127 H 30 H 99/71 L 87 L 03/28/21 05:15 39.4 C H 125 H 30 H 88 L 03/28/21 05:03 126 H 37 H 86 L 03/28/21 05:00 39.4 C H 126 H 32 H 106/66 87 L 03/28/21 04:45 39.4 C H 124 H 32 H 87 L 03/28/21 04:30 39.4 C H 125 H 32 H 87 L 03/28/21 04:15 39.4 C H 121 H 30 H 99/64 L 88 L 03/28/21 04:00 39.4 C H 117 H 32 H 115/79 90 03/28/21 03:45 39.4 C H 119 H 32 H 120/76 90 03/28/21 03:30 39.4 C H 117 H 32 H 112/82 90 03/28/21 03:15 39.4 C H 117 H 33 H 120/79 89 L 03/28/21 03:00 39.4 C H 116 H 32 H 118/83 90 03/28/21 02:45 39.4 C H 114 H 32 H 124/83 90 03/28/21 02:30 39.4 C H 111 H 32 H 139/79 91 03/28/21 02:15 39.4 C H 111 H 32 H 123/83 90 03/28/21 02:00 39.4 C H 107 H 32 H 121/80 92 03/28/21 01:45 39.4 C H 110 H 32 H 121/80 90 03/28/21 01:40 111 H 33 H 90 03/28/21 01:30 39.4 C H 112 H 32 H 124/84 90 03/28/21 01:15 39.3 C H 114 H 32 H 128/83 89 L Lab & Micro Results (Past 24 Hours) RBC 3.68 M/uL (4.2-5.4) L 03/28/21 WBC 16.56 K/uL (4.8-10.8) H 03/28/21 Hgb 9.5 g/dL (12.0-16.0) L 03/28/21 Hct 32.4 % (37-47) L 03/28/21 MCV 88.0 fL (80-100) 03/28/21 MCH 25.8 pg (25-34) 03/28/21 MCHC 29.3 g/dL (32-36) L 03/28/21 RDW Standard Deviation 56.4 fL (36.4-46.3) H 03/28/21 RDW Coefficient of Variation 17.4 % (11.5-14.5) H 03/28/21 Plt Count 315 K/uL (130-400) 03/28/21 MPV 9.4 fL (7.4-10.4) 03/28/21 Nucleated Red Blood Cells % (auto) 0.6 % 03/28/21 Nucleated RBC Absolute Count (auto) 0.10 K/uL (0-0) H 03/28/21 Neutrophils (%) (Auto) 72.5 % 03/28/21 Lymphocytes (%) (Auto) 15.8 % 03/28/21 Monocytes # (Auto) 1.51 K/uL (0.11-0.59) H 03/28/21 Eosinophils # (Auto) 0.17 K/uL (0-0.5) 03/28/21 Immature Granulocyte % (Auto) 1.3 % 03/28/21 Neutrophils # (Auto) 12.00 K/uL (1.4-6.5) H 03/28/21 Lymphocytes # (Auto) 2.62 K/uL (1.2-3.4) 03/28/21 Monocytes # (Auto) 1.51 K/uL (0.11-0.59) H 03/28/21 Eosinophils # (Auto) 0.17 K/uL (0-0.5) 03/28/21 Basophils # (Auto) 0.05 K/uL (0-0.2) 03/28/21 Immature Granulocyte # (Auto) 0.21 K/uL (0.00-0.02) H 03/28/21 Na 138 mmol/L (136-145) 03/28/21 K 3.7 mmol/L (3.5-5.1) 03/28/21 Cl 99 mmol/L (98-107) 03/28/21 CO2 38 mmol/L (21-32) H 03/28/21 Anion Gap 1.0 (3-11) L 03/28/21 BUN 18 mg/dl (7-18) 03/28/21 Creatinine 1.19 mg/dl (0.6-1.2) 03/28/21 Estimated GFR ( Amer) 68.0 ml/min 03/28/21 Estimated GFR (Non-Af Amer) 58.7 ml/min 03/28/21 BUN/Creatinine Ratio 15.0 (10-20) 03/28/21 Glu 133 mg/dl (70-99) H 03/28/21 Ca 9.0 mg/dl (8.5-10.1) 03/28/21 Phosphorus Level 4.3 mg/dl (2.5-4.9) 03/28/21 Mg 2.4 mg/dl (1.8-2.4) 03/28/21 00:50 03/28/21 Calcium Level 9.0 mg/dl (8.5-10.1) 03/28/21 00:50 03/28/21 Microbiology 03/26/21 10:06 Aerobic Blood Culture - Preliminary Blood No growth in Aerobic bottle after 48 hours. Anaerobic Blood Culture - Preliminary No growth in Anaerobic bottle after 48 hours. 03/27/21 08:05 Gram Stain - Final Sinus Aerobic and Anaerobic Culture - Preliminary Pin-point growth present, reincubating. 03/27/21 04:19 Aerobic Blood Culture - Preliminary Blood No growth in Aerobic bottle after 24 hours. Anaerobic Blood Culture - Preliminary No growth in Anaerobic bottle after 24 hours. 03/27/21 04:39 Aerobic Blood Culture - Preliminary Blood No growth in Aerobic bottle after 24 hours. Anaerobic Blood Culture - Preliminary No growth in Anaerobic bottle after 24 hours. I & O Totals 24 Hours 03/27/21 03/28/21 03/29/21 06:59 06:59 06:59 Intake Total 2320.457 / 2530.457 2520.843 / 2520.843 510.393 / 510.393 Output Total 2340 / 2340 1426 / 1426 250 / 250 Balance -19.543 / 317.190 6413.843 / 1094.843 260.393 / 260.393 Cumulative 03/09/21 16:38 thru 03/28/21 12:35 Intake Total 17958.301 Output Total 64186 Balance 5425.301 RT Ventilator Mngmt (Last Documented) Ventilator Ordered Settings Ventilator Support Mode Assist Control 03/28/21 11:45 Respiratory Rate 34 03/28/21 11:45 Ventilator Tidal Volume 300 03/28/21 11:45 Setting Minute Ventilation 9.2 03/28/21 11:45 Positive End Expiratory 20 03/28/21 11:45 Pressure Fraction of Inspired Oxygen 100 03/28/21 11:45 Peak Inspiratory Flow 27 03/27/21 16:00 Machine Comment Set inspiratory time=0.60 seconds 03/28/21 05:03 Ventilator - PT Measurements Respiratory Rate 34 Exhaled Tidal Volume 298 Minute Ventilation 9.2 Peak Inspiratory Airway 35 Pressure Plateau Pressure 32 Respiratory Cycle Inspiratory: 1:2.1 Expiratory Ratio Inspiratory Phase Time 0.60 End-Tidal CO2 57 Static Lung Compliance 24.83 Dynamic Lung Compliance 19.87 Normal Static Lung Compliance 45.00 Patient Measurements Comment Changed inspiratory time to 0.60 seconds for better I:E ratio. Coding Level of Care Code Critical Care 1st 30-74 mins Diagnoses Pneumonia due to COVID-19 virus U07.1; J12.82 Acute hypoxemic respiratory failure J96.01 Pulmonary embolism I26.99 Morbid obesity E66.01 Time Spent (min) 46
[2021-03-28] MEDS: MIDAZOLAM HCL 125 MG/250 ML BAG IV SCH (13:37)
--- NOTE | 2021-03-28 13:53 | Hospitalist Progress Note ---
Date of Service March 28, 2021 Assessment & Plan (1) Acute hypoxemic respiratory failure: Plan: Extensive right-sided pulmonary embolism. CTA did show extensive right-sided pulmonary embolism no echocardiogram was available to assess RV strain The case discussed with railroad watchman in [place] Dr. Jacques and was not advised for any TPN given the hemodynamic stability and the patient has been under waiting list as there is no bed in ICU The case was discussed with railroad watchman Dr. Resendiz in [facility] and also Dr. Souza the operations agent who decided to go ahead and give TPA for this patient and heparin. The patient received TPA and followed by intravenous heparin. Status post intubation on 03/17/2021 and remains sedated Repeat CAT scan did not show any massive embolism but showed continued progressive pneumonia secondary to COVID-19 infection. Patient received systemic thrombolysis. Remains on heparin infusion. The railroad watchman has been trying to get her into ECMO therapy at [facility]-ECMO therapy is denied Remains sedated and condition has been deteriorating Continue current management as per railroad watchman Conditions has not improved and has been deteriorating The ICU team is meeting with family members for further direction of care Appreciate palliative care input-not for comfort care yet Remains critical and has not been showing any improvement Fever Continues to have high temperature Has been on intravenous daptomycin and Zosyn Blood cultures remain negative Secondary to severe COVID-19 pneumonia Did not receive any vaccination for COVID-19 Continue with dexamethasone on admission and finished course of remdesivir. Appreciate pulmonary input and recommendation. Baricitinib has been stopped. C/w decadron and lasix. Repeat CTA did show progression of the pneumonia. Finished the course of dexamethasone, remdesivir and baricitinib As above H/O Hypertension Lisinopril is on hold H/O Anxiety/mood disorder: Continue her medications through the NG tube H/O DM2: Hold [employer] oral medications, well-controlled as of recent hemoglobin A1c of 5.19 November 2020 Basal insulin, ISS BG goal 1 10-1 40, carb count coverage, update hemoglobin A1c-6.3 as of 03/09/2021 Nutrition is maintained through NGt feeding -Tube feeds have been on hold given high residuals. Plan to start prokinetic to help with motility. DVT prophylaxis per Lovenox subcu Received TPA and now on Heparin Prognosis remains very poor-family members are aware Full code. Admission and Anticipated Discharge Date Admission Date: March 10, 2021 Subjective 03/11/2021 The patient was seen and examined in medical telemetry unit She has been requiring high flow oxygen to maintain saturation and received remdesivir yesterday Feels shortness of breath with minimal exertion but better at rest 03/12/2029 The patient was seen and examined in medical telemetry unit She has been requiring more oxygen to maintain saturation She is complying with prone positioning 03/13/2021 The patient was seen and examined in medical telemetry unit and in the Covid room Her condition has not improved and is still requiring 40 L of oxygen with 100% FiO2 to maintain saturation 03/14/2021 The patient was seen and examined in medical telemetry unit and in the Covid room She has been getting any better and requiring high flow oxygen to maintain saturation We will sought advice from operations agent 03/15/2021 The patient was seen and examined in telemetry unit in Covid room She remains stable and is still requiring 4 L of oxygen to maintain saturation Clinically she feels a little bit better 03/16/2021 The patient was seen and examined in telemetry unit and in the Covid room She remains stable and has been requiring 40 L of oxygen with 100% FiO2 to maintain saturation As her condition has not been improving for the last 2 or 3 days CTA was ordered to rule out pulmonary embolism She did not have any chest pain, cough or hemoptysis 03/17/2021 The patient was seen and examined in telemetry unit and in the Covid room She is being intubated this morning 03/20/2021 The patient was seen and examined in telemetry unit and in the Covid room She remains intubated and the condition has not been getting any better The railroad watchman is trying to get her into ECMO therapy in [place] 03/21/2021 The patient was seen and examined in telemetry unit and in the Covid room She remains sedated and intubated 03/22/2021 The patient was seen and examined in telemetry unit She remains intubated and sedated and no significant events happened last night 03/25/2021 The patient was seen and examined in ICU Remains intubated and the condition has been deteriorating 03/26/2021 The patient was seen and examined in ICU She remains intubated and the condition has not been improved 03/27/2021 The patient was seen and examined in ICU Her condition has been deteriorating and going towards multiorgan failure 03/28/2021 The patient was seen and examined in ICU She remains intubated and intermittently sedated Review of Systems Review of Systems: Unobtainable due to endotracheal tube Physical Exam Physical Exam: Remains sedated on ventilator Constitutional: well developed, well nourished, + ill appearing and + obese Eyes: PERRL, conjunctivae normal, anicteric sclerae ENMT: external ear and nose normal, oropharynx normal Neck: trachea midline, no thyromegaly Respiratory: + respiratory distress Auscultation: + diminished lung sounds and + crackles (At the bases) Cardiovascular: Rate/Rhythm: regular rate and regular rhythm; not tachycardic Heart Sounds: normal S1 and normal S2; no murmur Extremities: + edema (Trace edema bilaterally) Gastrointestinal (Abdomen): Inspection/Auscultation: normal bowel sounds; abdomen not distended Percussion/Palpation: abdomen soft; abdomen nontender Neurologic: Sedated Lymphatic: no cervical or axillary lymphadenopathy Results & Data Results & Data ([facility]) Vital Signs (Past 12 Hours) Vital Signs Temp Pulse Resp BP Pulse Ox 03/28/21 13:30 38.9 C H 117 H 28 H 84 L 03/28/21 13:00 116 H 30 H 85 L 03/28/21 12:30 38.9 C H 107 H 32 H 88 L 03/28/21 12:00 116 H 32 H 86 L 03/28/21 11:45 116 H 34 H 86 L 03/28/21 11:30 115 H 10 L 86 L 03/28/21 11:00 114 H 30 H 86 L 03/28/21 10:30 111 H 30 H 87 L 03/28/21 10:00 38.8 C H 114 H 30 H 106/68 87 L 03/28/21 09:30 115 H 28 H 88 L 03/28/21 09:00 38.8 C H 117 H 30 H 88 L 03/28/21 08:30 120 H 30 H 87 L 03/28/21 08:00 121 H 32 H 108/73 88 L 03/28/21 07:50 121 H 33 H 87 L 03/28/21 07:30 38.7 C H 121 H 32 H 84 L 03/28/21 07:00 39.4 C H 122 H 32 H 88 L 03/28/21 06:30 39.4 C H 122 H 33 H 110/69 88 L 03/28/21 06:15 39.4 C H 122 H 32 H 101/63 88 L 03/28/21 06:00 39.4 C H 124 H 31 H 97/64 L 84 L 03/28/21 05:45 39.4 C H 128 H 30 H 103/56 L 87 L 03/28/21 05:30 39.4 C H 127 H 30 H 99/71 L 87 L 03/28/21 05:15 39.4 C H 125 H 30 H 88 L 03/28/21 05:03 126 H 37 H 86 L 03/28/21 05:00 39.4 C H 126 H 32 H 106/66 87 L 03/28/21 04:45 39.4 C H 124 H 32 H 87 L 03/28/21 04:30 39.4 C H 125 H 32 H 87 L 03/28/21 04:15 39.4 C H 121 H 30 H 99/64 L 88 L 03/28/21 04:00 39.4 C H 117 H 32 H 115/79 90 03/28/21 03:45 39.4 C H 119 H 32 H 120/76 90 03/28/21 03:30 39.4 C H 117 H 32 H 112/82 90 03/28/21 03:15 39.4 C H 117 H 33 H 120/79 89 L 03/28/21 03:00 39.4 C H 116 H 32 H 118/83 90 03/28/21 02:45 39.4 C H 114 H 32 H 124/83 90 03/28/21 02:30 39.4 C H 111 H 32 H 139/79 91 03/28/21 02:15 39.4 C H 111 H 32 H 123/83 90 03/28/21 02:00 39.4 C H 107 H 32 H 121/80 92 Laboratory Results Short CBC 03/28/21 Range/Units 06:43 WBC 16.56 H (4.8-10.8) K/uL Hgb 9.5 L (12.0-16.0) g/dL Hct 32.4 L (37-47) % Plt Count 315 (130-400) K/uL BMP 03/28/21 00:50 Sodium 138 Potassium 3.7 Chloride 99 Carbon Dioxide 38 H BUN 18 Creatinine 1.19 Glucose 133 H Calcium 9.0 Medications Administered Current Inpatient Medications Acetaminophen (Acetaminophen Susp 325 Mg/10.15 Ml Udc) 650 mg PO Q4H PRN PRN Reason: Pain or Fever Stop: 04/26/21 09:57 Last Admin: 03/28/21 12:18 Dose: 650 mg Documented by: Albuterol (Albuterol Hfa 8 Gm Inhaler) 2 puffs INH Q2R PRN PRN Reason: sob/wheeze Stop: 04/10/21 00:12 Clonazepam (Clonazepam 0.5 Mg Tab) 0.5 mg PO BID [facility] Stop: 04/22/21 20:59 Last Admin: 03/28/21 08:25 Dose: 0.5 mg Documented by: Dextrose (Dextrose 50% 50 Ml Syringe) 25 - 50 ml IV UD PRN; Protocol PRN Reason: Hypoglycemia Protocol Stop: 04/09/21 03:08 Last Admin: 03/23/21 04:22 Dose: 25 ml Documented by: Docusate Sodium (Docusate Sodium Syrup 100 Mg/10 Ml Udc) 100 mg PO BID [facility] Stop: 04/23/21 09:44 Last Admin: 03/28/21 08:16 Dose: Not Given Documented by: Enoxaparin Sodium (Enoxaparin 150 Mg/Ml Syr) 129 mg SQ Q12 ALYSE Stop: 04/25/21 10:29 Last Admin: 03/28/21 08:16 Dose: 129 mg Documented by: Famotidine (Famotidine 40 Mg Tablet) 40 mg PO QAM ALYSE Stop: 04/09/21 08:59 Last Admin: 03/28/21 08:17 Dose: 40 mg Documented by: Fentanyl Citrate (Fentanyl Bolus From Bag) 50 mcg IV Q60M PRN PRN Reason: Pain or Agitation Stop: 03/31/21 10:47 Last Admin: 03/21/21 04:24 Dose: 50 mcg Documented by: Glucagon (Glucagon For Inj 1 Mg Vial) 1 mg SQ UD PRN; Protocol PRN Reason: Hypoglycemia Protocol Stop: 04/09/21 03:08 Glucose (Glucose 10 Tabs/Tube) 4 - 8 tabs PO UD PRN; Protocol PRN Reason: Hypoglycemia Protocol Stop: 04/09/21 03:08 Glucose (Glucose 40% Gel 15 Gm Tube) 15 - 30 gm PO UD PRN; Protocol PRN Reason: Hypoglycemia Protocol Stop: 04/09/21 03:08 Midazolam HCl (Versed) 125 mg in 250 mls @ 14 mls/hr IV .[id number] ALYSE; Protocol Stop: 04/20/21 11:29 Last Admin: 03/28/21 13:37 Dose: 7 mg/hr, 14 mls/hr Documented by: Fentanyl Citrate (Fentanyl Citrate) 2,500 mcg in 250 mls @ 17.5 mls/hr IV .[id number] ALYSE; Protocol Stop: 04/06/21 04:44 Last Titration: 03/28/21 07:07 Dose: 200 mcg/hr, 20 mls/hr Documented by: Daptomycin 525 mg/ Syringe 10.5 mls @ 5.25 mls/min IV DAILY@1000 ALYSE; Protocol Stop: 04/09/21 09:59 Last Admin: 03/28/21 08:20 Dose: 5.25 mls/min Documented by: Norepinephrine Bitartrate (Levophed/D5w) 32 mg in 250 mls @ 3.578 mls/hr IV .Q24H ALYSE; Protocol Stop: 04/25/21 10:29 Last Titration: 03/28/21 07:08 Dose: 0.06 mcg/kg/min, 3.6 mls/hr Documented by: Piperacillin Sod/Tazobactam (Sod 4.5 gm/ Dextrose) 120 mls @ 30 mls/hr IV Q8H ALYSE; Protocol Stop: 04/03/21 15:59 Last Infusion: 03/28/21 12:34 Dose: Infused Documented by: Propofol (Diprivan) 1,000 mg in 100 mls @ 16.32 mls/hr IV .Q6H8M ALYSE; Protocol Stop: 03/31/21 12:59 Insulin Aspart (Insulin Aspart 100 Units/Ml 3 Ml Pen) 0 units SC Q4 ALYSE Stop: 04/17/21 11:59 Last Admin: 03/28/21 12:09 Dose: 1 units Documented by: Lactulose (Lactulose Syrup 20 Gm/30 Ml Udc) 20 gm PO TID [facility] Stop: 04/25/21 13:59 Last Admin: 03/28/21 12:04 Dose: Not Given Documented by: Magnesium Oxide (Magnesium Oxide 400 Mg Tab) 400 mg PO BID [facility] Stop: 04/23/21 08:59 Last Admin: 03/28/21 08:25 Dose: 400 mg Documented by: Midazolam HCl (Midazolam Bolus From Bag) 2 mg IV Q60M PRN PRN Reason: Sedation Stop: 04/20/21 11:16 Miscellaneous (Carbohydrates For Hypoglycemia ) 15 - 30 gm PO UD PRN PRN Reason: Hypoglycemia Protocol Stop: 04/09/21 03:08 Miscellaneous (Icu Electrolyte Replacement Protocol) 1 ea N/A BID@18 [facility]; Protocol Stop: 04/02/21 17:59 Last Admin: 03/28/21 01:41 Dose: 1 ea Documented by: Miscellaneous Information (Pharmacy Glycemic Mgmt Consult) 1 ea N/A UD PRN PRN Reason: Consult Stop: 04/17/21 09:45 Miscellaneous Information (Enoxaparin Consult Active) 1 ea N/A UD PRN PRN Reason: Consult Stop: 04/25/21 10:20 Miscellaneous Information (Piperacill/Tazobac Consult Active) 1 ea N/A UD PRN PRN Reason: Consult Stop: 04/26/21 12:03 Nutritional Formula (Peptamen Intense Vhp 1.0 Donnell 1,000 Ml Bag) 1,000 ml GT CONT [facility]; Protocol Stop: 04/26/21 16:29 Last Admin: 03/27/21 17:54 Dose: 1,000 ml Documented by: Oxycodone HCl (Oxycodone Hcl Soln 5 Mg/5 Ml Udc) 5 mg PO BID [facility] Stop: 04/06/21 20:59 Last Admin: 03/28/21 08:25 Dose: 5 mg Documented by: Polyethylene Glycol (Polyethylene (Miralax) 17 Gm Pack) 17 gm PO DAILY [facility] Stop: 04/23/21 09:44 Last Admin: 03/28/21 08:19 Dose: Not Given Documented by: Potassium Chloride (Potassium Chloride 20 Meq/15 Ml Udc) 40 meq PO BID [facility] Stop: 04/23/21 08:59 Last Admin: 03/28/21 08:25 Dose: 40 meq Documented by: Propofol (Propofol Bolus From Bag) 20 mg IV Q5M PRN PRN Reason: Sedation Stop: 03/31/21 12:54 Sennosides (Sennosides 8.8 Mg/5 Ml Udc) 17.6 mg PO BID [facility] Stop: 04/23/21 09:44 Last Admin: 03/28/21 08:19 Dose: Not Given Documented by: Sterile Water (Tube Feeding Water Flush) 30 ml GT Q4H [facility] Stop: 04/26/21 16:29 Last Admin: 03/28/21 12:04 Dose: 30 ml Documented by: Sucralfate (Sucralfate 1 Gm Tab) 1 gm PO ACHS [facility] Stop: 04/09/21 07:29 Last Admin: 03/28/21 12:04 Dose: 1 gm Documented by: Vecuronium Myrtle (Vecuronium Myrtle 10 Mg Vial) 10 mg IV Q1H PRN PRN Reason: ventilator dyssynchrony Stop: 04/24/21 17:14 Last Admin: 03/28/21 13:37 Dose: 10 mg Documented by:
--- NOTE | 2021-03-28 14:22 | CT Scan Report ---
SINUS CT CT DOSE: 819.87 mGy.cm HISTORY: persistent fevers, ? sinusitis. TECHNIQUE: Multiaxial CT images of the paranasal sinuses were performed and reformatted in the hess l plane without the use of contrast. A dose lowering technique was utilized adhering to the principl es of ANGEL. COMPARISON: None. FINDINGS: The visualized brain parenchyma and orbits are unremarkable. The paranasal sinuses are esse ntially completely opacified. There is partial opacification of the nasal cavity. Fluid within the po sterior nasopharynx likely due to the endotracheal and orogastric tubes. Complete opacification of th e mastoid air cells and middle ear cavities. No erosive changes identified. The ostiomeatal units are completely opacified. The lamina papyracea and orbital floors are intact. IMPRESSION: 1. Complete opacification of the paranasal sinuses and mastoid air cells/middle ear cavities. 2. Endotracheal tube and orogastric tube are partially visualized. ACT 112: Negative or not required by law. Electronically signed by: Ad Mancini M.D. 03/28/2021 2:20 PM
[2021-03-28] MEDS: PEPTAMEN INTENSE VHP 1.0 CAL 1,000 ML BAG GT SCH (15:34)
[2021-03-28] MEDS ORDERED: VECURONIUM BROMIDE 10 MG VIAL IV STA (19:44)
[2021-03-28] MEDS ORDERED: ALBUTEROL HFA 8 GM INHALER INH ONE (19:44)
--- NOTE | 2021-03-28 19:50 | XRay Report ---
XR chest 1V portable HISTORY: Respiratory distress. valuate pneumo/plugging COMPARISON: Chest 03/27/2021. FINDINGS: Lines and tubes remain unchanged in position. No pneumothorax. Trace right pleural effusion . The heart remains mildly enlarged. Bilateral hazy airspace opacities persist. These are similar to the prior study. IMPRESSION: 1. Satisfactory support line placement. 2. No change in the bilateral hazy airspace opacities consistent with a viral pneumonia. ACT 112: Negative or not required by law. Electronically signed by: Ad Mancini M.D. 03/28/2021 7:49 PM
[2021-03-28] MEDS ORDERED: CISATRACURIUM BESYLATE IV SOLN 2 MG/ML 10 ML VIAL IV STA (19:59)
[2021-03-28] MEDS ORDERED: MEPERIDINE HCL 25 MG/ML CARP/VIAL IV ONE (20:03)
[2021-03-28] MEDS: CISATRACURIUM BESYLATE 40 MG in 0.9 % SODIUM CHLORIDE 80 ML IV SCH ×2 (20:39→23:29)
[2021-03-28] MEDS: ARTIFICIAL TEARS OP OINT 3.5 GM TUBE OP SCH (20:40)
--- NOTE | 2021-03-28 23:04 | Communication Note ---
Date of Service: March 28, 2021 35 YOF HD #[id number] admitted for COVID pneumonia with hypoxic respiratory failure, intubated on 17 March for respiratory failure with acute extensive right sided pulmonary embolism. Patient require thrombolytics and has been on therapeutic anticoagulation since. She also remains on maximal ventilator therapy with PEEP 20 and FI02 of 100% as well as supplemental cardiovascular support with vasoactive medications. Tonight patient with hypoxia noted in the 70s with acute increase in her peak inspiratory pressures and EtCO2. She did not have any CXR findings concerning for acute pneumothorax or obstructive process, she was paralyzed with Nimbex with decrease in her PIPs to 400 and increase in her FIo2 to 88-91%. Patient then demonstrated ECG changes on her telemetry tracing at 2119, ECG was performed which shows St depression and inversion of T wave in her inferior and anterior leads which is new when compared to her ECG on . Troponin I returned at 0.554. This is likely demand NSTEMI secondary to her hypoxia, stress tachycardia and chronic need for vasoactive medications. She remains on therapeutic Lovenox and will attempt to wean her vasoactive medications the best we can to continue to support MAP 65. I have talked with the patient's sister Angelica, whom who is the one the family has directed us to for medical discussions as she is in the medical profession. We discussed her ventilatory status and continued need for maximal support, and as we are 21/2-3 weeks into her critical illness, requiring vasoactive support and full ventilatory support that we are likely going to be reaching a terminal state as her other organs are likely to start showing effects of the demand of poor ventilation/oxygenation/perfusion. She did voice that she feels that they need to start thinking of when to move to comfort care and asked if we were to extubate her would she . I said yes very likely that she will not be able to support her oxygen/ventilation needs and would likely in a short duration of time. She is also wondering if it she could keep going until Tuesday. I told her that every minute things can change with her and her oxygenation and hemodynamics are tenuous at best and any time could be a terminal event. I will discuss with clinical supervisors to clarify a plan to accommodate her family to view her to assist in making a decision. They would likely like to see her on the . Her respiratory status from earlier has recovered, but remains with high PIPS to the 40s, as for her ECG changes, will continue to track out her Troponin I and support- did discuss with cardiology for any other acute recommendations and for now we can only medically optimize and support. Her BP is unlikely to tolerate a lowering of her HR and she is on weight based Lovenox and continues to need vasoactive medications. Continue full ventilatory support. Will give ASA now.
[2021-03-28] MEDS ORDERED: ASPIRIN CHEW 324 MG NG STA (23:38)
[2021-03-29] MEDS: INSULIN ASPART 100 UNITS/ML 3 ML PEN SC SCH ×4 (00:13→12:21)
[2021-03-29] MEDS: ARTIFICIAL TEARS OP OINT 3.5 GM TUBE OP SCH ×4 (00:13→12:03)
[2021-03-29] MEDS: TUBE FEEDING WATER FLUSH GT SCH ×4 (00:30→12:03)
[2021-03-29] MEDS: propofoL 1,000 MG/100 ML VIAL IV SCH ×5 (01:27→16:21)
[2021-03-29] MEDS: CISATRACURIUM BESYLATE 40 MG in 0.9 % SODIUM CHLORIDE 80 ML IV SCH ×8 (01:41→12:03)
[2021-03-29] MEDS ORDERED: ACETAMINOPHEN 1000 MG/100 ML IV IV STA (02:56)
[2021-03-29] MEDS ORDERED: ACETAMINOPHEN 1000 MG/100 ML IV IV ONE (02:57)
[2021-03-29 05:20] LABS: BUN Creatinine Ratio 22.3 (10-20); Calcium 8.8 mg/dl (8.5-10.1); Creatinine Clr Calc Pharmacy 92.1 ml/min; Est GFR (African American) 67.3 ml/min; Est GFR (Non-African American) 58.1 ml/min; Phosphorus 4.4 mg/dl (2.5-4.9); Potassium 5.9 mmol/L (3.5-5.1); Troponin I 0.692 ng/ml (0-0.045)
[2021-03-29 05:49] LABS: Hematocrit (blood only) 33.6 % (37-47); Hemoglobin 9.7 g/dL (12.0-16.0); Mean Corpuscular Hemoglobin 25.8 pg (25-34); Mean Corpuscular Hgb Conc 28.9 g/dL (32-36); Mean Corpuscular Volume 89.4 fL (80-100); Mean Platelet Volume 9.3 fL (7.4-10.4); Nucleated RBC # (auto) 0.24 K/uL (0-0); Nucleated RBC % (auto) 1.1 %; Platelet Count 332 K/uL (130-400); RDW Coefficient of Variation 17.3 % (11.5-14.5); RDW Standard Deviation 56.5 fL (36.4-46.3); Red Blood Count 3.76 M/uL (4.2-5.4); White Blood Count 21.65 K/uL (4.8-10.8)
--- NOTE | 2021-03-29 05:55 | Communication Note ---
Date of Service: March 29, 2021 Patient ECG this morning with ST elevation to anterior leads with ST depression in inferior leads. With patient's critical illness and maximal ventilatory support already with high mortality, we are going to have to support her with medical treatment at this time. Will change her Heparin drip low dose no bolus, continue aspirin daily, and at this time can not reduce her HR in light of her vasopressor requirements for hypotension. Will optimize what we can. Discussed case with Dr. Colunga real time for complexity.
[2021-03-29] MEDS ORDERED: HEPARIN SODIUM/DEXTROSE 25,000 UNITS/500 ML BAG IV SCH (06:00)
[2021-03-29] MEDS: MIDAZOLAM HCL 125 MG/250 ML BAG IV SCH (06:18)
[2021-03-29] MEDS: fentaNYL citrate 2,500 MCG/250 ML BAG IV SCH (06:18)
[2021-03-29] MEDS: ICU ELECTROLYTE REPLACEMENT PROTOCOL SCH (06:51)
[2021-03-29 07:00] LABS: Partial Thromboplastin Ratio 1.1; Partial Thromboplastin Time 28.2 Seconds (21.0-31.0)
[2021-03-29 07:28] LABS: Basophils # (auto) 0.06 K/uL (0-0.2); Basophils % (auto) 0.3 %; Eosinophils # (auto) 0.23 K/uL (0-0.5); Eosinophils % (auto) 1.1 %; Immature Granulocytes # (auto) 0.43 K/uL (0.00-0.02); Monocytes # (auto) 1.57 K/uL (0.11-0.59); Monocytes % (auto) 7.3 %; Neutrophils # (auto) 16.76 K/uL (1.4-6.5); Neutrophils % (auto) 77.3 %
[2021-03-29] MEDS: PIPERACILLIN/TAZOBACTAM 4.5 GM in DEXTROSE 5% 100 ML IV SCH (07:55)
[2021-03-29] MEDS: SUCRALFATE 1 GM TAB PO SCH ×2 (07:56→12:03)
[2021-03-29] MEDS: SENNOSIDES 8.8 MG/5 ML UDC PO SCH (07:57)
[2021-03-29] MEDS: POLYETHYLENE (MIRALAX) 17 GM PACK PO SCH (07:57)
[2021-03-29] MEDS: LACTULOSE SYRUP 20 GM/30 ML UDC PO SCH ×2 (07:57→12:05)
[2021-03-29] MEDS: FAMOTIDINE 40 MG TABLET PO SCH (07:57)
[2021-03-29] MEDS: POTASSIUM CHLORIDE 20 MEQ/15 ML UDC PO SCH (07:57)
[2021-03-29] MEDS: DOCUSATE SODIUM SYRUP 100 MG/10 ML UDC PO SCH (07:57)
[2021-03-29] MEDS: MAGNESIUM OXIDE 400 MG TAB PO SCH (08:04)
[2021-03-29] MEDS: oxyCODONE HCL SOLN 5 MG/5 ML UDC PO SCH (08:04)
[2021-03-29] MEDS: clonazePAM 0.5 MG TAB PO SCH (08:04)
[2021-03-29] MEDS: DAPTOmycin 525 MG in SYRINGE 0 ML IV SCH (08:07)
[2021-03-29] MEDS: Heparin IV Adult Wt-Based Low-Dose *NO* Bolus Protocol IV SCH ×2 (08:10→08:11)
[2021-03-29] MEDS ORDERED: ASPIRIN 81 MG CHEW NG SCH (09:00)
--- NOTE | 2021-03-29 11:01 | Cardiology Consultation ---
Date of Consultation March 29, 2021 Assessment & Plan (1) Pneumonia due to COVID-19 virus: (2) Pulmonary embolism: (3) Acute hypoxemic respiratory failure: (4) Myocardial infarct: Air the patient by EKG is most likely having anterior wall myocardial ischemia and injury. It is most likely multifactorial including a thrombotic event as well as hypoxia. She is critically ill and I believe that the risk versus benefit of taking her to the [facility] would favor continued medical treatment at this time. I agree with restarting IV heparin as well as aspirin, as well as, conservative management. History of Present Illness Attending Physician: Willie Lockwood MD History of Present Illness This is a 35-year-old female who has had a prolonged hospital stay after she presented with Covid pneumonia. On initial presentation she had pulmonary emboli and was treated with thrombolytics. She is currently in the ICU and remains intubated. She had been on IV heparin and due to volume concerns this medication was switched over to subcu Lovenox 2 days ago. Last evening she began to have EKG changes suggesting coronary ischemia and a slight elevation in her cardiac troponins. The switch over from heparin to Lovenox in addition to ongoing chronic hypoxia with O2 sats remaining in the 80s and most likely contributed to the above events. Allergies Allergy/AdvReac Type Severity Reaction Status Date / Time verapamil AdvReac Unknown "Black Out" Verified 03/09/21 21:49 Home Medications Medication Instructions Recorded Confirmed Type metformin 1,000 mg tablet 1,000 mg PO QAM 03/29/18 03/09/21 History bupropion HCl 150 mg 24 hr tablet, 150 mg PO QAM 02/13/20 03/09/21 History extended release chlorthalidone 25 mg tablet 25 mg PO QAM 02/13/20 03/09/21 History famotidine 40 mg tablet 40 mg PO QAM 02/13/20 03/09/21 History lisinopril 10 mg tablet 10 mg PO QAM 02/13/20 03/09/21 History sucralfate 1 gram tablet 1 g PO ACHS 02/13/20 03/09/21 History clonazepam 1 mg tablet 1 mg PO TID PRN 03/03/20 03/09/21 History escitalopram oxalate 10 mg tablet 30 mg PO QAM 03/03/20 03/09/21 History hydroxyzine HCl 25 mg tablet 25 - 50 mg PO HS 03/03/20 03/09/21 History meclizine 25 mg tablet 25 mg PO DAILY PRN 06/02/20 03/09/21 History diclofenac sodium 75 mg 75 mg PO BID #60 tab 07/28/20 03/09/21 Rx tablet,delayed release buspirone 10 mg tablet 10 mg PO QAM 12/02/20 03/09/21 History ketorolac 60 mg/2 mL intramuscular 30 mg IM WK PRN 30 Days #4 ml 01/12/21 03/09/21 Rx solution syringe with needle 3 mL 21 gauge #100 ea 01/12/21 Rx x 1 1/2" (BD Luer-Indira Syringe) hydromorphone 4 mg tablet 4 mg PO DAILY PRN 30 Days #8 tab 02/02/21 03/09/21 Rx Patient History Medical History Anxiety Benign positional vertigo treated PRN Cervical radiculopathy Chronic migraine without aura with status migrainosus, not intractable Depression GERD (gastroesophageal reflux disease) Hx of endometriosis Hypertension Insomnia Kidney stones Lumbar spinal stenosis Nausea and vomiting after administration of anesthetic agent Peptic ulcer disease hx Pre-diabetes Sleep apnea bipap Surgical History H/O section (04/28/11) x1 History of cholecystectomy (01/27/13) History of dilatation and curettage History of esophagogastroduodenoscopy (EGD) History of laparoscopy History of ovarian cystectomy x2 S/P epidural steroid injection Family History Mother Diabetes Hypertension Stroke syndrome Chronic kidney disease Congestive heart failure Sarcoidosis Father Heart disease Hypertension Social History Smoking Status: Former smoker Second Hand Exposure: Yes (); Do You Dip or Chew Tobacco: No; Hx Alcohol Use: Yes Hx Substance Use: No Preferred Language: Samoan Communication Ability: Effective Visual Impairment: No Limitations Hearing Ability: Normal District Court Bailiff Required: No Beliefs That Will Affect Care: None marital status: Current Living Situation: Family Current Living Situation Comment: , daugher and father current occupational status: employed 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 Other Information That Helps Us Care for You: No Feels Safe at Home: Yes Safety Concerns: Feels Safe At This Time Assistive Devices: Oxygen - Continuous Review of Systems Review of Systems: Not obtainable Physical Exam Physical Exam: General: Intubated Head: normocephalic, no masses, lesions, tenderness or abnormalities Eyes: conjunctiva are pink and non-injected, sclera clear Neck: supple, no adenopathy, no bruits, normal jugular venous pulse, no hepatojugular reflux Chest: normal shape and normal respiratory effort Lungs: Equal B/L Cardiac Exam: - regular rate & rhythm, no murmurs gallops or rubs - normal S1, normal S2 Pulses: 2(+) throughout Abdomen: abdomen soft, non-tender, no abnormal masses and no hepatosplenomegaly Musculoskeletal: no gait disturbance, no joint inflammation, no deforming arthritis Extremities: no edema and no cyanosis Neuro: grossly normal exam Results & Data ([facility]) Vital Signs (Past 12 Hours) Vital Signs Temp Pulse Resp BP Pulse Ox 03/29/21 07:25 117 H 33 H 95 03/29/21 06:30 39.2 C H 120 H 32 H 100/68 94 03/29/21 06:15 39.1 C H 121 H 32 H 100/67 94 03/29/21 06:00 39.1 C H 120 H 32 H 102/65 94 03/29/21 05:45 39.1 C H 122 H 32 H 99/61 L 93 03/29/21 05:30 39.1 C H 122 H 32 H 98/64 L 92 03/29/21 05:15 39.1 C H 124 H 32 H 105/63 92 03/29/21 05:00 39.1 C H 127 H 32 H 99/63 L 92 03/29/21 04:50 128 H 33 H 93 03/29/21 04:45 39.0 C H 128 H 32 H 107/71 93 03/29/21 04:30 38.9 C H 130 H 32 H 113/79 93 03/29/21 04:15 38.9 C H 124 H 32 H 116/74 94 03/29/21 04:00 38.9 C H 124 H 32 H 121/80 94 03/29/21 03:45 39.0 C H 123 H 32 H 120/79 94 03/29/21 03:30 39.0 C H 130 H 32 H 100/77 93 03/29/21 03:15 39.1 C H 132 H 32 H 106/69 93 03/29/21 03:00 39.2 C H 130 H 32 H 116/75 93 03/29/21 02:45 39.2 C H 129 H 32 H 111/76 92 03/29/21 02:30 39.2 C H 129 H 32 H 100/78 93 03/29/21 02:24 131 H 32 H 92 03/29/21 02:15 131 H 32 H 112/72 92 03/29/21 02:00 40.0 C H 133 H 32 H 91 03/29/21 01:45 39.9 C H 132 H 32 H 102/61 91 03/29/21 01:30 39.9 C H 132 H 32 H 114/63 91 03/29/21 01:15 39.9 C H 132 H 32 H 106/70 91 03/29/21 01:00 39.9 C H 134 H 32 H 113/66 91 03/29/21 00:45 39.9 C H 132 H 32 H 111/64 92 03/29/21 00:30 39.8 C H 132 H 32 H 108/68 91 03/29/21 00:15 39.7 C H 127 H 32 H 110/60 91 03/29/21 00:05 130 H 03/29/21 00:00 39.6 C H 119 H 32 H 118/75 93 03/28/21 23:45 39.6 C H 128 H 32 H 122/62 92 03/28/21 23:30 39.5 C H 128 H 32 H 103/74 91 03/28/21 23:15 39.4 C H 128 H 32 H 129/69 91 03/28/21 23:00 39.4 C H 127 H 32 H 122/70 90 Laboratory Results Laboratory Results - last 24 hr 03/28/21 03/28/21 03/28/21 12:08 12:53 13:18 WBC RBC Hgb Hct MCV MCH MCHC RDW Std Deviation RDW Coeff of Lucie Plt Count MPV Immature Gran % (Auto) Neut % (Auto) Lymph % (Auto) Dickens % (Auto) Eos % (Auto) Baso % (Auto) Neut # (Auto) Lymph # (Auto) Dickens # (Auto) Eos # (Auto) Baso # (Auto) Immature Gran # (Auto) Absolute Nucleated RBC Nucleated RBC % (auto) APTT PTT Ratio Heparin Anti-Xa, LM Wt 0.73 Sodium Potassium Chloride Carbon Dioxide Anion Gap BUN Creatinine Est Cr Clr Drug Dosing Est GFR ( Amer) Est GFR (Non-Af Amer) BUN/Creatinine Ratio Glucose POC Glucose 113 H Calcium Phosphorus Magnesium Troponin I Beta-(1,3)-D-Glucan Pending B-(1,3)-D-Glucan Intrp Pending 03/28/21 03/28/21 03/28/21 15:41 20:48 21:41 WBC RBC Hgb Hct MCV MCH MCHC RDW Std Deviation RDW Coeff of Lucie Plt Count MPV Immature Gran % (Auto) Neut % (Auto) Lymph % (Auto) Dickens % (Auto) Eos % (Auto) Baso % (Auto) Neut # (Auto) Lymph # (Auto) Dickens # (Auto) Eos # (Auto) Baso # (Auto) Immature Gran # (Auto) Absolute Nucleated RBC Nucleated RBC % (auto) APTT PTT Ratio Heparin Anti-Xa, LM Wt Sodium Potassium Chloride Carbon Dioxide Anion Gap BUN Creatinine Est Cr Clr Drug Dosing Est GFR ( Amer) Est GFR (Non-Af Amer) BUN/Creatinine Ratio Glucose POC Glucose 130 H 126 H Calcium Phosphorus Magnesium Troponin I 0.554 H* Beta-(1,3)-D-Glucan B-(1,3)-D-Glucan Intrp 03/28/21 03/29/21 03/29/21 23:36 04:19 04:19 WBC 21.65 H RBC 3.76 L Hgb 9.7 L Hct 33.6 L MCV 89.4 MCH 25.8 MCHC 28.9 L RDW Std Deviation 56.5 H RDW Coeff of Lucie 17.3 H Plt Count 332 MPV 9.3 Immature Gran % (Auto) 2.0 Neut % (Auto) 77.3 Lymph % (Auto) 12.0 Dickens % (Auto) 7.3 Eos % (Auto) 1.1 Baso % (Auto) 0.3 Neut # (Auto) 16.76 H Lymph # (Auto) 2.60 Dickens # (Auto) 1.57 H Eos # (Auto) 0.23 Baso # (Auto) 0.06 Immature Gran # (Auto) 0.43 H Absolute Nucleated RBC 0.24 H Nucleated RBC % (auto) 1.1 APTT PTT Ratio Heparin Anti-Xa, LM Wt Sodium 134 L Potassium 5.9 H D Chloride 98 Carbon Dioxide 40 H Anion Gap -4.0 L BUN 27 H Creatinine 1.20 Est Cr Clr Drug Dosing 92.1 Est GFR ( Amer) 67.3 Est GFR (Non-Af Amer) 58.1 BUN/Creatinine Ratio 22.3 H Glucose 127 H POC Glucose 121 H Calcium 8.8 Phosphorus 4.4 Magnesium Troponin I 0.692 H* Beta-(1,3)-D-Glucan B-(1,3)-D-Glucan Intrp 03/29/21 03/29/21 03/29/21 04:19 04:22 06:08 WBC RBC Hgb Hct MCV MCH MCHC RDW Std Deviation RDW Coeff of Lucie Plt Count MPV Immature Gran % (Auto) Neut % (Auto) Lymph % (Auto) Dickens % (Auto) Eos % (Auto) Baso % (Auto) Neut # (Auto) Lymph # (Auto) Dickens # (Auto) Eos # (Auto) Baso # (Auto) Immature Gran # (Auto) Absolute Nucleated RBC Nucleated RBC % (auto) APTT 28.2 PTT Ratio 1.1 Heparin Anti-Xa, LM Wt Sodium Potassium Chloride Carbon Dioxide Anion Gap BUN Creatinine Est Cr Clr Drug Dosing Est GFR ( Amer) Est GFR (Non-Af Amer) BUN/Creatinine Ratio Glucose POC Glucose 170 H Calcium Phosphorus Magnesium 2.7 H Troponin I Beta-(1,3)-D-Glucan B-(1,3)-D-Glucan Intrp 03/29/21 03/29/21 08:18 10:05 WBC RBC Hgb Hct MCV MCH MCHC RDW Std Deviation RDW Coeff of Lucie Plt Count MPV Immature Gran % (Auto) Neut % (Auto) Lymph % (Auto) Dickens % (Auto) Eos % (Auto) Baso % (Auto) Neut # (Auto) Lymph # (Auto) Dickens # (Auto) Eos # (Auto) Baso # (Auto) Immature Gran # (Auto) Absolute Nucleated RBC Nucleated RBC % (auto) APTT PTT Ratio Heparin Anti-Xa, LM Wt Sodium Potassium Chloride Carbon Dioxide Anion Gap BUN Creatinine Est Cr Clr Drug Dosing Est GFR ( Amer) Est GFR (Non-Af Amer) BUN/Creatinine Ratio Glucose POC Glucose 123 H Calcium Phosphorus Magnesium Troponin I 0.549 H* Beta-(1,3)-D-Glucan B-(1,3)-D-Glucan Intrp Diagnostic Findings EKG suggest an acute anterior wall myocardial infarction Medications Administered Current Inpatient Medications Acetaminophen (Acetaminophen Susp 325 Mg/10.15 Ml Udc) 650 mg PO Q4H PRN PRN Reason: Pain or Fever Stop: 04/26/21 09:57 Last Admin: 03/28/21 23:30 Dose: 650 mg Documented by: Albuterol (Albuterol Hfa 8 Gm Inhaler) 2 puffs INH Q2R PRN PRN Reason: sob/wheeze Stop: 04/10/21 00:12 Aspirin (Aspirin 81 Mg Chew) 81 mg NG QAM [facility] Stop: 04/28/21 08:59 Last Admin: 03/29/21 08:07 Dose: 81 mg Documented by: Clonazepam (Clonazepam 0.5 Mg Tab) 0.5 mg PO BID [facility] Stop: 04/22/21 20:59 Last Admin: 03/29/21 08:04 Dose: 0.5 mg Documented by: Dextrose (Dextrose 50% 50 Ml Syringe) 25 - 50 ml IV UD PRN; Protocol PRN Reason: Hypoglycemia Protocol Stop: 04/09/21 03:08 Last Admin: 03/23/21 04:22 Dose: 25 ml Documented by: Docusate Sodium (Docusate Sodium Syrup 100 Mg/10 Ml Udc) 100 mg PO BID [facility] Stop: 04/23/21 09:44 Last Admin: 03/29/21 07:57 Dose: Not Given Documented by: Famotidine (Famotidine 40 Mg Tablet) 40 mg PO QAM [facility] Stop: 04/09/21 08:59 Last Admin: 03/29/21 07:57 Dose: 40 mg Documented by: Fentanyl Citrate (Fentanyl Bolus From Bag) 50 mcg IV Q60M PRN PRN Reason: Pain or Agitation Stop: 03/31/21 10:47 Last Admin: 03/28/21 19:41 Dose: 50 mcg Documented by: Glucagon (Glucagon For Inj 1 Mg Vial) 1 mg SQ UD PRN; Protocol PRN Reason: Hypoglycemia Protocol Stop: 04/09/21 03:08 Glucose (Glucose 10 Tabs/Tube) 4 - 8 tabs PO UD PRN; Protocol PRN Reason: Hypoglycemia Protocol Stop: 04/09/21 03:08 Glucose (Glucose 40% Gel 15 Gm Tube) 15 - 30 gm PO UD PRN; Protocol PRN Reason: Hypoglycemia Protocol Stop: 04/09/21 03:08 Midazolam HCl (Versed) 125 mg in 250 mls @ 14 mls/hr IV .[id number] [facility]; Protocol Stop: 04/20/21 11:29 Last Titration: 03/29/21 07:05 Dose: 7 mg/hr, 14 mls/hr Documented by: Fentanyl Citrate (Fentanyl Citrate) 2,500 mcg in 250 mls @ 17.5 mls/hr IV .[id number] [facility]; Protocol Stop: 04/06/21 04:44 Last Titration: 03/29/21 07:05 Dose: 225 mcg/hr, 22.5 mls/hr Documented by: Daptomycin 525 mg/ Syringe 10.5 mls @ 5.25 mls/min IV DAILY@1000 [facility]; Protocol Stop: 04/09/21 09:59 Last Admin: 03/29/21 08:07 Dose: 5.25 mls/min Documented by: Norepinephrine Bitartrate (Levophed/D5w) 32 mg in 250 mls @ 4.77 mls/hr IV .Q24H [facility]; Protocol Stop: 04/25/21 10:29 Last Titration: 03/29/21 07:05 Dose: 0.08 mcg/kg/min, 4.8 mls/hr Documented by: Piperacillin Sod/Tazobactam (Sod 4.5 gm/ Dextrose) 120 mls @ 30 mls/hr IV Q8H [facility]; Protocol Stop: 04/03/21 15:59 Last Admin: 03/29/21 07:55 Dose: 30 mls/hr Documented by: Propofol (Diprivan) 1,000 mg in 100 mls @ 24.48 mls/hr IV .Q4H6M [facility]; Protocol Stop: 03/31/21 12:59 Last Admin: 03/29/21 07:55 Dose: 30 mcg/kg/min, 24.5 mls/hr Documented by: Cisatracurium Besylate 40 mg/ (Sodium Chloride) 100 mls @ 53.37 mls/hr IV .Q1H53M [facility]; Protocol Stop: 03/29/21 12:00 Last Admin: 03/29/21 10:07 Dose: 6 mcg/kg/min, 53.4 mls/hr Documented by: Heparin Sodium/Dextrose (Heparin Sodium/Dextrose) 25,000 units in 500 mls @ 20 mls/hr IV .Q24H [facility]; Protocol Stop: 04/28/21 05:59 Last Admin: 03/29/21 08:03 Dose: 1,000 units/hr, 20 mls/hr Documented by: Cisatracurium Besylate 80 mg/ (Sodium Chloride) 200 mls @ 53.37 mls/hr IV .Q3H45M [facility]; Protocol Stop: 04/28/21 11:59 Insulin Aspart (Insulin Aspart 100 Units/Ml 3 Ml Pen) 0 units SC Q4 [facility] Stop: 04/17/21 11:59 Last Admin: 03/29/21 08:18 Dose: Not Given Documented by: Lactulose (Lactulose Syrup 20 Gm/30 Ml Udc) 20 gm PO TID [facility] Stop: 04/25/21 13:59 Last Admin: 03/29/21 07:57 Dose: Not Given Documented by: Magnesium Oxide (Magnesium Oxide 400 Mg Tab) 400 mg PO BID [facility] Stop: 04/23/21 08:59 Last Admin: 03/29/21 08:04 Dose: 400 mg Documented by: Midazolam HCl (Midazolam Bolus From Bag) 2 mg IV Q60M PRN PRN Reason: Sedation Stop: 04/20/21 11:16 Last Admin: 03/28/21 19:40 Dose: 2 mg Documented by: Miscellaneous (Carbohydrates For Hypoglycemia ) 15 - 30 gm PO UD PRN PRN Reason: Hypoglycemia Protocol Stop: 04/09/21 03:08 Miscellaneous (Icu Electrolyte Replacement Protocol) 1 ea N/A BID@06,18 [facility]; Protocol Stop: 04/02/21 17:59 Last Admin: 03/29/21 06:51 Dose: 1 ea Documented by: Miscellaneous Information (Pharmacy Glycemic Mgmt Consult) 1 ea N/A UD PRN PRN Reason: Consult Stop: 04/17/21 09:45 Miscellaneous Information (Piperacill/Tazobac Consult Active) 1 ea N/A UD PRN PRN Reason: Consult Stop: 04/26/21 12:03 Multi-Ingredient Cream (Artificial Tears Op Oint 3.5 Gm Tube) 1 appln OP Q4H [facility] Stop: 04/27/21 19:59 Last Admin: 03/29/21 07:56 Dose: 1 appln Documented by: Nutritional Formula (Peptamen Intense Vhp 1.0 Donnell 1,000 Ml Bag) 1,000 ml GT CONT [facility]; Protocol Stop: 04/26/21 16:29 Last Admin: 03/28/21 15:34 Dose: 1,000 ml Documented by: Oxycodone HCl (Oxycodone Hcl Soln 5 Mg/5 Ml Udc) 5 mg PO BID [facility] Stop: 04/06/21 20:59 Last Admin: 03/29/21 08:04 Dose: 5 mg Documented by: Polyethylene Glycol (Polyethylene (Miralax) 17 Gm Pack) 17 gm PO DAILY [facility] Stop: 04/23/21 09:44 Last Admin: 03/29/21 07:57 Dose: Not Given Documented by: Potassium Chloride (Potassium Chloride 20 Meq/15 Ml Udc) 40 meq PO BID [facility] Stop: 04/23/21 08:59 Last Admin: 03/29/21 07:57 Dose: Not Given Documented by: Propofol (Propofol Bolus From Bag) 20 mg IV Q5M PRN PRN Reason: Sedation Stop: 03/31/21 12:54 Last Admin: 03/28/21 19:41 Dose: 20 mg Documented by: Sennosides (Sennosides 8.8 Mg/5 Ml Udc) 17.6 mg PO BID [facility] Stop: 04/23/21 09:44 Last Admin: 03/29/21 07:57 Dose: Not Given Documented by: Sterile Water (Tube Feeding Water Flush) 30 ml GT Q4H [facility] Stop: 04/26/21 16:29 Last Admin: 03/29/21 07:56 Dose: 30 ml Documented by: Sucralfate (Sucralfate 1 Gm Tab) 1 gm PO ACHS [facility] Stop: 04/09/21 07:29 Last Admin: 03/29/21 07:56 Dose: 1 gm Documented by:
[2021-03-29] MEDS: MAX Conc 128mcg/mL; 32mg in 250mL IV SCH (11:50)
[2021-03-29] MEDS: CISATRACURIUM BESYLATE 80 MG in SODIUM CHLORIDE 0.9% 160 ML IV SCH ×2 (12:00→16:23)
[2021-03-29] MEDS ORDERED: CISATRACURIUM BESYLATE 80 MG in SODIUM CHLORIDE 0.9% 160 ML IV SCH (12:00)
[2021-03-29] MEDS: ACETAMINOPHEN SUSP 325 MG/10.15 ML UDC PO PRN (12:09)
--- NOTE | 2021-03-29 12:14 | Critical Care Progress Note ---
Date of Service March 29, 2021 Assessment & Plan (1) Pneumonia due to COVID-19 virus: (2) Acute hypoxemic respiratory failure: (3) Pulmonary embolism: (4) Morbid obesity: Plan: Reason Critically Ill: Leigh Carballo is a 35 year old female w/ PMHx of DM, anxiety/depression, rheumatoid arthritis, obesity, distant 2.5 pack yr hx tobacco who presents w/ covid pneumonia and worsened hypoxemic respiratory failure due to pulmonary embolism. She has received tPA. Patient was intubated 03/17/21 for impending resp failure. 24-hour events: Overnight the patient developed EKG changes. These initially were T wave inversions but progressed to ST elevation in the anterior lateral leads. Lovenox was stopped and she was initiated on heparin and aspirin was added. Cardiology consultation was obtained. She continued to have episodes of ventilator dyssynchrony and peak and plateau pressures in the 50s and was placed back on paralytics. Patient's sister was updated on multiple occasions during the night. She remained significantly febrile and white count is markedly elevated up to 21,000 today Recommendations: Neuro -currently sedated on Versed and fentanyl as well as paralytics to promote ventilator synchrony. She is day 11 mechanical ventilation. We will continue low-dose oral clonazepam and OxyContin to try and wean fentanyl and Versed. Holding her outpatient antidepressants. Blood pressure is too soft to consider Precedex. Cardiac -suspect hypotension related to analgesia agents. Continue low-dose norepinephrine infusion as needed. She has EKG findings concerning for ischemia. Unclear if this represents complication related to COVID or not. Discontinue Lovenox and placed back on IV heparin. Start aspirin therapy. Discussed with cardiology. Given the severity of her illness, she is not really a candidate for other interventions at this point time and continued medical management was recommended. Respiratory -acute on chronic hypoxemic and hypercarbic respiratory failure. She remains with elevated end-tidal CO2 despite her current vent settings. She has fairly diffuse disease and has not responded favorably to proning in the past so I do not think this is an option. She has been declined for extracorporeal membrane oxygenation at 2 separate institutions. Recruitment maneuvers have not offered any benefit and inverse ratio ventilation resulted in clinical deterioration. She failed inhaled epoprostenol. Patient has received maximal therapy at this point time and there is nothing else to offer her. Plateau pressures remain elevated in the 40s however no other interventions are available at this point in time. Her vent settings are too high to consider tracheostomy currently. Is unclear what her transpulmonary pressures are at this point time, however I do suspect that they are likely high. Do not think esophageal monitoring would change outcomes or alter management at this point time GI -tube feeds advancing to goal. We will discontinue additional bowel regimen given need for Ana shield pepcid 40 IV qam. RENAL/LYTES -renal function is stable today. We will repeat a chemistry panel to follow-up on her elevated potassium although I suspect this may be artifactual. - [place]. Strict Is/Os. ENDO - ICU hyperglycemia protocol. HEME -mild anemia. No evidence of acute active ongoing bleeding. Heparin infusion ID -patient persistently febrile. Blood cultures 1 out of 2 coag negative staph. Urine culture with pansensitive E. coli. Sputum culture with no growth to date. Cultures of her nasal secretions have shown no growth to date. CT of the sinuses with pansinusitis, ENT consulted. Currently on daptomycin and Zosyn. Lines of all been changed out recently. Given her profound immune suppression and prolonged critical illness, she is at risk for fungal infections. Fungitell pending. Fungal blood cultures no growth to date. Will empirically place her on caspofungin to see if she responds favorably over the next 48 hours. LINES/IV ACCESS - PIVs intact. + Left subclavian central venous catheter. DVT PROPHYLAXIS - SCDs. Heparin drip, therapeutic code: full dispo: continue ICU status. Discussed w/ Chey and Roge regarding eval for ecmo: Not a candidate Patient remains critically ill at this point time with multiorgan system dysfunction/failure. Discussed with critical care nurse and respiratory therapy at bedside. She is on life support. Sister updated on a daily basis. Total of 46 minutes in critical care time was spent evaluation management stabilization this patient. DNR status. Admission and Anticipated Discharge Date Admission Date: March 10, 2021 Subjective Patient remains critically ill. She is intubated sedated and paralyzed on the mechanical ventilator. Review of Systems Review of Systems: Unobtainable due to endotracheal tube Physical Exam Physical Exam: Remains sedated on ventilator Constitutional: well developed, well nourished, + ill appearing and + obese Eyes: PERRL, conjunctivae normal, anicteric sclerae Neck: trachea midline, no thyromegaly Respiratory: + respiratory distress Auscultation: + diminished lung sounds and + crackles (At the bases) Cardiovascular: Rate/Rhythm: regular rate and regular rhythm; not tachycardic Heart Sounds: normal S1 and normal S2; no murmur Extremities: + edema (Trace edema bilaterally) Gastrointestinal (Abdomen): Inspection/Auscultation: normal bowel sounds; abdomen not distended Percussion/Palpation: abdomen soft; abdomen nontender Lymphatic: no cervical or axillary lymphadenopathy Results & Data Results & Data ([facility]) Vital Signs (Past 12 Hours) Vital Signs Temp Pulse Resp BP BP Pulse Ox 03/29/21 11:30 39.3 C H 122 H 32 H 83 L 03/29/21 11:00 39.2 C H 123 H 32 H 103/66 84 L 03/29/21 10:30 39.3 C H 123 H 32 H 84 L 03/29/21 10:00 39.2 C H 127 H 32 H 105/66 88 L 03/29/21 09:30 39.3 C H 126 H 32 H 91 03/29/21 09:00 39.2 C H 125 H 32 H 105/70 92 03/29/21 08:30 38.8 C H 112 H 32 H 93 03/29/21 08:00 39.3 C H 119 H 32 H 107/70 91 03/29/21 07:30 39.2 C H 120 H 32 H 91 03/29/21 07:25 117 H 33 H 95 03/29/21 07:00 39.2 C H 117 H 32 H 95 03/29/21 06:30 39.2 C H 120 H 32 H 100/68 94 03/29/21 06:15 39.1 C H 121 H 32 H 100/67 94 03/29/21 06:00 39.1 C H 120 H 32 H 102/65 94 03/29/21 05:45 39.1 C H 122 H 32 H 99/61 L 93 03/29/21 05:30 39.1 C H 122 H 32 H 98/64 L 92 03/29/21 05:15 39.1 C H 124 H 32 H 105/63 92 03/29/21 05:00 39.1 C H 127 H 32 H 99/63 L 92 03/29/21 04:50 128 H 33 H 93 03/29/21 04:45 39.0 C H 128 H 32 H 107/71 93 03/29/21 04:30 38.9 C H 130 H 32 H 113/79 93 03/29/21 04:15 38.9 C H 124 H 32 H 116/74 94 03/29/21 04:00 38.9 C H 124 H 32 H 121/80 94 03/29/21 03:45 39.0 C H 123 H 32 H 120/79 94 03/29/21 03:30 39.0 C H 130 H 32 H 100/77 93 03/29/21 03:15 39.1 C H 132 H 32 H 106/69 93 03/29/21 03:00 39.2 C H 130 H 32 H 116/75 93 03/29/21 02:45 39.2 C H 129 H 32 H 111/76 92 03/29/21 02:30 39.2 C H 129 H 32 H 100/78 93 03/29/21 02:24 131 H 32 H 92 03/29/21 02:15 131 H 32 H 112/72 92 03/29/21 02:00 40.0 C H 133 H 32 H 91 03/29/21 01:45 39.9 C H 132 H 32 H 102/61 91 03/29/21 01:30 39.9 C H 132 H 32 H 114/63 91 03/29/21 01:15 39.9 C H 132 H 32 H 106/70 91 03/29/21 01:00 39.9 C H 134 H 32 H 113/66 91 03/29/21 00:45 39.9 C H 132 H 32 H 111/64 92 03/29/21 00:30 39.8 C H 132 H 32 H 108/68 91 03/29/21 00:15 39.7 C H 127 H 32 H 110/60 91 Critical Care Results & Data Vital Signs (Past 12 Hours) Vital Signs Temp Pulse Resp BP BP Pulse Ox 03/29/21 11:30 39.3 C H 122 H 32 H 83 L 03/29/21 11:00 39.2 C H 123 H 32 H 103/66 84 L 03/29/21 10:30 39.3 C H 123 H 32 H 84 L 03/29/21 10:00 39.2 C H 127 H 32 H 105/66 88 L 03/29/21 09:30 39.3 C H 126 H 32 H 91 03/29/21 09:00 39.2 C H 125 H 32 H 105/70 92 03/29/21 08:30 38.8 C H 112 H 32 H 93 03/29/21 08:00 39.3 C H 119 H 32 H 107/70 91 03/29/21 07:30 39.2 C H 120 H 32 H 91 03/29/21 07:25 117 H 33 H 95 03/29/21 07:00 39.2 C H 117 H 32 H 95 03/29/21 06:30 39.2 C H 120 H 32 H 100/68 94 03/29/21 06:15 39.1 C H 121 H 32 H 100/67 94 03/29/21 06:00 39.1 C H 120 H 32 H 102/65 94 03/29/21 05:45 39.1 C H 122 H 32 H 99/61 L 93 03/29/21 05:30 39.1 C H 122 H 32 H 98/64 L 92 03/29/21 05:15 39.1 C H 124 H 32 H 105/63 92 03/29/21 05:00 39.1 C H 127 H 32 H 99/63 L 92 03/29/21 04:50 128 H 33 H 93 03/29/21 04:45 39.0 C H 128 H 32 H 107/71 93 03/29/21 04:30 38.9 C H 130 H 32 H 113/79 93 03/29/21 04:15 38.9 C H 124 H 32 H 116/74 94 03/29/21 04:00 38.9 C H 124 H 32 H 121/80 94 03/29/21 03:45 39.0 C H 123 H 32 H 120/79 94 03/29/21 03:30 39.0 C H 130 H 32 H 100/77 93 03/29/21 03:15 39.1 C H 132 H 32 H 106/69 93 03/29/21 03:00 39.2 C H 130 H 32 H 116/75 93 03/29/21 02:45 39.2 C H 129 H 32 H 111/76 92 03/29/21 02:30 39.2 C H 129 H 32 H 100/78 93 03/29/21 02:24 131 H 32 H 92 03/29/21 02:15 131 H 32 H 112/72 92 03/29/21 02:00 40.0 C H 133 H 32 H 91 03/29/21 01:45 39.9 C H 132 H 32 H 102/61 91 03/29/21 01:30 39.9 C H 132 H 32 H 114/63 91 03/29/21 01:15 39.9 C H 132 H 32 H 106/70 91 03/29/21 01:00 39.9 C H 134 H 32 H 113/66 91 03/29/21 00:45 39.9 C H 132 H 32 H 111/64 92 03/29/21 00:30 39.8 C H 132 H 32 H 108/68 91 03/29/21 00:15 39.7 C H 127 H 32 H 110/60 91 Lab & Micro Results (Past 24 Hours) RBC 3.76 M/uL (4.2-5.4) L 03/29/21 WBC 21.65 K/uL (4.8-10.8) H 03/29/21 Hgb 9.7 g/dL (12.0-16.0) L 03/29/21 Hct 33.6 % (37-47) L 03/29/21 MCV 89.4 fL (80-100) 03/29/21 MCH 25.8 pg (25-34) 03/29/21 MCHC 28.9 g/dL (32-36) L 03/29/21 RDW Standard Deviation 56.5 fL (36.4-46.3) H 03/29/21 RDW Coefficient of Variation 17.3 % (11.5-14.5) H 03/29/21 Plt Count 332 K/uL (130-400) 03/29/21 MPV 9.3 fL (7.4-10.4) 03/29/21 Nucleated Red Blood Cells % (auto) 1.1 % 03/29/21 Nucleated RBC Absolute Count (auto) 0.24 K/uL (0-0) H 03/29/21 Neutrophils (%) (Auto) 77.3 % 03/29/21 Lymphocytes (%) (Auto) 12.0 % 03/29/21 Monocytes # (Auto) 1.57 K/uL (0.11-0.59) H 03/29/21 Eosinophils # (Auto) 0.23 K/uL (0-0.5) 03/29/21 Immature Granulocyte % (Auto) 2.0 % 03/29/21 Neutrophils # (Auto) 16.76 K/uL (1.4-6.5) H 03/29/21 Lymphocytes # (Auto) 2.60 K/uL (1.2-3.4) 03/29/21 Monocytes # (Auto) 1.57 K/uL (0.11-0.59) H 03/29/21 Eosinophils # (Auto) 0.23 K/uL (0-0.5) 03/29/21 Basophils # (Auto) 0.06 K/uL (0-0.2) 03/29/21 Immature Granulocyte # (Auto) 0.43 K/uL (0.00-0.02) H 03/29/21 Na 134 mmol/L (136-145) L 03/29/21 K 5.9 mmol/L (3.5-5.1) H 03/29/21 Cl 98 mmol/L (98-107) 03/29/21 CO2 40 mmol/L (21-32) H 03/29/21 Anion Gap -4.0 (3-11) L 03/29/21 BUN 27 mg/dl (7-18) H 03/29/21 Creatinine 1.20 mg/dl (0.6-1.2) 03/29/21 Estimated GFR ( Amer) 67.3 ml/min 03/29/21 Estimated GFR (Non-Af Amer) 58.1 ml/min 03/29/21 BUN/Creatinine Ratio 22.3 (10-20) H 03/29/21 Glu 127 mg/dl (70-99) H 03/29/21 Ca 8.8 mg/dl (8.5-10.1) 03/29/21 Phosphorus Level 4.4 mg/dl (2.5-4.9) 03/29/21 Mg 2.7 mg/dl (1.8-2.4) H 03/29/21 04:19 03/29/21 Calcium Level 8.8 mg/dl (8.5-10.1) 03/29/21 04:19 03/29/21 Microbiology 03/28/21 13:18 Fungal Smear - Final Blood 03/27/21 04:19 Aerobic Blood Culture - Preliminary Blood No growth in Aerobic bottle after 48 hours. Anaerobic Blood Culture - Preliminary No growth in Anaerobic bottle after 48 hours. 03/27/21 04:39 Aerobic Blood Culture - Preliminary Blood No growth in Aerobic bottle after 48 hours. Anaerobic Blood Culture - Preliminary No growth in Anaerobic bottle after 48 hours. 03/26/21 10:06 Aerobic Blood Culture - Preliminary Blood No growth in Aerobic bottle after 48 hours. Anaerobic Blood Culture - Preliminary No growth in Anaerobic bottle after 48 hours. 03/27/21 08:05 Gram Stain - Final Sinus Aerobic and Anaerobic Culture - Preliminary Pin-point growth present, reincubating. Diagnostic Findings (Past 24 Hours) Sinuses CT 03/28/21 13:[address] DOSE: 819.87 mGy.cm HISTORY: persistent fevers, ? sinusitis. TECHNIQUE: Multiaxial CT images of the paranasal sinuses were performed and reformatted in the coronal plane without the use of contrast. A dose lowering technique was utilized adhering to the principles of ALARA. COMPARISON: None. FINDINGS: The visualized brain parenchyma and orbits are unremarkable. The paranasal sinuses are essentially completely opacified. There is partial opacification of the nasal cavity. Fluid within the posterior nasopharynx likely due to the endotracheal and orogastric tubes. Complete opacification of the mastoid air cells and middle ear cavities. No erosive changes identified. The ostiomeatal units are completely opacified. The lamina papyracea and orbital floors are intact. IMPRESSION: 1. Complete opacification of the paranasal sinuses and mastoid air cells/middle ear cavities. 2. Endotracheal tube and orogastric tube are partially visualized. ACT 112: Negative or not required by law. Electronically signed by: Ad Mancini M.D. 03/28/2021 2:20 PM Chest X-Ray 03/28/21 19:29 XR chest 1V portable HISTORY: Respiratory distress. valuate pneumo/plugging COMPARISON: Chest 03/27/2021. FINDINGS: Lines and tubes remain unchanged in position. No pneumothorax. Trace right pleural effusion. The heart remains mildly enlarged. Bilateral hazy airspace opacities persist. These are similar to the prior study. IMPRESSION: 1. Satisfactory support line placement. 2. No change in the bilateral hazy airspace opacities consistent with a viral pneumonia. ACT 112: Negative or not required by law. Electronically signed by: Ad Mancini M.D. 03/28/2021 7:49 PM I & O Totals 24 Hours 03/28/21 03/29/21 03/30/21 06:59 06:59 06:59 Intake Total 2520.843 / 2520.843 2290.616 / 2290.616 562.192 / 562.192 Output Total 1426 / 1426 925 / 925 Balance 1094.843 / 2343.891 6123.616 / 1365.616 562.192 / 562.192 Cumulative 03/09/21 16:38 thru 03/29/21 12:01 Intake Total 41499.716 Output Total 03429 Balance 7092.716 RT Ventilator Mngmt (Last Documented) Ventilator Ordered Settings Ventilator Support Mode Assist Control 03/29/21 10:00 Respiratory Rate 32 03/29/21 11:30 Ventilator Tidal Volume 300 03/29/21 10:00 Setting Minute Ventilation 9.4 03/29/21 10:00 Positive End Expiratory 20 03/29/21 10:00 Pressure Fraction of Inspired Oxygen 90 03/29/21 10:00 Peak Inspiratory Flow 27 03/27/21 16:00 Machine Comment increased to 100%O2 03/29/21 10:00 Ventilator - PT Measurements Respiratory Rate 32 Exhaled Tidal Volume 289 Minute Ventilation 9.4 Peak Inspiratory Airway 41 Pressure Plateau Pressure 37 Respiratory Cycle Inspiratory: 1:2.1 Expiratory Ratio Inspiratory Phase Time 0.60 End-Tidal CO2 70 Static Lung Compliance 17.00 Dynamic Lung Compliance 13.76 Normal Static Lung Compliance 43.00 Patient Measurements Comment Arthur [employer] aware of increased PIP and plateau pressures. In room, restarting paralytic. Coding Level of Care Code Critical Care 1st 30-74 mins Diagnoses Pneumonia due to COVID-19 virus U07.1; J12.82 Acute hypoxemic respiratory failure J96.01 Pulmonary embolism I26.99 Morbid obesity E66.01 Time Spent (min) 45
--- NOTE | 2021-03-29 12:49 | Pharmacy Report ---
Pharmacy Glycemic Short Note 2 - Date of Service March 29, 2021 - Glycemic Short BSG Results (Last 24 hours): 03/28/21 03/28/21 03/28/21 15:41 20:48 23:36 Glucose POC Glucose 130 H 126 H 121 H 03/29/21 03/29/21 03/29/21 04:19 04:22 08:18 Glucose 127 H POC Glucose 170 H 123 H 03/29/21 12:09 Glucose POC Glucose 104 H OUTPATIENT ANTIDIABETIC REGIMEN: * none * A1c = 6.6% 03/18/21 ASSESSMENT: 03/29/21 * Patient's BSGs yesterday were [id number] and today are 170-123-104 * Patient received 6 units of insulin yesterday and all BSGs < 180 mg/dL. * Continue to hold basal * Patient intubated and critically ill but requiring no insulin. Continue Novolog q4 03/27 * AM BSG 124 mg/dL, will continue low dose of lantus, BSGs have been stable all <180 mg/dL yesterdya (115-171 mg/dL) * Patient has received minimal correction doses of novolog, tube feeds continue at trickle. 03/25 * One BSG below goal range after patient received slightly higher dose of Lantus yesterday evening. Will decrease. * Novolog has been at the same parameters >72 hours, however, patient has been requiring/receiving hardly any Novolog. Concern for decrease in BSG's if tubefeeds are able to be titrated up with current parameters due to very low Lantus requirements - will loosen Novolog 03/24 * BSG's remain below goal range for ICU status patient after only 8 units of basal insulin yesterday. Will reduce further (possibly down to 0 units if BSG's remain below 120 mg/dL) and split BID based on BSG 03/23 * Hypoglycemia event this AM with BSG of 64 mg/dL. Etiology likely dual Lantus dose (although low dose at less than 0.1 units/kg) and Novolog coverage while on trickle tubefeeds. * BSG's have ranged 64-135 mg/dL over the last 24 hours. Significant changes required as this patient is ICU status (residing on ) therefore goal BSG range is 140-180 mg/dL. * Will stop Novolog coverage for *trickle* feeds, and only cover CHO if rate >= 20 mL/kg * Will reduce Lantus by 20% this AM, and then ongoing starting tomorrow will reduce dose (depending on BSG) and split BID PLAN FOR INPATIENT GLYCEMIC CONTROL: * Basal insulin * hold * Bolus insulin * NovoLog per scale Q 4 hrs * Goal Range: Low 110 mg/dL - High 140 mg/dL * Correction Factor: 30 mg/dL/unit * Nutritional / Prandial insulin per carb ratio of 1 unit per 10 grams CHO consumed via continuous tube feedings PLAN FOR DISCHARGE: * Would recommend diet/lifestyle modifications and outpatient follow-up to determine if uptitration of metformin is reasonable
[2021-03-29] MEDS ORDERED: CASPOFUNGIN 70 MG in SODIUM CHLORIDE 0.9% 250 ML IV SCH (13:00)
--- NOTE | 2021-03-29 13:01 | Hospitalist Progress Note ---
Date of Service March 29, 2021 Assessment & Plan (1) Acute hypoxemic respiratory failure: Plan: Extensive right-sided pulmonary embolism. CTA did show extensive right-sided pulmonary embolism no echocardiogram was available to assess RV strain The case discussed with alley cleaner in [place] Dr. Jacques and was not advised for any TPN given the hemodynamic stability and the patient has been under waiting list as there is no bed in ICU The case was discussed with alley cleaner Dr. Resendiz in [facility] and also Dr. Souza the manufacturing supervisor who decided to go ahead and give TPA for this patient and heparin. The patient received TPA and followed by intravenous heparin. Status post intubation on 03/17/2021 and remains sedated Repeat CAT scan did not show any massive embolism but showed continued progressive pneumonia secondary to COVID-19 infection. Patient received systemic thrombolysis. Remains on heparin infusion. The alley cleaner has been trying to get her into ECMO therapy at [facility]-ECMO therapy is denied Remains sedated and condition has been deteriorating Continue current management as per alley cleaner Conditions has not improved and has been deteriorating The ICU team is meeting with family members for further direction of care Appreciate palliative care input-not for comfort care yet Condition has been worsening and the patient is going towards multiorgan failure The family members are coming to see the patient through the window and elected to consider comfort care Acute PA Appreciate cardiology input and recommendation Heparin has been restarted and for conservative management Remains critical and overall condition has been worsening Fever Continues to have high temperature Has been on intravenous daptomycin and Zosyn Blood cultures remain negative Remains febrile Secondary to severe COVID-19 pneumonia Did not receive any vaccination for COVID-19 Continue with dexamethasone on admission and finished course of remdesivir. Appreciate pulmonary input and recommendation. Baricitinib has been stopped. C/w decadron and lasix. Repeat CTA did show progression of the pneumonia. Finished the course of dexamethasone, remdesivir and baricitinib As above H/O Hypertension Lisinopril is on hold H/O Anxiety/mood disorder: Continue her medications through the NG tube H/O DM2: Hold [employer] oral medications, well-controlled as of recent hemoglobin A1c of 5.19 November 2020 Basal insulin, ISS BG goal 1 10-1 40, carb count coverage, update hemoglobin A1c-6.3 as of 03/09/2021 Nutrition is maintained through NGt feeding -Tube feeds have been on hold given high residuals. Plan to start prokinetic to help with motility. DVT prophylaxis per Lovenox subcu Received TPA and now on Heparin Prognosis remains very poor-family members are aware Full code. Admission and Anticipated Discharge Date Admission Date: March 10, 2021 Subjective 03/11/2021 The patient was seen and examined in medical telemetry unit She has been requiring high flow oxygen to maintain saturation and received remdesivir yesterday Feels shortness of breath with minimal exertion but better at rest 03/12/2029 The patient was seen and examined in medical telemetry unit She has been requiring more oxygen to maintain saturation She is complying with prone positioning 03/13/2021 The patient was seen and examined in medical telemetry unit and in the Covid room Her condition has not improved and is still requiring 40 L of oxygen with 100% FiO2 to maintain saturation 03/14/2021 The patient was seen and examined in medical telemetry unit and in the Covid room She has been getting any better and requiring high flow oxygen to maintain saturation We will sought advice from manufacturing supervisor 03/15/2021 The patient was seen and examined in telemetry unit in Covid room She remains stable and is still requiring 4 L of oxygen to maintain saturation Clinically she feels a little bit better 03/16/2021 The patient was seen and examined in telemetry unit and in the Covid room She remains stable and has been requiring 40 L of oxygen with 100% FiO2 to maintain saturation As her condition has not been improving for the last 2 or 3 days CTA was ordered to rule out pulmonary embolism She did not have any chest pain, cough or hemoptysis 03/17/2021 The patient was seen and examined in telemetry unit and in the Covid room She is being intubated this morning 03/20/2021 The patient was seen and examined in telemetry unit and in the Covid room She remains intubated and the condition has not been getting any better The alley cleaner is trying to get her into ECMO therapy in [place] 03/21/2021 The patient was seen and examined in telemetry unit and in the Covid room She remains sedated and intubated 03/22/2021 The patient was seen and examined in telemetry unit She remains intubated and sedated and no significant events happened last night 03/25/2021 The patient was seen and examined in ICU Remains intubated and the condition has been deteriorating 03/26/2021 The patient was seen and examined in ICU She remains intubated and the condition has not been improved 03/27/2021 The patient was seen and examined in ICU Her condition has been deteriorating and going towards multiorgan failure 03/28/2021 The patient was seen and examined in ICU She remains intubated and intermittently sedated 03/29/2021 The patient was seen and examined in ICU She remains intubated and sedated Condition has been getting worse Review of Systems Review of Systems: Unobtainable due to endotracheal tube Physical Exam Physical Exam: Remains sedated on ventilator Constitutional: well developed, well nourished, + ill appearing and + obese Eyes: PERRL, conjunctivae normal, anicteric sclerae ENMT: external ear and nose normal, oropharynx normal Neck: trachea midline, no thyromegaly Respiratory: no respiratory distress Auscultation: + diminished lung sounds and + crackles (At the bases) Cardiovascular: Rate/Rhythm: regular rate and regular rhythm; not tachycardic Heart Sounds: normal S1 and normal S2; no murmur Extremities: + edema (Trace edema bilaterally) Gastrointestinal (Abdomen): Inspection/Auscultation: normal bowel sounds; abdomen not distended Percussion/Palpation: abdomen soft; abdomen nontender Neurologic: Remains intubated and sedated Lymphatic: no cervical or axillary lymphadenopathy Results & Data Results & Data ([facility]) Vital Signs (Past 12 Hours) Vital Signs Temp Pulse Resp BP BP Pulse Ox 03/29/21 12:30 39.2 C H 122 H 32 H 89/60 L 83 L 03/29/21 12:00 39.3 C H 122 H 32 H 83 L 03/29/21 11:30 39.3 C H 122 H 32 H 83 L 03/29/21 11:00 39.2 C H 123 H 32 H 103/66 84 L 03/29/21 10:30 39.3 C H 123 H 32 H 84 L 03/29/21 10:00 39.2 C H 127 H 32 H 105/66 88 L 03/29/21 09:30 39.3 C H 126 H 32 H 91 03/29/21 09:00 39.2 C H 125 H 32 H 105/70 92 03/29/21 08:30 38.8 C H 112 H 32 H 93 03/29/21 08:00 39.3 C H 119 H 32 H 107/70 91 03/29/21 07:30 39.2 C H 120 H 32 H 91 03/29/21 07:25 117 H 33 H 95 03/29/21 07:00 39.2 C H 117 H 32 H 95 03/29/21 06:30 39.2 C H 120 H 32 H 100/68 94 03/29/21 06:15 39.1 C H 121 H 32 H 100/67 94 03/29/21 06:00 39.1 C H 120 H 32 H 102/65 94 03/29/21 05:45 39.1 C H 122 H 32 H 99/61 L 93 03/29/21 05:30 39.1 C H 122 H 32 H 98/64 L 92 03/29/21 05:15 39.1 C H 124 H 32 H 105/63 92 03/29/21 05:00 39.1 C H 127 H 32 H 99/63 L 92 03/29/21 04:50 128 H 33 H 93 03/29/21 04:45 39.0 C H 128 H 32 H 107/71 93 03/29/21 04:30 38.9 C H 130 H 32 H 113/79 93 03/29/21 04:15 38.9 C H 124 H 32 H 116/74 94 03/29/21 04:00 38.9 C H 124 H 32 H 121/80 94 03/29/21 03:45 39.0 C H 123 H 32 H 120/79 94 03/29/21 03:30 39.0 C H 130 H 32 H 100/77 93 03/29/21 03:15 39.1 C H 132 H 32 H 106/69 93 03/29/21 03:00 39.2 C H 130 H 32 H 116/75 93 03/29/21 02:45 39.2 C H 129 H 32 H 111/76 92 03/29/21 02:30 39.2 C H 129 H 32 H 100/78 93 03/29/21 02:24 131 H 32 H 92 03/29/21 02:15 131 H 32 H 112/72 92 03/29/21 02:00 40.0 C H 133 H 32 H 91 03/29/21 01:45 39.9 C H 132 H 32 H 102/61 91 03/29/21 01:30 39.9 C H 132 H 32 H 114/63 91 03/29/21 01:15 39.9 C H 132 H 32 H 106/70 91 03/29/21 01:00 39.9 C H 134 H 32 H 113/66 91 Laboratory Results Short CBC 03/29/21 Range/Units 04:19 WBC 21.65 H (4.8-10.8) K/uL Hgb 9.7 L (12.0-16.0) g/dL Hct 33.6 L (37-47) % Plt Count 332 (130-400) K/uL BMP 03/29/21 04:19 Sodium 134 L Potassium 5.9 H D Chloride 98 Carbon Dioxide 40 H BUN 27 H Creatinine 1.20 Glucose 127 H Calcium 8.8 Cardiac Enzymes 03/28/21 03/29/21 03/29/21 Range/Units 21:41 04:19 10:05 Troponin I 0.554 H* 0.692 H* 0.549 H* (0-0.045) ng/ml Medications Administered Current Inpatient Medications Acetaminophen (Acetaminophen Susp 325 Mg/10.15 Ml Udc) 650 mg PO Q4H PRN PRN Reason: Pain or Fever Stop: 04/26/21 09:57 Last Admin: 03/29/21 12:09 Dose: 650 mg Documented by: Albuterol (Albuterol Hfa 8 Gm Inhaler) 2 puffs INH Q2R PRN PRN Reason: sob/wheeze Stop: 04/10/21 00:12 Aspirin (Aspirin 81 Mg Chew) 81 mg NG QAM [facility] Stop: 04/28/21 08:59 Last Admin: 03/29/21 08:07 Dose: 81 mg Documented by: Clonazepam (Clonazepam 0.5 Mg Tab) 0.5 mg PO BID [facility] Stop: 04/22/21 20:59 Last Admin: 03/29/21 08:04 Dose: 0.5 mg Documented by: Dextrose (Dextrose 50% 50 Ml Syringe) 25 - 50 ml IV UD PRN; Protocol PRN Reason: Hypoglycemia Protocol Stop: 04/09/21 03:08 Last Admin: 03/23/21 04:22 Dose: 25 ml Documented by: Famotidine (Famotidine 40 Mg Tablet) 40 mg PO QAM [facility] Stop: 04/09/21 08:59 Last Admin: 03/29/21 07:57 Dose: 40 mg Documented by: Fentanyl Citrate (Fentanyl Bolus From Bag) 50 mcg IV Q60M PRN PRN Reason: Pain or Agitation Stop: 03/31/21 10:47 Last Admin: 03/28/21 19:41 Dose: 50 mcg Documented by: Glucagon (Glucagon For Inj 1 Mg Vial) 1 mg SQ UD PRN; Protocol PRN Reason: Hypoglycemia Protocol Stop: 04/09/21 03:08 Glucose (Glucose 10 Tabs/Tube) 4 - 8 tabs PO UD PRN; Protocol PRN Reason: Hypoglycemia Protocol Stop: 04/09/21 03:08 Glucose (Glucose 40% Gel 15 Gm Tube) 15 - 30 gm PO UD PRN; Protocol PRN Reason: Hypoglycemia Protocol Stop: 04/09/21 03:08 Midazolam HCl (Versed) 125 mg in 250 mls @ 14 mls/hr IV .[id number] [facility]; Protocol Stop: 04/20/21 11:29 Last Titration: 03/29/21 07:05 Dose: 7 mg/hr, 14 mls/hr Documented by: Fentanyl Citrate (Fentanyl Citrate) 2,500 mcg in 250 mls @ 17.5 mls/hr IV .[id number] [facility]; Protocol Stop: 04/06/21 04:44 Last Titration: 03/29/21 07:05 Dose: 225 mcg/hr, 22.5 mls/hr Documented by: Daptomycin 525 mg/ Syringe 10.5 mls @ 5.25 mls/min IV DAILY@1000 [facility]; Protocol Stop: 04/09/21 09:59 Last Admin: 03/29/21 08:07 Dose: 5.25 mls/min Documented by: Norepinephrine Bitartrate (Levophed/D5w) 32 mg in 250 mls @ 4.77 mls/hr IV .Q24H [facility]; Protocol Stop: 04/25/21 10:29 Last Admin: 03/29/21 11:50 Dose: Not Given Documented by: Piperacillin Sod/Tazobactam (Sod 4.5 gm/ Dextrose) 120 mls @ 30 mls/hr IV Q8H [facility]; Protocol Stop: 04/03/21 15:59 Last Infusion: 03/29/21 12:22 Dose: Infused Documented by: Propofol (Diprivan) 1,000 mg in 100 mls @ 24.48 mls/hr IV .Q4H6M [facility]; Protocol Stop: 03/31/21 12:59 Last Admin: 03/29/21 12:05 Dose: 30 mcg/kg/min, 24.5 mls/hr Documented by: Heparin Sodium/Dextrose (Heparin Sodium/Dextrose) 25,000 units in 500 mls @ 20 mls/hr IV .Q24H [facility]; Protocol Stop: 04/28/21 05:59 Last Admin: 03/29/21 08:03 Dose: 1,000 units/hr, 20 mls/hr Documented by: Cisatracurium Besylate 80 mg/ (Sodium Chloride) 200 mls @ 53.37 mls/hr IV .Q3H45M [facility]; Protocol Stop: 04/28/21 11:59 Last Admin: 03/29/21 12:00 Dose: 6 mcg/kg/min, 53.4 mls/hr Documented by: Caspofungin 70 mg/ Sodium (Chloride) 260 mls @ 250 mls/hr IV DAILY [facility] Stop: 03/31/21 12:29 Insulin Aspart (Insulin Aspart 100 Units/Ml 3 Ml Pen) 0 units SC Q4 [facility] Stop: 04/17/21 11:59 Last Admin: 03/29/21 12:21 Dose: Not Given Documented by: Midazolam HCl (Midazolam Bolus From Bag) 2 mg IV Q60M PRN PRN Reason: Sedation Stop: 04/20/21 11:16 Last Admin: 03/28/21 19:40 Dose: 2 mg Documented by: Miscellaneous (Carbohydrates For Hypoglycemia ) 15 - 30 gm PO UD PRN PRN Reason: Hypoglycemia Protocol Stop: 04/09/21 03:08 Miscellaneous (Icu Electrolyte Replacement Protocol) 1 ea N/A BID@06,18 [facility]; Protocol Stop: 04/02/21 17:59 Last Admin: 03/29/21 06:51 Dose: 1 ea Documented by: Miscellaneous Information (Pharmacy Glycemic Mgmt Consult) 1 ea N/A UD PRN PRN Reason: Consult Stop: 04/17/21 09:45 Miscellaneous Information (Piperacill/Tazobac Consult Active) 1 ea N/A UD PRN PRN Reason: Consult Stop: 04/26/21 12:03 Multi-Ingredient Cream (Artificial Tears Op Oint 3.5 Gm Tube) 1 appln OP Q4H [facility] Stop: 04/27/21 19:59 Last Admin: 03/29/21 12:03 Dose: 1 appln Documented by: Nutritional Formula (Peptamen Intense Vhp 1.0 Donnell 1,000 Ml Bag) 1,000 ml GT CONT [facility]; Protocol Stop: 04/26/21 16:29 Last Admin: 03/28/21 15:34 Dose: 1,000 ml Documented by: Oxycodone HCl (Oxycodone Hcl Soln 5 Mg/5 Ml Udc) 5 mg PO BID [facility] Stop: 04/06/21 20:59 Last Admin: 03/29/21 08:04 Dose: 5 mg Documented by: Polyethylene Glycol (Polyethylene (Miralax) 17 Gm Pack) 17 gm PO DAILY [facility] Stop: 04/23/21 09:44 Last Admin: 03/29/21 07:57 Dose: Not Given Documented by: Potassium Chloride (Potassium Chloride 20 Meq/15 Ml Udc) 40 meq PO BID [facility] Stop: 04/23/21 08:59 Last Admin: 03/29/21 07:57 Dose: Not Given Documented by: Propofol (Propofol Bolus From Bag) 20 mg IV Q5M PRN PRN Reason: Sedation Stop: 03/31/21 12:54 Last Admin: 03/28/21 19:41 Dose: 20 mg Documented by: Sterile Water (Tube Feeding Water Flush) 30 ml GT Q4H [facility] Stop: 04/26/21 16:29 Last Admin: 03/29/21 12:03 Dose: 30 ml Documented by: Sucralfate (Sucralfate 1 Gm Tab) 1 gm PO ACHS [facility] Stop: 04/09/21 07:29 Last Admin: 03/29/21 12:03 Dose: 1 gm Documented by:
[2021-03-29 15:24] LABS: Partial Thromboplastin Ratio 1.4; Partial Thromboplastin Time 36.7 Seconds (21.0-31.0)
[2021-03-29] MEDS ORDERED: ONDANSETRON 4 MG OD TAB SL PRN (16:09)
[2021-03-29] MEDS ORDERED: LORazepam 0.5 MG TAB PO PRN (16:09)
[2021-03-29] MEDS ORDERED: GLYCOPYRROLATE 0.2 MG/ML VIAL IV PRN (16:09)
[2021-03-29] MEDS ORDERED: LORazepam 0.5 MG/1 ML VIAL IV PRN (16:09)
[2021-03-29] MEDS ORDERED: ONDANSETRON INJ 2 MG/ML 2 ML VIAL IV PRN (16:09)
--- NOTE | 2021-03-29 18:33 | Communication Note ---
Date of Service: March 29, 2021 Asked to pronounce: The patient's condition was deteriorating with multiorgan failure and up with approval from the patient's for comfort care the patient was extubated and subsequently she . On examination Completely unconscious-no response with any stimuli No spontaneous breathing, no pulse and/or blood pressure Pupils dilated and fixed She was pronounced on 03/29/2021 at 1750 hrs. Causes of are as follows: Pneumonia due to COVID-19 COVID-19 virus infection Acute pulmonary embolism Acute myocardial infarction Type [address] Kayode Lockwood
--- NOTE | 2021-03-30 16:13 | Electrocardiogram Report ---
Test Reason : Blood Pressure : / mmHG Vent. Rate : 128 BPM Atrial Rate : 128 BPM P-R Int : 112 ms QRS Dur : 088 ms QT Int : 296 ms P-R-T Axes : 066 069 -31 degrees QTc Int : 432 ms Sinus tachycardia Possible Left atrial enlargement Abnormal ECG When compared with ECG of 21-MAR-2021 10:17, HR has increased Ischemia is now present Confirmed by Galdino Harding ([id number]) on 03/30/2021 4:12:37 PM Referred By: REFERRED SELF Confirmed By:Galdino Harding
--- NOTE | 2021-03-30 16:46 | Electrocardiogram Report ---
Test Reason : Blood Pressure : / mmHG Vent. Rate : 123 BPM Atrial Rate : 123 BPM P-R Int : 114 ms QRS Dur : 086 ms QT Int : 324 ms P-R-T Axes : 065 068 000 degrees QTc Int : 463 ms Age and gender specific ECG analysis Sinus tachycardia ST elevation consider anterior injury or acute infarct ACUTE [place] / STEMI Abnormal ECG When compared with ECG of 28-MAR-2021 21:23, (unconfirmed) ST elevation now present in Anterior leads Confirmed by Galdino Harding ([id number]) on 03/30/2021 4:45:58 PM Referred By: REFERRED SELF Confirmed By:Galdino Harding
--- NOTE | 2021-03-30 19:31 | Discharge Summary ---
Date of Service March 30, 2021 Admission HPI Per Admitting Provider History obtained from patient and records. Medical history significant for hypertension, anxiety/mood disorder, migraine, DM2 on oral medications, past tobacco abuse Last week, patient noted sinus congestion symptoms. Sick COVID-19 contacts at work and at home. Patient prescribed Augmentin course. Outpatient COVID-19 test later noted to be positive. Throbbing migraine attack a few days later. Junky cough, patient unable to expectorate. Worsening shortness of breath without chest pain. Patient PCP prescribed Medrol Dosepak yesterday. Patient consulted ER for worsening symptoms. O2 sats 80s at 1 point. IV Decadron administered at the ER. 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 Exam Per Admitting Provider Physical Exam: GENERAL: Comfortable, slightly anxious, morbidly obese, no respiratory distress SKIN: Normal color, warm HEENT: Bespectacled, [place] palpebral conjunctivae, no ptosis, dry buccal mucosa, nasal cannula in place NECK : Supple, short neck, no tenderness CHEST : Decreased breath sounds,, no tenderness HEART : RRR, no obvious murmurs ABDOMEN: Some distention, nontender EXTREMITIES : Minimal LE swelling, no LE tenderness, no other conspicuous deformities noted NEUROLOGIC : Coherent, no facial asymmetry, no other gross focality Principal Diagnosis The patient on 03/29/2001 at 1750 hrs. Causes of are as follows: Pneumonia due to COVID-19 COVID-19 virus infection Acute pulmonary embolism Acute myocardial infarction Type 2 diabetes Obesity Discharge Exam Constitutional well developed, well nourished, + ill appearing and + obese Eyes PERRL, conjunctivae normal, anicteric sclerae ENMT external ear and nose normal, oropharynx normal Neck trachea midline, no thyromegaly Respiratory no respiratory distress Auscultation: + diminished lung sounds and + crackles (At the bases) Cardiovascular Rate/Rhythm: regular rate and regular rhythm; not tachycardic Heart Sounds: normal S1 and normal S2; no murmur Extremities: + edema (Trace edema bilaterally) Gastrointestinal (Abdomen) Inspection/Auscultation: normal bowel sounds; abdomen not distended Percussion/Palpation: abdomen soft; abdomen nontender Lymphatic no cervical or axillary lymphadenopathy Discharge Data Allergies Allergy/AdvReac Type Severity Reaction Status Date / Time verapamil AdvReac Unknown "Black Out" Verified 03/09/21 21:49 Consultations 03/09/21 22:46 ED Decision to Admit Stat 03/14/21 10:27 Consult Pulmonology Routine 03/26/21 09:44 Consult Palliative Care Routine 03/28/21 14:31 Consult Otolaryngology (Head and Neck) Routine 03/28/21 22:53 Consult Cardiology Routine 03/29/21 16:10 Consult Palliative Care Routine Ordered Studies 03/16/21 13:27 CT angio chest PE protocol Urgent 03/20/21 11:04 CT angio chest PE protocol Stat 03/27/21 20:39 US point of care ultrasound Stat 03/28/21 13:04 CT sinus wo con Routine Hospital Course (1) Acute hypoxemic respiratory failure: Extensive right-sided pulmonary embolism. CTA did show extensive right-sided pulmonary embolism no echocardiogram was available to assess RV strain The case discussed with rn diabetes educator in [place] Dr. Jacques and was not advised for any TPN given the hemodynamic stability and the patient has been under waiting list as there is no bed in ICU The case was discussed with rn diabetes educator Dr. Resendiz in [facility] and also Dr. Souza the senior dynamics crm developer who decided to go ahead and give TPA for this patient and heparin. The patient received TPA and followed by intravenous heparin. Status post intubation on 03/17/2021 and remains sedated Repeat CAT scan did not show any massive embolism but showed continued progressive pneumonia secondary to COVID-19 infection. Patient received systemic thrombolysis. Remains on heparin infusion. The rn diabetes educator has been trying to get her into ECMO therapy at [facility]-ECMO therapy is denied Remains sedated and condition has been deteriorating Continue current management as per rn diabetes educator Conditions has not improved and has been deteriorating The ICU team is meeting with family members for further direction of care Appreciate palliative care input-not for comfort care yet Condition has been worsening and the patient is going towards multiorgan failure The family members are coming to see the patient through the window and elected to consider comfort care Acute AL Appreciate cardiology input and recommendation Heparin has been restarted and for conservative management Remains critical and overall condition has been worsening Fever Continues to have high temperature Has been on intravenous daptomycin and Zosyn Blood cultures remain negative Remains febrile Secondary to severe COVID-19 pneumonia Did not receive any vaccination for COVID-19 Continue with dexamethasone on admission and finished course of remdesivir. Appreciate pulmonary input and recommendation. Baricitinib has been stopped. C/w decadron and lasix. Repeat CTA did show progression of the pneumonia. Finished the course of dexamethasone, remdesivir and baricitinib As above H/O Hypertension Lisinopril is on hold H/O Anxiety/mood disorder: Continue her medications through the NG tube H/O DM2: Hold [employer] oral medications, well-controlled as of recent hemoglobin A1c of 5.19 November 2020 Basal insulin, ISS BG goal 1 10-1 40, carb count coverage, update hemoglobin A1c-6.3 as of 03/09/2021 Nutrition is maintained through NGt feeding -Tube feeds have been on hold given high residuals. Plan to start prokinetic to help with motility. DVT prophylaxis per Lovenox subcu Received TPA and now on Heparin Prognosis remains very poor-family members are aware Full code. Total Time Total Time Spent Total Time Spent (In Minutes): 30 minutes Discharge Plan Discharge Items Patient Disposition: Other Date/Time: 03/29/21 17:50
== END 2021-03-29 20:26 | disposition expired | DRG 207 ==
LOC: ED 16:38 → 2N 03-10 00:16 → SUATTDRO 03-10 00:16 → 2N 03-10 02:51 → 2E 03-14 19:18 → 1E 03-24 09:50